=== PATIENT | female | born 1960 | race Caucasian/White ===

== ENCOUNTER → 2018-03-06 15:42 | Outpatient (CLI) | payer MEDICAID, SELFPAY ==
--- NOTE | 2018-03-06 15:44 | BI_ITS ---
MAMMOGRAPHY - BILATERAL SCREENING REASON FOR EXAM: Female, 57 years old. Routine annual screening examination. PERTINENT HISTORY: Mother with breast cancer. Grandmother with breast cancer. TECHNIQUE: Digital bilateral breast adrian (3D mammographic acquisition) in the CC and MLO projections. 2-D mediolateral oblique (MLO) and craniocaudad (CC) views of both breasts were obtained. CAD: Full Field Digital Mammography with Computer Added Detection was performed. COMPARISON: Comparison is made with prior outside examination dated June 07, 2016. FINDINGS: Breast Composition: The breasts are almost entirely fatty. There are no dominant masses or suspicious calcifications. No other significant abnormalities are identified. There has been no significant change since the prior study. BI/SCREENING MAMM (CAD), BILAT IMPRESSION: Stable bilateral screening mammogram. Yearly follow-up mammogram recommended. (A) ASSESSMENT CATEGORY: BIRADS Category 1: Negative. A letter regarding these results will be sent to the patient by the facility within 30 days. Approximately 10% of breast cancers are not detected by mammography. A normal mammogram should not delay biopsy of a clinically suspicious abnormality. [id number] Electronically Signed: Christopher Romeo MD at 15:36 EST Tel [phone], Service support ,
== END ==
DX: Z12.31 Encounter for screening mammogram for malignant neoplasm of breast (principal)
CPT/HCPCS: 77063; 77067

== ENCOUNTER → 2018-03-08 11:33 | Outpatient (CLI) | payer MEDICAID, SELFPAY ==
[2017-02-11 11:34] VITALS: BMI 43.3
--- NOTE | 2018-03-08 11:42 | RAD_ITS ---
STUDY: X-RAY - PELVIS REASON FOR EXAM: Female, 57 years old. Abnormal findings of limbs. TECHNIQUE: One view of the pelvis was obtained. COMPARISON: None. FINDINGS: There is a non-specific bowel gas pattern. There are a few small calcified phleboliths in the pelvic soft tissues. Multilevel degenerative changes are noted in the visualized lumbar spine. 1.5 cm round calcific density projecting lateral to the right ilium consistent with an injection granuloma in the buttock. Normal bilateral iliac wings, sacroiliac joints and visualized sacrum. Normal visualized bilateral superior and inferior pubic rami. There are degenerative changes of the pubic symphysis with articular narrowing and sclerosis. Normal ischial tuberosities. Normal visualized right femoral head. Normal right acetabulum. Normal right hip joint. Normal visualized left femoral head. Normal left acetabulum. Normal left hip joint. RAD/Pelvis 1 or 2 Views IMPRESSION: Degenerative changes of the lumbar spine and pubic symphysis. Electronically Signed: Kenton Biggs MD at 10:22 EST , Service support ,
--- NOTE | 2018-03-08 11:46 | RAD_ITS ---
STUDY: X-RAY - LEFT FEMUR REASON FOR STUDY: Female, 57 years old. Abnormal findings of limbs. TECHNIQUE: Frontal and lateral view(s) of the femur on 4 images. COMPARISON: None. FINDINGS: There is degenerative narrowing and particular sclerosis of the left sacroiliac joint. Left hip joint is unremarkable. Normal visualized femur. Normal visualized soft tissue structure. There is degenerative change at the left knee, with narrowing and periarticular spurring most prominent in the medial femorotibial compartment There is no demonstrated fracture or destructive process. RAD/Femur Min 2 Views IMPRESSION: No acute osseous abnormality of the left femur. There are degenerative changes at the left sacroiliac joint and left knee. Electronically Signed: Kenton Biggs MD at 14:47 EST , Service support ,
== END ==
PROVIDERS: Referring Provider Nurse Practitioner Family; Visit Provider Nurse Practitioner Family
DX: R93.6 Abnormal findings on diagnostic imaging of limbs (principal)
CPT/HCPCS: 72170; 73552

== ENCOUNTER → 2018-05-30 20:15 | Outpatient (CLI) | payer MEDICAID, SELFPAY | PROVIDERS: Referring Provider Nurse Practitioner Family | DX: G47.10 Hypersomnia, unspecified (principal) | CPT/HCPCS: 95810 ==

== ENCOUNTER → 2018-06-18 20:27 | Outpatient (CLI) | payer MEDICAID, SELFPAY | DX: G47.30 Sleep apnea, unspecified (principal) | CPT/HCPCS: 95811 ==

== ENCOUNTER → 2018-11-05 10:28 | Outpatient (CLI) | payer MEDICAID, SELFPAY ==
--- NOTE | 2018-11-05 10:34 | RAD_ITS ---
STUDY: X-RAY - RIGHT SHOULDER REASON FOR EXAM: Female, 58 years old. Pain. TECHNIQUE: 4 view(s) of the shoulder. COMPARISON: Chest, February 11, 2017. FINDINGS: Normal glenohumeral articulation. There is degenerative arthrosis of the acromioclavicular joint without inferior osseous spur formation. Normal acromion. There is no acute fracture, dislocation or destructive osseous pathology. Normal humeral head and visualized proximal humerus. The soft tissue structures are unremarkable. Normal visualized pulmonary apex. RAD/Shoulder min 2 Views IMPRESSION: Stable degenerative changes of the acromioclavicular joint. There is no acute fracture or dislocation. Electronically Signed: Gavin Bahena DO at 16:49 EDT Tel [phone], Service support ,
== END ==
PROVIDERS: Referring Provider Nurse Practitioner Family; Visit Provider Nurse Practitioner Family
DX: M25.511 Pain in right shoulder (principal)
CPT/HCPCS: 73030

== ENCOUNTER 2018-12-18 14:36 | Emergency (ER) | payer MEDICAID, SELFPAY ==
--- NOTE | 2018-12-18 14:20 | RAD_ITS ---
STUDY: X-RAY CHEST REASON FOR EXAM: Female, 58 years old. Cough and shortness of breath. TECHNIQUE: PA and lateral views of the chest. COMPARISON: Comparison is made with prior examination dated February 11, 2017. FINDINGS: The lungs are clear and expanded. There is no demonstrated pleural abnormality. Normal size heart. Normal mediastinum and karen. Normal visualized pulmonary arteries. Normal visualized aortic arch and descending thoracic aorta. There are diffuse degenerative changes of the visualized thoracic spine. There is degenerative osteoarthritis of the bilateral shoulders. There is no demonstrated abnormality of the visualized soft tissue structures of the upper abdomen. RAD/Chest PA and Lateral IMPRESSION: No acute abnormality is seen. Electronically Signed: Christopher Romeo, at 15:34 EDT , Service support ,
[2018-12-18 14:37] VITALS: BP 164/90; PULSE 89; RESP 20; TEMP 36.3; O2SAT 99; BMI 44.6
[2018-12-18 14:53] VITALS: PULSE 102; RESP 18; O2SAT 97
[2018-12-18] MEDS: Ipratropium/Albuterol Sulfate 3 ML AMPUL.NEB INHALATION (14:53)
[2018-12-18] MEDS: Albuterol 2.5 MG/3 ML VIAL.NEB. INHALATION ×3 (14:53→15:45)
--- NOTE | 2018-12-18 14:55 | ED.VIS.GEN ---
History of Present Illness Chief Complaint: Shortness of Breath Informant: Patient Onset: Yesterday Context: Gradual Onset Timing: Continuous Quality: Nasal symptoms, hoarse voice, nonproductive cough, dyspnea Location: Respiratory Current Severity: Mild Maximum Severity: Severe Worsened by: Walking Relieved by: Nothing Associated Symptoms: Respiratory Narrative: Patient is a 58-year-old woman with history of COPD and smokes approximate 1 pack/day who presents with rhinorrhea, congestion, cough, shortness of breath, wheezing and dyspnea on exertion that started 2 days ago. She denies fever, chills or night sweats. She denies ocular, visual or auditory symptoms. She denies leg pain, swelling discoloration. She has no history of PE or DVT. She has not taken any systemic steroids in the last 3 to 6 months. Prior similar symptoms: Yes Recent Illness/Hospitalization: No - Past Medical History (1) COPD exacerbation Status: Acute (2) History of hypertension Status: Chronic (3) Hyperlipidemia Status: Chronic (4) Obesity Status: Chronic Past Medical History - Allergies and Home Meds Allergies/Adverse Reactions: Allergies isoniazid Allergy (Verified 12/18/18 14:37) Other chemically induced hepatitis Primary Care Physician: [facility] Noa Whitaker [Primary Care Provider] - 3-5 Days if not improving Prior records reviewed: Yes Surgical History: cholecystectomy, hysterectomy, - - she has hhad hihtystectapoy and cholecystectomy Lives: Alone Smoking Status: Current every day smoker Alcohol: None Drugs: None - Family History Maternal Family History: Reports: Heart Disease Review of Systems General: Denies: Chills, Fever, Sweats Eyes: Denies: Visual changes - bilaterally, Blurred Vision - bilaterally, Diplopia ENT: Denies: Bilateral ear pain, Rhinorrhea, Sore throat Cardiovascular: Denies: Chest pain, Palpitations Respiratory: Reports: Dyspnea, Cough, Dyspnea on exertion. Denies: Sputum, Orthopnea, Paroxysmal nocturnal dyspnea Gastrointestinal: Denies: Abdominal pain, Nausea, Vomiting, Diarrhea, Melena, Hematochezia Genitourinary: Denies: Dysuria, Hematuria, Frequency Musculoskeletal: Denies: Myalgias, Arthralgias, Back pain, Swelling, Extremity Pain Skin: Denies: Rash, Wounds Neurological: Denies: Headache, Weakness, Numbness Hematologic: Denies: Easy bruising Allergy: Denies: Uticaria, Swelling of the mouth, Swelling of the tongue Physical Exam Vital Signs/Narrative: Vital Signs Temp Pulse Resp BP Pulse Ox 12/18/18 14:37 97.4 F L 89 20 H 164/90 H 99 Inital Vital Signs reviewed: Yes General: Well nourished, Well developed, No Acute Distress Head: Normocephalic, Atraumatic Eyes: Perrl, EOMI ENT: Moist mucous membranes, No rhinorrhea Neck: Supple, Nontender Cardiovascular: Regular rate, Regular rhythm, No murmurs Respiratory: Chest nontender, Wheezing, Diminished, Decreased Air Movement - Prolonged expiratory phase. Negative for: No distress, CTA bilaterally Abdomen: Soft, Nontender, Nondistended, Normal bowel sounds Back: Nontender, Normal Inspection Extremities: Nontender, No edema, - - There is no asymmetry, swelling, discoloration, leg vein distention, palpable cords or tenderness along the distribution of the deep venous system. Skin: Normal color, No rash, No Trauma. Negative for: Cyanosis, Diaphoresis, Jaundice Neurological: Alert, Oriented x3, Cranial nerves II-XII grossly intact, Normal Strength, Normal Sensation Psychological: Normal affect, Normal Mood Diagnostic/Tx/Re-eval Chest X-Ray - ED: 2 View, Read by ED Physician, Normal, Heart, Mediastinum, Bony Structures, No Acute Disease, Chronic Changes, - - There is no evidence of pneumothorax, effusion or infiltrate. X-ray was interpreted by me at 1530. Impressions Chest X-Ray 12/18/18 14:20 IMPRESSION: No acute abnormality is seen. Electronically Signed: Christopher Romeo, at 15:34 EDT , Service support , 12/18/18 14:20 Chest PA and Lateral [RAD] Stat Laboratory Results 12/18/18 12/18/18 15:10 15:10 WBC 8.4 RBC 4.83 Hgb 13.9 Hct 41.6 MCV 86.1 MCH 28.8 MCHC 33.4 RDW Std Deviation 44.6 H RDW Coeff of Christina 14.0 Plt Count 230 MPV 10.5 Immature Gran % (Auto) 0.200 Neut % (Auto) 52.8 Lymph % (Auto) 36.2 [place] % (Auto) 6.3 Eos % (Auto) 3.9 Baso % (Auto) 0.6 Absolute Neuts (auto) 4.4 Absolute Lymphs (auto) 3.03 Nucleated RBC % 0 Sodium 138 Potassium 3.6 Chloride 104 Carbon Dioxide 29.0 Anion Gap 5 BUN 15 Creatinine 0.86 Estim Creat Clear Calc 57.55 Est GFR (MDRD) Af Amer 86 Est GFR (MDRD) Non-Af 71 BUN/Creatinine Ratio 17.4 Glucose 118 H Calcium 9.4 CBC and basic metabolic panel are unremarkable. Chest x-ray was unremarkable. She was reexamined at 1540. She is presently wheeze free. She is no longer tachypneic. She will be discharged after her last aerosol treatment. Will discharge with prescription for prednisone and she was encouraged to discontinue smoking - Medical Decision Making She presents respiratory symptoms. Patient's history and physicals concerning for exacerbation COPD. Need to rule out bronchitis versus pneumonia. Chest x-rays obtained. Baseline blood work was ordered. She was treated with 60 mg of prednisone, DuoNeb and albuterol. Patient has no risk factors for PE or DVT and clinically there is no evidence of DVT. History is consistent with upper respiratory infection exacerbating COPD. Patient is wheeze free and does not have a productive cough antibiotic's were not ordered. Was reexamined at 1610. She is wheeze free. She is sleeping no distress. Pulse ox 93%. This is slightly lower and represents paradoxical hypoxia. She will be discharged home to follow-up with her primary care physician. ED Disposition - Plan for ED Patient: Disposition: Home or Assisted Living Diagnosis: Acute exacerbation of chronic obstructive pulmonary disease (COPD), Acute bronchospasm Instructions: Copd Flare Prescriptions: Prednisone [Deltasone] 40 mg PO DAILY #10 tab Transmission Status: Received by [id number] Referrals: [facility] Smart [Primary Care Provider] - 3-5 Days if not improving Additional Instructions: Your prescription was electronically transmitted to [facility].
[2018-12-18 15:11] VITALS: RESP 20; O2SAT 94
[2018-12-18 15:12] VITALS: BP 164/90; PULSE 102; RESP 20; TEMP 36.3; O2SAT 94
[2018-12-18] MEDS: predniSONE 20 MG Tablet 60 MG PO (15:13)
[2018-12-18 15:19] LABS: Absolute Lymphocyte Count 3.03 X10^3/uL (0.83-4.51); Absolute Neutrophil Count 4.4 X10^3/uL (2.0-7.7); Basophil# 0.05 X10^3/uL; Basophil% 0.6 % (0-1); Eosinophil# 0.33 X10^3/uL; Eosinophils% 3.9 % (0-5); Hematocrit 41.6 % (37-47); Hemoglobin 13.9 g/dL (12.0-15.0); Lymphocyte # 3.03 X10^3/ul (4.0); Lymphocyte % 36.2 % (19-41); Mean Corp Hgb Conc 33.4 g/dL (32-36); Mean Corpuscular Hgb 28.8 pg (27.0-32.0); Mean Corpuscular Volume 86.1 fL (81-99); Mean Platelet Vol. 10.5 fl (6.2-12.0); Monocyte# 0.53 X10^3/uL; Monocyte% 6.3 % (0-10); NRBC Flagged by Analyzer 0 % (0-5); Neutrophil # 4.42 X10^3/uL (2.7-7.7); Neutrophil % 52.8 % (47-70); Platelet Count 230 K/mm3 (150-450); RBC Distribution Width SD 44.6 fl (35.1-43.9); Red Blood Count 4.83 M/mm3 (4.2-5.4); White Blood Count 8.4 K/mm3 (4.4-11.0)
[2018-12-18 15:40] LABS: Anion Gap 5 (5-15); BUN 15 mg/dL (7-18); BUN/Creat Ratio 17.4 RATIO (10-20); Calcium,Total 9.4 mg/dL (8.5-10.1); Chloride 104 mmol/L (98-107); Creatinine, Serum 0.86 mg/dL (0.55-1.02); EST Glomerular Filtration Rate 71 mL/min (>60); Est Glom Filt Rate - Afr Amer 86 mL/min (>60); Estimated Creatinine Clearance 57.55 ml/min; Glucose 118 mg/dL (74-106); Potassium 3.6 mmol/L (3.5-5.1); Sodium Level 138 mmol/L (136-145)
[2018-12-18 15:45] VITALS: PULSE 107; RESP 18; O2SAT 95
[2018-12-18 16:19] VITALS: BP 134/57; PULSE 106; RESP 20; TEMP 37.2; O2SAT 94
--- NOTE | 2018-12-18 16:20 | ED.RN ---
REVIEWED D/C INSTRUCTIONS, FOLLOW UP CARE, PRESCRIPTION, AND S/S THAT WOULD WARRANT A RETURN TO THE ED WITH PT. PT VERBALIZED AN UNDERSTANDING AND DENIES FURTHER QUESTIONS FOR THIS RN. PT SKIN P/W/D, RESP EVEN AND UNLABORED, PT A&O X 3, NO DISTRESS NOTED. PT AMBULATED OUT OF ED, GAIT STEADY.
== END 2018-12-18 16:22 | disposition home or self-care (01) ==
PROVIDERS: Emergency Provider Emergency Medicine
DX: J44.1 Chronic obstructive pulmonary disease with (acute) exacerbation (principal); F17.200 Nicotine dependence, unspecified, uncomplicated; I10 Essential (primary) hypertension; E78.5 Hyperlipidemia, unspecified; E66.9 Obesity, unspecified; Z82.49 Family history of ischemic heart disease and other diseases of the circulatory system; Z90.49 Acquired absence of other specified parts of digestive tract; Z90.710 Acquired absence of both cervix and uterus
CPT/HCPCS: 71046; 80048; 85025; 94640; 94760; 99284; A4216

== ENCOUNTER → 2019-10-31 07:01 | Outpatient (CLI) | payer MEDICAID, SELFPAY ==
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
== END ==
DX: R05 Cough (principal)
CPT/HCPCS: 94060; 94726; 94729

== ENCOUNTER → 2019-12-15 07:54 | Outpatient (CLI) | payer MEDICAID, SELFPAY ==
[2019-12-15 08:47] LABS: Absolute Lymphocyte Count 2.27 X10^3/uL (0.83-4.51); Absolute Neutrophil Count 4.9 X10^3/uL (2.0-7.7); Basophil# 0.05 X10^3/uL; Basophil% 0.6 % (0-1); Eosinophil# 0.23 X10^3/uL; Eosinophils% 2.9 % (0-5); Hematocrit 41.3 % (37-47); Hemoglobin 13.4 g/dL (12.0-15.0); Lymphocyte # 2.27 X10^3/ul (4.0); Lymphocyte % 28.6 % (19-41); Mean Corp Hgb Conc 32.4 g/dL (32-36); Mean Corpuscular Hgb 27.3 pg (27.0-32.0); Mean Corpuscular Volume 84.1 fL (81-99); Mean Platelet Vol. 10.2 fl (6.2-12.0); Monocyte# 0.46 X10^3/uL; Monocyte% 5.8 % (0-10); NRBC Flagged by Analyzer 0 % (0-5); Neutrophil % 61.6 % (47-70); Platelet Count 227 K/mm3 (150-450); RBC Distribution Width CV 15.4 % (11.6-14.6); RBC Distribution Width SD 46.6 fl (35.1-43.9); Red Blood Count 4.91 M/mm3 (4.2-5.4); Vitamin D,25 Hydroxy 93.9 ng/mL
[2019-12-15 08:57] LABS: ALB/GLOB Ratio 1.2 RATIO (0.9-2.4); AST(SGOT) 14 U/L (15-37); Alanine Aminotransfer ALT/SGPT 22 U/L (13-56); Albumin, Serum 3.8 g/dL (3.2-5.0); Alkaline Phosphatase 100 U/L (45-117); Anion Gap 5 (5-15); BUN 13 mg/dL (7-18); BUN/Creat Ratio 15.3 RATIO (10-20); Calcium,Total 9.7 mg/dL (8.5-10.1); Chloride 101 mmol/L (98-107); Cholesterol 178 mg/dL (200); Creatinine, Serum 0.85 mg/dL (0.55-1.02); EST Glomerular Filtration Rate 72 mL/min (>60); Est Glom Filt Rate - Afr Amer 87 mL/min (>60); Globulin 3.3 g/dL (2.2-4.2); Glucose 147 mg/dL (74-106); High Density Lipoprotein 47 mg/dL; Potassium 3.6 mmol/L (3.5-5.1); Protein, Total 7.1 g/dL (6.4-8.2); Sodium Level 137 mmol/L (136-145); T4 Free Direct 1.22 ng/dL (0.76-1.46); Thyroid Stim Hormone (TSH) 2.31 uIU/mL (0.358-3.74); Triglycerides 127 mg/dL; Very Low Density Lipoprotein 25 mg/dL (5-40)
[2019-12-15 08:58] LABS: Hemoglobin A1c 6.7 % (3.8-5.6)
== END ==
PROVIDERS: Referring Provider Nurse Practitioner Family; Visit Provider Nurse Practitioner Family
DX: E11.9 Type 2 diabetes mellitus without complications (principal); I10 Essential (primary) hypertension; E55.9 Vitamin D deficiency, unspecified
CPT/HCPCS: 36415; 80053; 80061; 82306; 83036; 84439; 84443; 85025

== ENCOUNTER 2020-02-18 16:43 | Emergency (ER) | payer MEDICAID, SELFPAY ==
[2020-02-18 16:47] VITALS: BP 132/76; PULSE 89; RESP 20; TEMP 36.1; O2SAT 97; BMI 47.8
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
[2020-02-18] MEDS: fentaNYL 100 MCG/2 ML Ampul 50 MCG IV (16:56)
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
[2020-02-18 17:01] LABS: Absolute Lymphocyte Count 3.45 X10^3/uL (0.83-4.51); Absolute Neutrophil Count 12.1 X10^3/uL (2.0-7.7); Basophil# 0.05 X10^3/uL; Basophil% 0.3 % (0-1); Eosinophil# 0.18 X10^3/uL; Eosinophils% 1.1 % (0-5); Hematocrit 38.4 % (37-47); Hemoglobin 12.5 g/dL (12.0-15.0); Lymphocyte # 3.45 X10^3/ul (4.0); Mean Corp Hgb Conc 32.6 g/dL (32-36); Mean Corpuscular Hgb 27.5 pg (27.0-32.0); Mean Corpuscular Volume 84.4 fL (81-99); Monocyte# 0.57 X10^3/uL; Monocyte% 3.5 % (0-10); NRBC Flagged by Analyzer 0 % (0-5); Neutrophil # 12.06 X10^3/uL (2.7-7.7); Neutrophil % 73.2 % (47-70); Platelet Count 316 K/mm3 (150-450); RBC Distribution Width CV 15.8 % (11.6-14.6); RBC Distribution Width SD 47.3 fl (35.1-43.9); Red Blood Count 4.55 M/mm3 (4.2-5.4); White Blood Count 16.5 K/mm3 (4.4-11.0)
[2020-02-18 17:10] VITALS: PULSE 79; RESP 18
[2020-02-18 17:15] VITALS: BP 82/59; BP 88/61; PULSE 71; RESP 18; O2SAT 100; O2SAT 97
[2020-02-18] MEDS: Ipratropium/Albuterol Sulfate 3 ML AMPUL.NEB INHALATION (17:15)
[2020-02-18 17:19] LABS: Partial Thromboplast Time 23.5 Seconds (24.1-36.2); Prothrombin Time (Protime)PT. 12.7 SECONDS (11.7-14.9)
[2020-02-18] MEDS: 0.9% Normal Saline 1,000 ML 999 ML IV ×2 (17:19)
[2020-02-18 17:40] VITALS: BP 105/65; PULSE 74; RESP 16; TEMP 36.1; O2SAT 100
== END 2020-02-18 17:32 | disposition short-term general hospital (02) ==
PROVIDERS: Emergency Provider Emergency Medicine
DX: S20.219A Contusion of unspecified front wall of thorax, initial encounter (principal); S93.04XA Dislocation of right ankle joint, initial encounter; V49.60XA Unspecified car occupant injured in collision with unspecified motor vehicles in traffic accident, initial encounter; Y93.9 Activity, unspecified; Y92.410 Unspecified street and highway as the place of occurrence of the external cause; Y99.8 Other external cause status; Z82.49 Family history of ischemic heart disease and other diseases of the circulatory system; Z90.49 Acquired absence of other specified parts of digestive tract; Z90.710 Acquired absence of both cervix and uterus; E78.5 Hyperlipidemia, unspecified; I10 Essential (primary) hypertension; J44.9 Chronic obstructive pulmonary disease, unspecified; F17.200 Nicotine dependence, unspecified, uncomplicated
CPT/HCPCS: 71045; 72040; 72170; 73600; 85025; 85610; 85730; 93005; 94640; 99285; J7030

== ENCOUNTER 2020-03-12 21:07 | Emergency (ER) | payer MEDICAID, SELFPAY ==
[2020-03-12 21:08] VITALS: BP 149/89; PULSE 109; RESP 16; TEMP 36.4; O2SAT 96; BMI 43.9
[2020-03-12 21:20] VITALS: TEMP 36.6
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
--- NOTE | 2020-03-12 21:55 | RAD_ITS ---
History: recent Rt ankle surgery. Lateral foot pain and swelling. recent Rt ankle surgery. Lateral foot pain and swelling. COMPARISON: Prior radiographs of the right ankle in February 18, 2020 FINDINGS: # of images incl. paperwork: 3 XR Foot Min 3 Views: Right BONE AND JOINTS: Comminuted intra-articular fracture involving the proximal phalanx of the great toe. Joint space narrowing at the first metatarsophalangeal joint Osteophyte formation is seen at the first metatarsal head. There is also a healing fracture of the second metatarsal at the head neck junction with callus formation. Irregular appearance to the medial aspect of the navicular that is suspect for a subacute fracture that is best seen on the oblique view. Corticated fragment seen at the base of the cuboid however this has the appearance of a accessory ossification Small osseous fragment seen dorsal to the talus may be related to prior avulsion injury. Suspect avulsed fragment at the lateral malleolus however poorly visualized on this study Healing medial malleolar fracture also poorly visualized on this study SOFT TISSUES: Soft tissue swelling at the dorsum of the foot No radiopaque foreign body. RAD/Foot min 3 Views IMPRESSION: Comminuted intra-articular fracture proximal fourth great toe. There is also healing fracture of the second metatarsal at the head neck junction Irregular appearance to the medial aspect of the navicular suspect for subacute fracture with limited visualization on this study. Also suspect small avulsion at the lateral malleolus and healing medial malleolar fracture poorly visualized on this study at 2244 Reported and signed by: Shanna Rosas DO Electronically Signed: Shanna Rosas DO at 22:43 EST Tel , Service support ,
[2020-03-12 21:58] LABS: Absolute Lymphocyte Count 1.57 X10^3/uL (0.83-4.51); Absolute Neutrophil Count 5.8 X10^3/uL (2.0-7.7); Basophil# 0.03 X10^3/uL; Basophil% 0.4 % (0-1); Eosinophils% 3.6 % (0-5); Hematocrit 33.1 % (37-47); Hemoglobin 10.4 g/dL (12.0-15.0); Lymphocyte # 1.57 X10^3/ul (4.0); Lymphocyte % 18.8 % (19-41); Mean Corp Hgb Conc 31.4 g/dL (32-36); Mean Corpuscular Hgb 26.7 pg (27.0-32.0); Mean Corpuscular Volume 85.1 fL (81-99); Mean Platelet Vol. 9.3 fl (6.2-12.0); Monocyte# 0.67 X10^3/uL; NRBC Flagged by Analyzer 0 % (0-5); Neutrophil # 5.76 X10^3/uL (2.7-7.7); Platelet Count 429 K/mm3 (150-450); Red Blood Count 3.89 M/mm3 (4.2-5.4); White Blood Count 8.4 K/mm3 (4.4-11.0)
[2020-03-12] MEDS: 0.9% Normal Saline 1,000 ML 999 ML IV (22:02)
[2020-03-12] MEDS: Cefazolin 2 GM in 0.9% Normal Saline 100 ML IV (22:02)
[2020-03-12 22:10] VITALS: BP 152/95; PULSE 104; RESP 19; TEMP 36.6; O2SAT 98
[2020-03-12 22:18] LABS: Anion Gap 5 (5-15); BUN 16 mg/dL (7-18); BUN/Creat Ratio 22.2 RATIO (10-20); Calcium,Total 9.7 mg/dL (8.5-10.1); Chloride 100 mmol/L (98-107); Creatinine, Serum 0.72 mg/dL (0.55-1.02); EST Glomerular Filtration Rate 87 mL/min (>60); Est Glom Filt Rate - Afr Amer 105 mL/min (>60); Estimated Creatinine Clearance 67.88 ml/min; Glucose 163 mg/dL (74-106); Potassium 3.9 mmol/L (3.5-5.1); Sodium Level 137 mmol/L (136-145)
[2020-03-12 22:20] VITALS: TEMP 36.8
[2020-03-12 22:20] LABS: Lactic Acid 1.4 mmol/L (0.4-1.9)
[2020-03-12 23:47] VITALS: BP 161/76; PULSE 106; RESP 15; O2SAT 96
[2020-03-12 23:53] VITALS: BP 161/76; PULSE 105; RESP 15; O2SAT 96
== END 2020-03-12 23:54 | disposition home or self-care (01) ==
PROVIDERS: Emergency Provider Emergency Medicine
DX: L03.115 Cellulitis of right lower limb (principal); F17.200 Nicotine dependence, unspecified, uncomplicated; J44.9 Chronic obstructive pulmonary disease, unspecified; I10 Essential (primary) hypertension; E78.5 Hyperlipidemia, unspecified; E11.9 Type 2 diabetes mellitus without complications; Z82.49 Family history of ischemic heart disease and other diseases of the circulatory system; Z90.49 Acquired absence of other specified parts of digestive tract; Z90.710 Acquired absence of both cervix and uterus
CPT/HCPCS: 73630; 80048; 83605; 85025; 87040; 96360; 99284; J7030; A4216

== ENCOUNTER 2020-04-14 18:37 | Inpatient (IN) | payer MEDICAID, SELFPAY ==
[2020-04-14 18:39] VITALS: BP 151/82; PULSE 103; RESP 18; TEMP 36.2; O2SAT 97; BMI 43.0
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
--- NOTE | 2020-04-14 19:06 | US_ITS ---
STUDY: VENOUS DOPPLER ULTRASOUND - BILATERAL LOWER EXTREMITIES REASON FOR EXAM: Female, 60 years old. BILAT REDNESS PAIN SWELLING AND WARMTH TECHNIQUE: Ultrasound evaluation of the deep vein system to include cooley-scale imaging and compression was performed. Cooley-scale imaging and Doppler sonographic evaluation, including duplex spectral analysis and qualitative color flow sonography, was performed. COMPARISON: None. FINDINGS: RIGHT LEG Common Femoral Vein: Normal compression, spontaneity and augmentation. Normal color Doppler. Common Femoral Vein/Greater Saphenous Junction: Normal compression, spontaneity and augmentation. Normal color Doppler. Deep Femoral Vein: Normal compression, spontaneity and augmentation. Normal color Doppler. Femoral Proximal: Normal compression, spontaneity and augmentation. Normal color Doppler. Femoral Middle: Normal compression, spontaneity and augmentation. Normal color Doppler. Femoral Distal: Normal compression, spontaneity and augmentation. Normal color Doppler. Popliteal Vein: Normal compression, spontaneity and augmentation. Normal color Doppler. Posterior Tibial Vein: Normal compression, spontaneity and augmentation. Normal color Doppler. Peroneal Vein: Normal compression, spontaneity and augmentation. Normal color Doppler. LEFT LEG Common Femoral Vein: Normal compression, spontaneity and augmentation. Normal color Doppler. Common Femoral Vein/Greater Saphenous Junction: Normal compression, spontaneity and augmentation. Normal color Doppler. Deep Femoral Vein: Normal compression, spontaneity and augmentation. Normal color Doppler. Femoral Proximal: Normal compression, spontaneity and augmentation. Normal color Doppler. Femoral Middle: Normal compression, spontaneity and augmentation. Normal color Doppler. Femoral Distal: Normal compression, spontaneity and augmentation. Normal color Doppler. Popliteal Vein: Normal compression, spontaneity and augmentation. Normal color Doppler. Posterior Tibial Vein: Normal compression, spontaneity and augmentation. Normal color Doppler. Peroneal Vein: Normal compression, spontaneity and augmentation. Normal color Doppler. US/Venous Duplex Imag/David Extrem IMPRESSION: Normal venous Doppler ultrasound of the bilateral lower extremities. Electronically Signed: Irineo Mitchell MD at 20:28 EST , Service support ,
[2020-04-14 19:34] VITALS: BP 151/82; PULSE 103; RESP 18; TEMP 36.2; O2SAT 97
[2020-04-14 19:38] LABS: Absolute Lymphocyte Count 2.14 X10^3/uL (0.83-4.51); Basophil# 0.05 X10^3/uL; Basophil% 0.6 % (0-1); Eosinophil# 0.26 X10^3/uL; Eosinophils% 2.9 % (0-5); Hematocrit 39.1 % (37-47); Hemoglobin 12.4 g/dL (12.0-15.0); Lymphocyte # 2.14 X10^3/ul (4.0); Lymphocyte % 23.6 % (19-41); Mean Corp Hgb Conc 31.7 g/dL (32-36); Mean Corpuscular Hgb 26.2 pg (27.0-32.0); Mean Corpuscular Volume 82.7 fL (81-99); Mean Platelet Vol. 9.7 fl (6.2-12.0); Monocyte# 0.59 X10^3/uL; Monocyte% 6.5 % (0-10); NRBC Flagged by Analyzer 0 % (0-5); Neutrophil % 66.1 % (47-70); Platelet Count 352 K/mm3 (150-450); RBC Distribution Width CV 16.6 % (11.6-14.6); RBC Distribution Width SD 50.4 fl (35.1-43.9); Red Blood Count 4.73 M/mm3 (4.2-5.4); White Blood Count 9.1 K/mm3 (4.4-11.0)
[2020-04-14 20:00] LABS: Anion Gap 4 (5-15); BUN 20 mg/dL (7-18); Calcium,Total 9.5 mg/dL (8.5-10.1); Chloride 101 mmol/L (98-107); Creatinine, Serum 0.83 mg/dL (0.55-1.02); EST Glomerular Filtration Rate 74 mL/min (>60); Est Glom Filt Rate - Afr Amer 89 mL/min (>60); Estimated Creatinine Clearance 58.13 ml/min; Glucose 169 mg/dL (74-106); Potassium 3.8 mmol/L (3.5-5.1); Sodium Level 136 mmol/L (136-145)
[2020-04-14 20:19] LABS: Lactic Acid 2.2 mmol/L (0.4-1.9)
[2020-04-14 21:03] VITALS: BP 153/76; PULSE 93; RESP 18; TEMP 37.1; O2SAT 94
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
[2020-04-14 22:20] VITALS: BP 151/73; PULSE 90; RESP 18; TEMP 36.8; O2SAT 94
[2020-04-14 22:22] VITALS: BMI 41.3
--- NOTE | 2020-04-14 22:25 | PCS.PANDOC ---
PANDEMIC DOCUMENTATION INITIATED: Date: 04/14/20 Time: 4086
[2020-04-14 22:26] VITALS: BMI 41.3
[2020-04-14 22:55] LABS: Bedside Glucose 135 mg/dL (70-110)
[2020-04-14 23:33] LABS: Reflex Lactate? Y
[2020-04-15 00:25] LABS: Lactic Acid 1.1 mmol/L (0.4-1.9)
[2020-04-15 03:59] VITALS: BP 160/80; PULSE 107; RESP 18; TEMP 36.8; O2SAT 93
[2020-04-15] MEDS: Acetaminophen 325 MG Tablet 650 MG PO ×3 (04:13→16:16)
[2020-04-15] MEDS: Insulin Lispro 100 UNIT/ML INSULN.PEN SC ×4 (06:42→21:36)
[2020-04-15 06:43] LABS: Basophil# 0.05 X10^3/uL; Basophil% 0.6 % (0-1); Eosinophil# 0.28 X10^3/uL; Eosinophils% 3.6 % (0-5); Hematocrit 38.5 % (37-47); Hemoglobin 11.9 g/dL (12.0-15.0); Lymphocyte % 24.3 % (19-41); Mean Corp Hgb Conc 30.9 g/dL (32-36); Mean Corpuscular Hgb 25.4 pg (27.0-32.0); Mean Corpuscular Volume 82.1 fL (81-99); Mean Platelet Vol. 9.7 fl (6.2-12.0); Monocyte% 7.7 % (0-10); NRBC Flagged by Analyzer 0 % (0-5); Neutrophil # 4.95 X10^3/uL (2.7-7.7); Neutrophil % 63.4 % (47-70); Platelet Count 300 K/mm3 (150-450); RBC Distribution Width CV 16.6 % (11.6-14.6); RBC Distribution Width SD 50.1 fl (35.1-43.9); Red Blood Count 4.69 M/mm3 (4.2-5.4); White Blood Count 7.8 K/mm3 (4.4-11.0)
[2020-04-15 06:51] LABS: Bedside Glucose 169 mg/dL (70-110)
[2020-04-15 07:08] LABS: Anion Gap 2 (5-15); BUN 14 mg/dL (7-18); BUN/Creat Ratio 22.1 RATIO (10-20); Calcium,Total 9.5 mg/dL (8.5-10.1); Chloride 106 mmol/L (98-107); Creatinine, Serum 0.63 mg/dL (0.55-1.02); EST Glomerular Filtration Rate 101 mL/min (>60); Est Glom Filt Rate - Afr Amer 122 mL/min (>60); Estimated Creatinine Clearance 76.59 ml/min; Glucose 143 mg/dL (74-106); Potassium 3.9 mmol/L (3.5-5.1); Sodium Level 139 mmol/L (136-145)
--- NOTE | 2020-04-15 07:38 | RAD_ITS ---
STUDY: X-RAY - RIGHT FOOT CLINICAL: Cellulitis, infection/wound right foot and ankle. TECHNIQUE: 3 view(s) of the foot. COMPARISON: Radiographs 03/12/2020. FINDINGS: There is a healing nondisplaced fracture of the medial navicular. There is a small avulsion fracture at the dorsal aspect of the distal talus. Normal visualized subtalar, talonavicular, calcaneocuboid, tarsal and tarsometatarsal articulations. There is a healing nondisplaced fracture of the neck of the second metatarsal. There is mild joint space narrowing of the metatarsophalangeal joint of the great toe. Normal tibial and fibular sesamoid bones. Normal interphalangeal joint of the great toe. There is a healing nondisplaced fracture of the first proximal phalanx. Normal second through fifth metatarsophalangeal joints. Normal interphalangeal joints and phalanges of the lesser toes. There is soft tissue swelling. RAD/Foot min 3 Views IMPRESSION: Healing fractures of the first proximal phalanx, second metatarsal neck, and medial navicular. Small avulsion fracture of the distal talus. Mild arthrosis of the first metatarsophalangeal joint. Soft tissue swelling. No demonstrated active bone destruction. Electronically Signed: Celso Aleman MD at 13:13 EST Tel , Service support ,
--- NOTE | 2020-04-15 08:07 | PCM.PN.HOSP ---
Patient Problems: Active and Suspected Problems Cellulitis (Acute) Reason for Visit: Right lower extremity cellulitis Subjective: Patient is a 60-year-old female admitted with redness involving the right leg and assessment of cellulitis made admitted to regular nursing floor for further management Objective: GENERAL: cooperative HEENT: Atraumatic; EYES; Anicteric, Normal Conjunctiva NECK; supple, normal thyroid, RESPIRATORY: Diminished to auscultation CARDIOVASCULAR: Regular S1 S2, GI: soft, normoactive bowel sounds, : No Renal angle tenderness; EXTREMITIES: Area of erythema involving the distal half of the right lower extremity MUSCULOSKELETAL: no muscle waisting NEURO: Awake; no lateralizing signs. SKIN: As described above PSYCH; Flat affect Vitals/I&O's: Vital Signs Temp Pulse Resp BP Pulse Ox 98.2 F 107 H 18 160/80 H 93 04/15/20 03:59 04/15/20 03:59 04/15/20 03:59 04/15/20 03:59 04/15/20 03:59 Oxygen Delivery Method Room Air Weight: 105.7 kg Body Mass Index (BMI) 41.3 Intake and Output for Last 24 Hours 04/13/20 04/14/20 04/15/20 23:59 23:59 23:59 Intake Total 412 / 412 624 / 624 Output Total 600 / 600 Balance 412 / 412 Laboratory Results 04/14/20 19:28: WBC 9.1, RBC 4.73, Hgb 12.4, Hct 39.1, MCV 82.7, MCH 26.2 L, MCHC 31.7 L, RDW Std Deviation 50.4 H, RDW Coeff of Christina 16.6 H, Plt Count 352, MPV 9.7, Immature Gran % (Auto) 0.300, Neut % (Auto) 66.1, Lymph % (Auto) 23.6, [place] % (Auto) 6.5, Eos % (Auto) 2.9, Baso % (Auto) 0.6, Absolute Neuts (auto) 6.0, Absolute Lymphs (auto) 2.14, Nucleated RBC % 0 04/14/20 19:28: Sodium 136, Potassium 3.8, Chloride 101, Carbon Dioxide 31.0, Anion Gap 4 L, BUN 20 H, Creatinine 0.83, Estim Creat Clear Calc 58.13, Est GFR (MDRD) Af Amer 89, Est GFR (MDRD) Non-Af 74, BUN/Creatinine Ratio 24.0 H, Glucose 169 H, Calcium 9.5 04/14/20 19:28: Lactic Acid 2.2 H* 04/14/20 22:40: POC Glucose 135 H 04/14/20 23:45: Lactic Acid 1.1 04/15/20 06:16: Sodium 139, Potassium 3.9, Chloride 106, Carbon Dioxide 31.0, Anion Gap 2 L, BUN 14, Creatinine 0.63, Estim Creat Clear Calc 76.59, Est GFR (MDRD) Af Amer 122, Est GFR (MDRD) Non-Af 101, BUN/Creatinine Ratio 22.1 H, Glucose 143 H, Calcium 9.5 04/15/20 06:16: WBC 7.8, RBC 4.69, Hgb 11.9 L, Hct 38.5, MCV 82.1, MCH 25.4 L, MCHC 30.9 L, RDW Std Deviation 50.1 H, RDW Coeff of Christina 16.6 H, Plt Count 300, MPV 9.7, Immature Gran % (Auto) 0.400, Neut % (Auto) 63.4, Lymph % (Auto) 24.3, [place] % (Auto) 7.7, Eos % (Auto) 3.6, Baso % (Auto) 0.6, Absolute Neuts (auto) 5.0, Absolute Lymphs (auto) 1.90, Nucleated RBC % 0 04/15/20 06:39: POC Glucose 169 H Current Medications Acetaminophen (Acetaminophen 325 Mg Tablet) 650 mg PO Q6H PRN PRN PRN Reason: Pain Score 1-10/Temp > 100.7 F Last Admin: 04/15/20 04:13 Dose: 650 mg Documented by: Dextrose (Dextrose 50%-Water 25 Gm/50 Ml Disp.Syrin) 0 gm IV X1 PRN; Protocol PRN Reason: Hypoglycemia Glucagon (Glucagon 1 Mg/Ml Syringe) 1 mg IM .X1 PRN PRN Reason: Hypoglycemia Hydrochlorothiazide (Hydrochlorothiazide 25 Mg Tablet) 25 mg PO DAILY LAURA Ampicillin Sodium/Sulbactam (Sodium 3 gm/ Sodium Chloride) 112 mls @ 150 mls/hr IV Q6 LAUR[facility] Last Infusion: 04/15/20 07:17 Dose: Infused Documented by: Sodium Chloride () 250 mls @ 15 mls/hr IV .[id number] PRN PRN Reason: Saline Flush Sodium Chloride () 250 mls @ 15 mls/hr IV .[id number] PRN PRN Reason: Additional IVPB Infusion Insulin Human Lispro (Insulin Lispro 100 Unit/Ml Insuln.Pen) 0 unit SC ACHS LAURA; Protocol Last Admin: 04/15/20 06:42 Dose: 1 u Documented by: Losartan Potassium (Losartan Potassium 50 Mg Tablet) 50 mg PO DAILY [facility] Melatonin (Melatonin 3 Mg Tablet) 3 mg PO QHS PRN PRN PRN Reason: INSOMNIA Montelukast Sodium (Montelukast 10 Mg Tablet) 10 mg PO DAILY [facility] Ondansetron HCl (Ondansetron 4 Mg/2 Ml Vial) 4 mg IV Q8H PRN PRN PRN Reason: NAUSEA/VOMITING Senna/Docusate Sodium (Senna/Docusate Sodium 1 Tablet) 2 tablet PO BID PRN PRN PRN Reason: Constipation Sertraline HCl (Sertraline 100 Mg Tablet) 100 mg PO DAILY [facility] Sodium Chloride (0.9% Saline Lock 10 Ml Syringe) 10 - 40 ml IV UD PRN PRN Reason: SALINE FLUSH Medical Necessity - Tobacco Use Smoking Status: Current every day smoker Tobacco Use: Cigarettes Assessment/Plan All Active Problems Cellulitis (Acute) Patient is a 60-year-old female admitted with redness involving the right leg and assessment of cellulitis made admitted to regular nursing floor for further management 1. Severe sepsis secondary to cellulitis involving the right lower extremity -Admitted to regular nursing floor started on Unasyn 2. Hypertension - Blood pressure controlled, home medications continued with dose adjustment as needed 3. Diabetes mellitus type II -patient's oral hypoglycemics held. -Placed on long acting insulin, Accu-Cheks a.c. and at bedtime and covered with sliding scale insulin 4. Overlap syndrome?asthma and COPD ?Did continue patient on bronchodilator treatment from home 5. Depression with anxiety ?On SSRI did continue 6. Obesity with BMI of 43.0 ?Weight loss advised 7. Tobacco dependence - Counseled on cessation, offered nicotine patch for tobacco cravings 8. DVT prophylaxis ?Lovenox Inpatient E&M: [id number] [place] [id number]
[2020-04-15 08:37] VITALS: BP 136/62; PULSE 83; RESP 18; TEMP 36.8; O2SAT 96
--- NOTE | 2020-04-15 08:45 | NURSING ---
wound photo: right lateral foot/ankle
[2020-04-15] MEDS: Losartan Potassium 50 MG Tablet PO (08:46)
[2020-04-15] MEDS: Montelukast 10 MG Tablet PO (08:46)
[2020-04-15] MEDS: Enoxaparin 40 MG/0.4 ML Syringe SC ×2 (08:46→21:30)
[2020-04-15] MEDS: Sertraline 100 MG Tablet PO (08:46)
[2020-04-15] MEDS: 0.9% Saline Lock 10 ML Syringe IV ×4 (08:46→23:48)
[2020-04-15] MEDS: hydroCHLOROthiazide 25 MG Tablet PO (08:46)
--- NOTE | 2020-04-15 08:46 | NURSING ---
skin photo: right lower leg
[2020-04-15 08:55] VITALS: O2SAT 93
--- NOTE | 2020-04-15 10:00 | RAD_ITS ---
STUDY: X-RAY - RIGHT ANKLE REASON FOR EXAM: Cellulitis, infection/wound right foot and ankle. TECHNIQUE: 3 view(s) of the ankle. COMPARISON: Radiographs 02/18/2020. FINDINGS: There is a nondisplaced healing fracture of the medial malleolus. There is a small avulsion fracture of the lateral malleolus. Normal tibiotalar articulation and ankle mortise. There is a small avulsion fracture of the dorsal aspect of the distal talus. There is a healing nondisplaced fracture of the medial navicular, best evaluated on the foot radiographs. There is an os trigonum. The visualized subtalar, talonavicular, calcaneocuboid and tarsal articulations are normal. There is soft tissue swelling. RAD/Ankle min 3 Views IMPRESSION: Healing fracture of the medial malleolus and small avulsion fractures of the lateral malleolus and distal talus. Soft tissue swelling. No demonstrated active bone destruction. Electronically Signed: Celso Aleman MD at 13:31 EST Tel , Service support ,
[2020-04-15 11:11] LABS: Bedside Glucose 192 mg/dL (70-110)
--- NOTE | 2020-04-15 12:12 | CON.PCM_ITS ---
Problem List (1) Cellulitis of right lower extremity Status: Acute (2) Ulcer of right foot with fat layer exposed Status: Chronic (3) Claudication Status: Chronic (4) Edema, lower extremity Status: Chronic (5) Dislocation of ankle, right, open Status: Chronic Qualifiers: Encounter type: sequela Qualified Code(s): S93.04XS - Dislocation of right ankle joint, sequela; S91.001S - Unspecified open wound, right ankle, sequela Reason for Consult Date of Consultation: 04/15/20 Reason for Consultation: right foot ulcer and infection History of Present Illness: This 60-year-old female was seen bedside for right lower extremity chronic wound and infection. She had an ankle open dislocation on February 18, 2020 with additional proximal leg fracture. She had open reduction internal fixation performed at [facility] on February 19, [address] Aleman. Her open fracture wound site is on her foot and it has remained open the entire time. She has been applying Neosporin and cleaning the wound with hydrogen peroxide. She presented for worsening redness swelling and pain to her ankle and leg and has been treated with IV antibiotics for her infection status. She denies recent injury. She is ultimately able to bear partial weight and is limping. She uses an assistive device. She denies current fever, chill, nausea, vomiting, shortness of breath, chest pain. Her legs are sensitive to touch and she relates her swelling has decreased since her time of admission. She relates leg cramping to the posterior and outer aspects of her leg that is irritated with walking short distances. She smokes about a pack a day for many years. She denies prior work-up for vascular disease. Past Medical History Past Medical History (Chronic Problems): Chronic Problems COPD (chronic obstructive pulmonary disease) (Chronic) Asthma (Chronic) Ulcer of right foot with fat layer exposed (Chronic) Claudication (Chronic) Edema, lower extremity (Chronic) Dislocation of ankle, right, open (Chronic) Obesity (Chronic) Hypertension (Chronic) Hyperlipidemia (Chronic) History of hypertension (Chronic) Allergies isoniazid Allergy (Verified 04/14/20 18:40) Other chemically induced hepatitis Home Medications: Ambulatory Orders Medication Instructions Recorded Budesonide/Formoterol 160/4.5 2 puff INHALATION BID 04/14/20 [Symbicort 160/4.5 Mcg Inhaler (SP)] Ferrous Sulfate 325 mg PO DAILY 04/14/20 Folic Acid/Vit B Complex and C 0.8 mg PO DAILY 04/14/20 [Renal-Salty Tablet] Hydrochlorothiazide [Hctz] 25 mg PO DAILY 04/14/20 Lactobacillus Acidophilus 1 ea PO DAILY 04/14/20 [Probiotic] Losartan Potassium [Cozaar] 50 mg PO DAILY 04/14/20 Metformin HCl 1,000 mg PO BID 04/14/20 Montelukast [Singulair] 10 mg PO DAILY 04/14/20 Multivitamin 1 tab PO DAILY 04/14/20 Omeprazole [Prilosec] 20 mg PO DAILY 04/14/20 Sertraline HCl [Zoloft] 100 mg PO DAILY 04/14/20 Ubidecarenone/Vit E Acet [Co Q-10 1 cap PO DAILY 04/14/20 100 mg Softgel] Surgical History: cholecystectomy, hysterectomy, - - she has hhad hihtystect apoy and cholecystectomy. Open reduction internal fixation right leg fracture Psychiatric History: Anxiety PROCESS EXPERT History: No pertinent PROCESS EXPERT history Smoking Status: Current every day smoker Tobacco Use: Cigarettes - *Family History Maternal History Items: Diabetes, Dementia, Heart Disease Paternal History Items: Cancer Review of Systems Constitutional: Reports: Weakness. Denies: Chills, Fever Cardiovascular: Reports: Claudication. Denies: Chest Pain Respiratory: Denies: Cough, Pleuritic Pain Gastrointestinal: Denies: Nausea, Vomiting Skin: Reports: Skin Changes, Wounds Neurological: Reports: Incoordination. Denies: Numbness Psychiatric: Denies: Anxiety Hematologic/ Lymphatic: Denies: Easy Bruising, Easy Bleeding Patient Problems: Active and Suspected Problems Cellulitis (Acute) Cellulitis of right lower extremity (Acute) - Physical Exam Vitals/I&O's: Vital Signs Temp Pulse Resp BP Pulse Ox 98.3 F 83 18 136/62 H 96 04/15/20 08:37 04/15/20 08:37 04/15/20 08:37 04/15/20 08:37 04/15/20 08:37 Oxygen Delivery Method Room Air Weight: 105.7 kg Body Mass Index (BMI) 41.3 Intake and Output for Last 24 Hours 04/13/20 04/14/20 04/15/20 23:59 23:59 23:59 Intake Total 412 / 412 1416 / 1416 Output Total 750 / 750 Balance 412 / 412 666 / 666 General: Alert, Oriented x3, Cooperative HEENT: Atraumatic Extremities: No cyanosis, Capillary Refill Less than 3 Seconds, No Calf Tenderness - Negative distinct Lindsay sign bilateral lower extremities, Diminished Peripheral Pulses - Weak dorsalis pedis pulse bilateral. Nonpalpable PT pulse bilateral. Bilateral lower extremity edema is noted with some formation of wrinkles suggesting some reduction in swelling., Edema, Tenderness - Pain to palpate ankle syndesmosis and distal fibula and periulcer site right lower extremity. Compartments remain soft to palpate bilateral lower extremities, - - 4-5 ankle muscle strength in all directions right compared to 5 out of 5 strength left. Her ankle joint is smooth and gliding in the sagittal plane with limited range of motion noted. Skin: Ulcer/ Wound - Skin discontinuity lateral hindfoot is fibrous with a remaining nylon suture in place that was removed. Predebridement measures 0.5 x 1.7 x 0.1 cm and post debridement 0.6 x 1.8 x 0.1 cm. There is no purulence or odor on expression. There is no distinct adjacent erythema or bogginess / fluctuance, - - She does have erythema to her hindfoot that extends onto the anterior lower leg that is diffuse Musculoskeletal: Muscle Wasting Lymphatic: - - As noted Neurological: Sensory exam intact to light touch and pain Psych/Mental Status: Normal Affect, Appropriate Laboratory Results 04/14/20 19:28: WBC 9.1, RBC 4.73, Hgb 12.4, Hct 39.1, MCV 82.7, MCH 26.2 L, MCHC 31.7 L, RDW Std Deviation 50.4 H, RDW Coeff of Christina 16.6 H, Plt Count 352, MPV 9.7, Immature Gran % (Auto) 0.300, Neut % (Auto) 66.1, Lymph % (Auto) 23.6, [place] % (Auto) 6.5, Eos % (Auto) 2.9, Baso % (Auto) 0.6, Absolute Neuts (auto) 6.0, Absolute Lymphs (auto) 2.14, Nucleated RBC % 0 04/14/20 19:28: Sodium 136, Potassium 3.8, Chloride 101, Carbon Dioxide 31.0, Anion Gap 4 L, BUN 20 H, Creatinine 0.83, Estim Creat Clear Calc 58.13, Est GFR (MDRD) Af Amer 89, Est GFR (MDRD) Non-Af 74, BUN/Creatinine Ratio 24.0 H, Glucose 169 H, Calcium 9.5 04/14/20 19:28: Lactic Acid 2.2 H* 04/14/20 22:40: POC Glucose 135 H 04/14/20 23:45: Lactic Acid 1.1 04/15/20 06:16: Sodium 139, Potassium 3.9, Chloride 106, Carbon Dioxide 31.0, Anion Gap 2 L, BUN 14, Creatinine 0.63, Estim Creat Clear Calc 76.59, Est GFR (MDRD) Af Amer 122, Est GFR (MDRD) Non-Af 101, BUN/Creatinine Ratio 22.1 H, Glucose 143 H, Calcium 9.5 04/15/20 06:16: WBC 7.8, RBC 4.69, Hgb 11.9 L, Hct 38.5, MCV 82.1, MCH 25.4 L, MCHC 30.9 L, RDW Std Deviation 50.1 H, RDW Coeff of Christina 16.6 H, Plt Count 300, MPV 9.7, Immature Gran % (Auto) 0.400, Neut % (Auto) 63.4, Lymph % (Auto) 24.3, [place] % (Auto) 7.7, Eos % (Auto) 3.6, Baso % (Auto) 0.6, Absolute Neuts (auto) 5.0, Absolute Lymphs (auto) 1.90, Nucleated RBC % 0 04/15/20 06:39: POC Glucose 169 H 04/15/20 11:08: POC Glucose 192 H Current Medications Acetaminophen (Acetaminophen 325 Mg Tablet) 650 mg PO Q6H PRN PRN PRN Reason: Pain Score 1-10/Temp > 100.7 F Last Admin: 04/15/20 10:14 Dose: 650 mg Documented by: Dextrose (Dextrose 50%-Water 25 Gm/50 Ml Disp.Syrin) 0 gm IV X1 PRN; Protocol PRN Reason: Hypoglycemia Enoxaparin Sodium (Enoxaparin 40 Mg/0.4 Ml Syringe) 40 mg SC BID LAURA Last Admin: 04/15/20 08:46 Dose: 40 mg Documented by: Glucagon (Glucagon 1 Mg/Ml Syringe) 1 mg IM .X1 PRN PRN Reason: Hypoglycemia Hydrochlorothiazide (Hydrochlorothiazide 25 Mg Tablet) 25 mg PO DAILY [facility] Last Admin: 04/15/20 08:46 Dose: 25 mg Documented by: Ampicillin Sodium/Sulbactam (Sodium 3 gm/ Sodium Chloride) 112 mls @ 150 mls/hr IV Q6 [facility] Last Infusion: 04/15/20 11:56 Dose: Infused Documented by: Sodium Chloride () 250 mls @ 15 mls/hr IV .[id number] PRN PRN Reason: Saline Flush Sodium Chloride () 250 mls @ 15 mls/hr IV .[id number] PRN PRN Reason: Additional IVPB Infusion Insulin Human Lispro (Insulin Lispro 100 Unit/Ml Insuln.Pen) 0 unit SC ACHS [facility]; Protocol Last Admin: 04/15/20 11:10 Dose: 1 u Documented by: Losartan Potassium (Losartan Potassium 50 Mg Tablet) 50 mg PO DAILY [facility] Last Admin: 04/15/20 08:46 Dose: 50 mg Documented by: Melatonin (Melatonin 3 Mg Tablet) 3 mg PO QHS PRN PRN PRN Reason: INSOMNIA Montelukast Sodium (Montelukast 10 Mg Tablet) 10 mg PO DAILY [facility] Last Admin: 04/15/20 08:46 Dose: 10 mg Documented by: Ondansetron HCl (Ondansetron 4 Mg/2 Ml Vial) 4 mg IV Q8H PRN PRN PRN Reason: NAUSEA/VOMITING Senna/Docusate Sodium (Senna/Docusate Sodium 1 Tablet) 2 tablet PO BID PRN PRN PRN Reason: Constipation Sertraline HCl (Sertraline 100 Mg Tablet) 100 mg PO DAILY [facility] Last Admin: 04/15/20 08:46 Dose: 100 mg Documented by: Sodium Chloride (0.9% Saline Lock 10 Ml Syringe) 10 - 40 ml IV UD PRN PRN Reason: SALINE FLUSH Last Admin: 04/15/20 11:11 Dose: 10 ml Documented by: Assessment/Plan All Active Problems Cellulitis (Acute) Cellulitis of right lower extremity (Acute) Right foot ulcer with fat layer exposed (fibrous) Cellulitis right lower extremity Sepsis Prior history of ankle open dislocation and leg fracture (s/p ORIF Dr. Aleman 02/18/21 at [facility], right Delayed healing Lower extremity edema Claudication; work-up for peripheral vascular disease I reviewed and discussed her case. She is afebrile and her vital signs are stable. She does not have leukocytosis: White blood cell count 7.8. Is noted she had a elevated lactic acid of 2.2 on admission which has since stabilized. Bilateral duplex Dopplers were reviewed and these were negative for deep venous thrombosis. Her right ankle and foot x-rays were reviewed without acute fracture or dislocation. There is also no soft tissue emphysema or osseous destruction or irregularities adjacent to her ulcer site to the lateral hindfoot. There is no evidence of foreign body. The ankle mortise appears well aligned in a rectus position with normal overlap of the fibula and tibia. There is no medial gutter widening. There does appear to be an ossific body distal to the distal fibula which is consistent with a prior avulsion fracture or calcification. The final radiology report is also pending. She was advised to limit weightbearing activity and to only bear weight as tolerated with an assistive device in a supportive shoe. I offered her additional custom bracing in the outpatient setting. The status of her ulcer was also reviewed. I discussed the etiology of her presentation and the essential components of wound healing. I would like to keep this ulcer moist with daily collagenase dressing changes to aid in fibrous tissue reduction and promote granulation tissue formation. The ulcer was debrided in a subcutaneous excisional manner with a 15 blade scalpel after verbal consent was obtained. Very scant hematogenous drainage was noted. The debridement was used to perform fibrous tissue, devitalized subcutaneous tissue, biofilm, and slough. Pressure was applied to maintain hemostasis and she tolerated this well. A dry dressing was applied. After the debridement was performed, a post debridement wound culture was obtained and sent to microbiology for aerobic, anaerobic, and MRSA PCR. She is on Unasyn at this time and appears to be responding well. To continue. I do not recommend lower extremity surgery at this time. I am concerned of her delays in ulcer healing, smoking status, and limb pain noted with walking. I recommend a noninvasive arterial screening test and this was ordered. To gently elevate the legs hourly while awake. If tolerated is also okay if she wears Star wraps to help with edema management. Thank you for the consultation. I will continue to follow her closely while in house. Medical management DVT prophylaxis per hospitalist is noted. Please not hesitate to call if you have any questions. GOMEZ Meza, [facility] [phone]
--- NOTE | 2020-04-15 12:29 | ART_ITS ---
Reason For Study: claudication, ulcer, delayed healing Procedure A bilateral lower extremity continuous wave Doppler with analog waveform analysis,segmental pressures,and ankle brachial indexes without exercise. Left Segmental Pressures Left posterior tibial artery = 177mmHg. Left dorsalis pedis artery = 172mmHg. Left digit = 130 mmHg. The left dorsalis pedis waveforms are triphasic. The left posterior tibial artery waveforms are triphasic. Right Segmental Pressures Right brachial= 153mmHg. Right thigh = 203mmHg. Right calf = 164mmHg. Right posterior tibial artery = 144mmHg. Right dorsalis pedis artery = 147mmHg. Right digit = 119 mmHg. The right dorsalis pedis waveforms are triphasic. The right posterior tibial artery waveforms are triphasic. Indices The right ankle brachial index by the dorsalis pedis is .96. The right ankle brachial index by the posterior tibial artery is .94. The right digital-brachial index is .78. The left ankle brachial index by the posterior tibial artery is 1.16. The left ankle brachial index by the dorsalis pedis is 1.12. The left digital-brachial index is .85. Interpretation Summary Triphasic Doppler waveforms are noted at ankle level bilaterally. Pulse-volume recordings appear satisfactory at all levels bilaterally. Resting ankle-brachial indices are normal bilaterally. Digital-brachial indices are normal bilaterally. There is no evidence of significant arterial occlusive disease in the lower extremities bilaterally. Ordering Physician: Emy Perez Performed By: MARY SUTTON RVEdwar
--- NOTE | 2020-04-15 13:20 | CASEMGMT ---
Addendum entered by Amy Elizabeth 04/15/20 18:31: 1500: Spoke w/Kimber @ [facility]. She was made aware pt has been admitted to [facility]. Pt active with them w/ SN, PT/OT. Resumption order for HHC placed and H/P faxed to [facility] at this time. Original Note: RN CRISTOBAL DIRECT RESPONSE CONSULTANT CM to room to meet with patient for initial transition planning/care coordination assessment. BENNY JAIN introduced self and role at [facility]. Pt voices understanding and consents to assessment at this time. Pt resting in bed in no distress at this time. Pt is A/O at this time and answers all questions appropriately. Care providers, pharmacy, and demographics verified/updated at this time. PCP: Noa Whitaker Specialists: Dr Aleman--ortho in [facility] Pharmacy:[facility] Insurance: [employer] Prescription Benefit: Yes Living Will/HPOA: Pt does not currently have LW/HCPOA and declines info at this time. LNOK: 3 Adult children. Daughter, Lillian, listed as emergency contact Living Arrangements: Son lives w/pt in a one-story home w/basement. Ramp entrance. Son works during the day but able to assist pt when home. Other family members able to help also [facility]: [facility] or daughter/family DME: States has the following DME: shower chair, BSC, hand held shower, walker, W/C, glucometer, supportive boot. Pt states no need for further DME at this time. HHC/SNF: No hx of SNF. Active w/[facility]. Pt wishes to return home w/[facility] and states has no concerns with going home at time of discharge. Daughter, Lillian, comes daily and can help with any dressing changes. CM to follow for any further discharge planning/needs. Pt voices no further concerns/needs at this time. Advised pt to ask for CM if any further questions/concerns/needs arise. Voices understanding. PLAN: Home w/Resumption of [facility], family support, and discharge plans in place. Colby AGUIRRE RN, CM
[2020-04-15 14:25] VITALS: BP 144/71; PULSE 83; RESP 18; TEMP 36.8; O2SAT 94
[2020-04-15 15:39] LABS: M R Staph aureus DNA By PCR Negative (Negative); Probe Check PASS; Specimen Processing Control PASS; Staph aureus DNA By PCR NEGATIVE (Negative)
[2020-04-15 16:26] LABS: Bedside Glucose 186 mg/dL (70-110)
[2020-04-15] MEDS: Collagenase 30gm Tube 1 APPLIC TOPICAL (16:49)
[2020-04-15 19:52] VITALS: BP 156/76; PULSE 88; RESP 18; TEMP 36.7; O2SAT 93
[2020-04-15] MEDS: MELATONIN 3 MG TABLET PO (21:40)
[2020-04-15 21:46] LABS: Bedside Glucose 160 mg/dL (70-110)
[2020-04-16 02:10] VITALS: BP 168/80; PULSE 99; RESP 18; TEMP 36.8; O2SAT 92
[2020-04-16 05:23] VITALS: PULSE 97
[2020-04-16] MEDS: hydrALAZINE 20 MG/ML Vial 5 MG IV (05:23)
[2020-04-16] MEDS: Insulin Lispro 100 UNIT/ML INSULN.PEN SC ×3 (06:26→21:51)
[2020-04-16] MEDS: Acetaminophen 325 MG Tablet 650 MG PO ×2 (06:36→22:07)
[2020-04-16 06:40] LABS: Bedside Glucose 165 mg/dL (70-110)
--- NOTE | 2020-04-16 07:22 | PN_ITS ---
Patient Problems: Active and Suspected Problems Cellulitis (Acute) Cellulitis of right lower extremity (Acute) Subjective: This 60-year-old female was seen bedside for right lower extremity chronic wound and cellulitis. She relates decreased pain. She denies fever, chills, nausea, vomiting. - Physical Exam Vitals/I&O's: Vital Signs Temp Pulse Resp BP Pulse Ox 98.3 F 97 18 168/80 H 92 04/16/20 02:10 04/16/20 05:23 04/16/20 02:10 04/16/20 02:10 04/16/20 02:10 Oxygen Delivery Method Room Air Weight: 105.7 kg Body Mass Index (BMI) 41.3 Intake and Output for Last 24 Hours 04/14/20 04/15/20 04/16/20 23:59 23:59 23:59 Intake Total 412 / 412 2278 / 2278 224 / 224 Output Total 1550 / 1550 Balance 412 / 412 728 / 728 224 / 224 General: Alert, Oriented x3, Cooperative Extremities: No cyanosis, Capillary Refill Less than 3 Seconds, No Calf Tenderness, Diminished Peripheral Pulses, Edema - decreased Skin: Ulcer/ Wound - no purulence, no erythema adjacent to ulcer, no odor, no necrosis, no deep tissue exposure. adjacent skin is hairless and atrophic Musculoskeletal: Muscle Wasting, - - discomfort with ulcer manipulation. compartments of right lower extremity remain soft Neurological: Sensory exam intact to light touch and pain Psych/Mental Status: Normal Affect, Appropriate Microbiology Past 72 Hours 04/15/20 13:00 Wound - Right Foot Gram Stain - Final Laboratory Results 04/15/20 11:08: POC Glucose 192 H 04/15/20 13:00: S.aureus Protein A PCR NEGATIVE, MRSA (PCR) Negative 04/15/20 16:08: POC Glucose 186 H 04/15/20 21:34: POC Glucose 160 H 04/16/20 06:25: POC Glucose 165 H Current Medications Acetaminophen (Acetaminophen 325 Mg Tablet) 650 mg PO Q6H PRN PRN PRN Reason: Pain Score 1-10/Temp > 100.7 F Last Admin: 04/16/20 06:36 Dose: 650 mg Documented by: Collagenase (Collagenase 30gm Tube) 1 applic TOPICAL DAILY [facility]; Protocol Last Admin: 04/15/20 16:49 Dose: 1 applicatio Documented by: Dextrose (Dextrose 50%-Water 25 Gm/50 Ml Disp.Syrin) 0 gm IV X1 PRN; Protocol PRN Reason: Hypoglycemia Enoxaparin Sodium (Enoxaparin 40 Mg/0.4 Ml Syringe) 40 mg SC BID [facility] Last Admin: 04/15/20 21:30 Dose: 40 mg Documented by: Glucagon (Glucagon 1 Mg/Ml Syringe) 1 mg IM .X1 PRN PRN Reason: Hypoglycemia Hydralazine HCl (Hydralazine 20 Mg/Ml Vial) 5 mg IV Q4H PRN PRN PRN Reason: BLOOD PRESSURE Last Admin: 04/16/20 05:23 Dose: 5 mg Documented by: Hydrochlorothiazide (Hydrochlorothiazide 25 Mg Tablet) 25 mg PO DAILY [facility] Last Admin: 04/15/20 08:46 Dose: 25 mg Documented by: Ampicillin Sodium/Sulbactam (Sodium 3 gm/ Sodium Chloride) 112 mls @ 150 mls/hr IV Q6 [facility] Last Infusion: 04/16/20 06:03 Dose: Infused Documented by: Sodium Chloride () 250 mls @ 15 mls/hr IV .[id number] PRN PRN Reason: Saline Flush Sodium Chloride () 250 mls @ 15 mls/hr IV .[id number] PRN PRN Reason: Additional IVPB Infusion Insulin Human Lispro (Insulin Lispro 100 Unit/Ml Insuln.Pen) 0 unit SC ACHS [facility]; Protocol Last Admin: 04/16/20 06:26 Dose: 1 u Documented by: Losartan Potassium (Losartan Potassium 50 Mg Tablet) 50 mg PO DAILY [facility] Last Admin: 04/15/20 08:46 Dose: 50 mg Documented by: Melatonin (Melatonin 3 Mg Tablet) 3 mg PO QHS PRN PRN PRN Reason: INSOMNIA Last Admin: 04/15/20 21:40 Dose: 3 mg Documented by: Montelukast Sodium (Montelukast 10 Mg Tablet) 10 mg PO DAILY [facility] Last Admin: 04/15/20 08:46 Dose: 10 mg Documented by: Ondansetron HCl (Ondansetron 4 Mg/2 Ml Vial) 4 mg IV Q8H PRN PRN PRN Reason: NAUSEA/VOMITING Senna/Docusate Sodium (Senna/Docusate Sodium 1 Tablet) 2 tablet PO BID PRN PRN PRN Reason: Constipation Sertraline HCl (Sertraline 100 Mg Tablet) 100 mg PO DAILY [facility] Last Admin: 04/15/20 08:46 Dose: 100 mg Documented by: Sodium Chloride (0.9% Saline Lock 10 Ml Syringe) 10 - 40 ml IV UD PRN PRN Reason: SALINE FLUSH Last Admin: 04/15/20 23:48 Dose: 10 ml Documented by: Medical Necessity - Tobacco Use Smoking Status: Current every day smoker Tobacco Use: Cigarettes Assessment/Plan All Active Problems Cellulitis (Acute) Cellulitis of right lower extremity (Acute) Right foot ulcer with fat layer exposed (fibrous) Cellulitis right lower extremity improving Sepsis Prior history of ankle open dislocation and leg fracture (s/p ORIF Dr. Aleman 02/18/21 at [facility], right Delayed healing Lower extremity edema I reviewed and discussed her case. She is afebrile and her vital signs are stable. Ulcer looks stable today without purulence. Santyl applied; to change daily. To continue JONE wrap and elevation to help reduce edema. Cellulitis is improving. She continues on IV unasyn. Blood cultures and wound cultures are negative for growth so far and the final result is pending. MRSA PCR was negative. Noninvasive arterial screening test was reviewed with triphasic waveforms and normal segmental pressures. I do not suspect an occlusion. final report is pending. She was advised to d/c smoking. Medical management DVT prophylaxis per hospitalist is noted. After discharge, she can follow up at [facility] for her ulcer, cell ulitis check, and potential bracing consideration. She was also advised to follow up with her surgeon at [facility] for continued post operative care. Please not hesitate to call if you have any questions. Emy Perez, GOMEZ, FACFAS [facility] [phone]
[2020-04-16 08:00] VITALS: BP 142/70; PULSE 92; RESP 18; TEMP 36.6; O2SAT 93
[2020-04-16] MEDS: Enoxaparin 40 MG/0.4 ML Syringe SC ×2 (08:16→21:51)
[2020-04-16] MEDS: Montelukast 10 MG Tablet PO (08:16)
[2020-04-16] MEDS: Losartan Potassium 50 MG Tablet PO (08:16)
[2020-04-16] MEDS: hydroCHLOROthiazide 25 MG Tablet PO (08:16)
[2020-04-16] MEDS: Collagenase 30gm Tube 1 APPLIC TOPICAL (08:17)
[2020-04-16] MEDS: Sertraline 100 MG Tablet PO (08:17)
--- NOTE | 2020-04-16 08:44 | PCM.PN.HOSP ---
Patient Problems: Active and Suspected Problems Cellulitis (Acute) Cellulitis of right lower extremity (Acute) Reason for Visit: Right lower extremity cellulitis Subjective: Patient is a 60-year-old female admitted with redness involving the right leg and assessment of cellulitis made admitted to regular nursing floor for further management 04/16/2020; patient did complain of itching involving both upper and lower extremities. On Unasyn discontinued started on Rocephin. Was also seen in consultation by podiatry note and recommendations reviewed. Objective: GENERAL: cooperative HEENT: Atraumatic; EYES; Anicteric, Normal Conjunctiva NECK; supple, normal thyroid, RESPIRATORY: Diminished to auscultation CARDIOVASCULAR: Regular S1 S2, GI: soft, normoactive bowel sounds, : No Renal angle tenderness; EXTREMITIES: Area of erythema involving the distal half of the right lower extremity MUSCULOSKELETAL: no muscle waisting NEURO: Awake; no lateralizing signs. SKIN: As described above PSYCH; Flat affect Vitals/I&O's: Vital Signs Temp Pulse Resp BP Pulse Ox 98.3 F 97 18 168/80 H 92 04/16/20 02:10 04/16/20 05:23 04/16/20 02:10 04/16/20 02:10 04/16/20 02:10 Oxygen Delivery Method Room Air Weight: 105.7 kg Body Mass Index (BMI) 41.3 Intake and Output for Last 24 Hours 04/14/20 04/15/20 04/16/20 23:59 23:59 23:59 Intake Total 412 / 412 2278 / 2278 224 / 224 Output Total 1550 / 1550 Balance 412 / 412 728 / 728 224 / 224 Microbiology Past 72 Hours 04/15/20 13:00 Wound - Right Foot Gram Stain - Final Laboratory Results 04/15/20 11:08: POC Glucose 192 H 04/15/20 13:00: S.aureus Protein A PCR NEGATIVE, MRSA (PCR) Negative 04/15/20 16:08: POC Glucose 186 H 04/15/20 21:34: POC Glucose 160 H 04/16/20 06:25: POC Glucose 165 H Current Medications Acetaminophen (Acetaminophen 325 Mg Tablet) 650 mg PO Q6H PRN PRN PRN Reason: Pain Score 1-10/Temp > 100.7 F Last Admin: 04/16/20 06:36 Dose: 650 mg Documented by: Collagenase (Collagenase 30gm Tube) 1 applic TOPICAL DAILY [facility]; Protocol Last Admin: 04/16/20 08:17 Dose: 1 applicatio Documented by: Dextrose (Dextrose 50%-Water 25 Gm/50 Ml Disp.Syrin) 0 gm IV X1 PRN; Protocol PRN Reason: Hypoglycemia Enoxaparin Sodium (Enoxaparin 40 Mg/0.4 Ml Syringe) 40 mg SC BID [facility] Last Admin: 04/16/20 08:16 Dose: 40 mg Documented by: Glucagon (Glucagon 1 Mg/Ml Syringe) 1 mg IM .X1 PRN PRN Reason: Hypoglycemia Hydralazine HCl (Hydralazine 20 Mg/Ml Vial) 5 mg IV Q4H PRN PRN PRN Reason: BLOOD PRESSURE Last Admin: 04/16/20 05:23 Dose: 5 mg Documented by: Hydrochlorothiazide (Hydrochlorothiazide 25 Mg Tablet) 25 mg PO DAILY [facility] Last Admin: 04/16/20 08:16 Dose: 25 mg Documented by: Ampicillin Sodium/Sulbactam (Sodium 3 gm/ Sodium Chloride) 112 mls @ 150 mls/hr IV Q6 [facility] Last Infusion: 04/16/20 06:03 Dose: Infused Documented by: Sodium Chloride () 250 mls @ 15 mls/hr IV .[id number] PRN PRN Reason: Saline Flush Sodium Chloride () 250 mls @ 15 mls/hr IV .[id number] PRN PRN Reason: Additional IVPB Infusion Insulin Human Lispro (Insulin Lispro 100 Unit/Ml Insuln.Pen) 0 unit SC ACHS [facility]; Protocol Last Admin: 04/16/20 06:26 Dose: 1 u Documented by: Losartan Potassium (Losartan Potassium 50 Mg Tablet) 50 mg PO DAILY [facility] Last Admin: 04/16/20 08:16 Dose: 50 mg Documented by: Melatonin (Melatonin 3 Mg Tablet) 3 mg PO QHS PRN PRN PRN Reason: INSOMNIA Last Admin: 04/15/20 21:40 Dose: 3 mg Documented by: Montelukast Sodium (Montelukast 10 Mg Tablet) 10 mg PO DAILY [facility] Last Admin: 04/16/20 08:16 Dose: 10 mg Documented by: Ondansetron HCl (Ondansetron 4 Mg/2 Ml Vial) 4 mg IV Q8H PRN PRN PRN Reason: NAUSEA/VOMITING Senna/Docusate Sodium (Senna/Docusate Sodium 1 Tablet) 2 tablet PO BID PRN PRN PRN Reason: Constipation Sertraline HCl (Sertraline 100 Mg Tablet) 100 mg PO DAILY [facility] Last Admin: 04/16/20 08:17 Dose: 100 mg Documented by: Sodium Chloride (0.9% Saline Lock 10 Ml Syringe) 10 - 40 ml IV UD PRN PRN Reason: SALINE FLUSH Last Admin: 04/15/20 23:48 Dose: 10 ml Documented by: STROKE Vital Signs/Narrative: Vital Signs Pulse 04/16/20 05:23 97 Medical Necessity - Tobacco Use Smoking Status: Current every day smoker Tobacco Use: Cigarettes Assessment/Plan All Active Problems Cellulitis (Acute) Cellulitis of right lower extremity (Acute) Patient is a 60-year-old female admitted with redness involving the right leg and assessment of cellulitis made admitted to regular nursing floor for further management 1. Severe sepsis secondary to cellulitis involving the right lower extremity -Admitted to regular nursing floor started on Unasyn - 04/16/2020; patient did complain of itching involving both upper and lower extremities. On Unasyn discontinued started on Rocephin. Was also seen in consultation by podiatry note and recommendations reviewed. 2. Hypertension - Blood pressure controlled, home medications continued with dose adjustment as needed 3. Diabetes mellitus type II -patient's oral hypoglycemics held. -Placed on long acting insulin, Accu-Cheks a.c. and at bedtime and covered with sliding scale insulin 4. Overlap syndrome?asthma and COPD ?Did continue patient on bronchodilator treatment from home 5. Depression with anxiety ?On SSRI did continue 6. Obesity with BMI of 43.0 ?Weight loss advised 7. Tobacco dependence - Counseled on cessation, offered nicotine patch for tobacco cravings 8. DVT prophylaxis ?Lovenox Inpatient E&M: 58513 Subs Hosp L2
[2020-04-16] MEDS: DiphenhydrAMINE 25 MG Capsule PO ×2 (11:47→22:07)
[2020-04-16] MEDS: Ceftriaxone 1 GM/50 ML BAG IV (11:47)
[2020-04-16 12:01] LABS: Bedside Glucose 170 mg/dL (70-110)
[2020-04-16 14:13] VITALS: O2SAT 93
[2020-04-16 15:38] VITALS: BP 130/54; PULSE 88; RESP 16; TEMP 36.6; O2SAT 97
[2020-04-16 16:55] LABS: Bedside Glucose 128 mg/dL (70-110)
[2020-04-16 21:42] VITALS: BP 136/62; PULSE 85; RESP 18; TEMP 37.2; O2SAT 96
[2020-04-16 22:21] LABS: Bedside Glucose 179 mg/dL (70-110)
[2020-04-17 03:43] VITALS: BP 146/74; PULSE 99; RESP 18; TEMP 36.7; O2SAT 95
[2020-04-17] MEDS: Acetaminophen 325 MG Tablet 650 MG PO (04:12)
[2020-04-17] MEDS: Insulin Lispro 100 UNIT/ML INSULN.PEN SC ×2 (06:56→11:22)
[2020-04-17 07:04] LABS: Hematocrit 40.9 % (37-47); Hemoglobin 12.7 g/dL (12.0-15.0); Mean Corp Hgb Conc 31.1 g/dL (32-36); Mean Corpuscular Hgb 25.5 pg (27.0-32.0); Mean Platelet Vol. 9.6 fl (6.2-12.0); Platelet Count 326 K/mm3 (150-450); RBC Distribution Width CV 16.4 % (11.6-14.6); Red Blood Count 4.99 M/mm3 (4.2-5.4); White Blood Count 7.2 K/mm3 (4.4-11.0)
[2020-04-17 07:11] LABS: Bedside Glucose 160 mg/dL (70-110)
[2020-04-17 07:20] VITALS: O2SAT 93
[2020-04-17 07:33] LABS: Anion Gap 3 (5-15); BUN 15 mg/dL (7-18); Calcium,Total 9.9 mg/dL (8.5-10.1); Chloride 102 mmol/L (98-107); Creatinine, Serum 0.79 mg/dL (0.55-1.02); EST Glomerular Filtration Rate 78 mL/min (>60); Est Glom Filt Rate - Afr Amer 95 mL/min (>60); Estimated Creatinine Clearance 61.08 ml/min; Glucose 132 mg/dL (74-106); Magnesium 2.1 mg/dL (1.6-2.6); Potassium 4.3 mmol/L (3.5-5.1); Sodium Level 137 mmol/L (136-145)
--- NOTE | 2020-04-17 07:59 | DCINST_ITS ---
- Discharge Diagnoses Current Active Problems: Current Active and Chronic Problems COPD (chronic obstructive pulmonary disease) (Chronic) Asthma (Chronic) Cellulitis (Acute) Cellulitis of right lower extremity (Acute) Ulcer of right foot with fat layer exposed (Chronic) Claudication (Chronic) Edema, lower extremity (Chronic) Dislocation of ankle, right, open (Chronic) Obesity (Chronic) Hypertension (Chronic) Hyperlipidemia (Chronic) History of hypertension (Chronic) You will use the following diet at home:: No restrictions Allergies/Adverse Reactions: Allergies isoniazid Allergy (Verified 04/14/20 18:40) Other chemically induced hepatitis Medications to take at Discharge Budesonide/Formoterol 160/4.5 [Symbicort 160/4.5 Mcg Inhaler (SP)] 2 puff INHALATION BID 04/14/20 Ferrous Sulfate 325 mg PO DAILY 04/14/20 Folic Acid/Vit B Complex and C [Renal-Salty Tablet] 0.8 mg PO DAILY 04/14/20 Hydrochlorothiazide [Hctz] 25 mg PO DAILY 04/14/20 Lactobacillus Acidophilus [Probiotic] 1 ea PO DAILY 04/14/20 Losartan Potassium [Cozaar] 50 mg PO DAILY 04/14/20 Metformin HCl 1,000 mg PO BID 04/14/20 Montelukast [Singulair] 10 mg PO DAILY 04/14/20 Multivitamin 1 tab PO DAILY 04/14/20 Omeprazole [Prilosec] 20 mg PO DAILY 04/14/20 Sertraline HCl [Zoloft] 100 mg PO DAILY 04/14/20 Ubidecarenone/Vit E Acet [Co Q-10 100 mg Softgel] 1 cap PO DAILY 04/14/20 Cefdinir 300 mg PO BID #14 cap 04/17/20 The following prescriptions were given: Cefdinir 300 mg PO BID #14 cap Transmission Status: Received by [id number] - Please follow up with your Primary Care Physician in: in 1-2 weeks Test Results: Test results from this visit will be discussed in further detail at your follow- up appointment, if applicable. Please Follow Up With: Emy Perez DPM When: in 1-2 weeks Proposed Discharge Date: 04/17/20
--- NOTE | 2020-04-17 08:00 | PCM.DC.SUM ---
Discharge Date and Diagnosis - Problem List Patient Problems: Active and Suspected Problems Cellulitis (Acute) Cellulitis of right lower extremity (Acute) Date of Admission: 04/14/20 Date of Discharge: 04/17/20 - Primary Discharge Diagnosis Acute Problems: Active Problems Cellulitis (Acute) Cellulitis of right lower extremity (Acute) - Secondary Discharge Diagnosis Chronic Problems: Chronic Problems COPD (chronic obstructive pulmonary disease) (Chronic) Asthma (Chronic) Ulcer of right foot with fat layer exposed (Chronic) Claudication (Chronic) Edema, lower extremity (Chronic) Dislocation of ankle, right, open (Chronic) Obesity (Chronic) Hypertension (Chronic) Hyperlipidemia (Chronic) History of hypertension (Chronic) Hospital Course and Treatment Consultations 04/14/20 22:26 Consult: Onc/Wound/ornamental plaster sticker Routine Comment: R foot wound Operations: None Summary of Care Provided: Patient is a 60-year-old female admitted with redness involving the right leg and assessment of cellulitis made admitted to regular nursing floor for further management 1. Severe sepsis secondary to cellulitis involving the right lower extremity -Admitted to regular nursing floor started on Unasyn - 04/16/2020; patient did complain of itching involving both upper and lower extremities. On Unasyn discontinued started on Rocephin. Was also seen in consultation by podiatry note and recommendations reviewed. -04/17/2020; patient was discharged home on cefdinir for 7 more days with instructions of patient to follow-up with podiatry as outpatient 2. Hypertension - Blood pressure controlled, home medications continued with dose adjustment as needed 3. Diabetes mellitus type II -patient's oral hypoglycemics held. -Placed on long acting insulin, Accu-Cheks a.c. and at bedtime and covered with sliding scale insulin 4. Overlap syndrome?asthma and COPD ?Did continue patient on bronchodilator treatment from home 5. Depression with anxiety ?On SSRI did continue 6. Obesity with BMI of 43.0 ?Weight loss advised 7. Tobacco dependence - Counseled on cessation, offered nicotine patch for tobacco cravings 8. DVT prophylaxis ?Lovenox Patient Problems: Active and Suspected Problems Cellulitis (Acute) Cellulitis of right lower extremity (Acute) Objective: GENERAL: cooperative HEENT: Atraumatic; EYES; Anicteric, Normal Conjunctiva NECK; supple, normal thyroid, RESPIRATORY: Diminished to auscultation CARDIOVASCULAR: Regular S1 S2, GI: soft, normoactive bowel sounds, : No Renal angle tenderness; SKIN: As described above PSYCH; Flat affect - Physical Exam Vitals/I&O's: Vital Signs Temp Pulse Resp BP Pulse Ox 98.1 F 99 18 146/74 H 95 04/17/20 03:43 04/17/20 03:43 04/17/20 03:43 04/17/20 03:43 04/17/20 03:43 Oxygen Delivery Method Room Air Weight: 105.7 kg Body Mass Index (BMI) 41.3 Intake and Output for Last 24 Hours 04/15/20 04/16/20 04/17/20 23:59 23:59 23:59 Intake Total 2278 / 2278 924 / 924 Output Total 1550 / 1550 Balance 728 / 728 924 / 924 Microbiology Past 72 Hours 04/14/20 19:23 Blood Culture (Wb) - Left Hand Blood Culture - Preliminary No growth in 48 hours. 04/14/20 19:28 Blood Culture (Wb) - Anticubital Left Blood Culture - Preliminary No growth in 48 hours. 04/15/20 13:00 Wound - Right Foot Gram Stain - Final 04/15/20 13:00 Wound - Right Foot Wound Culture - Preliminary GNR Poss Pseudomonas sp 04/15/20 13:00 Wound - Right Foot Anaerobic Culture - Preliminary No growth in 48 hours. Laboratory Results 04/16/20 11:54: POC Glucose 170 H 04/16/20 16:48: POC Glucose 128 H 04/16/20 21:50: POC Glucose 179 H 04/17/20 06:47: WBC 7.2, RBC 4.99, Hgb 12.7, Hct 40.9, MCV 82.0, MCH 25.5 L, MCHC 31.1 L, RDW Std Deviation 49.0 H, RDW Coeff of Christina 16.4 H, Plt Count 326, MPV 9.6 04/17/20 06:54: Sodium 137, Potassium 4.3, Chloride 102, Carbon Dioxide 32.0, Anion Gap 3 L, BUN 15, Creatinine 0.79, Estim Creat Clear Calc 61.08, Est GFR (MDRD) Af Amer 95, Est GFR (MDRD) Non-Af 78, BUN/Creatinine Ratio 19.0, Glucose 132 H, Calcium 9.9, Magnesium 2.1 04/17/20 06:55: POC Glucose 160 H Current Medications Acetaminophen (Acetaminophen 325 Mg Tablet) 650 mg PO Q6H PRN PRN PRN Reason: Pain Score 1-10/Temp > 100.7 F Last Admin: 04/17/20 04:12 Dose: 650 mg Documented by: Collagenase (Collagenase 30gm Tube) 1 applic TOPICAL DAILY [facility]; Protocol Last Admin: 04/16/20 08:17 Dose: 1 applicatio Documented by: Dextrose (Dextrose 50%-Water 25 Gm/50 Ml Disp.Syrin) 0 gm IV X1 PRN; Protocol PRN Reason: Hypoglycemia Diphenhydramine HCl (Diphenhydramine 25 Mg Capsule) 25 mg PO TID PRN PRN PRN Reason: ITCHING Last Admin: 04/16/20 22:07 Dose: 25 mg Documented by: Enoxaparin Sodium (Enoxaparin 40 Mg/0.4 Ml Syringe) 40 mg SC BID [facility] Last Admin: 04/16/20 21:51 Dose: 40 mg Documented by: Glucagon (Glucagon 1 Mg/Ml Syringe) 1 mg IM .X1 PRN PRN Reason: Hypoglycemia Hydralazine HCl (Hydralazine 20 Mg/Ml Vial) 5 mg IV Q4H PRN PRN PRN Reason: BLOOD PRESSURE Last Admin: 04/16/20 05:23 Dose: 5 mg Documented by: Hydrochlorothiazide (Hydrochlorothiazide 25 Mg Tablet) 25 mg PO DAILY [facility] Last Admin: 04/16/20 08:16 Dose: 25 mg Documented by: Sodium Chloride () 250 mls @ 15 mls/hr IV .[id number] PRN PRN Reason: Saline Flush Sodium Chloride () 250 mls @ 15 mls/hr IV .[id number] PRN PRN Reason: Additional IVPB Infusion Ceftriaxone Sodium (Rocephin) 1 gm in 50 mls @ 100 mls/hr IV Q24 [facility] Insulin Human Lispro (Insulin Lispro 100 Unit/Ml Insuln.Pen) 0 unit SC ACHS [facility]; Protocol Last Admin: 04/17/20 06:56 Dose: 1 u Documented by: Losartan Potassium (Losartan Potassium 50 Mg Tablet) 50 mg PO DAILY [facility] Last Admin: 04/16/20 08:16 Dose: 50 mg Documented by: Melatonin (Melatonin 3 Mg Tablet) 3 mg PO QHS PRN PRN PRN Reason: INSOMNIA Last Admin: 04/15/20 21:40 Dose: 3 mg Documented by: Montelukast Sodium (Montelukast 10 Mg Tablet) 10 mg PO DAILY [facility] Last Admin: 04/16/20 08:16 Dose: 10 mg Documented by: Ondansetron HCl (Ondansetron 4 Mg/2 Ml Vial) 4 mg IV Q8H PRN PRN PRN Reason: NAUSEA/VOMITING Senna/Docusate Sodium (Senna/Docusate Sodium 1 Tablet) 2 tablet PO BID PRN PRN PRN Reason: Constipation Sertraline HCl (Sertraline 100 Mg Tablet) 100 mg PO DAILY [facility] Last Admin: 04/16/20 08:17 Dose: 100 mg Documented by: Sodium Chloride (0.9% Saline Lock 10 Ml Syringe) 10 - 40 ml IV UD PRN PRN Reason: SALINE FLUSH Last Admin: 04/15/20 23:48 Dose: 10 ml Documented by: Discharge Diet: No Restrictions Home Medications: Medications to take at Discharge Budesonide/Formoterol 160/4.5 [Symbicort 160/4.5 Mcg Inhaler (SP)] 2 puff INHALATION BID 04/14/20 Ferrous Sulfate 325 mg PO DAILY 04/14/20 Folic Acid/Vit B Complex and C [Renal-Salty Tablet] 0.8 mg PO DAILY 04/14/20 Hydrochlorothiazide [Hctz] 25 mg PO DAILY 04/14/20 Lactobacillus Acidophilus [Probiotic] 1 ea PO DAILY 04/14/20 Losartan Potassium [Cozaar] 50 mg PO DAILY 04/14/20 Metformin HCl 1,000 mg PO BID 04/14/20 Montelukast [Singulair] 10 mg PO DAILY 04/14/20 Multivitamin 1 tab PO DAILY 04/14/20 Omeprazole [Prilosec] 20 mg PO DAILY 04/14/20 Sertraline HCl [Zoloft] 100 mg PO DAILY 04/14/20 Ubidecarenone/Vit E Acet [Co Q-10 100 mg Softgel] 1 cap PO DAILY 04/14/20 Cefdinir 300 mg PO BID #14 cap 04/17/20 Following Prescriptions Were Given to Patient: Cefdinir 300 mg PO BID #14 cap Transmission Status: Received by [id number] - Please follow up with your Primary Care Physician in: in 1-2 weeks Please Follow Up With: Emy Perez DPM When: in 1-2 weeks Disposition: Home Minutes spent on discharge:: 35 Patient Condition:: Stable Medical Necessity - Tobacco Use Smoking Status: Current every day smoker Tobacco Use: Cigarettes Meaningful Use Info Meaningful Use Diagnoses (Choose all that apply): None applicable Inpatient E&M: 17129 Disch Hosp
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
--- NOTE | 2020-04-17 08:17 | DCINST_ITS ---
Discharge Activity: May Shower Weight Bearing Status: Weight bearing as tolerated Keep extremity elevated above heart level: Right Leg Call your doctor if your incision/area has: Continuous Slow Oozing, Sudden Increased Bleeding, Increased Pain/ Swelling, Increased Redness, Foul Smelling Discharge Call your doctor if you observe: Fever of 101 or Higher, Calf discomfort, Uncontrolled pain Cleanse incision/area with: Soap & Water - use antibacterial soap such as dial, - - do not soak lower extremity or wound Additional Dressing/Incision Instructions:: Change wound dressing daily with santyl applied nickel thickness to right foot wound. Cover with gauze. Wear watson wrap as tolerated. Apply lotion to lower leg and foot skin but not directly to the wound. Allergies/Adverse Reactions: Allergies isoniazid Allergy (Verified 04/14/20 18:40) Other chemically induced hepatitis Medications to take at Discharge Budesonide/Formoterol 160/4.5 [Symbicort 160/4.5 Mcg Inhaler (SP)] 2 puff INHALATION BID 04/14/20 Ferrous Sulfate 325 mg PO DAILY 04/14/20 Folic Acid/Vit B Complex and C [Renal-Salty Tablet] 0.8 mg PO DAILY 04/14/20 Hydrochlorothiazide [Hctz] 25 mg PO DAILY 04/14/20 Lactobacillus Acidophilus [Probiotic] 1 ea PO DAILY 04/14/20 Losartan Potassium [Cozaar] 50 mg PO DAILY 04/14/20 Metformin HCl 1,000 mg PO BID 04/14/20 Montelukast [Singulair] 10 mg PO DAILY 04/14/20 Multivitamin 1 tab PO DAILY 04/14/20 Omeprazole [Prilosec] 20 mg PO DAILY 04/14/20 Sertraline HCl [Zoloft] 100 mg PO DAILY 04/14/20 Ubidecarenone/Vit E Acet [Co Q-10 100 mg Softgel] 1 cap PO DAILY 04/14/20 Cefdinir 300 mg PO BID #14 cap 04/17/20 The following prescriptions were given: Cefdinir 300 mg PO BID #14 cap Transmission Status: Received by [id number] - Please follow up with your Primary Care Physician in: in 1-2 weeks Test Results: Test results from this visit will be discussed in further detail at your follow- up appointment, if applicable. Please Follow Up With: Emy Perez DPM When: in 1-2 weeks at [facility]. Call [phone] Proposed Discharge Date: 04/17/20
[2020-04-17 09:35] VITALS: BP 140/71; PULSE 91; RESP 18; TEMP 36.7; O2SAT 97
[2020-04-17] MEDS: Enoxaparin 40 MG/0.4 ML Syringe SC (09:38)
[2020-04-17] MEDS: Collagenase 30gm Tube 1 APPLIC TOPICAL (09:39)
[2020-04-17] MEDS: hydroCHLOROthiazide 25 MG Tablet PO (09:39)
[2020-04-17] MEDS: Sertraline 100 MG Tablet PO (09:39)
[2020-04-17] MEDS: Losartan Potassium 50 MG Tablet PO (09:39)
[2020-04-17] MEDS: Montelukast 10 MG Tablet PO (09:39)
[2020-04-17] MEDS: Ceftriaxone 1 GM/50 ML BAG IV (09:40)
[2020-04-17] MEDS: 0.9% Saline Lock 10 ML Syringe IV (09:40)
[2020-04-17] MEDS: DiphenhydrAMINE 25 MG Capsule PO (09:55)
[2020-04-17 11:31] LABS: Bedside Glucose 174 mg/dL (70-110)
--- NOTE | 2020-04-19 15:54 | CASEMGMT ---
BENNY JAIN Discharge Follow-up Phone Call: CHLOÉ: Richardson Strata: 3 Call Date: 04/19/20 Discharge Date: 04/17/20 Time of Call: 1555 Duration: 3 min Admitting Diagnosis: bilateral leg cellulitis BENNY JAIN completed follow-up phone call after recent hospitalization. Patient states she is doing well and had no questions or concerns regarding discharge instructions. Patient was able to fill prescriptions without any issues. Patient to call podiatry office to schedule appt. Patient had no further questions or concerns at this time.
== END 2020-04-17 12:28 | disposition home or self-care (01) | DRG 380 ==
LOC: ED 20:23 → MS3 21:17
PROVIDERS: Podiatrist; Admitting Provider Hospitalist; Emergency Provider Emergency Medicine; Visit Provider Internal Medicine
DX: E11.621 Type 2 diabetes mellitus with foot ulcer (principal); L03.116 Cellulitis of left lower limb; L03.115 Cellulitis of right lower limb; I10 Essential (primary) hypertension; E66.9 Obesity, unspecified; E78.5 Hyperlipidemia, unspecified; E11.65 Type 2 diabetes mellitus with hyperglycemia; Z68.41 Body mass index [BMI] 40.0-44.9, adult; F41.8 Other specified anxiety disorders; M35.1 Other overlap syndromes; L97.512 Non-pressure chronic ulcer of other part of right foot with fat layer exposed; F17.210 Nicotine dependence, cigarettes, uncomplicated; E11.51 Type 2 diabetes mellitus with diabetic peripheral angiopathy without gangrene; R65.20 Severe sepsis without septic shock; Z79.51 Long term (current) use of inhaled steroids; Z83.3 Family history of diabetes mellitus; Z90.710 Acquired absence of both cervix and uterus; E87.2 Acidosis; J44.9 Chronic obstructive pulmonary disease, unspecified
CPT/HCPCS: 36415; 73610; 73630; 80048; 82962; 83605; 83735; 85025; 85027; 87040; 87070; 87075; 87186; 87205; 87640; 93923; 93970; 99283; 99406; J7050; A4216; J0295

== ENCOUNTER → 2020-05-10 18:18 | Outpatient (CLI) | payer MEDICAID, SELFPAY ==
[2020-04-14 22:22] VITALS: BMI 41.3
[2020-05-10 20:00] LABS: M R Staph aureus DNA By PCR Negative (Negative); Probe Check PASS; Specimen Processing Control PASS; Staph aureus DNA By PCR NEGATIVE (Negative)
== END ==
PROVIDERS: Referring Provider Podiatrist; Visit Provider Podiatrist
DX: L97.512 Non-pressure chronic ulcer of other part of right foot with fat layer exposed (principal)
CPT/HCPCS: 87070; 87075; 87077; 87186; 87205; 87640

== ENCOUNTER 2020-06-10 14:53 | Outpatient (RCR) | payer MEDICAID, SELFPAY ==
[2020-06-10] MEDS: COVID-19 VACC, MRNA(PFIZER)/PF 30 MCG/0.3 ML SYRINGE IM (17:56)
[2020-07-01] MEDS: COVID-19 VACC, MRNA(PFIZER)/PF 30 MCG/0.3 ML SYRINGE IM (17:50)
== END 2020-09-07 23:59 ==
LOC: IMMUN 14:53
PROVIDERS: Referring Provider Family Medicine; Visit Provider Family Medicine
DX: Z23 Encounter for immunization (principal)
CPT/HCPCS: 0001A; 0002A; 91300

== ENCOUNTER 2020-07-14 15:00 | Outpatient (RCR) | payer MEDICAID, SELFPAY ==
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
== END 2020-07-14 19:00 | disposition home or self-care (01) ==
LOC: PT 15:00
DX: S82.141D Displaced bicondylar fracture of right tibia, subsequent encounter for closed fracture with routine healing (principal); S93.04XD Dislocation of right ankle joint, subsequent encounter
CPT/HCPCS: 97110; 97116; 97161; 97164; 97530

== ENCOUNTER → 2020-07-30 08:34 | Outpatient (CLI) | payer MEDICAID, SELFPAY ==
--- NOTE | 2020-07-30 08:35 | BI_ITS ---
MAMMOGRAPHY - BILATERAL SCREENING REASON FOR EXAM: Female, 60 years old. Routine annual screening examination. PERTINENT HISTORY: Grandmother with breast cancer. TECHNIQUE: Digital bilateral breast reyna (3D mammographic acquisition) in the CC and MLO projections. 2-D mediolateral oblique (MLO) and craniocaudad (CC) views of both breasts were obtained. CAD: Full Field Digital Mammography with Computer Added Detection was performed. COMPARISON: Comparison is made with prior study dated 03/06/2018. FINDINGS: Breast Composition: The breasts are almost entirely fatty. There are no dominant masses or suspicious calcifications. No other significant abnormalities are identified. There has been no significant change since the prior study. BI/SCRN MAMM (CAD)W/REYNA BILAT IMPRESSION: Stable bilateral screening mammogram. Yearly follow-up mammogram recommended. (A) ASSESSMENT CATEGORY: BIRADS Category 1: Negative. A letter regarding these results will be sent to the patient by the facility within 30 days. Approximately 10% of breast cancers are not detected by mammography. A normal mammogram should not delay biopsy of a clinically suspicious abnormality. [id number] Electronically Signed: Christopher Romeo MD at 10:04 EDT , Service support ,
== END ==
DX: Z12.31 Encounter for screening mammogram for malignant neoplasm of breast (principal)
CPT/HCPCS: 77063; 77067

== ENCOUNTER 2020-08-10 09:52 | Emergency (ER) | payer MEDICAID, SELFPAY ==
[2020-08-10 09:53] VITALS: BP 139/71; PULSE 78; RESP 18; TEMP 36.1; O2SAT 96; BMI 46.5
--- NOTE | 2020-08-10 10:08 | EDS_ITS ---
HPI History of Present Illness Chief Complaint: Dizziness Detail of Chief Complaint: Patient's description of dizziness is a spinning sensation with nausea Informant: patient Onset/Context/Timing Onset: Hours (08: 00) Context: Sudden Onset Timing: Intermittent Quality: Spinning sensation Location: Home Current Severity: Mild Maximum Severity: Severe Worsened by: Movement of head Relieved by: Remaining still and closing eyes Associated Symptoms Associated Symptoms: Nausea and fatigue Narrative Narrative: Patient is an elderly woman who presents with dizziness, which she defines as a spinning sensation with nausea. She had similar episode 10 years ago. She believes she had vertigo at that time. She states it lasted for hours. She felt fatigued at that time as well. She denies double vision or blurred vision. She denies ringing in her ears or decreased hearing. She denies headache. She denies neck pain. She denies paresthesia, anesthesia or medics. She denies cardiac or respiratory symptoms. Prior similar symptoms: Yes (10 years ago) Recent Illness/Hospitalization: No PFSH PFSH Medical History Depression Depression Diabetes Fracture, tibial plateau Hypertension MRSA (methicillin resistant staph aureus) culture positive Vertigo Home Medications B complex-vitamin C-folic acid 0.8 mg PO DAILY 04/14/20 [History Last Taken 04/14/20] Lactobacillus acidophilus 1 ea PO DAILY 04/14/20 [History Last Taken 04/14/20] budesonide-formoterol 2 puff INHALATION BID 04/14/20 [History Last Taken 04/14/20] coenzyme [id number] E 1 cap PO DAILY 04/14/20 [History Last Taken 04/14/20] ferrous sulfate 325 mg PO DAILY 04/14/20 [History Last Taken 04/14/20] hydrochlorothiazide 25 mg PO DAILY 04/14/20 [History Last Taken 04/14/20] losartan 50 mg PO DAILY 04/14/20 [History Last Taken 04/14/20] metformin 1,000 mg PO BID 04/14/20 [History Last Taken 04/14/20] montelukast 10 mg PO DAILY 04/14/20 [History Last Taken 04/14/20] multivitamin 1 tab PO DAILY 04/14/20 [History Last Taken 04/14/20] omeprazole 20 mg PO DAILY 04/14/20 [History Last Taken 04/13/20] sertraline 100 mg PO DAILY 04/14/20 [History Last Taken 04/14/20] cefdinir 300 mg PO BID #14 cap 04/17/20 [Rx Last Taken Unknown] Allergy/AdvReac Type Severity Reaction Status Date / Time isoniazid Allergy Other Verified 08/10/20 09:58 Surgical History H/O: hysterectomy Social History (Updated 08/10/20 @ 10:[address] Emory Hugo MD) household members: none current occupational exposures/hazards: No history of recent travel: No current gender identity: female Smoking Status: Current every day smoker alcohol intake: current alcohol intake frequency: holidays/special occasions only ROS ROS ED Constitutional Constitutional ED: Denies chills, fever(s), subjective or sweats Eyes Eyes: Denies blurry vision, change in vision or diplopia ENT ENT ED: Denies ear pain, rhinorrhea or sore throat Cardiovascular Cardiovascular: Denies chest pain or palpitations Respiratory/Chest Respiratory/Chest: Denies cough, dyspnea or dyspnea on exertion Gastrointestinal Gastrointestinal: Reports nausea; Denies abdominal pain, diarrhea or vomiting Musculoskeletal Musculoskeletal: Denies arthralgias, myalgias or neck pain Integumentary Denies rash Neurologic Neurologic: Denies headache(s), paresthesias or weakness Psychiatric Psychiatric: Reports depression Allergic/Immunologic Allergic/Immunologic ED: Denies urticaria EXAM Physical Exam Const Vital Signs: 08/10/20 09:53 Temperature 96.9 F L Temperature Source Temporal Pulse Rate 78 Respiratory Rate 18 Blood Pressure 139/71 H Blood Pressure Mean 93 Pulse Ox 96 Oxygen Delivery Method Room Air Positive well nourished, well developed and obese General Appearance ED: well developed and other Patient appears slightly pale. Nutritional Appearance: obese HEENT Reports moist mucous membranes Eyes PERRL and EOMs intact bilaterally Eyes Narrative: The left eye deviates outward status post surgery. General Eye ED: Negative for pale conjunctiva or scleral icterus Neck no lymphadenopathy, supple and no JVD Neck Narrative: There is no carotid bruit noted right or left. Chest Wall inspection of chest normal Resp normal respiratory effort and clear to auscultation bilaterally Cardio regular rate, regular rhythm, S1 normal heart sound, S2 normal heart sound and no murmurs Back/Spine no CVA tenderness Extremity normal to inspection Extremity Narrative: Well-healed prior surgical scars due to fractures noted. Neuro oriented x3, CN's II-XII intact bilaterally and no sensory deficits noted Neuro Narrative: No dysmetria. Motor Exam: strength 5/5 throughout Psych mental status grossly normal Psych Narrative: Affect is flat. Skin no rashes or lesions noted and no wounds MDM MDM MDM Narrative Medical decision making narrative: Since patient's symptoms are related to change in head position and occurs abruptly with head position findings are consistent with paroxysmal benign positional vertigo. The external auditory canal is normal. Heide-Hallpike maneuver was performed. Patient had significant symptoms with nystagmus noted with head was turned to the left. Josh maneuver was performed. Patient reported resolution of nausea and spinning prior to change in head position. Patient was reassessed at 1015. She states the nausea has completely resolved. She still has slight dizziness when she opens her eyes. This may represent labyrinthitis. Will treat with dose of prednisone. Treatment and Re-Evaluation Comments:: Patient was seen walking to the restroom at 1150. She is presently having no symptoms. Plan is to discharge to home with appropriate home-going instructions. Vital Sign Attestation:: Vital signs last reviewed at 1156 time of discharge Procedures Other Procedures Procedure(s): Josh maneuver. Total time for procedure 10 minutes. Discharge Plan Triage Chief Complaint: Dizziness ED Provider: Emory Hugo Dx/Rx/DC Orders Clinical Impression: Benign paroxysmal positional vertigo of left ear Instructions: ED BPV Vertigo Prescriptions: No Action losartan 50 MG tablet 50 mg PO DAILY RF: 0 sertraline 100 MG tablet 100 mg PO DAILY RF: 0 montelukast 10 MG tablet 10 mg PO DAILY RF: 0 B complex-vitamin C-folic acid 0.8 MG tablet 0.8 mg PO DAILY RF: 0 hydrochlorothiazide 25 MG tablet 25 mg PO DAILY RF: 0 multivitamin 1 EACH tablet 1 tab PO DAILY RF: 0 ferrous sulfate 325 MG tablet 325 mg PO DAILY RF: 0 metformin 1,000 MG tablet 1,000 mg PO BID RF: 0 omeprazole 20 MG capsule 20 mg PO DAILY RF: 0 coenzyme [id number] E 1 EACH capsule 1 cap PO DAILY RF: 0 budesonide-formoterol 1 INHALER inhaler 2 puff INHALATION BID RF: 0 Lactobacillus acidophilus 1 EACH capsule 1 ea PO DAILY RF: 0 cefdinir 300 MG capsule 300 mg PO BID Qty: 14 RF: 0 Primary Care Provider: [facility]errals[facility] [Primary Care Provider] - As Needed Disposition Disposition: Home, self care
[2020-08-10] MEDS: predniSONE 20 MG Tablet 60 MG PO (10:23)
[2020-08-10 12:12] VITALS: BP 132/87; PULSE 89; RESP 16; O2SAT 99
== END 2020-08-10 12:13 | disposition home or self-care (01) ==
PROVIDERS: Emergency Provider Emergency Medicine
DX: H81.12 Benign paroxysmal vertigo, left ear (principal); E66.9 Obesity, unspecified; F17.200 Nicotine dependence, unspecified, uncomplicated
CPT/HCPCS: 99284; A4216

== ENCOUNTER 2020-08-15 11:35 | Emergency (ER) | payer MEDICAID, SELFPAY ==
[2020-08-15 11:36] VITALS: BP 154/73; PULSE 73; RESP 18; TEMP 36.8; O2SAT 98; BMI 46.3
--- NOTE | 2020-08-15 11:53 | EX.ED.DYSGE1 ---
HPI History of Present Illness Chief Complaint: Dizziness Informant: patient Onset/Context/Timing Onset: Today Current Severity: Mild Maximum Severity: Mild Narrative Narrative: 60-year-old female history of diabetes, hypertension, depression and prior vertigo. Has had prior episodes most recently 1 week ago. States today she had room spinning dizziness worse with head movement. Associated nausea no vomiting. No diarrhea or fever. No head trauma or headache. She states this is very similar to her vertigo she is had in the past and is actually improving on its own. She denies any weakness or visual change or trouble moving her arms or legs. Prior similar symptoms: Yes Recent Illness/Hospitalization: No PFSH PFSH Medical History Depression Depression Diabetes Fracture, tibial plateau Hypertension MRSA (methicillin resistant staph aureus) culture positive Vertigo Home Medications B complex-vitamin C-folic acid 0.8 mg PO DAILY 04/14/20 [History Last Taken 04/14/20] Lactobacillus acidophilus 1 ea PO DAILY 04/14/20 [History Last Taken 04/14/20] budesonide-formoterol 2 puff INHALATION BID 04/14/20 [History Last Taken 04/14/20] coenzyme [id number] E 1 cap PO DAILY 04/14/20 [History Last Taken 04/14/20] ferrous sulfate 325 mg PO DAILY 04/14/20 [History Last Taken 04/14/20] hydrochlorothiazide 25 mg PO DAILY 04/14/20 [History Last Taken 04/14/20] losartan 50 mg PO DAILY 04/14/20 [History Last Taken 04/14/20] metformin 1,000 mg PO BID 04/14/20 [History Last Taken 04/14/20] montelukast 10 mg PO DAILY 04/14/20 [History Last Taken 04/14/20] multivitamin 1 tab PO DAILY 04/14/20 [History Last Taken 04/14/20] omeprazole 20 mg PO DAILY 04/14/20 [History Last Taken 04/13/20] sertraline 100 mg PO DAILY 04/14/20 [History Last Taken 04/14/20] cefdinir 300 mg PO BID #14 cap 04/17/20 [Rx Last Taken Unknown] meclizine 25 mg PO TID PRN 5 Days #14 tab 08/15/20 [Rx Last Taken Unknown] Allergy/AdvReac Type Severity Reaction Status Date / Time isoniazid Allergy Other Verified 08/10/20 09:58 Surgical History H/O: hysterectomy Social History household members: none current occupational exposures/hazards: No history of recent travel: No Smoking Status: Current every day smoker alcohol intake: current alcohol intake frequency: holidays/special occasions only ROS ROS ED ROS Narrative Older female no acute distress. Denies any recent illness. Review of Systems ROS Unobtainable: Denies due to encephalopathy Constitutional Constitutional ED: Denies fever(s) or sweats Eyes Eyes: Denies change in vision ENT ENT ED: Denies ear pain or sore throat Cardiovascular Cardiovascular: Denies chest pain Respiratory/Chest Respiratory/Chest: Denies cough or dyspnea Gastrointestinal Gastrointestinal: Reports nausea; Denies abdominal pain, constipation, diarrhea or vomiting Genitourinary Genitourinary ED: Denies dysuria or hematuria Musculoskeletal Musculoskeletal: Denies myalgias Integumentary Denies rash Neurologic Neurologic: Denies headache(s) Psychiatric Psychiatric: Denies depression Endocrine Endocrinology: Denies polyuria Allergic/Immunologic Allergic/Immunologic ED: Denies urticaria EXAM Physical Exam Narrative Exam Narrative: Well-appearing female no acute distress. Vital signs stable afebrile. HEENT exam normal. No droop. Pupils round reactive light. No nystagmus. TMs normal bilaterally. No wax. Neck nontender. Lungs clear to auscultation bilaterally. Heart regular rhythm rate about 70 no murmur. Abdomen soft nontender normal bowel sounds no peritoneal signs. Moving all 4 extremities. Neurovascular intact. Neurologically she is awake alert with no focal motor or sensory deficits. States that her symptoms are resolving on their own. Head movement does not provoke her vertigo at this time. NIH is 0. Const Vital Signs: 08/15/20 11:36 08/15/20 11:44 Temperature 98.3 F Temperature Source Oral Pulse Rate 73 Respiratory Rate 18 Respiratory Effort Normal Short of Breath Respiratory Pattern Normal Blood Pressure 154/73 H Blood Pressure Mean 100 Pulse Ox 98 Oxygen Delivery Method Room Air Positive well nourished and well developed General Appearance ED: well developed HEENT Reports moist mucous membranes Negative for trauma or tenderness Eyes PERRL and EOMs intact bilaterally Neck no lymphadenopathy, supple and no JVD General: Negative for tenderness Chest Wall inspection of chest normal Resp normal respiratory effort and clear to auscultation bilaterally GI normal to inspection, nondistended, normoactive bowel sounds, non-tender and non-distended Auscultation: normoactive bowel sounds Palpation: soft Back/Spine no CVA tenderness Extremity normal to inspection General Extremety ED: Negative for edema or tenderness General Extremity: Negative for edema Neuro oriented x3 and CN's II-XII intact bilaterally Sensorium / Orientation: alert Motor Exam: strength 5/5 throughout Psych mental status grossly normal Mood & Affect: Negative for depressed or tearful Skin no rashes or lesions noted and no wounds MDM MDM MDM Narrative Medical decision making narrative: 60-year-old female with history and exam consistent with vertigo. Symptoms are resolving. She had I discussed work-up such as CAT scan labs she deferred at this time. Says she is feeling better. She does not want a large work-up. She will be given a dose of Valium and reassess. Repeat exam at 1:05 PM patient is doing well. She feels better after dose of p.o. Valium. She is comfortable being discharged home. Her neurologic exam remains normal. Again she does not want any lab work or imaging. Discharge Plan Triage Chief Complaint: Dizziness ED Provider: Xavier Matta Dx/Rx/DC Orders Clinical Impression: Acute onset of severe vertigo Instructions: ED Vertigo, Unspecified Prescriptions: New meclizine 25 mg tablet 25 mg PO TID PRN (Reason: dizziness) 5 Days Qty: 14 RF: 0 No Action losartan 50 MG tablet 50 mg PO DAILY RF: 0 sertraline 100 MG tablet 100 mg PO DAILY RF: 0 montelukast 10 MG tablet 10 mg PO DAILY RF: 0 B complex-vitamin C-folic acid 0.8 MG tablet 0.8 mg PO DAILY RF: 0 hydrochlorothiazide 25 MG tablet 25 mg PO DAILY RF: 0 multivitamin 1 EACH tablet 1 tab PO DAILY RF: 0 ferrous sulfate 325 MG tablet 325 mg PO DAILY RF: 0 metformin 1,000 MG tablet 1,000 mg PO BID RF: 0 omeprazole 20 MG capsule 20 mg PO DAILY RF: 0 coenzyme [id number] E 1 EACH capsule 1 cap PO DAILY RF: 0 budesonide-formoterol 1 INHALER inhaler 2 puff INHALATION BID RF: 0 Lactobacillus acidophilus 1 EACH capsule 1 ea PO DAILY RF: 0 cefdinir 300 MG capsule 300 mg PO BID Qty: 14 RF: 0 Primary Care Provider: [facility] Noa Landry Referrals: [facility] Noa Landry [Primary Care Provider] - 3-5 Days if not improving Activity Restrictions/Additional Instructions: Antivert as needed for dizziness. Follow-up with your primary care provider if not improving. Or return to the emergency department if feeling worse. Disposition Disposition: Home, self care
[2020-08-15] MEDS: diazePAM 5 MG Tablet PO (12:08)
[2020-08-15 13:21] VITALS: BP 168/77; PULSE 88; RESP 20; O2SAT 96
== END 2020-08-15 13:22 | disposition home or self-care (01) ==
PROVIDERS: Emergency Provider Emergency Medicine
DX: R42 Dizziness and giddiness (principal); R11.0 Nausea; F17.200 Nicotine dependence, unspecified, uncomplicated; F32.9 Major depressive disorder, single episode, unspecified; E11.9 Type 2 diabetes mellitus without complications; I10 Essential (primary) hypertension; Z86.14 Personal history of Methicillin resistant Staphylococcus aureus infection
CPT/HCPCS: 99284; A4216

== ENCOUNTER → 2020-09-15 10:34 | Outpatient (CLI) | payer MEDICAID, SELFPAY ==
--- NOTE | 2020-09-15 10:46 | MRI_ITS ---
STUDY: MRI BRAIN WITH AND WITHOUT CONTRAST (ATTENTION INTERNAL AUDITORY CANALS - I.A.C.''s) REASON FOR EXAM: Female, 60 years old. Dizziness. ATTENTION: IACs. TECHNIQUE: Standardized multiplanar fat and water weighted pulse sequences were obtained. 23CC IV DOTAREM was administered for the contrast portion of the examination. COMPARISON: None. FINDINGS: Normal bilateral temporal bones. Normal bilateral internal auditory canals. There is no demonstrated intracanalicular or cisternal vestibular schwannoma (acoustic neuroma). There is no enhancement of the bilateral VIIth or VIIIth cranial nerves. Normal bilateral cochlea, vestibules and semicircular canals. Normal size of the ventricles and extra-axial spaces for the patient''s age. Normal white matter tracts of the supratentorial brain. Normal bilateral basal ganglia. Normal thalami. Normal flow voids within the major intracranial circulation suggesting patency by spin echo criteria. Normal venous enhancement. There is no enhancing intra-axial or extra-axial abnormality. There is no extra-axial fluid accumulation. Normal sella turcica, pituitary gland, infundibular stalk, optic chiasm and hypothalamus. Normal tectal plate and pineal gland. Normal midbrain, goyo and medulla. Normal cerebellum. Normal basal cisterns. No demonstrated orbital abnormality, within the constraints of a routine brain study. Normal visualized paranasal sinuses. Normal calvarium and skull base. Normal visualized soft tissue structures. Normal visualized upper cervical spine. MRI/Brain W/WO Contrast IMPRESSION: Normal unenhanced and enhanced MRI of the bilateral internal auditory canals (I.A.C''s). Electronically Signed: Haroon Bhandari MD at 13:41 EDT , Service support ,
[2020-09-15 11:16] LABS: CREATININE FINGERSTICK < 0.6 mg/dL (0.55-1.02); EGFR FINGERSTICK > 60.0000 mL/min (>60)
== END ==
PROVIDERS: PCP Nurse Practitioner Adult Health; Referring Provider Otolaryngology; Visit Provider Otolaryngology
DX: R42 Dizziness and giddiness (principal)
CPT/HCPCS: 70553; A9575

== ENCOUNTER → 2020-11-16 10:51 | Outpatient (CLI) | payer MEDICAID, SELFPAY ==
[2020-11-16 11:28] LABS: Absolute Lymphocyte Count 1.96 X10^3/uL (0.83-4.51); Absolute Neutrophil Count 5.8 X10^3/uL (2.0-7.7); Basophil# 0.04 X10^3/uL; Basophil% 0.5 % (0-1); Eosinophil# 0.14 X10^3/uL; Eosinophils% 1.7 % (0-5); Hemoglobin 13.6 g/dL (12.0-15.0); Lymphocyte # 1.96 X10^3/ul (0.83-4.51); Lymphocyte % 23.6 % (19-41); Mean Corp Hgb Conc 33.2 g/dL (32-36); Mean Corpuscular Volume 84.5 fL (81-99); Mean Platelet Vol. 10.5 fl (6.2-12.0); Monocyte# 0.39 X10^3/uL; Monocyte% 4.7 % (0-10); NRBC Flagged by Analyzer 0 % (0-5); Neutrophil # 5.77 X10^3/uL (2.7-7.7); Neutrophil % 69.3 % (47-70); Platelet Count 298 K/mm3 (150-450); RBC Distribution Width CV 15.5 % (11.6-14.6); RBC Distribution Width SD 47.3 fl (35.1-43.9); Red Blood Count 4.85 M/mm3 (4.2-5.4); White Blood Count 8.3 K/mm3 (4.4-11.0)
[2020-11-16 11:50] LABS: Vitamin B12 756 pg/mL (211-911)
[2020-11-16 12:59] LABS: ALB/GLOB Ratio 1.2 RATIO (0.9-2.4); AST(SGOT) 12 U/L (15-37); Alanine Aminotransfer ALT/SGPT 22 U/L (13-56); Albumin, Serum 4.2 g/dL (3.2-5.0); Alkaline Phosphatase 93 U/L (45-117); Anion Gap 2 (5-15); BUN 18 mg/dL (7-18); BUN/Creat Ratio 23.4 RATIO (10-20); Calcium,Total 9.7 mg/dL (8.5-10.1); Chloride 102 mmol/L (98-107); Creatinine, Serum 0.77 mg/dL (0.55-1.02); EST Glomerular Filtration Rate 81 mL/min (>60); Est Glom Filt Rate - Afr Amer 98 mL/min (>60); Globulin 3.5 g/dL (2.2-4.2); Glucose 202 mg/dL (74-106); Iron 83 ug/dL (50-170); Iron Binding Capacity,Total 363 ug/dL (250-450); PERCENT IRON SATURATION 22.9 % (15.0-55.0); Potassium 3.7 mmol/L (3.5-5.1); Protein, Total 7.7 g/dL (6.4-8.2); Sodium Level 137 mmol/L (136-145); T4 Free Direct 0.95 ng/dL (0.76-1.46); Thyroid Stim Hormone (TSH) 1.62 uIU/mL (0.358-3.74)
[2020-11-17 10:26] LABS: Thyroid Peroxidase AB < 8 IU/mL (0-34)
== END ==
PROVIDERS: Visit Provider Nurse Practitioner Adult Health
DX: E11.9 Type 2 diabetes mellitus without complications (principal); J44.9 Chronic obstructive pulmonary disease, unspecified; R63.4 Abnormal weight loss
CPT/HCPCS: 36415; 80053; 82607; 82652; 82746; 83540; 83550; 84439; 84443; 85025; 86376

== ENCOUNTER → 2020-11-23 07:52 | Outpatient (CLI) | payer MEDICAID, SELFPAY ==
--- NOTE | 2020-11-23 07:55 | CT_ITS ---
STUDY: LOW DOSE CT LUNG CANCER SCREENING REASON FOR EXAM: Female, 60 years old. COPD. The patient smoked 1.5 packs per day for 50 years. RADIATION DOSAGE (If Supplied By Facility): CTDIvol = ( 3.18 ) mGy, DLP = ( 94.89 ) mGycm TECHNIQUE: No contrast was administered. Low dose technique was utilized (average mAS-38 and kVp 120). 1.25 mm axial source images with a slice interval of 1.25-mm were reconstructed in lung windows. 2.5 mm axial source images with a slice interval of 2.5-mm were reconstructed in lung windows. 5.0 mm axial source images with a slice interval of 5.0-mm were reconstructed in soft tissue windows. Nodule measured using lung windows on PACS and/or independent workstation with automated measurement of minimum and maximum diameter. Nodule measurement reported as average diameter rounded to the nearest whole number. Growth is defined as an increase ins size of greater than 1.5 mm. COMPARISON: None. NODULES: There is a faint 5.7 mm nodule in the anterior aspect of the left upper lobe as seen on axial image #52 and coronal image #86. Aorta: Mild atherosclerotic plaque formation of the aortic arch. Coronary arteries: Coronary artery calcification. Heart: Small pericardial effusion. Pulmonary artery: Unremarkable Mediastinal nodes: Small benign-appearing mediastinal lymph nodes. Other chest and abdominal findings: CT/Low Dose CT Lung Screening IMPRESSION: Lung-RADS category 2 - Continue annual screening with LDCT in 12 months. IMPORTANT NOTES FOR USE: ACR Lung-RADS Version 1.1 Assessment Categories Release Date: 2018 Category: Coded 0-4 bases on nodule(s) with highest degree of suspicion. Negative screen is defined as categories 1 and 2; a positive screen is defined as categories 3 and 4. Category 3 and 4A nodules that are unchanged on interval CT should be coded as category 2, and individuals returned to screening in 12 months. Category 4X: Category 3 or 4 nodules with additional imaging findings that increase the suspicion of lung cancer, such as spiculation, GGN that doubles in size in 1 year, enlarged lymph notes, etc. Category Modifiers: S (significant finding unrelated to lung cancer) Electronically Signed: Christopher Romeo MD at 12:28 EDT , Service support ,
== END ==
DX: Z12.2 Encounter for screening for malignant neoplasm of respiratory organs (principal); J44.9 Chronic obstructive pulmonary disease, unspecified
CPT/HCPCS: 71271

== ENCOUNTER → 2020-12-07 09:45 | Outpatient (CLI) | payer MEDICAID, SELFPAY ==
--- NOTE | 2020-12-07 09:50 | BD_ITS ---
STUDY: DUAL ENERGY X-RAY ABSORPTIOMETRY / DXA REASON FOR EXAM: Female, 60 years old. M810. Patient is postmenopausal. TECHNIQUE: Bone Mineral Density (BMD) measurements of lumbar spine and bilateral hips were obtained. COMPARISON: None. FINDINGS: Lumbar Spine (L1-L4): g/cm2 (1.024) / T-score (-0.5) / Z-score (1.1) Findings are suggestive of normal bone density with a low fracture risk. Left Femur Total: g/cm2 (1.036) / T-score (0.8) / Z-score (1.9) Left Femoral Neck: g/cm2 (0.822) / T-score (-0.2) / Z-score (1.2) Right Femur Total: g/cm2 (0.965) / T-score (0.2) / Z-score (1.3) Right Femoral Neck: g/cm2 (0.857) / T-score (0.1) / Z-score (1.5) BD/Dexa Bone Density Study IMPRESSION: The patient is considered normal as outlined below according to World [place] Organization (WHO) criteria with a low fracture risk. Reference Information: The T-score is the number of standard deviations above or below the standard which is normal for young adults at their peak bone mineral density. The World Health Organization (WHO) interprets the T-scores as follows: Above -1 Normal bone density Between -1 and -2.5 Osteopenia Equal to / or below -2.5 Osteoporosis As a practical clinical guideline, osteopenia may be graded as follows: Mild -1 through -1.5 Moderate -1.6 through -2.0 Severe -2.1 through -2.4 The Z-score is the number of standard deviations above or below age-matched controls. A Z-score of less than -1.5 would be considered abnormal. References: 1. NIH Osteoporosis and Related Bone Diseases www osteo.org 2. International Society for Clinical Densitometry www iscd.org 3. National Osteoporosis Foundation www nof.org Electronically Signed: Christopher Romeo MD at 10:00 EDT , Service support ,
== END ==
PROVIDERS: Referring Provider Nurse Practitioner Adult Health; Visit Provider Nurse Practitioner Adult Health
DX: M81.0 Age-related osteoporosis without current pathological fracture (principal)
CPT/HCPCS: 77080

== ENCOUNTER → 2020-12-22 14:11 | Outpatient (CLI) | payer MEDICAID, SELFPAY ==
[2020-12-22 15:16] LABS: BNP,B-Type NATRIURETIC PEPTIDE 24.3 pg/mL (0-100)
== END ==
PROVIDERS: Visit Provider Nurse Practitioner Adult Health
DX: R07.9 Chest pain, unspecified (principal); R06.02 Shortness of breath
CPT/HCPCS: 36415; 83880

== ENCOUNTER → 2020-12-29 12:35 | Outpatient (CLI) | payer MEDICAID, SELFPAY ==
--- NOTE | 2020-12-29 12:40 | EKG12_ITS ---
Test Reason : CP Blood Pressure : / mmHG Vent. Rate : 088 BPM Atrial Rate : 088 BPM P-R Int : 166 ms QRS Dur : 082 ms QT Int : 336 ms P-R-T Axes : 053 016 041 degrees QTc Int : 406 ms Normal sinus rhythm Normal ECG Confirmed by ANDRES WIN, GREG ([id number]), editor publications TYRA CRAWFORD ([id number]) on 12/30/2020 12:37:57 PM Referred By: Genesis Koroma Confirmed By:GREG CAMPOS MD
--- NOTE | 2020-12-29 12:40 | ECHOD_ITS ---
Reason For Study: Chest Pain/possible Effusion Procedure This was a 2D Doppler, Color Flow transthoracic echocardiogram. The exam was of adequate technical quality. Exam performed in department. Left Ventricle Normal LV size. Left ventricular systolic function is normal. The estimated ejection fraction is 65 %. Diastolic function is indeterminate. No regional wall motion abnormalities noted. Right Ventricle Normal RV size. Normal systolic function. Atria The left atrium is mildly enlarged. Normal right atrium. No doppler evidence for ASD. Mitral Valve There is mild mitral annular calcification. Extension of the mitral annular calcification on the base of the posterior mitral valve leaflet. Mild focal mitral valve calcification of the anterior leaflet. Mild (1+) mitral valve insufficiency. Tricuspid Valve Normal tricuspid valve. Mild to moderate (1-2+) tricuspid valve insufficiency. Right ventricular systolic pressure estimated to be 34 mmHg. Aortic Valve Trisinus/trileaflet aortic valve. Mild focal aortic valve calcification. Pulmonic Valve The pulmonic valve is not well visualized. Great Vessels The aortic root is not well visualized. Pericardium/Pleural No pericardial effusion. MMode/2D Measurements & Calculations LVIDd: 4.1 cm IVSd: 1.5 cm LA dimension: 4.0 cm LVIDs: 3.1 cm LVPWd: 1.1 cm FS: 23.6 % LAV(MOD-bp): 54.1 ml LA A4 area: 19.2 cm2 RA A4 area: 17.5 cm2 LAV(MOD-bp) Indexed: 25.7 ml/m2 LAV(MOD-sp2): 55.3 ml LAV(MOD-sp4): 52.1 ml Time Measurements MV dec time: 0.22 sec Doppler Measurements & Calculations MV E max lisandro: 98.7 cm/sec Lat Peak E' Lisandro: 7.0 cm/sec Med Peak E' Lisandro: 4.6 cm/sec MV A max lisandro: 159.6 cm/sec E/E' lat: 14.0 E/E' med: 21.2 MV E/A: 0.62 MV V2 max: 152.5 cm/sec MV P1/2t max lisandro: 106.4 cm/sec Ao V2 max: 146.5 cm/sec MV max P.3 mmHg MV P1/2t: 98.3 msec Ao max P.6 mmHg MV V2 mean: 86.2 cm/sec MV dec slope: 317.1 cm/sec2 MV mean P.4 mmHg MVA(P1/2t): 2.2 cm2 MV V2 VTI: 39.5 cm LV V1 max: 144.9 cm/sec PA V2 max: 110.7 cm/sec TR max lisandro: 276.9 cm/sec LV V1 max P.4 mmHg TR max P.7 mmHg ECHO/Echo Complete Interpretation Summary Left ventricular systolic function is normal. The estimated ejection fraction is 65 %. The left atrium is mildly enlarged. There is mild mitral annular calcification. Extension of the mitral annular calcification on the base of the posterior mitr al valve leaflet. Mild focal mitral valve calcification of the anterior leaflet. Mild (1+) mitral valve insufficiency. Mild to moderate (1-2+) tricuspid valve insufficiency. Mild focal aortic valve calcification. Right ventricular systolic pressure estimated to be 34 mmHg. Diastolic function is indeterminate. Ordering Physician: Genesis Koroma Referring Physician: Genesis Koroma Performed By: Robbin Mcbride RCS
== END ==
PROVIDERS: Referring Provider Nurse Practitioner Adult Health; Visit Provider Nurse Practitioner Adult Health
DX: R07.9 Chest pain, unspecified (principal)
CPT/HCPCS: 93005; 93306

== ENCOUNTER 2021-04-09 13:48 | Outpatient (CLI) | payer MEDICAID, SELFPAY ==
[2021-04-09 14:04] VITALS: BP 131/76; PULSE 93; RESP 16; TEMP 36.9; O2SAT 94; BMI 42.5
[2021-04-09] MEDS: 0.9% Saline Lock 10 ML Syringe IV (14:08)
[2021-04-09 14:34] VITALS: BP 124/75; PULSE 89; RESP 16; TEMP 37; O2SAT 94
[2021-04-09 15:34] VITALS: BP 131/67; PULSE 85; RESP 16; TEMP 37.2; O2SAT 93
== END 2021-04-09 23:59 | disposition home or self-care (01) ==
LOC: MS3OUT 13:48 → MS3 13:49
PROVIDERS: Visit Provider Nurse Practitioner Adult Health
DX: U07.1 COVID-19 (principal)
CPT/HCPCS: J7050; M0243; A4216; Q0244

== ENCOUNTER 2021-04-15 14:12 | Emergency (ER) | payer MEDICAID, SELFPAY ==
[2021-04-15 14:13] VITALS: BP 180/85; PULSE 94; RESP 20; TEMP 36.2; O2SAT 96; BMI 42.6
[2021-04-15 14:51] LABS: Absolute Lymphocyte Count 1.08 X10^3/uL (0.83-4.51); Absolute Neutrophil Count 7.7 X10^3/uL (2.0-7.7); Basophil# 0.02 X10^3/uL; Basophil% 0.2 % (0-1); Eosinophil# 0.03 X10^3/uL; Eosinophils% 0.3 % (0-5); Hemoglobin 12.5 g/dL (12.0-15.0); Lymphocyte # 1.08 X10^3/ul (0.83-4.51); Lymphocyte % 11.8 % (19-41); Mean Corp Hgb Conc 34.7 g/dL (32-36); Mean Corpuscular Hgb 27.4 pg (27.0-32.0); Mean Corpuscular Volume 78.8 fL (81-99); Mean Platelet Vol. 8.9 fl (6.2-12.0); Monocyte% 2.2 % (0-10); NRBC Flagged by Analyzer 0 % (0-5); Neutrophil % 84.1 % (47-70); Platelet Count 286 K/mm3 (150-450); RBC Distribution Width CV 13.4 % (11.6-14.6); RBC Distribution Width SD 37.6 fl (35.1-43.9); Red Blood Count 4.57 M/mm3 (4.2-5.4); White Blood Count 9.2 K/mm3 (4.4-11.0)
[2021-04-15 15:01] LABS: Anion Gap 8 (5-15); BUN 18 mg/dL (7-18); Chloride 101 mmol/L (98-107); Creatinine, Serum 0.86 mg/dL (0.55-1.02); EST Glomerular Filtration Rate 71 mL/min (>60); Est Glom Filt Rate - Afr Amer 86 mL/min (>60); Estimated Creatinine Clearance 55.39 ml/min; Glucose 184 mg/dL (74-106); Potassium 3.7 mmol/L (3.5-5.1); Sodium Level 136 mmol/L (136-145)
[2021-04-15 15:33] VITALS: BP 158/80; O2SAT 95
[2021-04-15 15:34] VITALS: O2SAT 95
--- NOTE | 2021-04-15 15:45 | ED.VIS.DYS ---
HPI History of Present Illness Chief Complaint: Shortness of Breath Informant: patient Narrative Narrative: Patient is a 61-year-old female with history of COPD, HTN, HLD, vertigo and recent diagnosis of COVID-19 infection presenting with hypoxia and vital [facility] clinic. Patient started having COVID symptoms on April 02. She was diagnosed on April 04. She is continue to feel very fatigued, have cough and shortness of breath. She states her cough is intermittently productive of white/creamy sputum. She has a sore throat. She has associated headache. Denies any vision changes. Denies any recent fevers. Denies any chest pain, nausea, vomiting or diarrhea. She does have a history of COPD and quit smoking 1 month ago. She was prescribed Mucinex, prednisone and azithromycin yesterday by [facility]. She followed up today and was 88% there. She was sent to the ER to rule out pneumonia or complication from COVID. Patient [place] any other acute complaints at this time. [facility] Medical History Depression Depression Diabetes Essential hypertension Fracture, tibial plateau History of hypertension Hypertension MRSA (methicillin resistant staph aureus) culture positive Vertigo Home Medications B complex-vitamin C-folic acid 0.8 mg PO DAILY 04/14/20 [History Last Taken 04/14/20] Lactobacillus acidophilus 1 ea PO DAILY 04/14/20 [History Last Taken 04/14/20] budesonide-formoterol 2 puff INHALATION BID 04/14/20 [History Last Taken 04/14/20] coenzyme [id number] E 1 cap PO DAILY 04/14/20 [History Last Taken 04/14/20] ferrous sulfate 325 mg PO DAILY 04/14/20 [History Last Taken 04/14/20] hydrochlorothiazide 25 mg PO DAILY 04/14/20 [History Last Taken 04/14/20] losartan 50 mg PO DAILY 04/14/20 [History Last Taken 04/14/20] metformin 1,000 mg PO BID 04/14/20 [History Last Taken 04/14/20] montelukast 10 mg PO DAILY 04/14/20 [History Last Taken 04/14/20] multivitamin 1 tab PO DAILY 04/14/20 [History Last Taken 04/14/20] omeprazole 20 mg PO DAILY 04/14/20 [History Last Taken 04/13/20] sertraline 100 mg PO DAILY 04/14/20 [History Last Taken 04/14/20] cefdinir 300 mg PO BID #14 cap 04/17/20 [Rx Last Taken Unknown] meclizine 25 mg PO TID PRN 5 Days #14 tab 08/15/20 [Rx Last Taken Unknown] Allergy/AdvReac Type Severity Reaction Status Date / Time isoniazid Allergy Other Verified 04/15/21 14:15 Surgical History H/O: hysterectomy Social History household members: none current occupational exposures/hazards: No history of recent travel: No Smoking Status: Current every day smoker tobacco type: cigarettes alcohol intake: current alcohol intake frequency: holidays/special occasions only ROS ROS ED Constitutional Constitutional ED: Reports malaise; Denies chills or fever(s) Eyes Eyes: Denies blurry vision or loss of vision ENT ENT ED: Reports sore throat; Denies rhinorrhea Cardiovascular Cardiovascular: Denies chest pain or dizziness Respiratory/Chest Respiratory/Chest: Reports cough, dyspnea, dyspnea on exertion and sputum Gastrointestinal Gastrointestinal: Denies diarrhea, nausea or vomiting Genitourinary Genitourinary ED: Denies dysuria or hematuria Musculoskeletal Musculoskeletal: Denies arthralgias or myalgias Integumentary Denies rash or wounds Neurologic Neurologic: Reports headache(s); Denies focal weakness or weakness Psychiatric Psychiatric: Denies anxiety or behavioral changes EXAM Physical Exam Const Vital Signs: 04/15/21 14:13 04/15/21 15:33 04/15/21 15:34 Temperature 97.2 F L Temperature Source Temporal Pulse Rate 94 Respiratory Rate 20 H Blood Pressure 180/85 H 158/80 H Blood Pressure Mean 116 106 Pulse Ox 96 95 95 Oxygen Delivery Method Room Air Room Air Room Air 04/15/21 16:09 04/15/21 16:46 04/15/21 16:52 Temperature Temperature Source Pulse Rate 82 78 Respiratory Rate 18 18 Blood Pressure 161/81 H Blood Pressure Mean 107 Pulse Ox 97 Oxygen Delivery Method Room Air Room Air Positive well nourished and well developed General Appearance ED: well developed HEENT Reports TM's clear and moist mucous membranes HEENT Narrative: Mild erythema of the posterior oropharynx Tympanic Membrane ED: Yes TM's clear Eyes PERRL and EOMs intact bilaterally Neck no lymphadenopathy, supple, no meningeal signs and no JVD Resp normal respiratory effort Resp Narrative: Mildly diminished breath sounds. Expiratory rhonchi at the bases present. No significant wheezing or crackles appreciated. Cardio regular rate, regular rhythm and no murmurs GI non-tender and non-distended Palpation: soft Back/Spine normal to inspection Neuro oriented x3 Sensorium / Orientation: alert; Negative for confused Motor Exam: Negative for general weakness Psych mental status grossly normal Skin Lesions: no lesions Rashes: no rashes MDM MDM MDM Narrative Medical decision making narrative: Patient evaluated for shortness of breath and an episode of hypoxia at PCP office. Patient peers nontoxic no acute distress. She states she is continue to improve however it has been slower especially the history of COPD. She is given a DuoNeb in the ER. She did recently have COVID-19 infection so she is at high risk for PE. Her D-dimer is normal and I do not suspect a PE. She is not having significant electrolyte abnormalities nor leukocytosis. High sensitive troponin is normal. Chest x-rays not show any acute infiltrate. There is a small area of atelectasis. Patient is ambulated and does not have any hypoxia. She does not qualify for home oxygen. I do not think she needs to be admitted. She is agreeable to this plan of care. She was prescribed prednisone, azithromycin and Mucinex yesterday and encouraged to keep taking it. She has breathing treatments at home to use as needed. She is counseled that she probably return to work on Sunday if she does not start to feel worse. She is counseled on return precautions. She verbalizes agreement with this plan she is discharged home in stable condition. Lab Data Labs: Laboratory Results - last 24 hr 04/15/21 04/15/21 04/15/21 14:35 14:35 14:35 WBC 9.2 RBC 4.57 Hgb 12.5 Hct 36.0 L MCV 78.8 L MCH 27.4 MCHC 34.7 RDW Std Deviation 37.6 RDW Coeff of Christina 13.4 Plt Count 286 MPV 8.9 Immature Gran % (Auto) 1.400 H Neut % (Auto) 84.1 H Lymph % (Auto) 11.8 L Sunflower % (Auto) 2.2 Eos % (Auto) 0.3 Baso % (Auto) 0.2 Absolute Neuts (auto) 7.7 Absolute Lymphs (auto) 1.08 Nucleated RBC % 0 D-Dimer Quant (PE/DVT) 0.45 Sodium 136 Potassium 3.7 Chloride 101 Carbon Dioxide 27.0 Anion Gap 8 BUN 18 Creatinine 0.86 Estim Creat Clear Calc 55.39 Est GFR (MDRD) Af Amer 86 Est GFR (MDRD) Non-Af 71 BUN/Creatinine Ratio 21.0 H Glucose 184 H Calcium 10.0 Troponin I High Sens 04/15/21 14:35 WBC RBC Hgb Hct MCV MCH MCHC RDW Std Deviation RDW Coeff of Christina Plt Count MPV Immature Gran % (Auto) Neut % (Auto) Lymph % (Auto) Sunflower % (Auto) Eos % (Auto) Baso % (Auto) Absolute Neuts (auto) Absolute Lymphs (auto) Nucleated RBC % D-Dimer Quant (PE/DVT) Sodium Potassium Chloride Carbon Dioxide Anion Gap BUN Creatinine Estim Creat Clear Calc Est GFR (MDRD) Af Amer Est GFR (MDRD) Non-Af BUN/Creatinine Ratio Glucose Calcium Troponin I High Sens 8 Radiography Chest X-Ray - ED: 2 View, Read by ED Physician, Read by Radiologist and No Acute Disease Diagnostic Testing: Clinical Impression(s) from Imaging Studies Chest X-Ray 04/15/21 16:10 IMPRESSION: No acute radiographic abnormalities. Streaky linear opacities in the right lung base most likely represents atelectasis. Electronically Signed: Chris Doyle MD at 16:25 EST Tel , Service support , Discharge Plan Triage Chief Complaint: Shortness of Breath ED Provider: Hina Garcia Dx/Rx/DC Orders Clinical Impression: COPD (chronic obstructive pulmonary disease), CEBALLOS (dyspnea on exertion) Instructions: ED Dyspnea Prescriptions: No Action losartan 50 MG tablet 50 mg PO DAILY RF: 0 sertraline 100 MG tablet 100 mg PO DAILY RF: 0 montelukast 10 MG tablet 10 mg PO DAILY RF: 0 B complex-vitamin C-folic acid 0.8 MG tablet 0.8 mg PO DAILY RF: 0 hydrochlorothiazide 25 MG tablet 25 mg PO DAILY RF: 0 multivitamin 1 EACH tablet 1 tab PO DAILY RF: 0 ferrous sulfate 325 MG tablet 325 mg PO DAILY RF: 0 metformin 1,000 MG tablet 1,000 mg PO BID RF: 0 omeprazole 20 MG capsule 20 mg PO DAILY RF: 0 coenzyme [id number] E 1 EACH capsule 1 cap PO DAILY RF: 0 budesonide-formoterol 1 INHALER inhaler 2 puff INHALATION BID RF: 0 Lactobacillus acidophilus 1 EACH capsule 1 ea PO DAILY RF: 0 cefdinir 300 MG capsule 300 mg PO BID Qty: 14 RF: 0 meclizine 25 mg tablet 25 mg PO TID PRN (Reason: dizziness) 5 Days Qty: 14 RF: 0 Primary Care Provider: Noa Schrader Referrals: Noa Schrader [Primary Care Provider] - Activity Restrictions/Additional Instructions: You are not hypoxic in the ER and do not meet criteria for home oxygen or admission. If you are not feeling worse and are slowly continuing to improve, you can return to work on Sunday. Continue take the medications prescribed to you yesterday. Disposition Disposition: Home, Self Care
[2021-04-15 15:50] LABS: D-Dimer Quantitative (DVT/PE) 0.45 FEU/ug/m (0.27-0.49)
[2021-04-15 16:03] LABS: Troponin-I HS 8 pg/mL (3.0-54.0)
[2021-04-15 16:09] VITALS: PULSE 82; RESP 18
[2021-04-15] MEDS: Ipratropium/Albuterol Sulfate 3 ML AMPUL.NEB INHALATION (16:09)
--- NOTE | 2021-04-15 16:10 | RAD_ITS ---
INDICATION: SOB EXAMINATION/TECHNIQUE: X-RAY - XR Chest 2 Views COMPARISON: 02/18/2020. FINDINGS: Streaky linear opacities in the right lung base. The cardiomediastinal silhouette is unremarkable. No pleural effusion or pneumothorax. Degenerative changes of the thoracic spine. RAD/Chest PA and Lateral IMPRESSION: No acute radiographic abnormalities. Streaky linear opacities in the right lung base most likely represents atelectasis. Electronically Signed: Chris Doyle MD at 16:25 EST Tel , Service support ,
[2021-04-15 16:46] VITALS: O2SAT 93
[2021-04-15 16:52] VITALS: BP 161/81; PULSE 78; RESP 18; O2SAT 97
== END 2021-04-15 17:36 | disposition home or self-care (01) ==
PROVIDERS: Emergency Provider Emergency Medicine; Visit Provider Emergency Medicine
DX: J44.9 Chronic obstructive pulmonary disease, unspecified (principal); R06.09 Other forms of dyspnea; Z87.891 Personal history of nicotine dependence
CPT/HCPCS: 71046; 80048; 84484; 85025; 85379; 94640; 94760; 99283; A4216

== ENCOUNTER 2021-07-14 11:20 | Outpatient (CLI) | payer MEDICAID, SELFPAY ==
--- NOTE | 2021-07-14 11:29 | RAD_ITS ---
STUDY: X-RAY - RIGHT KNEE REASON FOR EXAM: Female, 61 years old. Right knee pain. TECHNIQUE: 2 view(s) of the knee. COMPARISON: None. FINDINGS: Mild osteopenia. Lateral plate and screw fixation of the proximal tibia with anatomic alignment at the lateral tibial plateau fracture site. Severe arthrosis of the medial compartment. Moderate arthrosis of the lateral compartment. Mild arthrosis of the patellofemoral compartment. Small joint effusion. RAD/Knee 1 or 2 Views IMPRESSION: Postsurgical changes of the proximal tibia with tricompartmental arthrosis, most marked in the medial femorotibial compartment, as outlined above. No acute abnormality or erosive changes. Electronically Signed: Charlie Price MD at 12:45 EDT ,
--- NOTE | 2021-07-14 11:35 | RAD_ITS ---
STUDY: X-RAY - LEFT KNEE REASON FOR EXAM: Female, 61 years old. Left knee pain. TECHNIQUE: 2 view(s) of the knee. COMPARISON: None. FINDINGS: Mild osteopenia. Superior patellar spur. Moderate to marked medial compartmental arthrosis with osteophytes. Normal lateral femorotibial compartment. Mild arthrosis of the patellofemoral compartment. The soft tissue structures are unremarkable. RAD/Knee 1 or 2 Views IMPRESSION: Osteopenia with medial and patellofemoral compartmental arthrosis as described. No acute abnormality, chondrocalcinosis, erosive changes or periostitis. Electronically Signed: Charlie Price MD at 12:46 EDT ,
== END 2021-07-14 23:59 | disposition home or self-care (01) ==
LOC: RAD.FUTURE 11:23
DX: M25.562 Pain in left knee (principal); M25.561 Pain in right knee
CPT/HCPCS: 73560

== ENCOUNTER → 2021-08-11 | Outpatient (CLI) | payer MEDICAID, SELFPAY ==
--- NOTE | 2021-08-11 12:05 | RAD_ITS ---
STUDY: X-RAY CHEST REASON FOR EXAM: Female, 61 years old. bronchitis TECHNIQUE: PA and lateral COMPARISON: None. FINDINGS: The lungs are clear and expanded. There is no demonstrated pleural abnormality. Normal size heart. Normal mediastinum and karen. Normal visualized pulmonary arteries. Normal visualized aortic arch and descending thoracic aorta. Normal visualized thoracic spine. Normal visualized ribs, clavicles, and shoulders. There is no demonstrated abnormality of the visualized soft tissue structures of the upper abdomen. RAD/Chest PA and Lateral IMPRESSION: Normal x-ray examination of the chest. Electronically Signed: Fareed Pagan MD at 0:07 EDT ,
== END | disposition home or self-care (01) ==
LOC: RAD 11:58
PROVIDERS: Referring Provider Internal Medicine Cardiovascular Disease; Visit Provider Internal Medicine Cardiovascular Disease
DX: R00.2 Palpitations (principal); I10 Essential (primary) hypertension; E78.5 Hyperlipidemia, unspecified; R07.89 Other chest pain; J40 Bronchitis, not specified as acute or chronic
CPT/HCPCS: 71046

== ENCOUNTER → 2021-09-06 | Outpatient (CLI) | payer MEDICAID, SELFPAY ==
--- NOTE | 2021-09-06 08:32 | STRESSREP_ITS ---
Stress Test Report Date: 09-06-2021 Procedure: Pharmacologic stress nuclear imaging study Indications: Chest pain; palpitations; hyperlipidemia; hypertension Consent: Per the patient Procedure: The patient underwent pharmacologic (Regadenoson 0.4mg ) evaluation with a peak heart rate of 112 beats per minute (71%predicted maximal heart rate) and a peak blood pressure of 142/82 mmHg. The baseline ECG demonstrated normal sinus rhythm. The peak pharmacologic ECG demonstrated no obvious ECG changes. There were no cardiac dysrhythmias pretest, during pharmacologic infusion, or recovery. There was no complaint of chest discomfort during pharmacologic infusion or recovery. The examination was discontinued secondary to completion of protocol. Impression: 1. Pharmacologic (Regadenoson) evaluation 2. Peak pharmacologic ECG with no obvious ECG change. 3. There were no cardiac dysrhythmias pretest, during pharmacologic infusion, or recovery. 4. Nuclear images pending Myocardial perfusion imaging study: Technique: The patient was injected with 15.0 millicuries of technetium 99m Cardiolite and subsequently rest SPECT Cardiolite nuclear imaging was obtained in the horizontal long, vertical long, and short axis views. The patient underwent pharmacologic (Regadenoson) evaluation with a peak heart rate of 112 beats per minute (71% percent predicted maximal heart rate) and a peak blood pressure of 142/82 mmHg. The patient was injected with 44.8 millicuries of technetium 99m Cardiolite and subsequently stress SPECT Cardiolite nuclear imaging was obtained in the horizontal long, vertical long, and short axis views. A gated Cardiolite study at peak stress was obtained. Interpretation: Rest and stress SPECT Cardiolite nuclear imaging status post realignment, normalization, and attenuation correction demonstrate the appearance of body motion during image acquisition, at rest the appearance of relative uniform tracer uptake and myocardial perfusion appearing within normal limits, status post stress and area of diminished myocardial perfusion/tracer uptake in the distal anterior/anteroapical segments. There is end systolic thickening and brightening. The gated Cardiolite study demonstrates myocardial thickening and inward wall motion. The reported LVEF is 73%. Impression: 1. Rest and stress SPECT Cardiolit nuclear imaging demonstrate myocardial perfusion changes appearing compatible with body motion during image acquisition as well as an area suggestive of an area of stress-induced myocardial ischemia involving portions of the distal anterior/anteroapical segments, however, an element of shifting soft tissue/attenuation artifact from body motion cannot necessarily be excluded. 2. The gated Cardiolite study reports an LVEF of 73%. This note was generated with [employer]ation software. It may contain incorrect words, spelling, and punctuation that were not noted in checking the note before signing.
== END | disposition home or self-care (01) ==
LOC: CVS 07:07
PROVIDERS: Referring Provider Internal Medicine Cardiovascular Disease; Visit Provider Internal Medicine Cardiovascular Disease
DX: R00.2 Palpitations (principal); I10 Essential (primary) hypertension; E78.5 Hyperlipidemia, unspecified; R07.89 Other chest pain; J40 Bronchitis, not specified as acute or chronic
CPT/HCPCS: 78452; 93017; A9500; A4216; J2785

== ENCOUNTER 2021-09-27 07:25 | Day surgery (SDC) | payer MEDICAID, SELFPAY ==
[2021-09-13 10:13] LABS: Hematocrit 42.3 % (37-47); Mean Corp Hgb Conc 33.1 g/dL (32-36); Mean Corpuscular Hgb 27.4 pg (27.0-32.0); Mean Corpuscular Volume 82.8 fL (81-99); Mean Platelet Vol. 10.5 fl (6.2-12.0); Platelet Count 282 K/mm3 (150-450); RBC Distribution Width CV 14.9 % (11.6-14.6); RBC Distribution Width SD 44.3 fl (35.1-43.9); Red Blood Count 5.11 M/mm3 (4.2-5.4); White Blood Count 8.9 K/mm3 (4.4-11.0)
[2021-09-13 10:22] LABS: International Normalized Ratio 0.9; Prothrombin Time (Protime)PT. 11.7 SECONDS (11.7-14.9)
[2021-09-13 10:46] LABS: Anion Gap 3 (5-15); BUN 20 mg/dL (7-18); BUN/Creat Ratio 26.2 RATIO (10-20); Calcium,Total 9.4 mg/dL (8.5-10.1); Chloride 104 mmol/L (98-107); Creatinine, Serum 0.76 mg/dL (0.55-1.02); EST Glomerular Filtration Rate 81 mL/min (>60); Est Glom Filt Rate - Afr Amer 98 mL/min (>60); Glucose 138 mg/dL (74-106); Sodium Level 139 mmol/L (136-145)
[2021-09-26 07:58] VITALS: BMI 42.8
--- NOTE | 2021-09-26 17:46 | HP.PCM_ITS ---
History and Physical Date of Admission: 09/27/21 [facility] [address] [place], [place] [address] OFFICE VISIT Date of Service:? 08/11/21 MR#: [id number] Acct: [id number] Name:DAPHNEY RAO Rep #: [id number] : 1960 Provider: Dr. Fred Vines MD Age/Sex:? 61/F [place] [facility] [place] Status: Signed HPI [facility] History of Present Illness Details: This is a 61-year-old white female who presents today for outpatient cardiovascular consultation based upon concerns of palpitations, chest discomfort, superimposed upon hyperlipidemia, hypertension, and newly diagnosed bronchitis.? She states that for years she has noted at times palpitations.? She states these are very random and do not necessarily occur every 1 to 2 days nor do they occur every week she states they do not necessarily occur every month.? She has had no near-syncope or syncope.? She states she has not been overly concerned about these events because they are so rare and they do not seem to have any adverse events. She does complain of chest discomfort.? She states sometimes it feels sharp sometimes it feels dull.? Again these events are relatively rare not frequent.? They are not necessarily associated with ongoing nausea or emesis or diaphoresis. She has chronic shortness of breath and dyspnea.? She states it is exacerbated at this time because she was diagnosed with bronchitis earlier today.? She was told by her primary care physician group that if her symptoms did not improve within 1 to 2 days she should initiate antibiotic therapy.? She has had no other studies of her lungs performed. She did have COVID-19 in the past. She has had a transthoracic echocardiogram performed in December 2020.? The results are noted below. She had a stress nuclear imaging study performed in May 2015.? The results are noted below.? She does comment that if she would require another stress test based upon her ongoing knee related issues that she would not be able to walk on a treadmill. She had an ECG in the office today.? She was noted to have sinus rhythm/sinus tachycardia with a ventricular rate at approximately 100 bpm with what appears to be left atrial enlargement and poor R wave progression. Intake Vital Signs ? 08/11/2210:03 Height 5 ft 3 in Weight: 242 lb BMI 42.8 BP 148/86 H Blood Pressure Location Lt brachial Position Sitting Respiration 18 Pulse 100 D Pulse Source Auscultation Intake Visit Reasons:?CP, HTN (VS) Mosaicist Required: No Accompanied by: Self Allergies isoniazid Allergy (Verified 08/11/21 11:07) Other Medications B complex-vitamin C-folic acid 0.8 mg PO DAILY 04/14/20 [History Confirmed 08/11/21] coenzyme [id number] E 1 cap PO DAILY 04/14/20 [History Confirmed 08/11/21] ferrous sulfate 325 mg PO DAILY 04/14/20 [History Confirmed 08/11/21] hydrochlorothiazide 25 mg PO DAILY 04/14/20 [History Confirmed 08/11/21] losartan 50 mg PO DAILY 04/14/20 [History Confirmed 08/11/21] metformin 1,000 mg PO BID 04/14/20 [History Confirmed 08/11/21] montelukast 10 mg PO DAILY 04/14/20 [History Confirmed 08/11/21] multivitamin 1 tab PO DAILY 04/14/20 [History Confirmed 08/11/21] omeprazole 20 mg PO DAILY 04/14/20 [History Confirmed 08/11/21] sertraline 100 mg PO DAILY 04/14/20 [History Confirmed 08/11/21] fluticasone propionate 50 mcg/actuation nasal spray,suspension 2 spray INTRANASAL? g 08/03/21 [History Confirmed 08/11/21] mometasone-formoterol HFA 200 mcg-5 mcg/actuation aerosol inhaler 2 inh INHAL ATION? g 08/03/21 [History Confirmed 08/11/21] Brain health 1 tablet PO DAILY 08/11/21 [History] ergocalciferol (vitamin D2) 1,250 mcg (50,000 unit) capsule 1,250 mcg PO QWEEK? cap 08/11/21 [History Confirmed 08/11/21] hydroxyzine pamoate 50 mg capsule 50 mg PO BID? cap 08/11/21 [History Confirmed 08/11/21] naproxen sodium 220 mg tablet 220 mg PO BID PRN? tab 08/11/21 [History Confirmed 08/11/21] PFSH Medical History?(Updated 08/11/21 @ 11:[address] Fred Vines MD) Bronchitis COVID-19 Depression Depression Diabetes Essential hypertension Fracture, tibial plateau History of hypertension Hypertension MRSA (methicillin resistant staph aureus) culture positive Palpitations Type 2 diabetes mellitus Vertigo Surgical History? H/O: hysterectomy Hx of right knee surgery Family History? Brother Atrial fibrillationGrandfather?? Myocardial infarctionGrandmother?? Myocardial infarction Social History? household members:? none current occupational exposures/hazards:? No history of recent travel:? No Smoking Status:? Current every day smoker tobacco type: cigarettes alcohol intake:? current alcohol intake frequency: holidays/special occasions only substance use type:? does not use caffeine:? Yes Type: coffee Number of servings: 3 ROS Const Const: Negative for fatigue, weakness, frequent falls, excessive sweating, weight gain or weight loss Eyes Eyes: Negative for transient loss of vision, blurry vision or change in vision ENT ENT: Positive for dizziness (constant good/bad days HX vertigo) and balance problems (occasional) Cardio Chest Pain: Yes Character: dull (occasional radiates to Lt UE) Onset: at rest and exercise Location: mid sternal Duration: brief Relieving: rest Palpitations: Yes (occasional) feels like its: fast and pounding Edema: None Muscle aches with walking: None Resp Respiratory: Positive for SOB with activity (increased..... DX Bronchitis..), SOB at rest (occasional), SOB orthopnea\SOB lying down (occasional), Cough (productive, light yellow) and wheezing GI GI: Negative vomiting or vomiting blood/hematemesis : Negative for hematuria Musc Musc: Positive for muscle aches/ myalgia (cramping bilat LE at night) and balance problems (occasional); Negative for muscle weakness or joint pain Skin Skin: Negative non-healing lesions or rash Neuro Neuro: Positive for dizziness (constant good/bad days HX vertigo), lightheadedness (occasional) and vertigo (HX); Negative for orthostatic symptoms, frequent falls, weakness or blurry vision Noe Hematologic/Lymphatic: Negative for easy bleeding Endo Endo: Negative for fatigue or excessive sweating Psych Psych: Negative for anxiety or depression Allergy Allergy/Immunology: Negative for hives and Negative for rash Cardiology Exam Const Appearance: cooperative, healthy appearing, comfortable, no acute distress, well developed and well groomed Nutritional Appearance: obese Orientation: alert, awake and oriented x3 Head Head: normal to inspection, normocephalic and atraumatic Ears: hearing grossly normal bilaterally Nose: external nose normal Face and Sinus: face symmetric Eyes Eyelids: eyelids normal Conjunctivae: conjunctivae normal Pupils: PERRL EOM: EOM intact bilaterally Neck Neck: normal visual inspection and full ROM Carotids: normal carotid upstroke Chest Chest inspection: normal inspection of the chest, symmetric chest movement and normal respiratory effort Auscultation: Bilateral: Expiratory Wheezes Cardio Rate: regular rate Rhythm: regular rhythm Heart sounds: S1 normal and S2 normal GI GI: normal to inspection, soft, bowel sounds present and obese Neuro General: patient alert, patient awake, patient oriented x3 and moves all extremities Skin Skin: no rashes or lesions noted Extremities Pulses: Normal: Right Radial Pulse and Left Radial Pulse Lower Extremity Edema: None: Bilateral Psych Psychological: normal affect Supplemental Info Supplemental Information Transthoracic echocardiogram: 12-29-2020 Interpretation Summary Left ventricular systolic function is normal. The estimated ejection fraction is 65 %. The left atrium is mildly enlarged. There is mild mitral annular calcification. Extension of the mitral annular calcification on the base of the posterior mitral valve leaflet. Mild focal mitral valve calcification of the anterior leaflet. Mild (1+) mitral valve insufficiency. Mild to moderate (1-2+) tricuspid valve insufficiency. Mild focal aortic valve calcification. Right ventricular systolic pressure estimated to be 34 mmHg. Diastolic function is indeterminate. Stress Test: 05/14/2015 DATE OF SERVICE: This is an exercise myocardial perfusion stress test in a 55-year-old. Resting EKG demonstrated normal sinus rhythm with a rate of 70 beats per minute.? Normal intervals are noted.? Resting blood pressure was 122/84. STRESS TEST: The patient exercised according to a regular Todd protocol for a total duration of 4 minutes completing 1 minute into stage 2 of the Todd protocol.? The maximum heart rate attained was 166 beats per minute, which was 101% of maximum predicted heart rate.? The maximum workload attained was 5.8 METS.? At rest, there were no ST or T-wave changes noted to suggest ischemia.? At peak exercise, upsloping ST changes were noted, which did not meet the criteria for ischemia.? The resting blood pressure was 122/84 with a peak blood pressure 172/70.? Rate pressure product was 25,800. MYOCARDIAL PERFUSION PROTOCOL: 14.6 mCi of sestamibi was injected at rest.? The patient exercised according to a regular Todd protocol for a total duration of 4 minutes.? The patient completed 5.8 METS.? At peak exercise, 44.7 mCi of sestamibi was injected.? Stress images were obtained.? Stress and rest images were reconstructed and compared in the short axis, vertical long and horizontal long axes.? Gated images were also obtained. PERFUSION SPECT ANALYSIS: Review of the images demonstrated normal uptake of tracer noted in all areas of the myocardium.? The resting images similarly demonstrated normal uptake of tracer noted in all areas of the myocardium.? No areas of reversibility are noted to suggest ischemia. GATED SPECT ANALYSIS: The gated ejection fraction is noted to be 72%. CONCLUSION: 1.? Normal exercise myocardial perfusion stress test. 2.? Preserved ejection fraction. Labs: ?? ? LDL Cholesterol 106 mg/dL (0-130) ?? ? HDL Cholesterol 47 mg/dL (40-) ?? ? Triglycerides 127 mg/dL (-199) ?? ? VLDL Cholesterol 25 mg/dL (5-40) Diagnostics: ?? ? Electrocardiogram ? Echocardiogram ? Stress Test NM ? Chest X-Ray ? Pulmonary: ?? ?D Pulmonary Function Test ? Assessment and Plan Assessment and Plan (1) Palpitations: ?Status:?Acute ? ? ? Orders:?Orders: ? Nuclear Stress Test - Chemical 1 Month ? ? ? Chest PA and Lateral Today ?Plan - Dr. Fred Vines MD: At the present time she does not necessarily want to pursue further evaluation of her palpitations unless they become more frequent or problematic.? She will monitor for any changes in her clinical course. (2) Atypical chest pain: ?Status:?Inactive ? ? ? Orders:?Orders: ? 12 Lead EKG performed by [facility] Today ? ? ? Nuclear Stress Test - Chemical 1 Month ? ? ? Chest PA and Lateral Today ?Plan - Dr. Fred Vines MD: She is agreeable to pursuing further evaluation of her chest discomfort with a future pharmacologic stress nuclear imaging study once she has recuperated from her ongoing bronchitis. (3) Hyperlipidemia: ?Status:?Chronic ? ? ? Orders:?Orders: ? 12 Lead EKG performed by [facility] Today ? ? ? Nuclear Stress Test - Chemical 1 Month ? ? ? Chest PA and Lateral Today ?Plan - Dr. Fred Vines MD: A copy of her most recent lipid labs from her PCP group would be appreciated for continuity of care. (4) Essential hypertension: ?Status:?Acute ? ? ? Orders:?Orders: ? 12 Lead EKG performed by [facility] Today ? ? ? Nuclear Stress Test - Chemical 1 Month ? ? ? Chest PA and Lateral Today ?Plan - Dr. Fred Vines MD: Her blood pressure is somewhat elevated today.? However it does not appear based upon previous records available for review that is chronically elevated. She will continue her current medical therapy and monitor her blood pressure for any continued elevated trends. (5) Bronchitis: ?Status:?Acute ? ? ? Orders:?Orders: ? Nuclear Stress Test - Chemical 1 Month ? ? ? Chest PA and Lateral Today ?Plan - Dr. Fred Vines MD: She is going to follow with her PCP group for concerns of her bronchitis. She will also have a chest x-ray performed today based upon her ongoing pulmonary issues. Plan Details Additional Comments: Thank you for allowing me to participate in the care of your patient.? Please don't hesitate to call if any issues arise. This note was generated using a voice recognition system and there may be incorrect words, spelling or punctuation that were not noted when reviewing the office note prior to saving. Follow Up: ? ? 6 Weeks?(PFM ) COVID (Procedure Consent) Procedure Criteria Procedure Criteria: Yes Elective?The surgeon/proceduralist and patient have discussed in detail the risk of exposure to and/or potential harm posed by the COVID-19 virus with having a surgery/procedure at this time versus the risk of? delaying the surgery/procedure. It is not possible to know either the risk of delaying the surgery or procedure or chance of getting an infection with perfect accuracy, but a joint decision was made between the patient and the surgeon/proceduralist ?to proceed at this time with the scheduled surgery/procedure as indicated on the consent form. Coding Level of Care Code Off vis,new,level 4 Diagnoses Palpitations? R00.2 Atypical chest pain? R07.89 Hyperlipidemia? E78.5 Essential hypertension? I10 Bronchitis? J40 Coding Level of Care Code Off vis,new,level 4 Diagnoses Palpitations? R00.2 Atypical chest pain? R07.89 Hyperlipidemia? E78.5 Essential hypertension? I10 Bronchitis? J40 08/11/21 1154 <Electronically signed by Fred Vines MD> Date Fred Vines MD Cosigner Signature: Date (if applicable) CC:? [facility] ~ Assessment & Plan Addt'l Comments Addendum: The patient subsequently underwent further evaluation with an exercise tolerance test/imaging study on 09-06-2021. The results are noted below. Stress Test Report Date: 09-06-2021 Procedure: Pharmacologic stress nuclear imaging study? Indications: Chest pain; palpitations; hyperlipidemia; hypertension Consent: Per the patient Procedure: The patient underwent pharmacologic (Regadenoson 0.4mg ) evaluation with a peak heart rate of 112 beats per minute (71%predicted maximal heart rate) and a peak blood pressure of 142/82 mmHg. The baseline ECG demonstrated normal sinus rhythm.? The peak pharmacologic ECG demonstrated no obvious ECG changes. There were no cardiac dysrhythmias pretest, during pharmacologic infusion, or recovery. There was no complaint of chest discomfort during pharmacologic infusion or recovery. The examination was discontinued secondary to completion of protocol. Impression: 1.? Pharmacologic (Regadenoson) evaluation 2.? Peak pharmacologic ECG with no obvious ECG change. 3.? There were no cardiac dysrhythmias pretest, during pharmacologic infusion, or recovery. 4.? Nuclear images pending Myocardial perfusion imaging study: Technique: The patient was injected with 15.0 millicuries of technetium 99m Cardiolite and subsequently rest SPECT Cardiolite nuclear imaging was obtained in the horizontal long, vertical long, and short axis views. The patient underwent pharmacologic (Regadenoson) evaluation with a peak heart rate of 112 beats per minute (71% percent predicted maximal heart rate) and a peak blood pressure of 142/82 mmHg. The patient was injected with 44.8 millicuries of technetium 99m Cardiolite and subsequently stress SPECT Cardiolite nuclear imaging was obtained in the horizontal long, vertical long, and short axis views.? A gated Cardiolite study at peak stress was obtained. Interpretation: Rest and stress SPECT Cardiolite nuclear imaging status post realignment, normalization, and attenuation correction demonstrate the appearance of body motion during image acquisition, at rest the appearance of relative uniform tracer uptake and myocardial perfusion appearing within normal limits, status post stress and area of diminished myocardial perfusion/tracer uptake in the distal anterior/anteroapical segments.? There is end systolic thickening and brightening.? The gated Cardiolite study demonstrates myocardial thickening and inward wall motion.? The reported LVEF is 73%. Impression: 1.? Rest and stress SPECT Cardiolit nuclear imaging demonstrate myocardial perfusion changes appearing compatible with body motion during image acquisition as well as an area suggestive of an area of stress-induced myocardial ischemia involving portions of the distal anterior/anteroapical segments, however, an element of shifting soft tissue/attenuation artifact from body motion cannot necessarily be excluded. 2.? The gated Cardiolite study reports an LVEF of 73%. The patient's case was discussed and reviewed. Based upon the aforementioned findings it was recommended for the patient to be considered for further evaluation of her coronary anatomy with a diagnostic cardiac catheterization. The procedure and risk were discussed with the patient. She was agreeable to this approach. I have re-examined the patient. There are no clinical changes since date of exam
--- NOTE | 2021-09-27 09:35 | CL.D_ITS ---
Patient Name: DAPHNEY MEADE Study Date: 09/27/2021 Performing: Fred Vines MD Ht: 62.99 inches 160 cm : 1960 Wt: 242.51 lbs 110 kg Age: 61 Gender: female BSA: 2.1 PROCEDURE(S) PERFORMED DC02-(19599)C/COR CLINICAL PROFILE AND INDICATIONS Indications: Suspected CAD Heart Failure: None Stress/Imaging Date: 09/06/2021tress Test with SPECT MPI: Positive Intermediate Risk Angina Classification Anginal Classification w/in 2 Weeks: CCS III CAD Presentations: Other: chest pain; shortness of breath; palpitations CONCLUSIONS Elevated Left Ventricular End Diastolic Pressure RECOMMENDATIONS Risk factor modification Medical therapy DESCRIPTION OF PROCEDURE The patient arrived to the procedure lab. The risks and benefits of the procedure as well as a full d escription of our services here and current unavailability of surgical backup were fully explained to the patient and/or their significant other prior to the catheterization. The Timeout was completed, verifying the correct patient and procedure. The patient's procedural site was prepped and draped in the usual fashion. Local anesthetic was given subcutaneously to right radial region with Lidocaine 2% . Using a modified Seldinger technique, arterial access was obtained via the right radial artery, a 6 Fr sheath was inserted. Left Coronary Artery selective angiography was performed in multiple views u sing a 5 Fr. 4.0 [place] catheter. Right Coronary Artery selective angiography was then performed in mu ltiple views using a 5 Fr. 4.0 [place] catheter. LV to AO pullback pressures were then recorded.The art erial sheath was pulled and a TR Band was applied for hemostasis w/ 10ml air CORONARY ANGIOGRAPHY DOMINANCE: Right Dominant LEFT HEART ASSESSMENT Left Ventricular Ejection Fraction: Not assessed Elevated Left Ventricular End Diastolic Pressure LVEDP: 18 mmHg LEFT MAIN: Angiographically normal LEFT ANTERIOR DESCENDING ARTERY: PROX LAD: Mild luminal irregularities CIRCUMFLEX ARTERY: Angiographically normal RIGHT CORONARY ARTERY: PROX RCA: smooth: eccentric: 25 % Stenosis COMPLICATIONS No Complications PROCEDURE MEDICATIONS Versed 1 mg IV Fentanyl 50 mcg IV Versed 1 mg IV Fentanyl 50 mcg IV Oxygen: 2 L/min via nasal cannula Heparin given IA 09/27/2021 09:09:44 Verapamil 2.5mg, Ntg 100mcgs, 3000 units of Heparin given IA 09/27/2021 09:09:44 SUMMARY OF HEMODYNAMIC DATA Time AIR REST ECG 07:45:19 AO 107/48 (68) SA 09:12:23 LV 155/-9, 23 09:18:57 LV 151/-10, 18 09:19:03 LVp 156/-8, 15 09:19:15 AOp 143/72 (100) 09:19:20 Signed By Fred Vines MD On 09/27/2021 09:35:04 Fred Vines MD
== END 2021-09-27 11:00 | disposition home or self-care (01) ==
LOC: CLSP 07:27
PROVIDERS: Referring Provider Internal Medicine Cardiovascular Disease; Visit Provider Internal Medicine Cardiovascular Disease
DX: R00.2 Palpitations (principal); I10 Essential (primary) hypertension; R06.2 Wheezing; J40 Bronchitis, not specified as acute or chronic; R07.89 Other chest pain; E78.5 Hyperlipidemia, unspecified
CPT/HCPCS: 36415; 80048; 85027; 85610; 85730; 93454; 99152; 99153; J7040; C1769; C1894; Q9967

== ENCOUNTER → 2021-09-29 | Outpatient (CLI) | payer MEDICAID, SELFPAY ==
[2021-09-29 13:23] LABS: Anion Gap 7 (5-15); BUN 20 mg/dL (7-18); BUN/Creat Ratio 24.6 RATIO (10-20); Chloride 101 mmol/L (98-107); Creatinine, Serum 0.81 mg/dL (0.55-1.02); EST Glomerular Filtration Rate 76 mL/min (>60); Est Glom Filt Rate - Afr Amer 91 mL/min (>60); Glucose 222 mg/dL (74-106); Potassium 3.9 mmol/L (3.5-5.1); Sodium Level 137 mmol/L (136-145)
== END | disposition home or self-care (01) ==
LOC: LAB 11:51
PROVIDERS: Visit Provider Internal Medicine Cardiovascular Disease
DX: I25.10 Atherosclerotic heart disease of native coronary artery without angina pectoris (principal); I10 Essential (primary) hypertension; E78.5 Hyperlipidemia, unspecified
CPT/HCPCS: 36415; 80048

== ENCOUNTER 2022-01-13 14:59 | Emergency (ER) | payer MEDICAID, SELFPAY ==
[2022-01-13 15:00] VITALS: BP 158/77; PULSE 99; RESP 18; TEMP 36.6; O2SAT 99; BMI 44.1
--- NOTE | 2022-01-13 15:33 | EDS_ITS ---
HPI History of Present Illness Chief Complaint: Lower Extremity Injury Informant: patient Onset/Context/Timing Onset: Today Context: Sudden Onset Injury: - (started upon sitting down on couch at home) Timing: Continuous Quality: Aching Location: Lumbar (left) Current Severity: Severe Maximum Severity: Severe Worsened by: improves with Movement Relieved by: Remaining Still Associated Symptoms Associated Symptoms: Negative for Numbness, Tingling, Radiation to Right Leg, Radiation to Left Leg, Abdominal Pain, Dysuria, Unable to Ambulate, Urinary Retention, Urinary Incontinence, Constipation or Fecal Incontinence Narrative Narrative: 61-year-old female states she got home from being in her car, she went into her home and sat down on the couch and suddenly had pain in her left low back without radiation. No leg discomfort. No numbness or tingling including in her saddle. No bowel or bladder dysfunction. No falls or major injuries. When she was sitting in her car she had no problems. Movement is making it worse, she is having trouble finding a comfortable addition because it is so uncomfortable. [facility] Medical History Abnormal stress test Atherosclerotic heart disease of [place] coronary artery without angina pectoris Bronchitis COVID-19 Depression Depression Diabetes Essential hypertension Fracture, tibial plateau History of hypertension History of left heart catheterization (LHC) (~09/27/21) Hypertension MRSA (methicillin resistant staph aureus) culture positive Palpitations Type 2 diabetes mellitus Vertigo Home Medications coenzyme Q16-[id number] E 100 mg-5 unit capsule 1 cap PO DAILY SUPPLEMENT 04/14/20 [History Last Taken 04/14/20] ferrous sulfate 325 mg (65 mg iron) tablet 325 mg PO DAILY SUPPLEMENT 04/14/20 [History Last Taken 04/14/20] hydrochlorothiazide 25 mg tablet 25 mg PO DAILY 04/14/20 [History Last Taken 04/14/20] losartan 50 mg tablet 50 mg PO DAILY 04/14/20 [History Last Taken 09/27/21] metformin 1,000 mg tablet 1,000 mg PO BID DM 04/14/20 [History Last Taken 04/14/20] montelukast 10 mg tablet 10 mg PO DAILY 04/14/20 [History Last Taken 04/14/20] multivitamin 1 tab PO DAILY SUPPLEMENT 04/14/20 [History Last Taken 04/14/20] omeprazole 20 mg capsule,delayed release 20 mg PO DAILY GERD 04/14/20 [History Last Taken 04/13/20] sertraline 100 mg tablet 100 mg PO DAILY 04/14/20 [History Last Taken 04/14/20] vitamin B complex-vitamin C-folic acid 0.8 mg tablet 0.8 mg PO DAILY SUPPLEMENT 04/14/20 [History Last Taken 04/14/20] fluticasone propionate 50 mcg/actuation nasal spray,suspension 2 spray intranasal PRN PRN Wheezing 08/03/21 [History Last Taken Unknown] mometasone-formoterol HFA 200 mcg-5 mcg/actuation aerosol inhaler 2 inh inhalation PRN PRN Wheezing 08/03/21 [History Last Taken Unknown] Brain health 1 tablet PO DAILY 08/11/21 [History Last Taken Unknown] ergocalciferol (vitamin D2) 1,250 mcg (50,000 unit) capsule 1,250 mcg PO QWEEK 08/11/21 [History Last Taken Unknown] hydroxyzine pamoate 50 mg capsule 50 mg PO BID 08/11/21 [History Last Taken Unknown] naproxen sodium 220 mg tablet 220 mg PO BID PRN Pain 08/11/21 [History Last Taken Unknown] aspirin 81 mg tablet,delayed release (Adult Low Dose Aspirin) 81 mg PO DAILY 09/13/21 [History Last Taken 09/27/21] atorvastatin 20 mg tablet 20 mg PO QHS #30 tabs 09/27/21 [Rx Last Taken Unknown] hydrocodone-acetaminophen 5-325mg 5mg-325mg 1 tab PO Q6H PRN PRN Pain 2 days #8 TABLETS 01/13/22 [Rx Last Taken Unknown] Allergy/AdvReac Type Severity Reaction Status Date / Time isoniazid Allergy Other Verified 01/13/22 15:00 Family History (Updated 10/19/21 @ 11:53 by Riley Ruiz NP, [employer]) Brother Atrial fibrillation Grandfather Myocardial infarction Grandmother Myocardial infarction Mother Dementia CAD (coronary artery disease) Hypertension Father COPD (chronic obstructive pulmonary disease) Hypertension Cancer Prostate, Colon, Surgical History H/O: hysterectomy Hx of right knee surgery Social History (Updated 10/19/21 @ 11:54 by Riley H Roof SK[employer]TER, [employer]) household members: none current occupational exposures/hazards: No history of recent travel: No Smoking Status: Current every day smoker tobacco type: cigarettes alcohol intake: current alcohol intake frequency: holidays/special occasions only substance use type: does not use caffeine: Yes Type: coffee Number of servings: 5 ROS ROS ED Constitutional Constitutional ED: Denies chills or fever(s) Musculoskeletal Musculoskeletal: Reports extremity pain; Denies neck pain Integumentary Denies Abrasions, rash or wounds Neurologic Neurologic: Denies paresthesias or weakness EXAM Physical Exam Const Vital Signs: 01/13/22 15:00 Temperature 97.9 F Temperature Source Temporal Pulse Rate 99 Respiratory Rate 18 Blood Pressure 158/77 H Blood Pressure Mean 104 Pulse Ox 99 Oxygen Delivery Method Room Air Positive well nourished, well developed and obese General Appearance ED: well developed and NAD Nutritional Appearance: obese Neck full ROM and supple Back/Spine normal ROM and normal to inspection Back/Spine Narrative: Tender in the left cranial aspect of the buttock, below the pelvic brim, consistent with the sacroiliac joint. No palpable nodule, step-off, no midline spinal tenderness, no rashes, exam is limited due to the patient's obesity Extremity normal to inspection and no clubbing, cyanosis or edema Neuro oriented x3, no focal motor deficits and no sensory deficits noted Sensorium / Orientation: alert Psych mental status grossly normal and thought process normal Skin no wounds Rashes: no rashes MDM MDM MDM Narrative Medical decision making narrative: Given the possibility of a minor mechanism of injury, sitting down suddenly starting the pain, I obtained an x-ray of her pelvis since she is tender in the SI joint, has no tenderness in the midline, and no symptoms or signs of a radiculopathy, 1 view on my interpretation is negative/normal. Patient was given a [place] which did help some. I do suspect this is the sacroiliac joint, we discussed things she can try at home, in addition to chiropractor and/or physical therapy consultations if the pain does not resolve over the next couple days, will prescribe a short course of pain medication to use, and she is comfortable this plan going home at this time. Radiography Diagnostic Testing: Clinical Impression(s) from Imaging Studies Pelvis X-Ray 01/13/22 15:48 IMPRESSION: Degenerative changes of the lumbar spine sacroiliac joints and hips, unchanged from the study of 2 years earlier. Electronically Signed: Gavin Bahena DO at 16:07 EDT Reading Location ID and State: [facility] / [place] Tel [phone], Service support , Discharge Plan Triage Chief Complaint: Lower Extremity Injury ED Provider: Tucker Garcia Dx/Rx/DC Orders Clinical Impression: Sacroiliac joint dysfunction of left side Instructions: Understanding Sacroiliac Strain, ED Sacroiliitis Prescriptions: New hydrocodone-acetaminophen [hydrocodone-acetaminophen] 5-325 mg tablet 1 tab PO Q6H PRN PRN (Reason: Pain) 2 Days Qty: 8 0RF No Action Dulera 200-5 mcg/actuation HFA aerosol inhaler 2 inh inhalation PRN PRN (Reason: Wheezing) Label Comments: INHALE 2 PUFFS BY MOUTH TWICE DAILY fluticasone propionate 50 mcg/actuation spray,suspension 2 spray intranasal PRN PRN (Reason: Wheezing) naproxen sodium 220 mg tablet 220 mg PO BID PRN (Reason: Pain) hydroxyzine pamoate 50 mg capsule 50 mg PO BID Brain health 1 tablet PO DAILY ergocalciferol (vitamin D2) 1,250 mcg (50,000 unit) capsule 1,250 mcg PO QWEEK Label Comments: TAKE 1 CAPSULE BY MOUTH ONCE A WEEK aspirin [Adult Low Dose Aspirin] 81 mg tablet,delayed release (DR/EC) 81 mg PO DAILY losartan 50 MG tablet 50 mg PO DAILY sertraline 100 MG tablet 100 mg PO DAILY montelukast 10 MG tablet 10 mg PO DAILY B complex-vitamin C-folic acid 0.8 MG tablet 0.8 mg PO DAILY hydrochlorothiazide 25 MG tablet 25 mg PO DAILY multivitamin 1 EACH tablet 1 tab PO DAILY ferrous sulfate 325 MG tablet 325 mg PO DAILY metformin 1,000 MG tablet 1,000 mg PO BID omeprazole 20 MG capsule 20 mg PO DAILY coenzyme [id number] E 1 EACH capsule 1 cap PO DAILY atorvastatin 20 mg tablet 20 mg PO QHS Qty: 30 12RF Primary Care Provider: Noa Schrader Referrals: [facility] Noa Landry [Primary Care Provider] - 3-5 Days if not improving (and/or chiropractor or physical therapist (may need referral from your PCP for the latter)) Disposition Disposition: Home, Self Care
[2022-01-13] MEDS: HYDROcodone Bitartrate/Apap 5/325 Tablet PO (15:40)
[2022-01-13] MEDS: Orphenadrine 60 MG/2 ML Ampul IM (15:41)
--- NOTE | 2022-01-13 15:48 | RAD_ITS ---
STUDY: X-RAY - PELVIS REASON FOR EXAM: Female, 61 years old. Pain in the left SI joint. TECHNIQUE: One view of the pelvis was obtained. COMPARISON: 02/18/2020. FINDINGS: There is a non-specific bowel gas pattern. Normal visualized soft tissue structures. Degenerative changes of the lower lumbar spine. There is narrowing with cortical sclerosis and osteophyte formation of the sacroiliac joint consistent with degenerative osteoarthritic changes. Normal iliac wings and visualized sacrum. Normal visualized bilateral superior and inferior pubic rami. There are degenerative changes of the pubic symphysis with articular narrowing and sclerosis. Normal ischial tuberosities. Normal visualized right femoral head. Normal right acetabulum. There is mild articular joint space narrowing of the right hip. Normal visualized left femoral head. Normal left acetabulum. There is mild articular joint space narrowing of the left hip. RAD/Pelvis 1 or 2 Views IMPRESSION: Degenerative changes of the lumbar spine sacroiliac joints and hips, unchanged from the study of 2 years earlier. Electronically Signed: Gavin Bahena DO at 16:07 EDT ,
== END 2022-01-13 16:27 | disposition home or self-care (01) ==
PROVIDERS: Emergency Provider Emergency Medicine; Visit Provider Emergency Medicine
DX: M53.3 Sacrococcygeal disorders, not elsewhere classified (principal); E11.9 Type 2 diabetes mellitus without complications; I25.10 Atherosclerotic heart disease of native coronary artery without angina pectoris; Z82.5 Family history of asthma and other chronic lower respiratory diseases; I10 Essential (primary) hypertension; F17.210 Nicotine dependence, cigarettes, uncomplicated
CPT/HCPCS: 72170; 96372; 99283

== ENCOUNTER → 2022-05-19 | Outpatient (CLI) | payer MEDICAID, SELFPAY ==
--- NOTE | 2022-05-19 11:50 | RAD_ITS ---
STUDY: X-RAY - CERVICAL SPINE REASON FOR EXAM: Female, 62 years old. Neck pain. TECHNIQUE: 5 view(s) of the cervical spine were obtained on 7 images. COMPARISON: February 18, 2020. FINDINGS: Osteopenia. Normal anterior atlantoaxial articulation. Normal odontoid process. Normal cervical lordosis. Diffuse uncovertebral and facet sclerosis. Moderate to marked intervertebral disc space narrowing with osteophyte formation at C4-5, C5-6 and C6-7. Anterior bony neural foraminal encroachment at C4-5, C5-6 and C6-7. Normal soft tissues. RAD/Cerv Spine 4 or 5 Views IMPRESSION: Osteopenia with moderate to marked lower cervical spondylosis as described. Electronically Signed: Charlie Price, at 9:47 EST ,
[2022-05-19 12:42] LABS: Hematocrit 39.3 % (37-47); Hemoglobin 12.9 g/dL (12.0-15.0); Mean Corp Hgb Conc 32.8 g/dL (32-36); Mean Corpuscular Hgb 27.2 pg (27.0-32.0); Mean Corpuscular Volume 82.9 fL (81-99); Mean Platelet Vol. 9.6 fl (6.2-12.0); Platelet Count 261 K/mm3 (150-450); RBC Distribution Width CV 15.1 % (11.6-14.6); RBC Distribution Width SD 44.8 fl (35.1-43.9); Red Blood Count 4.74 M/mm3 (4.2-5.4); White Blood Count 9.3 K/mm3 (4.4-11.0)
[2022-05-19 13:15] LABS: ALB/GLOB Ratio 1.2 RATIO (0.9-2.4); AST(SGOT) 13 U/L (15-37); Alanine Aminotransfer ALT/SGPT 22 U/L (13-56); Albumin, Serum 3.8 g/dL (3.2-5.0); Alkaline Phosphatase 118 U/L (45-117); Anion Gap 8 (5-15); BUN 26 mg/dL (7-18); BUN/Creat Ratio 31.1 RATIO (10-20); Calcium,Total 9.5 mg/dL (8.5-10.1); Chloride 102 mmol/L (98-107); Cholesterol 122 mg/dL (200); Creatinine, Serum 0.84 mg/dL (0.55-1.02); EST Glomerular Filtration Rate 73 mL/min (>60); Est Glom Filt Rate - Afr Amer 88 mL/min (>60); Globulin 3.1 g/dL (2.2-4.2); Glucose 119 mg/dL (74-106); High Density Lipoprotein 53 mg/dL; Potassium 3.9 mmol/L (3.5-5.1); Protein, Total 6.9 g/dL (6.4-8.2); Sodium Level 138 mmol/L (136-145); Thyroid Stim Hormone (TSH) 2.38 uIU/mL (0.358-3.74); Triglycerides 133 mg/dL; Very Low Density Lipoprotein 27 mg/dL (5-40)
[2022-05-19 13:34] LABS: Microalbumin,Random Urine 13.6 mg/L (NO RANGE EST.)
== END | disposition home or self-care (01) ==
PROVIDERS: Visit Provider Nurse Practitioner Family
DX: I10 Essential (primary) hypertension (principal); M54.2 Cervicalgia
CPT/HCPCS: 36415; 72050; 80053; 80061; 82043; 84443; 85027

== ENCOUNTER 2022-06-19 13:07 | Outpatient (RCR) | payer MEDICAID, SELFPAY | END 2022-06-30 23:59 | LOC: NS 13:07 | PROVIDERS: Visit Provider Orthopaedic Surgery | DX: Z71.3 Dietary counseling and surveillance (principal); E66.9 Obesity, unspecified; Z68.42 Body mass index [BMI] 45.0-49.9, adult | CPT/HCPCS: 97802 ==

== ENCOUNTER → 2022-07-12 | Outpatient (CLI) | payer MEDICAID, SELFPAY ==
[2022-07-12 09:36] LABS: Hemoglobin 13.4 g/dL (12.0-15.0); Mean Corp Hgb Conc 32.7 g/dL (32-36); Mean Corpuscular Hgb 27.3 pg (27.0-32.0); Mean Corpuscular Volume 83.7 fL (81-99); Mean Platelet Vol. 9.9 fl (6.2-12.0); Platelet Count 301 K/mm3 (150-450); RBC Distribution Width CV 14.3 % (11.6-14.6); RBC Distribution Width SD 43.6 fl (35.1-43.9); White Blood Count 9.2 K/mm3 (4.4-11.0)
[2022-07-12 10:20] LABS: AST(SGOT) 12 U/L (15-37); Alanine Aminotransfer ALT/SGPT 28 U/L (13-56); Albumin, Serum 3.5 g/dL (3.2-5.0); Alkaline Phosphatase 99 U/L (45-117); Anion Gap 6 (5-15); BUN 14 mg/dL (7-18); BUN/Creat Ratio 19.8 RATIO (10-20); Calcium,Total 9.8 mg/dL (8.5-10.1); Chloride 100 mmol/L (98-107); Cholesterol 135 mg/dL (200); Creatinine, Serum 0.71 mg/dL (0.55-1.02); EST Glomerular Filtration Rate 88 mL/min (>60); Est Glom Filt Rate - Afr Amer 107 mL/min (>60); Globulin 3.5 g/dL (2.2-4.2); Glucose 144 mg/dL (74-106); High Density Lipoprotein 67 mg/dL; Potassium 3.9 mmol/L (3.5-5.1); Sodium Level 136 mmol/L (136-145); Thyroid Stim Hormone (TSH) 1.22 uIU/mL (0.358-3.74); Triglycerides 76 mg/dL; Very Low Density Lipoprotein 15 mg/dL (5-40)
== END | disposition home or self-care (01) ==
DX: I10 Essential (primary) hypertension (principal)
CPT/HCPCS: 36415; 80053; 80061; 82043; 84443; 85027

== ENCOUNTER 2022-07-17 09:30 | Outpatient (RCR) | payer MEDICAID, SELFPAY | END 2022-07-30 23:59 | LOC: NS 09:30 | PROVIDERS: Visit Provider Orthopaedic Surgery | DX: Z71.3 Dietary counseling and surveillance (principal); E66.9 Obesity, unspecified; Z68.42 Body mass index [BMI] 45.0-49.9, adult | CPT/HCPCS: 97803 ==

== ENCOUNTER 2022-08-22 09:22 | Outpatient (RCR) | payer MEDICAID, SELFPAY | END 2022-08-30 23:59 | LOC: NS 09:22 | PROVIDERS: Referring Provider Orthopaedic Surgery; Visit Provider Orthopaedic Surgery | DX: Z71.3 Dietary counseling and surveillance (principal); E66.9 Obesity, unspecified; Z68.42 Body mass index [BMI] 45.0-49.9, adult | CPT/HCPCS: 97803 ==

== ENCOUNTER 2022-08-23 12:30 | Outpatient (RCR) | payer MEDICAID, SELFPAY ==
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
--- NOTE | 2022-08-23 15:03 | HP.PTREVAL ---
Dr. Silverio Street MD, It has been my pleasure to treat DAPHNEY MEADE over the last 9 visits for Left Shoulder OA. Please see the progress note below for an update on the physical therapy plan of care! Subjective: Pt. reports having about a 4/10 pain pre treatment today. Pt. had an MRI which she reports having a tear. She reports no much improvement with PT thus far. Pt. reports continued pain with lifting her arm and with upper body dressing. Objective/Function: AROM: L shoulder: flexion 90deg increase NW, abd 90deg increase NW, functional ER C1 aberrant motion, functional IR L5 aberrant motion. PROM: L shoulder: flexion 140deg. abd 110deg, ER at 45deg of abd 60deg, IR at 45deg of abd 30deg. Pt. has increased pain with all active and passive motion limiting further mobility. Pt. had empty end feel with all ROM testing. MMT: L UE: elbow ext 5/5 throughout, flexion 5/5; shoulder: flexion 4-/5 increase NW, abd 4-/5 increase nW, ER 4-/5 increase NW, IR 4+/5 NE, ext 5/5 NE. Plan Plan: Pt. wants to do her exercises on her own at this point in time. I gave her phase III strengthening to complete with orange and yellow bands. Pt. to call in if having issues. Pt. to check back in, in two weeks or earlier if needed. Balance/Gait/Functional tests - Balance/Special Test Scores Quick DASH Score: 47.7250 Goals Goal 1:: Patient will be I with HEP and progression Goal Time Frame: 4-6 Weeks Goal Progress: Progressing Goal 2:: Patient will demo full AROM without pain Goal Time Frame: 4-6 Weeks Goal Progress: Not Progressing Goal 3:: Patient will maintain proper posture t/o to demo increased scap s/s Goal Time Frame: 4-6 Weeks Goal Progress: Progressing Goal 4:: Patient will report 80% improvement Goal Time Frame: 4-6 Weeks Goal Progress: Progressing Anticipated Interventions Patient/Client Instruction: Educate patient on: Benefits of Fitness Program Therapeutic Exercise to Include: Strength training, Endurance training, Coordination, Agility training, Body mechanics, Postural training, Flexibilty training, Gait and locomotor training, Neuromotor development, Passive ROM, Active ROM, Dynamic Lumbar Stabilization, Scapular Strength/Stabilization For the Purpose of:: To improve muscle performance and motor function TENS: Yes Cryotherapy (ice pack, ice massage): Yes Thermo therapy (hot pack): Yes Ultrasound (thermal/non thermal): Yes Please do not hesitate to contact me at [phone] by phone or if you have questions or concerns regarding this new plan of care! Sincerely, STEVE NaylorT
--- NOTE | 2022-10-12 17:09 | HP.PT.NRP ---
Patient Information Patient Information: DAPHNEY MEADE was seen in my office for initial evaluation on 07/18/22. The following Plan of Care was established for this patient: POC Established Initial Frequency: 2x /Week Initial Duration: 4 Weeks Anticipated Interventions Patient/Client Instruction: Educate patient on: Benefits of Fitness Program Therapeutic Exercise to Include: Strength training, Endurance training, Coordination, Agility training, Body mechanics, Postural training, Flexibilty training, Gait and locomotor training, Neuromotor development, Passive ROM, Active ROM, Dynamic Lumbar Stabilization and Scapular Strength/Stabilization For the Purpose of:: To improve muscle performance and motor function TENS: Yes Cryotherapy (ice pack, ice massage): Yes Thermo therapy (hot pack): Yes Ultrasound (thermal/non thermal): Yes Last Seen Last Seen: This patient was last seen in our office . Pertinent comments regarding their Physical therapy will appear below: Pt appropriate to be d/c- had surgery At this point I will be discontinuing this patient from physical therapy. I would be happy to see this patient again in the future if found appropriate by the physician. Thank you! Suzette Salinas DPT Balance/Gait/Functional tests Balance/Special Test Scores Quick DASH Score: [phone]
== END 2022-08-23 19:00 | disposition home or self-care (01) ==
LOC: PT 12:30
PROVIDERS: Referring Provider Orthopaedic Surgery Sports Medicine; Visit Provider Orthopaedic Surgery Sports Medicine
DX: M75.42 Impingement syndrome of left shoulder (principal); M19.012 Primary osteoarthritis, left shoulder
CPT/HCPCS: 97110; 97162; 97164; J2405

== ENCOUNTER 2022-08-28 10:59 | Emergency (ER) | payer MEDICAID, SELFPAY ==
[2022-08-28 11:00] VITALS: BP 127/79; PULSE 95; RESP 18; TEMP 36.3; O2SAT 94; BMI 47.9
--- NOTE | 2022-08-28 11:07 | EDS_ITS ---
HPI History of Present Illness Chief Complaint: Cellulitis [facility] Medical History (Updated 08/28/22 @ 12:[address] Moncho Gutierrez, DO) Abnormal stress test Atherosclerotic heart disease of [place] coronary artery without angina pectoris Bronchitis COVID-19 Depression Depression Diabetes Essential hypertension Fracture, tibial plateau History of hypertension History of left heart catheterization (LHC) (~09/27/21) Hypertension Internal impingement of left shoulder Left rotator cuff tear Left shoulder pain MRSA (methicillin resistant staph aureus) culture positive Palpitations Primary osteoarthritis, left shoulder Type 2 diabetes mellitus Vertigo Home Medications coenzyme [id number] 100 mg-5 unit capsule 1 cap PO DAILY SUPPLEMENT 04/14/20 [History Last Taken 04/14/20] ferrous sulfate 325 mg (65 mg iron) tablet 325 mg PO DAILY SUPPLEMENT 04/14/20 [History Last Taken 04/14/20] hydrochlorothiazide 25 mg tablet 25 mg PO DAILY 04/14/20 [History Last Taken 04/14/20] losartan 50 mg tablet 50 mg PO DAILY 04/14/20 [History Last Taken 09/27/21] metformin 1,000 mg tablet 1,000 mg PO BID DM 04/14/20 [History Last Taken 04/14/20] montelukast 10 mg tablet 10 mg PO DAILY 04/14/20 [History Last Taken 04/14/20] multivitamin 1 tab PO DAILY SUPPLEMENT 04/14/20 [History Last Taken 04/14/20] omeprazole 20 mg capsule,delayed release 20 mg PO DAILY GERD 04/14/20 [History Last Taken 04/13/20] sertraline 100 mg tablet 100 mg PO DAILY 04/14/20 [History Last Taken 04/14/20] vitamin B complex-vitamin C-folic acid 0.8 mg tablet 0.8 mg PO DAILY SUPPLEMENT 04/14/20 [History Last Taken 04/14/20] fluticasone propionate 50 mcg/actuation nasal spray,suspension 2 spray intranasal PRN PRN Wheezing 08/03/21 [History Last Taken Unknown] mometasone-formoterol HFA 200 mcg-5 mcg/actuation aerosol inhaler 2 inh inhalation PRN PRN Wheezing 08/03/21 [History Last Taken Unknown] Brain health 1 tablet PO DAILY 08/11/21 [History Last Taken Unknown] ergocalciferol (vitamin D2) 1,250 mcg (50,000 unit) capsule 1,250 mcg PO QWEEK 08/11/21 [History Last Taken Unknown] hydroxyzine pamoate 50 mg capsule 50 mg PO BID 08/11/21 [History Last Taken Unknown] naproxen sodium 220 mg tablet 220 mg PO BID PRN Pain 08/11/21 [History Last Taken Unknown] aspirin 81 mg tablet,delayed release (Adult Low Dose Aspirin) 81 mg PO DAILY 09/13/21 [History Last Taken 09/27/21] atorvastatin 20 mg tablet 20 mg PO QHS #30 tabs 09/27/21 [Rx Last Taken Unknown] hydrocodone-acetaminophen 5-325mg 5mg-325mg 1 tab PO Q6H PRN PRN Pain 2 days #8 TABLETS 01/13/22 [Rx Last Taken Unknown] mirabegron 25 mg tablet,extended release 24 hr (Myrbetriq) 25 mg PO DAILY 02/10/22 [History Last Taken Unknown] glimepiride 2 mg tablet ea PO 05/24/22 [History Last Taken Unknown] lorazepam 1 mg tablet 1 mg PO DAILY PRN pre MRI #1 TAB 08/11/22 [Rx Last Taken Unknown] benzonatate 100 mg capsule ea PO 08/18/22 [History Last Taken Unknown] prednisone 20 mg tablet ea PO 08/18/22 [History Last Taken Unknown] cephalexin 500 mg capsule 500 mg PO TID #21 caps 08/28/22 [Rx Last Taken Unkn own] sulfamethoxazole 800 mg-trimethoprim 160 mg tablet (Bactrim DS) 1 tab PO BID 7 days #14 tabs 08/28/22 [Rx Last Taken Unknown] Allergy/AdvReac Type Severity Reaction Status Date / Time isoniazid Allergy Other Verified 08/28/22 11:00 Family History Brother Atrial fibrillation Grandfather Myocardial infarction Grandmother Myocardial infarction Mother Dementia CAD (coronary artery disease) Hypertension Father COPD (chronic obstructive pulmonary disease) Hypertension Cancer Prostate, Colon, Surgical History H/O: hysterectomy Hx of right knee surgery Social History household members: none current occupational exposures/hazards: No history of recent travel: No Smoking Status: Current every day smoker tobacco type: cigarettes alcohol intake: current alcohol intake frequency: holidays/special occasions only substance use type: does not use caffeine: Yes Type: coffee Number of servings: 5 EXAM Physical Exam Const Vital Signs: 08/28/22 11:00 08/28/22 11:36 Temperature 97.4 F L Temperature Source Temporal Pulse Rate 95 Respiratory Rate 18 Respiratory Effort Normal Respiratory Pattern Normal Blood Pressure 127/79 H Blood Pressure Mean 95 Pulse Ox 94 Oxygen Delivery Method Room Air [facility] Narrative Medical decision making narrative: HISTORY OF PRESENT ILLNESS: 62-year-old female here with bilateral skin redness. She is concerned she has another episode of cellulitis. States her blood sugars been running in the low 100s. Denies any fever, vomiting, fatigue. REVIEW OF SYSTEMS: Pertinent positives: Skin redness Pertinent negatives: Syncope, fatigue, fever, vomiting PHYSICAL EXAM: Nursing triage notes reviewed, Vital signs reviewed Constitutional: please see mdm Extremities: No edema, compartments are soft Neuro: Intact sensation L1-S1 dermatomal distributions. Intact 5/5 strength in hip flexion (T12-L3). Knee extension (L2-L4). Ankle dorsiflexion (L4-L5). Ankle plantar flexion (S1). Great toe extension (L5). 2+ patellar and Achilles DTRs. Skin: Confluent erythema noted to the left anterior tibia going midway up the tibia, there is about confluent erythema noted in the right medial tibia, no crepitus or bullae fluctuance or induration noted. MEDICAL DECISION MAKING: Chief Complaint: External records reviewed: Seen on 08/11/2022 for left leg cellulitis. Prescribed Keflex for 10 days Factors affecting care: History of type 2 diabetes, obesity Social determinants of health: Never smoker History obtained from others: None Consults: ALL IMAGES HAVE BEEN PERSONALLY REVIEWED AND INTERPRETED BY MYSELF. [facility] Narrative: The patient was hemodynamically stable, afebrile, nontoxic-appearing. Exam consistent with bilateral lower extremity cellulitis. I obtained labs to ascertain that the patient had systemic inflammation. I gave 1 dose of IV vancomycin for MRSA coverage and gram-positive coverage. Labs without evidence of significant systemic inflammation, no evidence of significant anion gap to suggest endorgan hypoperfusion, noted hyperglycemia likely exacerbated by ongoing infection. Patient remained hemodynamically stable. She was offered hospitalization given her age, history of diabetes, relative immunocompromise state and for IV antibiotics. Patient was alert and orient x3 and had capacity to make all medical decisions and chose to be discharged home with oral antibiotics. She was prescribed Keflex and Bactrim for strep and MRSA coverage. The patient was appropriate for discharge home. There is no evidence of necrotizing fasciitis on my exam. Total critical care time today provided was at least 0 minutes. This excludes separately billable procedures. There was a high probability of clinically significant/life threatening deterioration in the patient's condition which required my urgent intervention. Shared decision making: I will have a discussion with the patient and or visitors regarding risk/benefits of further testing or admission. They will be made aware of of the risk/benefits inherent in this decision they will be given the opportunity to voice understanding. Lab Data Attestation: I reviewed the patient's lab results. Lab results narrative: CBC without leukocytosis, severe anemia, no thrombocytopenia. BMP without evidence of significant electrolyte abnormalities, no anion gap, no acute kidney injury. Labs: Laboratory Results - last 24 hr 08/28/22 08/28/22 11:50 11:50 WBC 8.6 RBC 4.66 Hgb 12.7 Hct 38.3 MCV 82.2 MCH 27.3 MCHC 33.2 RDW Std Deviation 42.6 RDW Coeff of Christina 14.5 Plt Count 274 MPV 9.7 Immature Gran % (Auto) 0.800 Neut % (Auto) 71.9 H Lymph % (Auto) 18.9 L [place] % (Auto) 4.9 Eos % (Auto) 2.8 Baso % (Auto) 0.7 Absolute Neuts (auto) 6.2 Absolute Lymphs (auto) 1.62 Nucleated RBC % 0 Sodium 136 Potassium 3.8 Chloride 99 Carbon Dioxide 28.0 Anion Gap 9 BUN 14 Creatinine 0.81 Estim Creat Clear Calc 55.49 Est GFR (MDRD) Af Amer 92 Est GFR (MDRD) Non-Af 76 BUN/Creatinine Ratio 17.3 Glucose 242 H Calcium 9.2 Discharge Plan Triage Chief Complaint: Cellulitis ED Provider: Moncho Gutierrez Dx/Rx/DC Orders Clinical Impression: Cellulitis Instructions: Cellulitis Dc Prescriptions: New cephalexin 500 mg capsule 500 mg PO TID Qty: 21 0RF sulfamethoxazole-trimethoprim [Bactrim DS] 800-160 mg tablet 1 tab PO BID 7 Days Qty: 14 0RF No Action Dulera 200-5 mcg/actuation HFA aerosol inhaler 2 inh inhalation PRN PRN (Reason: Wheezing) Label Comments: INHALE 2 PUFFS BY MOUTH TWICE DAILY fluticasone propionate 50 mcg/actuation spray,suspension 2 spray intranasal PRN PRN (Reason: Wheezing) naproxen sodium 220 mg tablet 220 mg PO BID PRN (Reason: Pain) hydroxyzine pamoate 50 mg capsule 50 mg PO BID Brain health 1 tablet PO DAILY ergocalciferol (vitamin D2) 1,250 mcg (50,000 unit) capsule 1,250 mcg PO QWEEK Label Comments: TAKE 1 CAPSULE BY MOUTH ONCE A WEEK aspirin [Adult Low Dose Aspirin] 81 mg tablet,delayed release (DR/EC) 81 mg PO DAILY Myrbetriq 25 mg tablet extended release 24 hr 25 mg PO DAILY glimepiride 2 mg tablet PO Label Comments: TAKE 1 TABLET BY MOUTH ONCE DAILY IN THE MORNING prednisone 20 mg tablet PO Label Comments: TAKE 2 TABLETS BY MOUTH ONCE DAILY FOR 5 DAYS benzonatate 100 mg capsule PO Label Comments: TAKE 1 CAPSULE BY MOUTH TWICE DAILY NEEDED FOR COUGH losartan 50 MG tablet 50 mg PO DAILY sertraline 100 MG tablet 100 mg PO DAILY montelukast 10 MG tablet 10 mg PO DAILY B complex-vitamin C-folic acid 0.8 MG tablet 0.8 mg PO DAILY hydrochlorothiazide 25 MG tablet 25 mg PO DAILY multivitamin 1 EACH tablet 1 tab PO DAILY ferrous sulfate 325 MG tablet 325 mg PO DAILY metformin 1,000 MG tablet 1,000 mg PO BID omeprazole 20 MG capsule 20 mg PO DAILY coenzyme [id number] 1 EACH capsule 1 cap PO DAILY hydrocodone-acetaminophen [hydrocodone-acetaminophen] 5-325 mg tablet 1 tab PO Q6H PRN PRN (Reason: Pain) 2 Days Qty: 8 0RF atorvastatin 20 mg tablet 20 mg PO QHS Qty: 30 12RF lorazepam 1 mg tablet 1 mg PO DAILY MDD 1 PRN (Reason: pre MRI) Qty: 1 0RF Primary Care Provider: Noa Schrader Referrals: Noa Scharder [Primary Care Provider] - Activity Restrictions/Additional Instructions: Thank you for trusting us with your care today! Please take Tylenol (2 pills, 650 mg), ibuprofen (2 pills, 400 mg) every 6 hours as needed for pain and fever control. Please take antibiotics as prescribed. Please return to the emergency department if your symptoms change or worsen. Specifically if you develop blisters, pain that is worse and not improved after antibiotics. If you cannot tolerate antibiotics by mouth. Please follow with your primary care physician for further outpatient evaluation and management. Disposition Disposition: Home, Self Care
[2022-08-28 12:00] LABS: Absolute Lymphocyte Count 1.62 X10^3/uL (0.83-4.51); Absolute Neutrophil Count 6.2 X10^3/uL (2.0-7.7); Basophil# 0.06 X10^3/uL; Basophil% 0.7 % (0-1); Eosinophil# 0.24 X10^3/uL; Eosinophils% 2.8 % (0-5); Hematocrit 38.3 % (37-47); Hemoglobin 12.7 g/dL (12.0-15.0); Lymphocyte # 1.62 X10^3/ul (0.83-4.51); Lymphocyte % 18.9 % (19-41); Mean Corp Hgb Conc 33.2 g/dL (32-36); Mean Corpuscular Hgb 27.3 pg (27.0-32.0); Mean Corpuscular Volume 82.2 fL (81-99); Mean Platelet Vol. 9.7 fl (6.2-12.0); Monocyte# 0.42 X10^3/uL; Monocyte% 4.9 % (0-10); NRBC Flagged by Analyzer 0 % (0-5); Neutrophil # 6.16 X10^3/uL (2.7-7.7); Neutrophil % 71.9 % (47-70); Platelet Count 274 K/mm3 (150-450); RBC Distribution Width CV 14.5 % (11.6-14.6); RBC Distribution Width SD 42.6 fl (35.1-43.9); Red Blood Count 4.66 M/mm3 (4.2-5.4); White Blood Count 8.6 K/mm3 (4.4-11.0)
[2022-08-28 12:08] LABS: Anion Gap 9 (5-15); BUN 14 mg/dL (7-18); BUN/Creat Ratio 17.3 RATIO (10-20); Calcium,Total 9.2 mg/dL (8.5-10.1); Chloride 99 mmol/L (98-107); Creatinine, Serum 0.81 mg/dL (0.55-1.02); EST Glomerular Filtration Rate 76 mL/min (>60); Est Glom Filt Rate - Afr Amer 92 mL/min (>60); Estimated Creatinine Clearance 55.49 ml/min; Glucose 242 mg/dL (74-106); Potassium 3.8 mmol/L (3.5-5.1); Sodium Level 136 mmol/L (136-145)
[2022-08-28 12:59] VITALS: RESP 16
[2022-08-28 14:00] VITALS: BP 134/85; PULSE 72; RESP 16; TEMP 36.6; O2SAT 97
== END 2022-08-28 14:35 | disposition home or self-care (01) ==
PROVIDERS: Emergency Provider Emergency Medicine; Visit Provider Emergency Medicine
DX: L03.90 Cellulitis, unspecified (principal); E11.9 Type 2 diabetes mellitus without complications; I10 Essential (primary) hypertension; I25.10 Atherosclerotic heart disease of native coronary artery without angina pectoris; F17.210 Nicotine dependence, cigarettes, uncomplicated; Z79.899 Other long term (current) drug therapy; Z79.84 Long term (current) use of oral hypoglycemic drugs; F32.A Depression, unspecified; Z79.82 Long term (current) use of aspirin
CPT/HCPCS: 80048; 85025; 99282; J7040; A4216

== ENCOUNTER 2022-09-01 12:51 | Emergency (ER) | payer MEDICAID, SELFPAY ==
[2022-09-01 12:52] VITALS: BP 174/72; PULSE 103; RESP 18; TEMP 36.9; O2SAT 99; BMI 46.5
--- NOTE | 2022-09-01 13:14 | EX.ED.DYSGE1 ---
HPI <ISAI Mejia - Last Filed: 09/01/22 15:38> History of Present Illness Chief Complaint: Cellulitis Narrative Narrative: Patient presenting today with concerns that she could have a DVT in her lower extremities bilaterally. She reports that she was here on 08/28/2022 due to bilateral swelling and erythema in her legs that she has had now for 3 weeks. She does have a history of cellulitis in her left leg but has never had it bilaterally. She was diagnosed with cellulitis at that time and was in a dose of vancomycin in the emergency department and sent home on Bactrim and Keflex. She reports that her condition has not improved but has gotten slightly worse. She denies a history of edema in her lower extremities or history of heart failure. She went to an urgent care this morning who encouraged her to come to the ED to rule out DVT bilaterally. She denies any prior history of blood clots, she is not on any blood thinners, denies any recent surgery/procedures, but does state that she has been more immobile recently due to knee pain. She denies any fever, chills, chest pain, shortness of breath. PFS <ISAI Mejia - Last Filed: 09/01/22 15:38> [facility] Medical History Abnormal stress test Atherosclerotic heart disease of [place] coronary artery without angina pectoris Bronchitis COVID-19 Depression Depression Diabetes Essential hypertension Fracture, tibial plateau History of hypertension History of left heart catheterization (LHC) (~09/27/21) Hypertension Internal impingement of left shoulder Left rotator cuff tear Left shoulder pain MRSA (methicillin resistant staph aureus) culture positive Palpitations Primary osteoarthritis, left shoulder Type 2 diabetes mellitus Vertigo Home Medications coenzyme [id number] 100 mg-5 unit capsule 1 cap PO DAILY SUPPLEMENT 04/14/20 [History Last Taken 04/14/20] ferrous sulfate 325 mg (65 mg iron) tablet 325 mg PO DAILY SUPPLEMENT 04/14/20 [History Last Taken 04/14/20] hydrochlorothiazide 25 mg tablet 25 mg PO DAILY 04/14/20 [History Last Taken 04/14/20] losartan 50 mg tablet 50 mg PO DAILY 04/14/20 [History Last Taken 09/27/21] metformin 1,000 mg tablet 1,000 mg PO BID DM 04/14/20 [History Last Taken 04/14/20] montelukast 10 mg tablet 10 mg PO DAILY 04/14/20 [History Last Taken 04/14/20] multivitamin 1 tab PO DAILY SUPPLEMENT 04/14/20 [History Last Taken 04/14/20] omeprazole 20 mg capsule,delayed release 20 mg PO DAILY GERD 04/14/20 [History Last Taken 04/13/20] sertraline 100 mg tablet 100 mg PO DAILY 04/14/20 [History Last Taken 04/14/20] vitamin B complex-vitamin C-folic acid 0.8 mg tablet 0.8 mg PO DAILY SUPPLEMENT 04/14/20 [History Last Taken 04/14/20] fluticasone propionate 50 mcg/actuation nasal spray,suspension 2 spray intranasal PRN PRN Wheezing 08/03/21 [History Last Taken Unknown] mometasone-formoterol HFA 200 mcg-5 mcg/actuation aerosol inhaler 2 inh inhalation PRN PRN Wheezing 08/03/21 [History Last Taken Unknown] Brain health 1 tablet PO DAILY 08/11/21 [History Last Taken Unknown] ergocalciferol (vitamin D2) 1,250 mcg (50,000 unit) capsule 1,250 mcg PO QWEEK 08/11/21 [History Last Taken Unknown] hydroxyzine pamoate 50 mg capsule 50 mg PO BID 08/11/21 [History Last Taken Unknown] naproxen sodium 220 mg tablet 220 mg PO BID PRN Pain 08/11/21 [History Last Taken Unknown] aspirin 81 mg tablet,delayed release (Adult Low Dose Aspirin) 81 mg PO DAILY 09/13/21 [History Last Taken 09/27/21] atorvastatin 20 mg tablet 20 mg PO QHS #30 tabs 09/27/21 [Rx Last Taken Unknown] hydrocodone-acetaminophen 5-325mg 5mg-325mg 1 tab PO Q6H PRN PRN Pain 2 days #8 TABLETS 01/13/22 [Rx Last Taken Unknown] mirabegron 25 mg tablet,extended release 24 hr (Myrbetriq) 25 mg PO DAILY 02/10/22 [History Last Taken Unknown] glimepiride 2 mg tablet ea PO 05/24/22 [History Last Taken Unknown] lorazepam 1 mg tablet 1 mg PO DAILY PRN pre MRI #1 TAB 08/11/22 [Rx Last Taken Unknown] benzonatate 100 mg capsule ea PO 08/18/22 [History Last Taken Unknown] prednisone 20 mg tablet ea PO 08/18/22 [History Last Taken Unknown] cephalexin 500 mg capsule 500 mg PO TID #21 caps 08/28/22 [Rx Last Taken Unknown] sulfamethoxazole 800 mg-trimethoprim 160 mg tablet (Bactrim DS) 1 tab PO BID 7 days #14 tabs 08/28/22 [Rx Last Taken Unknown] compress.stocking,knee,reg,lrg (Relief Knee Close Toe Stocking) #2 ea 09/01/22 [Rx Last Taken Unknown] compression socks, large #2 ea 09/01/22 [Rx Last Taken Unknown] Allergy/AdvReac Type Severity Reaction Status Date / Time isoniazid Allergy Other Verified 09/01/22 12:54 Family History Brother Atrial fibrillation Grandfather Myocardial infarction Grandmother Myocardial infarction Mother Dementia CAD (coronary artery disease) Hypertension Father COPD (chronic obstructive pulmonary disease) Hypertension Cancer Prostate, Colon, Surgical History H/O: hysterectomy Hx of right knee surgery Social History household members: none current occupational exposures/hazards: No history of recent travel: No Smoking Status: Current every day smoker tobacco type: cigarettes alcohol intake: current alcohol intake frequency: holidays/special occasions only substance use type: does not use caffeine: Yes Type: coffee Number of servings: 5 ROS <ISAI Mejia - Last Filed: 09/01/22 15:38> ROS ED Constitutional Constitutional ED: Denies chills, fever(s) or sweats Cardiovascular Cardiovascular: Denies chest pain or orthopnea Respiratory/Chest Respiratory/Chest: Denies cough, dyspnea or orthopnea Gastrointestinal Gastrointestinal: Denies abdominal pain, nausea or vomiting Musculoskeletal Musculoskeletal: Reports arthralgias; Denies myalgias Integumentary Denies abscess, Abrasions or rash Neurologic Neurologic: Denies paresthesias or weakness EXAM <ISAI Mejia - Last Filed: 09/01/22 15:38> Physical Exam Const Vital Signs: 09/01/22 12:52 09/01/22 13:05 Temperature 98.5 F Temperature Source Temporal Pulse Rate 103 H Respiratory Rate 18 Respiratory Effort Normal Non-Labored Respiratory Pattern Normal Blood Pressure 174/72 H Blood Pressure Mean 106 Pulse Ox 99 Oxygen Delivery Method Room Air Positive well nourished, well developed and no apparent distress General Appearance ED: well developed HEENT Reports normocephalic and head/scalp atraumatic Mouth ED: Yes moist mucous membranes normal Eyes PERRL and EOMs intact bilaterally Neck full ROM and supple Chest Wall inspection of chest normal Resp normal respiratory effort and clear to auscultation bilaterally Cardio regular rate and regular rhythm GI soft to palpation, non-tender, non-distended and no masses Back/Spine normal ROM and normal to inspection Extremity normal to inspection and full ROM Extremity Narrative: Lower extremity edema below the knees bilaterally that is worse on the left side. Erythema below the knee bilaterally that is worse along the ventral aspect of the lower legs. DP pulses 2+ and equal bilaterally, good capillary refill, sensation intact. Patient does have pain to light touch along the ventral aspect of the lower legs and dorsal aspect of the feet bilaterally. Neuro oriented x3, CN's II-XII intact bilaterally, moves all extremities, no focal motor deficits and no sensory deficits noted Sensorium / Orientation: awake and alert Psych mental status grossly normal and thought process normal Skin no rashes or lesions noted and no wounds <Dr. Emory Hugo MD - Last Filed: 09/02/22 08:08> Physical Exam Const Vital Signs: 09/01/22 12:52 09/01/22 13:05 Temperature 98.5 F Temperature Source Temporal Pulse Rate 103 H Respiratory Rate 18 Respiratory Effort Normal Non-Labored Respiratory Pattern Normal Blood Pressure 174/72 H Blood Pressure Mean 106 Pulse Ox 99 Oxygen Delivery Method Room Air MDM <ISAI Mejia - Last Filed: 09/01/22 15:38> [facility] Narrative Medical decision making narrative: Patient presenting today due to lower extremity edema and erythema that she has had below the knees down bilaterally for the past 3 weeks. She was seen on 08/28 and diagnosed with cellulitis and started on Bactrim and Keflex, she has had no relief of her symptoms and feels like they are slightly worsening. She has had no fevers or chills. She reports a history of diabetes and her blood sugars range from 160s to the 180s. No history of CHF or lower extremity edema. She has been more sedentary recently due to pain in her knees but no history of blood clots. Bilateral lower extremity duplex ultrasounds will be obtained to rule out DVT and are negative. CBC obtained to rule out leukocytosis and is unremarkable. Patient's symptoms are consistent with venous stasis dermatitis, I encouraged her to walk around more, elevate her legs while sitting/lying down, discontinue her antibiotics, and begin using compression socks. I have ordered a prescription for compression stockings. She will be discharged home in stable condition and is comfortable with plan. She does have a follow-up with her PCP on Sunday. I have personally performed a face to face assessment of the patient and have reviewed the MYRIAM Note. I performed a substantive portion of the visit including all aspects of the following. My prasad findings include: History is remarkable for redness of her legs which has not improved in spite of antibiotics. [facility] out. There is no prior history of DVT. Patient does have history of lymphedema. Her swelling is worse at night. She denies fever, chills night sweats. She complains of pain. She denies history of neuropathy. She does have type 2 diabetes, however. She denies fever or chills. She denies night sweats. She denies symptoms of claudication. She denies chest pain. She denies dyspnea or dyspnea on exertion. Exam is the left leg is larger than the right. There is erythematous changes suggestive of cysts venous stasis dermatitis. There is no induration, warmth, lymphangitis or popliteal/inguinal lymphadenopathy. DP pulses palpable and symmetric. There is no tenderness along the distribution of the deep venous system. There is no leg vein distention. Heart is regular without murmur, gallop or rub. Lungs are clear to auscultation. Medical Decision Making since there is asymmetry of the legs we will obtain venous duplex study to rule out DVT. CBC was obtained to assess white count. Suspect her erythema is due to worsening dependent edema. Patient does admit to sitting and standing more and being less active. She does endorse the fact that her swelling is less in the morning which is consistent with lymphedema. Other additions or changes: [None] Lab Data Attestation: I reviewed the patient's lab results. Labs: Laboratory Results - last 24 hr 09/01/22 09/01/22 14:15 15:05 WBC Cancelled 7.7 Corrected WBC Cancelled RBC Cancelled 4.37 Hgb Cancelled 12.2 Hct Cancelled 35.9 L MCV Cancelled 82.2 MCH Cancelled 27.9 MCHC Cancelled 34.0 RDW Std Deviation Cancelled 44.1 H RDW Coeff of Christina Cancelled 14.8 H Plt Count Cancelled 257 MPV Cancelled 9.3 Immature Gran % (Auto) Cancelled 0.300 Neut % (Auto) Cancelled 73.1 H Lymph % (Auto) Cancelled 18.5 L [place] % (Auto) Cancelled 4.7 Eos % (Auto) Cancelled 3.0 Baso % (Auto) Cancelled 0.4 Absolute Neuts (auto) Cancelled 5.6 Absolute Lymphs (auto) Cancelled 1.42 Total Counted Cancelled Neutrophils % (Manual) Cancelled Band Neutrophils % Cancelled Lymphocytes % (Manual) Cancelled Monocytes % (Manual) Cancelled Eosinophils % (Manual) Cancelled Basophils % (Manual) Cancelled Metamyelocytes % Cancelled Myelocytes % Cancelled Promyelocytes % Cancelled Blast Cells % Cancelled Plasma Cell % (Manual) Cancelled Other Cells % Cancelled Nucleated RBC % Cancelled 0 Nucleated RBCs/100 WBC Cancelled Differential Comment Cancelled Diff Path Review Cancelled Hypersegmented Neuts Cancelled Atypical Lymphocytes Cancelled Reactive Lymphocytes Cancelled Smudge Cells Cancelled Toxic Granulation Cancelled Toxic Vacuolation Cancelled Dohle Bodies Cancelled Annabelle Rods Cancelled Platelet Estimate Cancelled Plt Morphology Comment Cancelled RBC Morphology Cancelled Polychromasia Cancelled Hypochromasia Cancelled Poikilocytosis Cancelled Basophilic Stippling Cancelled Anisocytosis Cancelled Microcytosis Cancelled Macrocytosis Cancelled Spherocytes Cancelled Sickle Cells Cancelled Target Cells Cancelled Tear Drop Cells Cancelled Ovalocytes Cancelled Stomatocytes Cancelled Lanza-Chittenden Bodies Cancelled Harvey Cells Cancelled Bite Cells Cancelled Crenated Cell Cancelled Acanthocytes (Spur) Cancelled Rouleaux Cancelled Schistocytes Cancelled Radiography Diagnostic Testing: Clinical Impression(s) from Imaging Studies Venous Doppler Study 09/01/22 13:16 Interpretation Summary No evidence for acute deep venous thrombosis bilateral lower extremities with patent and compressible bilateral great saphenous veins. This examination was noted to be technically difficult secondary to lower extremity swelling bilaterally. Ordering Physician: Mable Trejo Performed By: Talon Duenas RVEdwar <Dr. Emory Hugo MD - Last Filed: 09/02/22 08:08> MDM MDM Narrative Medical decision making narrative: Patient presenting today due to lower extremity edema and erythema that she has had below the knees down bilaterally for the past 3 weeks. She was seen on 08/28 and diagnosed with cellulitis and started on Bactrim and Keflex, she has had no relief of her symptoms and feels like they are slightly worsening. She has had no fevers or chills. She reports a history of diabetes and her blood sugars range from 160s to the 180s. No history of CHF or lower extremity edema. She has been more sedentary recently due to pain in her knees but no history of blood clots. Bilateral lower extremity duplex ultrasounds will be obtained to rule out DVT. I have personally performed a face to face assessment of the patient and have reviewed the MYRIAM Note. I performed a substantive portion of the visit including all aspects of the following. My prasad findings include: History is remarkable for redness of her legs which has not improved in spite of antibiotics. [facility] out. There is no prior history of DVT. Patient does have history of lymphedema. Her swelling is worse at night. She denies fever, chills night sweats. She complains of pain. She denies history of neuropathy. She does have type 2 diabetes, however. She denies fever or chills. She denies night sweats. She denies symptoms of claudication. She denies chest pain. She denies dyspnea or dyspnea on exertion. Exam is the left leg is larger than the right. There is erythematous changes suggestive of cysts venous stasis dermatitis. There is no induration, warmth, lymphangitis or popliteal/inguinal lymphadenopathy. DP pulses palpable and symmetric. There is no tenderness along the distribution of the deep venous system. There is no leg vein distention. Heart is regular without murmur, gallop or rub. Lungs are clear to auscultation. Medical Decision Making since there is asymmetry of the legs we will obtain venous duplex study to rule out DVT. CBC was obtained to assess white count. Suspect her erythema is due to worsening dependent edema. Patient does admit to sitting and standing more and being less active. She does endorse the fact that her swelling is less in the morning which is consistent with lymphedema. Other additions or changes: [None] Lab Data Labs: Laboratory Results - last 24 hr 09/01/22 09/01/22 14:15 15:05 WBC Cancelled 7.7 Corrected WBC Cancelled RBC Cancelled 4.37 Hgb Cancelled 12.2 Hct Cancelled 35.9 L MCV Cancelled 82.2 MCH Cancelled 27.9 MCHC Cancelled 34.0 RDW Std Deviation Cancelled 44.1 H RDW Coeff of Christina Cancelled 14.8 H Plt Count Cancelled 257 MPV Cancelled 9.3 Immature Gran % (Auto) Cancelled 0.300 Neut % (Auto) Cancelled 73.1 H Lymph % (Auto) Cancelled 18.5 L [place] % (Auto) Cancelled 4.7 Eos % (Auto) Cancelled 3.0 Baso % (Auto) Cancelled 0.4 Absolute Neuts (auto) Cancelled 5.6 Absolute Lymphs (auto) Cancelled 1.42 Total Counted Cancelled Neutrophils % (Manual) Cancelled Band Neutrophils % Cancelled Lymphocytes % (Manual) Cancelled Monocytes % (Manual) Cancelled Eosinophils % (Manual) Cancelled Basophils % (Manual) Cancelled Metamyelocytes % Cancelled Myelocytes % Cancelled Promyelocytes % Cancelled Blast Cells % Cancelled Plasma Cell % (Manual) Cancelled Other Cells % Cancelled Nucleated RBC % Cancelled 0 Nucleated RBCs/100 WBC Cancelled Differential Comment Cancelled Diff Path Review Cancelled Hypersegmented Neuts Cancelled Atypical Lymphocytes Cancelled Reactive Lymphocytes Cancelled Smudge Cells Cancelled Toxic Granulation Cancelled Toxic Vacuolation Cancelled Dohle Bodies Cancelled Annabelle Rods Cancelled Platelet Estimate Cancelled Plt Morphology Comment Cancelled RBC Morphology Cancelled Polychromasia Cancelled Hypochromasia Cancelled Poikilocytosis Cancelled Basophilic Stippling Cancelled Anisocytosis Cancelled Microcytosis Cancelled Macrocytosis Cancelled Spherocytes Cancelled Sickle Cells Cancelled Target Cells Cancelled Tear Drop Cells Cancelled Ovalocytes Cancelled Stomatocytes Cancelled Lanza-[place] Bodies Cancelled Kareem Cells Cancelled Bite Cells Cancelled Crenated Cell Cancelled Acanthocytes (Spur) Cancelled Rouleaux Cancelled Schistocytes Cancelled Radiography Diagnostic Testing: Clinical Impression(s) from Imaging Studies Venous Doppler Study 09/01/22 13:16 Interpretation Summary No evidence for acute deep venous thrombosis bilateral lower extremities with patent and compressible bilateral great saphenous veins. This examination was noted to be technically difficult secondary to lower extremity swelling bilaterally. Ordering Physician: Mable Trejo Performed By: Talon Duenas RVEdwar Discharge Plan Triage Chief Complaint: Cellulitis ED Midlevel Provider: Mable Trejo ED Provider: Emory Hugo Dx/Rx/DC Orders Clinical Impression: Venous stasis dermatitis, Dependent edema Instructions: ED Peripheral Edema, Bilateral Prescriptions: New (DME) compression socks, large Misc See Rx Instructions .ROUTE Qty: 2 0RF Rx Instructions: As directed (DME) Relief Knee Close Toe Stocking Misc See Rx Instructions .ROUTE .COMPLEX Qty: 2 0RF Rx Instructions: Keep on during day, remove at night No Action Dulera 200-5 mcg/actuation HFA aerosol inhaler 2 inh inhalation PRN PRN (Reason: Wheezing) Label Comments: INHALE 2 PUFFS BY MOUTH TWICE DAILY fluticasone propionate 50 mcg/actuation spray,suspension 2 spray intranasal PRN PRN (Reason: Wheezing) naproxen sodium 220 mg tablet 220 mg PO BID PRN (Reason: Pain) hydroxyzine pamoate 50 mg capsule 50 mg PO BID [facility] 1 tablet PO DAILY ergocalciferol (vitamin D2) 1,250 mcg (50,000 unit) capsule 1,250 mcg PO QWEEK Label Comments: TAKE 1 CAPSULE BY MOUTH ONCE A WEEK aspirin [Adult Low Dose Aspirin] 81 mg tablet,delayed release (DR/EC) 81 mg PO DAILY Myrbetriq 25 mg tablet extended release 24 hr 25 mg PO DAILY glimepiride 2 mg tablet PO Label Comments: TAKE 1 TABLET BY MOUTH ONCE DAILY IN THE MORNING prednisone 20 mg tablet PO Label Comments: TAKE 2 TABLETS BY MOUTH ONCE DAILY FOR 5 DAYS benzonatate 100 mg capsule PO Label Comments: TAKE 1 CAPSULE BY MOUTH TWICE DAILY NEEDED FOR COUGH losartan 50 MG tablet 50 mg PO DAILY sertraline 100 MG tablet 100 mg PO DAILY montelukast 10 MG tablet 10 mg PO DAILY B complex-vitamin C-folic acid 0.8 MG tablet 0.8 mg PO DAILY hydrochlorothiazide 25 MG tablet 25 mg PO DAILY multivitamin 1 EACH tablet 1 tab PO DAILY ferrous sulfate 325 MG tablet 325 mg PO DAILY metformin 1,000 MG tablet 1,000 mg PO BID omeprazole 20 MG capsule 20 mg PO DAILY coenzyme [id number] E 1 EACH capsule 1 cap PO DAILY hydrocodone-acetaminophen [hydrocodone-acetaminophen] 5-325 mg tablet 1 tab PO Q6H PRN PRN (Reason: Pain) 2 Days Qty: 8 0RF cephalexin 500 mg capsule 500 mg PO TID Qty: 21 0RF sulfamethoxazole-trimethoprim [Bactrim DS] 800-160 mg tablet 1 tab PO BID 7 Days Qty: 14 0RF atorvastatin 20 mg tablet 20 mg PO QHS Qty: 30 12RF lorazepam 1 mg tablet 1 mg PO DAILY MDD 1 PRN (Reason: pre MRI) Qty: 1 0RF Primary Care Provider: [facility] - [facility]-5 Days Activity Restrictions/Additional Instructions: Wear compression socks during the day, remove at night, keep your feet elevated when you are sitting/down. Try to walk around more throughout the day. Disposition Disposition: Home, Self Care Discharge Date/Time: 09/01/22 15:41
--- NOTE | 2022-09-01 13:16 | VDLE_ITS ---
Reason For Study: Bilateral leg swelling RIGHT LEFT GSV is normal. GSV is normal. CFV is compressible, spontaneous, phasic, CFV is compressible, spontaneous, phasic, competent and demonstrates normal competent, and demonstrates normal augmentation. augmentation. FV is compressible, spontaneous, phasic, FV is compressible, spontaneous, phasic, competent and demonstrates normal competent and demonstrates normal augmentation. augmentation. POP V is compressible, spontaneous, phasic, POP V is compressible, spontaneous, phasic, competent and demonstrates normal competent and demonstrates normal augmentation. augmentation. T/P Trunk is compressible. T/P Trunk is compressible. PTV is compressible. PTV is compressible. RT PerV is compressible. LT PerV is compressible. Procedure This is a venous duplex using B-mode, color flow and spectral Doppler. Exam performed in department. The exam was diagnostic. The study was technically difficult due to swelling and edema. A preliminary report was called and/or faxed to Dr. Hugo. VL/Venous Duplex US - David Extrem Interpretation Summary No evidence for acute deep venous thrombosis bilateral lower extremities with p atent and compressible bilateral great saphenous veins. This examination was noted to be technically difficult secondary to lower extremity swelling bilaterally. Ordering Physician: Mable Trejo Performed By: Talon Duenas RVT
--- NOTE | 2022-09-01 14:46 | NURSING ---
PURPLE TOP NEEDS REDRAWN. LAB TO DO IT
[2022-09-01 15:18] LABS: Absolute Lymphocyte Count 1.42 X10^3/uL (0.83-4.51); Absolute Neutrophil Count 5.6 X10^3/uL (2.0-7.7); Basophil# 0.03 X10^3/uL; Basophil% 0.4 % (0-1); Eosinophil# 0.23 X10^3/uL; Hematocrit 35.9 % (37-47); Hemoglobin 12.2 g/dL (12.0-15.0); Lymphocyte # 1.42 X10^3/ul (0.83-4.51); Lymphocyte % 18.5 % (19-41); Mean Corpuscular Hgb 27.9 pg (27.0-32.0); Mean Corpuscular Volume 82.2 fL (81-99); Mean Platelet Vol. 9.3 fl (6.2-12.0); Monocyte# 0.36 X10^3/uL; Monocyte% 4.7 % (0-10); NRBC Flagged by Analyzer 0 % (0-5); Neutrophil # 5.63 X10^3/uL (2.7-7.7); Neutrophil % 73.1 % (47-70); Platelet Count 257 K/mm3 (150-450); RBC Distribution Width CV 14.8 % (11.6-14.6); RBC Distribution Width SD 44.1 fl (35.1-43.9); Red Blood Count 4.37 M/mm3 (4.2-5.4); White Blood Count 7.7 K/mm3 (4.4-11.0)
== END 2022-09-01 15:41 | disposition home or self-care (01) ==
PROVIDERS: Emergency Provider Emergency Medicine; Visit Provider Emergency Medicine
DX: I87.2 Venous insufficiency (chronic) (peripheral) (principal); E11.59 Type 2 diabetes mellitus with other circulatory complications; F17.210 Nicotine dependence, cigarettes, uncomplicated; I25.10 Atherosclerotic heart disease of native coronary artery without angina pectoris; I10 Essential (primary) hypertension; R60.9 Edema, unspecified; Z79.84 Long term (current) use of oral hypoglycemic drugs; Z79.899 Other long term (current) drug therapy; F32.A Depression, unspecified; Z79.51 Long term (current) use of inhaled steroids; Z79.82 Long term (current) use of aspirin; Z90.710 Acquired absence of both cervix and uterus
CPT/HCPCS: 85025; 93970; 99282; A4216

== ENCOUNTER → 2022-09-13 | Outpatient (CLI) | payer MEDICAID, SELFPAY ==
--- NOTE | 2022-09-13 10:45 | RAD_ITS ---
EXAM: XR CHEST, 2 VIEWS CLINICAL INDICATION: PRE PROCEDURE TECHNIQUE: Frontal and lateral views of the chest. COMPARISON: Previous chest radiographs of 08/11/2021 and 02/18/2020. Left shoulder radiograph report of 05/25/2022. FINDINGS: LUNGS AND PLEURAL SPACES: Unremarkable. No consolidation or edema. No pneumothorax. No effusion. HEART: Upper normal heart size with normal pulmonary vasculature. MEDIASTINUM: Minimal elongation of the thoracic aorta. Trachea is midline. No mediastinal widening. BONES/JOINTS: Rounded area of lucency within the medial aspect of both humeral heads, felt be projectional artifact. Mid to lower thoracic degenerative disc space narrowing with large osteophytes and endplate sclerosis. Minimal calcific tendinitis/bursitis of the right shoulder. SOFT TISSUES: Right upper quadrant surgical clips. RAD/Chest PA and Lateral IMPRESSION: No significant interval change. No radiographic evidence of acute cardiopulmonary disease. Electronically Signed: Enrique Ferreira MD at 4:50 EDT ,
[2022-09-13 11:19] LABS: Erythrocyte Sedimentation Rate 10 mm/hr (0-30)
[2022-09-13 11:20] LABS: Hemoglobin 12.6 g/dL (12.0-15.0); Mean Corp Hgb Conc 32.3 g/dL (32-36); Mean Corpuscular Hgb 27.3 pg (27.0-32.0); Mean Corpuscular Volume 84.4 fL (81-99); Mean Platelet Vol. 10.2 fl (6.2-12.0); Platelet Count 303 K/mm3 (150-450); RBC Distribution Width CV 14.8 % (11.6-14.6); RBC Distribution Width SD 45.1 fl (35.1-43.9); Red Blood Count 4.62 M/mm3 (4.2-5.4); White Blood Count 8.6 K/mm3 (4.4-11.0)
[2022-09-13 11:39] LABS: Hemoglobin A1c 6.9 % (3.8-5.6)
[2022-09-13 11:48] LABS: BNP,B-Type NATRIURETIC PEPTIDE 32.2 pg/mL (0-100)
[2022-09-13 11:49] LABS: Microalbumin,Random Urine 15.1 mg/L (NO RANGE EST.)
[2022-09-13 11:58] LABS: ALB/GLOB Ratio 1.1 RATIO (0.9-2.4); AST(SGOT) 15 U/L (15-37); Alanine Aminotransfer ALT/SGPT 23 U/L (13-56); Albumin, Serum 3.7 g/dL (3.2-5.0); Alkaline Phosphatase 101 U/L (45-117); Anion Gap 7 (5-15); BUN 19 mg/dL (7-18); Calcium,Total 9.9 mg/dL (8.5-10.1); Chloride 98 mmol/L (98-107); EST Glomerular Filtration Rate 59 mL/min (>60); Est Glom Filt Rate - Afr Amer 72 mL/min (>60); Globulin 3.5 g/dL (2.2-4.2); Glucose 220 mg/dL (74-106); Potassium 3.2 mmol/L (3.5-5.1); Protein, Total 7.2 g/dL (6.4-8.2); Sodium Level 138 mmol/L (136-145)
== END | disposition home or self-care (01) ==
LOC: LAB 10:24
DX: R60.9 Edema, unspecified (principal); E11.9 Type 2 diabetes mellitus without complications; I10 Essential (primary) hypertension; Z01.818 Encounter for other preprocedural examination
CPT/HCPCS: 36415; 71046; 80053; 82043; 83036; 83880; 85027; 85652; 86140

== ENCOUNTER → 2022-09-18 | Outpatient (CLI) | payer MEDICAID, SELFPAY ==
--- NOTE | 2022-09-18 07:51 | VDLE_ITS ---
Reason For Study: swelling RIGHT LEFT CFV is compressible, spontaneous, phasic, CFV is compressible, spontaneous, phasic, competent and demonstrates normal competent, and demonstrates normal augmentation. augmentation. FV is compressible, spontaneous, phasic, FV is compressible, spontaneous, phasic, competent and demonstrates normal competent and demonstrates normal augmentation. augmentation. POP V is compressible, spontaneous, phasic, POP V is compressible, spontaneous, phasic, competent and demonstrates normal competent and demonstrates normal augmentation. augmentation. T/P Trunk is compressible. T/P Trunk is compressible. PTV is compressible. PTV is compressible. RT PerV is compressible. LT PerV is compressible. SFJ is competent and measures .77 cm. SFJ is competent and measures .68 cm. GSV proximal thigh measures .22 X .25 cm. GSV proximal thigh measures .23 X .26 cm. GSV at knee measures .34 X .34 cm. GSV at knee measures .3 X .32 cm. GSV INCOMPETENT throughout for greater than GSV above knee is competent. 0.5 seconds. GSV below knee is INCOMPETENT for greater SSV proximal calf is competent and than 0.5 seconds. measures .29 X .29 cm. SSV proximal calf is competent and Procedure measures .22 X .22 cm. This is a venous duplex using B-mode, color flow and spectral Doppler. Exam performed in department. The exam was diagnostic. VL/Venous Duplex US - David Extrem Interpretation Summary Deep veins of the bilateral lower extremities are patent and compressible segme ntally. There is no evidence of bilateral lower extremity deep vein thrombosis. The bilateral great saphenous veins appear patent and compressible segmentally. Ordering Physician: Bridgette Ferrer Performed By: Nic Du RVT
--- NOTE | 2022-09-18 07:52 | ECHOD_ITS ---
Reason For Study: EDEMA Procedure This was a 2D Doppler, Color Flow transthoracic echocardiogram. Exam performed in department. Left Ventricle Normal LV size. Mild concentric left ventricular hypertrophy. The left ventricular ejection fraction is 70 %. Stage 2 diastolic dysfunction. Right Ventricle Normal right ventricle. Atria The left atrium is moderately enlarged. The right atrium is mildly enlarged. Mitral Valve Mild mitral annular calcification. Trivial mitral valve insufficiency. Tricuspid Valve Mild tricuspid valve insufficiency. Right ventricular systolic pressure estimated to be 36 mmHg. Aortic Valve Normal aortic valve. Pulmonic Valve The pulmonic valve is not well visualized. Great Vessels Normal sized aortic root. Pericardium/Pleural Trivial pericardial effusion. MMode/2D Measurements & Calculations LVIDd: 5.6 cm IVSd: 1.2 cm Ao root diam: 3.4 cm LVIDs: 4.2 cm LVPWd: 1.1 cm RVDd: 3.1 cm FS: 24.7 % LAV(MOD-bp): 58.7 ml LVAd ap4: 27.3 cm2 SV(MOD-sp4): 53.5 ml LAV(MOD-bp) Indexed: 28.4 ml/m2 LVLd ap4: 7.9 cm LAV(MOD-sp2): 60.0 ml EDV(MOD-sp4): 79.2 ml LAV(MOD-sp4): 56.0 ml EDV(sp4-el): 80.0 ml LVAs ap4: 12.6 cm2 LVLs ap4: 5.7 cm ESV(MOD-sp4): 25.7 ml ESV(sp4-el): 23.7 ml EF(MOD-sp4): 67.5 % EF(sp4-el): 70.4 % SV(sp4-el): 56.4 ml LA A4 area: 20.0 cm2 LA dimension(2D): 4.5 cm RA A4 area: 18.2 cm2 Time Measurements MV dec time: 0.22 sec Doppler Measurements & Calculations MV E max lisandro: 87.8 cm/sec Lat Peak E' Lisandro: 5.0 cm/sec Med Peak E' Lisandro: 4.7 cm/sec MV A max lisandro: 133.5 cm/sec E/E' lat: 17.7 E/E' med: 18.9 MV E/A: 0.66 MV V2 max: 128.0 cm/sec Ao V2 max: 198.0 cm/sec MV max P.6 mmHg MV dec slope: 406.0 cm/sec2 Ao max P.7 mmHg MV V2 mean: 82.7 cm/sec Ao V2 mean: 129.0 cm/sec MV mean P.0 mmHg Ao mean P.8 mmHg MV V2 VTI: 35.9 cm Ao V2 VTI: 38.5 cm AV (velocity ratio): 0.73 LV V1 max: 134.8 cm/sec PA V2 max: 146.5 cm/sec TR max lisandro: 280.4 cm/sec LV V1 max P.3 mmHg PA V2 mean: 85.7 cm/sec TR max P.4 mmHg LV V1 mean P.6 mmHg LV V1 mean: 101.8 cm/sec LV V1 VTI: 28.2 cm ECHO/Echo Complete Interpretation Summary Normal LV size. The left ventricular ejection fraction is 70 %. Stage 2 diastolic dysfunction. The left atrium is moderately enlarged. The right atrium is mildly enlarged. Mild mitral annular calcification. Trivial pericardial effusion. Ordering Physician: Yvrose Tejeda Referring Physician: Bridgette Ferrer Performed By: Lou Patel RCS
== END | disposition home or self-care (01) ==
LOC: CVS 07:49
PROVIDERS: Referring Provider Physician Assistant; Visit Provider Physician Assistant
DX: R60.0 Localized edema (principal)
CPT/HCPCS: 93306; 93970

== ENCOUNTER 2022-09-19 09:12 | Outpatient (RCR) | payer MEDICAID, SELFPAY | END 2022-09-29 23:59 | LOC: NS 09:12 | PROVIDERS: Referring Provider Orthopaedic Surgery; Visit Provider Orthopaedic Surgery | DX: Z71.3 Dietary counseling and surveillance (principal); E66.9 Obesity, unspecified; Z68.42 Body mass index [BMI] 45.0-49.9, adult | CPT/HCPCS: 97803 ==

== ENCOUNTER 2022-09-27 05:31 | Day surgery (SDC) | payer MEDICAID, SELFPAY ==
[2022-09-20 18:11] LABS: Anion Gap 9 (5-15); BUN 17 mg/dL (7-18); BUN/Creat Ratio 19.8 RATIO (10-20); Calcium,Total 10.7 mg/dL (8.5-10.1); Chloride 100 mmol/L (98-107); Creatinine, Serum 0.86 mg/dL (0.55-1.02); EST Glomerular Filtration Rate 71 mL/min (>60); Est Glom Filt Rate - Afr Amer 85 mL/min (>60); Glucose 59 mg/dL (74-106); Sodium Level 138 mmol/L (136-145)
[2022-09-27] VITALS (8 sets, daily range): BP systolic 136–154; BP diastolic 64–89; PULSE 82–95; RESP 10–16; TEMP 36.1–36.2; O2SAT 92–920
[2022-09-27] MEDS: Cefazolin 2 GM in 0.9% Normal Saline 100 ML IV (07:38)
[2022-09-27 07:48] LABS: Bedside Glucose 141 mg/dL (74-106)
[2022-09-27] MEDS: Epinephrine (1 mg/ml) 1 MG/ML VIAL (08:14)
--- NOTE | 2022-09-27 08:57 | PCM.OPRPT ---
Problems Associated Problem List Diagnoses (1) Internal impingement of left shoulder: Report of Operation Date of Procedure: 09/27/22 Pre-Operative Diagnosis: Left shoulder impingement syndrome rotator cuff tear Post-Operative Diagnosis: Same Surgery/Procedure Performed:: Left shoulder arthroscopy subacromial decompression biceps tenotomy debridement rotator cuff tendon Surgeon: Silverio Street Type of Anesthesia: Block,Regional and General Anesthesiologist: Angel Cabrera Estimated Blood Loss (mL): 50 Description of Procedure: Patient brought to the operating room theater. Administered a general anesthetic. 2 g IV Ancef given prior to the start of the procedure. All bony prominences padded. Axillary roll used. Patient transferred to the left side up lateral decubitus beanbag positioner. SCDs on the legs. Arm in 10 pounds of traction with 35 degrees of abduction. Upper extremity prepped and draped in the usual sterile fashion with chlorhexidine-based prep solution allowing over 3 minutes drying time prior to draping. Preoperative timeout performed to confirm the site the patient and the surgery. Began by inserting the arthroscope into the intra-articular portion of the shoulder through a standard posterior portal. There was grade 3-4 changes on the humeral head as well as the glenoid. There is advanced fraying of the labrum circumferentially as well as detachment of the superior aspect of the labrum at the biceps tendon insertion. Inside-out spinal needle localized anterior portal through the rotator interval created. Performed a biceps tenotomy and used shaving instrument to gently debride the remaining stump and labrum to clean that up. There is some small amounts of cartilage and other very small loose bodies that I debrided and cleaned up inside the shoulder as well. Rotator interval was debrided. Subscapularis upper border appeared normal. Undersurface the rotator cuff tendon had some mild synovitis and fraying that I gently debrided but no obvious over 50% thickness tears. I then inserted the arthroscope into the subacromial space. There is quite a bit of adhesive and inflammatory bursitis that I debrided and removed. I performed a subacromial decompression using the sam instrument for about 4 mm thickness at the anterior lateral margin. I probed the full extent of the rotator cuff tendons there is no obvious over 50% thickness tearing again there is some minor fraying gently debrided this but no repair was needed. Pictures were taken and saved onto the system throughout the case. Case terminated arthroscope withdrawn. Wounds thoroughly cleaned wet and dry dressing followed by closure of the portals with 3-0 Monocryl sutures. Skin cleaned with wet and dry dressing followed application of Steri-Strips Adaptic gauze ABD dressings cloth tape and a sling for the upper extremity. Patient woken up from the general anesthetic transferred off the operating room table and taken to postanesthetic care unit in stable condition. All sponge needle instrument counts were correct no complications. Narcotic counseling had been done prior to surgery. Complications none Admit VTE Documentation VTE Present on Admission: No VTE Mechan Device Prophylaxis: SCD's VTE Pharm Prophylaxis ordered?: No Reason prophylaxis not ordered:: Treatment Not Indicated Procedures Musculoskeletal [id number]: Other Procedure See Report
--- NOTE | 2022-09-27 09:03 | EX.PCM.DISCH ---
Discharge Instructions Diet Discharge Diet: No restrictions Activity Keep extremity elevated above heart level: Operative Extremity Additional Activity Instructions:: pendulums 4x/day shoulder Dressing / Incision Call your doctor if your incision/area has: Continuous Slow Oozing, Sudden Increased Bleeding, Increased Pain/ Swelling, Increased Redness, Foul Smelling Discharge and Swelling at the incision site Remove Dressing in: leave in place till F/U Follow Up Care Please Follow Up With: Silverio Street MD When: 2 days Test Results: Test results from this visit will be discussed in further detail at your follow-up appointment, if applicable. Discharge Plan Admission Attending Provider: Silverio Street [facility] Providers: Yvrose Tejeda NP Discharge Orders/Prescriptions Prescriptions: New oxycodone-acetaminophen [Percocet] 5-325 mg tablet 1 tab PO Q6H MDD 6 PRN (Reason: pain) 5 Days Qty: 30 0RF No Action Dulera 200-5 mcg/actuation HFA aerosol inhaler 2 inh inhalation PRN PRN (Reason: Wheezing) Patient Comments: INHALE 2 PUFFS BY MOUTH TWICE DAILY fluticasone propionate 50 mcg/actuation spray,suspension 2 spray intranasal PRN PRN (Reason: Wheezing) naproxen sodium 220 mg tablet 220 mg PO BID PRN (Reason: Pain) hydroxyzine pamoate 50 mg capsule 50 mg PO BID Brain health 1 tablet PO DAILY ergocalciferol (vitamin D2) 1,250 mcg (50,000 unit) capsule 1,250 mcg PO QWEEK Patient Comments: TAKE 1 CAPSULE BY MOUTH ONCE A WEEK aspirin [Adult Low Dose Aspirin] 81 mg tablet,delayed release (DR/EC) 81 mg PO DAILY Myrbetriq 25 mg tablet extended release 24 hr 100 mg PO DAILY glimepiride 2 mg tablet 2 mg PO DAILY Patient Comments: TAKE 1 TABLET BY MOUTH ONCE DAILY IN THE MORNING furosemide 20 mg tablet 20 mg PO DAILY losartan 50 MG tablet 50 mg PO DAILY sertraline 100 MG tablet 150 mg PO DAILY montelukast 10 MG tablet 10 mg PO DAILY multivitamin 1 EACH tablet 1 tab PO DAILY ferrous sulfate 325 MG tablet 325 mg PO DAILY metformin 1,000 MG tablet 1,000 mg PO BID omeprazole 20 MG capsule 20 mg PO DAILY coenzyme Q13-[id number] E 1 EACH capsule 1 cap PO DAILY hydrocodone-acetaminophen [hydrocodone-acetaminophen] 5-325 mg tablet 1 tab PO Q6H PRN PRN (Reason: Pain) 2 Days Qty: 8 0RF (DME) compression socks, large Misc See Rx Instructions .Route Qty: 2 0RF Rx Instructions: As directed (DME) Relief Knee Close Toe Stocking Misc See Rx Instructions .ROUTE .COMPLEX Qty: 2 0RF Rx Instructions: Keep on during day, remove at night trazodone 50 mg tablet 50 mg PO QHS polyethylene glycol 3350 [Miralax] 17 gram Powder In Packet 17 g PO DAILY sennosides-docusate sodium [Senna Laxative-Stool Softener] 8.6-50 mg Tablet 1 tab-cap PO QHS vitamin B complex Tablet 1 tab PO DAILY bupropion HCl 150 mg tablet extended release 24 hr 150 mg PO DAILY Patient Comments: TAKE 1 TABLET BY MOUTH ONCE DAILY IN THE MORNING loratadine 10 mg Capsule 10 mg PO DAILY turmeric 400 mg Capsule 400 mg PO DAILY atorvastatin 20 mg tablet 20 mg PO QHS Qty: 30 12RF Referrals / Follow Up: Silverio Street MD [Med Staff - Active Staff] - [facility] [Primary Care Provider] - Disposition Disposition (needs filled in before D/C Order can be placed): Home, Self Care
[2022-09-27] MEDS: Lactated Ringers 1,000 ML 15 ML IV (09:10)
[2022-09-27] MEDS: HYDROcodone Bitartrate/Apap 5/325 Tablet PO (11:24)
== END 2022-09-27 11:53 | disposition home or self-care (01) ==
LOC: SDC 08:09 → AC 08:10
PROVIDERS: Nurse Practitioner Family; Referring Provider Orthopaedic Surgery Sports Medicine; Visit Provider Orthopaedic Surgery Sports Medicine
PROC: (CPT 29805; principal; 2022-09-27 07:10)
DX: M75.102 Unspecified rotator cuff tear or rupture of left shoulder, not specified as traumatic (principal); J44.9 Chronic obstructive pulmonary disease, unspecified; E11.9 Type 2 diabetes mellitus without complications; I25.10 Atherosclerotic heart disease of native coronary artery without angina pectoris; I10 Essential (primary) hypertension; R05.3 Chronic cough
CPT/HCPCS: 29822; 29826; 01630; 36415; 80048; 82962; 94640; J7120

== ENCOUNTER → 2022-10-10 | Outpatient (CLI) | payer MEDICAID, SELFPAY ==
--- NOTE | 2022-10-10 12:42 | ART_ITS ---
Reason For Study: Aterial Insufficiency Procedure A bilateral lower extremity continuous wave Doppler with analog waveform analysis and ankle brachial indexes. Left Segmental Pressures Left posterior tibial artery = 149mmHg. Left dorsalis pedis artery = 141mmHg. Left digit = 108 mmHg. The left posterior tibial artery waveforms are triphasic. The left dorsalis pedis waveforms are triphasic. Right Segmental Pressures Right brachial= 131mmHg. Right posterior tibial artery = 142mmHg. Right dorsalis pedis artery = 146mmHg. Right digit = 116 mmHg. The right posterior tibial artery waveforms are triphasic. The right dorsalis pedis waveforms are triphasic. Indices The right ankle brachial index by the posterior tibial artery is 1.08. The right ankle brachial index by the dorsalis pedis is 1.11. The right digital-brachial index is 0.89. The left ankle brachial index by the posterior tibial artery is 1.14. The left ankle brachial index by the dorsalis pedis is 1.08. The left digital-brachial index is 0.82. VL/Ankle Brachial Index Interpretation Summary Triphasic Doppler waveforms are noted at ankle level bilaterally. Pulse-volume recordings appear satisfactory at ankle and digital levels bilaterally. Resting ankle-brachial in dices are normal bilaterally. Digital-brachial indices are normal bilaterally. There is no evidence of significant arterial occlusive disease in the lower ext remities bilaterally. Ordering Physician: Yvrose Tejeda Referring Physician: [facility] Performed By: Talon Duenas RVT
== END | disposition home or self-care (01) ==
LOC: CVS 12:42
PROVIDERS: Referring Provider Nurse Practitioner Family; Visit Provider Nurse Practitioner Family
DX: I87.2 Venous insufficiency (chronic) (peripheral) (principal); I77.1 Stricture of artery
CPT/HCPCS: 93922

== ENCOUNTER 2022-10-18 09:31 | Outpatient (RCR) | payer MEDICAID, SELFPAY | END 2022-10-30 23:59 | LOC: NS 09:31 | PROVIDERS: Referring Provider Orthopaedic Surgery; Visit Provider Orthopaedic Surgery | DX: Z71.3 Dietary counseling and surveillance (principal); E66.9 Obesity, unspecified; Z68.42 Body mass index [BMI] 45.0-49.9, adult | CPT/HCPCS: 97803 ==

== ENCOUNTER 2022-11-02 15:24 | Emergency (ER) | payer MEDICAID, SELFPAY ==
[2022-11-02 15:25] VITALS: BP 182/78; PULSE 99; RESP 20; TEMP 36.2; O2SAT 99; BMI 46.3
--- NOTE | 2022-11-02 15:52 | VDLE_ITS ---
Reason For Study: Elevated D-dimer Procedure LEFT This is a venous duplex using B-mode, color GSV is normal. flow and spectral Doppler. CFV is compressible, spontaneous, phasic, Exam performed portable in ED. competent, and demonstrates normal A preliminary report was called and/or faxed augmentation. to Dr. Rivera. FV is compressible, spontaneous, phasic, competent and demonstrates normal augmentation. POP V is compressible, spontaneous, phasic, competent and demonstrates normal augmentation. T/P Trunk is compressible. PTV is compressible. LT PerV is compressible. VL/Venous Duplex US, Unilateral Interpretation Summary Deep veins of the left lower extremity are patent and compressible segmentally. There is no evidence of left lower extremity deep vein thrombosis. The left great saphenous vein alejandra ears patent and compressible segmentally. Ordering Physician: Yamilet Rivera Referring Physician: Yvrose Tejeda Performed By: Rosa Marina RVT
--- NOTE | 2022-11-02 15:52 | CT_ITS ---
STUDY: CTA Chest WO/W Contrast Injection 11/02/2022 5:49 PM REASON FOR EXAM: Female, 62 years old. pain, elevated d-dimer TECHNIQUE: The examination was performed with the intravenous administration of IV 100mL Isovue-370 contrast material. Post-processing of the angiographic images was performed, with axial imaging and 3D reconstruction. MIPS images were obtained. Individualized dose optimization techniques were used for this CT. COMPARISON: 11.23.20. FINDINGS: There are degenerative changes of the shoulders. There is no pneumothorax. There is no demonstrated pleural abnormality. Normal heart and pericardium with no evidence for calcifications of the coronary arteries. Normal mediastinum. Normal hilar regions. Normal pulmonary arteries. There is atherosclerotic calcification of the aortic arch with tortuosity and elongation of the aortic arch and descending thoracic aorta. There are multi-level degenerative changes of the thoracic spine. There are no acute findings of the upper abdomen. CT/CTA Chest W/WO Contrast IMPRESSION: No demonstrated pulmonary embolism or arterial dissection. There are no acute findings. Electronically Signed: Bebeto Nair MD at 17:51 EDT ,
--- NOTE | 2022-11-02 15:53 | EDS_ITS ---
HPI History of Present Illness Chief Complaint: Abn Labs Detail of Chief Complaint: Elevated D-dimer Informant: patient Narrative Narrative: Patient present secondary to elevated D-dimer. She has had left calf pain for at least 2 months. She states she has been seen before for recent venous ultrasound that was negative. She was seen by her PCP again today and they discussed gout and other etiologies for her pain. She was asked to come get blood work and her D-dimer was again noted to be elevated. Patient's uric acid was normal. Her white count is normal. Patient does report pain in the left upper chest, but does report she had left shoulder surgery a month ago. She reports chronic shortness of breath that is actually improving after she quit smoking a month ago. [facility] Medical History (Updated 11/02/22 @ 17:[address] Yamilet Rivera MD) Abnormal stress test Anxiety Arthritis Asthma Atherosclerotic heart disease of [place] coronary artery without angina pectoris Back pain Bronchitis Cardiology follow-up encounter Chronic cough COPD (chronic obstructive pulmonary disease) COVID-19 Depression Diabetes Excessive bleeding Fracture, tibial plateau Gastric reflux History of echocardiogram History of edema History of left heart catheterization (LHC) (~09/27/21) History of stress test Hypertension Internal impingement of left shoulder Left rotator cuff tear Left shoulder pain Leg cramps MRSA (methicillin resistant staph aureus) culture positive Palpitations Post-menopausal Primary osteoarthritis, left shoulder Right hip pain Shortness of breath on exertion Sleep apnea Smoker Syncope Type 2 diabetes mellitus Vertigo Wears dentures Wears glasses Home Medications coenzyme [id number] E 100 mg-5 unit capsule 1 cap PO DAILY SUPPLEMENT 04/14/20 [History Last Taken 04/14/20] ferrous sulfate 325 mg (65 mg iron) tablet 325 mg PO DAILY SUPPLEMENT 04/14/20 [History Last Taken 04/14/20] losartan 50 mg tablet 50 mg PO DAILY 04/14/20 [History Last Taken 09/27/21] metformin 1,000 mg tablet 1,000 mg PO BID DM 04/14/20 [History Last Taken 04/14/20] montelukast 10 mg tablet 10 mg PO DAILY 04/14/20 [History Last Taken 04/14/20] multivitamin 1 tab PO DAILY SUPPLEMENT 04/14/20 [History Last Taken 04/14/20] omeprazole 20 mg capsule,delayed release 20 mg PO DAILY GERD 04/14/20 [History Last Taken 04/13/20] sertraline 100 mg tablet 150 mg PO DAILY 04/14/20 [History Last Taken 04/14/20] fluticasone propionate 50 mcg/actuation nasal spray,suspension 2 spray intranasal PRN PRN Wheezing 08/03/21 [History Last Taken Unknown] mometasone-formoterol HFA 200 mcg-5 mcg/actuation aerosol inhaler 2 inh inhalation PRN PRN Wheezing 08/03/21 [History Last Taken Unknown] Brain health 1 tablet PO DAILY 08/11/21 [History Last Taken Unknown] ergocalciferol (vitamin D2) 1,250 mcg (50,000 unit) capsule 1,250 mcg PO QWEEK 08/11/21 [History Last Taken Unknown] hydroxyzine pamoate 50 mg capsule 50 mg PO BID 08/11/21 [History Last Taken Unknown] naproxen sodium 220 mg tablet 220 mg PO BID PRN Pain 08/11/21 [History Last Taken Unknown] aspirin 81 mg tablet,delayed release (Adult Low Dose Aspirin) 81 mg PO DAILY 09/13/21 [History Last Taken 09/27/21] hydrocodone-acetaminophen 5-325mg 5mg-325mg 1 tab PO Q6H PRN PRN Pain 2 days #8 TABLETS 01/13/22 [Rx Last Taken Unknown] mirabegron 25 mg tablet,extended release 24 hr (Myrbetriq) 100 mg PO DAILY 02/10/22 [History Last Taken Unknown] glimepiride 2 mg tablet 2 mg PO DAILY 05/24/22 [History Last Taken Unknown] compress.stocking,knee,reg,lrg (Relief Knee Close Toe Stocking) #2 ea 09/01/22 [Rx Last Taken Unknown] compression socks, large #2 ea 09/01/22 [Rx Last Taken Unknown] furosemide 20 mg tablet 20 mg PO DAILY 09/08/22 [History Last Taken Unknown] bupropion HCl 150 mg 24 hr tablet, extended release 150 mg PO DAILY 09/20/22 [History Last Taken Unknown] loratadine 10 mg capsule 10 mg PO DAILY 09/20/22 [History Last Taken Unknown] polyethylene glycol 3350 17 gram oral powder packet (Miralax) 17 g PO DAILY 09/20/22 [History Last Taken Unknown] sennosides 8.6 mg-docusate sodium 50 mg tablet 1 tab-cap PO QHS 09/20/22 [History Last Taken Unknown] trazodone 50 mg tablet 50 mg PO QHS 09/20/22 [History Last Taken Unknown] turmeric 400 mg capsule 400 mg PO DAILY 09/20/22 [History Last Taken Unknown] vitamin B complex 1 tab PO DAILY 09/20/22 [History Last Taken Unknown] atorvastatin 20 mg tablet 20 mg PO QHS #90 tabs 10/30/22 [Rx Last Taken Unknown] Allergy/AdvReac Type Severity Reaction Status Date / Time isoniazid Allergy Other Verified 11/02/22 15:25 Family History Brother Atrial fibrillation Grandfather Myocardial infarction Grandmother Myocardial infarction Mother Dementia CAD (coronary artery disease) Hypertension Father COPD (chronic obstructive pulmonary disease) Hypertension Cancer Prostate, Colon, Surgical History H/O: hysterectomy History of cardiac catheterization Hx laparoscopic cholecystectomy Hx of section Hx of eye surgery Hx of right knee surgery Social History (Updated 11/02/22 @ 15:[address] Yamilet Rivera MD) household members: none current occupational exposures/hazards: No history of recent travel: No Smoking Status: Former smoker alcohol intake: current alcohol intake frequency: holidays/special occasions only substance use type: does not use caffeine: Yes Type: coffee Number of servings: 5 ROS ROS ED Constitutional Constitutional ED: Denies chills or fever(s) Eyes Eyes: Denies change in vision or discharge from eye(s) ENT ENT ED: Denies discharge from eye(s), rhinorrhea or sore throat Cardiovascular Cardiovascular: Denies chest pain or palpitations Respiratory/Chest Respiratory/Chest: Denies cough or dyspnea Gastrointestinal Gastrointestinal: Denies abdominal pain, diarrhea, nausea or vomiting Genitourinary Genitourinary ED: Denies difficulty urinating or dysuria Musculoskeletal Musculoskeletal: Reports extremity pain; Denies back pain Integumentary Denies Abrasions or rash Neurologic Neurologic: Denies headache(s) or weakness Psychiatric Psychiatric: Denies anxiety or depression Allergic/Immunologic Allergic/Immunologic ED: Denies lip swelling or urticaria EXAM Physical Exam Const Vital Signs: 11/02/22 15:25 11/02/22 16:25 11/02/22 16:53 Temperature 97.1 F L Temperature Source Temporal Pulse Rate 99 Respiratory Rate 20 H Respiratory Effort Short of Breath Respiratory Pattern Tachypnea Blood Pressure 182/78 H Blood Pressure Mean 112 Pulse Ox 99 96 Oxygen Delivery Method Room Air Room Air Positive well nourished and well developed General Appearance ED: well developed HEENT Reports normocephalic and head/scalp atraumatic Eyes PERRL and EOMs intact bilaterally Neck supple Chest Wall inspection of chest normal Chest Narrative: Mild tenderness to the left upper chest wall near the shoulder. No overlying skin change. No crepitus. Resp normal respiratory effort and clear to auscultation bilaterally Cardio regular rate and regular rhythm GI normal to inspection, nondistended, normoactive bowel sounds Palpation: soft Back/Spine no CVA tenderness Extremity Extremity Narrative: Mild erythema noted to the bilateral lower extremities. No excessive warmth or sign of infection. Skin is sensitive to touch over the lateral left lower leg. No open wounds appreciated. Neuro oriented x3 and no sensory deficits noted Sensorium / Orientation: alert Motor Exam: strength 5/5 throughout Psych mental status grossly normal Skin no wounds MDM MDM MDM Narrative Medical decision making narrative: Labs from earlier today reviewed. D-dimer was elevated at 0.66. BMP was not obtained so that would be obtained at this time to evaluate renal function for CTA. CT of the chest will be obtained to evaluate for PE. Venous ultrasound of the leg will be obtained to evaluate for DVT Lab Data Labs: Laboratory Results - last 24 hr 11/02/22 16:30 Sodium 139 Potassium 3.6 Chloride 101 Carbon Dioxide 32.0 Anion Gap 6 BUN 17 Creatinine 0.81 Estim Creat Clear Calc 58.04 Est GFR (MDRD) Af Amer 91 Est GFR (MDRD) Non-Af 76 BUN/Creatinine Ratio 21.0 H Glucose 198 H Calcium 9.3 Radiography Diagnostic Testing: Clinical Impression(s) from Imaging Studies Chest CTA 11/02/22 15:52 IMPRESSION: No demonstrated pulmonary embolism or arterial dissection. There are no acute findings. Electronically Signed: Bebeto Nair MD at 17:51 EDT , Treatment and Re-Evaluation :: BMP is unremarkable with normal renal function. Glucose is 198. Venous ultrasound of the left lower extremity reveals no evidence of DVT. CTA of the chest reveals no evidence of PE. Test results discussed with the patient. She is reassured with this. She and her primary care physician or I talked about other potential etiologies of her leg pain. She will follow-up as scheduled. Discharge Plan Triage Chief Complaint: Abn Labs ED Provider: Yamilet Rivera Dx/Rx/DC Orders Clinical Impression: Leg pain Instructions: ED Arthralgia Prescriptions: No Action Dulera 200-5 mcg/actuation HFA aerosol inhaler 2 inh inhalation PRN PRN (Reason: Wheezing) Patient Comments: INHALE 2 PUFFS BY MOUTH TWICE DAILY fluticasone propionate 50 mcg/actuation spray,suspension 2 spray intranasal PRN PRN (Reason: Wheezing) naproxen sodium 220 mg tablet 220 mg PO BID PRN (Reason: Pain) hydroxyzine pamoate 50 mg capsule 50 mg PO BID [employer] 1 tablet PO DAILY ergocalciferol (vitamin D2) 1,250 mcg (50,000 unit) capsule 1,250 mcg PO QWEEK Patient Comments: TAKE 1 CAPSULE BY MOUTH ONCE A WEEK aspirin [Adult Low Dose Aspirin] 81 mg tablet,delayed release (DR/EC) 81 mg PO DAILY Myrbetriq 25 mg tablet extended release 24 hr 100 mg PO DAILY glimepiride 2 mg tablet 2 mg PO DAILY Patient Comments: TAKE 1 TABLET BY MOUTH ONCE DAILY IN THE MORNING furosemide 20 mg tablet 20 mg PO DAILY losartan 50 MG tablet 50 mg PO DAILY sertraline 100 MG tablet 150 mg PO DAILY montelukast 10 MG tablet 10 mg PO DAILY multivitamin 1 EACH tablet 1 tab PO DAILY ferrous sulfate 325 MG tablet 325 mg PO DAILY metformin 1,000 MG tablet 1,000 mg PO BID omeprazole 20 MG capsule 20 mg PO DAILY coenzyme [id number] E 1 EACH capsule 1 cap PO DAILY hydrocodone-acetaminophen [hydrocodone-acetaminophen] 5-325 mg tablet 1 tab PO Q6H PRN PRN (Reason: Pain) 2 Days Qty: 8 0RF (DME) compression socks, large Misc See Rx Instructions .Route Qty: 2 0RF Rx Instructions: As directed (DME) Relief Knee Close Toe Stocking Misc See Rx Instructions .ROUTE .COMPLEX Qty: 2 0RF Rx Instructions: Keep on during day, remove at night trazodone 50 mg tablet 50 mg PO QHS polyethylene glycol 3350 [Miralax] 17 gram Powder In Packet 17 g PO DAILY sennosides-docusate sodium [Senna Laxative-Stool Softener] 8.6-50 mg Tablet 1 tab-cap PO QHS vitamin B complex Tablet 1 tab PO DAILY bupropion HCl 150 mg tablet extended release 24 hr 150 mg PO DAILY Patient Comments: TAKE 1 TABLET BY MOUTH ONCE DAILY IN THE MORNING loratadine 10 mg Capsule 10 mg PO DAILY turmeric 400 mg Capsule 400 mg PO DAILY atorvastatin 20 mg tablet 20 mg PO QHS Qty: 90 3RF Primary Care Provider: Yvrose Tejeda NP Referrals: Yvrose Tejeda NP, [facility] [Primary Care Provider] - 1 Week Disposition Disposition: Home, Self Care
[2022-11-02 16:25] VITALS: O2SAT 96
[2022-11-02 16:59] LABS: Anion Gap 6 (5-15); BUN 17 mg/dL (7-18); Calcium,Total 9.3 mg/dL (8.5-10.1); Chloride 101 mmol/L (98-107); Creatinine, Serum 0.81 mg/dL (0.55-1.02); EST Glomerular Filtration Rate 76 mL/min (>60); Est Glom Filt Rate - Afr Amer 91 mL/min (>60); Estimated Creatinine Clearance 58.04 ml/min; Glucose 198 mg/dL (74-106); Potassium 3.6 mmol/L (3.5-5.1); Sodium Level 139 mmol/L (136-145)
[2022-11-02 17:57] VITALS: BP 134/86; PULSE 88; RESP 16; O2SAT 97
[2022-11-02 18:05] VITALS: BP 134/86; PULSE 88; RESP 16; O2SAT 97
== END 2022-11-02 18:24 | disposition home or self-care (01) ==
PROVIDERS: Emergency Provider Emergency Medicine; PCP Nurse Practitioner Family; Visit Provider Emergency Medicine
DX: M79.662 Pain in left lower leg (principal); J44.9 Chronic obstructive pulmonary disease, unspecified; E11.9 Type 2 diabetes mellitus without complications; I10 Essential (primary) hypertension; I25.10 Atherosclerotic heart disease of native coronary artery without angina pectoris; Z87.891 Personal history of nicotine dependence; Z79.899 Other long term (current) drug therapy; Z79.84 Long term (current) use of oral hypoglycemic drugs; K21.9 Gastro-esophageal reflux disease without esophagitis; F32.A Depression, unspecified; Z79.51 Long term (current) use of inhaled steroids; Z79.82 Long term (current) use of aspirin; F41.9 Anxiety disorder, unspecified; Z90.710 Acquired absence of both cervix and uterus; Z90.49 Acquired absence of other specified parts of digestive tract
CPT/HCPCS: 36415; 71275; 80048; 84550; 85025; 85379; 93971; 99283; Q9967; A4216

== ENCOUNTER → 2022-11-02 | Outpatient (CLI) | payer MEDICAID, SELFPAY ==
[2022-11-02 12:30] LABS: Absolute Lymphocyte Count 1.66 X10^3/uL (0.83-4.51); Absolute Neutrophil Count 5.4 X10^3/uL (2.0-7.7); Basophil# 0.05 X10^3/uL; Basophil% 0.6 % (0-1); Eosinophil# 0.35 X10^3/uL; Eosinophils% 4.4 % (0-5); Hematocrit 35.1 % (37-47); Hemoglobin 11.5 g/dL (12.0-15.0); Lymphocyte # 1.66 X10^3/ul (0.83-4.51); Mean Corp Hgb Conc 32.8 g/dL (32-36); Mean Corpuscular Hgb 27.4 pg (27.0-32.0); Mean Corpuscular Volume 83.8 fL (81-99); Mean Platelet Vol. 9.6 fl (6.2-12.0); Monocyte% 5.1 % (0-10); NRBC Flagged by Analyzer 0 % (0-5); Neutrophil # 5.41 X10^3/uL (2.7-7.7); Neutrophil % 68.6 % (47-70); Platelet Count 220 K/mm3 (150-450); RBC Distribution Width CV 14.3 % (11.6-14.6); RBC Distribution Width SD 43.4 fl (35.1-43.9); Red Blood Count 4.19 M/mm3 (4.2-5.4); White Blood Count 7.9 K/mm3 (4.4-11.0)
[2022-11-02 12:50] LABS: D-Dimer Quantitative (DVT/PE) 0.66 FEU/ug/m (0.27-0.49)
[2022-11-02 12:56] LABS: Uric Acid 5.7 mg/dL (2.6-6.0)
== END | disposition home or self-care (01) ==
LOC: LAB 12:03
PROVIDERS: PCP Nurse Practitioner Family; Referring Provider Nurse Practitioner Family; Visit Provider Nurse Practitioner Family
DX: M79.662 Pain in left lower leg (principal)
CPT/HCPCS: 36415; 84550; 85025; 85379

== ENCOUNTER 2022-11-29 09:30 | Outpatient (RCR) | payer MEDICAID, SELFPAY | END 2022-11-30 23:59 | LOC: NS 09:30 | PROVIDERS: PCP Nurse Practitioner Family; Referring Provider Orthopaedic Surgery; Visit Provider Orthopaedic Surgery | DX: Z71.3 Dietary counseling and surveillance (principal); E66.9 Obesity, unspecified; Z68.42 Body mass index [BMI] 45.0-49.9, adult | CPT/HCPCS: 97803 ==

== ENCOUNTER → 2022-12-12 | Outpatient (CLI) | payer MEDICAID, SELFPAY ==
--- NOTE | 2022-12-12 14:03 | BD_ITS ---
STUDY: DUAL ENERGY X-RAY ABSORPTIOMETRY / DXA REASON FOR EXAM: Female, 62 years old. 627.8Menopausal postmenopausal BONE DENSITY REASON FOR EXAM TECHNIQUE: Bone Mineral Density (BMD) measurements of lumbar spine and bilateral hips were obtained. COMPARISON: Comparison is made with prior study dated December 07, 2020. FINDINGS: Lumbar Spine (L1-L4): g/cm2 (1.033) / T-score (-0.4) / Z-score (1.4) Findings are suggestive of normal bone density with a low fracture risk. Left Femur Total: g/cm2 (0.998) / T-score (0.5) / Z-score (1.7) Left Femoral Neck: g/cm2 (0.752) / T-score (-0.9) / Z-score (0.6) Right Femur Total: g/cm2 (0.922) / T-score (-0.2) / Z-score (1.0) Right Femoral Neck: g/cm2 (0.777) / T-score (-0.7) / Z-score (0.8) The T-Scores on the most recent prior examination were: Lumbar Spine (L1-L4): There has been improvement of bone density since the previous examination. Left Femur Total: which represents a worsening of 3.7%. Right Femur Total: which represents a worsening of 4.4%. BD/Dexa Bone Density Study IMPRESSION: The patient is considered normal as outlined below according to World [place] Organization (WHO) criteria with a low fracture risk. There has been worsening of bone density since the previous examination. Reference Information: The T-score is the number of standard deviations above or below the standard which is normal for young adults at their peak bone mineral density. The World Health Organization (WHO) interprets the T-scores as follows: Above -1 Normal bone density Between -1 and -2.5 Osteopenia Equal to / or below -2.5 Osteoporosis As a practical clinical guideline, osteopenia may be graded as follows: Mild -1 through -1.5 Moderate -1.6 through -2.0 Severe -2.1 through -2.4 The Z-score is the number of standard deviations above or below age-matched controls. A Z-score of less than -1.5 would be considered abnormal. References: 1. NIH Osteoporosis and Related Bone Diseases www osteo.org 2. International Society for Clinical Densitometry www iscd.org 3. National Osteoporosis Foundation www nof.org Electronically Signed: Christopher Romeo MD at 13:06 EDT ,
== END | disposition home or self-care (01) ==
LOC: OPBD 13:56
PROVIDERS: PCP Nurse Practitioner Family; Referring Provider Nurse Practitioner Women's Health; Visit Provider Nurse Practitioner Women's Health
DX: Z78.0 Asymptomatic menopausal state (principal)
CPT/HCPCS: 77080

== ENCOUNTER 2022-12-13 10:24 | Outpatient (RCR) | payer MEDICAID, SELFPAY | END 2022-12-30 23:59 | LOC: NS 10:24 | PROVIDERS: PCP Nurse Practitioner Family; Referring Provider Orthopaedic Surgery; Visit Provider Orthopaedic Surgery | DX: Z71.3 Dietary counseling and surveillance (principal); E66.9 Obesity, unspecified; Z68.42 Body mass index [BMI] 45.0-49.9, adult | CPT/HCPCS: 97803 ==

== ENCOUNTER → 2022-12-22 | Outpatient (CLI) | payer MEDICAID, SELFPAY ==
[2022-12-22 09:38] LABS: Hematocrit 36.3 % (37-47); Hemoglobin 11.9 g/dL (12.0-15.0); Mean Corp Hgb Conc 32.8 g/dL (32-36); Mean Corpuscular Hgb 27.2 pg (27.0-32.0); Mean Corpuscular Volume 82.9 fL (81-99); Mean Platelet Vol. 10.1 fl (6.2-12.0); Platelet Count 258 K/mm3 (150-450); RBC Distribution Width CV 14.3 % (11.6-14.6); RBC Distribution Width SD 42.9 fl (35.1-43.9); Red Blood Count 4.38 M/mm3 (4.2-5.4); White Blood Count 8.7 K/mm3 (4.4-11.0)
[2022-12-22 09:58] LABS: Microalbumin,Random Urine < 5.0 mg/L (NO RANGE EST.)
[2022-12-22 10:11] LABS: Hemoglobin A1c 6.9 % (3.8-5.6)
[2022-12-22 10:19] LABS: ALB/GLOB Ratio 1.2 RATIO (0.9-2.4); AST(SGOT) 8 U/L (15-37); Alanine Aminotransfer ALT/SGPT 26 U/L (13-56); Albumin, Serum 3.9 g/dL (3.2-5.0); Alkaline Phosphatase 121 U/L (45-117); Anion Gap 4 (5-15); BUN 16 mg/dL (7-18); BUN/Creat Ratio 19.2 RATIO (10-20); Calcium,Total 9.9 mg/dL (8.5-10.1); Chloride 100 mmol/L (98-107); Cholesterol 134 mg/dL (200); Creatinine, Serum 0.83 mg/dL (0.55-1.02); EST Glomerular Filtration Rate 73 mL/min (>60); Est Glom Filt Rate - Afr Amer 88 mL/min (>60); Globulin 3.3 g/dL (2.2-4.2); Glucose 154 mg/dL (74-106); High Density Lipoprotein 64 mg/dL; Potassium 4.2 mmol/L (3.5-5.1); Protein, Total 7.2 g/dL (6.4-8.2); Sodium Level 136 mmol/L (136-145); Triglycerides 108 mg/dL; Very Low Density Lipoprotein 22 mg/dL (5-40)
== END | disposition home or self-care (01) ==
LOC: LAB 08:18
PROVIDERS: Nurse Practitioner Family
DX: E11.9 Type 2 diabetes mellitus without complications (principal); E78.5 Hyperlipidemia, unspecified
CPT/HCPCS: 36415; 80053; 80061; 82043; 83036; 85027

== ENCOUNTER 2023-01-15 10:30 | Outpatient (RCR) | payer MEDICAID, SELFPAY ==
--- NOTE | 2022-10-12 11:59 | HP.PTEVAL ---
Patient's Visit Information Visit Information Visit Information: DAPHNEY MEADE is a 62 year old F referred to Physical Therapy by Dr. Silverio Street MD with a diagnosis of 09/27- L should arthroscopy subacromial decom biceps tenotomy debride of RTC. Date of Evaluation: 10/12/22 Physical Therapist: Suzette Salinas DPT Visit Plan Frequency: 2-3x /Week Duration: 4 Weeks Plan: Per MD: ROM as Tolerated HEP Given IE: scapular retractions, wall wash flexion, counter walk away flexion Subjective Subjective: Patient reports left shoulder surgery by Dr. Street 09/27/2022- Left shoulder arthroscopy subacromial decompression biceps tenotomy debridement rotator cuff tendon. She wore the sling for 2 days then she got rid of it- stopped taking pain medication a few days ago. Worst in last 48 hours: 6/10 Agg: moving it. Best in last 48 hours: 0/10 Eases: stop doing whatever she is doing- set it down and let it rest. She is not using heat or ice. Pain is located in the anterior shoulder and radiates to the biceps. If she presses on the anterior shoulder it gives her a sharp pain. She is no longer having neck pain and she has full range of motion. Describes the pain in the shoulder and dull and achy- then when she uses it too much it gets more stabbing. Does have some tingling in her hand which is new- it comes and goes- when she uses it too much. She tries to use her hand. Right hand dominate. She is more sedentary- she does not work. She does all of her own cooking and cleaning. She feels that she is 50% back to normal activities- some days she just can't do a lot with it. Sleep: not disturbed- she is just getting back into the bed- but thinks she may go back to the chair due to swelling in her feet. Goals: get back to doing all of her normal ADLs. PMHx/Meds: no change since ortho visit 09/29/22. Objective Objective: Posture: FH, RS- can correct but does not maintain- does guard her left shoulder Gait: decreased arm swing and trunk rotation Sensation: WNL to gross touch Palpation: tender along upper trap, anterior shoulder, bicipital groove and down the biceps. Observation: still has bandage- reports no s/s of infection- does see MD tomorrow for follow up ROM: Cervical: WFL- reports discomfort in the left upper trap- Finger Dexterity: normal, Elbow: Supination: WFL but does report awkward all other motions WFL, Shoulder: AROM: Flexion: 80 Abd: 70 ER: 30 degrees IR: belt line above pocket PROM: Guarded- no change- will take more measurements as pt relaxes and pain lessens AAROM: Flexion: 110 Strength: Scap: fair, Shoulder: 2+/5, Elbow: 3+/5, Membership Sales Manager:Left: 40 Right: 60 Balance/Special Test Scores Quick DASH Score: [phone] Goals Goal 1:: Patient will be I with HEP and progression Goal Time Frame: 4-6 Weeks Goal 2:: Patient will demo full AROM of the left shoulder. Goal Time Frame: 4-6 Weeks Goal 3:: Patient will maintain proper posture t/o tx to demo increased scap s/s Goal Time Frame: 4-6 Weeks Goal 4:: Patient will report 80% improvement Goal Time Frame: 4-6 Weeks Rehabilitation Potential Physical Therapy Diagnosis: Patient presents with hypomobility s/p L should arthroscopy subacromial decom biceps tenotomy debride of RTC. She has decreased ROM, scapular and UE strength/stabilization and muscular endurance leading to poor posture and decreased ability to perform ADL's. Rehabilitation Potential: Good Anticipated Interventions Patient/Client Instruction: Educate patient on: Benefits of Fitness Program Therapeutic Exercise to Include: Strength training, Endurance training, Body mechanics, Postural training, Flexibilty training, Gait and locomotor training, Neuromotor development, Passive ROM, Active ROM, Dynamic Lumbar Stabilization and Scapular Strength/Stabilization For the Purpose of:: To improve muscle performance and motor function Cryotherapy (ice pack, ice massage): Yes Thermo therapy (hot pack): Yes Text: Thank you for the opportunity to evaluate your patient. For Medicare and Medicare HMO plans, please review the plan of care and approve it. It will need to be FAXED BACK to us at [phone] for Medicare purposes. For Medicare only, by signing this I certify the plan of care. Please let me know if there are questions or concerns regarding this plan of care. Physician Signature: Date:
--- NOTE | 2022-11-16 10:47 | HP.PTREVAL ---
Re-Evaluation Intro: Dr. Silverio Street MD, It has been my pleasure to treat DAPHNEY MEADE over the last 9 visits for 09/27- L should arthroscopy subacromial decom biceps tenotomy debride of RTC. Please see the progress note below for an update on the physical therapy plan of care! Subjective Subjective: Motion still rough but improving. No pain at rest. Lifting L UE hurts 8/10 transiently. Lifting against gravity is worse. Objective Objective/Function: 90 active flexion and abduction limited by pain, er 50 and IR to PSIS PROM 135 flexiona dn abduction and 60 er strenfgth is weak in elevation and painful, er 3+ and slight pain, IR 4 and no pain. Improving, pain holding back , appropriate to cotninue Plan Plan Plan: 2x/week for 4-6 week for strengthening progression, take care with biceps, Pt doing phase 3 shoulder via HEP ...work toward I program at [employer] fitness to tolerance. Continue PROM , end range stretches each session. Balance/Gait/Functional tests Balance/Special Test Scores Quick DASH Score: 31.8175 Goals Goals Goal 1:: Patient will be I with HEP and progression Goal Time Frame: 4-6 Weeks Goal Progress: Progressing Goal 2:: Patient will demo full AROM of the left shoulder. Goal Time Frame: 4-6 Weeks Goal 3:: Patient will maintain proper posture t/o tx to demo increased scap s/s Goal Time Frame: 4-6 Weeks Goal Progress: Goal Met Goal 4:: Patient will report 80% improvement Goal Time Frame: 4-6 Weeks Goal Progress: 50% Goal 5:: 130 aROM elevation to help with ADLs Goal Time Frame: 4-6 Weeks Goal Progress: NEW GOAL Anticipated Interventions Anticipated Interventions Patient/Client Instruction: Educate patient on: Benefits of Fitness Program Therapeutic Exercise to Include: Strength training, Endurance training, Body mechanics, Postural training, Flexibilty training, Gait and locomotor training, Neuromotor development, Passive ROM, Active ROM, Dynamic Lumbar Stabilization and Scapular Strength/Stabilization For the Purpose of:: To improve muscle performance and motor function Cryotherapy (ice pack, ice massage): Yes Thermo therapy (hot pack): Yes Re-Evaluation Ending Re-evaluation ending: Please do not hesitate to contact me at [phone] by phone or if you have questions or concerns regarding this new plan of care! Sincerely, Jerry Napoles, DPT, OCS, CSCS
--- NOTE | 2022-12-18 11:55 | HP.PTREVAL_ITS ---
Re-Evaluation Intro: Dr. Silverio Street MD, It has been my pleasure to treat DAPHNEY MEADE over the last 15 visits for 09/27- L should arthroscopy subacromial decom biceps tenotomy debride of RTC. Please see the progress note below for an update on the physical therapy plan of care! Subjective Subjective: Patient reports that its getting a little better but she is a wimp when it comes to pain. Pain at its worst was in therapy with wall washes and had a zinger- but the pain subsided. Sleep is so/so. She normally sleeps on her right side but its uncomfortable and aches- so she is trying to sleep on her back. Patient feels that she would like to continue PT if we feel that it is necessary. She goes back to see the MD in the next few weeks. Objective Objective/Function: Posture: FH, RS- mild guarding of the left UE Gait: good arm swing and trunk rotation Palpation: mild tender along bicipital groove Left Shoulder AROM: Flexion: 110 degrees Abd: 100 degrees IR: belt line, ER: 90 degrees Strength: 4/5 isometric- mild soreness with all motions- elbow: 4+/5 PROM 135 flexiona dn abduction and 60 er Improving, pain holding back , appropriate to continue Plan Plan Plan: 2x/week for 4-6 week for strengthening progression, take care with biceps, Pt doing phase 3 shoulder via HEP ...work toward I program at [employer] fitness to tolerance. Continue PROM , end range stretches each session. Balance/Gait/Functional tests Balance/Special Test Scores Quick DASH Score: 34.0900 Goals Goals Goal 1:: Patient will be I with HEP and progression Goal Time Frame: 4-6 Weeks Goal Progress: Progressing Goal 2:: Patient will demo full AROM of the left shoulder. Goal Time Frame: 4-6 Weeks Goal 3:: Patient will maintain proper posture t/o tx to demo increased scap s/s Goal Time Frame: 4-6 Weeks Goal Progress: Goal Met Goal 4:: Patient will report 80% improvement Goal Time Frame: 4-6 Weeks Goal Progress: 50% Goal 5:: 130 aROM elevation to help with ADLs Goal Time Frame: 4-6 Weeks Goal Progress: NEW GOAL Anticipated Interventions Anticipated Interventions Patient/Client Instruction: Educate patient on: Benefits of Fitness Program Therapeutic Exercise to Include: Strength training, Endurance training, Body mechanics, Postural training, Flexibilty training, Gait and locomotor training, Neuromotor development, Passive ROM, Active ROM, Dynamic Lumbar Stabilization and Scapular Strength/Stabilization For the Purpose of:: To improve muscle performance and motor function Cryotherapy (ice pack, ice massage): Yes Thermo therapy (hot pack): Yes Re-Evaluation Ending Re-evaluation ending: Please do not hesitate to contact me at [phone] by phone or if you have questions or concerns regarding this new plan of care! Sincerely, STEVE OsmanT
--- NOTE | 2023-01-15 10:47 | HP.PTDCSUM ---
Discharge Summary D/C summary: It has been my pleasure to treat DAPHNEY MEADE referred by Dr. Silverio Street MD, with the diagnosis of 09/27- L should arthroscopy subacromial decom biceps tenotomy debride of RTC for a total of 20 visit(s). Discharge Date: Please see the following information for a summary of their discharge status. Subjective Subjective: Patient reports that she has a lot of pain in the anterior shoulder currently a 1/10 but when she moves it its a 7/10. She does not have an apt to go back to the MD for awhile. She feels that its really stiff in the AM when she gets up in the AM- she is really frustrated with the shoulder. She feels like the shoulder may have been better prior to surgery- it might have been painful but she felt like she had better mobility. Once she gets to sleep- [place] she is normally able to stay asleep. Pain Left Shoulder: Pain Intensity (Out of 10): 1 Overall Improvement % Improvement: 0 Objective Objective/Function: Posture: forward head, rounded shoulders- mild guarding of the left UE Gait: good arm swing and trunk rotation Palpation: severe tender along bicipital groove Left Shoulder AROM: Flexion: 130 degrees with severe pain at end range and slow movements Abd: 50 degrees IR: belt line, ER:50 degrees Strength: 4/5 isometric- mild soreness with all motions- elbow: 4+/5 Goals Goal 1:: Patient will be I with HEP and progression Goal Progress: Progressing Goal 2:: Patient will demo full AROM of the left shoulder. Goal Progress: Progressing Goal 3:: Patient will maintain proper posture t/o tx to demo increased scap s/s Goal Progress: Goal Met Goal 4:: Patient will report 80% improvement Goal Progress: 50% Goal 5:: 130 aROM elevation to help with ADLs Goal Progress: NEW GOAL Plan Plan: 01/15/23: Return to MD for further evaluation- severe pain with all mobility- limiting progression 2x/week for 4-6 week for strengthening progression, take care with biceps, Pt doing phase 3 shoulder via HEP ...work toward I program at [employer] to tolerance. Continue PROM , end range stretches each session. D/C Information d/c sentence: If there are questions or concerns regarding this patient's physical therapy, please feel free to call me at [phone]. Thank you for the referral of this patient. Sincerely, Suzette Salinas, DPT Balance/Gait/Functional tests Balance/Special Test Scores Quick DASH Score: 36.3625 Improvement % Improvement: 0
== END 2023-01-15 13:55 | disposition home or self-care (01) ==
LOC: PT 10:30
PROVIDERS: Referring Provider Orthopaedic Surgery Sports Medicine; Visit Provider Orthopaedic Surgery Sports Medicine
DX: M25.512 Pain in left shoulder (principal)
CPT/HCPCS: 97110; 97140; 97162; 97164

== ENCOUNTER → 2023-02-28 | Outpatient (CLI) | payer MEDICAID, SELFPAY ==
--- NOTE | 2023-02-28 07:23 | MRI_ITS ---
STUDY: MRI LEFT SHOULDER REASON FOR EXAM: Female, 62 years old. Assess for new rotator cuff tear or other post surgical issues. TECHNIQUE: Standardized fat and water weighted pulse sequences were obtained in all 3 orthogonal planes. COMPARISON: Left shoulder radiographs dated 02/08/2023. FINDINGS: There is supraspinatus, infraspinatus, and subscapularis tendinosis without a full-thickness tear. Normal teres minor tendon. Normal supraspinatus muscle. Normal infraspinatus muscle. Normal subscapularis muscle. Normal teres minor muscle. There is glenohumeral arthrosis with joint space narrowing, marginal osteophyte formation, and moderate to high-grade chondromalacia. There is overall degeneration of the glenoid labrum. There is a small glenohumeral joint effusion with mild synovitis. Intact humeral head and visualized proximal humerus. There is a suspected tear of the intracapsular long biceps tendon. There is hypertrophic acromioclavicular arthrosis, with inferior osteophyte formation, with mild effacement of the supraspinatus myotendinous junction (coronal PD series 4 images 11-12). There is a Type II morphology (curved), with a neutral orientation. There is no significant subacromial-subdeltoid bursal fluid. Normal visualized coracohumeral and coracoacromial ligaments. Normal quadrilateral space. Normal axillary space. Normal deltoid muscle. Normal trapezius muscle. MRI/Upper Ext Joint Only(Routine) IMPRESSION: Supraspinatus, infraspinatus, and subscapularis tendinosis without a full-thickness rotator cuff tear. Hypertrophic acromioclavicular arthrosis, with inferior osteophyte formation, with mild effacement of the supraspinatus myotendinous junction. Glenohumeral arthrosis with overall degeneration of the glenoid labrum. Small glenohumeral joint effusion with mild synovitis. Electronically Signed: Dilan Sam MD at 12:39 EST ,
== END | disposition home or self-care (01) ==
LOC: MRI 07:16
PROVIDERS: Referring Provider Orthopaedic Surgery Sports Medicine; Visit Provider Orthopaedic Surgery Sports Medicine
DX: M75.42 Impingement syndrome of left shoulder (principal); M19.012 Primary osteoarthritis, left shoulder
CPT/HCPCS: 73221

== ENCOUNTER → 2023-03-17 | Outpatient (CLI) | payer MEDICARE, SELFPAY ==
--- NOTE | 2023-03-17 08:48 | CT_ITS ---
EXAM: CT LEFT UPPER EXTREMITY WITHOUT INTRAVENOUS CONTRAST CLINICAL INDICATION: for surgical planning reverse shoulder replacement TECHNIQUE: Helically acquired images were obtained of the left upper extremity without intravenous contrast. 2-D reformats were performed by the technologist. This CT exam was performed using one or more of the following dose reduction techniques: automated exposure control, adjustment of the mA and/or kV according to patient size, and/or use of iterative reconstruction technique. RADIATION DOSE: CTDIvol = 51.34 mGy, DLP = 1212.20 mGy-cm COMPARISON: No relevant prior studies available. FINDINGS: BONES/JOINTS: Degenerative changes in the left shoulder. No acute fracture. No subluxation. Normal alignment. SOFT TISSUES: Unremarkable. No soft tissue swelling or gas. No radiopaque foreign body. CT/Extremity Upper without Contra IMPRESSION: Degenerative changes left shoulder. Electronically Signed: Lucas Toro MD at 6:29 EST ,
== END | disposition home or self-care (01) ==
PROVIDERS: Referring Provider Orthopaedic Surgery Sports Medicine; Visit Provider Orthopaedic Surgery Sports Medicine
DX: M19.012 Primary osteoarthritis, left shoulder (principal)
CPT/HCPCS: 73200

== ENCOUNTER → 2023-06-28 | Outpatient (CLI) | payer MEDICARE, SELFPAY ==
[2023-06-28 13:35] LABS: Hematocrit 31.7 % (37-47); Hemoglobin 9.4 g/dL (12.0-15.0); Mean Corp Hgb Conc 29.7 g/dL (32-36); Mean Corpuscular Hgb 21.9 pg (27.0-32.0); Mean Corpuscular Volume 73.9 fL (81-99); Mean Platelet Vol. 9.5 fl (6.2-12.0); Platelet Count 375 K/mm3 (150-450); RBC Distribution Width CV 17.2 % (11.6-14.6); RBC Distribution Width SD 45.8 fl (35.1-43.9); Red Blood Count 4.29 M/mm3 (4.2-5.4); White Blood Count 8.4 K/mm3 (4.4-11.0)
[2023-06-28 13:50] LABS: ALB/GLOB Ratio 1.1 RATIO (0.9-2.4); AST(SGOT) 13 U/L (15-37); Alanine Aminotransfer ALT/SGPT 21 U/L (13-56); Albumin, Serum 3.8 g/dL (3.2-5.0); Alkaline Phosphatase 107 U/L (45-117); Anion Gap 4 (5-15); BUN 16 mg/dL (7-18); Calcium,Total 9.4 mg/dL (8.5-10.1); Chloride 102 mmol/L (98-107); Cholesterol 127 mg/dL (200); Creatinine, Serum 0.84 mg/dL (0.55-1.02); EST Glomerular Filtration Rate 72 mL/min (>60); Est Glom Filt Rate - Afr Amer 87 mL/min (>60); Globulin 3.4 g/dL (2.2-4.2); Glucose 148 mg/dL (74-106); High Density Lipoprotein 62 mg/dL; Potassium 3.7 mmol/L (3.5-5.1); Protein, Total 7.2 g/dL (6.4-8.2); Sodium Level 137 mmol/L (136-145); Triglycerides 65 mg/dL; Very Low Density Lipoprotein 13 mg/dL (5-40)
[2023-06-28 16:31] LABS: Microalbumin,Random Urine < 5.0 mg/L (NO RANGE EST.)
[2023-07-02 11:23] LABS: Iron 20 ug/dL (50-170); Iron Binding Capacity,Total 440 ug/dL (250-450); PERCENT IRON SATURATION 4.5 % (15.0-55.0)
== END | disposition home or self-care (01) ==
LOC: LAB 13:01
PROVIDERS: Referring Provider Nurse Practitioner Family; Visit Provider Nurse Practitioner Family
DX: E11.9 Type 2 diabetes mellitus without complications (principal); E78.5 Hyperlipidemia, unspecified; D64.9 Anemia, unspecified
CPT/HCPCS: 36415; 80053; 80061; 82043; 83540; 83550; 85027

== ENCOUNTER → 2023-07-05 | Outpatient (CLI) | payer MEDICARE, SELFPAY | END | disposition home or self-care (01) | LOC: LABSPEC 12:54 | PROVIDERS: PCP Nurse Practitioner Family; Referring Provider Nurse Practitioner Family; Visit Provider Nurse Practitioner Family | DX: D64.9 Anemia, unspecified (principal) | CPT/HCPCS: 82274 ==

== ENCOUNTER 2023-07-25 14:49 | Observation (INO) | payer MEDICARE, SELFPAY ==
--- NOTE | 2023-07-05 10:35 | EKG12_ITS ---
Test Reason : PRE-OP Blood Pressure : / mmHG Vent. Rate : 088 BPM Atrial Rate : 088 BPM P-R Int : 174 ms QRS Dur : 086 ms QT Int : 360 ms P-R-T Axes : 055 006 060 degrees QTc Int : 435 ms Normal sinus rhythm Normal ECG Confirmed by ANDRES WIN, GREG ([id number]), movie editor TYRA CRAWFORD ([id number]) on 07/06/2023 9:15:36 AM Referred By: Silverio Street Confirmed By:GREG CAMPOS MD
[2023-07-05 11:41] LABS: Absolute Lymphocyte Count 1.56 X10^3/uL (0.83-4.51); Absolute Neutrophil Count 4.8 X10^3/uL (2.0-7.7); Basophil# 0.05 X10^3/uL; Basophil% 0.7 % (0-1); Eosinophil# 0.26 X10^3/uL; Eosinophils% 3.7 % (0-5); Hematocrit 33.3 % (37-47); Hemoglobin 9.8 g/dL (12.0-15.0); Lymphocyte # 1.56 X10^3/ul (0.83-4.51); Lymphocyte % 22.3 % (19-41); Mean Corp Hgb Conc 29.4 g/dL (32-36); Mean Corpuscular Hgb 21.6 pg (27.0-32.0); Mean Corpuscular Volume 73.5 fL (81-99); Mean Platelet Vol. 9.5 fl (6.2-12.0); Monocyte# 0.37 X10^3/uL; Monocyte% 5.3 % (0-10); NRBC Flagged by Analyzer 0 % (0-5); Neutrophil # 4.76 X10^3/uL (2.7-7.7); Neutrophil % 67.9 % (47-70); Platelet Count 353 K/mm3 (150-450); RBC Distribution Width CV 17.2 % (11.6-14.6); RBC Distribution Width SD 45.8 fl (35.1-43.9); Red Blood Count 4.53 M/mm3 (4.2-5.4)
[2023-07-05 11:48] LABS: Prothrombin Time (Protime)PT. 12.9 SECONDS (11.7-14.9)
[2023-07-05 11:50] LABS: Partial Thromboplast Time 27.3 Seconds (24.1-36.2)
[2023-07-05 12:15] LABS: Magnesium 1.7 mg/dL (1.6-2.6)
[2023-07-05 12:29] LABS: Hemoglobin A1c 6.5 % (3.8-5.6)
[2023-07-06 05:07] LABS: Fructosamine 285 umol/L (0-285)
[2023-07-25] VITALS (25 sets, daily range): BP systolic 123–167; BP diastolic 59–84; PULSE 83–102; RESP 12–20; TEMP 36.1–37.4; O2SAT 90–97; BMI 42.0
[2023-07-25] MEDS: Ipratropium/Albuterol Sulfate 3 ML AMPUL.NEB INHALATION ×3 (07:02→23:37)
[2023-07-25] MEDS: Insulin Lispro 100 UNIT/ML INSULN.PEN SC ×3 (07:14→22:15)
--- NOTE | 2023-07-25 07:17 | PCM.HP.STD ---
HPI - General HPI Narrative DAPHNEY MEADE, is a 63 F who presents for left RTSA. no changes to h and p. cannot have block due to some cough today chronic. rab, instructions and narcotic counselling. ok to proceed. consent UTD, and left shoulder marked. MR#: [id number] Acct: [id number] Name: DAPHNEY MEADE Rep #: [id number] : 1960 Provider: Dr. Silverio Street MD Age/Sex: 63/F Location: [facility] [place] Status: Signed Intake Vital Signs 01/04/2315:05 07/02/2408:22 Height 5 ft 3 in 5 ft 3 in Weight: 239 lb 4 oz BMI 42.3 Intake Visit Reasons: left shoulder Accompanied by: Self Is patient in pain?: Yes Allergies isoniazid Allergy (Verified 07/03/23 09:23) Other Medications coenzyme [id number] E 100 mg-5 unit capsule 1 cap PO DAILY SUPPLEMENT 04/14/20 [History Confirmed 07/03/23] ferrous sulfate 325 mg (65 mg iron) tablet 325 mg PO DAILY SUPPLEMENT 04/14/20 [History Confirmed 07/03/23] losartan 50 mg tablet 50 mg PO DAILY 04/14/20 [History Confirmed 07/03/23] metformin 1,000 mg tablet 1,000 mg PO BID DM 04/14/20 [History Confirmed 07/03/23] montelukast 10 mg tablet 10 mg PO DAILY 04/14/20 [History Confirmed 07/03/23] multivitamin 1 tab PO DAILY SUPPLEMENT 04/14/20 [History Confirmed 07/03/23] omeprazole 20 mg capsule,delayed release 20 mg PO DAILY GERD 04/14/20 [History Confirmed 07/03/23] sertraline 100 mg tablet 150 mg PO DAILY 04/14/20 [History Confirmed 07/03/23] fluticasone propionate 50 mcg/actuation nasal spray,suspension 2 spray intranasal PRN PRN Wheezing 08/03/21 [History Confirmed 07/03/23] mometasone-formoterol HFA 200 mcg-5 mcg/actuation aerosol inhaler 2 inh inhalation PRN PRN Wheezing 08/03/21 [History Confirmed 07/03/23] Brain health 1 tablet PO DAILY 08/11/21 [History Confirmed 07/03/23] ergocalciferol (vitamin D2) 1,250 mcg (50,000 unit) capsule 1,250 mcg PO QWEEK 08/11/21 [History Confirmed 07/03/23] hydroxyzine pamoate 50 mg capsule 50 mg PO BID 08/11/21 [History Confirmed 07/03/23] naproxen sodium 220 mg tablet 220 mg PO BID PRN Pain 08/11/21 [History Confirmed 07/03/23] aspirin 81 mg tablet,delayed release (Adult Low Dose Aspirin) 81 mg PO DAILY 09/13/21 [History Confirmed 07/03/23] mirabegron 25 mg tablet,extended release 24 hr (Myrbetriq) 100 mg PO DAILY 02/10/22 [History Confirmed 07/03/23] glimepiride 2 mg tablet 2 mg PO DAILY 05/24/22 [History Confirmed 07/03/23] compress.stocking,knee,reg,lrg (Relief Knee Close Toe Stocking) #2 ea 09/01/22 [Rx Confirmed 07/03/23] compression socks, large #2 ea 09/01/22 [Rx Confirmed 07/03/23] furosemide 20 mg tablet 20 mg PO DAILY 09/08/22 [History Confirmed 07/03/23] bupropion HCl 150 mg 24 hr tablet, extended release 150 mg PO DAILY 09/20/22 [History Confirmed 07/03/23] loratadine 10 mg capsule 10 mg PO DAILY 09/20/22 [History Confirmed 07/03/23] polyethylene glycol 3350 17 gram oral powder packet (Miralax) 17 g PO DAILY 09/20/22 [History Confirmed 07/03/23] sennosides 8.6 mg-docusate sodium 50 mg tablet 1 tab-cap PO QHS 09/20/22 [History Confirmed 07/03/23] trazodone 50 mg tablet 50 mg PO QHS 09/20/22 [History Confirmed 07/03/23] turmeric 400 mg capsule 400 mg PO DAILY 09/20/22 [History Confirmed 07/03/23] vitamin B complex 1 tab PO DAILY 09/20/22 [History Confirmed 07/03/23] atorvastatin 20 mg tablet 20 mg PO QHS #90 tabs 10/30/22 [Rx Confirmed 07/03/23] hydrochlorothiazide 25 mg tablet 25 mg PO DAILY 01/04/23 [History Confirmed 07/03/23] lorazepam 1 mg tablet (Ativan) 1 mg PO DAILY PRN for MRI #2 tabs 03/09/23 [Rx Confirmed 07/03/23] dulaglutide 0.75 mg/0.5 mL subcutaneous pen injector (Trulicity) 0.75 mg subcut QWEEK 03/23/23 [History Confirmed 07/03/23] PFSH Medical History Abnormal stress test Anxiety Arthritis Asthma Atherosclerotic heart disease of [place] coronary artery without angina pectoris Back pain Bronchitis Cardiology follow-up encounter Chronic cough COPD (chronic obstructive pulmonary disease) COVID-19 Depression Diabetes Excessive bleeding Fracture, tibial plateau Gastric reflux History of echocardiogram History of edema History of left heart catheterization (LHC) (~09/27/21) History of stress test Hypertension Internal impingement of left shoulder Left rotator cuff tear Left shoulder pain Leg cramps MRSA (methicillin resistant staph aureus) culture positive Palpitations Post-menopausal Primary osteoarthritis, left shoulder Right hip pain Shortness of breath on exertion Sleep apnea Smoker Syncope Type 2 diabetes mellitus Vertigo Wears dentures Wears glasses Surgical History H/O: hysterectomy History of cardiac catheterization History of shoulder surgery Hx laparoscopic cholecystectomy Hx of section Hx of eye surgery Hx of right knee surgery Family History Brother Atrial fibrillationGrandfather Myocardial infarctionGrandmother Myocardial infarctionMother Dementia CAD (coronary artery disease) HypertensionFather COPD (chronic obstructive pulmonary disease) Hypertension Cancer Prostate, Colon, Social History household members: none current occupational exposures/hazards: No history of recent travel: No Smoking Status: Former smoker alcohol intake: current alcohol intake frequency: holidays/special occasions only substance use type: does not use caffeine: Yes Type: coffee Number of servings: 5 HPI left shoulder Details: This documentation accurately reflects the service provided and the decisions made by me, Dr. Silverio Street MD 07/03/23 0918. Part of today?s visit was documented by [ ], acting as scribe. DAPHNEY MEADE is a 63 year old F here today for FU L shoulder pain, pending going ahead with left RTSA, Ortho Exam General General: Yes no acute distress Neurologic: Yes alert and Yes oriented x3 Psychologic: Yes reasonable and appropriate Left Shoulder Skin/Wound: Yes CDI SHOULDER: active FE 30 and quite painful today Coding Level of Care Code Off vis,est,level 4 Diagnoses Left rotator cuff tear M75.102 Primary osteoarthritis, left shoulder M19.012 Left shoulder pain M25.512 Assessment and Plan Assessment and Plan (1) Left rotator cuff tear: Status: Acute Plan: 63-year-old female with left shoulder pain weakness and osteoarthritis for open surgery left reverse total shoulder arthroplasty. The patient be at increased risk due to the diabetes to get hemoglobin A1c prior to proceeding and make sure that is under 7, as well as other risks for infection and other problems like obesity and cellulitis in legs recently treated. Patient understands explained the pros cons risk and benefits of surgery to the patient they wish to go ahead and sign a consent for left reverse total shoulder arthroplasty. Pros and cons risks and benefits were discussed with the patient including but not limited to infection, pain, stiffness, bleeding, damage to surrounding structures, neurovascular injury, recurrence or retear, failure or wear of hardware or fixation, instability, fracture, deep vein thrombosis and pulmonary embolism, anesthetic risks, , patient dissatisfaction, need for further surgery and other risks. Patient understood and wished to proceed with surgery, and signed the informed consent documentation. (2) Primary osteoarthritis, left shoulder: Status: Acute (3) Left shoulder pain: Status: Acute [facility] Medical History (Updated 07/04/23 @ 09:06 by Celina Gaffney) Abnormal stress test Alcohol use Ambulates with cane Anemia Anxiety Arthritis Asthma Atherosclerotic heart disease of [place] coronary artery without angina pectoris Back pain Bronchitis Cardiology follow-up encounter Chronic cough COPD (chronic obstructive pulmonary disease) COVID-19 CPAP (continuous positive airway pressure) dependence Depression Diabetes Diabetes Dietary restriction Excessive bleeding Fracture, tibial plateau Gastric reflux GERD (gastroesophageal reflux disease) High cholesterol History of echocardiogram History of edema History of left heart catheterization (LHC) (~09/27/21) History of stress test History of ulceration Hypertension Internal impingement of left shoulder Left rotator cuff tear Left shoulder pain Leg cramps Loss of hearing Low iron MRSA (methicillin resistant staph aureus) culture positive MRSA infection Palpitations Post-menopausal Primary osteoarthritis, left shoulder Right hip pain Shortness of breath on exertion Sleep apnea Smoker Syncope Tinnitus Type 2 diabetes mellitus Vertigo Wears dentures Wears glasses Home Medications coenzyme [id number] E 100 mg-5 unit capsule 1 cap PO DAILY SUPPLEMENT 04/14/20 [History Last Taken 07/24/23] ferrous sulfate 325 mg (65 mg iron) tablet 325 mg PO TID SUPPLEMENT 04/14/20 [History Last Taken 07/24/23] losartan 50 mg tablet 50 mg PO DAILY 04/14/20 [History Last Taken 07/24/23] metformin 1,000 mg tablet 1,000 mg PO BID DM 04/14/20 [History Last Taken 07/24/23] montelukast 10 mg tablet 10 mg PO DAILY 04/14/20 [History Last Taken 04/14/20] omeprazole 20 mg capsule,delayed release 20 mg PO QHS GERD 04/14/20 [History Last Taken 07/25/23] sertraline 100 mg tablet 150 mg PO DAILY 04/14/20 [History Last Taken 07/24/23] fluticasone propionate 50 mcg/actuation nasal spray,suspension 2 spray intranasal DAILY Wheezing 08/03/21 [History Last Taken 07/24/23] mometasone-formoterol HFA 200 mcg-5 mcg/actuation aerosol inhaler 2 inh inhalation PRN PRN Wheezing 08/03/21 [History Last Taken Unknown] Brain health 1 tablet PO DAILY 08/11/21 [History Last Taken 07/24/23] hydroxyzine pamoate 50 mg capsule 50 mg PO BID 08/11/21 [History Last Taken Unknown] naproxen sodium 220 mg tablet 220 mg PO BID PRN Pain 08/11/21 [History Last Taken 07/24/23] aspirin 81 mg tablet,delayed release (Adult Low Dose Aspirin) 81 mg PO DAILY 09/13/21 [History Last Taken 07/19/23] mirabegron 25 mg tablet,extended release 24 hr (Myrbetriq) 50 mg PO DAILY 02/10/22 [History Last Taken 07/24/23] compress.stocking,knee,reg,lrg (Relief Knee Close Toe Stocking) #2 ea 09/01/22 [Rx Last Taken Unknown] compression socks, large #2 ea 09/01/22 [Rx Last Taken Unknown] bupropion HCl 150 mg 24 hr tablet, extended release 150 mg PO DAILY 09/20/22 [History Last Taken 07/25/23] loratadine 10 mg capsule 10 mg PO DAILY 09/20/22 [History Last Taken Unknown] polyethylene glycol 3350 17 gram oral powder packet (Miralax) 17 g PO DAILY 09/20/22 [History Last Taken 07/24/23] sennosides 8.6 mg-docusate sodium 50 mg tablet 1 tab-cap PO QHS 09/20/22 [History Last Taken Unknown] trazodone 50 mg tablet 50 mg PO QHS 09/20/22 [History Last Taken 07/24/23] atorvastatin 20 mg tablet 20 mg PO QHS #90 tabs 10/30/22 [Rx Last Taken 07/24/23] hydrochlorothiazide 25 mg tablet 25 mg PO DAILY 01/04/23 [History Last Taken 07/24/23] dulaglutide 0.75 mg/0.5 mL subcutaneous pen injector (Trulicity) 3 mg subcut QWEEK 03/23/23 [History Last Taken 07/18/23] Lactobacillus acidophilus 10 billion cell capsule (Probiotic) 100 mmu cells PO DAILY 07/04/23 [History Last Taken 07/24/23] budesonide 160 mcg-glycopyr 9 mcg-formot 4.8 mcg/actuation HFA inhaler (Breztri Aerosphere) 2 inh inhalation BID 07/04/23 [History Last Taken 07/24/23] cartilage 40 mg-collagen II-boron 5 mg-hyaluronate sod 3.3 mg tablet (Move Free Ultra Triple Action (boron)) 1 tab PO QHS 07/04/23 [History Last Taken 07/24/23] cholecalciferol (vitamin D3) 1,250 mcg (50,000 unit) capsule 1,250 mcg PO FR 07/04/23 [History Last Taken 07/20/23] mecobalamin (vitamin B12) 5,000 mcg chewable tablet 5,000 mcg PO QHS 07/04/23 [History Last Taken 07/24/23] kswdscfg-gean-ocwz 8 mg-folic 400 mcg-K 50 mcg-lutein 300 mcg tablet (Centrum Silver Women) 1 tab PO DAILY 07/04/23 [History Last Taken 07/24/23] Allergy/AdvReac Type Severity Reaction Status Date / Time isoniazid Allergy Other Verified 07/25/23 06:56 Family History Brother Atrial fibrillation Grandfather Myocardial infarction Grandmother Myocardial infarction Mother Dementia CAD (coronary artery disease) Hypertension Father COPD (chronic obstructive pulmonary disease) Hypertension Cancer Prostate, Colon, Surgical History (Updated 07/04/23 @ 09:06 by Celina Gaffney) H/O: hysterectomy History of cardiac catheterization History of colonoscopy History of esophagogastroduodenoscopy (EGD) History of shoulder surgery Hx laparoscopic cholecystectomy Hx of section Hx of eye surgery Hx of right knee surgery Social History household members: none current occupational exposures/hazards: No history of recent travel: No Smoking Status: Current every day smoker tobacco type: cigarettes alcohol intake: current alcohol intake frequency: holidays/special occasions only substance use type: does not use caffeine: Yes Type: coffee Number of servings: 5 Vital Signs Vital Signs Vital Signs: 07/25/23 07:03 Temperature 98.9 F Temperature Source Temporal Pulse Rate 83 Respiratory Rate 12 Blood Pressure 135/70 H Blood Pressure Mean 91 Blood Pressure Source Monitor Blood Pressure Position Semi-Fowlers Blood Pressure Location Right Arm Pulse Ox 95 Oxygen Delivery Method Room Air Weight Weight: 237 lb 10.533 oz Body Mass Index (BMI) 42.0 Results Lab / Micro Data 07/05/23 10:50
[2023-07-25] MEDS: Scopolamine 1mg/72hr Patch 1 PATCH TD (07:26)
[2023-07-25] MEDS: Acetaminophen 500 MG Tablet 1000 MG PO (07:26)
[2023-07-25] MEDS: Gabapentin 600 MG Tablet PO (07:26)
[2023-07-25] MEDS: Lactated Ringers 1,000 ML 15 ML IV (07:27)
[2023-07-25] MEDS: Magnesium 2 GM for ERAS IV (07:38)
[2023-07-25] MEDS: Cefazolin 2 GM in 0.9% Normal Saline (100mL Bag) 100 ML IV (08:34)
--- NOTE | 2023-07-25 08:45 | SHO_PTH ---
PATIENT: DAPHNEY MEADE LOC: [facility] U#:[id number] AGE/SX: 63/F ROOM: PR322 RE07/25/[address]: Dr. Silverio Street MD : 1960 BED: 1 DIS: 07/26/2023 SPEC #: [id number] RECD: 07/25/23 13:46 STATUS: ROBERT RECynthia #: [id number] BRANDON: 07/25/23 08:[address]: Silverio Street DEPT: SURGICAL PATHOLOGY RECD BY: Maddi Pierson ENTERED: 07/25/23 14:02 SP TYPE: HUMERUS OTHR DR: Noa [facility] Tissues: Humerus, NOS Procedures: Decalcification bone/plaque Surgery Specimen Level IV HEADER OPERATION: ERAS, reverse total shoulder replacement PRE-OP DIAGNOSIS: Left rotator cuff tear, osteoarthritis, left shoulder pain TISSUE SUBMITTED: Left shoulder bone and tissue MICROSCOPIC DIAGNOSIS Bone and tissue of left shoulder, total shoulder resection: Degenerative joint disease. AM: 07/31/23 MICROSCOPIC DESCRIPTION Slides are reviewed. GROSS DESCRIPTION Received is one container labeled with the patient's name and designated left shoulder bone and soft tissue. The specimen consists of a humeral head measuring 4.0 x 4.5 x 2.0 cm. The articular surface shows areas of erosion, eburnation and osteophyte formation. No soft tissue is identified. Category Manager sections are submitted in one cassette as follows: 1 - humeral head after decalcification. DELON/ 07/25/23 TC:5 CPT: 50857, 50908
[2023-07-25] MEDS: dexAMETHasone 10 MG/ML Vial IV (08:48)
[2023-07-25] MEDS: TXA 1000mg in NS100 100ml (IVPB at Incision) 660 MG IV (08:55)
[2023-07-25 09:47] LABS: Bedside Glucose 182 mg/dL (74-106)
--- NOTE | 2023-07-25 10:36 | RAD_ITS ---
EXAM: XR LEFT SHOULDER COMPLETE, 2 OR MORE VIEWS CLINICAL INDICATION: REVERSE LT SHOULDER REPLACEMENT TECHNIQUE: Two or more views of the left shoulder. COMPARISON: February 08, 2023 FINDINGS: Single frontal view intraoperative image submitted. Reversal shoulder arthroplasty demonstrated. Alignment appears satisfactory. No gross hardware complications. RAD/Shoulder min 2 Views IMPRESSION: Satisfactory alignment with no gross complications Electronically Signed: Zoltan Rascon MD at 18:05 EDT ,
[2023-07-25] MEDS: TXA 1000mg in NS100 100ml (IVPB at Closure) 660 MG IV (11:19)
[2023-07-25] MEDS: Bupivacaine 0.25% 30 ML Vial (11:22)
--- NOTE | 2023-07-25 11:32 | PCM.OPRPT ---
Problems Associated Problem List Diagnoses (1) Primary osteoarthritis, left shoulder: Report of Operation Date of Procedure: 07/25/23 Pre-Operative Diagnosis: L shoulder OA Post-Operative Diagnosis: same Surgery/Procedure Performed:: Left shoulder reverse total shoulder arthroplasty, biceps tenodesis Surgeon: Silverio Street Type of Anesthesia: General and Local Anesthesiologist: Angel Cabrera Estimated Blood Loss (mL): 100 Description of Procedure: Patient brought to the operating room theater. Placed supine on the beachchair. General anesthesia induced. 2 g IV Ancef administered. 1 g IV tranexamic acid given to the patient for the case as well. All bony prominences padded. SCDs on the leg. Arm richey used to the patient's left side. Patient sat up at 45 degree angle. Upper extremity prepped and draped using chlorhexidine-based prep solution allowing over 3 minutes drying time prior to draping. Preoperative timeout performed to confirm the site the patient and the surgery. Began by making a standard deltopectoral incision just lateral to the coracoid process. Carried the dissection down through skin and subcutaneous tissue achieved meticulous hemostasis. Cephalic vein and the deltoid was retracted laterally and the pectoralis major muscle retracted medially. I used a King shoulder retractor. I incised on the lateral aspect of the conjoined tendon retracted this medially. Identified the biceps. I followed the biceps through the rotator interval. I slightly released the upper border the pectoralis major tendon. I did a biceps tenodesis using #2 FiberWire to the upper border pectoralis major tendon. I then did a lesser tuberosity osteotomy, small flake of bone. I protected the axillary nerve with direct palpation. I freed up any adhesions between the subscapularis and the capsule. I placed #2 FiberWire stay sutures in the Ssc. I then made my neck cut using the extramedullary guide, 30 degrees retro. Compacted the bone gently with my finger, and identified the canal with the sounding device. I placed the trial humeral stem, size 2 to protect the metaphysis. Good press fit. I then remove the rest of the long head of the biceps as well as the labrum and release a small amount of tissue at the inferior aspect of the glenoid slightly released the triceps tendon. I dissected all around and released sharply using the Bishop and electrocautery around the metaphysis of the humerus the capsule. I then visualized the glenoid. I used my templating that I did preoperatively using CT planning and the 3d printed guide, to place the guidepin using the guide, intra op measurements using the 3d planning software. Small amount reaming anteriorly, and small amount reaming 35 degrees posteriorly for B2 glenoid. I then used the center drill bit followed by the small drill in the center of this to size a 36mm central screw. The 25mm baseplate and central screw, with 35 degree posterior wedge was assembled on the back table and then screwed into place with the augment posteriorly near 9 oclock position per templating. The central screw was achieving poor purchase, so switched the central screw for the larger diameter, size 9.5mm and 36mm length. I drilled and placed the superior and inferior locking screws, and posterior non locking compression screw. These achieved very good purchase and fixation then placed anterior screw. All good purchase and over 90% back side seating of baseplate. Baseplate was cleaned with pulse lavage followed by impacting the 36 mm glenosphere. Next I turned attention the humeral side. I broached up to a size 2 trial with +0mm size poly. The reduction was good stable slight impingement in full FE, otherwise no impingement with full range of motion therefore I selected those as the final component. I did take intraoperative radiographs to confirm good placement and size selection. I selected was finally a Tornier perform humeral stem size 2 with +0 mm polyethylene impacted into place. I also put small drill holes just medial and lateral to the Ssc osteotomy, and passed the sutures for the subscapularis lesser tuberosity osteotomy through this and secured this into place in slight internal rotation, with sutures around backside of implant. Final checks were done with full range of motion no impingement no instability normal shuck test and good tension at the conjoined tendon. Wound thoroughly irrigated followed by closure and subcutaneous tissue with 2-0 Vicryl and skin with 3-0 Monocryl. 20cc 0.25% bupivicaine. Skin cleaned with wet dry dressing followed application of Steri-Strips and silver Mepilex dressing with an abduction pillow sling for the upper extremity. Patient woken up from a general anesthetic transferred off the operating table taken postanesthetic care unit in stable condition. All sponge needle instrument counts were correct and complications. Plan for the patient is to be discharged home today hopefully as long as they are comfortable. cpt 91115, 53011? Complications none Admit VTE Documentation VTE Present on Admission: No VTE Mechan Device Prophylaxis: SCD's VTE Pharm Prophylaxis ordered?: No Reason prophylaxis not ordered:: Treatment Not Indicated Procedures Musculoskeletal 20xxx-29xxx: Other Procedure See Report
--- NOTE | 2023-07-25 11:41 | EX.PCM.DISCH ---
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 Discharge Plan Admission Attending Provider: Silverio Street [facility] Instructions Patient Instructions: Reverse Total Shoulder Replace Discharge Orders/Prescriptions Prescriptions: New oxycodone-acetaminophen [Endocet] 5-325 mg tablet 1 tab PO Q4H MDD 6 PRN (Reason: pain) 5 Days Qty: 30 0RF No Action Dulera 200-5 mcg/actuation HFA aerosol inhaler 2 inh inhalation PRN PRN (Reason: Wheezing) Patient Comments: INHALE 2 PUFFS BY MOUTH TWICE DAILY fluticasone propionate 50 mcg/actuation spray,suspension 2 spray intranasal DAILY naproxen sodium 220 mg tablet 220 mg PO BID PRN (Reason: Pain) hydroxyzine pamoate 50 mg capsule 50 mg PO BID Brain health 1 tablet PO DAILY aspirin [Adult Low Dose Aspirin] 81 mg tablet,delayed release (DR/EC) 81 mg PO DAILY Myrbetriq 25 mg tablet extended release 24 hr 50 mg PO DAILY hydrochlorothiazide 25 mg tablet 25 mg PO DAILY Trulicity 0.75 mg/0.5 mL pen injector 3 mg subcut QWEEK losartan 50 MG tablet 50 mg PO DAILY sertraline 100 MG tablet 150 mg PO DAILY montelukast 10 MG tablet 10 mg PO DAILY ferrous sulfate 325 MG tablet 325 mg PO TID metformin 1,000 MG tablet 1,000 mg PO BID omeprazole 20 MG capsule 20 mg PO QHS coenzyme [id number] E 1 EACH capsule 1 cap PO DAILY (DME) compression socks, large Misc See Rx Instructions .Route Qty: 2 0RF Rx Instructions: As directed (DME) Relief Knee Close Toe Stocking Misc See Rx Instructions .ROUTE .COMPLEX Qty: 2 0RF Rx Instructions: Keep on during day, remove at night trazodone 50 mg tablet 50 mg PO QHS polyethylene glycol 3350 [Miralax] 17 gram Powder In Packet 17 g PO DAILY sennosides-docusate sodium [Senna Laxative-Stool Softener] 8.6-50 mg Tablet 1 tab-cap PO QHS bupropion HCl 150 mg tablet extended release 24 hr 150 mg PO DAILY Patient Comments: TAKE 1 TABLET BY MOUTH ONCE DAILY IN THE MORNING loratadine 10 mg Capsule 10 mg PO DAILY Breztri Aerosphere 160-9-4.8 mcg/actuation HFA aerosol inhaler 2 inh inhalation BID Probiotic 10 billion cell capsule 100 mmu cells PO DAILY mecobalamin (vitamin B12) 5,000 mcg tablet,chewable 5,000 mcg PO QHS Centrum Silver Women 8 mg iron-400 mcg-50 mcg tablet 1 tab PO DAILY zfwycupuf-rkrhgwyt-ugj-hyalur [Move Free Ultra Triple Action] 40-5-3.3 mg tablet 1 tab PO QHS cholecalciferol (vitamin D3) 1,250 mcg (50,000 unit) capsule 1,250 mcg PO FR atorvastatin 20 mg tablet 20 mg PO QHS Qty: 90 3RF Other Ambulatory Orders: 12 Lead EKG (Routine) Timeframe: [id number] Location: None Selected Ordered By: Silverio Street [facility] - Disposition Disposition (needs filled in before D/C Order can be placed): Home, Self Care
[2023-07-25] MEDS: Lactated Ringers 1,000 ML 125 ML IV ×2 (12:15→14:37)
[2023-07-25 12:30] LABS: Bedside Glucose 207 mg/dL (74-106)
--- NOTE | 2023-07-25 16:04 | SUR.PHASEII ---
Shahbaz (son) called in and wanted information. He said that he lives with the patient. I went back and verified this information with Radha that in fact Shahbaz does live with her and that it is ok to give him information. She verbalized yes that information can be given to him.
[2023-07-25] MEDS: Oxycodone/Apap 5/325 Tablet PO (18:58)
[2023-07-25 20:43] LABS: Bedside Glucose 269 mg/dL (74-106)
--- NOTE | 2023-07-25 21:31 | CON.PCM.HO_ITS ---
Assessment & Plan Assessment/Plan (1) Arthritis of left shoulder region: (2) Hypoxia: PLAN: Plan Patient is a 63-year-old female who presented to [facility] on 07/25/2023 for a planned orthopedic procedure. Medicine consulted postoperatively for medical management. 1. Left shoulder osteoarthritis ? Orthopedics primary. S/p left shoulder reverse total shoulder arthroplasty with Dr. Street on 07/24. No intraoperative complications noted. PT/OT/case management following. Pain control per orthopedics. 2. Mild postoperative hypoxia ? Breathing comfortably on 2 L of cannula at rest with good saturations on evening of operation. Not on home oxygen. Suspect mild hypoxia is secondary to anesthesia and will resolve by tomorrow. Okay for nasal cannula as needed overnight given history of sleep apnea as noted below. Continue home inhalers as noted below. 3. Anemia ? Baseline hemoglobin appears to be around 9-10 since May 2022. Follow-up a.m. CBC. Home regimen is apparently ferrous sulfate 325 mg 3 times daily, will decrease to daily as there is no benefit to twice daily or 3 times daily dosing per the literature. 4. Type 2 diabetes mellitus ? Home regimen of metformin 1000 mg twice daily, Trulicity 3 mg weekly. Okay for Humalog sliding scale insulin with meals while inpatient, can plan to resume home regimen on discharge. Chronic medical conditions: ? Morbid obesity: BMI 42 on admit. Complicated hospital course, care and prognosis. ? History of nonobstructive CAD/hypertension/hyperlipidemia: Follows with [facility]. Continue home aspirin, statin, hydrochlorothiazide, losartan. ? Mood disorder/insomnia: Stable. Continue home bupropion, sertraline, trazodone at night. ? NADEEM: Nonadherent to home CPAP. Continue nasal cannula at night as needed while inpatient. ? COPD/asthma/seasonal allergies: Stable. Continue home inhalers, montelukast, loratadine. ? Overactive bladder: Continue home mirabegron. ? GERD: Continue home PPI. DVT prophylaxis: Lovenox Total clinical time spent by myself addressing the patient's medical issues, reviewing all the data, and collaborating with patient's care team: 35 minutes. HPI Consult Data Date of Consult: 07/26/23 HPI Narrative Reason for Consultation: Medical management HPI Narrative: DAPHNEY MEADE, is a 63 F who presented to [facility] on 07/25/2023 for a planned orthopedic procedure. Medicine consulted pos toperatively for medical management. Patient has history of left shoulder OA and had left shoulder reverse total shoulder arthroplasty done with Dr. Street earlier today. I saw the patient at the bedside this evening around 22:00. Patient was sitting up comfortably in bed, in no acute distress. She did appear somewhat fatigued but was conversing normally and answering all questions appropriately for me. She was breathing very comfortably on 2 L nasal cannula with good oxygen saturations at that time. Her left arm was stable in a sling. Patient did report mild to moderate left shoulder pain at this time. Stated the pain medication should be given earlier was somewhat helpful. She had not been out of bed yet since coming back up to the floor from the OR. She denies any fevers or chills. Denies any other pain or discomfort. No other acute concerns. [facility] Medical History (Updated 07/26/23 @ 01:[address] Zaheer Pemberton, DO) Abnormal stress test Alcohol use Ambulates with cane Anemia Anxiety Arthritis Asthma Atherosclerotic heart disease of [place] coronary artery without angina pectoris Back pain Bronchitis Cardiology follow-up encounter Chronic cough COPD (chronic obstructive pulmonary disease) COVID-19 CPAP (continuous positive airway pressure) dependence Depression Diabetes Diabetes Dietary restriction Excessive bleeding Fracture, tibial plateau Gastric reflux GERD (gastroesophageal reflux disease) High cholesterol History of echocardiogram History of edema History of left heart catheterization (LHC) (~09/27/21) History of stress test History of ulceration Hypertension Internal impingement of left shoulder Left rotator cuff tear Left shoulder pain Leg cramps Loss of hearing Low iron MRSA (methicillin resistant staph aureus) culture positive MRSA infection Palpitations Post-menopausal Primary osteoarthritis, left shoulder Right hip pain Shortness of breath on exertion Sleep apnea Smoker Syncope Tinnitus Type 2 diabetes mellitus Vertigo Wears dentures Wears glasses Home Medications coenzyme [id number] E 100 mg-5 unit capsule 1 cap PO DAILY SUPPLEMENT 04/14/20 [History Last Taken 07/24/23] ferrous sulfate 325 mg (65 mg iron) tablet 325 mg PO TID SUPPLEMENT 04/14/20 [History Last Taken 07/24/23] losartan 50 mg tablet 50 mg PO DAILY 04/14/20 [History Last Taken 07/24/23] metformin 1,000 mg tablet 1,000 mg PO BID DM 04/14/20 [History Last Taken 07/24/23] montelukast 10 mg tablet 10 mg PO DAILY 04/14/20 [History Last Taken 04/14/20] omeprazole 20 mg capsule,delayed release 20 mg PO QHS GERD 04/14/20 [History Last Taken 07/25/23] sertraline 100 mg tablet 150 mg PO DAILY 04/14/20 [History Last Taken 07/24/23] fluticasone propionate 50 mcg/actuation nasal spray,suspension 2 spray intranasal DAILY Wheezing 08/03/21 [History Last Taken 07/24/23] mometasone-formoterol HFA 200 mcg-5 mcg/actuation aerosol inhaler 2 inh inhalation PRN PRN Wheezing 08/03/21 [History Last Taken Unknown] Brain health 1 tablet PO DAILY 08/11/21 [History Last Taken 07/24/23] hydroxyzine pamoate 50 mg capsule 50 mg PO BID 08/11/21 [History Last Taken Unknown] naproxen sodium 220 mg tablet 220 mg PO BID PRN Pain 08/11/21 [History Last Taken 07/24/23] aspirin 81 mg tablet,delayed release (Adult Low Dose Aspirin) 81 mg PO DAILY 09/13/21 [History Last Taken 07/19/23] mirabegron 25 mg tablet,extended release 24 hr (Myrbetriq) 50 mg PO DAILY 02/10/22 [History Last Taken 07/24/23] compress.stocking,knee,reg,lrg (Relief Knee Close Toe Stocking) #2 ea 09/01/22 [ Rx Last Taken Unknown] compression socks, large #2 ea 09/01/22 [Rx Last Taken Unknown] bupropion HCl 150 mg 24 hr tablet, extended release 150 mg PO DAILY 09/20/22 [History Last Taken 07/25/23] loratadine 10 mg capsule 10 mg PO DAILY 09/20/22 [History Last Taken Unknown] polyethylene glycol 3350 17 gram oral powder packet (Miralax) 17 g PO DAILY 09/20/22 [History Last Taken 07/24/23] sennosides 8.6 mg-docusate sodium 50 mg tablet 1 tab-cap PO QHS 09/20/22 [History Last Taken Unknown] trazodone 50 mg tablet 50 mg PO QHS 09/20/22 [History Last Taken 07/24/23] atorvastatin 20 mg tablet 20 mg PO QHS #90 tabs 10/30/22 [Rx Last Taken 07/24/23] hydrochlorothiazide 25 mg tablet 25 mg PO DAILY 01/04/23 [History Last Taken 07/24/23] dulaglutide 0.75 mg/0.5 mL subcutaneous pen injector (Trulicity) 3 mg subcut QWEEK 03/23/23 [History Last Taken 07/18/23] Lactobacillus acidophilus 10 billion cell capsule (Probiotic) 100 mmu cells PO DAILY 07/04/23 [History Last Taken 07/24/23] budesonide 160 mcg-glycopyr 9 mcg-formot 4.8 mcg/actuation HFA inhaler (Breztri Aerosphere) 2 inh inhalation BID 07/04/23 [History Last Taken 07/24/23] cartilage 40 mg-collagen II-boron 5 mg-hyaluronate sod 3.3 mg tablet (Move Free Ultra Triple Action (boron)) 1 tab PO QHS 07/04/23 [History Last Taken 07/24/23] cholecalciferol (vitamin D3) 1,250 mcg (50,000 unit) capsule 1,250 mcg PO FR 07/04/23 [History Last Taken 07/20/23] mecobalamin (vitamin B12) 5,000 mcg chewable tablet 5,000 mcg PO QHS 07/04/23 [History Last Taken 07/24/23] qallwgah-zdae-rbpq 8 mg-folic 400 mcg-K 50 mcg-lutein 300 mcg tablet (Centrum Silver Women) 1 tab PO DAILY 07/04/23 [History Last Taken 07/24/23] oxycodone-acetaminophen 5 mg-325 mg tablet (Endocet) 1 tab PO Q4H PRN pain 5 days #30 tabs 07/25/23 [Rx Last Taken Unknown] Allergy/AdvReac Type Severity Reaction Status Date / Time isoniazid Allergy Other Verified 07/25/23 06:56 Family History Brother Atrial fibrillation Grandfather Myocardial infarction Grandmother Myocardial infarction Mother Dementia CAD (coronary artery disease) Hypertension Father COPD (chronic obstructive pulmonary disease) Hypertension Cancer Prostate, Colon, Surgical History (Updated 07/04/23 @ 09:06 by Celina Gaffney) H/O: hysterectomy History of cardiac catheterization History of colonoscopy History of esophagogastroduodenoscopy (EGD) History of shoulder surgery Hx laparoscopic cholecystectomy Hx of section Hx of eye surgery Hx of right knee surgery Social History household members: none current occupational exposures/hazards: No history of recent travel: No Smoking Status: Current every day smoker tobacco type: cigarettes alcohol intake: current alcohol intake frequency: holidays/special occasions only substance use type: does not use caffeine: Yes Type: coffee Number of servings: 5 ROS Constitutional Constitutional: Reports fatigue; Denies chills, fever(s) or weakness Eyes Eyes: Denies change in vision Cardiovascular Cardiovascular: Denies chest pain Respiratory/Chest Respiratory/Chest: Denies cough, shortness of breath at rest or wheezing Gastrointestinal Gastrointestinal: Denies abdominal pain Neurologic Neurologic: Denies dizziness, focal weakness or headache(s) Physical Exam Const alert, oriented x3 and no apparent distress Constitutional Narrative: Pleasant elderly female, morbidly obese, mildly fatigued appearing but otherwise sitting up comfortably bed, conversing normally, in no acute distress. General Appearance: cooperative and comfortable HEENT normocephalic, head/scalp atraumatic, hearing grossly normal bilaterally, nasal mucous membranes and turbinates normal and moist oral mucous membranes Eyes PERRL, EOMs intact bilaterally and conjunctivae normal Eyes Narrative: Lazy eye noted. Neck full ROM Chest inspection of chest normal Resp normal respiratory effort, normal air movement, no use of accessory muscles and clear to auscultation bilaterally Resp Narrative: Breathing comfortably on 2 L nasal cannula. Good air movement bilaterally, no wheezing or crackles noted. Cardio regular rate, regular rhythm, no murmurs and peripheral pulses 2+ throughout GI normal to inspection, nondistended, normoactive bowel sounds, soft to palpation, non-tender and non-distended Back/Spine normal ROM Extremity Extremity Narrative: Left arm stable in sling. Skin no rashes or lesions noted Neuro no focal motor deficits Speech: speech normal Psych mental status grossly normal Lab / Micro Data 07/05/23 10:50 Labs: Laboratory Results - last 24 hr 07/25/23 06:52: POC Glucose 182 H 07/25/23 12:04: POC Glucose 207 H 07/25/23 20:21: POC Glucose 269 H Imaging Radiology Impression Shoulder X-Ray 07/25/23 10:36 IMPRESSION: Satisfactory alignment with no gross complications Electronically Signed: Zoltan Rascon MD at 18:05 EDT , Charges/Coding Visit Charges Inpatient E&M: 00507 Subs Hosp L2
[2023-07-25] MEDS: Atorvastatin Calcium 20 MG Tablet PO (22:13)
[2023-07-25] MEDS: Sertraline 100 MG Tablet 150 MG PO (22:13)
[2023-07-25] MEDS: Pantoprazole Sodium 20 MG Tablet PO (22:13)
[2023-07-25] MEDS: Montelukast 10 MG Tablet PO (22:13)
[2023-07-25] MEDS: hydrOXYzine PAM 25 MG Capsule 50 MG PO (22:13)
[2023-07-25] MEDS: traZODone 50 MG Tablet PO (22:13)
[2023-07-25] MEDS: Senna/Docusate Sodium 1 Tablet PO (22:14)
[2023-07-25] MEDS: Naproxen 250 MG Tablet PO (22:18)
[2023-07-26] VITALS (7 sets, daily range): BP systolic 129–156; BP diastolic 61–84; PULSE 87–98; RESP 17–18; TEMP 36.6–37.1; O2SAT 84–100
[2023-07-26] MEDS: Oxycodone/Apap 5/325 Tablet PO ×2 (02:18→09:55)
[2023-07-26] MEDS: Insulin Lispro 100 UNIT/ML INSULN.PEN SC ×2 (04:47→12:35)
[2023-07-26 05:07] LABS: Bedside Glucose 189 mg/dL (74-106)
[2023-07-26 07:24] LABS: Hemoglobin 9.1 g/dL (12.0-15.0); Mean Corp Hgb Conc 30.3 g/dL (32-36); Mean Corpuscular Volume 72.5 fL (81-99); Mean Platelet Vol. 9.6 fl (6.2-12.0); Platelet Count 303 K/mm3 (150-450); RBC Distribution Width CV 18.9 % (11.6-14.6); RBC Distribution Width SD 48.8 fl (35.1-43.9); Red Blood Count 4.14 M/mm3 (4.2-5.4); White Blood Count 9.6 K/mm3 (4.4-11.0)
[2023-07-26 07:31] LABS: Anion Gap 4 (5-15); BUN 9 mg/dL (7-18); BUN/Creat Ratio 11.7 RATIO (10-20); Calcium,Total 8.8 mg/dL (8.5-10.1); Chloride 96 mmol/L (98-107); Creatinine, Serum 0.77 mg/dL (0.55-1.02); EST Glomerular Filtration Rate 80 mL/min (>60); Est Glom Filt Rate - Afr Amer 97 mL/min (>60); Estimated Creatinine Clearance 82.52 ml/min; Glucose 172 mg/dL (74-106); Potassium 3.7 mmol/L (3.5-5.1); Sodium Level 134 mmol/L (136-145)
[2023-07-26] MEDS: Budesonide Respules 0.5 MG/2 ML AMPUL.NEB. INHALATION (07:34)
[2023-07-26] MEDS: Ipratropium/Albuterol Sulfate 3 ML AMPUL.NEB INHALATION ×2 (07:35→13:35)
[2023-07-26] MEDS: 0.9% Saline Lock 10 ML Syringe IV (08:29)
[2023-07-26] MEDS: Furosemide 20 MG/2 ML VIAL IV (08:29)
[2023-07-26] MEDS: Polyethylene Glycol 3350 17 GM PACKET PO (08:30)
[2023-07-26] MEDS: Ferrous Sulfate 325 MG Tablet PO (08:30)
[2023-07-26] MEDS: Multivitamins,Ther W-Minerals Tablet 1 TABLET PO (08:30)
[2023-07-26] MEDS: Aspirin E.C. 81 MG Tablet PO (08:30)
[2023-07-26] MEDS: Fluticasone 0.05% 1 SPRAY NASAL.SRY 2 SPRAY NASAL (08:31)
[2023-07-26] MEDS: Loratadine 10 MG Tablet PO (08:31)
[2023-07-26] MEDS: Losartan Potassium 50 MG Tablet PO (08:31)
[2023-07-26] MEDS: hydroCHLOROthiazide 25 MG Tablet PO (08:31)
[2023-07-26] MEDS: Vibegron 75 MG TABLET PO (08:32)
[2023-07-26] MEDS: Sertraline 100 MG Tablet 150 MG PO (08:32)
[2023-07-26] MEDS: hydrOXYzine PAM 25 MG Capsule 50 MG PO (08:33)
[2023-07-26] MEDS: buPROPion (XL) 150 MG TABLET.XL PO (08:33)
--- NOTE | 2023-07-26 08:57 | PCM.PN.ORT ---
Subjective Subjective POD 1 L RTSA. doing well. doing an 'off oxygen' test to monitor sats and ability to dc home. some pain to shoulder. in the sling. no active SOB at the moment, eating well. Objective Data Objective Data Vital Signs: Vital Signs Temp Pulse Resp BP Pulse Ox O2 Del Method O2 Flow Rate 98.8 F 96 18 143/70 H 91 Room Air 3 07/26/23 08:45 07/26/23 08:45 07/26/23 08:45 07/26/23 08:45 07/26/23 08:45 07/26/23 08:45 07/26/23 07:35 Oxygen Flow Rate (L/min) 3 Oxygen Delivery Method Room Air Weight: 237 lb 10.533 oz Body Mass Index (BMI) 42.0 Intake & Output: Intake and Output for Last 24 Hours 07/24/23 07/25/23 07/26/23 23:59 23:59 23:59 Intake Total 3434 / 3434 Balance 3434 / 3434 Lab / Micro Data 07/26/23 06:20 07/26/23 06:20 Labs: Laboratory Results - last 24 hr 07/25/23 06:52: POC Glucose 182 H 07/25/23 12:04: POC Glucose 207 H 07/25/23 20:21: POC Glucose 269 H 07/26/23 04:45: POC Glucose 189 H 07/26/23 06:20: WBC 9.6, RBC 4.14 L, Hgb 9.1 L, Hct 30.0 L, MCV 72.5 L, MCH 22.0 L, MCHC 30.3 L, RDW Std Deviation 48.8 H, RDW Coeff of Christina 18.9 H, Plt Count 303, MPV 9.6, Sodium 134 L, Potassium 3.7, Chloride 96 L, Carbon Dioxide 34.0 H, Anion Gap 4 L, BUN 9, Creatinine 0.77, Estim Creat Clear Calc 82.52, Est GFR (MDRD) Af Amer 97, Est GFR (MDRD) Non-Af 80, BUN/Creatinine Ratio 11.7, Glucose 172 H, Calcium 8.8 Micro: Microbiology 07/05/23 10:50 Swab (Method) Nasal Screen MRSA/MSSA - Final Radiography Diagnostic Testing: Radiology Impression Shoulder X-Ray 07/25/23 10:36 IMPRESSION: Satisfactory alignment with no gross complications Electronically Signed: Zoltan Rascon MD at 18:05 EDT , Physical Exam Narrative drsg dry, nvi to ax, mru and ain/pin nerves. strong radial pulse. Const alert General Appearance: cooperative Assessment & Plan Assessment/Plan (1) Arthritis of left shoulder region: PLAN: POD 1 . If stable off O2 and hospitalist agrees, can dc patient and FU as outpatient early next week or in 2 weeks. Ok to remove sling for hand wrist elbow ROM gently, no lifting over 1-2 pounds.
--- NOTE | 2023-07-26 10:42 | PCM.HOSP.N ---
Hospitalist Note Patient is clinically stable. Ambulatory pulse ox was done and she required no oxygen today. I do highly suspect her oxygen requirement last evening was related to obstructive sleep apnea and postoperative sedation/pain medication. Her labs appear to be stable and from my standpoint she is safe for discharge home.
[2023-07-26 12:14] LABS: Bedside Glucose 213 mg/dL (74-106)
--- NOTE | 2023-07-26 14:40 | CASEMGMT ---
BENNY JAIN NATIONAL RECRUITER CM to room to meet with patient for initial transition planning/care coordination assessment. BENNY JAIN introduced self and role at [facility]. Pt voices understanding and consents to assessment at this time. Pt sitting up in chair in room in no distress at this time. Dtr and son @ bedside and pt agreeable to them being present during assessment. Pt is A/O at this time and answers all questions appropriately. Care providers, pharmacy, and demographics verified/updated at this time. PCP: [facility] Specialists: Dr Street-ortho Preferred Pharmacy:[facility]. [facility] retail @ discharge. Insurance: [employer] [facility] Prescription Benefit: Yes LNOK: 3 Adult children. 2 dtrs: Lillian and Alona. son: Shahbaz Living Arrangements: Son lives w/pt in a mobile home w/4-5 steps to enter. Pt does okay w/the stairs, she just takes her time on them. Family able to assist pt w/steps as needed. Son works during the day but able to assist pt when home. Other family members able to help also. Transportation: Pt/daughter/family DME: Has a functioning glucometer w/supplies and machine greaser. Pt states she is supposed to wear a PAP, but does not wear it. Pt states no need for further DME at this time. HHC/SNF: No hx of SNF. Hx of [facility] therapy. Pt wishes to return home and states has no concerns with going home. She plans to call to schedule a f/u appt w/Dr Street and states was informed he would talk w/her about therapy at that appt. PLAN: Home w/family support and discharge plans in place. Colby AGUIRRE RN, CM
== END 2023-07-26 15:15 | disposition home or self-care (01) ==
LOC: SDC 17:17 → MS3 17:17
PROVIDERS: Anesthesiology; Hospitalist; Admitting Provider Orthopaedic Surgery Sports Medicine; Referring Provider Orthopaedic Surgery Sports Medicine; Visit Provider Orthopaedic Surgery Sports Medicine
PROC: (CPT 23472; principal; 2023-07-25 08:15)
DX: M19.012 Primary osteoarthritis, left shoulder (principal); J44.9 Chronic obstructive pulmonary disease, unspecified; E11.9 Type 2 diabetes mellitus without complications; I10 Essential (primary) hypertension; F17.210 Nicotine dependence, cigarettes, uncomplicated; G47.33 Obstructive sleep apnea (adult) (pediatric); M75.102 Unspecified rotator cuff tear or rupture of left shoulder, not specified as traumatic; I25.10 Atherosclerotic heart disease of native coronary artery without angina pectoris; D64.9 Anemia, unspecified; Z79.84 Long term (current) use of oral hypoglycemic drugs; R09.02 Hypoxemia; E78.00 Pure hypercholesterolemia, unspecified; Z79.899 Other long term (current) drug therapy; Z79.82 Long term (current) use of aspirin; Z79.51 Long term (current) use of inhaled steroids; F32.A Depression, unspecified; F41.9 Anxiety disorder, unspecified; K21.9 Gastro-esophageal reflux disease without esophagitis; Z86.2 Personal history of diseases of the blood and blood-forming organs and certain disorders involving the immune mechanism
CPT/HCPCS: 23472; 23430; 36415; 73030; 76000; 80048; 82962; 82985; 83036; 83735; 85025; 85027; 85610; 85730; 86850; 86870; 86900; 86901; 87081; 88305; 88311; 93005; 94640; 94668; 94762; 96374; 97162; 97166; 99221; C1776; J7040; J7120; A4216; G0378; J1940; J2405

== ENCOUNTER → 2023-09-13 | Outpatient (CLI) | payer MEDICARE, SELFPAY ==
[2023-09-13 12:27] LABS: Absolute Lymphocyte Count 2.04 X10^3/uL (0.83-4.51); Absolute Neutrophil Count 4.5 X10^3/uL (2.0-7.7); Basophil# 0.05 X10^3/uL; Basophil% 0.7 % (0-1); Eosinophil# 0.14 X10^3/uL; Eosinophils% 1.9 % (0-5); Hematocrit 33.4 % (37-47); Hemoglobin 9.8 g/dL (12.0-15.0); Lymphocyte # 2.04 X10^3/ul (0.83-4.51); Lymphocyte % 27.9 % (19-41); Mean Corp Hgb Conc 29.3 g/dL (32-36); Mean Corpuscular Hgb 21.6 pg (27.0-32.0); Mean Corpuscular Volume 73.6 fL (81-99); Mean Platelet Vol. 9.3 fl (6.2-12.0); Monocyte# 0.51 X10^3/uL; NRBC Flagged by Analyzer 0 % (0-5); Neutrophil # 4.52 X10^3/uL (2.7-7.7); Platelet Count 406 K/mm3 (150-450); RBC Distribution Width CV 18.6 % (11.6-14.6); RBC Distribution Width SD 48.9 fl (35.1-43.9); Red Blood Count 4.54 M/mm3 (4.2-5.4); White Blood Count 7.3 K/mm3 (4.4-11.0)
[2023-09-13 13:04] LABS: Microalbumin,Random Urine 19.3 mg/L (NO RANGE EST.)
[2023-09-13 15:10] LABS: ALB/GLOB Ratio 0.8 RATIO (0.9-2.4); AST(SGOT) 8 U/L (15-37); Alanine Aminotransfer ALT/SGPT 20 U/L (13-56); Albumin, Serum 3.1 g/dL (3.2-5.0); Alkaline Phosphatase 102 U/L (45-117); Anion Gap 6 (5-15); BUN 14 mg/dL (7-18); BUN/Creat Ratio 20.1 RATIO (10-20); Calcium,Total 9.6 mg/dL (8.5-10.1); Chloride 99 mmol/L (98-107); Cholesterol 121 mg/dL (200); EST Glomerular Filtration Rate 89 mL/min (>60); Est Glom Filt Rate - Afr Amer 108 mL/min (>60); Globulin 3.7 g/dL (2.2-4.2); Glucose 125 mg/dL (74-106); High Density Lipoprotein 48 mg/dL; Potassium 3.8 mmol/L (3.5-5.1); Protein, Total 6.8 g/dL (6.4-8.2); Sodium Level 133 mmol/L (136-145); Triglycerides 112 mg/dL; Very Low Density Lipoprotein 22 mg/dL (5-40)
[2023-09-13 15:24] LABS: Hemoglobin A1c 6.2 % (3.8-5.6)
== END | disposition home or self-care (01) ==
LOC: LAB.FUTURE 11:34
PROVIDERS: Visit Provider Nurse Practitioner Family
DX: E11.9 Type 2 diabetes mellitus without complications (principal); E78.5 Hyperlipidemia, unspecified
CPT/HCPCS: 36415; 80053; 80061; 82043; 83036; 85025

== ENCOUNTER 2023-09-27 09:00 | Outpatient (RCR) | payer MEDICARE, SELFPAY ==
--- NOTE | 2023-08-07 12:32 | HP.PTEVAL_ITS ---
Patient's Visit Information Visit Information Visit Information: DAPHNEY MEADE is a 63 year old F referred to Physical Therapy by Dr. Silverio Street MD with a diagnosis of L reverse total shoulder arthroplasty, DOS 07.25.23. Date of Evaluation: 08/07/23 Physical Therapist: Howard Mendoza DPT Visit Plan Frequency: 3x /Week Duration: 6 Weeks Plan: 1) MHP/Ice as need 2) PROM and AAROM progress as tolerated. Progressing as tolerated, care with ER for 3 weeks just to 30deg, progress further as able. 3) shoulder isometrics progressing to concentric strengthening as tolerated. Subjective Subjective: Pt. is here today for her initial evaluation with diagnosis of L reverse total shoulder replacement. DOS: 07/25/23. Pt. arrives in sling. She repo rts overall doing okay. She is having some trouble sleeping. She is sleeping in chair with sling on. She did report that she had fallen twice, but physician is aware. Pt. denies N/T. She has been doing her pendulums at home and doing active elbow flexion. Pt. reports pain at 5/10 this date. She is not driving. She is hopeful to reduce symptoms, increase her function in order to get back to all household activities without pain. Pain L shoulder: Pain Intensity (Out of 10): 5 Pain Intensity Range: 2 and 8 Objective Objective: POSTURE: Pt. has general flexed posture, L shoulder in guarded posture at side. PALPATION: Pt. has well healing incision. She does have some anterior swelling, but expected. Slight distal swelling in her forearm, but most likely from lack of movement. NEURO: normal sensation throughout B UEs. ROM: PROM: L shoulder: flexion 90deg, scaption 75deg abd 80deg, ER at side 10deg. IT not tested. MMT: RUE: 5/5 throughout. LUE: Pt. is able to do shoulder shrug and active elbow flexion and extension. No other LUE MMT completed. Balance/Special Test Scores Quick DASH Score: 81.8175 Goals Goal 1:: LTG: Pt. to be I with HEP for L shoulder ROM and strengthening. Goal Time Frame: 6-8 Weeks Goal 2:: STG: Pt to have increased PROM of L shoulder to 110deg of flexion, 3 0deg of ER at side. Goal Time Frame: 4-6 Weeks Goal 3:: LTG: pt. to have increased L shoulder AROM allowing her to complete all ADLs and functional mobility. Goal Time Frame: 6-8 Weeks Goal 4:: LTG: Pt. to have increased strength symmetrical to R shoulder. Goal Time Frame: 6-8 Weeks Goal 5:: STG: Pt. to sleep throughout the night without increase in L shoulder pain. Goal Time Frame: 2-4 Weeks Rehabilitation Potential Physical Therapy Diagnosis: Pt. has signs and symptoms Rehabilitation Potential: Excellent Anticipated Interventions Patient/Client Instruction: Educate patient on: Condition, Plan of Care, Risk Factors and Benefits of Fitness Program For the Purpose of:: To facilitate caregiver knowledge, To improve self management, To prevent re-injury, To improve ability to perform tasks related to life management and To improve tolerance to ADL's Therapeutic Exercise to Include: Strength training, Power training, Endurance training, Postural training, Flexibilty training, Passive ROM, Active ROM and Scapular Strength/Stabilization For the Purpose of:: To decrease pain, To increase ROM, To improve nutrient delivery to tissue, To increase oxygenation perfusion, To improve muscle performance and motor function, To improve ability to perform ADL's, To increase tolerance to activity/condition/position, To improve health of tissue, To decrease soft tissue restriction and To increase flexibility/ROM Manual Therapy Techniques to Include: Mobilization, Passive ROM and Soft tissue mobilization For the Purpose of:: To decrease pain, To decrease swelling/inflammation, To inc rease ROM, To improve nutrient delivery to tissue, To increase oxygenation perfusion and To improve muscle performance and motor function Cryotherapy (ice pack, ice massage): Yes Thermo therapy (hot pack): Yes For the Purpose of:: To decrease pain, To decrease swelling/inflammation and To increase ROM Text: Thank you for the opportunity to evaluate your patient. For Medicare and Medicare HMO plans, please review the plan of care and approve it. It will need to be FAXED BACK to us at [phone] for Medicare purposes. For Medicare only, by signing this I certify the plan of care. Please let me know if there are questions or concerns regarding this plan of care. Physician Signature: Date:
--- NOTE | 2023-09-27 09:20 | HP.PTDCSUM ---
Discharge Summary D/C summary: It has been my pleasure to treat DAPHNEY MEADE referred by Dr. Silverio Street MD, with the diagnosis of L reverse total shoulder arthroplasty, DOS 4.24.24 for a total of 18 visit(s). Discharge Date: 09/27/23 Please see the following information for a summary of their discharge status. Subjective Subjective: Pt. reports being 75% better overall. Pt. reports no pain currently. I only have some soreness with movement, but nothing when I don't. Pain L shoulder: Pain Intensity (Out of 10): 2 Overall Improvement % Improvement: 75 Objective Objective/Function: ROM: L shoulder: AROM: flexion 110deg, abd 105deg, functional ER C3 aberrant motion, functional IR L SI region. PROM: flexion 135deg, abd 130deg, ER at 90deg of abd 75deg, IR at 90deg of abd 30deg. MMT: RUE, Er 17.1#, IR 18.1#, flexion 14.9#, abd 16.0 LUE: ER 7.1#, IR 12.5#, flexion 5.9#, abd 6.9# Overall she is doing well. Still a little weak, but okay to work on this on her own at this point in time. Goals Goal 1:: LTG: Pt. to be I with HEP for L shoulder ROM and strengthening. Goal Progress: Goal Met Goal 2:: STG: Pt to have increased PROM of L shoulder to 110deg of flexion, 30deg of ER at side. Goal Progress: Goal Met Goal 3:: LTG: pt. to have increased L shoulder AROM allowing her to complete all ADLs and functional mobility. Goal Progress: Progressing Goal 4:: LTG: Pt. to have increased strength symmetrical to R shoulder. Goal Progress: Progressing Goal 5:: STG: Pt. to sleep throughout the night without increase in L shoulder pain. Goal Progress: Goal Met Plan Plan: Pt. desires to be done with PT at this point in time. I am okay with this as long as she continues to work on her ROm and strengthening. She has HEp for both. Pt. consents. D/C Information Discharge Comments: Pt. will be DC from PT at this point in time, but instructed to continue with her HEP for strengthening and ROM of her L shoulder. Pt. consents. d/c sentence: If there are questions or concerns regarding this patient's physical therapy, please feel free to call me at [phone]. Thank you for the referral of this patient. Sincerely, Howard Mendoza, DPT Balance/Gait/Functional tests Balance/Special Test Scores Quick DASH Score: 18.1800 Improvement % Improvement: 75
== END 2023-09-27 09:59 | disposition home or self-care (01) ==
LOC: PT 09:00
PROVIDERS: Referring Provider Orthopaedic Surgery Sports Medicine; Visit Provider Orthopaedic Surgery Sports Medicine
DX: M19.012 Primary osteoarthritis, left shoulder (principal)
CPT/HCPCS: 97110; 97140; 97161; 97530

== ENCOUNTER 2024-01-13 13:34 | Observation (INO) | payer MEDICARE, SELFPAY ==
[2024-01-13] VITALS (9 sets, daily range): BP systolic 91–155; BP diastolic 45–78; PULSE 74–87; RESP 16–19; TEMP 36.4–37.1; O2SAT 94–100; BMI 40.2; BMI 42.0
[2024-01-13 13:58] LABS: Bedside Glucose 171 mg/dL (74-106)
--- NOTE | 2024-01-13 14:10 | RAD_ITS ---
STUDY: XR Chest 1 View 01/13/2024 3:05 PM REASON FOR EXAM: Female, 63 years old. chest pain COMPARISON: 6.14.23 TECHNIQUE: XR Chest 1 View FINDINGS: There is no demonstrated pleural abnormality. Total left shoulder arthroplasty. Normal heart size. Normal mediastinum. Normal karen. Prominent appearing increased interstitial lung markings. Normal visualized pulmonary arteries. There is atherosclerotic calcification of the aortic arch with tortuosity. There are diffuse degenerative changes of the visualized thoracic spine. There is degenerative osteoarthritis of the bilateral shoulders. There are no acute findings of the upper abdomen. RAD/Chest 1 View (Portable) IMPRESSION: There are no acute findings. Electronically Signed: Bebeto Nair MD at 15:33 EDT ,
--- NOTE | 2024-01-13 14:10 | EKG12_ITS ---
Test Reason : DIZZINESS Blood Pressure : / mmHG Vent. Rate : 083 BPM Atrial Rate : 083 BPM P-R Int : 180 ms QRS Dur : 082 ms QT Int : 366 ms P-R-T Axes : 053 017 056 degrees QTc Int : 430 ms Normal sinus rhythm Possible Left atrial enlargement Borderline ECG Confirmed by Lucas Kimbrough ([id number]), editor publications PATSY KEENE ([id number]) on 01/15/2024 7:51:46 AM Referred By: Confirmed By:Lucas Kimbrough
--- NOTE | 2024-01-13 14:20 | CT_ITS ---
EXAM: CT ANGIOGRAPHY HEAD AND NECK WITH INTRAVENOUS CONTRAST CLINICAL INDICATION: Dizziness TECHNIQUE: [place]/head and neck CT angiography protocol performed with intravenous contrast. This CT exam was performed using one or more of the following dose reduction techniques: automated exposure control, adjustment of the mA and/or kV according to patient size, and/or use of iterative reconstruction technique. MIP reconstructed images were created and reviewed. CONTRAST: IV 100mL Isovue-370 RADIATION DOSE: CTDIvol = 28.80 mGy, DLP = 1595.21 mGy-cm COMPARISON: No relevant prior studies available. FINDINGS: HEAD: RIGHT ANTERIOR CEREBRAL ARTERY: Unremarkable. No occlusion or significant stenosis. Anterior communicating artery is present. No aneurysm. RIGHT MIDDLE CEREBRAL ARTERY: Unremarkable. No occlusion or significant stenosis. No aneurysm. RIGHT POSTERIOR CEREBRAL ARTERY: Unremarkable. No occlusion or significant stenosis. No aneurysm. RIGHT INTRACRANIAL INTERNAL CAROTID ARTERY: Unremarkable. No significant stenosis. No dissection or occlusion. RIGHT INTRACRANIAL VERTEBRAL ARTERY: Unremarkable. No significant stenosis. No dissection or occlusion. LEFT ANTERIOR CEREBRAL ARTERY: Unremarkable. No occlusion or significant stenosis. No aneurysm. LEFT MIDDLE CEREBRAL ARTERY: Unremarkable. No occlusion or significant stenosis. No aneurysm. LEFT POSTERIOR CEREBRAL ARTERY: Unremarkable. No occlusion or significant stenosis. No aneurysm. LEFT INTRACRANIAL INTERNAL CAROTID ARTERY: Unremarkable. No significant stenosis. No dissection or occlusion. LEFT INTRACRANIAL VERTEBRAL ARTERY: Unremarkable. No significant stenosis. No dissection or occlusion. BASILAR ARTERY: Unremarkable. No occlusion or significant stenosis. No aneurysm. OTHER VASCULATURE: There is calcified plaque formation of the right cavernous carotid artery, with a mild stenosis (less than 50%). ALL ABOVE CRITERIA BY NASCET. There is calcified plaque formation of the left cavernous carotid artery, with a mild stenosis (less than 50%). ALL ABOVE CRITERIA BY NASCET. No vascular malformation. BRAIN AND EXTRA-AXIAL SPACES: There is no intracranial hemorrhage. There are no findings of an acute ischemic infarction. Normal size ventricles and extra-axial spaces for the patient''s age. Normal white matter tracts of the cerebral hemispheres. Normal basal ganglia and thalami. Normal brainstem. Normal cerebellum. SINUSES: Unremarkable as visualized. Normal visualized paranasal sinuses. NECK: RIGHT COMMON CAROTID ARTERY: Unremarkable. No significant stenosis. No dissection or occlusion. RIGHT EXTRACRANIAL INTERNAL CAROTID ARTERY: There is mild atherosclerotic plaque formation of the origin of the right internal carotid artery with less than 50% cross sectional diameter stenosis. ALL ABOVE CRITERIA BY NASCET. No dissection or occlusion. RIGHT EXTERNAL CAROTID ARTERY: Unremarkable. No occlusion. RIGHT EXTRACRANIAL VERTEBRAL ARTERY: Unremarkable. No significant stenosis. No dissection or occlusion. LEFT COMMON CAROTID ARTERY: Unremarkable. No significant stenosis. No dissection or occlusion. LEFT EXTRACRANIAL INTERNAL CAROTID ARTERY: There is mild atherosclerotic plaque formation of the origin of the left internal carotid artery with less than 50% cross sectional diameter stenosis. ALL ABOVE CRITERIA BY NASCET. No dissection or occlusion. LEFT EXTERNAL CAROTID ARTERY: Unremarkable. No occlusion. LEFT EXTRACRANIAL VERTEBRAL ARTERY: Unremarkable. No significant stenosis. No dissection or occlusion. BRACHIOCEPHALIC AND SUBCLAVIAN ARTERIES: Unremarkable as visualized. No occlusion or significant stenosis. LUNG APICES: Unremarkable as visualized. HEAD and NECK: BONES/JOINTS: There are degenerative findings of the cervical spine. No discrete lytic or blastic abnormalities. SOFT TISSUES: Unremarkable. OTHER FINDINGS: Post-processing of the images was performed, with axial imaging and 3D reconstruction. MIPS images were obtained. CAROTID STENOSIS REFERENCE USING NASCET CRITERIA: % ICA stenosis = (1 - narrowest ICA diameter/diameter of distal cervical ICA) x 100. Mild - <50% stenosis. Moderate - 50-69% stenosis. Severe - 70-94% stenosis. Near occlusion - 95-99% stenosis. Occluded - 100% stenosis. CT/CTA Head AND Neck W/ Contrast IMPRESSION: 1. There is mild atherosclerotic plaque formation of the origin of the right internal carotid artery with less than 50% cross sectional diameter stenosis. ALL ABOVE CRITERIA BY NASCET. 2. There is mild atherosclerotic plaque formation of the origin of the left internal carotid artery with less than 50% cross sectional diameter stenosis. ALL ABOVE CRITERIA BY NASCET. 3. There is calcified plaque formation of the right cavernous carotid artery, with a mild stenosis (less than 50%). ALL ABOVE CRITERIA BY NASCET. 4. There is calcified plaque formation of the left cavernous carotid artery, with a mild stenosis (less than 50%). ALL ABOVE CRITERIA BY NASCET. Electronically Signed: Bebeto Nair MD at 15:46 EDT ,
--- NOTE | 2024-01-13 14:21 | EX.ED.DYSGE1 ---
HPI History of Present Illness Chief Complaint: Dizziness Narrative Narrative: Chief complaint and HPI: Dizziness. 63-year-old female with history of COPD, HLD, HTN, DM2 presents for evaluation of dizziness. Onset of symptoms was this morning. Patient states she woke up with dizziness. She describes it as being unsteady on her feet. She denies any room spinning. Patient states she has history of vertigo 20 years ago and that this is significantly different. Her last known normal was yesterday evening. Patient states she has difficulty ambulating around the house and frequently feels like she is going to fall. She has baseline tinnitus. No history of M?ni?re's disease. Denies any fever, chills, shortness of breath, chest pain abdominal pain, nausea, vomiting, dysuria, neurological deficit, weakness, numbness/tingling, difficulty speaking, vision changes, headache, URI symptoms. Review of systems: See HPI Medications: As listed on the chart Allergies: As listed on the chart PFSH: Per chart Vital signs: As listed on the chart. Reviewed. Physical exam: Gen: A&O x3, NAD Head: Normocephalic, atraumatic Eyes: No sclera icterus, conjunctiva clear, PERRL, EOMI ENT: Moist mucous membranes, No facial asymmetry, tympanic membranes clear bilaterally Neck: Trachea midline, No JVD CV: RRR, no murmurs, no peripheral edema Resp: Lungs CTA BL, no w/r/c GI: Abd soft, non-distended, non-tender, no r/r/g Musc: Full ROM, no deformity, strength +5/5 in all extremities, no pronator drift, no ataxia with utubzp-bq-oiva or vbro-vn-erwm testing however has ataxic gait with wide-based stance-very unsteady on her feet Skin: Warm, dry, intact Neuro: Alert, oriented, grossly intact, sensation intact Psych: Cooperative, appropriate mood and affect [facility] Medical History Tinnitus Loss of hearing MRSA infection Alcohol use Diabetes Ambulates with cane Low iron Anemia High cholesterol Dietary restriction History of ulceration GERD (gastroesophageal reflux disease) CPAP (continuous positive airway pressure) dependence Right hip pain Wears dentures Wears glasses Post-menopausal Anxiety Arthritis Excessive bleeding Back pain Syncope Gastric reflux Sleep apnea Smoker Asthma COPD (chronic obstructive pulmonary disease) Shortness of breath on exertion Chronic cough Leg cramps History of edema History of echocardiogram History of stress test Cardiology follow-up encounter Left rotator cuff tear Primary osteoarthritis, left shoulder Internal impingement of left shoulder Left shoulder pain Atherosclerotic heart disease of [place] coronary artery without angina pectoris History of left heart catheterization (LHC) (~09/27/21) Abnormal stress test Bronchitis Palpitations Type 2 diabetes mellitus Diabetes COVID-19 MRSA (methicillin resistant staph aureus) culture positive Hypertension Vertigo Fracture, tibial plateau Depression Home Medications ?Medication ?Instructions ?Recorded ?Last Taken ?Type metformin 1,000 mg tablet 1,000 mg PO BID DM 04/14/20 01/12/24 History montelukast 10 mg tablet 10 mg PO DAILY 04/14/20 01/12/24 History omeprazole 20 mg capsule,delayed 20 mg PO QHS GERD 04/14/20 01/12/24 History release sertraline 100 mg tablet 150 mg PO DAILY 04/14/20 01/12/24 History fluticasone propionate 50 2 spray intranasal DAILY Wheezing 08/03/21 01/12/24 History mcg/actuation nasal spray,suspension mometasone-formoterol HFA 200 2 inh inhalation PRN Wheezing 08/03/21 01/02/24 History mcg-5 mcg/actuation aerosol inhaler LightSpeed Retail 1 tablet PO DAILY 08/11/21 01/12/24 History naproxen sodium 220 mg tablet 220 mg PO BID PRN Pain 08/11/21 07/24/23 History aspirin 81 mg tablet,delayed 81 mg PO DAILY 09/13/21 01/12/24 History release (Adult Low Dose Aspirin) compress.stocking,knee,reg,lrg #2 ea 09/01/22 Unknown Rx (Relief Knee Close Toe Stocking) compression socks, large #2 ea 09/01/22 Unknown Rx bupropion HCl 150 mg 24 hr tablet, 150 mg PO DAILY 09/20/22 01/12/24 History extended release polyethylene glycol 3350 17 gram 17 g PO DAILY 09/20/22 01/13/24 History oral powder packet (Miralax) trazodone 50 mg tablet 50 mg PO QHS 09/20/22 01/12/24 History hydrochlorothiazide 25 mg tablet 25 mg PO DAILY 01/04/23 01/12/24 History budesonide 160 mcg-glycopyr 9 2 inh inhalation BID 07/04/23 01/12/24 History mcg-formot 4.8 mcg/actuation HFA inhaler (Breztri Aerosphere) cartilage 40 mg-collagen II-boron 1 tab PO QHS 07/04/23 01/12/24 History 5 mg-hyaluronate sod 3.3 mg tablet (Move Free Ultra Triple Action (boron)) cholecalciferol (vitamin D3) 1,250 1,250 mcg PO FR 07/04/23 01/11/24 History mcg (50,000 unit) capsule mecobalamin (vitamin B12) 5,000 5,000 mcg PO QHS 07/04/23 01/12/24 History mcg chewable tablet draeneju-qcec-ectf 8 mg-folic 400 1 tab PO DAILY 07/04/23 01/12/24 History mcg-K 50 mcg-lutein 300 mcg tablet (Centrum Silver Women) atorvastatin 20 mg tablet 20 mg PO QHS #90 tabs 10/31/23 01/12/24 Rx ferrous sulfate 325 mg (65 mg 325 mg PO ONCE SUPPLEMENT 01/08/24 01/12/24 History iron) tablet dulaglutide 3 mg/0.5 mL 3 mg subcut QWEEK 01/13/24 01/09/24 History subcutaneous pen injector (Trulicity) loratadine 10 mg tablet 10 mg PO DAILY 01/13/24 01/12/24 History losartan 100 mg tablet 100 mg PO DAILY 01/13/24 01/12/24 History mirabegron 50 mg tablet,extended 50 mg PO DAILY 01/13/24 01/12/24 History release 24 hr (Myrbetriq) Allergy/AdvReac Type Severity Reaction Status Date / Time isoniazid Allergy Other Verified 01/08/24 13:18 Family History Brother Atrial fibrillation Grandfather Myocardial infarction Grandmother Myocardial infarction Mother Dementia CAD (coronary artery disease) Hypertension Father COPD (chronic obstructive pulmonary disease) Hypertension Cancer Prostate, Colon, Surgical History History of esophagogastroduodenoscopy (EGD) History of colonoscopy History of shoulder surgery History of cardiac catheterization Hx of eye surgery Hx laparoscopic cholecystectomy Hx of section Hx of right knee surgery H/O: hysterectomy Social History household members: none current occupational exposures/hazards: No history of recent travel: No Smoking Status: Current every day smoker tobacco type: cigarettes alcohol intake: current alcohol intake frequency: holidays/special occasions only substance use type: does not use caffeine: Yes Type: coffee Number of servings: 5 EXAM Physical Exam Const Vital Signs: 01/13/24 13:38 01/13/24 14:10 01/13/24 14:34 Temperature 98.8 F Temperature Source Oral Pulse Rate 87 79 Respiratory Rate 18 16 Blood Pressure 155/70 H 125/60 H Blood Pressure Mean 98 81 Pulse Ox 97 100 Oxygen Delivery Method Room Air Room Air Room Air 01/13/24 15:00 01/13/24 16:00 Temperature Temperature Source Pulse Rate 77 78 Respiratory Rate 16 16 Blood Pressure 138/61 H 143/45 H Blood Pressure Mean 86 77 Pulse Ox 100 100 Oxygen Delivery Method Room Air Room Air MDM MDM MDM Narrative Medical decision making narrative: 63-year-old female presents for evaluation of dizziness. Onset was when she woke up. Last known normal was yesterday evening. See physical exam findings. Differential diagnosis includes but is not limited to CVA, UTI, electrolyte abnormality, ACS, anemia, KENDY. Patient is outside the stroke window given her last known normal was yesterday evening. Dizziness workup ordered. Vitals are stable other than mild hypertension. CBC without leukocytosis or anemia. BMP relatively unremarkable. No KENDY. Magnesium unremarkable. Troponin unremarkable x 2. UA positive for UTI. Culture sent. Rocephin ordered. CT head without any acute intracranial abnormality. No significant stenosis on CTA neck and head. On reexamination, patient is still endorsing dizziness. She is still unable to ambulate. Patient was educated that her dizziness may be secondary to her UTI however cannot rule out a posterior stroke without MRI brain. Patient was updated on all her results and recommendation for admission. Patient originally declined admission and states that she wants to discharge home. I did explain to her that this is unsafe given that she can barely ambulate and increases the chances of falls. She still states she wants to discharge home. After an extensive discussion about risks and benefits of staying versus discharging home as well as her concerns about admission patient is agreeable to admission. Dr. Mitchell was consulted for admission and patient was discussed. She accepted admission. EKG: Interpreted by me/EM physician: EKG shows normal sinus rhythm with a heart rate of 83. No acute ischemic changes. Diagnostic: Interpreted by me/EM physician: Chest x-ray without pneumonia, effusion, pneumothorax, cardiomegaly Impression: 1. Dizziness 2. UTI 3. Concern for possible posterior CVA 4. Hyperglycemia with known diabetes Lab Data Labs: Laboratory Results - last 24 hr 01/13/24 01/13/24 01/13/24 13:40 13:45 14:57 WBC 7.4 RBC 4.73 Hgb 12.0 Hct 38.3 MCV 81.0 MCH 25.4 L MCHC 31.3 L RDW Std Deviation 48.4 H RDW Coeff of Christina 16.5 H Plt Count 279 MPV 10.4 Immature Gran % (Auto) 0.100 Neut % (Auto) 74.3 H Lymph % (Auto) 18.4 L [place] % (Auto) 4.5 Eos % (Auto) 2.3 Baso % (Auto) 0.4 Absolute Neuts (auto) 5.5 Absolute Lymphs (auto) 1.35 Nucleated RBC % 0 Sodium 134 L Potassium 3.6 Chloride 101 Carbon Dioxide 27.0 Anion Gap 6 BUN 16 Creatinine 0.74 Estim Creat Clear Calc 80.40 Est GFR (MDRD) Af Amer 102 Est GFR (MDRD) Non-Af 84 BUN/Creatinine Ratio 21.7 H Glucose 165 H Calcium 10.0 Magnesium 1.9 Troponin I High Sens 9 Urine Color Yellow Urine Clarity Sl. Cloudy Urine pH 6.5 Ur Specific [place] 1.010 Urine Protein 15 H Urine Glucose (UA) Normal Urine Ketones Negative Urine Occult Blood 10 H Urine Nitrite Positive H Urine Bilirubin Negative Urine Urobilinogen Normal Ur Leukocyte Esterase 500 H Urine RBC 0 SEEN Urine WBC 5-10 SEEN Ur Squamous Epith Cells 0-5 SEEN Ur Transition Epith Cell 0-5 SEEN Urine Bacteria 2+ Urine Mucus 0 SEEN POC Glucose 171 H 01/13/24 16:40 WBC RBC Hgb Hct MCV MCH MCHC RDW Std Deviation RDW Coeff of [place] Plt Count MPV Immature Gran % (Auto) Neut % (Auto) Lymph % (Auto) [place] % (Auto) Eos % (Auto) Baso % (Auto) Absolute Neuts (auto) Absolute Lymphs (auto) Nucleated RBC % Sodium Potassium Chloride Carbon Dioxide Anion Gap BUN Creatinine Estim Creat Clear Calc Est GFR (MDRD) Af Amer Est GFR (MDRD) Non-Af BUN/Creatinine Ratio Glucose Calcium Magnesium Troponin I High Sens 8 Urine Color Urine Clarity Urine pH Ur Specific [place] Urine Protein Urine Glucose (UA) Urine Ketones Urine Occult Blood Urine Nitrite Urine Bilirubin Urine Urobilinogen Ur Leukocyte Esterase Urine RBC Urine WBC Ur Squamous Epith Cells Ur Transition Epith Cell Urine Bacteria Urine Mucus POC Glucose Radiography Diagnostic Testing: Clinical Impression(s) from Imaging Studies Chest X-Ray 01/13/24 14:10 IMPRESSION: There are no acute findings. Electronically Signed: Bebeto Nari MD at 15:33 EDT , Head/Neck CTA 01/13/24 14:20 IMPRESSION: 1. There is mild atherosclerotic plaque formation of the origin of the right internal carotid artery with less than 50% cross sectional diameter stenosis. ALL ABOVE CRITERIA BY NASCET. 2. There is mild atherosclerotic plaque formation of the origin of the left internal carotid artery with less than 50% cross sectional diameter stenosis. ALL ABOVE CRITERIA BY NASCET. 3. There is calcified plaque formation of the right cavernous carotid artery, with a mild stenosis (less than 50%). ALL ABOVE CRITERIA BY NASCET. 4. There is calcified plaque formation of the left cavernous carotid artery, with a mild stenosis (less than 50%). ALL ABOVE CRITERIA BY NASCET. Electronically Signed: Bebeto Nair MD at 15:46 EDT , Discharge Plan Disposition Disposition: Acute Care Hospital [facility] Discharge Date/Time: 01/13/24 17:16
[2024-01-13 14:37] LABS: Absolute Lymphocyte Count 1.35 X10^3/uL (0.83-4.51); Absolute Neutrophil Count 5.5 X10^3/uL (2.0-7.7); Basophil# 0.03 X10^3/uL; Basophil% 0.4 % (0-1); Eosinophil# 0.17 X10^3/uL; Eosinophils% 2.3 % (0-5); Hematocrit 38.3 % (37-47); Lymphocyte # 1.35 X10^3/ul (0.83-4.51); Lymphocyte % 18.4 % (19-41); Mean Corp Hgb Conc 31.3 g/dL (32-36); Mean Corpuscular Hgb 25.4 pg (27.0-32.0); Mean Platelet Vol. 10.4 fl (6.2-12.0); Monocyte# 0.33 X10^3/uL; Monocyte% 4.5 % (0-10); NRBC Flagged by Analyzer 0 % (0-5); Neutrophil # 5.46 X10^3/uL (2.7-7.7); Neutrophil % 74.3 % (47-70); Platelet Count 279 K/mm3 (150-450); RBC Distribution Width CV 16.5 % (11.6-14.6); RBC Distribution Width SD 48.4 fl (35.1-43.9); Red Blood Count 4.73 M/mm3 (4.2-5.4); White Blood Count 7.4 K/mm3 (4.4-11.0)
[2024-01-13 14:53] LABS: Anion Gap 6 (5-15); BUN 16 mg/dL (7-18); BUN/Creat Ratio 21.7 RATIO (10-20); Chloride 101 mmol/L (98-107); Creatinine, Serum 0.74 mg/dL (0.55-1.02); EST Glomerular Filtration Rate 84 mL/min (>60); Est Glom Filt Rate - Afr Amer 102 mL/min (>60); Glucose 165 mg/dL (74-106); Magnesium 1.9 mg/dL (1.6-2.6); Potassium 3.6 mmol/L (3.5-5.1); Sodium Level 134 mmol/L (136-145); Troponin-I HS (w/2H Reflex) 9 pg/mL (3.0-54.0)
[2024-01-13 15:03] LABS: Mucous, Urine 0 SEEN /hpf (<or=2+); Red Blood Cells-Urine 0 SEEN /hpf (0-5)
[2024-01-13 15:09] LABS: Color, Urine Yellow (Yellow); Glucose, Dipstick Normal (Normal); Ketone-Dipstick Negative (Negative); Leukocyte Esterase-Dipstick 500 /ul (Negative); Nitrite-Dipstick Positive (Negative); Occult Blood-Urine 10 /ul (Negative); Protein-Dipstick 15 mg/dl (Negative); Urine Bilirubin Dipstick Negative (Negative); Urine Clarity Sl. Cloudy (Clear); Urine Urobilinogen Normal (Normal); Urine pH 6.5 (5.0 - 8.0)
[2024-01-13 15:17] LABS: Squamous Epithelial Cells - UA 0-5 SEEN /hpf (5-10); Transitional Epithelial - Ur 0-5 SEEN /hpf (0-5); White Blood Cells 5-10 SEEN /hpf (0-5)
[2024-01-13 15:18] LABS: Bacteria 2+ /hpf (None Seen)
[2024-01-13] MEDS: Ceftriaxone 1 GM/50 ML BAG IV (16:19)
[2024-01-13 16:28] LABS: Reflex Troponin-HS? (from REC) Y
--- NOTE | 2024-01-13 16:53 | PCM.HP.STD ---
HPI - General General Date of Admission: 01/13/24 Date of Service: 01/13/24 Chief Complaint: Off balance HPI Narrative DAPHNEY MEADE, is a 63 F with history of diabetes, GERD, obesity, hypertension, COPD who presented [facility] ED 01/13/2024 with dizziness and abnormal gait. In the ED she had stroke rule out due to concern for posterior stroke but CTA unremarkable. Patient was noted to have a UA concerning for UTI and given Rocephin hospitalist contacted for admission for CVA rule out. Patient evaluated bedside she reports she woke up this a.m. and and felt very unsteady on her feet and off balance, does not feel the room is spinning. Has had vertigo before and feels this is very different. She has no other focal complaints, no chest pain, shortness of breath, cough, changes in vision. Does not necessarily feel any burning on urination, reports she did have some brief left-sided flank pain that has resolved, felt a little nauseous earlier as well but this is also resolved. Feels unsteady feeling even sitting down, sometimes will feel lightheaded but reports that that is not the predominant feeling. No headache, no abdominal pain. [facility] Medical History Tinnitus Loss of hearing MRSA infection Alcohol use Diabetes Ambulates with cane Low iron Anemia High cholesterol Dietary restriction History of ulceration GERD (gastroesophageal reflux disease) CPAP (continuous positive airway pressure) dependence Right hip pain Wears dentures Wears glasses Post-menopausal Anxiety Arthritis Excessive bleeding Back pain Syncope Gastric reflux Sleep apnea Smoker Asthma COPD (chronic obstructive pulmonary disease) Shortness of breath on exertion Chronic cough Leg cramps History of edema History of echocardiogram History of stress test Cardiology follow-up encounter Left rotator cuff tear Primary osteoarthritis, left shoulder Internal impingement of left shoulder Left shoulder pain Atherosclerotic heart disease of [place] coronary artery without angina pectoris History of left heart catheterization (LHC) (~09/27/21) Abnormal stress test Bronchitis Palpitations Type 2 diabetes mellitus Diabetes COVID-19 MRSA (methicillin resistant staph aureus) culture positive Hypertension Vertigo Fracture, tibial plateau Depression Home Medications ?Medication ?Instructions ?Recorded ?Last Taken ?Type metformin 1,000 mg tablet 1,000 mg PO BID DM 04/14/20 01/12/24 History montelukast 10 mg tablet 10 mg PO DAILY 04/14/20 01/12/24 History omeprazole 20 mg capsule,delayed 20 mg PO QHS GERD 04/14/20 01/12/24 History release sertraline 100 mg tablet 150 mg PO DAILY 04/14/20 01/12/24 History fluticasone propionate 50 2 spray intranasal DAILY Wheezing 08/03/21 01/12/24 History mcg/actuation nasal spray,suspension mometasone-formoterol HFA 200 2 inh inhalation PRN Wheezing 08/03/21 01/02/24 History mcg-5 mcg/actuation aerosol inhaler Brain health 1 tablet PO DAILY 08/11/21 01/12/24 History naproxen sodium 220 mg tablet 220 mg PO BID PRN Pain 08/11/21 07/24/23 History aspirin 81 mg tablet,delayed 81 mg PO DAILY 09/13/21 01/12/24 History release (Adult Low Dose Aspirin) compress.stocking,knee,reg,lrg #2 ea 09/01/22 Unknown Rx (Relief Knee Close Toe Stocking) compression socks, large #2 ea 09/01/22 Unknown Rx bupropion HCl 150 mg 24 hr tablet, 150 mg PO DAILY 09/20/22 01/12/24 History extended release polyethylene glycol 3350 17 gram 17 g PO DAILY 09/20/22 01/13/24 History oral powder packet (Miralax) trazodone 50 mg tablet 50 mg PO QHS 09/20/22 01/12/24 History hydrochlorothiazide 25 mg tablet 25 mg PO DAILY 01/04/23 01/12/24 History budesonide 160 mcg-glycopyr 9 2 inh inhalation BID 07/04/23 01/12/24 History mcg-formot 4.8 mcg/actuation HFA inhaler (Breztri Aerosphere) cartilage 40 mg-collagen II-boron 1 tab PO QHS 07/04/23 01/12/24 History 5 mg-hyaluronate sod 3.3 mg tablet (Move Free Ultra Triple Action (boron)) cholecalciferol (vitamin D3) 1,250 1,250 mcg PO FR 07/04/23 01/11/24 History mcg (50,000 unit) capsule mecobalamin (vitamin B12) 5,000 5,000 mcg PO QHS 07/04/23 01/12/24 History mcg chewable tablet [id number] 8 mg-folic 400 1 tab PO DAILY 07/04/23 01/12/24 History mcg-K 50 mcg-lutein 300 mcg tablet (Centrum Silver Women) atorvastatin 20 mg tablet 20 mg PO QHS #90 tabs 10/31/23 01/12/24 Rx ferrous sulfate 325 mg (65 mg 325 mg PO ONCE SUPPLEMENT 01/08/24 01/12/24 History iron) tablet dulaglutide 3 mg/0.5 mL 3 mg subcut QWEEK 01/13/24 01/09/24 History subcutaneous pen injector (Trulicity) loratadine 10 mg tablet 10 mg PO DAILY 01/13/24 01/12/24 History losartan 100 mg tablet 100 mg PO DAILY 01/13/24 01/12/24 History mirabegron 50 mg tablet,extended 50 mg PO DAILY 01/13/24 01/12/24 History release 24 hr (Myrbetriq) Allergy/AdvReac Type Severity Reaction Status Date / Time isoniazid Allergy Other Verified 01/08/24 13:18 Family History Brother Atrial fibrillation Grandfather Myocardial infarction Grandmother Myocardial infarction Mother Dementia CAD (coronary artery disease) Hypertension Father COPD (chronic obstructive pulmonary disease) Hypertension Cancer Prostate, Colon, Surgical History History of esophagogastroduodenoscopy (EGD) History of colonoscopy History of shoulder surgery History of cardiac catheterization Hx of eye surgery Hx laparoscopic cholecystectomy Hx of section Hx of right knee surgery H/O: hysterectomy Social History household members: none current occupational exposures/hazards: No history of recent travel: No Smoking Status: Current every day smoker tobacco type: cigarettes alcohol intake: current alcohol intake frequency: holidays/special occasions only substance use type: does not use caffeine: Yes Type: coffee Number of servings: 5 ROS ROS Narrative General: Denies fever/chills HENT: Denies headache, denies stuffy nose, denies sore throat EYES: Denies changes in vision Resp: Denies cough, denies shortness of breath Cardiac: Denies chest pain GI: Denies abdominal pain, denies changes in bowel, did have a little bit of nausea earlier : Denies changes in urination, did feel she had some left-sided flank pain earlier that resolved Extremity: Denies swelling MSK: Denies weakness Neuro: Denies any numbness/tingling, feels just generally unsteady and off-balance Heme: Denies any bleeding or bruising Skin: Denies rashes Psychiatric: No complaints voiced Vital Signs Vital Signs Vital Signs: 01/13/24 13:38 01/13/24 14:10 01/13/24 14:34 Temperature 98.8 F Temperature Source Oral Pulse Rate 87 79 Respiratory Rate 18 16 Blood Pressure 155/70 H 125/60 H Blood Pressure Mean 98 81 Pulse Ox 97 100 Oxygen Delivery Method Room Air Room Air Room Air 01/13/24 15:00 01/13/24 16:00 Temperature Temperature Source Pulse Rate 77 78 Respiratory Rate 16 16 Blood Pressure 138/61 H 143/45 H Blood Pressure Mean 86 77 Pulse Ox 100 100 Oxygen Delivery Method Room Air Room Air Weight Weight: 103 kg Body Mass Index (BMI) 40.2 Physical Exam Narrative General: Alert, oriented, no apparent distress HEENT: Atraumatic, normocephalic Eyes: Anicteric, normal conjunctiva, patient has exotropia at baseline is a difficult to fully assess her extraocular movements, no sustained nystagmus appreciated Neck: Supple Respiratory: Clear to auscultation bilaterally, normal respiratory effort Cardiovascular: Regular rate and rhythm GI: Soft, nontender, nondistended Extremities: No edema Musculoskeletal: Strength 5 out of 5 in right upper extremity, 5 - out of 5 left upper extremity which is chronic after her shoulder surgery, 5 out of 5 right lower extremity, 5 out of 5 left lower extremity Neuro: No overt focal neurological deficits aside from known exotropia, cranial nerves II through XII intact, [id number] without significant difficulty bilaterally Skin: No rashes appreciated Psych: Cooperative Results Lab / Micro Data 01/13/24 13:45 01/13/24 13:45 Labs: Laboratory Results - last 24 hr 01/13/24 13:40: POC Glucose 171 H 01/13/24 13:45: WBC 7.4, RBC 4.73, Hgb 12.0, Hct 38.3, MCV 81.0, MCH 25.4 L, MCHC 31.3 L, RDW Std Deviation 48.4 H, RDW Coeff of Christina 16.5 H, Plt Count 279, MPV 10.4, Immature Gran % (Auto) 0.100, Neut % (Auto) 74.3 H, Lymph % (Auto) 18.4 L, [place] % (Auto) 4.5, Eos % (Auto) 2.3, Baso % (Auto) 0.4, Absolute Neuts (auto) 5.5, Absolute Lymphs (auto) 1.35, Nucleated RBC % 0, Sodium 134 L, Potassium 3.6, Chloride 101, Carbon Dioxide 27.0, Anion Gap 6, BUN 16, Creatinine 0.74, Estim Creat Clear Calc 80.40, Est GFR (MDRD) Af Amer 102, Est GFR (MDRD) Non-Af 84, BUN/Creatinine Ratio 21.7 H, Glucose 165 H, Calcium 10.0, Magnesium 1.9, Troponin I High Sens 9 01/13/24 14:57: Urine Color Yellow, Urine Clarity Sl. Cloudy, Urine pH 6.5, Ur Specific [place] 1.010, Urine Protein 15 H, Urine Glucose (UA) Normal, Urine Ketones Negative, Urine Occult Blood 10 H, Urine Nitrite Positive H, Urine Bilirubin Negative, Urine Urobilinogen Normal, Ur Leukocyte Esterase 500 H, Urine RBC 0 SEEN, Urine WBC 5-10 SEEN, Ur Squamous Epith Cells 0-5 SEEN, Ur Transition Epith Cell 0-5 SEEN, Urine Bacteria 2+, Urine Mucus 0 SEEN Imaging Radiology Impression Chest X-Ray 01/13/24 14:10 IMPRESSION: There are no acute findings. Electronically Signed: Bebeto Nair MD at 15:33 EDT Reading Location ID and State: [id number] / [place] , Service support , Head/Neck CTA 01/13/24 14:20 IMPRESSION: 1. There is mild atherosclerotic plaque formation of the origin of the right internal carotid artery with less than 50% cross sectional diameter stenosis. ALL ABOVE CRITERIA BY NASCET. 2. There is mild atherosclerotic plaque formation of the origin of the left internal carotid artery with less than 50% cross sectional diameter stenosis. ALL ABOVE CRITERIA BY NASCET. 3. There is calcified plaque formation of the right cavernous carotid artery, with a mild stenosis (less than 50%). ALL ABOVE CRITERIA BY NASCET. 4. There is calcified plaque formation of the left cavernous carotid artery, with a mild stenosis (less than 50%). ALL ABOVE CRITERIA BY NASCET. Electronically Signed: Bebeto Nair MD at 15:46 EDT , Assessment & Plan Assessment/Plan (1) Dizziness: PLAN: Plan # Persistent feeling of unsteadiness/dizziness/off-balance -Admit to tele -CTA head and neck no acute process -MRI ordered -[facility] q4hr -asa, statin -Echo w/ bubble study -PT/OT/Speech eval -Teleneuro consult for the AM -Hold BP medications to allow for permissive hypertension for 24 hours unless SBP greater than 220 or DBP greater than 120 or until stroke is ruled out # Suspect UTI -UA concerning for UTI -Continue Rocephin -Await urine culture # History of COPD -Not presently in exacerbation -Continue inhalers # Hypertension -Hold to allow for permissive hypertension at this time #Morbid obesity -BMI documented as 40.2 kg/m? at time of admission -Complicates treatment, prognosis, outcomes -Recommend weight loss and lifestyle changes #GERD -Continue PPI #Type 2 diabetes mellitus -Glucose checks and sliding scale insulin #Tobacco use -Advise cessation -Nicotine replacement available if desired #Depression -Continue home medication #DVT ppx: Lovenox subcu Renu Mitchell MD Charges/Coding Visit Charges Inpatient E&M: 82904 Init Hosp L2
[2024-01-13 17:06] LABS: Troponin-I HS 8 pg/mL (3.0-54.0)
--- NOTE | 2024-01-13 17:10 | ECHOD_ITS ---
Reason For Study: TIA/STROKE Procedure This was a 2D Doppler, Color Flow transthoracic echocardiogram. Exam performed portable in patient room. Left Ventricle Normal LV size. The estimated ejection fraction is 65 %. Unable to assess diastolic dysfunction. No regional wall motion abnormalities noted. Right Ventricle Normal RV size. Normal systolic function. Atria The left and right atria are normal. No doppler evidence for ASD. Bubble contrast study negative for right to left interatrial shunt. Mitral Valve There is moderate mitral annular calcification. There is no mitral valve stenosis. Trivial mitral valve insufficiency. Tricuspid Valve There is no tricuspid stenosis. Trivial tricuspid valve insufficiency. Unable to estimate RV systolic pressure due to insufficient tricuspid regurgitant envelope. Aortic Valve There is no aortic stenosis. No aortic valve insufficiency. Pulmonic Valve There is no pulmonic valvular stenosis. No pulmonic valve insufficiency. Great Vessels Normal aortic root. Pericardium/Pleural Small pericardial effusion. Medication Performed a rapid injection of agitated mix of 9 cc saline and 1cc air to assess for atrial septal defect. MMode/2D Measurements & Calculations LVIDd: 4.5 cm IVSd: 1.0 cm Ao root diam: 3.2 cm LVIDs: 3.3 cm LVPWd: 1.3 cm RVDd: 3.6 cm FS: 27.2 % LAV(MOD-bp): 60.7 ml LVAd ap4: 27.0 cm2 SV(MOD-sp4): 55.6 ml LAV(MOD-bp) Indexed: 30.0 ml/m2 LVLd ap4: 7.7 cm LAV(MOD-sp2): 62.4 ml EDV(MOD-sp4): 78.8 ml LAV(MOD-sp4): 60.4 ml EDV(sp4-el): 80.1 ml LVAs ap4: 13.0 cm2 LVLs ap4: 6.3 cm ESV(MOD-sp4): 23.2 ml ESV(sp4-el): 22.7 ml EF(MOD-sp4): 70.6 % EF(sp4-el): 71.7 % SV(sp4-el): 57.4 ml LA A4 area: 21.3 cm2 LA dimension(2D): 4.2 cm RA A4 area: 18.3 cm2 TAPSE: 2.3 cm Doppler Measurements & Calculations MV E max lisandro: 111.6 cm/sec Lat Peak E' Lisandro: 7.2 cm/sec Med Peak E' Lisandro: 5.0 cm/sec MV A max lisandro: 136.3 cm/sec E/E' lat: 15.6 E/E' med: 22.2 MV E/A: 0.82 MV P1/2t max lisandro: 112.2 cm/sec Ao V2 max: 189.8 cm/sec LV V1 max: 150.2 cm/sec MV P1/2t: 21.0 msec Ao max P.4 mmHg LV V1 max P.0 mmHg Ao V2 mean: 125.1 cm/sec LV V1 mean P.6 mmHg MV dec slope: 1565 cm/sec2 Ao mean P.1 mmHg LV V1 mean: 101.3 cm/sec MVA(P1/2t): 10.5 cm2 Ao V2 VTI: 40.5 cm LV V1 VTI: 31.9 cm AV (velocity ratio): 0.79 PA V2 max: 113.1 cm/sec PA V2 mean: 70.2 cm/sec ECHO/Echo Complete Interpretation Summary The estimated ejection fraction is 65 %. Unable to assess diastolic dysfunction. Trivial mitral valve insufficiency. Small pericardial effusion. Ordering Physician: Renu Mitchell Referring Physician: ALAYNA GOMES Performed By: Lou Venegas and Student
[2024-01-13] MEDS: Acetaminophen 325 MG Tablet 650 MG PO (19:27)
[2024-01-13] MEDS: Ipratropium/Albuterol Sulfate 3 ML AMPUL.NEB INHALATION (19:42)
[2024-01-13] MEDS: Budesonide Respules 0.5 MG/2 ML AMPUL.NEB. INHALATION (19:42)
[2024-01-13] MEDS: Atorvastatin Calcium 80 MG Tablet PO (21:55)
[2024-01-13] MEDS: 0.9% Saline Lock 10 ML Syringe IV (21:55)
[2024-01-13] MEDS: traZODone 50 MG Tablet PO (21:55)
[2024-01-13] MEDS: Enoxaparin 40 MG/0.4 ML Syringe SC (21:55)
[2024-01-13] MEDS: Insulin Lispro 100 UNIT/ML INSULN.PEN SC (21:55)
[2024-01-13 22:17] LABS: Bedside Glucose 155 mg/dL (74-106)
[2024-01-14] VITALS (8 sets, daily range): BP systolic 122–150; BP diastolic 65–84; PULSE 75–90; RESP 16–20; TEMP 35.9–36.9; O2SAT 95–99; BMI 42.0
[2024-01-14 06:12] LABS: Absolute Neutrophil Count 3.5 X10^3/uL (2.0-7.7); Basophil# 0.04 X10^3/uL; Basophil% 0.7 % (0-1); Eosinophil# 0.21 X10^3/uL; Eosinophils% 3.5 % (0-5); Hematocrit 38.1 % (37-47); Hemoglobin 11.9 g/dL (12.0-15.0); Lymphocyte % 30.1 % (19-41); Mean Corp Hgb Conc 31.2 g/dL (32-36); Mean Corpuscular Hgb 25.2 pg (27.0-32.0); Mean Corpuscular Volume 80.7 fL (81-99); Mean Platelet Vol. 9.9 fl (6.2-12.0); Monocyte# 0.44 X10^3/uL; Monocyte% 7.4 % (0-10); NRBC Flagged by Analyzer 0 % (0-5); Neutrophil # 3.47 X10^3/uL (2.7-7.7); Platelet Count 258 K/mm3 (150-450); RBC Distribution Width CV 16.4 % (11.6-14.6); Red Blood Count 4.72 M/mm3 (4.2-5.4)
[2024-01-14 06:44] LABS: ALB/GLOB Ratio 1.1 RATIO (0.9-2.4); AST(SGOT) 10 U/L (15-37); Alanine Aminotransfer ALT/SGPT 16 U/L (13-56); Albumin, Serum 3.4 g/dL (3.2-5.0); Alkaline Phosphatase 98 U/L (45-117); Anion Gap 4 (5-15); BUN 15 mg/dL (7-18); Calcium,Total 9.9 mg/dL (8.5-10.1); Chloride 104 mmol/L (98-107); Cholesterol 125 mg/dL (200); Creatinine, Serum 0.71 mg/dL (0.55-1.02); EST Glomerular Filtration Rate 87 mL/min (>60); Est Glom Filt Rate - Afr Amer 105 mL/min (>60); Globulin 3.2 g/dL (2.2-4.2); Glucose 135 mg/dL (74-106); High Density Lipoprotein 61 mg/dL; Magnesium 2.1 mg/dL (1.6-2.6); Potassium 3.8 mmol/L (3.5-5.1); Protein, Total 6.6 g/dL (6.4-8.2); Sodium Level 138 mmol/L (136-145); Triglycerides 94 mg/dL; Very Low Density Lipoprotein 19 mg/dL (5-40)
[2024-01-14 07:03] LABS: Bedside Glucose 142 mg/dL (74-106)
[2024-01-14] MEDS: Budesonide Respules 0.5 MG/2 ML AMPUL.NEB. INHALATION ×2 (07:13→20:34)
[2024-01-14] MEDS: Ipratropium/Albuterol Sulfate 3 ML AMPUL.NEB INHALATION ×2 (07:13→20:34)
[2024-01-14] MEDS: Loratadine 10 MG Tablet PO (07:46)
[2024-01-14] MEDS: Aspirin 81 MG TAB.CHEW PO (07:46)
[2024-01-14] MEDS: Montelukast 10 MG Tablet PO (07:46)
[2024-01-14] MEDS: Vibegron 75 MG TABLET PO (07:46)
[2024-01-14] MEDS: Polyethylene Glycol 3350 17 GM PACKET PO (07:47)
[2024-01-14] MEDS: Pantoprazole Sodium 40 MG Tablet PO (07:47)
[2024-01-14] MEDS: buPROPion (XL) 150 MG TABLET.XL PO (07:47)
[2024-01-14] MEDS: FLU VACCINE **HIGH DOSE** TV 24-25 180 MCG/0.5 ML SYRINGE IM (07:47)
[2024-01-14] MEDS: Sertraline 100 MG Tablet 150 MG PO (07:47)
[2024-01-14] MEDS: Enoxaparin 40 MG/0.4 ML Syringe SC ×2 (07:50→20:36)
[2024-01-14] MEDS: 0.9% Saline Lock 10 ML Syringe IV (09:39)
[2024-01-14] MEDS: Ceftriaxone 1 GM/50 ML BAG IV (09:39)
[2024-01-14] MEDS: LORazepam 1 MG Tablet PO (11:02)
[2024-01-14 11:22] LABS: Bedside Glucose 147 mg/dL (74-106)
--- NOTE | 2024-01-14 11:24 | CASEMGMT ---
SW completed a PHQ 9 with patient as she may have had a Stroke. Patient scored a 2 which indicates minimal depression. Patient denied any need for counseling resources. Heidi MARQUEZ
--- NOTE | 2024-01-14 11:30 | MRI_ITS ---
EXAM: MR HEAD WITHOUT INTRAVENOUS CONTRAST CLINICAL INDICATION: Dizziness, weakness and abnormal gait. Rule out CVA. TECHNIQUE: Multiplanar and multisequence MR images of the brain were obtained without intravenous contrast. COMPARISON: MRI brain with and without contrast 09/15/2020. FINDINGS: BRAIN AND EXTRA-AXIAL SPACES: No diffusion restriction to suspect acute or subacute ischemic infarct. T2 FLAIR hyperintensity foci in the posterior periventricular white matter and subcortical white matter of the cerebral hemispheres are chronic white matter ischemic changes. No mass effects and no midline shift. Normal ventricles and cisterns. No communicating or noncommunicating hydrocephalus. No intra- or extra-axial hemorrhage. Posterior fossa structures are unremarkable. SELLA: Unremarkable. Normal sella turcica, pituitary gland, infundibular stalk, optic chiasm and hypothalamus. AUDITORY SYSTEM: Unremarkable. The internal auditory canals are patent. BONES/JOINTS: Unremarkable. No discrete lytic or blastic abnormalities. SINUSES: Unremarkable as visualized. Clear. MASTOID AIR CELLS: Unremarkable as visualized. Clear. ORBITS: Unremarkable as visualized. Both globes, extraocular muscles, optic nerves and retrobulbar fat appear unremarkable. VASCULATURE: Unremarkable as visualized. Normal flow voids in the major intracranial circulation. MRI/Brain without Contrast IMPRESSION: 1. No MRI evidence of acute or subacute ischemic infarct or acute intracranial abnormality. 2. Chronic white matter ischemic changes in both cerebral hemispheres. 3. No significant interval change when compared to 09/15/2020. Electronically Signed: Haroon Bhandari MD at 13:51 EDT ,
--- NOTE | 2024-01-14 14:31 | PN_ITS ---
Subjective Subjective Patient seen and examined. She had no active complaints and felt well. Dizziness has not recurred. Review of systems is otherwise negative. She has remained hemodynamically stable. She is for MRI of the brain today. Objective Data Objective Data Vital Signs: Vital Signs Temp Pulse Resp BP Pulse Ox O2 Del Method 96.6 F L 90 18 141/75 H 97 Room Air 01/14/24 12:55 01/14/24 12:55 01/14/24 12:55 01/14/24 12:55 01/14/24 12:55 01/14/24 12:55 Oxygen Delivery Method Room Air Weight: 222 lb 14.197 oz Body Mass Index (BMI) 42.0 Intake & Output: Intake and Output for Last 24 Hours 01/12/24 01/13/24 01/14/24 23:59 23:59 23:59 Intake Total 50 / 50 400 / 400 Balance 50 / 50 400 / 400 Lab / Micro Data 01/14/24 05:48 01/14/24 05:48 Labs: Laboratory Results - last 24 hr 01/13/24 13:45: WBC 7.4, RBC 4.73, Hgb 12.0, Hct 38.3, MCV 81.0, MCH 25.4 L, M CHC 31.3 L, RDW Std Deviation 48.4 H, RDW Coeff of [place] 16.5 H, Plt Count 279, MPV 10.4, Immature Gran % (Auto) 0.100, Neut % (Auto) 74.3 H, Lymph % (Auto) 18.4 L, [place] % (Auto) 4.5, Eos % (Auto) 2.3, Baso % (Auto) 0.4, Absolute Neuts (auto) 5.5, Absolute Lymphs (auto) 1.35, Nucleated RBC % 0, Sodium 134 L, Potassium 3.6, Chloride 101, Carbon Dioxide 27.0, Anion Gap 6, BUN 16, Creatinine 0.74, Estim Creat Clear Calc 80.40, Est GFR (MDRD) Af Amer 102, Est GFR (MDRD) Non-Af 84, BUN/Creatinine Ratio 21.7 H, Glucose 165 H, Calcium 10.0, Magnesium 1.9, Troponin I High Sens 9 01/13/24 14:57: Urine Color Yellow, Urine Clarity Sl. Cloudy, Urine pH 6.5, Ur Specific [place] 1.010, Urine Protein 15 H, Urine Glucose (UA) Normal, Urine Ketones Negative, Urine Occult Blood 10 H, Urine Nitrite Positive H, Urine Bilirubin Negative, Urine Urobilinogen Normal, Ur Leukocyte Esterase 500 H, Urine RBC 0 SEEN, Urine WBC 5-10 SEEN, Ur Squamous Epith Cells 0-5 SEEN, Ur Transition Epith Cell 0-5 SEEN, Urine Bacteria 2+, Urine Mucus 0 SEEN 01/13/24 16:40: Troponin I High Sens 8 01/13/24 21:47: POC Glucose 155 H 01/14/24 05:48: WBC 6.0, RBC 4.72, Hgb 11.9 L, Hct 38.1, MCV 80.7 L, MCH 25.2 L, MCHC 31.2 L, RDW Std Deviation 48.0 H, RDW Coeff of [place] 16.4 H, Plt Count 258, MPV 9.9, Immature Gran % (Auto) 0.300, Neut % (Auto) 58.0, Lymph % (Auto) 30.1, [place] % (Auto) 7.4, Eos % (Auto) 3.5, Baso % (Auto) 0.7, Absolute Neuts (auto) 3.5, Absolute Lymphs (auto) 1.80, Nucleated RBC % 0, Sodium 138, Potassium 3.8, Chloride 104, Carbon Dioxide 30.0, Anion Gap 4 L, BUN 15, Creatinine 0.71, Estim Creat Clear Calc 76.50, Est GFR (MDRD) Af Amer 105, Est GFR (MDRD) Non-Af 87, B UN/Creatinine Ratio 21.0 H, Glucose 135 H, Calcium 9.9, Magnesium 2.1, Total Bilirubin 0.30, AST 10 L, ALT 16, Alkaline Phosphatase 98, Total Protein 6.6, Albumin 3.4, Globulin 3.2, Albumin/Globulin Ratio 1.1, Triglycerides 94, Cholesterol 125, LDL Cholesterol 45, VLDL Cholesterol 19, HDL Cholesterol 61 01/14/24 06:30: POC Glucose 142 H 01/14/24 11:03: POC Glucose 147 H Radiography Diagnostic Testing: Radiology Impression Chest X-Ray 01/13/24 14:10 IMPRESSION: There are no acute findings. Electronically Signed: Bebeto Nair MD at 15:33 EDT , Head/Neck CTA 01/13/24 14:20 IMPRESSION: 1. There is mild atherosclerotic plaque formation of the origin of the right internal carotid artery with less than 50% cross sectional diameter stenosis. ALL ABOVE CRITERIA BY NASCET. 2. There is mild atherosclerotic plaque formation of the origin of the left internal carotid artery with less than 50% cross sectional diameter stenosis. ALL ABOVE CRITERIA BY NASCET. 3. There is calcified plaque formation of the right cavernous carotid artery, with a mild stenosis (less than 50%). ALL ABOVE CRITERIA BY NASCET. 4. There is calcified plaque formation of the left cavernous carotid artery, with a mild stenosis (less than 50%). ALL ABOVE CRITERIA BY NASCET. Electronically Signed: Bebeto Nair MD at 15:46 EDT , Echocardiogram 01/13/24 17:10 Interpretation Summary The estimated ejection fraction is 65 %. Unable to assess diastolic dysfunction. Trivial mitral valve insufficiency. Small pericardial effusion. Ordering Physician: Renu Mitchell Referring Physician: ALAYNA GOMES Performed By: Lou Venegas and Student Physical Exam Const alert, oriented x3, no apparent distress and well nourished General Appearance: cooperative and well developed HEENT normocephalic, head/scalp atraumatic and moist oral mucous membranes Neck no lymphadenopathy, supple and no JVD Lymph Lymphatic: no lymphadenopathy noted Resp normal respiratory effort, normal air movement and clear to auscultation bilaterally Cardio regular rate, regular rhythm, S1 normal heart sound, S2 normal heart sound and no murmurs GI normal to inspection, nondistended, normoactive bowel sounds, soft to palpation, non-tender and non-distended Extremity normal capillary refill, no clubbing, cyanosis or edema and no calf tenderness General Extremity: no tenderness to palpation of joints or extremities Skin General Skin Exam: no breakdown Neuro CN's II-XII intact bilaterally, no focal motor deficits, no sensory deficits noted and deep tendon reflexes 2+ bilaterally Motor Exam: strength 5/5 throughout and general weakness Psych thought process normal, cooperative and affect normal Appearance: appropriate Assessment & Plan Assessment/Plan (1) Hypoxia: (2) Dizziness: PLAN: Plan #Dizziness * feels much better today. Dizziness has improved. * CT brain showed no acute intracranial pathology. * MRI of hte brain pending. CTA head and neck showed no hemodynamically significant stenosis * PT.OT on board. Fall precautions. * #UTI: on IV rocephin. Urine cultures pending. #History of COPD: not in exacerbation. Breathing treatment with bronchodilators. #Hypertension: BP meds on hold to allow for permissive hypertension in the event of a stroke. Resume BP meds #GERD: on PPI #TYpe 2 diabetes mellitus: on ISS> Accuchecks ACHS #Nicotine dependence: counseled to quit. Nicotine patch 21mg daily #Depression: on sertraline #Morbid obesity: BMI is 42. Complicates acute care, expected recovery and prognosis DT prophylaxis: lovenox Charges/Coding Visit Charges Inpatient E&M: 86732 Subs Hosp L2
--- NOTE | 2024-01-14 15:14 | NEURO.CONS ---
Assessment and Plan: Neuro Assessment/Plan 63 y/o woman with h/o DM, GERD, obesity, hypertension, COPD p/w dizziness (lightheadedness) and abnormal gait/trouble with balance. Patient was noted to have a UA concerning for UTI and given Rocephin hospitalist contacted for admission for CVA rule out. Denies chest pain, shortness of breath, cough, changes in vision. She did have some brief left-sided flank pain that has resolved, felt a little nauseous earlier as well but this is also resolved. Feels unsteady feeling even sitting down, sometimes will feel lightheaded but reports that that is not the predominant feeling. No headache, no abdominal pain. CTA- b/l ICA mild stenosis with no LVO. LDL-45. Diagnosis: Suspect Small cerebellar stroke Plan: Increase ASA to 325mg. Continue statin. Follow up MRI brain and TTE. 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 DVT prophylaxis. I personally attended this patient and spent a total time of 80 minutes evaluating this patient including clinical assessment, review of chart, medical history imaging, and determining appropriate treatment and workup. HPI Consult Data Date of Consult: 01/14/24 HPI Narrative HPI Narrative: 63 y/o woman with h/o DM, GERD, obesity, hypertension, COPD p/w dizziness (lightheadedness) and abnormal gait/trouble with balance. Patient was noted to have a UA concerning for UTI and given Rocephin hospitalist contacted for admission for CVA rule out. Denies chest pain, shortness of breath, cough, changes in vision. She did have some brief left-sided flank pain that has resolved, felt a little nauseous earlier as well but this is also resolved. Feels unsteady feeling even sitting down, sometimes will feel lightheaded but reports that that is not the predominant feeling. No headache, no abdominal pain. CTA- b/l ICA mild stenosis with no LVO. LDL-45 Today, she reports feeling better with NIHSS-0 but she does reports of trouble with walking. [facility] Medical History (Reviewed 01/08/24 @ 13:19 by Juju Monroe AGRICULTURAL SCIENCES PROFESSOR, AGRICULTURAL SCIENCES PROFESSOR-C) Tinnitus Loss of hearing MRSA infection Alcohol use Diabetes Ambulates with cane Low iron Anemia High cholesterol Dietary restriction History of ulceration GERD (gastroesophageal reflux disease) CPAP (continuous positive airway pressure) dependence Right hip pain Wears dentures Wears glasses Post-menopausal Anxiety Arthritis Excessive bleeding Back pain Syncope Gastric reflux Sleep apnea Smoker Asthma COPD (chronic obstructive pulmonary disease) Shortness of breath on exertion Chronic cough Leg cramps History of edema History of echocardiogram History of stress test Cardiology follow-up encounter Left rotator cuff tear Primary osteoarthritis, left shoulder Internal impingement of left shoulder Left shoulder pain Atherosclerotic heart disease of crow coronary artery without angina pectoris History of left heart catheterization (LHC) (~09/27/21) Abnormal stress test Bronchitis Palpitations Type 2 diabetes mellitus Diabetes COVID-19 MRSA (methicillin resistant staph aureus) culture positive Hypertension Vertigo Fracture, tibial plateau Depression Home Medications ?Medication ?Instructions ?Recorded ?Last Taken ?Type metformin 1,000 mg tablet 1,000 mg PO BID DM 04/14/20 01/12/24 History montelukast 10 mg tablet 10 mg PO DAILY 04/14/20 01/12/24 History omeprazole 20 mg capsule,delayed 20 mg PO QHS GERD 04/14/20 01/12/24 History release sertraline 100 mg tablet 150 mg PO DAILY 04/14/20 01/12/24 History fluticasone propionate 50 2 spray intranasal DAILY Wheezing 08/03/21 01/12/24 History mcg/actuation nasal spray,suspension mometasone-formoterol HFA 200 2 inh inhalation PRN Wheezing 08/03/21 01/02/24 History mcg-5 mcg/actuation aerosol inhaler [employer]Gov 1 tablet PO DAILY 08/11/21 01/12/24 History naproxen sodium 220 mg tablet 220 mg PO BID PRN Pain 08/11/21 07/24/23 History aspirin 81 mg tablet,delayed 81 mg PO DAILY 09/13/21 01/12/24 History release (Adult Low Dose Aspirin) compress.stocking,knee,reg,lrg #2 ea 09/01/22 Unknown Rx (Relief Knee Close Toe Stocking) compression socks, large #2 ea 09/01/22 Unknown Rx bupropion HCl 150 mg 24 hr tablet, 150 mg PO DAILY 09/20/22 01/12/24 History extended release polyethylene glycol 3350 17 gram 17 g PO DAILY 09/20/22 01/13/24 History oral powder packet (Miralax) trazodone 50 mg tablet 50 mg PO QHS 09/20/22 01/12/24 History hydrochlorothiazide 25 mg tablet 25 mg PO DAILY 01/04/23 01/12/24 History budesonide 160 mcg-glycopyr 9 2 inh inhalation BID 07/04/23 01/12/24 History mcg-formot 4.8 mcg/actuation HFA inhaler (Breztri Aerosphere) cartilage 40 mg-collagen II-boron 1 tab PO QHS 07/04/23 01/12/24 History 5 mg-hyaluronate sod 3.3 mg tablet (Move Free Ultra Triple Action (boron)) cholecalciferol (vitamin D3) 1,250 1,250 mcg PO FR 07/04/23 01/11/24 History mcg (50,000 unit) capsule mecobalamin (vitamin B12) 5,000 5,000 mcg PO QHS 07/04/23 01/12/24 History mcg chewable tablet [id number] 8 mg-folic 400 1 tab PO DAILY 07/04/23 01/12/24 History mcg-K 50 mcg-lutein 300 mcg tablet (Centrum Silver Women) atorvastatin 20 mg tablet 20 mg PO QHS #90 tabs 10/31/23 01/12/24 Rx ferrous sulfate 325 mg (65 mg 325 mg PO ONCE SUPPLEMENT 01/08/24 01/12/24 History iron) tablet dulaglutide 3 mg/0.5 mL 3 mg subcut QWEEK 01/13/24 01/09/24 History subcutaneous pen injector (Trulicity) loratadine 10 mg tablet 10 mg PO DAILY 01/13/24 01/12/24 History losartan 100 mg tablet 100 mg PO DAILY 01/13/24 01/12/24 History mirabegron 50 mg tablet,extended 50 mg PO DAILY 01/13/24 01/12/24 History release 24 hr (Myrbetriq) Allergy/AdvReac Type Severity Reaction Status Date / Time isoniazid Allergy Other Verified 01/08/24 13:18 Family History Brother Atrial fibrillation Grandfather Myocardial infarction Grandmother Myocardial infarction Mother Dementia CAD (coronary artery disease) Hypertension Father COPD (chronic obstructive pulmonary disease) Hypertension Cancer Prostate, Colon, Surgical History History of esophagogastroduodenoscopy (EGD) History of colonoscopy History of shoulder surgery History of cardiac catheterization Hx of eye surgery Hx laparoscopic cholecystectomy Hx of section Hx of right knee surgery H/O: hysterectomy Social History household members: none current occupational exposures/hazards: No history of recent travel: No Smoking Status: Current every day smoker tobacco type: cigarettes alcohol intake: current alcohol intake frequency: holidays/special occasions only substance use type: does not use caffeine: Yes Type: coffee Number of servings: 5 Vital Signs Vital Signs Vital Signs: 01/13/24 16:00 01/13/24 17:15 01/13/24 17:30 Temperature 98.1 F 97.6 F L Temperature Source Temporal Pulse Rate 78 82 81 Pulse Strength Respiratory Rate 16 19 H 16 Respiratory Effort Respiratory Depth Respiratory Pattern Blood Pressure 143/45 H 91/77 134/78 H Blood Pressure Mean 77 81 96 Blood Pressure Source Monitor Blood Pressure Position Sitting Blood Pressure Location Left Arm Pulse Ox 100 100 94 Oxygen Delivery Method Room Air Room Air 01/13/24 17:50 01/13/24 18:00 01/13/24 19:47 Temperature Temperature Source Pulse Rate 84 Pulse Strength Respiratory Rate 18 Respiratory Effort Normal Non-Labored Respiratory Depth Normal Respiratory Pattern Normal Normal Blood Pressure Blood Pressure Mean Blood Pressure Source Blood Pressure Position Blood Pressure Location Pulse Ox 96 Oxygen Delivery Method Room Air Room Air 01/13/24 21:30 01/13/24 21:30 01/13/24 21:30 Temperature 97.5 F L 97.5 F L Temperature Source Temporal Oral Pulse Rate 74 74 Pulse Strength Respiratory Rate 18 18 Respiratory Effort Normal Non-Labored Respiratory Depth Normal Respiratory Pattern Normal Blood Pressure 128/67 H 128/67 H Blood Pressure Mean 87 87 Blood Pressure Source Monitor Monitor Blood Pressure Position Sitting Semi-Fowlers Blood Pressure Location Left Arm Left Arm Pulse Ox 98 98 Oxygen Delivery Method Room Air Room Air Room Air 01/13/24 21:30 01/14/24 01:30 01/14/24 01:30 Temperature 97.5 F L 97.8 F 97.8 F Temperature Source Oral Oral Oral Pulse Rate 74 89 89 Pulse Strength Respiratory Rate 18 18 18 Respiratory Effort Respiratory Depth Respiratory Pattern Blood Pressure 128/67 H 150/72 H 150/72 H Blood Pressure Mean 87 98 98 Blood Pressure Source Monitor Monitor Blood Pressure Position Semi-Fowlers Semi-Fowlers Blood Pressure Location Left Arm Left Arm Pulse Ox 98 95 95 Oxygen Delivery Method Room Air Room Air Room Air 01/14/24 05:30 01/14/24 05:30 01/14/24 05:30 Temperature 97.6 F L 97.6 F L 97.6 F L Temperature Source Temporal Oral Oral Pulse Rate 85 85 85 Pulse Strength Respiratory Rate 16 16 16 Respiratory Effort Respiratory Depth Respiratory Pattern Blood Pressure 125/65 H 125/65 H 125/65 H Blood Pressure Mean 85 85 85 Blood Pressure Source Monitor Monitor Blood Pressure Position Semi-Fowlers Semi-Fowlers Blood Pressure Location Left Arm Left Arm Pulse Ox 96 96 96 Oxygen Delivery Method Room Air Room Air Room Air 01/14/24 05:30 01/14/24 07:13 01/14/24 07:13 Temperature Temperature Source Pulse Rate 88 Pulse Strength Respiratory Rate 20 H Respiratory Effort Normal Non-Labored Respiratory Depth Normal Respiratory Pattern Normal Normal Blood Pressure Blood Pressure Mean Blood Pressure Source Blood Pressure Position Blood Pressure Location Pulse Ox 96 Oxygen Delivery Method Room Air Room Air 01/14/24 07:59 01/14/24 08:00 01/14/24 09:30 Temperature 98.5 F Temperature Source Oral Pulse Rate 85 Pulse Strength Normal (2+) Respiratory Rate 16 Respiratory Effort Normal Non-Labored Respiratory Depth Normal Respiratory Pattern Normal Blood Pressure 122/84 H Blood Pressure Mean 96 Blood Pressure Source Monitor Blood Pressure Position Sitting Blood Pressure Location Left Arm Pulse Ox 98 Oxygen Delivery Method Room Air Room Air 01/14/24 12:55 Temperature 96.6 F L Temperature Source Temporal Pulse Rate 90 Pulse Strength Respiratory Rate 18 Respiratory Effort Respiratory Depth Respiratory Pattern Blood Pressure 141/75 H Blood Pressure Mean 97 Blood Pressure Source Monitor Blood Pressure Position Sitting Blood Pressure Location Left Arm Pulse Ox 97 Oxygen Delivery Method Room Air Weight Weight: 101.1 kg Body Mass Index (BMI) 42.0 EEG Results Procedure Details EEG Procedure Details: DAPHNEY MEADE is a 63 year old F with a past medical history of , who presents for evaluation of Electroencephalogram on DATE at TIME NIHSS NIHSS Nursing Documentation NIHSS Nursing Documentation: NIHSS: Ischemic Stroke/TIA Start: 01/13/24 17:26 Text: For PCU Patients: NIH and Neuro Check every 4 Status: Active hours, PRN and with change in RN caregiver. Freq: [id number] Protocol: Activity Type Activity Date Activity User E-sign Co-sign Detail Recorded Client Recorded Date Recorded By Document 01/14/24 12:56 [id number] 01/14/24 12:56 01/14/24 12:56 NIH Stroke Scale [NIHSS] A score of 0 is normal or asymptomatic . Total possible score is 42. Inpatient: RN or Physician to activate a stroke alert for onset of new stroke symptoms or with NIHSS increase >/= 3 points. Following change in neurological status, NIHSS will be performed per physician order or more frequently PRN. -1a. Level of Consciousness Alert; keenly responsive -1b. LOC Questions Answers BOTH questions correctly. -1c. LOC Commands Performs both tasks correctly . -2. Best Gaze Normal -3. Visual No visual loss -4. Facial Palsy Normal symmetrical movements -5a. Left Arm No drift; arm holds 90 (or 45 ) degrees for full 10 seconds -5b. Right Arm No drift; arm holds 90 (or 45 ) degrees for full 10 seconds -6a. Left Leg No drift; leg holds 30-degree position for full 5 seconds -6b. Right Leg No drift; leg holds 30-degree position for full 5 seconds -7. Limb Ataxia Absent -8. Sensory Normal; no sensory loss -9. Best Language No aphasia; normal -10. Dysarthria Normal -11. Extinction and Inattention No abnormality -Total 0 Query Text:A score of 0 is normal or asymptomatic. Total possible score is 42 . ED: Notify Physician for NIHSS increase by > / = 3 points. Inpatient: RN or Physician to activate a stroke alert for NIHSS increase of > / = 3 points. Coma Scale [Assess] -Eye Opening Spontaneous -Motor Obeys Commands -Verbal Oriented [Total] -Coma Scale Total 15 NIHSS 1a. Level of Consciousness: Alert; keenly responsive 1b. LOC Questions: Answers BOTH questions correctly. 1c. LOC Commands: Performs both tasks correctly. 2. Best Gaze: Normal 3. Visual: No visual loss 4. Facial Palsy: Normal symmetrical movements 5a. Left Arm: No drift; arm holds 90 (or 45) degrees for full 10 seconds 5b. Right Arm: No drift; arm holds 90 (or 45) degrees for full 10 seconds 6a. Left Leg: No drift; leg holds 30-degree position for full 5 seconds 6b. Right Leg: No drift; leg holds 30-degree position for full 5 seconds 7. Limb Ataxia: Absent 8. Sensory: Normal; no sensory loss 9. Best Language: No aphasia; normal 10. Dysarthria: Normal 11. Extinction and Inattention: No abnormality Total: 0 Physical Exam Narrative General: The patient appears nutritionally appropriate, well-groomed, and appears comfortable in no acute distress. Mental Status:? The patient?s mental status was normal including orientation.? Language was intact.? Cranial nerves:? Visual jose full, and extra-ocular motion was intact. Symmetrical face. Motor: Normal strength in all extremities Sensation: Normal in all extremities.? Coordination:? Bilateral finger to nose was normal.? There was no dysmetria. Gait:? deferred Lab / Micro Data 01/14/24 05:48 01/14/24 05:48 Labs: Laboratory Results - last 24 hr 01/13/24 14:57: Urine Color Yellow, Urine Clarity Sl. Cloudy, Urine pH 6.5, Ur Specific [place] 1.010, Urine Protein 15 H, Urine Glucose (UA) Normal, Urine Ketones Negative, Urine Occult Blood 10 H, Urine Nitrite Positive H, Urine Bilirubin Negative, Urine Urobilinogen Normal, Ur Leukocyte Esterase 500 H, Urine RBC 0 SEEN, Urine WBC 5-10 SEEN, Ur Squamous Epith Cells 0-5 SEEN, Ur Transition Epith Cell 0-5 SEEN, Urine Bacteria 2+, Urine Mucus 0 SEEN 01/13/24 16:40: Troponin I High Sens 8 01/13/24 21:47: POC Glucose 155 H 01/14/24 05:48: WBC 6.0, RBC 4.72, Hgb 11.9 L, Hct 38.1, MCV 80.7 L, MCH 25.2 L, MCHC 31.2 L, RDW Std Deviation 48.0 H, RDW Coeff of Christina 16.4 H, Plt Count 258, MPV 9.9, Immature Gran % (Auto) 0.300, Neut % (Auto) 58.0, Lymph % (Auto) 30.1, [place] % (Auto) 7.4, Eos % (Auto) 3.5, Baso % (Auto) 0.7, Absolute Neuts (auto) 3.5, Absolute Lymphs (auto) 1.80, Nucleated RBC % 0, Sodium 138, Potassium 3.8, Chloride 104, Carbon Dioxide 30.0, Anion Gap 4 L, BUN 15, Creatinine 0.71, Estim Creat Clear Calc 76.50, Est GFR (MDRD) Af Amer 105, Est GFR (MDRD) Non-Af 87, BUN/Creatinine Ratio 21.0 H, Glucose 135 H, Calcium 9.9, Magnesium 2.1, Total Bilirubin 0.30, AST 10 L, ALT 16, Alkaline Phosphatase 98, Total Protein 6.6, Albumin 3.4, Globulin 3.2, Albumin/Globulin Ratio 1.1, Triglycerides 94, Cholesterol 125, LDL Cholesterol 45, VLDL Cholesterol 19, HDL Cholesterol 61 01/14/24 06:30: POC Glucose 142 H 01/14/24 11:03: POC Glucose 147 H Imaging Radiology Impression Chest X-Ray 01/13/24 14:10 IMPRESSION: There are no acute findings. Electronically Signed: Bebeto Nair MD at 15:33 EDT , Head/Neck CTA 01/13/24 14:20 IMPRESSION: 1. There is mild atherosclerotic plaque formation of the origin of the right internal carotid artery with less than 50% cross sectional diameter stenosis. ALL ABOVE CRITERIA BY NASCET. 2. There is mild atherosclerotic plaque formation of the origin of the left internal carotid artery with less than 50% cross sectional diameter stenosis. ALL ABOVE CRITERIA BY NASCET. 3. There is calcified plaque formation of the right cavernous carotid artery, with a mild stenosis (less than 50%). ALL ABOVE CRITERIA BY NASCET. 4. There is calcified plaque formation of the left cavernous carotid artery, with a mild stenosis (less than 50%). ALL ABOVE CRITERIA BY NASCET. Electronically Signed: Bebeto Nair MD at 15:46 EDT , Echocardiogram 01/13/24 17:10 Interpretation Summary The estimated ejection fraction is 65 %. Unable to assess diastolic dysfunction. Trivial mitral valve insufficiency. Small pericardial effusion. Ordering Physician: Renu Mitchell Referring Physician: ALAYNA GOMES Performed By: Desiree Venegash and Student Active Medications Active Medications Active Medications: Current Medications Generic Name Dose Route Start Last Admin Trade Name Freq PRN Reason Stop Dose Admin Acetaminophen 650 mg 01/13/24 17:26 01/13/24 19:27 Acetaminophen 325 Mg Tablet PO 650 mg Q6H PRN PRN Administration Pain 1-10 Or Fever >100.7 Albuterol/Ipratropium 3 ml 01/13/24 17:45 01/14/24 07:13 Ipratropium/Albuterol Sulfate 3 Ml Ampul.Neb INHALATION 3 ml Q6HWA.RT LAURA Administration Aspirin 81 mg 01/14/24 08:00 01/14/24 07:46 Aspirin 81 Mg Tab.Chew PO 81 mg BREAKFAST LAURA Administration Atorvastatin Calcium 80 mg 01/13/24 22:00 01/13/24 21:55 Atorvastatin Calcium 80 Mg Tablet PO 80 mg QHS LAURA Administration Budesonide 0.5 mg 01/13/24 17:45 01/14/24 07:13 Budesonide Respules 0.5 Mg/2 Ml Ampul.Neb. INHALATION 0.5 mg Q12H.RT LAURA Administration Bupropion HCl 150 mg 01/14/24 10:00 01/14/24 07:47 Bupropion (Xl) 150 Mg Tablet.Xl PO 150 mg DAILY LAURA Administration Enoxaparin Sodium 40 mg 01/13/24 22:00 01/14/24 07:50 Enoxaparin 40 Mg/0.4 Ml Syringe SC 40 mg BID LAURA Administration Glucagon 1 mg 01/13/24 17:26 Glucagon 1 Mg/Ml Syringe IM X1 PRN HYPOGLYCEMIA Protocol Hydralazine HCl 5 mg 01/13/24 17:26 Hydralazine 20 Mg/Ml Vial IV 01/14/24 17:26 Q30M PRN maintain BP parameters with HR <60 Dextrose 250 mls @ 0 mls/hr 01/13/24 17:26 Dextrose 10%-Water IV .Q0M PRN HYPOGLYCEMIA Protocol As Directed Ceftriaxone Sodium 1 gm in 50 mls @ 100 mls/hr 01/14/24 10:00 01/14/24 10:09 Rocephin IV Infused Q24 LAURA Infusion Sodium Chloride 100 mls @ 15 mls/hr 01/13/24 17:48 IV .Q6H40M PRN Saline Flush Sodium Chloride 100 mls @ 15 mls/hr 01/13/24 17:48 IV .Q6H40M PRN Additional IVPB Infusion Insulin Human Lispro 0 unit 01/13/24 22:00 01/14/24 11:04 Insulin Lispro 100 Unit/Ml Insuln.Pen SC Not Given ACHS LAURA Protocol Labetalol HCl 10 - 20 mg 01/13/24 17:26 Labetalol (Prefilled) 20 Mg/4 Ml Vial IV 01/14/24 17:26 Q10M PRN PRN maintain BP parameters with HR >/=60 Loratadine 10 mg 01/14/24 10:00 01/14/24 07:46 Loratadine 10 Mg Tablet PO 10 mg DAILY LAURA Administration Lorazepam 1 mg 01/13/24 17:26 01/14/24 11:02 Lorazepam 1 Mg Tablet PO 1 mg X1 PRN Administration Anxiety with MRI Melatonin 3 mg 01/13/24 17:26 Melatonin 3 Mg Tablet PO QHS PRN PRN INSOMNIA Montelukast Sodium 10 mg 01/14/24 10:00 01/14/24 07:46 Montelukast 10 Mg Tablet PO 10 mg DAILY LAURA Administration Ondansetron HCl 4 mg 01/13/24 17:26 Ondansetron 4 Mg/2 Ml Vial IV Q8H PRN PRN NAUSEA/VOMITING Pantoprazole Sodium 40 mg 01/14/24 10:00 01/14/24 07:47 Pantoprazole Sodium 40 Mg Tablet PO 40 mg DAILY LAURA Administration Polyethylene Glycol 17 gm 01/14/24 10:00 01/14/24 07:47 Polyethylene Glycol 3350 17 Gm Packet PO 17 gm DAILY LAURA Administration Senna/Docusate Sodium 2 tablet 01/13/24 17:26 Senna/Docusate Sodium 1 Tablet PO BID PRN PRN Constipation Sertraline HCl 150 mg 01/14/24 10:00 01/14/24 07:47 Sertraline 100 Mg Tablet PO 150 mg DAILY LAURA Administration Sodium Chloride 10 - 40 ml 01/13/24 17:48 01/14/24 09:39 0.9% Saline Lock 10 Ml Syringe IV 10 ml UD PRN Administration SALINE FLUSH Trazodone HCl 50 mg 01/13/24 22:00 01/13/24 21:55 Trazodone 50 Mg Tablet PO 50 mg QHS LAURA Administration
--- NOTE | 2024-01-14 15:45 | CHAPLAIN ---
Type of Pastoral Visit _x__ Initial Visit ___ Follow-up Visit ___ On-call Visit ___ General Patient Visit ___ Spiritual Assessment ___ Family Conference ___ Bereavement ___ Rapid Response ___ Code Blue ___ Other (describe below) Pastoral Care Referral From _x__ Patient ___ Family ___ Nurse ___ Physician ___ Rock Singer ___ Interactive Project Manager ___ Other (describe below) Sacrament/Intervention _x__ Active listening ___ Anointing ___ Islam ___ Bereavement ___ Communion ___ [place] exploration ___ _x__ Life review _x__ Prayer ___ Reconciliation ___ Sacrament of Sick _x__ Supportive presence ___ Wedding ___ Other (describe below) Pastoral Comments patient speaks of her health and not wanting to be in the hospital; 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
--- NOTE | 2024-01-14 16:19 | CASEMGMT ---
Met with patient to complete FIGUEROA form. FIGUEROA form explained to patient who voiced understanding and signed form. Original form placed in pt?s chart and copy provided to patient. Genesis Morales, Discharge Planning Asst
[2024-01-14 16:32] LABS: Bedside Glucose 140 mg/dL (74-106)
[2024-01-14] MEDS: Insulin Lispro 100 UNIT/ML INSULN.PEN SC (20:36)
[2024-01-14] MEDS: traZODone 50 MG Tablet PO (20:36)
[2024-01-14] MEDS: Atorvastatin Calcium 80 MG Tablet PO (20:36)
[2024-01-14 21:10] LABS: Bedside Glucose 159 mg/dL (74-106)
[2024-01-15 02:45] VITALS: BP 147/77; PULSE 82; RESP 16; TEMP 36; O2SAT 95
[2024-01-15 06:29] LABS: Absolute Lymphocyte Count 1.47 X10^3/uL (0.83-4.51); Absolute Neutrophil Count 4.8 X10^3/uL (2.0-7.7); Basophil# 0.02 X10^3/uL; Basophil% 0.3 % (0-1); Eosinophil# 0.17 X10^3/uL; Eosinophils% 2.4 % (0-5); Hematocrit 35.1 % (37-47); Hemoglobin 11.1 g/dL (12.0-15.0); Lymphocyte # 1.47 X10^3/ul (0.83-4.51); Lymphocyte % 21.1 % (19-41); Mean Corp Hgb Conc 31.6 g/dL (32-36); Mean Corpuscular Hgb 25.2 pg (27.0-32.0); Mean Corpuscular Volume 79.6 fL (81-99); Mean Platelet Vol. 10.2 fl (6.2-12.0); Monocyte# 0.52 X10^3/uL; Monocyte% 7.4 % (0-10); NRBC Flagged by Analyzer 0 % (0-5); Neutrophil # 4.79 X10^3/uL (2.7-7.7); Neutrophil % 68.7 % (47-70); Platelet Count 225 K/mm3 (150-450); RBC Distribution Width CV 16.3 % (11.6-14.6); RBC Distribution Width SD 47.6 fl (35.1-43.9); Red Blood Count 4.41 M/mm3 (4.2-5.4)
[2024-01-15 06:37] LABS: Anion Gap 6 (5-15); BUN 12 mg/dL (7-18); BUN/Creat Ratio 17.9 RATIO (10-20); Calcium,Total 9.7 mg/dL (8.5-10.1); Chloride 104 mmol/L (98-107); Creatinine, Serum 0.67 mg/dL (0.55-1.02); EST Glomerular Filtration Rate 94 mL/min (>60); Est Glom Filt Rate - Afr Amer 113 mL/min (>60); Glucose 127 mg/dL (74-106); Potassium 3.7 mmol/L (3.5-5.1); Sodium Level 137 mmol/L (136-145)
[2024-01-15 06:56] LABS: Bedside Glucose 121 mg/dL (74-106)
[2024-01-15 07:35] VITALS: PULSE 72; RESP 18; O2SAT 97
[2024-01-15] MEDS: Ipratropium/Albuterol Sulfate 3 ML AMPUL.NEB INHALATION ×2 (07:36→13:01)
[2024-01-15] MEDS: Budesonide Respules 0.5 MG/2 ML AMPUL.NEB. INHALATION (07:36)
[2024-01-15] MEDS: Polyethylene Glycol 3350 17 GM PACKET PO (08:32)
[2024-01-15] MEDS: Aspirin 325 MG Tablet PO (08:37)
[2024-01-15] MEDS: Vibegron 75 MG TABLET PO (08:39)
[2024-01-15] MEDS: Loratadine 10 MG Tablet PO (08:39)
[2024-01-15] MEDS: Pantoprazole Sodium 40 MG Tablet PO (08:39)
[2024-01-15] MEDS: Sertraline 100 MG Tablet 150 MG PO (08:39)
[2024-01-15] MEDS: Montelukast 10 MG Tablet PO (08:39)
[2024-01-15] MEDS: Enoxaparin 40 MG/0.4 ML Syringe SC (08:39)
[2024-01-15] MEDS: buPROPion (XL) 150 MG TABLET.XL PO (08:39)
[2024-01-15] MEDS: 0.9% Saline Lock 10 ML Syringe IV (08:44)
[2024-01-15 08:45] VITALS: BP 129/67; PULSE 79; RESP 16; TEMP 36.7; O2SAT 94
[2024-01-15] MEDS: Ceftriaxone 1 GM/50 ML BAG IV (09:19)
[2024-01-15 11:51] LABS: Bedside Glucose 171 mg/dL (74-106)
--- NOTE | 2024-01-15 12:47 | DS.PCM_ITS ---
Providers Date of Admission: 01/13/24 Date of Discharge: 01/15/24 Primary Care Physician: Alayna [facility] Consultations 01/13/24 17:26 Consult: Tele-Neurology Routine Consulting Provider: [facility] Reason for Consult: Acute Ischemic Stroke/TIA EMERGENT Consult: No MD Notified: Yes Date Notified: 01/13/24 Time Notified: 18:38 Method of Notification: Answering Service Nursing Unit Staff Notify [facility] of Tele-Neurology Consult: Yes Reason For Visit: UTI, CVA RULE OUT Diagnosis Discharge Diagnosis (1) Hypoxia: Status: Acute Code(s): R09.02 - Hypoxemia (2) Dizziness: Status: Acute Code(s): R42 - Dizziness and giddiness Plan #Dizziness * feels much better today. Dizziness has improved. * CT brain showed no acute intracranial pathology. * MRI of hte brain pending. CTA head and neck showed no hemodynamically significant stenosis * PT.OT on board. Fall precautions. * #UTI: on IV rocephin. Urine cultures pending. #History of COPD: not in exacerbation. Breathing treatment with bronchodilators. #Hypertension: BP meds on hold to allow for permissive hypertension in the event of a stroke. Resume BP meds #GERD: on PPI #TYpe 2 diabetes mellitus: on ISS> Accuchecks ACHS #Nicotine dependence: counseled to quit. Nicotine patch 21mg daily #Depression: on sertraline #Morbid obesity: BMI is 42. Complicates acute care, expected recovery and prognosis DT prophylaxis: lovenox Medications at Discharge Home Medications metformin 1,000 mg tablet 1,000 mg PO BID DM 04/14/20 montelukast 10 mg tablet 10 mg PO DAILY 04/14/20 omeprazole 20 mg capsule,delayed release 20 mg PO QHS GERD 04/14/20 sertraline 100 mg tablet 150 mg PO DAILY 04/14/20 fluticasone propionate 50 mcg/actuation nasal spray,suspension 2 spray intranasal DAILY Wheezing 08/03/21 mometasone-formoterol HFA 200 mcg-5 mcg/actuation aerosol inhaler 2 inh inhalation PRN Wheezing 08/03/21 Brain health 1 tablet PO DAILY 08/11/21 compress.stocking,knee,reg,lrg (Relief Knee Close Toe Stocking) #2 ea 06/02/23 compression socks, large #2 ea 09/01/22 bupropion HCl 150 mg 24 hr tablet, extended release 150 mg PO DAILY 09/20/22 polyethylene glycol 3350 17 gram oral powder packet (Miralax) 17 g PO DAILY 09/20/22 trazodone 50 mg tablet 50 mg PO QHS 09/20/22 hydrochlorothiazide 25 mg tablet 25 mg PO DAILY 01/04/23 budesonide 160 mcg-glycopyr 9 mcg-formot 4.8 mcg/actuation HFA inhaler (Breztri Aerosphere) 2 inh inhalation BID 07/04/23 cartilage 40 mg-collagen II-boron 5 mg-hyaluronate sod 3.3 mg tablet (Move Free Ultra Triple Action (boron)) 1 tab PO QHS 07/04/23 cholecalciferol (vitamin D3) 1,250 mcg (50,000 unit) capsule 1,250 mcg PO FR 07/04/23 mecobalamin (vitamin B12) 5,000 mcg chewable tablet 5,000 mcg PO QHS 07/04/23 fuqzrtqz-fnnv-annn 8 mg-folic 400 mcg-K 50 mcg-lutein 300 mcg tablet (Centrum Silver Women) 1 tab PO DAILY 07/04/23 atorvastatin 20 mg tablet 20 mg PO QHS #90 tabs 10/31/23 ferrous sulfate 325 mg (65 mg iron) tablet 325 mg PO ONCE SUPPLEMENT 01/08/24 dulaglutide 3 mg/0.5 mL subcutaneous pen injector (Trulicity) 3 mg subcut QWEEK 01/13/24 loratadine 10 mg tablet 10 mg PO DAILY 01/13/24 losartan 100 mg tablet 100 mg PO DAILY 01/13/24 mirabegron 50 mg tablet,extended release 24 hr (Myrbetriq) 50 mg PO DAILY 01/13/24 aspirin 325 mg tablet 325 mg PO BREAKFAST #30 tabs 01/15/24 cefdinir 300 mg capsule 300 mg PO BID #10 caps 01/15/24 Hospital Course Operations None Procedures None Summary of Care Provided Minutes Spent on Discharge: 45 Hospital Course: Patient is a 63-year-old female with past medical history as outlined was admitted through the ED on 01/13/2024 with a complaint of dizziness and abnormal gait. There was concern for posterior stroke. CT of the brain showed no evidence of stroke and CT of the head and neck showed no hemodynamically significant stenosis. Urinalysis showed evidence of UTI so she was started on IV ceftriaxone and was admitted and managed for debility due to dizziness and vertigo as well as UTI. Her symptoms resolved and she felt much better. MRI of the brain ruled out a stroke as well. Urine cultures grew gram-negative rods. Speciation was pending. She remained stable and was discharged home on 01/15/2024. She is follow-up with her primary care doctor within 1 to 2 weeks. Of note she had 2D echo which showed EF of 65% with no regional wall motion abnormalities noted and bubble contrast study negative for jkhoo-np-khyc interatrial shunt. Neurology was consulted and did not think that his symptoms were due to a stroke. Neurology recommended increasing her aspirin to 325 mg daily and continue her statin. Patient seen and examined prior to discharge. She had no complaints and had an uneventful night. Review of systems otherwise negative. Labs and vitals reviewed. Home medication reviewed and reconciled. Physical Exam Const alert, oriented x3, no apparent distress and well nourished General Appearance: cooperative, comfortable, well kempt and well developed Orientation / Consciousness: awake Exam Limitations: no limitations HEENT normocephalic, head/scalp atraumatic, hearing grossly normal bilaterally and moist oral mucous membranes Mouth: oral and palatal mucosa normal Eyes PERRL, EOMs intact bilaterally and conjunctivae normal Neck no lymphadenopathy, supple and no JVD Lymph Lymphatic: no lymphadenopathy noted Resp normal respiratory effort, normal air movement and clear to auscultation bilaterally Cardio regular rate, regular rhythm, S1 normal heart sound, S2 normal heart sound and no murmurs GI normal to inspection, nondistended, normoactive bowel sounds, soft to palpation, non-tender and non-distended Extremity normal capillary refill, no clubbing, cyanosis or edema and no calf tenderness General Extremity: no tenderness to palpation of joints or extremities Skin no rashes or lesions noted General Skin Exam: no breakdown Neuro oriented x3, CN's II-XII intact bilaterally, moves all extremities, no focal motor deficits, no sensory deficits noted and deep tendon reflexes 2+ bilaterally Sensorium / Orientation: awake Motor Exam: strength 5/5 throughout and general weakness Psych thought process normal, cooperative and affect normal Appearance: appropriate Weight / BMI Weight Weight: 222 lb 14.197 oz Body Mass Index (BMI) 42.0 ABG / Lab / Microbiology Data 01/15/24 05:30 01/15/24 05:30 Laboratory: Laboratory Results - last 24 hr 01/14/24 16:14: POC Glucose 140 H 01/14/24 20:33: POC Glucose 159 H 01/15/24 05:30: WBC 7.0, RBC 4.41, Hgb 11.1 L, Hct 35.1 L, MCV 79.6 L, MCH 25.2 L, MCHC 31.6 L, RDW Std Deviation 47.6 H, RDW Coeff of Christina 16.3 H, Plt Count 225, MPV 10.2, Immature Gran % (Auto) 0.100, Neut % (Auto) 68.7, Lymph % (Auto) 21.1, [place] % (Auto) 7.4, Eos % (Auto) 2.4, Baso % (Auto) 0.3, Absolute Neuts (auto) 4.8, Absolute Lymphs (auto) 1.47, Nucleated RBC % 0, Sodium 137, Potassium 3.7, Chloride 104, Carbon Dioxide 27.0, Anion Gap 6, BUN 12, Creatinine 0.67, Estim Creat Clear Calc 76.50, Est GFR (MDRD) Af Amer 113, Est GFR (MDRD) Non-Af 94, BUN/Creatinine Ratio 17.9, Glucose 127 H, Calcium 9.7 01/15/24 06:13: POC Glucose 121 H 01/15/24 11:32: POC Glucose 171 H Microbiology: Microbiology 01/13/24 14:57 Urine, Clean Catch Urine Culture - Preliminary GNR 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 Unable to assess diastolic dysfunction. Trivial mitral valve insufficiency. Small pericardial effusion. Ordering Physician: Renu Mitchell Referring Physician: ALAYNA GOMES Performed By: Lou Venegas and Student Brain MRI 01/14/24 11:30 IMPRESSION: 1. No MRI evidence of acute or subacute ischemic infarct or acute intracranial abnormality. 2. Chronic white matter ischemic changes in both cerebral hemispheres. 3. No significant interval change when compared to 09/15/2020. Electronically Signed: Haroon Bhandari MD at 13:51 EDT Reading Location ID and State: [facility] / [place] , Service support , D/C Instructions Discharge Diet: Low fat / Low cholesterol Discharge Activity: Return to Normal Activity Call your doctor if you observe: Fever of 101 or Higher, Shortness of breath, Dizziness, Fainting spells, Swelling in the ankles and Chest pain Meaningful Use Info Meaningful Use Meaningful Use Diagnoses (Choose all that apply): None applicable Ischemic Stroke Statin Dosing Therapy Reference: STATIN DOSE THERAPY REFERENCE: * Patients > 75 years receive moderate or high dose statin therapy. * Patients 75 years or YOUNGER should receive HIGH intensity statin dose unless contraindicated. You will be required to document reason for non-treatment if statin daily dose does not meet guidelines. HIGH DOSE STATIN THERAPY DAILY Atorvastatin > than or = to 40 mg Rosuvastatin > than or = to 20 mg Amlodipine + Atorvastatin > than or = to 2.5/40 mg Ezetimibe + Simvastatin 10/80 mg Simvastatin 80mg Discharge Plan Admission Admit Date/Time: 01/13/24 16:55 Primary Reason for Your Visit: UTI, dizziness. Attending Provider: Khalida Jimenez [facility] Consulting Providers: Nahid Woods; Wojciech Mendez; Estela Mauro; Bridgette Forde; Charlee Adames; Eric Zuniga; Nuris Jones; Cristian Whaley; Wan Pierce; Clemente Bell; Sharon Feldman; Jeffrey Lujan; Stefany Lacy; Wilver Owusu; Enrico Evans; Raghu Meneses; Charlie Bang; Gabriel Paul; Christina Sam; Cedric Martínez; Renu Mitchell; Khalida Jimenez; Madi Diop Instructions Patient Instructions: ED Dizziness, Uncertain Cause, ED Cystitis Female Adult Discharge Orders/Prescriptions Prescriptions: New cefdinir 300 mg capsule 300 mg PO BID Qty: 10 0RF aspirin 325 mg Tablet 325 mg PO BREAKFAST Qty: 30 2RF Continued mometasone-formoterol 200-5 mcg/actuation HFA aerosol inhaler 2 inh inhalation PRN Patient Comments: no longer taking per pt 01/13/2024 fluticasone propionate 50 mcg/actuation spray,suspension 2 spray intranasal DAILY Brain health 1 tablet PO DAILY hydrochlorothiazide 25 mg tablet 25 mg PO DAILY sertraline 100 MG tablet 150 mg PO DAILY montelukast 10 MG tablet 10 mg PO DAILY metformin 1,000 MG tablet 1,000 mg PO BID omeprazole 20 MG capsule 20 mg PO QHS ferrous sulfate 325 mg (65 mg iron) tablet 325 mg PO ONCE (DME) compression socks, large Misc See Rx Instructions .Route Qty: 2 0RF Rx Instructions: As directed (DME) Relief Knee Close Toe Stocking Misc See Rx Instructions .ROUTE .COMPLEX Qty: 2 0RF Rx Instructions: Keep on during day, remove at night trazodone 50 mg tablet 50 mg PO QHS polyethylene glycol 3350 [Miralax] 17 gram Powder In Packet 17 g PO DAILY bupropion HCl 150 mg tablet extended release 24 hr 150 mg PO DAILY Patient Comments: TAKE 1 TABLET BY MOUTH ONCE DAILY IN THE MORNING Breztri Aerosphere 160-9-4.8 mcg/actuation HFA aerosol inhaler 2 inh inhalation BID mecobalamin (vitamin B12) 5,000 mcg tablet,chewable 5,000 mcg PO QHS Centrum Silver Women 8 mg iron-400 mcg-50 mcg tablet 1 tab PO DAILY [id number]-hyalur [Move Free Ultra Triple Action] 40-5-3.3 mg tablet 1 tab PO QHS cholecalciferol (vitamin D3) 1,250 mcg (50,000 unit) capsule 1,250 mcg PO FR losartan 100 mg tablet 100 mg PO DAILY loratadine 10 mg tablet 10 mg PO DAILY mirabegron [Myrbetriq] 50 mg tablet extended release 24 hr 50 mg PO DAILY Trulicity 3 mg/0.5 mL pen injector 3 mg subcut QWEEK atorvastatin 20 mg tablet 20 mg PO QHS Qty: 90 3RF Discontinued naproxen sodium 220 mg tablet 220 mg PO BID PRN (Reason: Pain) aspirin [Adult Low Dose Aspirin] 81 mg tablet,delayed release (DR/EC) 81 mg PO DAILY Referrals / Follow Up: [facility],Alayna Gomes [Primary Care Provider] - Within 1 Week Disposition Disposition (needs filled in before D/C Order can be placed): Home, Self Care Charges/Coding Visit Charges Inpatient E&M: 00079 Disch Hosp >30min
--- NOTE | 2024-01-15 12:56 | PCM.DC ---
Discharge Instructions Diet Discharge Diet: Low fat / Low cholesterol Activity Discharge Activity: Return to Normal Activity Weight Bearing Status: Weight bearing as tolerated Dressing / Incision Call your doctor if you observe: Fever of 101 or Higher, Shortness of breath, Dizziness, Fainting spells, Swelling in the ankles and Chest pain Follow Up Care Test Results: Test results from this visit will be discussed in further detail at your follow-up appointment, if applicable. Discharge Plan Admission Admit Date/Time: 01/13/24 16:55 Primary Reason for Your Visit: UTI, dizziness. Attending Provider: Khalida Jimenez [facility] Providers: Nahid Woods; Wojciech Mendez; Estela Mauro; Bridgette Forde; Charlee Adames; Eric Zuniga; Nuris Jones; Cristian Whaley; Wan Pierce; Clemente Bell; Sharon Feldman; Jeffrey Lujan; Stefany Lacy; Wilver Owusu; Enrico Evans; Raghu Meneses; Charlie Bang; Gabriel Paul; Christina Sam; Cedric Martínez; Renu Mitchell; Khalida Jimenez; Madi Diop Instructions Patient Instructions: ED Dizziness, Uncertain Cause, ED Cystitis Female Adult Discharge Orders/Prescriptions Prescriptions: New cefdinir 300 mg capsule 300 mg PO BID Qty: 10 0RF aspirin 325 mg Tablet 325 mg PO BREAKFAST Qty: 30 2RF Continued mometasone-formoterol 200-5 mcg/actuation HFA aerosol inhaler 2 inh inhalation PRN Patient Comments: no longer taking per pt 01/13/2024 fluticasone propionate 50 mcg/actuation spray,suspension 2 spray intranasal DAILY Brain health 1 tablet PO DAILY hydrochlorothiazide 25 mg tablet 25 mg PO DAILY sertraline 100 MG tablet 150 mg PO DAILY montelukast 10 MG tablet 10 mg PO DAILY metformin 1,000 MG tablet 1,000 mg PO BID omeprazole 20 MG capsule 20 mg PO QHS ferrous sulfate 325 mg (65 mg iron) tablet 325 mg PO ONCE (DME) compression socks, large Misc See Rx Instructions .Route Qty: 2 0RF Rx Instructions: As directed (DME) Relief Knee Close Toe Stocking Misc See Rx Instructions .ROUTE .COMPLEX Qty: 2 0RF Rx Instructions: Keep on during day, remove at night trazodone 50 mg tablet 50 mg PO QHS polyethylene glycol 3350 [Miralax] 17 gram Powder In Packet 17 g PO DAILY bupropion HCl 150 mg tablet extended release 24 hr 150 mg PO DAILY Patient Comments: TAKE 1 TABLET BY MOUTH ONCE DAILY IN THE MORNING Breztri Aerosphere 160-9-4.8 mcg/actuation HFA aerosol inhaler 2 inh inhalation BID mecobalamin (vitamin B12) 5,000 mcg tablet,chewable 5,000 mcg PO QHS Centrum Silver Women 8 mg iron-400 mcg-50 mcg tablet 1 tab PO DAILY rnlugggbq-mhukrywy-fsz-hyalur [Move Free Ultra Triple Action] 40-5-3.3 mg tablet 1 tab PO QHS cholecalciferol (vitamin D3) 1,250 mcg (50,000 unit) capsule 1,250 mcg PO FR losartan 100 mg tablet 100 mg PO DAILY loratadine 10 mg tablet 10 mg PO DAILY mirabegron [Myrbetriq] 50 mg tablet extended release 24 hr 50 mg PO DAILY Trulicity 3 mg/0.5 mL pen injector 3 mg subcut QWEEK atorvastatin 20 mg tablet 20 mg PO QHS Qty: 90 3RF Discontinued naproxen sodium 220 mg tablet 220 mg PO BID PRN (Reason: Pain) aspirin [Adult Low Dose Aspirin] 81 mg tablet,delayed release (DR/EC) 81 mg PO DAILY [facility] - Within 1 Week Disposition Disposition (needs filled in before D/C Order can be placed): Home, Self Care
[2024-01-15 13:00] VITALS: BP 130/66; PULSE 81; RESP 16; TEMP 36.6; O2SAT 95
[2024-01-15 13:03] VITALS: PULSE 75; RESP 18
--- NOTE | 2024-01-15 13:28 | CASEMGMT ---
Patient has order for discharge. RN CM in to discuss needs at discharge. Patient independent in halls, no therapy recommended at discharge. Patient denies needs or help at discharge. Patient had no further questions or concerns.
[2024-01-15] MEDS: Insulin Lispro 100 UNIT/ML INSULN.PEN SC (13:44)
--- NOTE | 2024-01-15 14:55 | PHA.DC_ITS ---
Pharmacy [place] Med Reconciliation Pharmacy Service has performed discharge medication reconciliation for this patient. Attempted to supervisor counseling and guidance, patient was already discharged. Medications reviewed. The patient's discharge medication list was reviewed for discrepancies and discrepancies were resolved. Medications at Discharge Home Medications metformin 1,000 mg tablet 1,000 mg PO BID DM 04/14/20 montelukast 10 mg tablet 10 mg PO DAILY 04/14/20 omeprazole 20 mg capsule,delayed release 20 mg PO QHS GERD 04/14/20 sertraline 100 mg tablet 150 mg PO DAILY 04/14/20 fluticasone propionate 50 mcg/actuation nasal spray,suspension 2 spray intranasal DAILY Wheezing 08/03/21 mometasone-formoterol HFA 200 mcg-5 mcg/actuation aerosol inhaler 2 inh inhalation PRN Wheezing 08/03/21 Brain health 1 tablet PO DAILY 08/11/21 compress.stocking,knee,reg,lrg (Relief Knee Close Toe Stocking) #2 ea 09/01/22 compression socks, large #2 ea 09/01/22 bupropion HCl 150 mg 24 hr tablet, extended release 150 mg PO DAILY 09/20/22 polyethylene glycol 3350 17 gram oral powder packet (Miralax) 17 g PO DAILY 09/01 04/24 trazodone 50 mg tablet 50 mg PO QHS 09/20/22 hydrochlorothiazide 25 mg tablet 25 mg PO DAILY 01/04/23 budesonide 160 mcg-glycopyr 9 mcg-formot 4.8 mcg/actuation HFA inhaler (Breztri Aerosphere) 2 inh inhalation BID 07/04/23 cartilage 40 mg-collagen II-boron 5 mg-hyaluronate sod 3.3 mg tablet (Move Free Ultra Triple Action (boron)) 1 tab PO QHS 07/04/23 cholecalciferol (vitamin D3) 1,250 mcg (50,000 unit) capsule 1,250 mcg PO FR 07/04/23 mecobalamin (vitamin B12) 5,000 mcg chewable tablet 5,000 mcg PO QHS 07/04/23 zcohswbg-rwql-dvoi 8 mg-folic 400 mcg-K 50 mcg-lutein 300 mcg tablet (Centrum Silver Women) 1 tab PO DAILY 07/04/23 atorvastatin 20 mg tablet 20 mg PO QHS #90 tabs 10/31/23 ferrous sulfate 325 mg (65 mg iron) tablet 325 mg PO ONCE SUPPLEMENT 01/08/24 dulaglutide 3 mg/0.5 mL subcutaneous pen injector (Trulicity) 3 mg subcut QWEEK 01/13/24 loratadine 10 mg tablet 10 mg PO DAILY 01/13/24 losartan 100 mg tablet 100 mg PO DAILY 01/13/24 mirabegron 50 mg tablet,extended release 24 hr (Myrbetriq) 50 mg PO DAILY 01/13/24 aspirin 325 mg tablet 325 mg PO BREAKFAST #30 tabs 01/15/24 cefdinir 300 mg capsule 300 mg PO BID #10 caps 01/15/24
== END 2024-01-15 12:47 | disposition home or self-care (01) ==
LOC: ED 14:11 → PCU 16:54
PROVIDERS: Admitting Provider Internal Medicine; Emergency Provider Surgery; Visit Provider Student in an Organized Health Care Education/Training Program
DX: N39.0 Urinary tract infection, site not specified (principal); J44.89 Other specified chronic obstructive pulmonary disease; Z68.41 Body mass index [BMI] 40.0-44.9, adult; E66.01 Morbid (severe) obesity due to excess calories; E11.65 Type 2 diabetes mellitus with hyperglycemia; I25.10 Atherosclerotic heart disease of native coronary artery without angina pectoris; I10 Essential (primary) hypertension; F17.210 Nicotine dependence, cigarettes, uncomplicated; Z79.85 Long-term (current) use of injectable non-insulin antidiabetic drugs; Z86.16 Personal history of COVID-19; K21.9 Gastro-esophageal reflux disease without esophagitis; E78.00 Pure hypercholesterolemia, unspecified; Z23 Encounter for immunization; R42 Dizziness and giddiness; F32.A Depression, unspecified; Z79.899 Other long term (current) drug therapy; Z79.82 Long term (current) use of aspirin; Z79.51 Long term (current) use of inhaled steroids
CPT/HCPCS: 36415; 70496; 70498; 70551; 71045; 80048; 80053; 80061; 81001; 82962; 83735; 84484; 85025; 87077; 87086; 87088; 87186; 90662; 93005; 93306; 94640; 94668; 94762; 96365; 96366; 96372; 97161; 97166; 97802; 99221; 99284; G0008; Q9967; A4216; G0378

== ENCOUNTER → 2024-03-25 | Outpatient (CLI) | payer MEDICARE, SELFPAY ==
--- NOTE | 2024-03-25 13:21 | RAD_ITS ---
EXAM: XR CHEST, 2 VIEWS CLINICAL INDICATION: ongoing cough TECHNIQUE: Frontal and lateral views of the chest. COMPARISON: 01/13/2024. FINDINGS: LUNGS AND PLEURAL SPACES: Unremarkable. No consolidation or edema. No pneumothorax. No effusion. HEART: Mild cardiomegaly. MEDIASTINUM: Central airways and mediastinal contour are unremarkable. BONES/JOINTS: Left metallic shoulder arthroplasty is intact. No acute fracture. SOFT TISSUES: Unremarkable. RAD/Chest PA and Lateral IMPRESSION: 1. No acute findings in the chest. 2. No significant interval change. Electronically Signed: Haroon Bhandari MD at 14:19 EST ,
== END | disposition home or self-care (01) ==
LOC: MTRAD 13:21
PROVIDERS: Referring Provider Physician Assistant Surgical; Visit Provider Physician Assistant Surgical
DX: J06.9 Acute upper respiratory infection, unspecified (principal)
CPT/HCPCS: 71046

== ENCOUNTER → 2024-04-08 | Outpatient (CLI) | payer MEDICARE, SELFPAY ==
[2024-04-08 12:40] LABS: Absolute Neutrophil Count 6.1 X10^3/uL (2.0-7.7); Basophil# 0.03 X10^3/uL; Basophil% 0.4 % (0-1); Eosinophil# 0.14 X10^3/uL; Eosinophils% 1.7 % (0-5); Hemoglobin 11.5 g/dL (12.0-15.0); Lymphocyte % 20.2 % (19-41); Mean Corp Hgb Conc 31.1 g/dL (32-36); Mean Corpuscular Hgb 25.7 pg (27.0-32.0); Mean Corpuscular Volume 82.6 fL (81-99); Mean Platelet Vol. 9.3 fl (6.2-12.0); Monocyte# 0.43 X10^3/uL; Monocyte% 5.1 % (0-10); NRBC Flagged by Analyzer 0 % (0-5); Neutrophil % 72.4 % (47-70); Platelet Count 401 K/mm3 (150-450); RBC Distribution Width SD 49.8 fl (35.1-43.9); Red Blood Count 4.48 M/mm3 (4.2-5.4); White Blood Count 8.4 K/mm3 (4.4-11.0)
[2024-04-08 13:20] LABS: AST(SGOT) 11 U/L (15-37); Alanine Aminotransfer ALT/SGPT 23 U/L (13-56); Albumin, Serum 3.6 g/dL (3.2-5.0); Alkaline Phosphatase 100 U/L (45-117); Anion Gap 5 (5-15); BUN 11 mg/dL (7-18); BUN/Creat Ratio 15.4 RATIO (10-20); Calcium,Total 9.7 mg/dL (8.5-10.1); Chloride 101 mmol/L (98-107); Cholesterol 124 mg/dL (200); Creatinine, Serum 0.71 mg/dL (0.55-1.02); EST Glomerular Filtration Rate 87 mL/min (>60); Est Glom Filt Rate - Afr Amer 105 mL/min (>60); Globulin 3.5 g/dL (2.2-4.2); Glucose 121 mg/dL (74-106); High Density Lipoprotein 66 mg/dL; Potassium 3.8 mmol/L (3.5-5.1); Protein, Total 7.1 g/dL (6.4-8.2); Sodium Level 134 mmol/L (136-145); Triglycerides 82 mg/dL; Very Low Density Lipoprotein 16 mg/dL (5-40)
[2024-04-08 13:22] LABS: Microalbumin,Random Urine 12.7 mg/L (NO RANGE EST.)
== END | disposition home or self-care (01) ==
PROVIDERS: PCP Nurse Practitioner Family
DX: E11.9 Type 2 diabetes mellitus without complications (principal); E78.5 Hyperlipidemia, unspecified
CPT/HCPCS: 36415; 80053; 80061; 82043; 84443; 85025

== ENCOUNTER → 2024-04-25 | Outpatient (CLI) | payer MEDICARE, SELFPAY ==
--- NOTE | 2024-04-25 11:46 | RAD_ITS ---
STUDY: X-RAY - LEFT KNEE REASON FOR EXAM: Female, 64 years old. Knee pain. TECHNIQUE: 4 view(s) of the knee. COMPARISON: None. FINDINGS: Degenerative spurs are seen along the medial femoral condyle and medial tibial plateau. Normal visualized proximal tibia and fibula. Normal proximal tibiofibular articulation. There is severe degenerative arthrosis of the medial femorotibial compartment with severe joint space narrowing. Normal lateral femorotibial compartment. There is moderate degenerative arthrosis of the patellofemoral articulation. The soft tissue structures are unremarkable. RAD/Knee 3 Views IMPRESSION: Degenerative arthrosis. Electronically Signed: Christopher Romeo MD at 11:57 EST ,
== END | disposition home or self-care (01) ==
LOC: MTRAD 11:30
PROVIDERS: PCP Nurse Practitioner Family; Referring Provider Physician Assistant Surgical; Visit Provider Physician Assistant Surgical
DX: M25.561 Pain in right knee (principal)
CPT/HCPCS: 73562

== ENCOUNTER → 2024-09-09 | Outpatient (CLI) | payer MEDICARE, SELFPAY ==
--- NOTE | 2024-09-09 10:06 | MRI_ITS ---
PROCEDURE: SPINE LUMBAR (ROUTINE) 09/09/2024 REASON FOR EXAM: RADICULOPATHY TECHNIQUE: Multiplanar and multisequence images were obtained without IV contrast administration. COMPARISON: Radiographs on 08/14/2024. FINDINGS: Moderate diffuse spondylosis. Moderate multilevel degenerative disc disease. There is normal signal intensity from the visualized bone marrow without evidence of replacement or acute fracture. The conus is unremarkable. Mildly exaggerated lumbar lordosis. The vertebral alignment is within normal limits. Evaluation of the individual levels revealed the following: L5-S1: There is mild diffuse disc bulge. Bilateral facet joint arthropathy. The spinal canal is not narrowed. There is no evidence of neural foramina narrowing. L4-5: There is grade 1 anterolisthesis measuring 3.7 mm. Mild diffuse disc bulge. Bilateral facet joint arthropathy and ligamentum flavum hypertrophy. The spinal canal is not narrowed. There is no evidence of neural foramina narrowing. L3-4: There is mild diffuse disc bulge. The spinal canal is not narrowed. There is mild bilateral neural foramina narrowing. L2-3: There is mild diffuse disc bulge. The spinal canal is not narrowed. There is mild bilateral neural foramina narrowing. L1-2: There is grade 1 anterolisthesis measuring 2.7 mm with mild diffuse disc bulge. The spinal canal is not narrowed. There is mild bilateral neural foramina narrowing. T12-L1: There is moderate diffuse disc bulge. The spinal canal is not narrowed. There is mild bilateral neural foramina narrowing. T11-T12: There is moderate diffuse disc bulge. The spinal canal is not narrowed. There is mild bilateral neural foramina narrowing. Normal visualized paraspinous soft tissue structures. Well-defined 1.2 cm Tarlov sacral nerve root cyst at S2 level. MRI/Spine Lumbar (Routine) IMPRESSION: Spondylosis. Degenerative disc disease. Reading [facility]
== END | disposition home or self-care (01) ==
PROVIDERS: PCP Nurse Practitioner Family; Referring Provider Anesthesiology Pain Medicine; Visit Provider Anesthesiology Pain Medicine
DX: M54.16 Radiculopathy, lumbar region (principal)
CPT/HCPCS: 72148

== ENCOUNTER 2024-09-19 10:00 | Outpatient (RCR) | payer MEDICARE, SELFPAY ==
--- NOTE | 2024-08-26 10:55 | HP.PTEVAL_ITS ---
Patient's Visit Information Visit Information Visit Information: DAPHNEY MEADE is a 64 year old F referred to Physical Therapy by SENTHIL Suazo with a diagnosis of LBP, L hip pain, L knee DDD. 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 Pt had L knee pain and she went to orthopedic and they did cortisone shot and now she is walking better. Last week she feels like her hip is not attached. Her upper parts of her legs are weak and tire. She just wants to be able to do what she needs to do. She is not having any back pain but if she were to walk a little she would probably feel it. Right now she has hip and knee pain. Her thighs is what bothers her muscle adams. Pain L hip pain: Pain Intensity (Out of 10): 4 R hip pain: Pain Intensity (Out of 10): 0 L knee pain: Pain Intensity (Out of 10): 5 R knee pain: Pain Intensity (Out of 10): 4 Objective Objective: Gait: Walks with short stride, straight legs, no heel to toe gait pattern, no trunk rotation or arm swing. LE MMT: R hip flex 10.7 and L 9 R knee ext 18.8 and L 18.6 R knee flex 9.6 and L 9.8 R hip and 18 and L 13.6 Bridges: able to get up 3/4 normal ROM with some increase pain Heel and toe raises: able to raise heels and toes using a hand rail with some increase pain up the back of her leg Trunk AROM: flexion 75%, Ext 50%, SB B 75%, Rot B 25% R knee AROM -8 to 115 L knee AROM -10 to 105 PROM R hip: approx to 110 degrees flexion with minimal hip IR with increase pain. No pain with ER PROM L hip: aprrox 120 degrees flexion with minimal hip IR with increase pain. Slight pain with ER Balance/Special Test Scores Oswestry Low Back Score: 23 Goals Goal 1:: I HEP Goal Time Frame: 6-8 Weeks Goal 2:: Be able to walk back to the treatment area with increased stride length and more heel to toe gait pattern Goal Time Frame: 6-8 Weeks Goal 3:: Decrease B hip and knee pain by 50% with gait Goal Time Frame: 6-8 Weeks Goal 4:: Increase LE strength (at the time of the eval: LE MMT: R hip flex 10.7 and L 9 R knee ext 18.8 and L 18.6 R knee flex 9.6 and L 9.8 R hip and 18 and L 13.6) Goal Time Frame: 6-8 Weeks Rehabilitation Potential Rehabilitation Potential: Good Anticipated Interventions Patient/Client Instruction: Educate patient on: Condition and Plan of Care For the Purpose of:: To decrease pain, To increase ROM, To improve nutrient delivery to tissue, To improve muscle performance and motor function, To improve ability to perform ADL's, To increase tolerance to activity/condition/position, To improve performance and independence with ADL's, To decrease level of supervision to perform tasks, To improve ability of physical actions for home/community/work/leisure, To improve gait and locomotor functions, To improve health of tissue, To decrease soft tissue restriction, To increase flexibility/ROM and To improve endurance Therapeutic Exercise to Include: Strength training, Postural training, Flexibilty training, Gait and locomotor training, Active ROM and Dynamic Lumbar Stabilization For the Purpose of:: To decrease pain, To decrease swelling/inflammation, To increase ROM, To improve nutrient delivery to tissue, To improve muscle performance and motor function, To improve ability to perform ADL's, To increase tolerance to activity/condition/position, To improve ability of physical actions for home/community/work/leisure, To improve gait and locomotor functions, To improve health of tissue, To decrease soft tissue restriction and To increase flexibility/ROM Functional Training to Include: Gait training For the Purpose of:: To improve gait and locomotor functions Manual Therapy Techniques to Include: Passive ROM For the Purpose of:: To increase ROM and To improve muscle performance and motor function Text: Thank you for the opportunity to evaluate your patient. For Medicare and Medicare HMO plans, please review the plan of care and approve it. It will need to be FAXED BACK to us at [phone] for Medicare purposes. For Medicare only, by signing this I certify the plan of care. Please let me know if there are questions or concerns regarding this plan of care. Physician Signature: Date:
--- NOTE | 2024-09-19 10:57 | HP.PTREVAL ---
Re-Evaluation Intro: Christiana Amaral, YASMANI-C, It has been my pleasure to treat DAPHNEY MEADE over the last 9 visits for LBP, L hip pain, L knee DDD. Please see the progress note below for an update on the physical therapy plan of care! Subjective Subjective: Saw the Dr yesterday. per pt, slight bulging disc, degeneration in spine. per pt, Dr thinks she has a tight ligament in her hip. pt feels PT is helping. Pain management injections soon. Pt has more pain in her L hip and down the side of her R leg. Today is the first day she has felt less pain to actually do something Objective Objective/Function: LE MMT: R hip flex 10.7 and L 9 R knee ext 18.8 and L 18.6 R knee flex 9.6 and L 10.3 R hip abd 18 and L 13.6 Piriformis Tight on the L and painful Palpation: tender along the L greater trochanter, IT band and piriformis Gait: hard to advance L LE with gait and does not take as long of a stride as the R. Decreased stance time on the L LE but walking more upright and less flat footed Plan Plan Plan: Ask for additional 4 weeks as pt is improving in function with less pain 2X/ week for 8 weeks for hip and knee ROM, strengthening, core stability with HEP Balance/Gait/Functional tests Balance/Special Test Scores Oswestry Low Back Score: 17 Goals Goals Goal 1:: I HEP Goal Time Frame: 6-8 Weeks Goal Progress: Goal Met Goal 2:: Be able to walk back to the treatment area with increased stride length and more heel to toe gait pattern Goal Time Frame: 6-8 Weeks Goal Progress: Progressing Goal 3:: Decrease B hip and knee pain by 50% with gait Goal Time Frame: 6-8 Weeks Goal Progress: Progressing Goal 4:: Increase LE strength (at the time of the eval: LE MMT: R hip flex 10.7 and L 9 R knee ext 18.8 and L 18.6 R knee flex 9.6 and L 9.8 R hip and 18 and L 13.6) Goal Time Frame: 6-8 Weeks Goal Progress: Progressing Anticipated Interventions Anticipated Interventions Patient/Client Instruction: Educate patient on: Condition and Plan of Care For the Purpose of:: To decrease pain, To increase ROM, To improve nutrient delivery to tissue, To improve muscle performance and motor function, To improve ability to perform ADL's, To increase tolerance to activity/condition/position, To improve performance and independence with ADL's, To decrease level of supervision to perform tasks, To improve ability of physical actions for home/community/work/leisure, To improve gait and locomotor functions, To improve health of tissue, To decrease soft tissue restriction, To increase flexibility/ROM and To improve endurance Therapeutic Exercise to Include: Strength training, Postural training, Flexibilty training, Gait and locomotor training, Active ROM and Dynamic Lumbar Stabilization For the Purpose of:: To decrease pain, To decrease swelling/inflammation, To increase ROM, To improve nutrient delivery to tissue, To improve muscle performance and motor function, To improve ability to perform ADL's, To increase tolerance to activity/condition/position, To improve ability of physical actions for home/community/work/leisure, To improve gait and locomotor functions, To improve health of tissue, To decrease soft tissue restriction and To increase flexibility/ROM Functional Training to Include: Gait training For the Purpose of:: To improve gait and locomotor functions Manual Therapy Techniques to Include: Passive ROM For the Purpose of:: To increase ROM and To improve muscle performance and motor function Re-Evaluation Ending Re-evaluation ending: Please do not hesitate to contact me at [phone] by phone or if you have questions or concerns regarding this new plan of care! Sincerely, DENISE Childers
--- NOTE | 2024-12-08 14:08 | HP.PT.NRP ---
Patient Information Patient Information: DAPHNEY MEADE was seen in my office for initial evaluation on 08/26/24. The following Plan of Care was established for this patient: POC Established Initial Frequency: 2x /Week Initial Duration: 2 Months Anticipated Interventions Patient/Client Instruction: Educate patient on: Condition and Plan of Care For the Purpose of:: To decrease pain, To increase ROM, To improve nutrient delivery to tissue, To improve muscle performance and motor function, To improve ability to perform ADL's, To increase tolerance to activity/condition/position, To improve performance and independence with ADL's, To decrease level of supervision to perform tasks, To improve ability of physical actions for home/community/work/leisure, To improve gait and locomotor functions, To improve health of tissue, To decrease soft tissue restriction, To increase flexibility/ROM and To improve endurance Therapeutic Exercise to Include: Strength training, Postural training, Flexibilty training, Gait and locomotor training, Active ROM and Dynamic Lumbar Stabilization For the Purpose of:: To decrease pain, To decrease swelling/inflammation, To increase ROM, To improve nutrient delivery to tissue, To improve muscle performance and motor function, To improve ability to perform ADL's, To increase tolerance to activity/condition/position, To improve ability of physical actions for home/community/work/leisure, To improve gait and locomotor functions, To improve health of tissue, To decrease soft tissue restriction and To increase flexibility/ROM Functional Training to Include: Gait training For the Purpose of:: To improve gait and locomotor functions Manual Therapy Techniques to Include: Passive ROM For the Purpose of:: To increase ROM and To improve muscle performance and motor function Last Seen Last Seen: This patient was last seen in our office 09/19/24. Pertinent comments regarding their Physical therapy will appear below: SHIRA PT At this point I will be discontinuing this patient from physical therapy. I would be happy to see this patient again in the future if found appropriate by the physician. Thank you! Fabienne Brambila, DENISE Balance/Gait/Functional tests Balance/Special Test Scores Oswestry Low Back Score: 17
== END 2024-09-19 19:00 | disposition home or self-care (01) ==
LOC: PT 10:00
PROVIDERS: PCP Nurse Practitioner Family; Referring Provider Nurse Practitioner Family; Visit Provider Nurse Practitioner Family
DX: M17.12 Unilateral primary osteoarthritis, left knee (principal); M54.10 Radiculopathy, site unspecified; M25.552 Pain in left hip
CPT/HCPCS: 97110; 97162; 97530

== ENCOUNTER → 2024-10-07 | Outpatient (CLI) | payer MEDICARE, SELFPAY ==
[2024-10-07 11:13] LABS: Hematocrit 37.0 % (37-47); Hemoglobin 12.6 g/dL (12.0-15.0); Immature Granulocytes Count 0.050 X10^3/uL (0.0-0.0); Mean Corp Hgb Conc 34.1 g/dL (32-36); Mean Corpuscular Volume 82.4 fL (81-99); Mean Platelet Vol. 10.1 fl (6.2-12.0); NRBC Flagged by Analyzer 0 % (0-5); Platelet Count 356 K/mm3 (150-450); RBC Distribution Width CV 14.3 % (11.6-14.6); RBC Distribution Width SD 42.5 fl (35.1-43.9); Red Blood Count 4.49 M/mm3 (4.2-5.4); White Blood Count 12.1 K/mm3 (4.4-11.0)
[2024-10-07 12:57] LABS: AST(SGOT) 18 U/L (<=31); Alanine Aminotransfer ALT/SGPT 19 U/L (<=34); Albumin, Serum 4.3 g/dL (3.4-4.8); Alkaline Phosphatase 115 U/L (35-104); Anion Gap 15 (5-15); BUN 18 mg/dL (4-19); BUN/Creat Ratio 22.1 RATIO (10-20); Calcium,Total 10.1 mg/dL (7.6-11.0); Carbon Dioxide 24.8 mmol/L (21.0-32.0); Chloride 94 mmol/L (98-108); Cholesterol 135 mg/dL (<=200); Globulin 2.8 g/dL (2.2-4.2); Glucose 152 mg/dL (70-99); Low Density Lipoprotein Calc. 51 mg/dL; Magnesium 1.9 mg/dL (1.5-2.2); Potassium 4.5 mmol/L (3.3-5.1); Triglycerides 69 mg/dL; Very Low Density Lipoprotein 14 mg/dL (5-40); Vitamin D,25 Hydroxy 64.6 ng/mL (30-100); cholesterol:hdl ratio screen 1.91
== END | disposition home or self-care (01) ==
LOC: LAB 09:26
PROVIDERS: PCP Nurse Practitioner Family; Referring Provider Nurse Practitioner Family; Visit Provider Nurse Practitioner Family
DX: I10 Essential (primary) hypertension (principal); E78.5 Hyperlipidemia, unspecified; E55.9 Vitamin D deficiency, unspecified; G62.9 Polyneuropathy, unspecified
CPT/HCPCS: 36415; 80053; 80061; 82306; 83735; 84443; 85025

== ENCOUNTER 2024-10-29 13:45 | Outpatient (RCR) | payer MEDICARE, SELFPAY | END 2024-10-30 23:59 | LOC: NS 13:45 | PROVIDERS: PCP Nurse Practitioner Family; Referring Provider Nurse Practitioner Family; Visit Provider Nurse Practitioner Family | DX: Z71.3 Dietary counseling and surveillance (principal); E11.9 Type 2 diabetes mellitus without complications; E66.813 Obesity, class 3; Z68.41 Body mass index [BMI] 40.0-44.9, adult | CPT/HCPCS: 97802 ==

== ENCOUNTER 2024-12-02 09:31 | Outpatient (RCR) | payer MEDICARE, SELFPAY | END 2024-12-30 23:59 | LOC: NS 09:31 | PROVIDERS: PCP Nurse Practitioner Family; Referring Provider Nurse Practitioner Family; Visit Provider Nurse Practitioner Family | DX: Z71.3 Dietary counseling and surveillance (principal); E11.9 Type 2 diabetes mellitus without complications; E66.813 Obesity, class 3; Z68.41 Body mass index [BMI] 40.0-44.9, adult | CPT/HCPCS: 97803 ==

== ENCOUNTER → 2024-12-15 | Outpatient (CLI) | payer MEDICARE, SELFPAY ==
--- NOTE | 2024-12-15 15:18 | BI_ITS ---
EXAM: SCRN MAMM (CAD)W/REYNA BILAT DATE: 12/15/2024 CLINICAL HISTORY: F, Age 64 y/o , SCREENING History of grandmother with breast cancer. TECHNIQUE: Procedure Code: [id number] Modality: MG Procedure: SCRN MAMM (CAD)W/REYNA BILAT COMPARISON: Prior exam(s) dated July 30, 2020.. FINDINGS: TISSUE DENSITY: The breasts are almost entirely fatty. Bilateral Breast Mammographic Findings: No significant masses, calcifications or other abnormalities are identified. No suspicious masses, areas of developing architectural distortion, or suspicious calcifications. There has been no significant interval change. BI/SCRN MAMM (CAD)W/REYNA BILAT IMPRESSION: Stable bilateral screening mammogram. OVERALL FINAL ASSESSMENT BI-RADS 2: BENIGN RECOMMENDATION: Routine annual follow-up in 1 Year A letter with findings and recommendations will be mailed to the patient. Reading Location: [place] [id number]
== END | disposition home or self-care (01) ==
LOC: OPBI 15:17
PROVIDERS: PCP Nurse Practitioner Family
DX: Z12.31 Encounter for screening mammogram for malignant neoplasm of breast (principal)
CPT/HCPCS: 77063; 77067

== ENCOUNTER → 2025-01-05 | Outpatient (CLI) | payer MEDICARE, SELFPAY ==
[2025-01-05 16:55] LABS: Hematocrit 33.9 % (37-47); Hemoglobin 10.6 g/dL (12.0-15.0); Immature Granulocytes Count 0.030 X10^3/uL (0.0-0.0); Mean Corp Hgb Conc 31.3 g/dL (32-36); Mean Corpuscular Volume 77.2 fL (81-99); Mean Platelet Vol. 9.6 fl (6.2-12.0); NRBC Flagged by Analyzer 0 % (0-5); Platelet Count 440 K/mm3 (150-450); RBC Distribution Width CV 15.3 % (11.6-14.6); RBC Distribution Width SD 42.7 fl (35.1-43.9); Red Blood Count 4.39 M/mm3 (4.2-5.4); White Blood Count 10.5 K/mm3 (4.4-11.0)
[2025-01-05 17:19] LABS: AST(SGOT) 15 U/L (<=31); Alanine Aminotransfer ALT/SGPT 17 U/L (<=34); Albumin, Serum 4.1 g/dL (3.4-4.8); Alkaline Phosphatase 96 U/L (35-104); Amylase 53 U/L (28-100); Anion Gap 15 (5-15); BUN 19 mg/dL (4-19); BUN/Creat Ratio 22.8 RATIO (10-20); Calcium,Total 9.4 mg/dL (7.6-11.0); Carbon Dioxide 22.3 mmol/L (21.0-32.0); Chloride 97 mmol/L (98-108); Globulin 2.3 g/dL (2.2-4.2); Glucose 209 mg/dL (70-99); Lipase 48 U/L (13-75); Potassium 4.1 mmol/L (3.3-5.1)
[2025-01-07 12:10] LABS: Ferritin 11 ng/mL (22-378); Iron 28 ug/dL (50-170); Iron Binding Capacity,Total 366 ug/dL (250-450); Iron Binding Capacity,Unsat 338 ug/dL (228-428)
== END | disposition home or self-care (01) ==
LOC: VSLAB 14:29
PROVIDERS: PCP Nurse Practitioner Family
DX: R10.11 Right upper quadrant pain (principal); D64.9 Anemia, unspecified
CPT/HCPCS: 36415; 80053; 82150; 82728; 83540; 83550; 83690; 85025

== ENCOUNTER 2025-01-12 13:26 | Outpatient (RCR) | payer MEDICARE, SELFPAY | END 2025-01-30 23:59 | LOC: NS 13:26 | PROVIDERS: PCP Nurse Practitioner Family; Referring Provider Nurse Practitioner Family; Visit Provider Nurse Practitioner Family | DX: Z71.3 Dietary counseling and surveillance (principal); E11.9 Type 2 diabetes mellitus without complications; E66.813 Obesity, class 3; Z68.41 Body mass index [BMI] 40.0-44.9, adult | CPT/HCPCS: 97803 ==

== ENCOUNTER → 2025-01-14 | Outpatient (CLI) | payer MEDICARE, SELFPAY ==
--- NOTE | 2025-01-14 14:10 | NEURO_ITS ---
NCS and/or EMG Patient Report Ordering Doctor: Yvrose Tejeda [facility] DATE OF SERVICE: 01/14/25 Radha presents with complaints of a, burning in nature on the outer side of the left leg. Electrodiagnostic findings: Peroneal motor nerve demonstrates normal distal latency, amplitude and conduction velocity bilaterally. Normal tibial motor response bilaterally. Normal tibial and peroneal F?waves. Normal H?reflex bilaterally. Prolonged sural latency is noted bilaterally. Normal superficial peroneal response bilaterally. Needle EMG testing was performed the lower limbs. All muscles tested showed no evidence of denervation with normal motor unit action potentials. Electrodiagnostic impression: This is an abnormal study. 1. 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 2. There is no electrodiagnostic evidence for peripheral polyneuropathy. Multi Select Codes Neurology Neurology Interp Codes: 20078-36 Musc test done w/n test comp (interp) (2) and 33021-35 Nrv cndj test 9-10 studies (interp)
--- NOTE | 2025-01-14 14:10 | NEURO_ITS ---
NCS and/or EMG Patient Report Ordering Doctor: Yvrose Tejeda [facility] DATE OF SERVICE: 01/14/25 Radha presents with complaints of a, burning in nature on the outer side of the left leg. Electrodiagnostic findings: Peroneal motor nerve demonstrates normal distal latency, amplitude and conduction velocity bilaterally. Normal tibial motor response bilaterally. Normal tibial and peroneal F?waves. Normal H?reflex bilaterally. Prolonged sural latency is noted bilaterally. Normal superficial peroneal response bilaterally. Needle EMG testing was performed the lower limbs. All muscles tested showed no evidence of denervation with normal motor unit action potentials. Electrodiagnostic impression: This is an abnormal study. 1. 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 2. There is no electrodiagnostic evidence for peripheral polyneuropathy. Multi Select Codes Neurology Neurology Interp Codes: 69285-74 Musc test done w/n test comp (interp) (2) and 84441-19 Nrv cndj test 9-10 studies (interp)
== END | disposition home or self-care (01) ==
LOC: PSN 12:03
PROVIDERS: PCP Nurse Practitioner Family; Referring Provider Nurse Practitioner Family; Visit Provider Nurse Practitioner Family
DX: G62.9 Polyneuropathy, unspecified (principal); M79.604 Pain in right leg; M79.605 Pain in left leg
CPT/HCPCS: 95886; 95911

== ENCOUNTER → 2025-01-26 | Outpatient (CLI) | payer MEDICARE, SELFPAY ==
--- NOTE | 2025-01-26 08:39 | US_ITS ---
PROCEDURE: ABD LIMITED W/ ELASTOGRAPHY REASON FOR EXAM: RUQ PAIN COMPARISON: None. TECHNIQUE: Procedure Code: [id number] Modality: US Procedure: ABD LIMITED W/ ELASTOGRAPHY Right upper quadrant abdominal ultrasound. [employer] ElastQ Imaging shear wave elastography for non-invasive assessment of liver tissue stiffness. Eric EPIQ Elite. FINDINGS: LIVER: Size: Enlarged (hepatomegaly) Length: 20 cm Echotexture: Diffusely echogenic suggesting fatty infiltration Contour: Normal Lesions: 1.4 cm 1.3 cm x 1.1 cm right hepatic cyst. Elastography: EQI Med: 5.7 kPa EQI Med Lisandro: 1.3 cm m/s IQR/Med: 7.9 %* GALLBLADDER: Surgically absent. COMMON BILE DUCT: Dilated measuring up to 7.1 mm . PANCREAS: Normal Visualized portions of the right kidney are unremarkable. No right upper quadrant ascites. US/ABD Limited w/ Elastography IMPRESSION: NO TO MILD HEPATIC FIBROSIS Hepatomegaly. Fatty infiltration of the liver. Status post cholecystectomy. Reference Values: SRU <1.37 m/s (5.7kPa): No to mild fibrosis 1.37 m/s - 2.2 m/s: Moderate to severe fibrosis >2.2 m/s (15kPa): Significant fibrosis / cirrhosis METAVIR Score F2 or higher: 1.34 m/s (5.7kPa) F3 or higher: 1.55 m/s (7.3kPa) F4: 1.80 m/s (10kPa) * If the IQR/Med is >30%, the variance in the measurements is a large and the a ccuracy of the measurement may be in question. Reading Location: [id number]
== END | disposition home or self-care (01) ==
PROVIDERS: PCP Nurse Practitioner Family
DX: R10.11 Right upper quadrant pain (principal)
CPT/HCPCS: 76705; 76981

== ENCOUNTER → 2025-02-12 | Outpatient (CLI) | payer MEDICARE, SELFPAY ==
[2025-02-12 16:52] LABS: Hematocrit 32.0 % (37-47); Hemoglobin 9.8 g/dL (12.0-15.0); Immature Granulocytes Count 0.010 X10^3/uL (0.0-0.0); Mean Corp Hgb Conc 30.6 g/dL (32-36); Mean Corpuscular Volume 76.7 fL (81-99); Mean Platelet Vol. 10.0 fl (6.2-12.0); NRBC Flagged by Analyzer 0 % (0-5); Platelet Count 328 K/mm3 (150-450); RBC Distribution Width CV 16.8 % (11.6-14.6); RBC Distribution Width SD 46.5 fl (35.1-43.9); Red Blood Count 4.17 M/mm3 (4.2-5.4); White Blood Count 7.3 K/mm3 (4.4-11.0)
[2025-02-12 17:36] LABS: Ferritin 11 ng/mL (22-378); Iron 20 ug/dL (50-170); Iron Binding Capacity,Total 373 ug/dL (250-450); Iron Binding Capacity,Unsat 353 ug/dL (228-428)
== END | disposition home or self-care (01) ==
LOC: LAB.FUTURE 13:33 → VSLAB 13:34
PROVIDERS: PCP Nurse Practitioner Family
DX: D50.9 Iron deficiency anemia, unspecified (principal)
CPT/HCPCS: 36415; 82728; 83540; 83550; 85025

== ENCOUNTER → 2025-02-17 | Outpatient (CLI) | payer MEDICARE, SELFPAY ==
[2025-02-17 14:37] LABS: Mucous, Urine 0 SEEN /hpf (<or=2+); Red Blood Cells-Urine 0 SEEN /hpf (0-5)
[2025-02-17 18:08] LABS: Color, Urine Yellow (Yellow); Glucose, Dipstick Normal (Normal); Ketone-Dipstick Negative (Negative); Leukocyte Esterase-Dipstick 25 /ul (Negative); Nitrite-Dipstick Negative (Negative); Occult Blood-Urine Negative /ul (Negative); Protein-Dipstick Negative (Negative); Specific Gravity, Urine 1.010 (1.002-1.030); Urine Bilirubin Dipstick Negative (Negative)
[2025-02-17 18:43] LABS: Squamous Epithelial Cells - UA 10-25 SEEN /hpf (5-10)
--- OUTSIDE RECORDS SUMMARY | 2025-02-17 18:54 | XMS RPT_ITS | CCD ---
Author Organization [facility]ini[facility] Care Team Providers Care Mother Superior Name Role Phone EDMUNDO WALL Admitting Unavailable EDMUNDO WALL Attending Unavailable EDMUNDO WALL Primary Care Unavailable ALANIS WHITFIELD Referring Unavailable NO, DOCTOR ON Consulting Unavailable ANA LOGAN MD Admitting Unavailable ANA LOGAN MD Attending Unavailable ANA LOGAN MD Primary Care Unavailable NO, DOCTOR ON Consulting Unavailable NO, DOCTOR ON Referring Unavailable PROVIDER, UNKNOWN Attending Unavailable PROVIDER, UNKNOWN Admitting Unavailable [facility] Primary Care Pro vider [facility] Referring Provid er Dr. Maykel Mckinley Attending Provider [phone] Dr. Guanakito Siu Attending Provider [phone] Dr. Fred Vines Attending Provider [phone] Dr. Fred Vines Referring Provider [phone] Dr. Fred Vines Other Provider [phone] [facility] Primary Care Pro vider Dr. Fred Vines Attending Provider [phone] Dr. Fred Vines Referring Provider [phone] Dr. Fred Vines Other Provider [phone] [facility] Referring Provid er Joseph PROCTOLOGIST, YASMANI-Shannan Rodriguez Attending Provider [phone] [facility] Primary Care Pro vider [facility] [place] Referring Provid er Dr. Maykel Mckinley Attending Provider [phone] MD [address] Attending Provider [phone] Dr. Guanakito Siu Attending Provider [phone] [facility] [place] Primary Care Pro vider [facility] [place] Referring Provid er Dr. Maykel Mckinley Attending Provider [phone] Attending Provider [phone] Dr. Guanakito Siu Attending Provider [phone] ISAI Ferro Attending Provider Dr. Antonio Donahue Attending Provider Dr. Emory Hugo Referring Provider Dr. Jerry Boggs Attending Provider [phone] Declan Méndez Attending Provider [phone] [facility] [place] Primary Care Pro vider [facility] [place] Referring Provid er Dr. Maykel Mckinley Attending Provider [phone] Attending Provider [phone] Referring Provider [phone] Other Provider [phone] Nikhil PROCTOLOGIST, PROCTOLOGIST-C Yvrose Other Provider [facility] [place] Primary Care Pro vider [facility] [place] Referring Provid er Dr. Declan Méndez Referring Provider [phone] ISAI Ferrer Referring Provider Dr. Guanakito Siu Attending Provider [phone] ISAI Ferrer Attending Provider Dr. Jerry Boggs Attending Provider [phone] [facility] [place] Primary Care Pro vider [facility] [place] Referring Provid er MD [address]io [address] Attending Provider [phone] Nikhil PROCTOLOGIST, PROCTOLOGIST-C Yv[place] Primary Care Provider Franci CATTLE RANCHER, Genesis K Unavailable Nikhil PROCTOLOGIST, Yvrose Unavailable Dr. Yamilet Rivera Referring Provider [facility] Primary Care Pro vider [facility] Referring Provid er ISAI Ferro Attending Provider [phone] Attending Provider [phone] ISAI Ricci Attending Provider [phone] ISAI Ricci Referring Provider [phone] [facility] Primary Care Pro vider MD [address] Attending Provider [phone] [facility] Referring Provid er Nikhil PROCTOLOGIST, YASMANI-C Yvrose Referring Provider Fer PROCTOLOGIST, PROCTOLOGIST-C Juju Attending Provider CAROLIN DUMONT Attending Unavailable NUVIA RODRIGUEZ, CAROLIN Referring Unavailable OTILIA DISLA Attending Unavailable OTILIA DISLA Attending Unavailable YVROSE CARREON Referring Unavailable CAROLIN DUMONT Attending Unavailable OTILIA DISLA Referring Unavailable NUVIA RODRIGUEZ, CAROLIN Attending Unavailable NUVIA RODRIGUEZ, CAROLIN Referring Unavailable NUVIA RODRIGUEZ, CAROLIN Attending Unavailable NUVIA RODRIGUEZ CAROLIN Referring Unavailable Nikhil GRUBER, YASMANI-C Yvrose Primary Care Provider Dr. Jerry Boggs Attending Provider [phone] Yamilet Rivera Referring Provider [facility] Referring Provid er MD [address] Attending Provider Nikhil GRUBER NP-Shannan Frances Referring Provider [facility] Primary Care Pro vider GAMALIEL Monroe NPC Juju Attending Provider Dr. Guanakito Siu Attending Provider [phone] Attending Provider [facility] [place] Referring Provid er [facility] [place] Primary Care Pro vider [facility] [place] Referring Provid er MD [address] Attending Provider ISAI Du Attending Provider [facility] Primary Care Pro vider [facility] Referring Provid er MD [address] Attending Provider [facility] [place] Primary Care Pro vider [facility] [place] Referring Provid er MD [address] Attending Provider Dr. Guanakito Siu Attending Provider MD [address] Referring Provider MD [address] Other Provider MD [address] Admit Provider Dr. Zaheer Pemberton Attending Provider Dr. Ingris Sam Other Provider Dr. Ingris Sam Attending Provider Nikhil PROCTOLOGIST, Yvrose Unavailable Nikhil PROCTOLOGIST-C, Yvrose Primary Care Provider Nikhil PROCTOLOGIST-C, Yvrose Referring Provider Nicolas Ferro Attending Provider Nicolas Ferro Referring Provider [address] MD Attending Provider Dr. Guanakito Siu MD Attending Provider Munir PROCTOLOGIST-CChristiana Attending Provider Nikhil PROCTOLOGIST-C, [place] Primary Care Provider Nikhil PROCTOLOGIST-C, Yvrose Referring Provider Juan Diego WIN, Dr. Sandhu Attending Provider Juan Diego WIN, Dr. Sandhu Referring Provider Amaral PROCTOLOGIST-C, Christiana Referring Provider Amaral PROCTOLOGIST-C, Christiana Referring Provider Amaral PROCTOLOGIST-C, Christiana Referring Provider Nikhil PROCTOLOGIST-C, Yvrose Attending Provider Jose Elias WIN, Dr. Agosto Attending Provider Nikhil PROCTOLOGIST-C, Yv[place] Primary Care Provider Nikhil PROCTOLOGIST-C, Yvrose Referring Provider Sherron WIN, Dr. Calabrese Attending Provider Jose Elias WIN, Dr. Agosto Attending Provider Nikhil PROCTOLOGIST-C, [place] Primary Care Physician Juan Diego WIN, Dr. Sandhu Attending Physician Nikhil PROCTOLOGIST-C, Yvrose Referring Provider Munir PROCTOLOGIST-C, Christiana Attending Physician Sherron WIN, Dr. Calabrese Attending Physician Jose Elias WIN, Dr. Agosto Attending Physician Nikhil PROCTOLOGIST-C, Yvrose Attending Physician Beam PROCTOLOGIST-C, Zebulun Attending Physician Beam PROCTOLOGIST-C, Zeyan Referring Provider Miryam Bautista Attending Physician [facility], Alayna Smart Referring Provid er Roof PROCTOLOGIST-C, Riley Rodriguez Attending Physician Nikhil PROCTOLOGIST-C, Yv[place] Primary Care Physician Nikhil PROCTOLOGIST-C, Yvrose Referring Provider Amaral PROCTOLOGIST-C, Christiana Attending Physician Amaral PROCTOLOGIST-C, Christiana Referring Provider Kajal Nunez LPN Attending Physician Unava ilable Nikhil PROCTOLOGIST-C, [facility] Nurse Practitioner Lita WIN, Dr. Ray Attending Physician Nikhil PROCTOLOGIST-C, [facility] Primary Care Physician [phone] Jose Elias WIN, Dr. Agosto Attending Physician [facility], [facility] Primary Care Unavailabl e Kajal Nunez Attending Unavailable [facility], [facility] Primary Care Unavailabl e Nicolas Ferro Attending Unavailable Nicolas Ferro Referring Unavailable [facility], [facility] Referring Unavailabl e Nikhil VS, [facility] Primary Care Unavailabl e Christiana Amaral Attending Unavailable [facility], [facility] Referring Unavailabl e Nikhil [facility], [facility] Primary Care Unavailabl e Christiana Amaral Attending Unavailable [facility], [facility] Primary Care Unavailabl e Beam VSC, Zebulun Attending Unavailable Beam VSC, Zebulun Referring Unavailable [facility], [facility] Primary Care Unavailabl e Christiana Amaral Referring Unavailable Christiana Amaral Attending Unavailable [facility], [facility] Primary Care Unavailabl e Beam VSC, Zebulun Referring Unavailable Beam VSC, Zeyan Attending Unavailable [facility], [facility] Primary Care Unavailabl e Christiana Amaral Referring Unavailable Christiana Amaral Attending Unavailable [facility], [facility] Primary Care Unavailabl e S[address] Street Attending Unavailable [facility] Referring Unavailable [facility], [facility] Unavailabl e Guanakito Siu Attending [facility] Care Unavailable [facility] Referring Unavailable Joseph GRUBER, Riley Rodriguez Attending Unavailable Nicolas Ferro Attending Unavailable [facility], [facility] Care Unavailable Nicolas Ferro Referring Unavailable [facility], [facility] Unavailabl e Beam VSC, Zebulun Referring Unavailable Beam VSC, Zebubrettn Attending Unavailable [facility], [facility] Primary Care Unavailabl e Christiana Amaral Attending Unavailable Christiana Amaral Referring Unavailable Nikhil VS, [facility] Primary Care Unavailabl e Christiana Amaral Referring Unavailable Christiana Amaral Attending Unavailable [facility], [facility] Primary Care Unavailabl e Christiana Amaral Referring Unavailable Christiana Amaral Attending Unavailable Nikhil VSC, [facility] Primary Care Unavailabl e Beam VSC, Tacho Referring Unavailable Beam VSC, Tacho Attending Unavailable Nikhil VSC, [facility] Primary Care Unavailabl e Nikhil VSC, [facility] Referring Unavailabl e Christiana Amaral Attending Unavailable Nikhil VSC, [facility] Primary Care Unavailabl e Guanakito Siu Attending Unavailable Nikhil VSC, Yvrose Referring Unavailabl e Nikhil VSC, [facility] Primary Care Unavailabl e Christiana Amaral Attending Unavailable Nikhil VSC, Yvrose Referring Unavailabl e Nikhil VSC, [facility] Primary Care Unavailabl e Christiana Amaral Attending Unavailable Nikhil VSC, [facility] Referring Unavailabl e Nikhil VSC, [facility] Primary Care Unavailabl e Nikhil VSC, Yvrose Attending Unavailabl e Nikhil VSC, [facility] Primary Care Unavailabl e Edson Adamson Attending Unavailable Edson Adamson Referring Unavailable Nikhil VSC, [facility] Referring Unavailabl e Nikhil VSC, [facility] Primary Care Unavailabl Silverio Olivares Attending Unavailable Nikhil VSC, [facility] Primary Care Unavailabl e Beam VSC, Tacho Attending Unavailable Nicolas Ferro Attending Unavailable [facility] Referring Unavailable [facility] Primary Care Unavailable [facility], [facility] Referring Unavailabl e Nikhil VSC, [facility] Primary Care Unavailabl Triny Fields Attending Unavailable [facility], [facility] Referring Unavailable Roof PROCTOLOGIST, Riley Rodriguez Attending Unavailable Nikhil [facility], [facility] Referring Unavailabl e Nikhil VSC, [facility] Primary Care Unavailabl e Christiana Amaral Attending Unavailable Nikhil VSC, [facility] Primary Care Unavailabl Nicolas Johnson Attending Unavailable Nikhil VS, Yvrose Referring Unavailabl e Nikhil VSC, [facility] Primary Care Unavailabl e Nikhil VSC, [facility] Referring Unavailabl e Christiana Amaral Attending Unavailable Nikhil VSC, Yvrose Referring Unavailabl e Nikhil VSC, [facility] Consulting Unavailabl e Nikhil VSC, [facility] Primary Care Unavailabl e Flor London Attending Unavailable Nikhil VSC, [facility] Primary Care UnavailMiryam Do Attending Unavailable [facility], [facility] Primary Care UnavailGuanakito Macias Attending Unavailable [facility], Yvrose Referring Count includes the [facility], Yvrose Attending Count includes the [facility], Y[facility] Primary Care [facility] e [facility], Y[facility] Primary Care [facility] arnaldo [facility], Tacho Attending Unavailable Allergies Allergy Classification Reported Allergen(s) Allergy Type Date of Onset Reaction(s) Facility (20 sources) isoniazid; Translations: [ISONIAZID] Drug Allergy 4 Other: See Comments [facility] Comment on above: chemically induced h epatitis (1 source) isoniazid Drug Allergy 5 [facility] Repository Medications Current Medications Medication Drug Class(es) Dates Sig (Normalized) Sig (Original) 8 hr acetaminophen 650 mg extended release oral tablet (5 sources) Start: 12-29-2024 take 1 tablet by mouth every twelve hours Start: 12-29-2024 take 1 tablet by mouth every t welve hours [id number] 200 actuat albuterol 0.09 mg/actuat metered dose inhaler (8 sources) beta2-Adrenergic Agonist Start: 04-18-2016 take 2 puff(s) by inhalation every four hours as needed for cough albuterol HFA (VENTOLIN HFA) 90 mcg/actuation inhaler Inhale 2 Puffs as instructed every 4 hours as needed (FOR COUGH OR WHEEZE). 3 Inhaler 1 04/18/2016 Active Comment on above: Inhale 2 Puffs as in structed every 4 hours as needed (FOR COUGH OR WHEEZE). atorvastatin 10 mg oral tablet (20 sources) HMG-CoA Reductase Inhibitor Start: 01-08-2025 take 1 tablet by mouth once daily in the evening Start: 09-27-2021 End: 01-08-2025 take 1 tablet by mouth at bedtime Atorvastatin 20 mg tablet Discontinued 20 mg PO AT BEDTIME 90 3 October 31, 2023 2:19pm January 08, 2025 9:55am B Complex-Vitamin C-Folic Acid (12 sources) Start: 04-14-2020 take 0.8 mg by mouth once daily B Complex-Vitamin C-Folic Acid Active 0.8 MG PO DAILY April 14, 2020 8:37pm Start: 04-14-2020 take 0.8 mg by mouth once daily B Complex-Vitamin C-Folic Acid Active 0.8 MG PO DAILY April 14, 2020 12:00am Start: 04-14-2020 take 0.8 mg by mouth once daily B Complex-Vitamin C-Folic Acid Active 0.8 MG PO DAILY April 14, 2020 1:00am Bacillus Coagulans (Probioti c (B. Coagulans)) 10 billion cell capsule,delayed release(DR/EC) (14 sources) Start: 09-18-2024 Bacillus Coagu lans (Probiotic (B. Coagulans)) 10 billion cell capsule,delayed release(DR/EC) Active NMA PO September 18, 2024 12:00am Complies with drug therapy Start: 09-18-2024 Start: 09-18-2024 Bacillus Coagu lans (Probiotic (B. Coagulans)) 10 billion cell capsule,delayed release(DR/EC) Active NMA PO September 18, 2024 12:00am Lunzvujosy-Staatuxe-Ewzgzxda ol (20 sources) Corticosteroid, beta2-Adrenergic Agonist Start: 07-04-2023 Uviguxirpk-Nlcppjyq-Bevrkkzv ol (Breztri Aerosphere) 160-9-4.8 mcg/actuation HFA aerosol inhaler Active 2 NMA INHALATION TWICE A DAY July 04, 2023 12:00am Complies with drug therapy Start: 07-04-2023 Start: 07-04-2023 Budesonide-Gly copyr-Formoterol (Breztri Aerosphere) 160-9-4.8 mcg/actuation HFA aerosol inhaler Active 2 NMA INHALATION TWICE A DAY July 04, 2023 12:00am Start: 07-04-2023 Budesonide-Gly copyr-Formoterol [Budesonide 160 Mcg-Glycopyr 9 Mcg-Formot 4.8 Mcg/Actuation Hfa Inhaler] (Budesonide 160 Mcg-Glycopyr 9 Mcg-Formot 4.8 ) 160-9-4.8 mcg/actuation HFA aerosol inhaler Active 2 INH INHALATION TWICE A DAY July 04, 2023 12:00am 24 hr buPROPion hydrochloride 150 mg extended release oral tablet (20 sources) Aminoketone Start: 10-01-2022 buPROPion XL ( WELLBUTRIN XL) 150 mg 24 hr tablet 10/01/2022 Active Start: 09-20-2022 take 1 tablet by mouth once da tricia Nrvpdwwqu-Rqjbuwfs-Fgv-Hyalu r (Move Free Ultra Triple Action) 40-5-3.3 mg tablet (20 sources) Start: 07-04-2023 Argiqkvjl-Npbakmer-Lrr-Hyalu r (Move Free Ultra Triple Action) 40-5-3.3 mg tablet Active 1 {tbl} PO AT BEDTIME July 04, 2023 12:00am Complies with drug therapy Start: 07-04-2023 Start: 07-04-2023 Cartilage-Cookie bnig-Bej-Qorhro (Move Free Ultra Triple Action) 40-5-3.3 mg tablet Active 1 {tbl} PO AT BEDTIME July 04, 2023 12:00am Start: 07-04-2023 take 1 tablet by mouth at bedt dona Bqrrkhqsk-Ugvnrblj-Lax-Hyalur (Move Free Ultra Triple Action) 40-5-3.3 mg tablet Active 1 TABLET PO AT BEDTIME July 04, 2023 12:00am Compression Socks, Large (15 sources) Start: 09-01-2022 Compression So cks, Large Active 0 .Route 2 August 31, 2022 11:00pm As directed Start: 09-01-2022 Compression So cks, Large Active 0 .Route 2 September 01, 2022 12:00am As directed Start: 09-01-2022 Compression So cks, Large Active 0 .ROUTE 2 September 01, 2022 12:00am As directed diclofenac sodium 0.01 mg/mg topical gel (2 sources) Nonsteroidal Anti-inflammatory Drug Start: 01-08-2025 apply 2 g topically once Dulaglutide (20 sources) GLP-1 Receptor Agonist Start: 01-13-2024 Dulaglutide (Trulicity) 3 mg/0.5 mL pen injector Active 3 mg SC EVERY WEEK January 13, 2024 12:00am Complies with drug therapy Start: 01-13-2024 Start: 01-13-2024 Dulaglutide (T rulicity) 3 mg/0.5 mL pen injector Active 3 mg SC EVERY WEEK January 13, 2024 12:00am Start: 2023 End: 01-13-2024 Dulaglutide (Trulicity) 0.75 mg/0.5 mL pen injector Discontinued 3 mg SC EVERY WEEK 2023 1:00am January 13, 2024 4:41pm fluticasone propionate 0.05 mg/actuat metered dose nasal spray (20 sources) Corticosteroid Start: 12-29-2024 take 50 ug nasal rou te once daily Start: 12-29-2024 take 50 ug nasal rou te once daily Start: 08-03-2021 End: 09-18-2024 Fluticasone Propionate 50 mcg/actuation spray,suspension Discontinued 2 NMA INTRANASAL DAILY August 03, 2021 12:00am September 18, 2024 9:50am Wheezing Start: 08-03-2021 Fluticasone Pr opionate Active 2 SPRAY INTRANASAL DAILY August 03, 2021 12:00am Start: 08-03-2021 Fluticasone Pr opionate Active 2 SPRAY INTRANASAL NEEDED August 02, 2021 11:00pm take 1 spray(s) nasa l route once daily fluticasone (FLONASE) 50 mcg/actuation nasal spray Use 1 [facility] in each nostril once daily. Active Comment on above: Use 1 [facility] in each nostril once daily. 60 actuat formoterol fumarate 0.005 mg/actuat / mometasone furoate 0.2 mg/actuat metered dose inhaler (20 sources) Corticosteroid, beta2-Adrenergic Agonist Start: 11-06-2022 DULERA 200-5 mcg/actuation inhaler 11/06/2022 Active Start: 08-03-2021 Start: 08-03-2021 Mometasone-For moterol (Dulera) 200-5 mcg/actuation HFA aerosol inhaler Active 2 INH INHALATION NEEDED August 03, 2021 12:00am gabapentin 300 mg oral capsule (13 sources) Anti-epileptic Agent Start: 10-09-2024 End: 01-07-2025 take 1 capsule by mouth twice daily glimepiride 2 mg oral tablet (20 sources) Sulfonylurea Start: 05-24-2022 glimepiride (AMARYL) 2 mg tablet 11/06/2022 Active hydroCHLOROthiazide 25 mg oral tablet (20 sources) Thiazide Diuretic Start: 01-04-2023 take 1 tablet by mouth once daily Start: 04-14-2020 take 25 mg by mouth once daily Hydrochlorothiazide Active 25 MG PO DAILY April 14, 2020 1:00am Start: 10-19-2016 take 1 capsule by mo [facility] once daily Hydrochlorothiazide 12.5 mg capsule Take 1 capsule by mouth once daily. 90 capsule 1 10/19/2016 Active Comment on above: Take 1 capsule by mo [facility] once daily. ketoconazole 20 mg/ml topical cream (8 sources) Azole Antifungal Start: 6 ketoconazole (NIZORAL) 2 % cream Indications: Tinea cruris Apply 1 application to affected area twice daily. 60 g 1 11/24/2015 Active Comment on above: Apply 1 application to affected area twice daily. loratadine 10 mg oral tablet (20 sources) Start: take 1 tablet by mouth once daily Start: 09-20-2022 End: 01-13-2024 take 1 capsule by mouth once daily Loratadine 10 mg Capsule Discontinued 10 mg PO DAILY September 20, 2022 12:00am January 13, 2024 4:36pm losartan potassium 100 mg oral tablet (20 sources) Angiotensin 2 Receptor Chris Start: 01-13-2024 take 1 tablet by mouth once daily Start: 04-14-2020 End: 01-13-2024 take 1 tablet by mouth once daily Losartan 50 MG tablet Discontinued 50 mg PO DAILY April 14, 2020 1:00am January 13, 2024 4:36pm take 1 tablet by livier once daily losartan (COZAAR) 25 mg tablet Take 25 mg by mouth once daily. Active Comment on above: Take 25 mg by mouth once daily. metFORMIN hydrochloride 1000 mg oral tablet (20 sources) Biguanide Start: 04-14-2020 take 1 tablet by mouth twice daily Start: 08-03-2018 take 1 tablet by livier th once daily in the evening metFORMIN (GLUCOPHAGE) 500 mg tablet Take 1 tablet by mouth once daily. In addition to 250mg in the evening 2 08/03/2018 Active take 1 tablet by livier th once daily at breakfast metFORMIN (GLUCOPHAGE) 1,000 mg tablet Take 1,000 mg by mouth daily with breakfast. Active metFORMIN (GLUCO PHAGE) 500 mg tablet Take 250 mg by mouth daily with dinner. In addition to 500mg in the morning Active Comment on above: Take 1 tablet by livier th once daily. In addition to 250mg in the evening Take 250 mg by mouth daily with dinner. In addition to 500mg in the morning Take 1,000 mg by livier th daily with breakfast. Mometasone-Formoterol 200-5 mcg/actuation HFA aerosol inhaler (12 sources) Start: 08-03-2021 Mometasone-Formoterol 200-5 mcg/actuation HFA aerosol inhaler Active 2 NMA INHALATION NEEDED August 03, 2021 12:00am Wheezing Start: 08-03-2021 Mometasone-For moterol 200-5 mcg/actuation HFA aerosol inhaler Active 2 NMA INHALATION NEEDED August 03, 2021 12:00am montelukast 10 mg oral tablet (20 sources) Leukotriene Receptor Antagonist Start: 07-31-2018 take 1 tablet by mouth once daily Comment on above: Take 1 tablet by livier th once daily. Multivitamin preparation (20 sources) Start: 04-14-2020 take 1 tablet by mouth once daily Multivitamin Active 1 TABLET PO DAILY April 14, 2020 10:02pm Start: 04-14-2020 End: 07-04-2023 take 1 tablet by mouth once daily Multivitamin Discontinued 1 TABLET PO DAILY April 14, 2020 1:00am July 04, 2023 8:45am Start: 04-14-2020 take 1 tablet by livier th once daily Multivitamin Active 1 TABLET PO DAILY April 14, 2020 12:00am Start: 04-14-2020 take 1 tablet by livier th once daily Multivitamin Active 1 TABLET PO DAILY April 14, 2020 1:00am multivitamin tablet (8 sources) take 1 tablet by livier th once daily multivitamin tablet Take 1 tablet by mouth once daily. Active take 1 tablet by mouth once aditi y multivitamin tablet Take 1 tablet by mouth once daily. 0 Active Comment on above: Take 1 tablet by livier th once daily. Multivitamin tablet (5 sources) Start: 12-29-2024 Multivitamin tablet Active 1 {tbl} PO EVERY MORNING December 29, 2024 12:00am Complies with drug therapy Start: 12-29-2024 omeprazole 20 mg delayed release oral capsule (20 sources) Proton Pump Inhibitor Start: 12-29-2024 take 1 capsule by mouth once daily Start: 12-29-2024 take 1 capsule by mo uth once daily Start: 07-31-2018 End: 10-16-2024 take 1 capsule by mouth at bedtime Omeprazole 20 MG capsule Discontinued 20 mg PO AT BEDTIME April 14, 2020 1:00am October 16, 2024 9:15am GERD Comment on above: Take 1 capsule by mo [facility] once daily. predniSONE 10 mg oral tablet (20 sources) Start: 01-08-2025 Start: 2024 End: 03-28-2024 take 2 tablets by mouth once daily Prednisone 20 mg tablet Discontinued 40 mg PO daily 10 5 0 2024 1:00am March 27, 2024 1:00am March 28, 2024 1:13am Start: 08-18-2022 End: 09-14-2022 Prednisone 20 mg tablet Disc ontinued NMA PO August 18, 2022 12:00am September 14, 2022 3:11pm Start: 08-18-2022 End: 09-14-2022 Prednisone Discontinued EACH PO August 18, 2022 12:00am September 14, 2022 3:11pm sertraline 100 mg oral tablet (20 sources) Serotonin Reuptake Inhibitor Start: 10-04-2022 sertraline (ZOLOFT) 100 mg tablet 10/04/2022 Active Start: 04-14-2020 End: 08-22-2024 Sertraline 100 MG tablet Discontinued 150 mg PO DAILY April 14, 2020 1:00am August 22, 2024 10:24am Start: 04-14-2020 take 150 mg by mouth once aditi y Sertraline Active 150 MG PO DAILY April 14, 2020 1:00am Start: 04-14-2020 take 100 mg by mouth once aditi y Sertraline Active 100 MG PO DAILY April 14, 2020 1:00am Start: 07-31-2018 take 1 tablet by livier once daily sertraline (ZOLOFT) 50 mg tablet Take 1 tablet by mouth once daily. 2 07/31/2018 Active Comment on above: Take 1 tablet by livier once daily. sulfamethoxazole 800 mg / trimethoprim 160 mg oral tablet (20 sources) Dihydrofolate Reductase Inhibitor Antibacterial, Sulfonamide Antimicrobial Start: take 1 tablet by mouth twice daily Sulfamethoxazo le-Trimethopri m (Bactrim Ds) 800-160 mg tablet Active 1 TABLET PO TWICE A DAY 14 7 August 28, 2022 12:00am Start: 03-12-2020 End: 03-19-2020 Sulfamethoxazole-Trimethopri m 1 TABLET tablet Discontinued 2 {tbl} PO TWICE A DAY 28 7 0 March 12, 2020 1:00am March 18, 2020 1:00am March 19, 2020 1:03am Start: 03-12-2020 End: 03-19-2020 take 2 tablets by mouth twice daily Sulfamethoxazole-Trimethoprim Discontinu ed 2 TABLET PO TWICE A DAY 28 7 March 12, 2020 1:00am March 19, 2020 1:03am traZODone hydrochloride 50 mg oral tablet (20 sources) Serotonin Reuptake Inhibitor Start: 09-20-2022 take 1 tablet by mouth at bedtime ubidecarenone 10 mg oral capsule (8 sources) take 1 capsule by mouth once daily ubidecarenone Q-10 (COENZYME Q-10) 10 mg cap Take 10 mg by mouth once daily. Active Comment on above: Take 10 mg by mouth once daily. valACYclovir 500 mg oral tablet (2 sources) Herpesvirus Nucleoside Analog DNA Polymerase Inhibitor, Herpes Simplex Virus Nucleoside Analog DNA Polymerase Inhibitor, Herpes Zoster Virus Nucleoside Analog DNA Polymerase Inhibitor Start: 01-08-2025 take 1 tablet by mouth once daily Vibegron (14 sources) Start: 09-18-2024 take 1 tablet by mouth once daily Vibegron (Gemtesa) 75 mg tablet Active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 Absolute lymphocyte countOrd ered By: Tacho Lai on 01-05-2025 Lymphocytes Auto (Unsp spec) [#/Vol] 1.79 10*3/uL 0.83-4.51 [facility] Absolute neutrophil countOrd ered By: Tacho Lai on 01-05-2025 Neutrophils (Bld) [#/Vol] 8.0 10*3/uL High 2.0-7.7 [facility] Amylaseon 01-05-2025 LEE ANN 53 U/L Normal 28-100 [facility] Comment on above: Performed By: #### L 100.0100, L503.6550, L501.2450, L503.6030, L500.4050, L501.2400 ####[facility] [address] [place], [address] Anion gap in Serum or Plasma Ordered By: Zebulun Beam on 01-05-2025 Anion gap [Moles/Vol] 15 mmol/L 5-15 [facility] Automated lymphocyte count a s percentage of total leukocytesOrdered By: Zebulun Beam on 01-05-2025 Lymphocytes/100 WBC Auto (Unsp spec) 17.1 % Low 19-41 [facility] BUN/creatinine ratioOrdered By: Zebulun Beam on 01-05-2025 Urea nitrogen/Creatinine [Mass ratio] 22.8 mg/mg High 10-20 [facility] Basophil percentageOrdered B y: Zebulun Beam on 01-05-2025 Basophils/100 WBC (Bld) 0.4 % 0-1 [facility] Bilirubin, totalOrdered By: Zebulun Beam on 01-05-2025 Bilirubin [Mass/Vol] 0.20 mg/dL 0.00-1.30 [facility] CBC W/Diff, Automatedon 0 Absolute Lymph 1.79 X10 3/uL Normal 0.83-4.51 [facility] Comment on above: Performed By: #### L 100.0100, L503.6550, L501.2450, L503.6030, L500.4050, L501.2400 #### [facility] [address] [place], [address] Absolute Neut 8.0 X10 3/uL High 2.0-7.7 [facility] Comment on above: Performed By: #### L 100.0100, L503.6550, L501.2450, L503.6030, L500.4050, L501.2400 #### [facility] [address] [place], [address] Basophils/100 WBC (Bld) 0.4 % Normal 0-1 [facility] Comment on above: Performed By: #### L 100.0100, L503.6550, L501.2450, L503.6030, L500.4050, L501.2400 #### [facility] [address] [place], [address] Eosinophils/100 WBC (Bld) 0.8 % Normal 0-5 [facility] Comment on above: Performed By: #### L 100.0100, L503.6550, L501.2450, L503.6030, L500.4050, L501.2400 #### [facility] [address] [place], [address] Erythrocyte distribution width (RBC) [Ratio] 15.3 % High 11.6-14.6 [facility] Comment on above: Performed By: #### L 100.0100, L503.6550, L501.2450, L503.6030, L500.4050, L501.2400 #### [facility] [address] [place], [address] Hematocrit (Bld) [Volume fraction] 33.9 % Low 37-47 [facility] Comment on above: Performed By: #### L 100.0100, L503.6550, L501.2450, L503.6030, L500.4050, L501.2400 #### [facility] [address] [place], [address] Hemoglobin (Bld) [Mass/Vol] 10.6 g/dL Low 12.0-15.0 [facility] Comment on above: Performed By: #### L 100.0100, L503.6550, L501.2450, L503.6030, L500.4050, L501.2400 #### [facility] [address] [place], [address] IG% 0.300 Normal 0.0-0.9 [facility] Comment on above: Result Comment: IG% - Immature Granulocytes (promyelocytes, myelocytes and metamyelocytes) > 1% indicates that a LEFT SHIFT is Present. Performed By: #### L 100.0100, L503.6550, L501.2450, L503.6030, L500.4050, L501.2400 #### [facility] [address] [place], [address] Lymphocytes/100 WBC (Bld) 17.1 % Low 19-41 [facility] Comment on above: Performed By: #### L 100.0100, L503.6550, L501.2450, L503.6030, L500.4050, L501.2400 #### [facility] [address] [place], [address] MCH (RBC) [Entitic mass] 24.1 pg Low 27.0-32.0 [facility] Comment on above: Performed By: #### L 100.0100, L503.6550, L501.2450, L503.6030, L500.4050, L501.2400 #### [facility] [address] [place], [address] MCHC (RBC) [Mass/Vol] 31.3 g/dL Low 32-36 [facility] Comment on above: Performed By: #### L 100.0100, L503.6550, L501.2450, L503.6030, L500.4050, L501.2400 #### [facility] [address] [place], [address] MCV (RBC) [Entitic vol] 77.2 fL Low 81-99 [facility] Comment on above: Performed By: #### L 100.0100, L503.6550, L501.2450, L503.6030, L500.4050, L501.2400 #### [facility] [address] [place], [address] Monocytes/100 WBC (Bld) 5.3 % Normal 0-10 [facility] Comment on above: Performed By: #### L 100.0100, L503.6550, L501.2450, L503.6030, L500.4050, L501.2400 #### [facility] [address] [place], [address] Neutrophils/100 WBC (Bld) 76.1 % High 47-70 [facility] Comment on above: Performed By: #### L 100.0100, L503.6550, L501.2450, L503.6030, L500.4050, L501.2400 #### [facility] [address] [place], [address] Nucleated RBC (Bld) [#/Vol] 0 10*3/uL Normal 0-5 [facility] Comment on above: Performed By: #### L 100.0100, L503.6550, L501.2450, L503.6030, L500.4050, L501.2400 #### [facility] [address] [place], [address] Platelet mean volume (Bld) [Entitic vol] 9.6 fL Normal 6.2-12.0 [facility] Comment on above: Performed By: #### L 100.0100, L503.6550, L501.2450, L503.6030, L500.4050, L501.2400 #### [facility] [address] [place], [address] Platelets (Bld) [#/Vol] 440 10*3/uL Normal 150-450 [facility] Comment on above: Performed By: #### L 100.0100, L503.6550, L501.2450, L503.6030, L500.4050, L501.2400 #### [facility] [address] [place], [address] RBC (Bld) [#/Vol] 4.39 10*6/uL Normal 4.2-5.4 [facility] Comment on above: Performed By: #### L 100.0100, L503.6550, L501.2450, L503.6030, L500.4050, L501.2400 #### [facility] [address] [place], [address] RDW SD 42.7 fl Normal 35.1-43.9 [facility] Comment on above: Performed By: #### L 100.0100, L503.6550, L501.2450, L503.6030, L500.4050, L501.2400 #### [facility] [address] [place], [place], [phone] (639) WBC (Bld) [#/Vol] 10.5 10*3/uL Normal 4.4-11.0 [facility] Comment on above: Performed By: #### L 100.0100, L503.6550, L501.2450, L503.6030, L500.4050, L501.2400 #### [facility] [address] [place], [place], [phone] (860) Carbon dioxide, total [Moles /volume] in Central venous bloodOrdered By: Tacho Lai on 01-05-2025 CO2 [Moles/Vol] 22.3 mmol/L 21.0-32.0 [facility] Chloride assayOrdered By: Sebastien Lai on 01-05-2025 Chloride [Moles/Vol] 97 mmol/L Low 98-108 [facility] Comprehensive Metabolic Prof ilon 01-05-2025 Albumin [Mass/Vol] 4.1 g/dL Normal 3.4-4.8 [facility] Comment on above: Performed By: #### L 100.0100, L503.6550, L501.2450, L503.6030, L500.4050, L501.2400 ####[facility] [address] [place], [address] Albumin/Globulin [Mass ratio] 1.8 {ratio} Normal 0.9-2.4 [facility] Comment on above: Performed By: #### L 100.0100, L503.6550, L501.2450, L503.6030, L500.4050, L501.2400 ####[facility] [address] [place], [address] ALK PHOS 96 U/L Normal 35-104 [facility] Comment on above: Performed By: #### L 100.0100, L503.6550, L501.2450, L503.6030, L500.4050, L501.2400 ####[facility] [address] [place], [address] ALT [Catalytic activity/Vol] 17 U/L Normal <=34 [facility] Comment on above: Performed By: #### L 100.0100, L503.6550, L501.2450, L503.6030, L500.4050, L501.2400 ####[facility] [address] [place], [address] AST [Catalytic activity/Vol] 15 U/L Normal <=31 [facility] Comment on above: Performed By: #### L 100.0100, L503.6550, L501.2450, L503.6030, L500.4050, L501.2400 ####[facility] [address] [place], [address] Bilirubin [Mass/Vol] 0.20 mg/dL Normal 0.00-1.30 [facility] Comment on above: Performed By: #### L 100.0100, L503.6550, L501.2450, L503.6030, L500.4050, L501.2400 ####[facility] [address] [place], [address] BUN/CRE 22.8 RATIO High 10-20 [facility] Comment on above: Performed By: #### L 100.0100, L503.6550, L501.2450, L503.6030, L500.4050, L501.2400 ####[facility] [address] [place], [address] Calcium [Mass/Vol] 9.4 mg/dL Normal 7.6-11.0 [facility] Comment on above: Performed By: #### L 100.0100, L503.6550, L501.2450, L503.6030, L500.4050, L501.2400 ####[facility] [address] [place], [address] Chloride [Moles/Vol] 97 mmol/L Low 98-108 [facility] Comment on above: Performed By: #### L 100.0100, L503.6550, L501.2450, L503.6030, L500.4050, L501.2400 ####[facility] [address] [place], [address] CO2 [Moles/Vol] 22.3 mmol/L Normal 21.0-32.0 [facility] Comment on above: Performed By: #### L 100.0100, L503.6550, L501.2450, L503.6030, L500.4050, L501.2400 ####[facility] [address] [place], [address] Creatinine [Mass/Vol] 0.81 mg/dL Normal 0.70-1.20 [facility] Comment on above: Performed By: #### L 100.0100, L503.6550, L501.2450, L503.6030, L500.4050, L501.2400 ####[facility] [address] [place], [address] GAP 15 Normal 5-15 [facility] Comment on above: Performed By: #### L 100.0100, L503.6550, L501.2450, L503.6030, L500.4050, L501.2400 ####[facility] [address] [place], [address] GFR/1.73 sq M.predicted among non-blacks MDRD (S/P/Bld) [Vol rate/Area] 80 mL/min/{1.73_m2} Normal >60 [facility] Comment on above: Result Comment: mL/m in/1.73m2 CKD-EPI Creatinine Equation (2020) Performed By: #### L 100.0100, L503.6550, L501.2450, L503.6030, L500.4050, L501.2400 ####[facility] [address] [place], [address] Globulin (S) [Mass/Vol] 2.3 g/dL Normal 2.2-4.2 [facility] Comment on above: Performed By: #### L 100.0100, L503.6550, L501.2450, L503.6030, L500.4050, L501.2400 ####[facility] [address] [place], [address] Glucose [Mass/Vol] 209 mg/dL High 70-99 [facility] Comment on above: Performed By: #### L 100.0100, L503.6550, L501.2450, L503.6030, L500.4050, L501.2400 ####[facility] [address] [place], [address] Potassium [Moles/Vol] 4.1 mmol/L Normal 3.3-5.1 [facility] Comment on above: Performed By: #### L 100.0100, L503.6550, L501.2450, L503.6030, L500.4050, L501.2400 ####[facility] [address] [place], [address] Sodium [Moles/Vol] 135 mmol/L Normal 133-145 [facility] Comment on above: Performed By: #### L 100.0100, L503.6550, L501.2450, L503.6030, L500.4050, L501.2400 ####[facility] [address] [place], [address] T PROT 6.3 g/dL Normal 5.9-8.4 [facility] Comment on above: Performed By: #### L 100.0100, L503.6550, L501.2450, L503.6030, L500.4050, L501.2400 ####[facility] [address] [place], [address] Urea nitrogen [Mass/Vol] 19 mg/dL Normal 4-19 [facility] Comment on above: Performed By: #### L 100.0100, L503.6550, L501.2450, L503.6030, L500.4050, L501.2400 ####[facility] [address] [place], [address] Eosinophil percentageOrdered By: Jose Martinn Beam on 01-05-2025 Eosinophils/100 WBC (Bld) 0.8 % 0-5 [facility] Erythrocyte distribution wid th ratioOrdered By: Zeyolandan Beam on 01-05-2025 Erythrocyte distribution width (RBC) [Ratio] 15.3 % High 11.6-14.6 [facility] Erythrocyte distribution wid th standard deviationOrdered By: yolandan Beam on 01-05-2025 Erythrocyte distribution width (RBC) [Ratio] 42.7 fl 35.1-43.9 [facility] Glomerular filtration rate ( GFR) estimation/1.73 sq m using serum, plasma, or whole bOrdered By: Tacho Lai on 01-05-2025 GFR/1.73 sq M.predicted among non-blacks MDRD (S/P/Bld) [Vol rate/Area] 80 mL/min/{1.73_m2} >60 [facility] Comment on above: mL/min/1.73m2 CKD-EP I Creatinine Equation (2020) Hematocrit Auto (Bld) [Volum e fraction]Ordered By: Tacho Lai on 01-05-2025 Hematocrit (Bld) [Volume fraction] 33.9 % Low 37-47 [facility] Hemoglobin measurementOrdere d By: Jose Martinn Joelle on 01-05-2025 Hemoglobin (Bld) [Mass/Vol] 10.6 g/dL Low 12.0-15.0 [facility] Immature granulocytes/100 WB C Auto (Bld)Ordered By: yan Lai on 01-05-2025 Immature granulocytes/100 WBC (Bld) 0.300 % 0.0-0.9 [facility] Comment on above: IG% - Immature Granu locytes (promyelocytes, myelocytes and metamyelocytes) > 1% indicates that a LEFT SHIFT is Present. Iron measurement (mass/mass) Ordered By: yan Lai on 01-05-2025 Iron (Unsp spec) [Mass/Mass] 28 ug/dL Low 50-170 [facility] Laboratory - Chemistry and C hemistry - challengeOrdered By: Tacho Lai on 01-05-2025 AST [Catalytic activity/Vol] 15 U/L <32 [facility] Lipaseon 01-05-2025 Lipase [Catalytic activity/Vol] 48 U/L Normal 13-75 [facility] Comment on above: Result Comment: Aparna dougherty note: LIPASE revised reference range effective 22. New Lipase methodology. Expected to produce lower values than the previous assay method. NEW Reference Range: 13 - 75 U/L Performed By: #### L 100.0100, L503.6550, L501.2450, L503.6030, L500.4050, L501.2400 ####[facility] [address] [place], [address] Lipase measurementOrdered By : yan Lai on 01-05-2025 Lipase [Catalytic activity/Vol] 48 U/L 13-75 [facility] Comment on above: Please note:LIPASE r evised reference range effective 22. New Lipase methodology. Expected to produce lower values than the previous assay method. NEW Reference Range: 13 - 75 U/L MCV (mean corpuscular volume ) determinationOrdered By: Naheedlun Beam on 01-05-2025 MCV (RBC) [Entitic vol] 77.2 fL Low 81-99 [facility] Mean corpuscular hemoglobin (MCH) determinationOrdered By: Zebulun Beam on 01-05-2025 MCH (RBC) [Entitic mass] 24.1 pg Low 27.0-32.0 [facility] Mean corpuscular hemoglobin concentration (MCHC) determinationOrdered By: Naheedlun Beam on 01-05-2025 MCHC (RBC) [Mass/Vol] 31.3 g/dL Low 32-36 [facility] Mean platelet volume determi nationOrdered By: Tacho Beam on 01-05-2025 Platelet mean volume (Bld) [Entitic vol] 9.6 fL 6.2-12.0 [facility] Monocyte percentageOrdered B y: Tacho Lai on 01-05-2025 Monocytes/100 WBC (Bld) 5.3 % 0-10 [facility] Neutrophil percentageOrdered By: yan Beam on 01-05-2025 Neutrophils/100 WBC (Bld) 76.1 % High 47-70 [facility] No Panel InformationOrdered By: Tacho Lai on 01-05-2025 Unsaturated Iron Binding Capacity 338 ug/dL 228-428 [facility] Nucleated red blood cell per centageOrdered By: Tacho Lai on 01-05-2025 Nucleated RBC/100 WBC (Bld) [Ratio] 0 % 0-5 [facility] Platelet countOrdered By: Sebastien Lai on 01-05-2025 Platelets (Bld) [#/Vol] 440 10*3/uL 150-450 [facility] Potassium measurement (mass/ volume)Ordered By: Tacho Lai on 01-05-2025 Potassium (Unsp spec) [Mass/Vol] 4.1 mmol/L 3.3-5.1 [facility] RBC Auto (Bld) [#/Vol]Ordere d By: Jose Martinn Beam on 01-05-2025 RBC (Bld) [#/Vol] 4.39 10*6/uL 4.2-5.4 [facility] Serum creatinine measurement (mass/volume)Ordered By: Tacho Lai on 01-05-2025 Creatinine [Mass/Vol] 0.81 mg/dL 0.70-1.20 [facility] Serum globulin measurementOr dered By: Tacho Lai on 01-05-2025 Globulin (S) [Mass/Vol] 2.3 g/dL 2.2-4.2 [facility] Serum glucose measurement (m ass/volume)Ordered By: Tacho Lai on 01-05-2025 Glucose [Mass/Vol] 209 mg/dL High 70-99 [facility] Serum or plasma alanine zhou otransferase (ALT) measurementOrdered By: Tacho Lai on 01-05-2025 ALT [Catalytic activity/Vol] 17 U/L <35 [facility] Serum or plasma albumin tracey urement (mass/volume)Ordered By: Tacho Beam on 01-05-2025 Albumin [Mass/Vol] 4.1 g/dL 3.4-4.8 [facility] Serum or plasma albumin/glob ulin mass ratioOrdered By: Tacho Beam on 01-05-2025 Albumin/Globulin [Mass ratio] 1.8 {ratio} 0.9-2.4 [facility] Serum or plasma alkaline herlinda sphatase measurementOrdered By: Jose Martinn Joelle on 01-05-2025 ALP [Catalytic activity/Vol] 96 U/L 35-104 [facility] Serum or plasma amylase tracey urement (enzymatic activity/volume)Ordered By: Jose Martinn Beam on 01-05-2025 Amylase [Catalytic activity/Vol] 53 U/L 28-100 [facility] Serum or plasma calcium tracey urement (mass/volume)Ordered By: Naheedlun Beam on 01-05-2025 Calcium [Mass/Vol] 9.4 mg/dL 7.6-11.0 [facility] Serum or plasma ferritin farhan surement (mass/volume)Ordered By: Tacho Lai on 01-05-2025 Ferritin [Mass/Vol] 11 ng/mL Low 22-378 [facility] Serum or plasma iron saturat ion measurement (mass fraction)Ordered By: Tacho Lai on 01-05-2025 Iron saturation [Mass fraction] 7.7 % Low 13-59 [facility] Serum or plasma urea nitroge n measurement (mass/volume)Ordered By: Tacho Lai on 01-05-2025 Urea nitrogen [Mass/Vol] 19 mg/dL 4-19 [facility] Sodium levelOrdered By: Naheed Lai on 01-05-2025 Sodium [Moles/Vol] 135 mmol/L 133-145 [facility] Total proteinOrdered By: Hay Lai on 01-05-2025 Protein [Mass/Vol] 6.3 g/dL 5.9-8.4 [facility] White blood cell (WBC) count Ordered By: Tacho Lai on 01-05-2025 WBC (Bld) [#/Vol] 10.5 10*3/uL 4.4-11.0 [facility] Breast imaging reportOrdered By: Christopher Romeo on 12-16-2024 Study report [facility] Imaging Services [address] [place], [place] [id number] SCRN MAMM (CAD)W/REYNA BILAT MR#: [id number] Acct: [id number] Name: DAPHNEY BENSON Rep #: [id number] : 1960 F 64 From: Bruce Romeo MD PCP: Yvrose Carreon [facility], PROCTOLOGIST-C Status: REG CLI Study:SCRN MAMM (CAD)W/REYNA BILAT Date of Exa m: 12/15/24 Exam# [id number] Ordering Dr: Hay Lai [facility] PROCTOLOGIST-C EXAM: SCRN MAMM (CAD)W/REYNA BILAT DATE: 12/15/2024 CLINICAL HISTORY: F, Age 64 y/o , SCREENING History of grandmother with breast cancer. TECHNIQUE: Procedure Code: BISMWCADBTOM Modality: MG Procedure: SCRN MAMM (CAD)W/REYNA BILAT COMPARISON: Prior exam(s) dated July 30, 2020.. FINDINGS: TISSUE DENSITY: The breasts are almost entirely fatty. Bilateral Breast Mammographic Findings: No significant masses, calcifications or other abnormalities are identified. No suspicious masses, areas of developing architectural distortion, or suspicious calcifications. There has been no significant interval change. BI/SCRN MAMM (CAD)W/REYNA BILAT IMPRESSION: Stable bilateral screening mammogram. OVERALL FINAL ASSESSMENT BI-RADS 2: BENIGN RECOMMENDATION: Routine annual follow-up in 1 Year A letter with findings and recommendations will be mailed to the patient. Reading Location: [place] [address] CC: [facility] PROCTOLOGIST-C Yvrose Carreon; Naheedbryanna [facility] PROCTOLOGIST-C Joelle ~ Motorcycle Assembler: Signed [facility] SCRN MAMM (CAD)W/REYNA BILATo n 12-15-2024 SCRN MAMM (CAD)W/REYNA BILAT [facility] Imaging Services [address] [place] [id number] SCRN MAMM (CAD)W/REYNA BILAT MR#: [id number] Acct: [id number] Name: DAPHNEY BENSON Rep #: [id number] : 1960 F 64 From: Christopher nance MD PCP: Yvrose Carreon Shannan, PROCTOLOGIST-C Status: [facility] CL Study: SCRN MAMM (CAD)W/REYNA BILAT Date of Exam: 12/01 08/24 Exam# [id number] Ordering Dr: Tacho Lai [facility] PROCTOLOGIST- C EXAM: SCRN MAMM (CAD)W/REYNA BILAT DATE: 12/15/2024 CLINICAL HISTORY: F, Age 64 y/o , SCREENING History of grandmother with breast cancer. TECHNIQUE: Procedure Code: BISMWCADBTOM Modality: MG Procedure: SCRN MAMM (CAD)W/REYNA BILAT COMPARISON: Prior exam(s) dated July 30, 2020.. FINDINGS: TISSUE DENSITY: The breasts are almost entirely fatty. Bilateral Breast Mammographic Findings: No significant masses, calcifications or other abnormalities are identified. No suspicious masses, areas of developing architectural distortion, or suspicious calcifications. There has been no significant interval change. BI/SCRN MAMM (CAD)W/REYNA BILAT IMPRESSION: Stable bilateral screening mammogram. OVERALL FINAL ASSESSMENT BI-RADS 2: BENIGN RECOMMENDATION: Routine annual follow-up in 1 Year A letter with findings and recommendations will be mailed to the patient. Reading Location: [facility] CC: [facility] PROCTOLOGIST-C Yvrose Carreon; Tacho [facility] PROCTOLOGIST-C Joelle Motorcycle Assembler: Signed Normal [facility] Laboratory - Chemistry and C hemistry - challengeOrdered By: Triny Moctezuma on 11-03-2024 Bilirubin Ql (U) Negative [facility] Glucose Ql (U) Negative [facility] Ketones Ql (U) Negative [facility] pH (U) 6 [pH] [facility] Specific gravity (U) [Rel density] 1.010 [facility] Laboratory - Hematology and Cell countsOrdered By: Triny Moctezuma on 11-03-2024 Hemoglobin Ql (U) Negative [facility] - UrinalysisOrder ed By: Triny Moctezuma on 11-03-2024 Nitrite Ql (U) Positive [facility] Protein Ql (U) Negative [facility] MR/Nicolas 11-03-2024 /[facility] [address], [address] [place] [address] OFFICE VISIT Date of Service: 11/03/24 MR#: [id number] Acct: [id number] Name: DAPHNEY BENSON Rep #: [id number] : 1960 Provider: Dr. 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: No Accompanied by: Self Is patient in pain?: No Allergies isoniazid Allergy (Verified 11/03/24 10:08) Other Medications ???Medication ???Instructions ???Recorded ???Confirmed ???Type metformin 1,000 mg tablet 1,000 mg PO BID DM 04/14/20 History montelukast 10 mg tablet 10 mg PO DAILY 04/14/20 11/03/24 H istory mometasone-formoterol HFA 200 2 inh inhalation PRN Wheezing 07/2211/03/24 History mcg-5 mcg/actuation aerosol inhaler [employer] 1 tablet PO DAILY 08/11/21 5 History bupropion HCl 150 mg 24 hr tablet, 150 mg PO DAILY 09/20/22 5 History extended release polyethylene glycol 3350 17 gram 17 g PO DAILY 09/20/22 11/03/24 Hi story oral powder packet (Miralax) trazodone 50 mg tablet 50 mg PO QHS 09/20/22 11/03/24 His tory hydrochlorothiazide 25 mg tablet 25 mg PO DAILY 01/04/23 11/03/24 H istory budesonide 160 mcg-glycopyr 9 2 inh inhalation BID 07/04/2307/25 History mcg-formot 4.8 mcg/actuation HFA inhaler (Breztri Aerosphere) cartilage 40 mg-collagen II-boron 1 tab PO QHS 07/04/23 11/03/24 Hi story 5 mg-hyaluronate sod 3.3 mg tablet (Move Free Ultra Triple Action (boron)) mecobalamin (vitamin B12) 5,000 5,000 mcg PO QHS 07/04/23 11/03/24 History mcg chewable tablet atorvastatin 20 mg tablet 20 mg PO QHS #90 tabs 10/31/2307/25 Rx dulaglutide 3 mg/0.5 mL 3 mg subcut QWEEK 01/13/24 5 History subcutaneous pen injector (Trulicity) loratadine 10 mg tablet 10 mg PO DAILY 01/13/24 11/03/24 H istory losartan 100 mg tablet 100 mg PO DAILY 01/13/24 11/03/24 History Bacillus coagulans 10 billion cell cell PO 09/18/24 11/03/24 Histor y capsule,delayed release (Probiotic (B. coagulans)) magnesium 200 mg tablet 400 mg PO QDAY 09/18/24 11/03/24 H istory vibegron 75 mg tablet (Gemtesa) 75 mg PO QDAY 09/18/24 11/03/24 Hi story gabapentin 300 mg capsule 300 mg PO 10/09/24 11/03/24 Histor y berberine chloride 500 mg capsule mg PO 11/03/24 11/03/24 History estradiol 0.01% (0.1 mg/gram) 1 g vaginal 3XW 3 months #42.5 09/24 Rx vaginal cream grams Post menopausal: Yes Patient : No Have you fallen in the past year?: No PFSH Medical History Tinnitus Loss of hearing MRSA infection Alcohol use Diabetes Ambulates with cane Low iron Anemia High cholesterol Dietary restriction History of ulceration GERD (gastroesophageal reflux disease) CPAP (continuous positive airway pressure) dependence Right hip pain Wears dentures Wears glasses Post-menopausal Anxiety Arthritis Excessive bleeding Back pain Syncope Gastric reflux Sleep apnea Smoker Asthma COPD (chronic obstructive pulmonary disease) Shortness of breath on exertion Chronic cough Leg cramps History of edema History of echocardiogram History of stress test Cardiology follow-up encounter Left rotator cuff tear Primary osteoarthritis, left shoulder Internal impingement of left shoulder Left shoulder pain Atherosclerotic heart disease of [place] coronary artery without angina pectoris History of left heart catheterization (LHC) ( 09/27/21) Abnormal stress test Bronchitis Palpitations Type 2 diabetes mellitus Diabetes COVID-19 MRSA (methicillin resistant staph aureus) culture positive Hypertension Vertigo Fracture, tibial plateau Depression Surgical History History of surgery on lower extremity H/O cataract removal with insertion of prosthetic lens History of esophagogastroduodenoscopy (EGD) History of colonoscopy History of shoulder surgery History of cardiac catheterization Hx of eye surgery Hx laparoscopic cholecystectomy Hx of section Hx of right knee surgery H/O: hysterectomy Family History Brother Atrial fibrillation Grandfather Myocardial infarction Grandmother Myocardial infarction Mother Dementia CAD (coronary artery disease) Hypertension Father COPD (chronic obstructive pulmonary disease) Hyp (more content not included)... Normal [facility] No Panel InformationOrdered By: Triny Moctezuma on 11-03-2024 Urine Leukocytes Positive [facility] Urine Non-Hemolyzed Blood Negative [facility] Orthopedic Visit Reporton Orthopedic Visit Report [facility] [address] [place] [address] [address] [place] [address] OFFICE VISIT Date of Service: 10/16/24 MR#: [id number] Acct: [id number] Name: DAPHNEY BENSON Rep #: [id number] : 1960 Provider: SENTHIL jerome Age/Sex: 64/F Location: [facility] Status: Signed Intake Vital Signs 09/18/24 10:29 10/16/24 09:06 Height 5 ft 1 in 5 ft 1 in Weight: 215 lb BMI 40.6 Intake Visit Reasons: BILATERAL KNEES Chief Complaint: 3 rdbilateral knee Euflexxa injection Accompanied by: Self Is patient in pain?: Yes Pain scale (1-10): 4 Allergies isoniazid Allergy (Verified 10/16/24 09:13) Other Medications ???Medication ???Instructions ???Recorded ???Confirmed ???Type metformin 1,000 mg tablet 1,000 mg PO BID DM 04/14/20 History montelukast 10 mg tablet 10 mg PO DAILY 04/14/20 10/16/24 H istory mometasone-formoterol HFA 200 2 inh inhalation PRN Wheezing 05/07/2210/16/24 History mcg-5 mcg/actuation aerosol inhaler [employer] 1 tablet PO DAILY 08/11/21 5 History bupropion HCl 150 mg 24 hr tablet, 150 mg PO DAILY 09/20/22 5 History extended release polyethylene glycol 3350 17 gram 17 g PO DAILY 09/20/22 10/16/24 Hi story oral powder packet (Miralax) trazodone 50 mg tablet 50 mg PO QHS 09/20/22 10/16/24 His tory hydrochlorothiazide 25 mg tablet 25 mg PO DAILY 01/04/23 10/16/24 H istory budesonide 160 mcg-glycopyr 9 2 inh inhalation BID 07/04/2309/30 History mcg-formot 4.8 mcg/actuation HFA inhaler (Breztri Aerosphere) cartilage 40 mg-collagen II-boron 1 tab PO QHS 07/04/23 10/16/24 Hi story 5 mg-hyaluronate sod 3.3 mg tablet (Move Free Ultra Triple Action (boron)) mecobalamin (vitamin B12) 5,000 5,000 mcg PO QHS 07/04/23 10/16/24 History mcg chewable tablet atorvastatin 20 mg tablet 20 mg PO QHS #90 tabs 10/31/23 Rx dulaglutide 3 mg/0.5 mL 3 mg subcut QWEEK 01/13/24 5 History subcutaneous pen injector (Trulicity) loratadine 10 mg tablet 10 mg PO DAILY 01/13/24 10/16/24 H istory losartan 100 mg tablet 100 mg PO DAILY 01/13/24 10/16/24 History Bacillus coagulans 10 billion cell cell PO 09/18/24 10/16/24 Histor y capsule,delayed release (Probiotic (B. coagulans)) magnesium 200 mg tablet 400 mg PO QDAY 09/18/24 10/16/24 H istory vibegron 75 mg tablet (Gemtesa) 75 mg PO QDAY 09/18/24 10/16/24 Hi story gabapentin 300 mg capsule 300 mg PO 10/09/24 10/16/24 Histor y Have you fallen in the past year?: No PFSH Medical History Tinnitus Loss of hearing MRSA infection Alcohol use Diabetes Ambulates with cane Low iron Anemia High cholesterol Dietary restriction History of ulceration GERD (gastroesophageal reflux disease) CPAP (continuous positive airway pressure) dependence Right hip pain Wears dentures Wears glasses Post-menopausal Anxiety Arthritis Excessive bleeding Back pain Syncope Gastric reflux Sleep apnea Smoker Asthma COPD (chronic obstructive pulmonary disease) Shortness of breath on exertion Chronic cough Leg cramps History of edema History of echocardiogram History of stress test Cardiology follow-up encounter Left rotator cuff tear Primary osteoarthritis, left shoulder Internal impingement of left shoulder Left shoulder pain Atherosclerotic heart disease of [place] coronary artery without angina pectoris History of left heart catheterization (LHC) ( 09/27/21) Abnormal stress test Bronchitis Palpitations Type 2 diabetes mellitus Diabetes COVID-19 MRSA (methicillin resistant staph aureus) culture positive Hypertension Vertigo Fracture, tibial plateau Depression Surgical History History of esophagogastroduodenoscopy (EGD) History of colonoscopy History of shoulder surgery History of cardiac catheterization Hx of eye surgery Hx laparoscopic cholecystectomy Hx of section Hx of right knee surgery H/O: hysterectomy Family History Brother Atrial fibrillation Grandfather Myocardial infarction Grandmother Myocardial infarction Mother Dementia CAD (coronary artery disease) Hypertension Father COPD (chronic obstructive pulmonary disease) Hypertension Cancer Prostate, Colon, Social History household members: none current occupational exposures/hazards: No history of recent travel: No Smoking Status: Former smoker quit date: 09/11/24 alcohol intake: current alcohol intake frequency: holidays/special occasions (more content not included)... Normal [facility] Orthopedic Visit Reporton Orthopedic Visit Report [facility] [address] [place] [address] OFFICE VISIT Date of Service: 10/09/24 MR#: [id number] Acct: [id number] Name: MARCELINODAPHNEY E Rep #: [id number] : 1960 Provider: SENTHIL jerome Age/Sex: 64/F Location: [facility] [place] Status: Signed Intake Vital Signs 09/18/24 10:29 Height 5 ft 1 in Intake Visit Reasons: BILATERAL KNEES Chief Complaint: 2nd bilateral knee Euflexxa injection Accompanied by: Self Is patient in pain?: Yes Allergies isoniazid Allergy (Verified 10/09/24 10:02) Other Medications ???Medication ???Instructions ???Recorded ???Confirmed ???Type metformin 1,000 mg tablet 1,000 mg PO BID DM 04/14/20 History montelukast 10 mg tablet 10 mg PO DAILY 04/14/20 10/09/24 H istory omeprazole 20 mg capsule,delayed 20 mg PO QHS GERD 04/14/20 5 History release mometasone-formoterol HFA 200 2 inh inhalation PRN Wheezing 05/07/2210/09/24 History mcg-5 mcg/actuation aerosol inhaler [employer] 1 tablet PO DAILY 08/11/21 5 History compress.stocking,knee,reg,l rg #2 ea 09/01/22 10/09/24 Rx (Relief Knee Close Toe Stocking) compression socks, large #2 ea 09/01/22 10/09/24 Rx bupropion HCl 150 mg 24 hr tablet, 150 mg PO DAILY 09/20/22 5 History extended release polyethylene glycol 3350 17 gram 17 g PO DAILY 09/20/22 10/09/24 Hi story oral powder packet (Miralax) trazodone 50 mg tablet 50 mg PO QHS 09/20/22 10/09/24 His tory hydrochlorothiazide 25 mg tablet 25 mg PO DAILY 01/04/23 10/09/24 H istory budesonide 160 mcg-glycopyr 9 2 inh inhalation BID 07/04/2309/30 History mcg-formot 4.8 mcg/actuation HFA inhaler (Breztri Aerosphere) cartilage 40 mg-collagen II-boron 1 tab PO QHS 07/04/23 10/09/24 Hi story 5 mg-hyaluronate sod 3.3 mg tablet (Move Free Ultra Triple Action (boron)) mecobalamin (vitamin B12) 5,000 5,000 mcg PO QHS 07/04/23 10/09/24 History mcg chewable tablet rxkdhbfp-nyga-mdkz 8 mg-folic 400 1 tab PO DAILY 07/04/23 10/09/24 History mcg-K 50 mcg-lutein 300 mcg tablet (Centrum Silver Women) atorvastatin 20 mg tablet 20 mg PO QHS #90 tabs 10/31/2301/24 Rx ferrous sulfate 325 mg (65 mg 325 mg PO ONCE SUPPLEMENT 01/08/24 10/09/24 History iron) tablet dulaglutide 3 mg/0.5 mL 3 mg subcut QWEEK 01/13/24 5 History subcutaneous pen injector (Trulicity) loratadine 10 mg tablet 10 mg PO DAILY 01/13/24 10/09/24 H istory losartan 100 mg tablet 100 mg PO DAILY 01/13/24 10/09/24 History Bacillus coagulans 10 billion cell cell PO 09/18/24 10/09/24 Histor y capsule,delayed release (Probiotic (B. coagulans)) magnesium 200 mg tablet 400 mg PO QDAY 09/18/24 10/09/24 H istory vibegron 75 mg tablet (Gemtesa) 75 mg PO QDAY 09/18/24 10/09/24 Hi story gabapentin 300 mg capsule 300 mg PO 10/09/24 10/09/24 Histor y Have you fallen in the past year?: Yes PFSH Medical History Tinnitus Loss of hearing MRSA infection Alcohol use Diabetes Ambulates with cane Low iron Anemia High cholesterol Dietary restriction History of ulceration GERD (gastroesophageal reflux disease) CPAP (continuous positive airway pressure) dependence Right hip pain Wears dentures Wears glasses Post-menopausal Anxiety Arthritis Excessive bleeding Back pain Syncope Gastric reflux Sleep apnea Smoker Asthma COPD (chronic obstructive pulmonary disease) Shortness of breath on exertion Chronic cough Leg cramps History of edema History of echocardiogram History of stress test Cardiology follow-up encounter Left rotator cuff tear Primary osteoarthritis, left shoulder Internal impingement of left shoulder Left shoulder pain Atherosclerotic heart disease of [place] coronary artery without angina pectoris History of left heart catheterization (LHC) ( 09/27/21) Abnormal stress test Bronchitis Palpitations Type 2 diabetes mellitus Diabetes COVID-19 MRSA (methicillin resistant staph aureus) culture positive Hypertension Vertigo Fracture, tibial plateau Depression Surgical History History of esophagogastroduodenoscopy (EGD) History of colonoscopy History of shoulder surgery History of cardiac catheterization Hx of eye surgery Hx laparoscopic cholecystectomy Hx of section Hx of right knee surgery H/O: hysterectomy Family History Brother Atrial fibrillation Grandfather Myocardial infarction Grandmother Myocardial infarction Mother Dementia CAD (coronary artery disease) Hypertension Father COPD (chronic o (more content not included)... Normal [facility] Absolute lymphocyte countOrd ered By: [facility] Yvrose Carreon on 10-07-2024 Lymphocytes Auto (Unsp spec) [#/Vol] 1.57 10*3/uL 0.83-4.51 [facility] Absolute neutrophil countOrd ered By: [facility] Car[facility] on 10-07-2024 Neutrophils (Bld) [#/Vol] 9.7 10*3/uL High 2.0-7.7 [facility] Anion gap in Serum or Plasma Ordered By: [facility] Yvrose Carreon on 10-07-2024 Anion gap [Moles/Vol] 15 mmol/L 5-15 [facility] Automated lymphocyte count a s percentage of total leukocytesOrdered By: [facility] Carreon on 10-07-2024 Lymphocytes/100 WBC Auto (Unsp spec) 13.0 % Low 19-41 [facility] BUN/creatinine ratioOrdered By: [facility] Carreon on 10-07-2024 Urea nitrogen/Creatinine [Mass ratio] 22.1 mg/mg High 10-20 [facility] Basophil percentageOrdered B y: [facility] Center[facility]vro[facility]andy Carreon on 10-07-2024 Basophils/100 WBC (Bld) 0.2 % 0-1 [facility] Bilirubin, totalOrdered By: [facility] Center[facility]vro[facility]andy Carreon on 10-07-2024 Bilirubin [Mass/Vol] 0.26 mg/dL 0.00-1.30 [facility] CBC W/Diff, Automatedon Absolute Lymph 1.57 X10 3/uL Normal 0.83-4.51 [facility] Comment on above: Performed By: #### L 501.9520, L500.4100, L500.4050, L501.5200, L100.0100, L506.1001 ####[facility] [address] [place], [address] Absolute Neut 9.7 X10 3/uL High 2.0-7.7 [facility] Comment on above: Performed By: #### L 501.9520, L500.4100, L500.4050, L501.5200, L100.0100, L506.1001 ####[facility] [address] [place], [address] Basophils/100 WBC (Bld) 0.2 % Normal 0-1 [facility] Comment on above: Performed By: #### L 501.9520, L500.4100, L500.4050, L501.5200, L100.0100, L506.1001 ####[facility] [address] [place], [address] Eosinophils/100 WBC (Bld) 1.1 % Normal 0-5 [facility] Comment on above: Performed By: #### L 501.9520, L500.4100, L500.4050, L501.5200, L100.0100, L506.1001 ####[facility] [address] [place], [address] Erythrocyte distribution width (RBC) [Ratio] 14.3 % Normal 11.6-14.6 [facility] Comment on above: Performed By: #### L 501.9520, L500.4100, L500.4050, L501.5200, L100.0100, L506.1001 ####[facility] [address] [place], [address] Hematocrit (Bld) [Volume fraction] 37.0 % Normal 37-47 [facility] Comment on above: Performed By: #### L 501.9520, L500.4100, L500.4050, L501.5200, L100.0100, L506.1001 ####[facility] [address] [place], [address] Hemoglobin (Bld) [Mass/Vol] 12.6 g/dL Normal 12.0-15.0 [facility] Comment on above: Performed By: #### L 501.9520, L500.4100, L500.4050, L501.5200, L100.0100, L506.1001 ####[facility] [address] [place], [address] IG% 0.400 Normal 0.0-0.9 [facility] Comment on above: Result Comment: IG% - Immature Granulocytes (promyelocytes, myelocytes and metamyelocytes) > 1% indicates that a LEFT SHIFT is Present. Performed By: #### L 501.9520, L500.4100, L500.4050, L501.5200, L100.0100, L506.1001 ####[facility] [address] [place], [address] Lymphocytes/100 WBC (Bld) 13.0 % Low 19-41 [facility] Comment on above: Performed By: #### L 501.9520, L500.4100, L500.4050, L501.5200, L100.0100, L506.1001 ####[facility] [address] [place], [address] MCH (RBC) [Entitic mass] 28.1 pg Normal 27.0-32.0 [facility] Comment on above: Performed By: #### L 501.9520, L500.4100, L500.4050, L501.5200, L100.0100, L506.1001 ####[facility] [address] [place], [address] MCHC (RBC) [Mass/Vol] 34.1 g/dL Normal 32-36 [facility] Comment on above: Performed By: #### L 501.9520, L500.4100, L500.4050, L501.5200, L100.0100, L506.1001 ####[facility] [address] [place], [address] MCV (RBC) [Entitic vol] 82.4 fL Normal 81-99 [facility] Comment on above: Performed By: #### L 501.9520, L500.4100, L500.4050, L501.5200, L100.0100, L506.1001 ####[facility] [address] [place], [address] Monocytes/100 WBC (Bld) 4.6 % Normal 0-10 [facility] Comment on above: Performed By: #### L 501.9520, L500.4100, L500.4050, L501.5200, L100.0100, L506.1001 ####[facility] [address] [place], [address] Neutrophils/100 WBC (Bld) 80.7 % High 47-70 [facility] Comment on above: Performed By: #### L 501.9520, L500.4100, L500.4050, L501.5200, L100.0100, L506.1001 ####[facility] [address] [place], [address] Nucleated RBC (Bld) [#/Vol] 0 10*3/uL Normal 0-5 [facility] Comment on above: Performed By: #### L 501.9520, L500.4100, L500.4050, L501.5200, L100.0100, L506.1001 ####[facility] [address] [place], [address] Platelet mean volume (Bld) [Entitic vol] 10.1 fL Normal 6.2-12.0 [facility] Comment on above: Performed By: #### L 501.9520, L500.4100, L500.4050, L501.5200, L100.0100, L506.1001 ####[facility] [address] [place], [address] Platelets (Bld) [#/Vol] 356 10*3/uL Normal 150-450 [facility] Comment on above: Performed By: #### L 501.9520, L500.4100, L500.4050, L501.5200, L100.0100, L506.1001 ####[facility] [address] [place], [address] RBC (Bld) [#/Vol] 4.49 10*6/uL Normal 4.2-5.4 [facility] Comment on above: Performed By: #### L 501.9520, L500.4100, L500.4050, L501.5200, L100.0100, L506.1001 ####[facility] [address] [place], [address] RDW SD 42.5 fl Normal 35.1-43.9 [facility] Comment on above: Performed By: #### L 501.9520, L500.4100, L500.4050, L501.5200, L100.0100, L506.1001 ####[facility] [address] [place], [address] WBC (Bld) [#/Vol] 12.1 10*3/uL High 4.4-11.0 [facility] Comment on above: Performed By: #### L 501.9520, L500.4100, L500.4050, L501.5200, L100.0100, L506.1001 ####[facility] [address] [place], [address] Calculated very low density lipoprotein (VLDL) cholesterol measurementOrdered By: [facility] Yvrose Carreon on 10-07-2024 Calculated very low density lipoprotein (VLDL) cholesterol measurement 14 mg/dL 5-40 [facility] Carbon dioxide, total [Moles /volume] in Central venous bloodOrdered By: [facility] Yvrose Carreon on 10-07-2024 CO2 [Moles/Vol] 24.8 mmol/L 21.0-32.0 [facility] Chloride assayOrdered By: [facility] Yvrose Carreon on 10-07-2024 Chloride [Moles/Vol] 94 mmol/L Low 98-108 [facility] Comprehensive Metabolic Prof ilon 10-07-2024 Albumin [Mass/Vol] 4.3 g/dL Normal 3.4-4.8 [facility] Comment on above: Performed By: #### L 501.9520, L500.4100, L500.4050, L501.5200, L100.0100, L506.1001 ####[facility] [address] [place], [address] Albumin/Globulin [Mass ratio] 1.6 {ratio} Normal 0.9-2.4 [facility] Comment on above: Performed By: #### L 501.9520, L500.4100, L500.4050, L501.5200, L100.0100, L506.1001 ####[facility] [address] [place], [address] ALK PHOS 115 U/L High 35-104 [facility] Comment on above: Performed By: #### L 501.9520, L500.4100, L500.4050, L501.5200, L100.0100, L506.1001 ####[facility] [address] [place], [address] ALT [Catalytic activity/Vol] 19 U/L Normal <=34 [facility] Comment on above: Performed By: #### L 501.9520, L500.4100, L500.4050, L501.5200, L100.0100, L506.1001 ####[facility] [address] [place], [address] AST [Catalytic activity/Vol] 18 U/L Normal <=31 [facility] Comment on above: Performed By: #### L 501.9520, L500.4100, L500.4050, L501.5200, L100.0100, L506.1001 ####[facility] [address] [place], [address] Bilirubin [Mass/Vol] 0.26 mg/dL Normal 0.00-1.30 [facility] Comment on above: Performed By: #### L 501.9520, L500.4100, L500.4050, L501.5200, L100.0100, L506.1001 ####[facility] [address] [place], [address] BUN/CRE 22.1 RATIO High 10-20 [facility] Comment on above: Performed By: #### L 501.9520, L500.4100, L500.4050, L501.5200, L100.0100, L506.1001 ####[facility] [address] [place], [address] Calcium [Mass/Vol] 10.1 mg/dL Normal 7.6-11.0 [facility] Comment on above: Performed By: #### L 501.9520, L500.4100, L500.4050, L501.5200, L100.0100, L506.1001 ####[facility] [address] [place], [address] Chloride [Moles/Vol] 94 mmol/L Low 98-108 [facility] Comment on above: Performed By: #### L 501.9520, L500.4100, L500.4050, L501.5200, L100.0100, L506.1001 ####[facility] [address] [place], [address] CO2 [Moles/Vol] 24.8 mmol/L Normal 21.0-32.0 [facility] Comment on above: Performed By: #### L 501.9520, L500.4100, L500.4050, L501.5200, L100.0100, L506.1001 ####[facility] [address] [place], [address] Creatinine [Mass/Vol] 0.80 mg/dL Normal 0.70-1.20 [facility] Comment on above: Performed By: #### L 501.9520, L500.4100, L500.4050, L501.5200, L100.0100, L506.1001 ####[facility] [address] [place], [place], [phone]) GAP 15 Normal 5-15 [facility] Comment on above: Performed By: #### L 501.9520, L500.4100, L500.4050, L501.5200, L100.0100, L506.1001 ####[facility] [address] [place], [address](249) GFR/1.73 sq M.predicted among non-blacks MDRD (S/P/Bld) [Vol rate/Area] 81 mL/min/{1.73_m2} Normal >60 [facility] Comment on above: Result Comment: mL/m in/1.73m2 CKD-EPI Creatinine Equation (2020) Performed By: #### L 501.9520, L500.4100, L500.4050, L501.5200, L100.0100, L506.1001 ####[facility] [address] [place], [place], [phone] Globulin (S) [Mass/Vol] 2.8 g/dL Normal 2.2-4.2 [facility] Comment on above: Performed By: #### L 501.9520, L500.4100, L500.4050, L501.5200, L100.0100, L506.1001 ####[facility] [address] [place], [place], [phone] Glucose [Mass/Vol] 152 mg/dL High 70-99 [facility] Comment on above: Performed By: #### L 501.9520, L500.4100, L500.4050, L501.5200, L100.0100, L506.1001 ####[facility] [address] [place], [address] Potassium [Moles/Vol] 4.5 mmol/L Normal 3.3-5.1 [facility] Comment on above: Performed By: #### L 501.9520, L500.4100, L500.4050, L501.5200, L100.0100, L506.1001 ####[facility] [address] [place], [address] Sodium [Moles/Vol] 134 mmol/L Normal 133-145 [facility] Comment on above: Performed By: #### L 501.9520, L500.4100, L500.4050, L501.5200, L100.0100, L506.1001 ####[facility] [address] [place], [address] T PROT 7.1 g/dL Normal 5.9-8.4 [facility] Comment on above: Performed By: #### L 501.9520, L500.4100, L500.4050, L501.5200, L100.0100, L506.1001 ####[facility] [address] [place], [address] Urea nitrogen [Mass/Vol] 18 mg/dL Normal 4-19 [facility] Comment on above: Performed By: #### L 501.9520, L500.4100, L500.4050, L501.5200, L100.0100, L506.1001 ####[facility] [address] [place], [address] Eosinophil percentageOrdered By: [facility] Yvrose Carreon on 10-07-2024 Eosinophils/100 WBC (Bld) 1.1 % 0-5 [facility] Erythrocyte distribution wid th ratioOrdered By: [facility] Yvrose Carreon on 10-07-2024 Erythrocyte distribution width (RBC) [Ratio] 14.3 % 11.6-14.6 [facility] Erythrocyte distribution wid th standard deviationOrdered By: [facility] Yvrose Carreon on 10-07-2024 Erythrocyte distribution width (RBC) [Ratio] 42.5 fl 35.1-43.9 [facility] Glomerular filtration rate ( GFR) estimation/1.73 sq m using serum, plasma, or whole bOrdered By: [facility] Yvrose Carreon on 10-07-2024 GFR/1.73 sq M.predicted among non-blacks MDRD (S/P/Bld) [Vol rate/Area] 81 mL/min/{1.73_m2} >60 [facility] Comment on above: mL/min/1.73m2 CKD-EP I Creatinine Equation (2020) Hematocrit Auto (Bld) [Volum e fraction]Ordered By: [facility] Yvrose Carreon on 10-07-2024 Hematocrit (Bld) [Volume fraction] 37.0 % 37-47 [facility] Hemoglobin measurementOrdere d By: [facility] Yvrose Carreon on 10-07-2024 Hemoglobin (Bld) [Mass/Vol] 12.6 g/dL 12.0-15.0 [facility] Immature granulocytes/100 WB C Auto (Bld)Ordered By: [facility] Yvrose Carreon on 10-07-2024 Immature granulocytes/100 WBC (Bld) 0.400 % 0.0-0.9 [facility] Comment on above: IG% - Immature Granu locytes (promyelocytes, myelocytes and metamyelocytes) > 1% indicates that a LEFT SHIFT is Present. LDL calc ser/plasOrdered By: [facility] Yvrose Carreon on 10-07-2024 Cholesterol in LDL [Mass/Vol] 51 mg/dL [facility] Comment on above: Uvxveqfzko=081-480 m g/dL & Higher Yfxj=841 mg/dL or greater Laboratory - Chemistry and C hemistry - challengeOrdered By: [facility] Yvrose Carreon on 10-07-2024 AST [Catalytic activity/Vol] 18 U/L <32 [facility] Lipid Profileon 10-07-2024 CHOL:HDL 1.91 Normal [facility] Comment on above: Performed By: #### L 501.5988, L500.4100, L500.4050, L501.5200, L100.0100, L506.1001 ####[facility] [address] [place], [address] Cholesterol [Mass/Vol] 135 mg/dL Normal <=200 [facility] Comment on above: Result Comment: Chol esterol level, Desirable <200 mg/dL Borderline high cholesterol 200-239 mg/dL High cholesterol >=240 mg/dL Recommendations of the NCEP Adult Treatment Panel for the following risk-cutoff thresholds for the [place] population. Performed By: #### L 501.9520, L500.4100, L500.4050, L501.5200, L100.0100, L506.1001 ####[facility] [address] [place], [address] Cholesterol in HDL [Mass/Vol] 71 mg/dL Normal [facility] Comment on above: Result Comment: Sarah onal Cholesterol Education Program (NCEP) guidelines: <40 mg/dL: Low HDL-cholesterol (major risk factor for CHD) >= 60 mg/dL: High HDL-cholesterol (negative risk factor for CHD) HDL-cholesterol is affected by a number of factors, e.g. smoking, exercise, hormones, sex and age. Performed By: #### L 501.9520, L500.4100, L500.4050, L501.5200, L100.0100, L506.1001 ####[facility] [address] [place], [address] Cholesterol in LDL [Mass/Vol] 51 mg/dL Normal [facility] Comment on above: Result Comment: Bord iyozfa=915-639 mg/dL Higher Fwxr=054 mg/dL or greater Performed By: #### L 501.9520, L500.4100, L500.4050, L501.5200, L100.0100, L506.1001 ####[facility] [address] [place], [address] Cholesterol in VLDL [Mass/Vol] 14 mg/dL Normal 5-40 [facility] Comment on above: Performed By: #### L 501.9520, L500.4100, L500.4050, L501.5200, L100.0100, L506.1001 ####[facility] [address] [place], [address] Triglyceride [Mass/Vol] 69 mg/dL Normal [facility] Comment on above: Result Comment: The drugs N-Acetylcysteine and Metamizole may falsely depress this assay. Normal range: <150 mg/dL Borderline High: 150-199 mg/dL High: 200-499 mg/dL Very High: >500 mg/dL Performed By: #### L 501.9520, L500.4100, L500.4050, L501.5200, L100.0100, L506.1001 ####[facility] [address] [place], [address] MCV (mean corpuscular volume ) determinationOrdered By: [facility] Yvrose Carreon on 10-07-2024 MCV (RBC) [Entitic vol] 82.4 fL 81-99 [facility] Magnesiumon 10-07-2024 Magnesium [Mass/Vol] 1.9 mg/dL Normal 1.5-2.2 [facility] Comment on above: Performed By: #### L 501.9520, L500.4100, L500.4050, L501.5200, L100.0100, L506.1001 ####[facility] [address] [place], [place], [id number] Magnesium measurement (mass/ volume)Ordered By: [facility] Yvrose Carreon on 10-07-2024 Magnesium (Unsp spec) [Mass/Vol] 1.9 mg/dL 1.5-2.2 [facility] Mean corpuscular hemoglobin (MCH) determinationOrdered By: [facility] Yvrose Carreon on 10-07-2024 MCH (RBC) [Entitic mass] 28.1 pg 27.0-32.0 [facility] Mean corpuscular hemoglobin concentration (MCHC) determinationOrdered By: [facility] Yvrose Carreon on 10-07-2024 MCHC (RBC) [Mass/Vol] 34.1 g/dL 32-36 [facility] Mean platelet volume determi nationOrdered By: [facility] Yvrose Carreon on 10-07-2024 Platelet mean volume (Bld) [Entitic vol] 10.1 fL 6.2-12.0 [facility] Monocyte percentageOrdered B y: [facility] Yvrose Carreon on 10-07-2024 Monocytes/100 WBC (Bld) 4.6 % 0-10 [facility] Neutrophil percentageOrdered By: [facility] Yvrose Carreon on 10-07-2024 Neutrophils/100 WBC (Bld) 80.7 % High 47-70 [facility] Nucleated red blood cell per centageOrdered By: [facility] Yvrose Carreon on 10-07-2024 Nucleated RBC/100 WBC (Bld) [Ratio] 0 % 0-5 [facility] Platelet countOrdered By: [facility] Yvrose Carreon on 10-07-2024 Platelets (Bld) [#/Vol] 356 10*3/uL 150-450 [facility] Potassium measurement (mass/ volume)Ordered By: [facility] Yvrose Carreon on 10-07-2024 Potassium (Unsp spec) [Mass/Vol] 4.5 mmol/L 3.3-5.1 [facility] RBC Auto (Bld) [#/Vol]Ordere d By: [facility] Yvrose Carreon on 10-07-2024 RBC (Bld) [#/Vol] 4.49 10*6/uL 4.2-5.4 [facility] Screening total cholesterol/ high density lipoprotein (HDL) cholesterol ratioOrdered By: [facility] Yvrose Carreon on 10-07-2024 Cholesterol.total/Chol esterol in HDL [Mass ratio] 1.91 {ratio} [facility] Serum creatinine measurement (mass/volume)Ordered By: [facility] Yvrose Carreon on 10-07-2024 Creatinine [Mass/Vol] 0.80 mg/dL 0.70-1.20 [facility] Serum globulin measurementOr dered By: [facility] Yvrose Carreon on 10-07-2024 Globulin (S) [Mass/Vol] 2.8 g/dL 2.2-4.2 [facility] Serum glucose measurement (m ass/volume)Ordered By: [facility] Yvrose Nikhil on 10-07-2024 Glucose [Mass/Vol] 152 mg/dL High 70-99 [facility] Serum or plasma alanine zhou otransferase (ALT) measurementOrdered By: [facility] Yvrose Nikhil on 10-07-2024 ALT [Catalytic activity/Vol] 19 U/L <35 [facility] Serum or plasma albumin tracey urement (mass/volume)Ordered By: [facility] Yvrose Nikhil on 10-07-2024 Albumin [Mass/Vol] 4.3 g/dL 3.4-4.8 [facility] Serum or plasma albumin/glob ulin mass ratioOrdered By: [facility] Nikhil on 10-07-2024 Albumin/Globulin [Mass ratio] 1.6 {ratio} 0.9-2.4 [facility] Serum or plasma alkaline herlinda sphatase measurementOrdered By: [facility] Yvrose Nikhil on 10-07-2024 ALP [Catalytic activity/Vol] 115 U/L High 35-104 [facility] Serum or plasma calcium tracey urement (mass/volume)Ordered By: [facility] Yvrose Nikhil on 10-07-2024 Calcium [Mass/Vol] 10.1 mg/dL 7.6-11.0 [facility] Serum or plasma cholesterol in HDL measurement (mass/volume)Ordered By: [facility] Yvrose Nikhil on 10-07-2024 Cholesterol in HDL [Mass/Vol] 71 mg/dL >40 [facility] Comment on above: National Cholesterol Education Program (NCEP) guidelines:<40 mg/dL: Low HDL-cholesterol (major risk factor for CHD)>= 60 mg/dL: High HDL-cholesterol (negative risk factor for CHD)HDL-cholesterol is affected by a number of factors, e.g. smoking, exercise, hormones, sex and age. Serum or plasma cholesterol measurement (mass/volume)Ordered By: [facility] Yvroseapolinar Carreon on 10-07-2024 Cholesterol [Mass/Vol] 135 mg/dL <201 [facility] Comment on above: Cholesterol level, D esirable <200 mg/dLBorderline high cholesterol 200-239 mg/dLHigh cholesterol >=240 mg/dLRecommendations of the NCEP Adult Treatment Panel for the following risk-cutoff thresholds for the [place] population. Serum or plasma urea nitroge n measurement (mass/volume)Ordered By: [facility] Yvrose Carreon on 10-07-2024 Urea nitrogen [Mass/Vol] 18 mg/dL 4-19 [facility] Sodium levelOrdered By: [facility] on 10-07-2024 Sodium [Moles/Vol] 134 mmol/L 133-145 [facility] TSH DL <= 0.005 mIU/L QnOrde red By: [facility] on 10-07-2024 TSH Qn 1.280 uIU/mL 0.300-4.20 0 [facility] Thyroid Stim Hormone (TSH)on 10-07-2024 TSH 1.280 uIU/mL Normal 0.300-4.20 0 [facility] Comment on above: Performed By: #### L 501.9520, L500.4100, L500.4050, L501.5200, L100.0100, L506.1001 ####[facility] [address] [place], [address] Total proteinOrdered By: [facility] Yvrose Carreon on 10-07-2024 Protein [Mass/Vol] 7.1 g/dL 5.9-8.4 [facility] Triglycerides measurementOrd ered By: [facility] Carreon on 10-07-2024 Triglyceride [Mass/Vol] 69 mg/dL <199 [facility] Comment on above: The drugs N-Acetylcy steine and Metamizole may falsely depress this assay. Normal range: <150 mg/dLBorderline High: 150-199 mg/dLHigh: 200-499 mg/dLVery High: >500 mg/dL Vitamin D,25 Hydroxyon 10-07 Vitamin D 25-OH 64.6 ng/mL Normal 30-100 [facility] Comment on above: Result Comment: Kacie min D Status Deficiency: <20 ng/mL (50nmol/L) Insufficiency: 20-30 ng/mL (50-75 nmol/L) Sufficiency: 30-100 ng/mL (75-250 nmol/L) Toxicity: >100 ng/mL (>250 nmol/L) Performed By: #### L 501.9520, L500.4100, L500.4050, L501.5200, L100.0100, L506.1001 ####[facility] [address] [place], [address] White blood cell (WBC) count Ordered By: [facility] Yvrose Carreon on 10-07-2024 WBC (Bld) [#/Vol] 12.1 10*3/uL High 4.4-11.0 [facility] Orthopedic Visit Reporton Orthopedic Visit Report [facility] [address] [place] [address] [address] [place] [address] OFFICE VISIT Date of Service: 10/02/24 MR#: [id number] Acct: [id number] Name: DAPHNEY BENSON Rep #: [id number] : 1960 Provider: SENTHIL jerome Age/Sex: 64/F Location: [facility] [place] Status: Signed Intake Vital Signs 09/18/24 10:29 Height 5 ft 1 in Intake Visit Reasons: left knee Chief Complaint: 1st bilateral knee Euflexxa injection Accompanied by: Self Allergies isoniazid Allergy (Verified 10/02/24 10:02) Other Medications ???Medication ???Instructions ???Recorded ???Confirmed ???Type metformin 1,000 mg tablet 1,000 mg PO BID DM 04/14/20 History montelukast 10 mg tablet 10 mg PO DAILY 04/14/20 10/02/24 H istory omeprazole 20 mg capsule,delayed 20 mg PO QHS GERD 04/14/20 5 History release mometasone-formoterol HFA 200 2 inh inhalation PRN Wheezing 05/07/2210/02/24 History mcg-5 mcg/actuation aerosol inhaler [employer] 1 tablet PO DAILY 08/11/21 5 History compress.stocking,knee,reg,l rg #2 ea 09/01/22 10/02/24 Rx (Relief Knee Close Toe Stocking) compression socks, large #2 ea 09/01/22 10/02/24 Rx bupropion HCl 150 mg 24 hr tablet, 150 mg PO DAILY 09/20/22 5 History extended release polyethylene glycol 3350 17 gram 17 g PO DAILY 09/20/22 10/02/24 Hi story oral powder packet (Miralax) trazodone 50 mg tablet 50 mg PO QHS 09/20/22 10/02/24 His tory hydrochlorothiazide 25 mg tablet 25 mg PO DAILY 01/04/23 10/02/24 H istory budesonide 160 mcg-glycopyr 9 2 inh inhalation BID 07/04/2306/24 History mcg-formot 4.8 mcg/actuation HFA inhaler (Breztri Aerosphere) cartilage 40 mg-collagen II-boron 1 tab PO QHS 07/04/23 10/02/24 Hi story 5 mg-hyaluronate sod 3.3 mg tablet (Move Free Ultra Triple Action (boron)) cholecalciferol (vitamin D3) 1,250 1,250 mcg PO FR 07/04/23 5 History mcg (50,000 unit) capsule mecobalamin (vitamin B12) 5,000 5,000 mcg PO QHS 07/04/23 10/02/24 History mcg chewable tablet khcuzful-coas-gydb 8 mg-folic 400 1 tab PO DAILY 07/04/23 10/02/24 History mcg-K 50 mcg-lutein 300 mcg tablet (Centrum Silver Women) atorvastatin 20 mg tablet 20 mg PO QHS #90 tabs 10/31/2306/24 Rx ferrous sulfate 325 mg (65 mg 325 mg PO ONCE SUPPLEMENT 01/08/24 10/02/24 History iron) tablet dulaglutide 3 mg/0.5 mL 3 mg subcut QWEEK 01/13/24 5 History subcutaneous pen injector (Trulicity) loratadine 10 mg tablet 10 mg PO DAILY 01/13/24 10/02/24 H istory losartan 100 mg tablet 100 mg PO DAILY 01/13/24 10/02/24 History Bacillus coagulans 10 billion cell cell PO 09/18/24 10/02/24 Histor y capsule,delayed release (Probiotic (B. coagulans)) magnesium 200 mg tablet 400 mg PO QDAY 09/18/24 10/02/24 H istory vibegron 75 mg tablet (Gemtesa) 75 mg PO QDAY 09/18/24 10/02/24 Hi story Have you fallen in the past year?: Yes PFSH Medical History Tinnitus Loss of hearing MRSA infection Alcohol use Diabetes Ambulates with cane Low iron Anemia High cholesterol Dietary restriction History of ulceration GERD (gastroesophageal reflux disease) CPAP (continuous positive airway pressure) dependence Right hip pain Wears dentures Wears glasses Post-menopausal Anxiety Arthritis Excessive bleeding Back pain Syncope Gastric reflux Sleep apnea Smoker Asthma COPD (chronic obstructive pulmonary disease) Shortness of breath on exertion Chronic cough Leg cramps History of edema History of echocardiogram History of stress test Cardiology follow-up encounter Left rotator cuff tear Primary osteoarthritis, left shoulder Internal impingement of left shoulder Left shoulder pain Atherosclerotic heart disease of [place] coronary artery without angina pectoris History of left heart catheterization (LHC) ( 09/27/21) Abnormal stress test Bronchitis Palpitations Type 2 diabetes mellitus Diabetes COVID-19 MRSA (methicillin resistant staph aureus) culture positive Hypertension Vertigo Fracture, tibial plateau Depression Surgical History History of esophagogastroduodenoscopy (EGD) History of colonoscopy History of shoulder surgery History of cardiac catheterization Hx of eye surgery Hx laparoscopic cholecystectomy Hx of section Hx of right knee surgery H/O: hysterectomy Family History Brother Atrial fibrillation Grandfather Myocardial infarction Grandmother Myocardial infarction Mother Dementia CAD (coronary artery disease) Hypertension Father COPD ( (more content not included)... Normal [facility] Re-Evaluation - PT (1)on Re-Evaluation - PT (1) [facility] Physical Therapy [facility] [address] [place] [address]. [address] [place] [address] / REEVALUATION / MEDICARE RECERTIFICATION PHYSICAL THERAPY MR#: [id number] Acct: [id number] Name: DAPHNEY BENSON Rep #: [id number] : 1960 64 From: Fabienne Brambila MPT Referring Dr.: SENTHIL Amaral Status:REG RCR Insurance: [employer] INSURANCE Re-Evaluation Intro: Christiana Amaral, SENTHIL, It has been my pleasure to treat DAPHNEY BENSON over the last 9 visits for LBP, L hip pain, L knee DDD. Please see the progress note below for an update on the physical therapy plan of care! Subjective Subjective: Saw the Dr yesterday. per pt, slight bulging disc, degeneration in spine. per pt, Dr thinks she has a tight ligament in her hip. pt feels PT is helping. Pain management injections soon. Pt has more pain in her L hip and down the side of her R leg. Today is the first day she has felt less pain to actually do something Objective Objective/Function: LE MMT: R hip flex 10.7 and L 9 R knee ext 18.8 and L 18.6 R knee flex 9.6 and L 10.3 R hip abd 18 and L 13.6 Piriformis Tight on the L and painful Palpation: tender along the L greater trochanter, IT band and piriformis Gait: hard to advance L LE with gait and does not take as long of a stride as the R. Decreased stance time on the L LE but walking more upright and less flat footed Plan Plan Plan: Ask for additional 4 weeks as pt is improving in function with less pain 2X/ week for 8 weeks for hip and knee ROM, strengthening, core stability with HEP Balance/Gait/Functional tests Balance/Special Test Scores Oswestry Low Back Score: 17 Goals Goals Goal 1:: I HEP Goal Time Frame: 6-8 Weeks Goal Progress: Goal Met Goal 2:: Be able to walk back to the treatment area with increased stride length and more heel to toe gait pattern Goal Time Frame: 6-8 Weeks Goal Progress: Progressing Goal 3:: Decrease B hip and knee pain by 50% with gait Goal Time Frame: 6-8 Weeks Goal Progress: Progressing Goal 4:: Increase LE strength (at the time of the eval: LE MMT: R hip flex 10.7 and L 9 R knee ext 18.8 and L 18.6 R knee flex 9.6 and L 9.8 R hip and 18 and L 13.6) Goal Time Frame: 6-8 Weeks Goal Progress: Progressing Anticipated Interventions Anticipated Interventions Patient/Client Instruction: Educate patient on: Condition and Plan of Care For the Purpose of:: To decrease pain, To increase ROM, To improve nutrient delivery to tissue, To improve muscle performance and motor function, To improve ability to perform ADL's, To increase tolerance to activity/condition/position, To improve performance and independence with ADL's, To decrease level of supervision to perform tasks, To improve ability of physical actions for home/community/work/leisure, To improve gait and locomotor functions, To improve health of tissue, To decrease soft tissue restriction, To increase flexibility/ROM and To improve endurance Therapeutic Exercise to Include: Strength training, Postural training, Flexibilty training, Gait and locomotor training, Active ROM and Dynamic Lumbar Stabilization For the Purpose of:: To decrease pain, To decrease swelling/inflammation, To increase ROM, To improve nutrient delivery to tissue, To improve muscle performance and motor function, To improve ability to perform ADL's, To increase tolerance to activity/condition/position, To improve ability of physical actions for home/community/work/leisure, To improve gait and locomotor functions, To improve health of tissue, To decrease soft tissue restriction and To increase flexibility/ROM Functional Training to Include: Gait training For the Purpose of:: To improve gait and locomotor functions Manual Therapy Techniques to Include: Passive ROM For the Purpose of:: To increase ROM and To improve muscle performance and motor function Re-Evaluation Ending Re-evaluation ending: Please do not hesitate to contact me at [phone] by phone or if you have questions or concerns regarding this new plan of care! Sincerely, DENISE Childers 09/19/24 1057 CC: SENTHIL Amaral; [facility] SENTHIL Carreon Signed For Medicare only, by signing this I certify the plan of care. Physicians Signature Date Normal [facility] Knee 4 or More Viewson 09-18 Knee 4 or More Views [facility] [facility] [address] [place] [address] Knee 4 or More Views MR#: [id number] Acct: [id number] Name: DAPHNEY BENSON Rep #: [id number] : 1960 F 64 From: Azra gould MD PCP: ELENA Zhao, SENTHIL Status: DEP AMB Study: Knee 4 or More Views Date of Exam: 09/18/24 Exam# [id number] Ordering Dr: Christiana Amaral PROCEDURE: KNEE 4 OR MORE VIEWS 09/18/2024 REASON FOR EXAM: INCREASING KNEE PAIN, HX ORIF TIBIA TECHNIQUE: KNEE 4 OR MORE VIEWS COMPARISON: None. FINDINGS: Chronic deformity of the lateral tibial plateau. Unremarkable proximal tibial metallic hardware. Enthesophyte formation at the lower pole of the patella. Mild suprapatellar knee joint effusion. Mild osteopenia of the visualized bones. Degenerative joint disease. No fracture or dislocation is seen. No lytic or blastic bone lesion is noted. RAD/Knee 4 or More Views IMPRESSION: Mild suprapatellar knee joint effusion. No radiographic evidence of an acute bone abnormality. Reading Location: [place] [address] CC: SENTHIL Amaral; [facility] SENTHIL Carreon Motorcycle Assembler: Signed Normal [facility] Orthopedic Visit Reporton Orthopedic Visit Report [facility] [address] [place] [address] [place] [address] OFFICE VISIT Date of Service: 09/18/24 MR#: [id number] Acct: [id number] Name: DAPHNEY BENSON Rep #: [id number] : 1960 Provider: SENTHIL jerome Age/Sex: 64/F Location: [facility] [place] Status: Signed with Addenda ADDENDUM by Christy Martines on 09/19/24 at 1312 Assessment and Plan Assessment and Plan (1) Localized osteoarthritis of left knee: Status: Acute (2) Right knee DJD: Status: Acute Qualifiers: Osteoarthritis type: unspecified Qualified Code(s): M17.11 - Unilateral primary osteoarthritis, right knee (3) SI (sacroiliac) joint dysfunction: Status: Acute (4) Obesity, class 3: Status: Acute (5) Body mass index [BMI] 40.0-44.9, adult: Status: Acute Orders: Orders Knee 4 or More Views 09/18/24 M17.11 - Unilateral primary osteoarthritis, right knee Comments Comments: Patient stopped smoking on 09/11/2024 09/19/24 1602 Date Christiana Amaral cc: * Signed Intake Vital Signs 08/13/24 11:11 08/22/24 10:48 09/18/24 09:43 Height 5 ft 1 in 5 ft 1 in 5 ft 1 in Weight: 217 lb BMI 41.0 Intake Visit Reasons: LEFT HIP Chief Complaint: Left knee/hip follow-up Accompanied by: Self Is patient in pain?: Yes (Hip - 4 Knee - 3) Pain scale (1-10): 4 Allergies isoniazid Allergy (Verified 09/18/24 09:45) Other Medications ???Medication ???Instructions ???Recorded ???Confirmed ???Type metformin 1,000 mg tablet 1,000 mg PO BID DM 04/14/20 History montelukast 10 mg tablet 10 mg PO DAILY 04/14/20 09/18/24 H istory omeprazole 20 mg capsule,delayed 20 mg PO QHS GERD 04/14/20 5 History release mometasone-formoterol HFA 200 2 inh inhalation PRN Wheezing 05/07/2209/18/24 History mcg-5 mcg/actuation aerosol inhaler [employer] 1 tablet PO DAILY 08/11/21 5 History compress.stocking,knee,reg,l rg #2 ea 09/01/22 08/22/24 Rx (Relief Knee Close Toe Stocking) compression socks, large #2 ea 09/01/22 08/22/24 Rx bupropion HCl 150 mg 24 hr tablet, 150 mg PO DAILY 06/21/23 06/19/2 5 History extended release polyethylene glycol 3350 17 gram 17 g PO DAILY 09/20/22 09/18/24 Hi story oral powder packet (Miralax) trazodone 50 mg tablet 50 mg PO QHS 09/20/22 09/18/24 His tory hydrochlorothiazide 25 mg tablet 25 mg PO DAILY 01/04/23 09/18/24 H istory budesonide 160 mcg-glycopyr 9 2 inh inhalation BID 07/04/2308/31 History mcg-formot 4.8 mcg/actuation HFA inhaler (Breztri Aerosphere) cartilage 40 mg-collagen II-boron 1 tab PO QHS 07/04/23 09/18/24 Hi story 5 mg-hyaluronate sod 3.3 mg tablet (Move Free Ultra Triple Action (boron)) cholecalciferol (vitamin D3) 1,250 1,250 mcg PO FR 07/04/23 5 History mcg (50,000 unit) capsule mecobalamin (vitamin B12) 5,000 5,000 mcg PO QHS 07/04/23 09/18/24 History mcg chewable tablet yfavybsr-pcjz-tosu 8 mg-folic 400 1 tab PO DAILY 07/04/23 09/18/24 History mcg-K 50 mcg-lutein 300 mcg tablet (Centrum Silver Women) atorvastatin 20 mg tablet 20 mg PO QHS #90 tabs 10/31/23 Rx ferrous sulfate 325 mg (65 mg 325 mg PO ONCE SUPPLEMENT 01/08/24 09/18/24 History iron) tablet dulaglutide 3 mg/0.5 mL 3 mg subcut QWEEK 01/13/24 5 History subcutaneous pen injector (Trulicity) loratadine 10 mg tablet 10 mg PO DAILY 01/13/24 09/18/24 H istory losartan 100 mg tablet 100 mg PO DAILY 01/13/24 09/18/24 History Bacillus coagulans 10 billion cell cell PO 09/18/24 09/18/24 Histor y capsule,delayed release (Probiotic (B. coagulans)) magnesium 200 mg tablet 400 mg PO QDAY 09/18/24 09/18/24 H istory vibegron 75 mg tablet (Gemtesa) 75 mg PO QDAY 09/18/24 09/18/24 Hi story Have you fallen in the past year?: Yes (August 2024 ) [facility] Medical History Tinnitus Loss of hearing MRSA infection Alcohol use Diabetes Ambulates with cane Low iron Anemia High cholesterol Dietary restriction History of ulceration GERD (gastroesophageal reflux disease) CPAP (continuous positive airway pressure) dependence Right hip pain Wears dentures Wears glasses Post-menopausal Anxiety Arthritis Excessive bleeding Back pain Syncope Gastric reflux Sleep apnea Smoker Asthma COPD (chronic obstructive pulmonary disease) Shortness of breath on exertion Chronic cough Leg cramps History of edema History of echocardiogram History of stress test Cardiology follow-up encounter Left rotator cuff tear Primary osteoarthritis, left shoulder Internal impingement of left shoulder Left shoulder pain Atherosclerotic h (more content not included)... Normal [facility] Magnetic resonance imaging r eportOrdered By: Azra Garcia on 09-10-2024 Study report [facility] Imaging Services [address] [place], [place] [address] Spine Lumbar (Routine) MR#: [id number] Acct: [id number] Name: DAPHNEY BENSON Rep #: [id number] : 1960 F 64 From: Rich Garcia MD PCP: ELENA Zhao, PROCTOLOGIST-C Status: REG CLI Study:Spine Lumbar (Routine) Date of Exam: 09/09/24 Exam# [id number] Ordering Dr: Bakari Adamson MD PROCEDURE: SPINE LUMBAR (ROUTINE) 09/09/2024 REASON FOR EXAM: RADICULOPATHY TECHNIQUE: Multiplanar and multisequence images were obtained without IV contrast administration. COMPARISON: Radiographs on 08/14/2024. FINDINGS: Moderate diffuse spondylosis. Moderate multilevel degenerative disc disease. There is normal signal intensity from the visualized bone marrow without evidence of replacement or acute fracture. The conus is unremarkable. Mildly exaggerated lumbar lordosis. The vertebral alignment is within normal limits. Evaluation of the individual levels revealed the following: L5-S1: There is mild diffuse disc bulge. Bilateral facet joint arthropathy. The spinal canal is not narrowed. There is no evidence of neural foramina narrowing. L4-5: There is grade 1 anterolisthesis measuring 3.7 mm. Mild diffuse disc bulge. Bilateral facet joint arthropathy and ligamentum flavum hypertrophy. The spinal canal is not narrowed. There is no evidence of neural foramina narrowing. L3-4: There is mild diffuse disc bulge. The spinal canal is not narrowed. There is mild bilateral neural foramina narrowing. L2-3: There is mild diffuse disc bulge. The spinal canal is not narrowed. There is mild bilateral neural foramina narrowing. L1-2: There is grade 1 anterolisthesis measuring 2.7 mm with mild diffuse disc bulge. The spinal canal is not narrowed. There is mild bilateral neural foramina narrowing. T12-L1: There is moderate diffuse disc bulge. The spinal canal is not narrowed. There is mild bilateral neural foramina narrowing. T11-T12: There is moderate diffuse disc bulge. The spinal canal is not narrowed.There is mild bilateral neural foramina narrowing. Normal visualized paraspinous soft tissue structures. Well-defined 1.2 cm Tarlov sacral nerve root cyst at S2 level. MRI/Spine Lumbar (Routine) IMPRESSION: Spondylosis. Degenerative disc disease. [facility] CC: [facility] PROCTOLOGIST-C Yvrose Carreon; Dr. Edson Adamson MD ~ Motorcycle Assembler: Signed [facility] Spine Lumbar (Routine)on Spine Lumbar (Routine) [facility] Imaging Services [address] [place], [place] [id number] Spine Lumbar (Routine) MR#: [id number] Acct: [id number] Name: DAPHNEY BENSON Rep #: [id number] : 1960 F 64 From: Azra oguld MD PCP: ELENA Zhao, PROCTOLOGIST-C Status: REG CLI Study: Spine Lumbar (Routine) Date of Exam: 09/09/24 Exam# [id number] Ordering Dr: Edson Adamson MD PROCEDURE: SPINE LUMBAR (ROUTINE) 09/09/2024 REASON FOR EXAM: RADICULOPATHY TECHNIQUE: Multiplanar and multisequence images were obtained without IV contrast administration. COMPARISON: Radiographs on 08/14/2024. FINDINGS: Moderate diffuse spondylosis. Moderate multilevel degenerative disc disease. There is normal signal intensity from the visualized bone marrow without evidence of replacement or acute fracture. The conus is unremarkable. Mildly exaggerated lumbar lordosis. The vertebral alignment is within normal limits. Evaluation of the individual levels revealed the following: L5-S1: There is mild diffuse disc bulge. Bilateral facet joint arthropathy. The spinal canal is not narrowed. There is no evidence of neural foramina narrowing. L4-5: There is grade 1 anterolisthesis measuring 3.7 mm. Mild diffuse disc bulge. Bilateral facet joint arthropathy and ligamentum flavum hypertrophy. The spinal canal is not narrowed. There is no evidence of neural foramina narrowing. L3-4: There is mild diffuse disc bulge. The spinal canal is not narrowed. There is mild bilateral neural foramina narrowing. L2-3: There is mild diffuse disc bulge. The spinal canal is not narrowed. There is mild bilateral neural foramina narrowing. L1-2: There is grade 1 anterolisthesis measuring 2.7 mm with mild diffuse disc bulge. The spinal canal is not narrowed. There is mild bilateral neural foramina narrowing. T12-L1: There is moderate diffuse disc bulge. The spinal canal is not narrowed. There is mild bilateral neural foramina narrowing. T11-T12: There is moderate diffuse disc bulge. The spinal canal is not narrowed. There is mild bilateral neural foramina narrowing. Normal visualized paraspinous soft tissue structures. Well-defined 1.2 cm Tarlov sacral nerve root cyst at S2 level. MRI/Spine Lumbar (Routine) IMPRESSION: Spondylosis. Degenerative disc disease. Reading Location[facility] CC: [facility] PROCTOLOGIST-Shannan Carreon; Dr. Edson Adamson MD Motorcycle Assembler: Signed Normal [facility] Inital Evaluation (1) - PTon 08-26-2024 Inital Evaluation (1) - PT [facility] Physical Therapy [facility] [address] [place] [address] [address] [place] [address] / REHABILITATION SERVICES INITIAL EVALUATION MR#: [id number] Acct: [id number] Name: DAPHNEY BENSON Rep #: [id number] : 1960 64 From: Fabienne WALKER Referring Dr.: SENTHIL Suazo Status: REG RCR Insurance: [employer] INSURANCE Patient's Visit Information Visit Information Visit Information: DAPHNEY BENSON is a 64 year old F referred to Physical Therapy by SENTHIL Suazo with a diagnosis of LBP, L hip pain, L knee DDD. 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 Pt had L knee pain and she went to orthopedic and they did cortisone shot and now she is walking better. Last week she feels like her hip is not attached. Her upper parts of her legs are weak and tire. She just wants to be able to do what she needs to do. She is not having any back pain but if she were to walk a little she would probably feel it. Right now she has hip and knee pain. Her thighs is what bothers her muscle adams. Pain L hip pain: Pain Intensity (Out of 10): 4 R hip pain: Pain Intensity (Out of 10): 0 L knee pain: Pain Intensity (Out of 10): 5 R knee pain: Pain Intensity (Out of 10): 4 Objective Objective: Gait: Walks with short stride, straight legs, no heel to toe gait pattern, no trunk rotation or arm swing. LE MMT: R hip flex 10.7 and L 9 R knee ext 18.8 and L 18.6 R knee flex 9.6 and L 9.8 R hip and 18 and L 13.6 Bridges: able to get up 3/4 normal ROM with some increase pain Heel and toe raises: able to raise heels and toes using a hand rail with some increase pain up the back of her leg Trunk AROM: flexion 75%, Ext 50%, SB B 75%, Rot B 25% R knee AROM -8 to 115 L knee AROM -10 to 105 PROM R hip: approx to 110 degrees flexion with minimal hip IR with increase pain. No pain with ER PROM L hip: aprrox 120 degrees flexion with minimal hip IR with increase pain. Slight pain with ER Balance/Special Test Scores Oswestry Low Back Score: 23 Goals Goal 1:: I HEP Goal Time Frame: 6-8 Weeks Goal 2:: Be able to walk back to the treatment area with increased stride length and more heel to toe gait pattern Goal Time Frame: 6-8 Weeks Goal 3:: Decrease B hip and knee pain by 50% with gait Goal Time Frame: 6-8 Weeks Goal 4:: Increase LE strength (at the time of the eval: LE MMT: R hip flex 10.7 and L 9 R knee ext 18.8 and L 18.6 R knee flex 9.6 and L 9.8 R hip and 18 and L 13.6) Goal Time Frame: 6-8 Weeks Rehabilitation Potential Rehabilitation Potential: Good Anticipated Interventions Patient/Client Instruction: Educate patient on: Condition and Plan of Care For the Purpose of:: To decrease pain, To increase ROM, To improve nutrient delivery to tissue, To improve muscle performance and motor function, To improve ability to perform ADL's, To increase tolerance to activity/condition/position, To improve performance and independence with ADL's, To decrease level of supervision to perform tasks, To improve ability of physical actions for home/community/work/leisure, To improve gait and locomotor functions, To improve health of tissue, To decrease soft tissue restriction, To increase flexibility/ROM and To improve endurance Therapeutic Exercise to Include: Strength training, Postural training, Flexibilty training, Gait and locomotor training, Active ROM and Dynamic Lumbar Stabilization For the Purpose of:: To decrease pain, To decrease swelling/inflammation, To increase ROM, To improve nutrient delivery to tissue, To improve muscle performance and motor function, To improve ability to perform ADL's, To increase tolerance to activity/condition/position, To improve ability of physical actions for home/community/work/leisure, To improve gait and locomotor functions, To improve health of tissue, To decrease soft tissue restriction and To increase flexibility/ROM Functional Training to Include: Gait training For the Purpose of:: To improve gait and locomotor functions Manual Therapy Techniques to Include: Passive ROM For the Purpose of:: To increase ROM and To improve muscle performance and motor function Text: Thank you for the opportunity to evaluate your patient. For Medicare and Medicare HMO plans, please review the plan of care and approve it. It will need to be FAXED BACK to us at [phone] for Medicare purposes. For Medicare only, by signing this I certify the plan of care. Please let me know if there are questions or concerns regarding this plan of (more content not included)... Normal [facility] Orthopedic Visit Reporton Orthopedic Visit Report [facility] [address] [place] [address] OFFICE VISIT Date of Service: 08/22/24 MR#: [id number] Acct: [id number] Name: DAPHNEY BENSON Rep #: [id number] : 1960 Provider: SENTHIL jerome Age/Sex: 64/F Location: [facility] [place] Status: Signed with Addenda ADDENDUM by SENTHIL Amaral on 08/22/24 at 1127 Assessment and Plan Assessment and Plan (1) Localized osteoarthritis of left knee: Status: Acute (2) Left knee DJD: Status: Acute Qualifiers: Osteoarthritis type: primary Qualified Code(s): M17.12 - Unilateral primary osteoarthritis, left knee Orders: Orders Ortho Injections Today M17.12 - Unilateral primary osteoarthritis, left knee Medications: New Kenalog (triamcinolone acetonide) 40 mg intra-articular ONCE 1 mL 0RF NS M17.12 - Unilateral primary osteoarthritis, left knee Comments Comments: We discussed potential adverse effects from cortisone injection with elevating blood sugars. We discussed at least once daily blood sugar checks over the next 10 to 14 days, increase clear liquid intake, avoid added sugars and sweeteners, limit carbohydrate servings. If sugars read over 200, contact your PCP. Reviewed hemoglobin A1c's trends over time between 6.2 and 6.9 between 2019 and 2023. Patient states last reading was less than 7. Kidney function from 04/08/2024 within normal limits. 08/22/24 1127 Date Amaral,Christiana PROCTOLOGIST-C cc: * Signed Intake Vital Signs 08/13/24 11:11 08/22/24 10:48 Height 5 ft 1 in 5 ft 1 in Weight: 215 lb BMI 40.6 Intake Visit Reasons: LEFT KNEE Chief Complaint: left knee Is patient in pain?: Yes (left knee) Pain scale (1-10): 7 Allergies isoniazid Allergy (Verified 08/22/24 10:23) Other Medications ???Medication ???Instructions ???Recorded ???Confirmed ???Type metformin 1,000 mg tablet 1,000 mg PO BID DM 04/14/20 History montelukast 10 mg tablet 10 mg PO DAILY 04/14/20 08/22/24 H istory omeprazole 20 mg capsule,delayed 20 mg PO QHS GERD 04/14/20 5 History release fluticasone propionate 50 2 spray intranasal DAILY Wheezing 08/03/21 08/22/24 History mcg/actuation nasal spray,suspension mometasone-formoterol HFA 200 2 inh inhalation PRN Wheezing 07/2208/22/24 History mcg-5 mcg/actuation aerosol inhaler [employer] 1 tablet PO DAILY 08/11/21 5 History compress.stocking,knee,reg,l rg #2 ea 09/01/22 08/22/24 Rx (Relief Knee Close Toe Stocking) compression socks, large #2 ea 09/01/22 08/22/24 Rx bupropion HCl 150 mg 24 hr tablet, 150 mg PO DAILY 09/20/22 5 History extended release polyethylene glycol 3350 17 gram 17 g PO DAILY 09/20/22 08/22/24 Hi story oral powder packet (Miralax) trazodone 50 mg tablet 50 mg PO QHS 09/20/22 08/22/24 His tory hydrochlorothiazide 25 mg tablet 25 mg PO DAILY 01/04/23 08/22/24 H istory budesonide 160 mcg-glycopyr 9 2 inh inhalation BID 07/04/2308/01 History mcg-formot 4.8 mcg/actuation HFA inhaler (Breztri Aerosphere) cartilage 40 mg-collagen II-boron 1 tab PO QHS 04/03/24 05/23/25 Hi story 5 mg-hyaluronate sod 3.3 mg tablet (Move Free Ultra Triple Action (boron)) cholecalciferol (vitamin D3) 1,250 1,250 mcg PO FR 07/04/23 5 History mcg (50,000 unit) capsule mecobalamin (vitamin B12) 5,000 5,000 mcg PO QHS 07/04/23 08/22/24 History mcg chewable tablet iwktletp-vlus-qeib 8 mg-folic 400 1 tab PO DAILY 07/04/23 08/22/24 History mcg-K 50 mcg-lutein 300 mcg tablet (Centrum Silver Women) atorvastatin 20 mg tablet 20 mg PO QHS #90 tabs 10/31/23 Rx ferrous sulfate 325 mg (65 mg 325 mg PO ONCE SUPPLEMENT 01/08/24 08/22/24 History iron) tablet dulaglutide 3 mg/0.5 mL 3 mg subcut QWEEK 01/13/24 5 History subcutaneous pen injector (Trulicity) loratadine 10 mg tablet 10 mg PO DAILY 01/13/24 08/22/24 H istory losartan 100 mg tablet 100 mg PO DAILY 01/13/24 08/22/24 History mirabegron 50 mg tablet,extended 50 mg PO DAILY 01/13/24 08/22/24 H istory release 24 hr (Myrbetriq) Have you fallen in the past year?: No [facility] Medical History Tinnitus Loss of hearing MRSA infection Alcohol use Diabetes Ambulates with cane Low iron Anemia High cholesterol Dietary restriction History of ulceration GERD (gastroesophageal reflux disease) CPAP (continuous positive airway pressure) dependence Right hip pain Wears dentures Wears glasses Post-menopausal Anxiety Arthritis Excessive bleeding Back pain Syncope Gastric reflux Sleep apnea Smoker Asthma COPD (chronic obstructive pulm (more content not included)... Normal [facility] HIP, UNI W/ Pelvis 2-3 Views on 08-14-2024 HIP, UNI W/ Pelvis 2-3 Views [facility] Imaging Services [address] [place] [address] HIP, UNI W/ Pelvis 2-3 Views MR#: [id number] Acct: [id number] Name: DAPHNEY BENSON Rep #: [id number] : 1960 F 64 From: Antonio Felix MD PCP: ELENA Zhao, PROCTOLOGISTIsacC Status: DEP AMB Study: HIP, UNI W/ Pelvis 2-3 Views Date of Exam: Exam# [id number] Ordering Dr: Christiana Amaral PROCEDURE: HIP, UNI W/ PELVIS 2-3 VIEWS 08/14/2024 REASON FOR EXAM: PAIN X 3 MONTHS, NKI TECHNIQUE: AP pelvis and two-view left hip, 3 total images COMPARISON: 10/16/2022 FINDINGS: No fracture or dislocation. The hip joints appear within limits. Lower lumbar degenerative changes. Bilateral symmetric appearing SI joint degenerative changes again suggested, unchanged. Pubic symphysis appears within limits. RAD/HIP, UNI W/ Pelvis 2-3 Views IMPRESSION: There are degenerative changes of the lumbosacral spine as above. Reading Location: [id number] CC: PROCTOLOGIST-C Christiana Amaral; [facility] PROCTOLOGIST-Shannan Carreon Motorcycle Assembler: Signed Normal [facility] L/S Spine Min 4 Views07-31 L/S Spine Min 4 Views [facility] Imaging Services [address] [place] [id number] L/S Spine Min 4 Views MR#: [id number] Acct: [id number] Name: DAPHNEY BENSON Rep #: [id number] : 1960 F 64 From: Antonio Felix MD PCP: ELENA Zhao, PROCTOLOGIST-C Status: DEP AMB Study: L/S Spine Min 4 Views Date of Exam: 08/14/24 Exam# [id number] Ordering Dr: Christiana Amaral PROCEDURE: L/S SPINE MIN 4 VIEWS 08/14/2024 REASON FOR EXAM: LOW BACK/POSTERIOR HIP AND BUTTOCK PAIN TECHNIQUE: Four views, AP, lateral and flexion-extension COMPARISON: None available FINDINGS: 5 gow-isy-goawmai lumbar vertebral body types identified. No fracture. Very mild anterolisthesis L4 on L5. No evidence of instability. T12-L1 severe appearing disc space narrowing and degenerative endplate changes L1-2 gulh-ml-ezajqjlu disc space narrowing and degenerative endplate changes L2-3 mild disc space narrowing Multilevel lower lumbar facet degenerative changes Status post cholecystectomy RAD/L/S Spine Min 4 Views IMPRESSION: Spondylosis/discogenic change and spondylolisthesis as above. Reading Location: [id number] CC: SENTHIL Amaral; [facility] SENTHIL Carreon Motorcycle Assembler: Signed Normal [facility] Orthopedic Visit Reporton Orthopedic Visit Report [facility] [address] [place] [address] [address] [place] [address] OFFICE VISIT Date of Service: 08/14/24 MR#: [id number] Acct: [id number] Name: DAPHNEY BENSON Rep #: [id number] : 1960 Provider: SENTHIL jerome Age/Sex: 64/F Location: [facility] Status: Signed Intake Vital Signs 07/15/24 10:44 08/13/24 11:11 Height 5 ft 1 in 5 ft 1 in Intake Visit Reasons: LEFT HIP Allergies isoniazid Allergy (Verified 08/14/24 09:37) Other Medications ???Medication ???Instructions ???Recorded ???Confirmed ???Type metformin 1,000 mg tablet 1,000 mg PO BID DM 04/14/20 History montelukast 10 mg tablet 10 mg PO DAILY 04/14/20 08/14/24 H istory omeprazole 20 mg capsule,delayed 20 mg PO QHS GERD 04/14/20 5 History release sertraline 100 mg tablet 150 mg PO DAILY 04/14/20 08/14/24 History fluticasone propionate 50 2 spray intranasal DAILY Wheezing 08/03/21 08/14/24 History mcg/actuation nasal spray,suspension mometasone-formoterol HFA 200 2 inh inhalation PRN Wheezing 05/0 07/2208/14/24 History mcg-5 mcg/actuation aerosol inhaler [employer] 1 tablet PO DAILY 08/11/21 5 History compress.stocking,knee,reg,l rg #2 ea 09/01/22 08/14/24 Rx (Relief Knee Close Toe Stocking) compression socks, large #2 ea 09/01/22 08/14/24 Rx bupropion HCl 150 mg 24 hr tablet, 150 mg PO DAILY 09/20/22 5 History extended release polyethylene glycol 3350 17 gram 17 g PO DAILY 09/20/22 08/14/24 Hi story oral powder packet (Miralax) trazodone 50 mg tablet 50 mg PO QHS 09/20/22 08/14/24 His tory hydrochlorothiazide 25 mg tablet 25 mg PO DAILY 01/04/23 08/14/24 H istory budesonide 160 mcg-glycopyr 9 2 inh inhalation BID 07/04/2307/31 History mcg-formot 4.8 mcg/actuation HFA inhaler (Breztri Aerosphere) cartilage 40 mg-collagen II-boron 1 tab PO QHS 07/04/23 08/14/24 Hi story 5 mg-hyaluronate sod 3.3 mg tablet (Move Free Ultra Triple Action (boron)) cholecalciferol (vitamin D3) 1,250 1,250 mcg PO FR 07/04/23 5 History mcg (50,000 unit) capsule mecobalamin (vitamin B12) 5,000 5,000 mcg PO QHS 07/04/23 08/14/24 History mcg chewable tablet lublpjsl-nifb-dqwn 8 mg-folic 400 1 tab PO DAILY 07/04/23 08/14/24 History mcg-K 50 mcg-lutein 300 mcg tablet (Centrum Silver Women) atorvastatin 20 mg tablet 20 mg PO QHS #90 tabs 10/31/23 Rx ferrous sulfate 325 mg (65 mg 325 mg PO ONCE SUPPLEMENT 01/08/24 08/14/24 History iron) tablet dulaglutide 3 mg/0.5 mL 3 mg subcut QWEEK 01/13/24 5 History subcutaneous pen injector (Trulicity) loratadine 10 mg tablet 10 mg PO DAILY 01/13/24 08/14/24 H istory losartan 100 mg tablet 100 mg PO DAILY 10/13/24 05/15/25 History mirabegron 50 mg tablet,extended 50 mg PO DAILY 01/13/24 08/14/24 H istory release 24 hr (Myrbetriq) aspirin 325 mg tablet 325 mg PO BREAKFAST #30 tabs 01/1408/14/24 Rx cefdinir 300 mg capsule 300 mg PO BID #10 caps 01/15/24 Rx azithromycin 250 mg tablet See Rx Instructions PO .COMPLEX #6 03/25/24 08/14/24 Rx tabs Have you fallen in the past year?: No PFSH Medical History Tinnitus Loss of hearing MRSA infection Alcohol use Diabetes Ambulates with cane Low iron Anemia High cholesterol Dietary restriction History of ulceration GERD (gastroesophageal reflux disease) CPAP (continuous positive airway pressure) dependence Right hip pain Wears dentures Wears glasses Post-menopausal Anxiety Arthritis Excessive bleeding Back pain Syncope Gastric reflux Sleep apnea Smoker Asthma COPD (chronic obstructive pulmonary disease) Shortness of breath on exertion Chronic cough Leg cramps History of edema History of echocardiogram History of stress test Cardiology follow-up encounter Left rotator cuff tear Primary osteoarthritis, left shoulder Internal impingement of left shoulder Left shoulder pain Atherosclerotic heart disease of [place] coronary artery without angina pectoris History of left heart catheterization (LHC) ( 09/27/21) Abnormal stress test Bronchitis Palpitations Type 2 diabetes mellitus Diabetes COVID-19 MRSA (methicillin resistant staph aureus) culture positive Hypertension Vertigo Fracture, tibial plateau Depression Surgical History History of esophagogastroduodenoscopy (EGD) History of colonoscopy History of shoulder surgery History of cardiac catheterization Hx of eye surgery Hx laparoscopic cholecystectomy Hx of section Hx of right knee surgery H/O: hysterectomy Family History (Reviewed (more content not included)... Normal [facility] Orthopedic Visit Reporton Orthopedic Visit Report [facility] [address] [place] [address] OFFICE VISIT Date of Service: 07/15/24 MR#: [id number] Acct: [id number] Name: DAPHNEY BENSON Rep #: [id number] : 1960 Provider: Dr. Silverio dunne MD Age/Sex: 64/F Location: [facility] [place] Status: Signed Intake Vital Signs 04/25/24 11:58 07/15/24 10:44 Height 5 ft 1 in 5 ft 1 in Weight: 224 lb 220 lb BMI 42.3 41.5 BP 124/78 H Position Sitting Pulse 76 Temp 98.6 F Temp Source Oral Pulse Oximetry (%) 98 Oxygen Delivery Method room air Intake Visit Reasons: LEFT SHOULDER Chief Complaint: 1 year post op Accompanied by: Self Is patient in pain?: No Allergies isoniazid Allergy (Verified 07/15/24 10:45) Other Medications ???Medication ???Instructions ???Recorded ???Confirmed ???Type metformin 1,000 mg tablet 1,000 mg PO BID DM 04/14/20 History montelukast 10 mg tablet 10 mg PO DAILY 04/14/20 07/15/24 H istory omeprazole 20 mg capsule,delayed 20 mg PO QHS GERD 04/14/20 5 History release sertraline 100 mg tablet 150 mg PO DAILY 04/14/20 07/15/24 History fluticasone propionate 50 2 spray intranasal DAILY Wheezing 08/03/21 07/15/24 History mcg/actuation nasal spray,suspension mometasone-formoterol HFA 200 2 inh inhalation PRN Wheezing 05/0 07/2207/15/24 History mcg-5 mcg/actuation aerosol inhaler DietBetter health 1 tablet PO DAILY 08/11/21 5 History compress.stocking,knee,reg,l rg #2 ea 09/01/22 07/15/24 Rx (Relief Knee Close Toe Stocking) compression socks, large #2 ea 09/01/22 07/15/24 Rx bupropion HCl 150 mg 24 hr tablet, 150 mg PO DAILY 09/20/22 5 History extended release polyethylene glycol 3350 17 gram 17 g PO DAILY 09/20/22 07/15/24 Hi story oral powder packet (Miralax) trazodone 50 mg tablet 50 mg PO QHS 09/20/22 07/15/24 His tory hydrochlorothiazide 25 mg tablet 25 mg PO DAILY 01/04/23 07/15/24 H istory budesonide 160 mcg-glycopyr 9 2 inh inhalation BID 07/04/2307/01 History mcg-formot 4.8 mcg/actuation HFA inhaler (Breztri Aerosphere) cartilage 40 mg-collagen II-boron 1 tab PO QHS 07/04/23 07/15/24 Hi story 5 mg-hyaluronate sod 3.3 mg tablet (Move Free Ultra Triple Action (boron)) cholecalciferol (vitamin D3) 1,250 1,250 mcg PO FR 07/04/23 5 History mcg (50,000 unit) capsule mecobalamin (vitamin B12) 5,000 5,000 mcg PO QHS 07/04/23 07/15/24 History mcg chewable tablet ubqmvyam-ciqc-vbrx 8 mg-folic 400 1 tab PO DAILY 07/04/23 07/15/24 History mcg-K 50 mcg-lutein 300 mcg tablet (Centrum Silver Women) atorvastatin 20 mg tablet 20 mg PO QHS #90 tabs 10/31/23 Rx ferrous sulfate 325 mg (65 mg 325 mg PO ONCE SUPPLEMENT 01/08/24 07/15/24 History iron) tablet dulaglutide 3 mg/0.5 mL 3 mg subcut QWEEK 01/13/24 5 History subcutaneous pen injector (Trulicity) loratadine 10 mg tablet 10 mg PO DAILY 01/13/24 07/15/24 H istory losartan 100 mg tablet 100 mg PO DAILY 01/13/24 07/15/24 History mirabegron 50 mg tablet,extended 50 mg PO DAILY 01/13/24 07/15/24 H istory release 24 hr (Myrbetriq) aspirin 325 mg tablet 325 mg PO BREAKFAST #30 tabs 01/1407/15/24 Rx cefdinir 300 mg capsule 300 mg PO BID #10 caps 01/15/24 Rx azithromycin 250 mg tablet See Rx Instructions PO .COMPLEX #6 03/25/24 07/15/24 Rx tabs Have you fallen in the past year?: No [facility] Medical History Tinnitus Loss of hearing MRSA infection Alcohol use Diabetes Ambulates with cane Low iron Anemia High cholesterol Dietary restriction History of ulceration GERD (gastroesophageal reflux disease) CPAP (continuous positive airway pressure) dependence Right hip pain Wears dentures Wears glasses Post-menopausal Anxiety Arthritis Excessive bleeding Back pain Syncope Gastric reflux Sleep apnea Smoker Asthma COPD (chronic obstructive pulmonary disease) Shortness of breath on exertion Chronic cough Leg cramps History of edema History of echocardiogram History of stress test Cardiology follow-up encounter Left rotator cuff tear Primary osteoarthritis, left shoulder Internal impingement of left shoulder Left shoulder pain Atherosclerotic heart disease of [place] coronary artery without angina pectoris History of left heart catheterization (LHC) ( 09/27/21) Abnormal stress test Bronchitis Palpitations Type 2 diabetes mellitus Diabetes COVID-19 MRSA (methicillin resistant staph aureus) culture positive Hypertension Vertigo Fracture, tibial plateau Depression Surgical History ... Normal [facility] Shoulder min 2 Viewson 07-15 Shoulder min 2 Views [facility] [address] [place], [place] [address] Shoulder min 2 Views MR#: [id number] Acct: [id number] Name: DAPHNEY BENSON Rep #: [id number] : 1960 F 64 From: Azra gould MD PCP: ELENA Zhao, PROCTOLOGIST-C Status: DEP AMB Study: Shoulder min 2 Views Date of Exam: 07/15/24 Exam# [id number] Ordering Dr: Silverio Street MD PROCEDURE: SHOULDER MIN 2 VIEWS 07/15/2024 REASON FOR EXAM: 1 YEAR FOLLOW UP TECHNIQUE: THREE VIEWS OF THE LEFT SHOULDER. COMPARISON: None. FINDINGS: Mild osteopenia. Left shoulder reverse arthroplasty with unremarkable metallic prosthesis. Moderate degenerative joint disease of the acromioclavicular joint. No fracture or dislocation is seen. No lytic or blastic bone lesion is identified. RAD/Shoulder min 2 Views IMPRESSION: No radiographic evidence of an acute bone abnormality. Reading Location: [place] [address] CC: [facility] PROCTOLOGIST-C Yvrose Carreon; Dr. Silverio Street MD Motorcycle Assembler: Signed Normal [facility] Knee 3 Viewson 04-25-2024 Knee 3 Views [facility] Imaging Services [address] [place], [place] [address] Knee 3 Views MR#: [id number] Acct: [id number] Name: DAPHNEY BENSON Rep #: [id number] : 1960 F 64 From: Christopher nance MD PCP: ELENA Zhao, PROCTOLOGIST-C Status: REG CLI Study: Knee 3 Views Date of Exam: 04/25/24 Exam# [id number] Ordering Dr: Nicolas Wen PA :[id number] STUDY: X-RAY - LEFT KNEE REASON FOR EXAM: Female, 64 years old. Knee pain. TECHNIQUE: 4 view(s) of the knee. COMPARISON: None. FINDINGS: Degenerative spurs are seen along the medial femoral condyle and medial tibial plateau. Normal visualized proximal tibia and fibula. Normal proximal tibiofibular articulation. There is severe degenerative arthrosis of the medial femorotibial compartment with severe joint space narrowing. Normal lateral femorotibial compartment. There is moderate degenerative arthrosis of the patellofemoral articulation. The soft tissue structures are unremarkable. RAD/Knee 3 Views IMPRESSION: Degenerative arthrosis. Electronically Signed: Christopher Romeo MD at 11:57 EST , CC: [facility] PROCTOLOGIST-C Yvrose Carreon; ISAI Gaitan Motorcycle Assembler: Signed Normal [facility] Urgent Care Visit Reporton 0 04-25-2024 Urgent Care Visit Report [facility] [address] [place] [address] OFFICE VISIT Date of Service: 04/25/24 MR#: [id number] Acct: [id number] Name: DAPHNEY BENSON Rep #: [id number] : 1960 Provider: ISAI Gaitan Age/Sex: 64/F Location: [facility] [place] Status: Signed Intake Vital Signs 03/25/24 13:13 04/25/24 11:58 Height 5 ft 1 in 5 ft 1 in Weight: 224 lb 2 oz 224 lb BMI 42.3 42.3 BP 120/80 124/78 H Position Sitting Sitting Pulse 111 H 76 Temp 98.5 F 98.6 F Temp Source Oral Oral Pulse Oximetry (%) 91 98 Oxygen Delivery Method room air room air Intake Visit Reasons: L KNEE PAIN Chief Complaint: Left knee pain Is patient in pain?: Yes (when standing ) Pain scale (1-10): 7 Allergies isoniazid Allergy (Verified 03/25/24 13:28) Other Medications ???Medication ???Instructions ???Recorded ???Confirmed ???Type metformin 1,000 mg tablet 1,000 mg PO BID DM 04/14/20 04/25/24 History montelukast 10 mg tablet 10 mg PO DAILY 04/14/20 04/25/24 History omeprazole 20 mg capsule,delayed 20 mg PO QHS GERD 04/14/20 04/25/24 History release sertraline 100 mg tablet 150 mg PO DAILY 04/14/20 04/25/24 History fluticasone propionate 50 2 spray intranasal DAILY Wheezing 08/03/21 04/25/24 History mcg/actuation nasal spray,suspension mometasone-formoterol HFA 200 2 inh inhalation PRN Wheezing 08/03/21 04/25/24 History mcg-5 mcg/actuation aerosol inhaler Brain health 1 tablet PO DAILY 08/11/21 04/25/24 History compress.stocking,knee,reg,l rg #2 ea 09/01/22 04/25/24 Rx (Relief Knee Close Toe Stocking) compression socks, large #2 ea 09/01/22 04/25/24 Rx bupropion HCl 150 mg 24 hr tablet, 150 mg PO DAILY 09/20/22 04/25/24 History extended release polyethylene glycol 3350 17 gram 17 g PO DAILY 09/20/22 04/25/24 History oral powder packet (Miralax) trazodone 50 mg tablet 50 mg PO QHS 09/20/22 04/25/24 History hydrochlorothiazide 25 mg tablet 25 mg PO DAILY 01/04/23 04/25/24 History budesonide 160 mcg-glycopyr 9 2 inh inhalation BID 07/04/23 04/25/24 History mcg-formot 4.8 mcg/actuation HFA inhaler (Breztri Aerosphere) cartilage 40 mg-collagen II-boron 1 tab PO QHS 07/04/23 04/25/24 History 5 mg-hyaluronate sod 3.3 mg tablet (Move Free Ultra Triple Action (boron)) cholecalciferol (vitamin D3) 1,250 1,250 mcg PO FR 07/04/23 04/25/24 History mcg (50,000 unit) capsule mecobalamin (vitamin B12) 5,000 5,000 mcg PO QHS 07/04/23 04/25/24 History mcg chewable tablet zkeiwmlo-nfen-jume 8 mg-folic 400 1 tab PO DAILY 07/04/23 04/25/24 History mcg-K 50 mcg-lutein 300 mcg tablet (Centrum Silver Women) atorvastatin 20 mg tablet 20 mg PO QHS #90 tabs 10/31/23 04/25/24 Rx ferrous sulfate 325 mg (65 mg 325 mg PO ONCE SUPPLEMENT 01/08/24 04/25/24 History iron) tablet dulaglutide 3 mg/0.5 mL 3 mg subcut QWEEK 01/13/24 04/25/24 History subcutaneous pen injector (Trulicity) loratadine 10 mg tablet 10 mg PO DAILY 01/13/24 04/25/24 History losartan 100 mg tablet 100 mg PO DAILY 01/13/24 04/25/24 History mirabegron 50 mg tablet,extended 50 mg PO DAILY 01/13/24 04/25/24 History release 24 hr (Myrbetriq) aspirin 325 mg tablet 325 mg PO BREAKFAST #30 tabs 01/15/24 04/25/24 Rx cefdinir 300 mg capsule 300 mg PO BID #10 caps 01/15/24 04/25/24 Rx azithromycin 250 mg tablet See Rx Instructions PO .COMPLEX #6 03/25/24 04/25/24 Rx tabs methylprednisolone 4 mg tablets in 4 mg PO PER PKG DIR 6 days #21 tabs 01/24/25 01/24/25 Rx a dose pack (Medrol (Chin)) Have you fallen in the past year?: Yes Nurse's Note: Patient here for Left knee pain. Patient states this has been going on since yesterday. Patient missed a step and her feet hit her butt. Patient states she only has pain with it when she standing on it. Patient hasn't tried heat or ice. [facility] Medical History Tinnitus Loss of hearing MRSA infection Alcohol use Diabetes Ambulates with cane Low iron Anemia High cholesterol Dietary restriction History of ulceration GERD (gastroesophageal reflux disease) CPAP (continuous positive airway pressure) dependence Right hip pain Wears dentures Wears glasses Post-menopausal Anxiety Arthritis Excessive bleeding Back pain Syncope Gastric reflux Sleep apnea Smoker Asthma COPD (chronic obstructive pulmonary disease) Shortness of breath on exertion Chronic cough Leg cramps History of edema History of echocardiogram History of stress test Cardiology follow-up encounter Left rotator cuff tear Primary osteoarthritis, left shoulder Internal impingement of left shoulder Left shoulder pain Atherosclerotic heart disease of [place] coronary artery without angina pectoris History of (more content not included)... Normal [facility] CBC W/Diff, Automatedon 01-0 Absolute Lymph 1.70 X10 3/uL Normal 0.83-4.51 [facility] Comment on above: Performed By: #### L 500.4050, L501.9520, L502.0500, L100.0100, L500.4100 ####[facility] [address] [place], [place], [phone] Absolute Neut 6.1 X10 3/uL Normal 2.0-7.7 [facility] Comment on above: Performed By: #### L 500.4050, L501.9520, L502.0500, L100.0100, L500.4100 ####[facility] [address] [place], [address] Basophils/100 WBC (Bld) 0.4 % Normal 0-1 [facility] Comment on above: Performed By: #### L 500.4050, L501.9520, L502.0500, L100.0100, L500.4100 ####[facility] [address] [place], [address] Eosinophils/100 WBC (Bld) 1.7 % Normal 0-5 [facility] Comment on above: Performed By: #### L 500.4050, L501.9520, L502.0500, L100.0100, L500.4100 ####[facility] [address] [place], [address] Erythrocyte distribution width (RBC) [Ratio] 17.0 % High 11.6-14.6 [facility] Comment on above: Performed By: #### L 500.4050, L501.9520, L502.0500, L100.0100, L500.4100 ####[facility] [address] [place], [address] Hematocrit (Bld) [Volume fraction] 37.0 % Normal 37-47 [facility] Comment on above: Performed By: #### L 500.4050, L501.9520, L502.0500, L100.0100, L500.4100 ####[facility] [address] [place], [address] Hemoglobin (Bld) [Mass/Vol] 11.5 g/dL Low 12.0-15.0 [facility] Comment on above: Performed By: #### L 500.4050, L501.9520, L502.0500, L100.0100, L500.4100 ####[facility] [address] [place], [address] IG% 0.200 Normal 0.0-0.9 [facility] Comment on above: Result Comment: IG% - Immature Granulocytes (promyelocytes, myelocytes and metamyelocytes) > 1% indicates that a LEFT SHIFT is Present. Performed By: #### L 500.4050, L501.9520, L502.0500, L100.0100, L500.4100 ####[facility] [address] [place], [address] Lymphocytes/100 WBC (Bld) 20.2 % Normal 19-41 [facility] Comment on above: Performed By: #### L 500.4050, L501.9520, L502.0500, L100.0100, L500.4100 ####[facility] [address] [place], [address] MCH (RBC) [Entitic mass] 25.7 pg Low 27.0-32.0 [facility] Comment on above: Performed By: #### L 500.4050, L501.9520, L502.0500, L100.0100, L500.4100 ####[facility] [address] [place], [address] MCHC (RBC) [Mass/Vol] 31.1 g/dL Low 32-36 [facility] Comment on above: Performed By: #### L 500.4050, L501.9520, L502.0500, L100.0100, L500.4100 ####[facility] [address] [place], [address] MCV (RBC) [Entitic vol] 82.6 fL Normal 81-99 [facility] Comment on above: Performed By: #### L 500.4050, L501.9520, L502.0500, L100.0100, L500.4100 ####[facility] [address] [place], [address] Monocytes/100 WBC (Bld) 5.1 % Normal 0-10 [facility] Comment on above: Performed By: #### L 500.4050, L501.9520, L502.0500, L100.0100, L500.4100 ####[facility] [address] [place], [address] Neutrophils/100 WBC (Bld) 72.4 % High 47-70 [facility] Comment on above: Performed By: #### L 500.4050, L501.9520, L502.0500, L100.0100, L500.4100 ####[facility] [address] [place], [address] Nucleated RBC (Bld) [#/Vol] 0 10*3/uL Normal 0-5 [facility] Comment on above: Performed By: #### L 500.4050, L501.9520, L502.0500, L100.0100, L500.4100 ####[facility] [address] [place], [address] Platelet mean volume (Bld) [Entitic vol] 9.3 fL Normal 6.2-12.0 [facility] Comment on above: Performed By: #### L 500.4050, L501.9520, L502.0500, L100.0100, L500.4100 ####[facility] [address] [place], [address] Platelets (Bld) [#/Vol] 401 10*3/uL Normal 150-450 [facility] Comment on above: Performed By: #### L 500.4050, L501.9520, L502.0500, L100.0100, L500.4100 ####[facility] [address] [place], [address] RBC (Bld) [#/Vol] 4.48 10*6/uL Normal 4.2-5.4 [facility] Comment on above: Performed By: #### L 500.4050, L501.9520, L502.0500, L100.0100, L500.4100 ####[facility] [address] [place], [address] RDW SD 49.8 fl High 35.1-43.9 [facility] Comment on above: Performed By: #### L 500.4050, L501.9520, L502.0500, L100.0100, L500.4100 ####[facility] [address] [place], [address] WBC (Bld) [#/Vol] 8.4 10*3/uL Normal 4.4-11.0 [facility] Comment on above: Performed By: #### L 500.4050, L501.9520, L502.0500, L100.0100, L500.4100 ####[facility] [address] [place], [address] Comprehensive Metabolic Prof ilon 04-08-2024 Albumin [Mass/Vol] 3.6 g/dL Normal 3.2-5.0 [facility] Comment on above: Performed By: #### L 500.4050, L501.9520, L502.0500, L100.0100, L500.4100 ####[facility] [address] [place], [address] Albumin/Globulin [Mass ratio] 1.0 {ratio} Normal 0.9-2.4 [facility] Comment on above: Performed By: #### L 500.4050, L501.9520, L502.0500, L100.0100, L500.4100 ####[facility] [address] [place], [address] ALK P 100 U/L Normal 45-117 [facility] Comment on above: Performed By: #### L 500.4050, L501.9520, L502.0500, L100.0100, L500.4100 ####[facility] [address] [place], [address] ALT [Catalytic activity/Vol] 23 U/L Normal 13-56 [facility] Comment on above: Performed By: #### L 500.4050, L501.9520, L502.0500, L100.0100, L500.4100 ####[facility] [address] [place], [address] AST [Catalytic activity/Vol] 11 U/L Low 15-37 [facility] Comment on above: Performed By: #### L 500.4050, L501.9520, L502.0500, L100.0100, L500.4100 ####[facility] [address] [place], [address] Bilirubin [Mass/Vol] 0.40 mg/dL Normal 0.20-1.00 [facility] Comment on above: Result Comment: For patients on eltrombopag therapy, use of Dimension [place] TBIL is not recommended. Performed By: #### L 500.4050, L501.9520, L502.0500, L100.0100, L500.4100 ####[facility] [address] [place], [address] BUN/CRE 15.4 RATIO Normal 10-20 [facility] Comment on above: Performed By: #### L 500.4050, L501.9520, L502.0500, L100.0100, L500.4100 ####[facility] [address] [place], [address] CA,Total 9.7 mg/dL Normal 8.5-10.1 [facility] Comment on above: Performed By: #### L 500.4050, L501.9520, L502.0500, L100.0100, L500.4100 ####[facility] [address] [place], [address] Chloride [Moles/Vol] 101 mmol/L Normal 98-107 [facility] Comment on above: Performed By: #### L 500.4050, L501.9520, L502.0500, L100.0100, L500.4100 ####[facility] [address] [place], [address] CO2 [Moles/Vol] 28.0 mmol/L Normal 21.0-32.0 [facility] Comment on above: Performed By: #### L 500.4050, L501.9520, L502.0500, L100.0100, L500.4100 ####[facility] [address] [place], [address] Creatinine [Mass/Vol] 0.71 mg/dL Normal 0.55-1.02 [facility] Comment on above: Result Comment: The validity of the calculated GFR GFRAA in patients over 70 years has not been determined. Clinical correlation is essential. Performed By: #### L 500.4050, L501.9520, L502.0500, L100.0100, L500.4100 ####[facility] [address] [place], [address] EST GFR - AA 105 mL/min Normal >60 [facility] Comment on above: Result Comment: Afri can Cuban GFR Calc Performed By: #### L 500.4050, L501.9520, L502.0500, L100.0100, L500.4100 ####[facility] [address] [place], [address] GAP 5 Normal 5-15 [facility] Comment on above: Performed By: #### L 500.4050, L501.9520, L502.0500, L100.0100, L500.4100 ####[facility] [address] [place], [address] GFR/1.73 sq M.predicted among non-blacks MDRD (S/P/Bld) [Vol rate/Area] 87 mL/min/{1.73_m2} Normal >60 [facility] Comment on above: Result Comment: Non- GFR Calc Performed By: #### L 500.4050, L501.9520, L502.0500, L100.0100, L500.4100 ####[facility] [address] [place], [address] Globulin (S) [Mass/Vol] 3.5 g/dL Normal 2.2-4.2 [facility] Comment on above: Performed By: #### L 500.4050, L501.9520, L502.0500, L100.0100, L500.4100 ####[facility] [address] [place], [address] Glucose [Mass/Vol] 121 mg/dL High 74-106 [facility] Comment on above: Result Comment: Fast ing Glucose result from 100 to 125 mg/dL suggests IMPAIRED HOMEOSTASIS per A.D.A. criteria. Performed By: #### L 500.4050, L501.9520, L502.0500, L100.0100, L500.4100 ####[facility] [address] [place], [address] Potassium [Moles/Vol] 3.8 mmol/L Normal 3.5-5.1 [facility] Comment on above: Performed By: #### L 500.4050, L501.9520, L502.0500, L100.0100, L500.4100 ####[facility] [address] [place], [address] Sodium [Moles/Vol] 134 mmol/L Low 136-145 [facility] Comment on above: Performed By: #### L 500.4050, L501.9520, L502.0500, L100.0100, L500.4100 ####[facility] [address] [place], [address] T PROT 7.1 g/dL Normal 6.4-8.2 [facility] Comment on above: Performed By: #### L 500.4050, L501.9520, L502.0500, L100.0100, L500.4100 ####[facility] [address] [place], [address] Urea nitrogen [Mass/Vol] 11 mg/dL Normal 7-18 [facility] Comment on above: Performed By: #### L 500.4050, L501.9520, L502.0500, L100.0100, L500.4100 ####[facility] [address] [place], [address] Lipid Profileon 04-08-2024 Cholesterol [Mass/Vol] 124 mg/dL Normal 200 [facility] Comment on above: Result Comment: <200 mg/dL Desirable 200-240 mg/dL Borderline >240 mg/dL High Risk Performed By: #### L 500.4050, L501.9520, L502.0500, L100.0100, L500.4100 ####[facility] [address] [place], [address] Cholesterol in HDL [Mass/Vol] 66 mg/dL Normal [facility] Comment on above: Result Comment: The drugs N-Acetylcysteine and Metamizole may falsely depress this assay. Reference Range HDL <40 mg/dL Low HDL Cholesterol HDL >or= 60 mg/dL High HDL Cholesterol Performed By: #### L 500.4050, L501.9520, L502.0500, L100.0100, L500.4100 ####[facility] [address] [place], [address] Cholesterol in LDL [Mass/Vol] 42 mg/dL Normal 0-130 [facility] Comment on above: Performed By: #### L 500.4050, L501.9520, L502.0500, L100.0100, L500.4100 ####[facility] [address] [place], [address] Cholesterol in VLDL [Mass/Vol] 16 mg/dL Normal 5-40 [facility] Comment on above: Performed By: #### L 500.4050, L501.9520, L502.0500, L100.0100, L500.4100 ####[facility] [address] [place], [address] Triglyceride [Mass/Vol] 82 mg/dL Normal [facility] Comment on above: Result Comment: The drugs N-Acetylcysteine and Metamizole may falsely depress this assay. Serum Triglycerides Reference Interval Normal <150 mg/dL Borderline high 150 - 199 mg/dL High 200 - 499 mg/dL Very High > or = 500 mg/dL Performed By: #### L 500.4050, L501.9520, L502.0500, L100.0100, L500.4100 ####[facility] [address] [place], [address] Microalbumin,Random Urineon 04-08-2024 MICROALBUMIN,UR 12.7 mg/L Normal NO RANGE EST. [facility] Comment on above: Performed By: #### L 500.4050, L501.9520, L502.0500, L100.0100, L500.4100 ####[facility] [address] [place], [address] Thyroid Stim Hormone (TSH)on 04-08-2024 TSH 1.600 uIU/mL Normal 0.358-3.74 0 [facility] Comment on above: Performed By: #### L 500.4050, L501.9520, L502.0500, L100.0100, L500.4100 ####[facility] [address] [place], [address] Chest PA and Lateralon 03-25 Chest PA and Lateral [facility] [address] [place] [address] Chest PA and Lateral MR#: [id number] Acct: [id number] Name: DAPHNEY BENSON Arnaldo Rep #: [id number] : 1960 F 64 From: Haroon Bhandari MD PCP: [facility] Status: REG CLI Study: Chest PA and Lateral Date of Exam: 03/25/24 Exam# [id number] Ordering Dr: Nicolas Wen :[id number] EXAM: XR CHEST, 2 VIEWS CLINICAL INDICATION: ongoing cough TECHNIQUE: Frontal and lateral views of the chest. COMPARISON: 01/13/2024. FINDINGS: LUNGS AND PLEURAL SPACES: Unremarkable. No consolidation or edema. No pneumothorax. No effusion. HEART: Mild cardiomegaly. MEDIASTINUM: Central airways and mediastinal contour are unremarkable. BONES/JOINTS: Left metallic shoulder arthroplasty is intact. No acute fracture. SOFT TISSUES: Unremarkable. RAD/Chest PA and Lateral IMPRESSION: 1. No acute findings in the chest. 2. No significant interval change. 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 Normal [facility] Urgent Care Visit Reporton 1 05-26-2023 Urgent Care Visit Report [facility] [address], [address] [place] [address] OFFICE VISIT Date of Service: 03/25/24 MR#: [id number] Acct: [id number] Name: DAPHNEY EBNSON Rep #: [id number] : 1960 Provider: ISAI Gaitan Age/Sex: 64/F Location: [facility] [place] [facility] Status: Signed Intake Vital Signs 03/23/24 10:25 03/25/24 13:13 Height 5 ft 1 in 5 ft 1 in Weight: 224 lb 2 oz BMI 42.3 BP 120/80 Position Sitting Pulse 111 H Temp 98.5 F Temp Source Oral Pulse Oximetry (%) 91 Oxygen Delivery Method room air Intake Visit Reasons: DO/DIZZINESS/SOB/NAUSEA/2ND VISIT Chief Complaint: cough, sinus, body aches, headache, sob Accompanied by: Self Allergies isoniazid Allergy (Verified 03/25/24 13:28) Other Medications ???Medication ???Instructions ???Recorded ???Confirmed ???Type metformin 1,000 mg tablet 1,000 mg PO BID DM 04/14/20 03/25/24 History montelukast 10 mg tablet 10 mg PO DAILY 04/14/20 03/25/24 History omeprazole 20 mg capsule,delayed 20 mg PO QHS GERD 04/14/20 03/25/24 History release sertraline 100 mg tablet 150 mg PO DAILY 04/14/20 03/25/24 History fluticasone propionate 50 2 spray intranasal DAILY Wheezing 08/03/21 03/25/24 History mcg/actuation nasal spray,suspension mometasone-formoterol HFA 200 2 inh inhalation PRN Wheezing 08/03/21 03/25/24 History mcg-5 mcg/actuation aerosol inhaler Brain health 1 tablet PO DAILY 08/11/21 03/25/24 History compress.stocking,knee,reg,l rg #2 ea 09/01/22 03/25/24 Rx (Relief Knee Close Toe Stocking) compression socks, large #2 ea 09/01/22 03/25/24 Rx bupropion HCl 150 mg 24 hr tablet, 150 mg PO DAILY 09/20/22 03/25/24 History extended release polyethylene glycol 3350 17 gram 17 g PO DAILY 09/20/22 03/25/24 History oral powder packet (Miralax) trazodone 50 mg tablet 50 mg PO QHS 09/20/22 03/25/24 History hydrochlorothiazide 25 mg tablet 25 mg PO DAILY 01/04/23 03/25/24 History budesonide 160 mcg-glycopyr 9 2 inh inhalation BID 07/04/23 03/25/24 History mcg-formot 4.8 mcg/actuation HFA inhaler (Breztri Aerosphere) cartilage 40 mg-collagen II-boron 1 tab PO QHS 07/04/23 03/25/24 History 5 mg-hyaluronate sod 3.3 mg tablet (Move Free Ultra Triple Action (boron)) cholecalciferol (vitamin D3) 1,250 1,250 mcg PO FR 07/04/23 03/25/24 History mcg (50,000 unit) capsule mecobalamin (vitamin B12) 5,000 5,000 mcg PO QHS 07/04/23 03/25/24 History mcg chewable tablet dpnhhuhi-jsic-hwda 8 mg-folic 400 1 tab PO DAILY 07/04/23 03/25/24 History mcg-K 50 mcg-lutein 300 mcg tablet (Centrum Silver Women) atorvastatin 20 mg tablet 20 mg PO QHS #90 tabs 10/31/23 03/25/24 Rx ferrous sulfate 325 mg (65 mg 325 mg PO ONCE SUPPLEMENT 01/08/24 03/25/24 History iron) tablet dulaglutide 3 mg/0.5 mL 3 mg subcut QWEEK 01/13/24 03/25/24 History subcutaneous pen injector (Trulicity) loratadine 10 mg tablet 10 mg PO DAILY 01/13/24 03/25/24 History losartan 100 mg tablet 100 mg PO DAILY 01/13/24 03/25/24 History mirabegron 50 mg tablet,extended 50 mg PO DAILY 01/13/24 03/25/24 History release 24 hr (Myrbetriq) aspirin 325 mg tablet 325 mg PO BREAKFAST #30 tabs 01/15/24 03/25/24 Rx cefdinir 300 mg capsule 300 mg PO BID #10 caps 01/15/24 03/25/24 Rx doxycycline hyclate 100 mg capsule 100 mg PO BID 7 days #14 caps 03/23/24 03/25/24 Rx prednisone 20 mg tablet 40 mg (2 x 20 mg) PO QDAY 5 days 03/23/24 03/25/24 Rx #10 tabs azithromycin 250 mg tablet See Rx Instructions PO .COMPLEX #6 03/25/24 03/25/24 Rx tabs ipratropium 0.5 mg-albuterol 3 mg 3 ml inhalation Q6H 5 days #90 mL 03/25/24 03/25/24 Rx (2.5 mg base)/3 mL nebulization soln Have you fallen in the past year?: No Nurse's Note: Patient here for cough, sinus congestion, headache, body ache, wheezing x4 days, states has SOB as well because of wheezing. Patient was seen here on Sunday PFSH Medical History Tinnitus Loss of hearing MRSA infection Alcohol use Diabetes Ambulates with cane Low iron Anemia High cholesterol Dietary restriction History of ulceration GERD (gastroesophageal reflux disease) CPAP (continuous positive airway pressure) dependence Right hip pain Wears dentures Wears glasses Post-menopausal Anxiety Arthritis Excessive bleeding Back pain Syncope Gastric reflux Sleep apnea Smoker Asthma COPD (chronic obstructive pulmonary disease) Shortness of breath on exertion Chronic cough Leg cramps History of edema History of echocardiogram History of stress test Cardiology follow-up encounter Left rotator cuff tear Primary osteoarthritis, left shoulder Internal impingement of left shoulder Left shoulder pain Atherosclerotic heart disease (more content not included)... Normal [facility] Urgent Care Visit Reporton 1 05-24-2023 Urgent Care Visit Report [facility] [address] , [address] [place] [id number] OFFICE VISIT Date of Service: 03/23/24 MR#: [id number] Acct: [id number] Name: DAPHNEY BENSON Rep #: [id number] : 1960 Provider: SENTHIL gordillo Age/Sex: 64/F Location: [facility] [place] Status: Signed Intake Vital Signs 01/14/24 11:35 03/23/24 11:03 Height 5 ft 1 in BP 118/70 Blood Pressure Location Lt brachial Position Sitting Respiration 12 Pulse 106 H Pulse Source NIBP Temp 99.7 F H Temp Source Oral Pulse Oximetry (%) 98 Oxygen Delivery Method room air Intake Visit Reasons: COUGH/SINUS/HEADACHE Chief Complaint: cough, sinus, body aches, headache, 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 Is patient in pain?: No Allergies isoniazid Allergy (Verified 03/23/24 11:04) Other Medications ???Medication ???Instructions ???Recorded ???Confirmed ???Type metformin 1,000 mg tablet 1,000 mg PO BID DM 04/14/20 03/23/24 History montelukast 10 mg tablet 10 mg PO DAILY 04/14/20 03/23/24 History omeprazole 20 mg capsule,delayed 20 mg PO QHS GERD 04/14/20 03/23/24 History release sertraline 100 mg tablet 150 mg PO DAILY 04/14/20 03/23/24 History fluticasone propionate 50 2 spray intranasal DAILY Wheezing 08/03/21 03/23/24 History mcg/actuation nasal spray,suspension mometasone-formoterol HFA 200 2 inh inhalation PRN Wheezing 08/03/21 03/23/24 History mcg-5 mcg/actuation aerosol inhaler Brain health 1 tablet PO DAILY 08/11/21 03/23/24 History compress.stocking,knee,reg,l rg #2 ea 09/01/22 03/23/24 Rx (Relief Knee Close Toe Stocking) compression socks, large #2 ea 09/01/22 03/23/24 Rx bupropion HCl 150 mg 24 hr tablet, 150 mg PO DAILY 09/20/22 03/23/24 History extended release polyethylene glycol 3350 17 gram 17 g PO DAILY 09/20/22 03/23/24 History oral powder packet (Miralax) trazodone 50 mg tablet 50 mg PO QHS 09/20/22 03/23/24 History hydrochlorothiazide 25 mg tablet 25 mg PO DAILY 01/04/23 03/23/24 History budesonide 160 mcg-glycopyr 9 2 inh inhalation BID 07/04/23 03/23/24 History mcg-formot 4.8 mcg/actuation HFA inhaler (Breztri Aerosphere) cartilage 40 mg-collagen II-boron 1 tab PO QHS 07/04/23 03/23/24 History 5 mg-hyaluronate sod 3.3 mg tablet (Move Free Ultra Triple Action (boron)) cholecalciferol (vitamin D3) 1,250 1,250 mcg PO FR 07/04/23 03/23/24 History mcg (50,000 unit) capsule mecobalamin (vitamin B12) 5,000 5,000 mcg PO QHS 07/04/23 03/23/24 History mcg chewable tablet qjatjjaz-alho-qaru 8 mg-folic 400 1 tab PO DAILY 07/04/23 03/23/24 History mcg-K 50 mcg-lutein 300 mcg tablet (Centrum Silver Women) atorvastatin 20 mg tablet 20 mg PO QHS #90 tabs 10/31/23 03/23/24 Rx ferrous sulfate 325 mg (65 mg 325 mg PO ONCE SUPPLEMENT 01/08/24 03/23/24 History iron) tablet dulaglutide 3 mg/0.5 mL 3 mg subcut QWEEK 01/13/24 03/23/24 History subcutaneous pen injector (Trulicity) loratadine 10 mg tablet 10 mg PO DAILY 01/13/24 03/23/24 History losartan 100 mg tablet 100 mg PO DAILY 01/13/24 03/23/24 History mirabegron 50 mg tablet,extended 50 mg PO DAILY 01/13/24 03/23/24 History release 24 hr (Myrbetriq) aspirin 325 mg tablet 325 mg PO BREAKFAST #30 tabs 01/15/24 03/23/24 Rx cefdinir 300 mg capsule 300 mg PO BID #10 caps 01/15/24 03/23/24 Rx doxycycline hyclate 100 mg capsule 100 mg PO BID 7 days #14 caps 03/23/24 03/23/24 Rx prednisone 20 mg tablet 40 mg (2 x 20 mg) PO QDAY 5 days 03/23/24 03/23/24 Rx #10 tabs Is last menstrual period known: No Post menopausal: Yes Patient : No Have you fallen in the past year?: No PFSH Medical History Tinnitus Loss of hearing MRSA infection Alcohol use Diabetes Ambulates with cane Low iron Anemia High cholesterol Dietary restriction History of ulceration GERD (gastroesophageal reflux disease) CPAP (continuous positive airway pressure) dependence Right hip pain Wears dentures Wears glasses Post-menopausal Anxiety Arthritis Excessive bleeding Back pain Syncope Gastric reflux Sleep apnea Smoker Asthma COPD (chronic obstructive pulmonary disease) Shortness of breath on exertion Chronic cough Leg cramps History of edema History of echocardiogram History of stress test Cardiology follow-up encounter Left rotator cuff tear Primary osteoarthritis, left shoulder Internal impingement of left shoulder Left shoulder pain Atherosclerotic heart disease of [place] coronary artery without angina pectoris History of left heart catheterization (LHC) ( 09/27/21) Abnormal stress test Bronchitis Palpitations Type 2 diabetes mellitus Diabetes COVID-19 MRSA (methicillin resistant staph aureus) culture positive Hy (more content not included)... Normal [facility] Basophil percentageOrdered B y: Zaheer Nilay on 07-26-2023 Chloride [Moles/Vol] 96 mmol/L 98-107 [facility] Glucose [Mass/Vol] 172 mg/dL 74-106 [facility] Comment on above: Fasting Glucose resu lt greater than or equal to 126 mg/dL suggests DIABETES MELLITUS per A.D.A. criteria. Hemoglobin (Bld) [Mass/Vol] 9.1 g/dL 12.0-15.0 [facility] Potassium [Moles/Vol] 3.7 mmol/L 3.5-5.1 [facility] Sodium [Moles/Vol] 134 mmol/L 136-145 [facility] WBC (Bld) [#/Vol] 9.6 10*3/uL 4.4-11.0 [facility] Determination of erythrocyte mean corpuscular volume (MCV)Ordered By: Zaheer Pemberton on 07-26-2023 MCV (RBC) [Entitic vol] 72.5 fL 81-99 [facility] Erythrocyte distribution wid th ratioOrdered By: Zaheer Pemberton on 07-26-2023 Erythrocyte distribution width (RBC) [Ratio] 18.9 % 11.6-14.6 [facility] Erythrocyte distribution wid th standard deviationOrdered By: Zaheer Pemberton on 07-26-2023 Erythrocyte distribution width (RBC) [Entitic vol] 48.8 fL 35.1-43.9 [facility] Hematocrit Auto (Bld) [Volum e fraction]Ordered By: Zaheer Pemberton on 07-26-2023 Hematocrit (Bld) [Volume fraction] 30.0 % 37-47 [facility] Laboratory - Chemistry and C hemistry - challengeOrdered By: Zaheer Pemberton on 07-26-2023 CO2 [Moles/Vol] 34.0 mmol/L 21.0-32.0 [facility] Urea nitrogen/Creatinine [Mass ratio] 11.7 mg/mg 10-20 [facility] Laboratory - Hematology and Cell countsOrdered By: Zaheer Pemberton on 07-26-2023 MCH (RBC) [Entitic mass] 22.0 pg 27.0-32.0 [facility] MCHC (RBC) [Mass/Vol] 30.3 g/dL 32-36 [facility] Platelet mean volume (Bld) [Entitic vol] 9.6 fL 6.2-12.0 [facility] Platelets (Bld) [#/Vol] 303 10*3/uL 150-450 [facility] No Panel InformationOrdered By: Zaheer Pemberton on 07-26-2023 Estimated Creatinine Clearance Calc 82.52 ml/min [facility] Estimated GFR (MDRD) Amer 97 mL/min >60 [facility] Comment on above: GFR Calc Estimated GFR (MDRD) Non-Af Amer 80 mL/min >60 [facility] Comment on above: Non- GFR Calc RBC Auto (Bld) [#/Vol]Ordere d By: Zaheer Pemberton on 07-26-2023 RBC (Bld) [#/Vol] 4.14 10*6/uL 4.2-5.4 [facility] Serum or plasma calcium tracey urement (mass/volume)Ordered By: Zaheer Pemberton on 07-26-2023 Calcium [Mass/Vol] 8.8 mg/dL 8.5-10.1 [facility] Serum or plasma creatinine m easurement (mass/volume)Ordered By: Zaheer Pemberton on 07-26-2023 Creatinine [Mass/Vol] 0.77 mg/dL 0.55-1.02 [facility] Comment on above: The validity of the calculated GFR & GFRAA in patients over 70 years has not been determined. Clinical correlation is essential. Serum or plasma urea nitroge n measurement (mass/volume)Ordered By: Zaheer Pemberton on 07-26-2023 Urea nitrogen [Mass/Vol] 9 mg/dL 7-18 [facility] Thin prep Papanicolaou smear with manual screeningOrdered By: Silverio Street on 07-26-2023 Thin prep Papanicolaou smear with manual screening 213 mg/dL 74-106 [facility] Comment on above: MANAGEMENT OF PATIEN T CARE PER NURSING PROTOCOL Thin prep Papanicolaou smear with manual screeningOrdered By: Zaheer Pemberton on 07-26-2023 Thin prep Papanicolaou smear with manual screening 4 5-15 [facility] Absolute lymphocyte countOrd ered By: Silverio Street on 07-05-2023 Lymphocytes Auto (Unsp spec) [#/Vol] 1.56 10*3/uL 0.83-4.51 [facility] Activated partial thrombopla stin time (aPTT) in platelet poor plasma by coagulation aOrdered By: Silverio Street on 07-05-2023 aPTT Coag (PPP) [Time] 27.3 s 24.1-36.2 [facility] Automated lymphocyte count a s percentage of total leukocytesOrdered By: Silverio Street on 07-05-2023 Lymphocytes/100 WBC Auto (Unsp spec) 22.3 % 19-41 [facility] Basophil percentageOrdered B y: Silverio Street on 07-05-2023 Basophils/100 WBC (Bld) 0.7 % 0-1 [facility] Eosinophils/100 WBC (Bld) 3.7 % 0-5 [facility] Monocytes/100 WBC (Bld) 5.3 % 0-10 [facility] Neutrophils (Bld) [#/Vol] 4.8 10*3/uL 2.0-7.7 [facility] Neutrophils/100 WBC (Bld) 67.9 % 47-70 [facility] Immature granulocytes/100 WB C Auto (Bld)Ordered By: Silverio Street on 07-05-2023 Immature granulocytes/100 WBC (Bld) 0.100 % 0.0-0.9 [facility] Comment on above: IG% - Immature Granu locytes (promyelocytes, myelocytes and metamyelocytes) > 1% indicates that a LEFT SHIFT is Present. Laboratory - Chemistry and C hemistry - challengeOrdered By: Honorio Cárdenas on 07-05-2023 Magnesium [Mass/Vol] 1.7 mg/dL 1.6-2.6 [facility] Laboratory - CoagulationOrde red By: Silverio Street on 07-05-2023 INR Coag (Bld) [Relative time] 1.0 {INR} [facility] PT Coag (PPP) [Time] 12.9 s 11.7-14.9 [facility] Laboratory - Hematology and Cell countsOrdered By: Silverio Street on 07-05-2023 Nucleated RBC/100 WBC (Bld) [Ratio] 0 % 0-5 [facility] No Panel InformationOrdered By: Silverio Street on 07-05-2023 Fructosamine 285 umol/L 0-285 [facility] Comment on above: Published reference interval for apparently healthysubjects between age 20 and 60 is 205 - 285 umol/L and in apoorly controlled diabetic population is 228 - 563 umol/Lwith a mean of 396 umol/L.Performed at: [address] [id number] Director: Craig Santos PhD, Phone: [phone] Nasal Screen MRSA/MSSA [facility] Stool gastrointestinal hemog lobin detection by immunologic methodOrdered By: [facility] Yvrose Carreon on 07-05-2023 Lower GI hemoglobin IA Ql (Stl) [facility] Whole blood hemoglobin A1c/t otal hemoglobin ratio (mass fraction)Ordered By: Silverio Street on 07-05-2023 HbA1c (Bld) [Mass fraction] 6.5 % 3.8-5.6 [facility] Comment on above: Normal < 5.7 % Predi abetic 5.7 - 6.4 % Diabetic >or= 6.5 % Please note range changes. Basophil percentageOrdered B y: [facility] Yvrose Carreon on 06-28-2023 Bilirubin [Mass/Vol] 0.30 mg/dL 0.20-1.00 [facility] Comment on above: For patients on eltr ombopag therapy, use of Dimension [place] TBIL is not recommended. Chloride [Moles/Vol] 102 mmol/L 98-107 [facility] Cholesterol [Mass/Vol] 127 mg/dL <200 [facility] Comment on above: <200 mg/dL Desirable 200-240 mg/dL Borderline >240 mg/dL High Risk Glucose [Mass/Vol] 148 mg/dL 74-106 [facility] Comment on above: Fasting Glucose resu lt greater than or equal to 126 mg/dL suggests DIABETES MELLITUS per A.D.A. criteria. Hemoglobin (Bld) [Mass/Vol] 9.4 g/dL 12.0-15.0 [facility] Potassium [Moles/Vol] 3.7 mmol/L 3.5-5.1 [facility] Protein [Mass/Vol] 7.2 g/dL 6.4-8.2 [facility] Sodium [Moles/Vol] 137 mmol/L 136-145 [facility] Triglyceride [Mass/Vol] 65 mg/dL <199 [facility] Comment on above: The drugs N-Acetylcy steine and Metamizole may falsely depress this assay.Serum Triglycerides Reference Interval Normal <150 mg/dL Borderline high 150 - 199 mg/dL High 200 - 499 mg/dL Very High > or = 500 mg/dL WBC (Bld) [#/Vol] 8.4 10*3/uL 4.4-11.0 [facility] Determination of erythrocyte mean corpuscular volume (MCV)Ordered By: [facility] Yvrose Carreon on 06-28-2023 MCV (RBC) [Entitic vol] 73.9 fL 81-99 [facility] Erythrocyte distribution wid th ratioOrdered By: [facility] Yvroseapolinar Carreon on 06-28-2023 Erythrocyte distribution width (RBC) [Ratio] 17.2 % 11.6-14.6 [facility] Erythrocyte distribution wid th standard deviationOrdered By: [facility] Yvrose Nikhil on 06-28-2023 Erythrocyte distribution width (RBC) [Entitic vol] 45.8 fL 35.1-43.9 [facility] Hematocrit Auto (Bld) [Volum e fraction]Ordered By: [facility] on 06-28-2023 Hematocrit (Bld) [Volume fraction] 31.7 % 37-47 [facility] Iron measurement (mass/mass) Ordered By: [facility] Yvroseapolinar Carreon on 06-28-2023 Iron (Unsp spec) [Mass/Mass] 20 ug/dL 50-170 [facility] Laboratory - Chemistry and C hemistry - challengeOrdered By: [facility] Yvrose Carreon on 06-28-2023 Albumin/Globulin [Mass ratio] 1.1 {ratio} 0.9-2.4 [facility] ALP [Catalytic activity/Vol] 107 U/L 45-117 [facility] ALT [Catalytic activity/Vol] 21 U/L 13-56 [facility] Cholesterol in HDL [Mass/Vol] 62 mg/dL >40 [facility] Comment on above: The drugs N-Acetylcy steine and Metamizole may falsely depress this assay. Reference Range HDL <40 mg/dL Low HDL Cholesterol HDL >or= 60 mg/dL High HDL Cholesterol Cholesterol in LDL [Mass/Vol] 52 mg/dL 0-130 [facility] CO2 [Moles/Vol] 31.0 mmol/L 21.0-32.0 [facility] Globulin (S) [Mass/Vol] 3.4 g/dL 2.2-4.2 [facility] Urea nitrogen/Creatinine [Mass ratio] 19.0 mg/mg 10-20 [facility] Laboratory - Hematology and Cell countsOrdered By: [facility] Yvrose Carreon on 06-28-2023 MCH (RBC) [Entitic mass] 21.9 pg 27.0-32.0 [facility] MCHC (RBC) [Mass/Vol] 29.7 g/dL 32-36 [facility] Platelet mean volume (Bld) [Entitic vol] 9.5 fL 6.2-12.0 [facility] Platelets (Bld) [#/Vol] 375 10*3/uL 150-450 [facility] No Panel InformationOrdered By: [facility] Yvrose Carreon on 06-28-2023 Estimated GFR (MDRD) Amer 87 mL/min >60 [facility] [facility] Comment on above: GFR Calc Estimated GFR (MDRD) Non-Af Amer 72 mL/min >60 [facility] Comment on above: Non- GFR Calc Total Iron Binding Capacity 440 ug/dL 250-450 [facility] VLDL Cholesterol 13 mg/dL 5-40 [facility] RBC Auto (Bld) [#/Vol]Ordere d By: [facility] Yvrose Carreon on 06-28-2023 RBC (Bld) [#/Vol] 4.29 10*6/uL 4.2-5.4 [facility] Serum or plasma calcium tracey urement (mass/volume)Ordered By: [facility] Yvrose Carreon on 06-28-2023 Calcium [Mass/Vol] 9.4 mg/dL 8.5-10.1 [facility] Serum or plasma creatinine m easurement (mass/volume)Ordered By: [facility] Yvrose Carreon on 06-28-2023 Creatinine [Mass/Vol] 0.84 mg/dL 0.55-1.02 [facility] Comment on above: The validity of the calculated GFR & GFRAA in patients over 70 years has not been determined. Clinical correlation is essential. Serum or plasma iron saturat ion measurement (mass fraction)Ordered By: [facility] Yvrose Carreon on 06-28-2023 Iron saturation [Mass fraction] 4.5 % 15.0-55.0 [facility] Serum or plasma urea nitroge n measurement (mass/volume)Ordered By: [facility] Yvrose Carreon on 06-28-2023 Urea nitrogen [Mass/Vol] 16 mg/dL 7-18 [facility] Thin prep Papanicolaou smear with manual screeningOrdered By: [facility] Yvrose Carreon on 06-28-2023 Thin prep Papanicolaou smear with manual screening < 5.0 mg/L NO RANGE EST. [facility] Thin prep Papanicolaou smear with manual screening 3.8 g/dL 3.2-5.0 [facility] Thin prep Papanicolaou smear with manual screening 13 U/L 15-37 [facility] Thin prep Papanicolaou smear with manual screening 4 5-15 [facility] CNOVon 02-09-2023 CNOV Office Visit (UROLMD ) DAPHNEY BENSON ([id number]) 1960 F Date Time Provider Department 02/09/23 11:40 AM OTILIA DISLA UROLMD During your visit today, we recorded the following information about you: Weight Height 114.3 kg 1.549 m Otilia Disla, AERONAUTICAL ENGINEERING TECHNOLOGIST.CATTLE RANCHER 02/09/2023 2:41 PM Signed Daphney Mcintosh Marcelino is a 62 year old female who presents today for evaluation of No chief complaint on file. CHIEF COMPLAINT AND HISTORY OF PRESENT ILLNESS CC: follow up 62 year old female with a history of asthma, HTN, DM, JUSTYN, recurrent uti presents for follow up, she is currently taking mirabegron 50 mg she continues to have urinary frequency, urgency and incontinence. PVR 11 cc, reports of intermittent left flank discomfort since her last visit, no past history of renal calculi, outside urine culture positive for proteus Completed 4 sessions of PFPT and now completes on her own She is asking for further treatment options, third line therapy was discussed DTF hourly, NTF 1-2 Denies straining to void Denies gross hematuria Using vaginal estrace 2 evenings per week one set of twins second was a miscarriage Denies vaginal bulge Pelvic 3 months ago, declined Fluid intake 3-4 cups coffee per day water Past Urological History: Stones:no Surgery:no Tumors:no Infections:yes: currently VITALS: There were no vitals taken for this visit. ALLERGIES: Isoniazid MEDICATIONS: Current Outpatient Medications Medication Sig Dispense Refill buPROPion XL (WELLBUTRIN XL) 150 mg 24 hr tablet cefdinir (OMNICEF) 300 mg capsule furosemide (LASIX) 20 mg tablet glimepiride (AMARYL) 2 mg tablet MYRBETRIQ 50 mg Tb24 DULERA 200-5 mcg/actuation inhaler loratadine (CLARITIN) 10 mg tablet hydrOXYzine pamoate (VISTARIL) 50 mg capsule atorvastatin (LIPITOR) 20 mg tablet traZODone (DESYREL) 50 mg tablet sertraline (ZOLOFT) 100 mg tablet metFORMIN (GLUCOPHAGE) 1,000 mg tablet Take 1,000 mg by mouth daily with breakfast. estradiol (ESTRACE) 0.01 % (0.1 mg/gram) vaginal cream apply one gram over the vagina opening every night for 2 weeks then 2 evenings per week 42.5 g 2 polyethylene glycol 3350 (MIRALAX) 17 gram/dose powder Take 17 g by mouth once daily. metFORMIN (GLUCOPHAGE) 500 mg tablet Take 250 mg by mouth daily with dinner. In addition to 500mg in the morning fluticasone (FLONASE) 50 mcg/actuation nasal spray Use 1 [place] in each nostril once daily. losartan (COZAAR) 25 mg tablet Take 25 mg by mouth once daily. ubidecarenone Q-10 (COENZYME Q-10) 10 mg cap Take 10 mg by mouth once daily. (Patient not taking: Reported on 11/08/2022) sertraline (ZOLOFT) 50 mg tablet Take 1 tablet by mouth once daily. 2 cholecalciferol, Vitamin D3, (VITAMIN D3) 1,250 mcg (50,000 unit) cap capsule Take 50,000 Units by mouth every Sunday. 2 omeprazole (PRILOSEC) 20 mg capsule Take 1 capsule by mouth once daily. 0 metFORMIN (GLUCOPHAGE) 500 mg tablet Take 1 tablet by mouth once daily. In addition to 250mg in the evening 2 montelukast (SINGULAIR) 10 mg tablet Take 1 tablet by mouth once daily. 2 Hydrochlorothiazide 12.5 mg capsule Take 1 capsule by mouth once daily. 90 capsule 1 budesonide-formoterol (SYMBICORT) 160-4.5 mcg/actuation inhaler Inhale 2 Puffs as instructed twice daily. (Patient not taking: Reported on 11/08/2022) 6 Inhaler 1 albuterol HFA (VENTOLIN HFA) 90 mcg/actuation inhaler Inhale 2 Puffs as instructed every 4 hours as needed (FOR COUGH OR WHEEZE). (Patient not taking: Reported on 11/08/2022) 3 Inhaler 1 naproxen (NAPROSYN) 500 mg tablet Take 1 tablet by mouth twice daily as needed (pain/inflammation, take with food.). 180 tablet 3 ketoconazole (NIZORAL) 2 % cream Apply 1 application to affected area twice daily. (Patient not taking: Reported on 11/08/2022) 60 g 1 VITAMIN B COMPLEX (B COMPLEX 1 ORAL) Take 1 tablet by mouth once daily. multivitamin tablet Take 1 tablet by mouth once daily. No current facility-administered medications for this visit. 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 Normal [facility] CNTHERAPYon 12-26-2022 CNTHERAPY OT/PT/Speech Visit ( PTWS) DAPHNEY BENSON ([id number]) 1960 F Date Time Provider Department 12/26/22 2:15 PM CAROLIN DUMONT Date Time Provider Department [place] 12/26/2022 2:15 PM [id number] DUMONT [facility] Reason for Visit: PT Discharge [752] Primary Visit Diagnosis:Urgency of urination [R39.15] Other Visit Diagnosis:HOOD (stress urinary incontinence, female) [N39.3] Allergies As of Date: 12/26/2022 Noted Allergy Reaction ISONIAZID 07/11/2013 14 - Other: See Comments Comments: Chemically induced hepatitis. Patient was hospitalized. Date Reviewed: 11/08/2022 Reviewed by: Otilia Disla APRN.CATTLE RANCHER - Fully Assessed Prescriptions as of 12/26/2022 - buPROPion XL (WELLBUTRIN XL) 150 mg 24 hr tablet - cefdinir (OMNICEF) 300 mg capsule - furosemide (LASIX) 20 mg tablet - glimepiride (AMARYL) 2 mg tablet - MYRBETRIQ 50 mg Tb24 - DULERA 200-5 mcg/actuation inhaler - loratadine (CLARITIN) 10 mg tablet - hydrOXYzine pamoate (VISTARIL) 50 mg capsule - atorvastatin (LIPITOR) 20 mg tablet - traZODone (DESYREL) 50 mg tablet - sertraline (ZOLOFT) 100 mg tablet - metFORMIN (GLUCOPHAGE) 1,000 mg tablet Take 1,000 mg by mouth daily with breakfast. - estradiol (ESTRACE) 0.01 % (0.1 mg/gram) vaginal cream apply one gram over the vagina opening every night for 2 weeks then 2 evenings per week - polyethylene glycol 3350 (MIRALAX) 17 gram/dose powder Take 17 g by mouth once daily. - metFORMIN (GLUCOPHAGE) 500 mg tablet Take 250 mg by mouth daily with dinner. In addition to 500mg in the morning - fluticasone (FLONASE) 50 mcg/actuation nasal spray Use 1 [place] in each nostril once daily. - losartan (COZAAR) 25 mg tablet Take 25 mg by mouth once daily. - ubidecarenone Q-10 (COENZYME Q-10) 10 mg cap Take 10 mg by mouth once daily. - sertraline (ZOLOFT) 50 mg tablet Take 1 tablet by mouth once daily. - cholecalciferol, Vitamin D3, (VITAMIN D3) 1,250 mcg (50,000 unit) cap capsule Take 50,000 Units by mouth every Sunday. - omeprazole (PRILOSEC) 20 mg capsule Take 1 capsule by mouth once daily. - metFORMIN (GLUCOPHAGE) 500 mg tablet Take 1 tablet by mouth once daily. In addition to 250mg in the evening - montelukast (SINGULAIR) 10 mg tablet Take 1 tablet by mouth once daily. - Hydrochlorothiazide 12.5 mg capsule Take 1 capsule by mouth once daily. - budesonide-formoterol (SYMBICORT) 160-4.5 mcg/actuation inhaler Inhale 2 Puffs as instructed twice daily. - albuterol HFA (VENTOLIN HFA) 90 mcg/actuation inhaler Inhale 2 Puffs as instructed every 4 hours as needed (FOR COUGH OR WHEEZE). - naproxen (NAPROSYN) 500 mg tablet Take 1 tablet by mouth twice daily as needed (pain/inflammation, take with food.). - ketoconazole (NIZORAL) 2 % cream Apply 1 application to affected area twice daily. - VITAMIN B COMPLEX (B COMPLEX 1 ORAL) Take 1 tablet by mouth once daily. - multivitamin tablet Take 1 tablet by mouth once daily. Normal [facility] Basophil percentageOrdered B y: Yvrose Carreon on 12-22-2022 Bilirubin [Mass/Vol] 0.40 mg/dL 0.20-1.00 [facility] Comment on above: For patients on eltr ombopag therapy, use of Dimension [place] TBIL is not recommended. Chloride [Moles/Vol] 100 mmol/L 98-[address] [facility] Cholesterol [Mass/Vol] 134 mg/dL <200 [facility] Comment on above: <200 mg/dL Desirable 200-240 mg/dL Borderline >240 mg/dL High Risk Glucose [Mass/Vol] 154 mg/dL 74-106 [facility] Comment on above: Fasting Glucose resu lt greater than or equal to 126 mg/dL suggests DIABETES MELLITUS per A.D.A. criteria. Potassium [Moles/Vol] 4.2 mmol/L 3.5-5.1 [facility] Protein [Mass/Vol] 7.2 g/dL 6.4-8.2 [facility] Sodium [Moles/Vol] 136 mmol/L 136-145 [facility] Triglyceride [Mass/Vol] 108 mg/dL <199 [facility] Comment on above: The drugs N-Acetylcy steine and Metamizole may falsely depress this assay.Serum Triglycerides Reference Interval Normal <150 mg/dL Borderline high 150 - 199 mg/dL High 200 - 499 mg/dL Very High > or = 500 mg/dL WBC (Bld) [#/Vol] 8.7 10*3/uL 4.4-11.0 [facility] Blood erythrocytes count (nu mber/volume)Ordered By: Yvrose Carreon on 12-22-2022 RBC (Bld) [#/Vol] 4.38 10*6/uL 4.2-5.4 [facility] Blood hemoglobin measurement (mass/volume)Ordered By: Yvrose Carreon on 12-22-2022 Hemoglobin (Bld) [Mass/Vol] 11.9 g/dL 12.0-15.0 [facility] Blood platelet mean volumeOr dered By: Yvrose Carreon on 12-22-2022 Platelet mean volume (Bld) [Entitic vol] 10.1 fL 6.2-12.0 [facility] Determination of erythrocyte mean corpuscular volume (MCV)Ordered By: Yvrose Carreon on 12-22-2022 MCV (RBC) [Entitic vol] 82.9 fL 81-99 [facility] Hematocrit Auto (Bld) [Volum e fraction]Ordered By: Yvrose Carreon on 12-22-2022 Hematocrit (Bld) [Volume fraction] 36.3 % 37-47 [facility] Laboratory - Chemistry and C hemistry - challengeOrdered By: Yvrose Carreon on 12-22-2022 ALP [Catalytic activity/Vol] 121 U/L 45-117 [facility] ALT [Catalytic activity/Vol] 26 U/L 13-56 [facility] CO2 [Moles/Vol] 32.0 mmol/L 21.0-32.0 [facility] Globulin (S) [Mass/Vol] 3.3 g/dL 2.2-4.2 [facility] Urea nitrogen/Creatinine [Mass ratio] 19.2 mg/mg 10-20 [facility] Laboratory - Hematology and Cell countsOrdered By: Yvrose Carreon on 12-22-2022 Erythrocyte distribution width (RBC) [Entitic vol] 42.9 fL 35.1-43.9 [facility] Erythrocyte distribution width (RBC) [Ratio] 14.3 % 11.6-14.6 [facility] MCH (RBC) [Entitic mass] 27.2 pg 27.0-32.0 [facility] MCHC Auto (RBC) [Mass/Vol]Or dered By: Yvrose Carreon on 12-22-2022 MCHC (RBC) [Mass/Vol] 32.8 g/dL 32-36 [facility] No Panel InformationOrdered By: Yvrose Carreon on 12-22-2022 Estimated GFR (MDRD) Amer 88 mL/min >60 [facility] Comment on above: GFR Calc Estimated GFR (MDRD) Non-Af Amer 73 mL/min >60 [facility] Comment on above: Non- GFR Calc Platelets bldOrdered By: Varsha Carreon on 12-22-2022 Platelets (Bld) [#/Vol] 258 10*3/uL 150-450 [facility] Serum or plasma albumin tracey urement (mass/volume)Ordered By: Yvrose Carreon on 12-22-2022 Albumin [Mass/Vol] 3.9 g/dL 3.2-5.0 [facility] Serum or plasma albumin/glob ulin mass ratioOrdered By: Yvrose Carreon on 12-22-2022 Albumin/Globulin [Mass ratio] 1.2 {ratio} 0.9-2.4 [facility] Serum or plasma calcium tracey urement (mass/volume)Ordered By: Yvrose Carreon on 12-22-2022 Calcium [Mass/Vol] 9.9 mg/dL 8.5-10.1 [facility] Serum or plasma cholesterol in HDL measurement (mass/volume)Ordered By: Yvrose Carreon on 12-22-2022 Cholesterol in HDL [Mass/Vol] 64 mg/dL >40 [facility] Comment on above: The drugs N-Acetylcy steine and Metamizole may falsely depress this assay. Reference Range HDL <40 mg/dL Low HDL Cholesterol HDL >or= 60 mg/dL High HDL Cholesterol Serum or plasma cholesterol in VLDL measurement (mass/volume)Ordered By: Yvrose Carreon on 12-22-2022 Cholesterol in VLDL [Mass/Vol] 22 mg/dL 5-40 [facility] Serum or plasma creatinine m easurement (mass/volume)Ordered By: Yvrose Carreon on 12-22-2022 Creatinine [Mass/Vol] 0.83 mg/dL 0.55-1.02 [facility] Comment on above: The validity of the calculated GFR & GFRAA in patients over 70 years has not been determined. Clinical correlation is essential. Serum or plasma low density lipoprotein (LDL) cholesterol measurement (mass/volume)Ordered By: Yvrose Carreon on 12-22-2022 Cholesterol in LDL [Mass/Vol] 48 mg/dL 0-130 [facility] Serum or plasma urea nitroge n measurement (mass/volume)Ordered By: Yvrose Carreon on 12-22-2022 Urea nitrogen [Mass/Vol] 16 mg/dL 7-18 [facility] Thin prep Papanicolaou smear with manual screeningOrdered By: Yvrose Carreon on 12-22-2022 Thin prep Papanicolaou smear with manual screening 8 U/L 15-37 [facility] Thin prep Papanicolaou smear with manual screening 4 5-15 [facility] Thin prep Papanicolaou smear with manual screening < 5.0 mg/L NO RANGE EST. [facility] Whole blood hemoglobin A1c/t otal hemoglobin ratio (mass fraction)Ordered By: Yvrose Carreon on 12-22-2022 HbA1c (Bld) [Mass fraction] 6.9 % 3.8-5.6 [facility] Comment on above: Normal < 5.7 % Predi abetic 5.7 - 6.4 % Diabetic >or= 6.5 % Please note range changes. CNTHERAPYon 12-01-2022 CNTHERAPY OT/PT/Speech Visit ( PTWS) DAPHNEY BENSON ([id number]) 1960 F Date Time Provider Department 12/01/22 9:15 AM CAROLIN DUMONT PTWS During your visit today, we recorded the following information about you: Carolin Dumont, PT 12/01/2022 9:59 AM Signed Episode Visit Count: 3 Therapist That Will Accept/Oversee The Plan Of Care: Carolin Rodriguez Start of Care Date: 11/14/22 Onset Date: 11/14/02 Plan of Care Certification Date: 11/14/22 Next Certification Due Date: 01/13/23 Patient Identified by Name and Date of : Yes REHABILITATION AND SPORTS THERAPY PHYSICAL THERAPY TREATMENT NOTE ASSESSMENT: Daphney Benson tolerated the session with no issues. She demonstrated improvements in nocturia, frequency of urinary urgency and urge incontinence episodes. Upon pelvic floor muscle assessment, patient demonstrated good pelvic floor muscle strength and coordination. The patient will continue to benefit from ongoing skilled physical therapy to progress toward set goals. PLAN FOR NEXT VISIT: progress standing exercises as tolerated SUBJECTIVE: Pt reports feeling great, has gone a few days without any UI. Pt reports being able to sleep through the night without urinating. Pt reports being more aware of bladder, is able to listen to signal without it being urgent all the time. Pt reports good compliance with HEP. Pain: Pain Pain Level: 0 Post Treatment Pain Post Treatment Pain Level: 0 OBJECTIVE MEASURES WITH LEVEL OF FUNCTION: Pelvic Floor Urgency: Yes Frequency of Urgency Episodes: a couple times a day Frequency of Leaks Secondary to Urge: not every day Nocturia (times per night): 0 Pelvic Floor Muscle Assessment Consent for pelvic assessment/testing and treatment: Patient was educated regarding pelvic floor physical therapy assessment/treatment which may include pelvic floor and girdle muscle assessment externally or internally (vaginal or rectal approach)., Patient verbalized consent for the above treatment approaches today. Patient understands they have control of the treatment and an opportunity to stop treatment at any time. Pelvic Floor Muscle Assessment: PERFECT, Muscle Dynamics Power: 3 Endurance: 7 Fast Reps: 10 Contracton Pressure: Moderate squeeze, felt all the way around finger surface Duration of Contraction: >3 seconds Recruitment of pelvic floor muscles: Coordinated Range of Motion: Normal Ability to Lengthen pelvic floor: Yes TREATMENT: Therapeutic Exercise: 1: PF mm assessment 2: standing quick kegals, 1x10 3: *standing hip abduction with PF bracing, 2x10 each 4: *standing hip extension with PF bracing, 2x10 each 5: seated TA bracing, 1x10 6: seated TA bracing with alternating marches, 1x10 Skilled Intervention: Patient was educated in proper exercise technique and purpose for exercises. Reviewed and educated patient on additions/changes for home exercise program as above (*). Skilled judgment was provided in selection of appropriate interventions. Provided written instruction for home exercise program to facilitate proper performance and compliance. Billing Therapeutic Exercise Treatment Minutes: 38 Total Session Time (minutes): 38 Session Start Time : 919 Session Stop Time : 957 Carolin Rodriguez, PT Referring Provider: OTILIA DISLA [[id number]] Allergies As of Date: 12/01/2022 Noted Allergy Reaction ISONIAZID 07/11/2013 14 - Other: See Comments Comments: Chemically induced hepatitis. Patient was hospitalized. Date Reviewed: 11/08/2022 Reviewed by: Otilia Disla, AERONAUTICAL ENGINEERING TECHNOLOGIST.CATTLE RANCHER - Fully Assessed Reason for Visit: Physical Therapy [503] Primary Visit Diagnosis:Urgency of urination [R39.15] Other Visit Diagnosis:HOOD (stress urinary incontinence, female) [N39.3] Prescriptions as of 12/01/2022 - buPROPion XL (WELLBUTRIN XL) 150 mg 24 hr tablet - cefdinir (OMNICEF) 300 mg capsule - furosemide (LASIX) 20 mg tablet - glimepiride (AMARYL) 2 mg tablet - MYRBETRIQ 50 mg Tb24 - DULERA 200-5 mcg/actuation inhaler - loratadine (CLARITIN) 10 mg tablet - hydrOXYzine pamoate (VISTARIL) 50 mg capsule - atorvastatin (LIPITOR) 20 mg tablet - traZODone (DESYREL) 50 mg tablet - sertraline (ZOLOFT) 100 mg tablet - metFORMIN (GLUCOPHAGE) 1,000 mg tablet Take 1,000 mg by mouth daily with breakfast. - estradiol (ESTRACE) 0.01 % (0.1 mg/gram) vaginal cream apply one gram over the vagina opening every night for 2 weeks then 2 evenings per week - polyethylene glycol 3350 (MIRALAX) 17 gram/dose powder Take 17 g by mouth once daily. - metFORMIN (GLUCOPHAGE) 500 mg tablet Take 250 mg by mouth daily with dinner. In addition to 500mg in the morning - fluticasone (FLONASE) 50 mcg/actuation nasal spray Use 1 [place] in each nostril once daily. - losartan (COZAAR) 25 mg tablet Take 25 mg by mouth once daily. - ubidecarenone Q-10 (more content not included)... Normal [facility] 11-24-2022 [place]ON[place] Telephone (UROSHARLA) DAPHNEY BENSON ([id number]) 1960 F Date Time Provider Department 11/24/22 OTILIA DISLA During your visit today, we recorded the following information about you: Melita Beach RN 11/24/2022 3:09 PM Signed Type of letter/form/fax request - Old Records Form received from [facility] on 6th floor and placed on MD mailbox for completion. Sent to scanning and given to Otilia Del Cid, [facility] 12/05/2022 11:00 AM Signed Reviewed and sent to scanning Urine culture on 11/03/2022 Proteus mirabilis Allergies As of Date: 11/24/2022 Noted Allergy Reaction ISONIAZID 07/11/2013 14 - Other: See Comments Comments: Chemically induced hepatitis. Patient was hospitalized. Date Reviewed: 11/08/2022 Reviewed by: Otilia Disla APRN.CATTLE RANCHER - Fully Assessed Reason for Visit: Urology Outside records [Other] Prescriptions as of 12/05/2022 - buPROPion XL (WELLBUTRIN XL) 150 mg 24 hr tablet - cefdinir (OMNICEF) 300 mg capsule - furosemide (LASIX) 20 mg tablet - glimepiride (AMARYL) 2 mg tablet - MYRBETRIQ 50 mg Tb24 - DULERA 200-5 mcg/actuation inhaler - loratadine (CLARITIN) 10 mg tablet - hydrOXYzine pamoate (VISTARIL) 50 mg capsule - atorvastatin (LIPITOR) 20 mg tablet - traZODone (DESYREL) 50 mg tablet - sertraline (ZOLOFT) 100 mg tablet - metFORMIN (GLUCOPHAGE) 1,000 mg tablet Take 1,000 mg by mouth daily with breakfast. - estradiol (ESTRACE) 0.01 % (0.1 mg/gram) vaginal cream apply one gram over the vagina opening every night for 2 weeks then 2 evenings per week - polyethylene glycol 3350 (MIRALAX) 17 gram/dose powder Take 17 g by mouth once daily. - metFORMIN (GLUCOPHAGE) 500 mg tablet Take 250 mg by mouth daily with dinner. In addition to 500mg in the morning - fluticasone (FLONASE) 50 mcg/actuation nasal spray Use 1 [place] in each nostril once daily. - losartan (COZAAR) 25 mg tablet Take 25 mg by mouth once daily. - ubidecarenone Q-10 (COENZYME Q-10) 10 mg cap Take 10 mg by mouth once daily. - sertraline (ZOLOFT) 50 mg tablet Take 1 tablet by mouth once daily. - cholecalciferol, Vitamin D3, (VITAMIN D3) 1,250 mcg (50,000 unit) cap capsule Take 50,000 Units by mouth every Sunday. - omeprazole (PRILOSEC) 20 mg capsule Take 1 capsule by mouth once daily. - metFORMIN (GLUCOPHAGE) 500 mg tablet Take 1 tablet by mouth once daily. In addition to 250mg in the evening - montelukast (SINGULAIR) 10 mg tablet Take 1 tablet by mouth once daily. - Hydrochlorothiazide 12.5 mg capsule Take 1 capsule by mouth once daily. - budesonide-formoterol (SYMBICORT) 160-4.5 mcg/actuation inhaler Inhale 2 Puffs as instructed twice daily. - albuterol HFA (VENTOLIN HFA) 90 mcg/actuation inhaler Inhale 2 Puffs as instructed every 4 hours as needed (FOR COUGH OR WHEEZE). - naproxen (NAPROSYN) 500 mg tablet Take 1 tablet by mouth twice daily as needed (pain/inflammation, take with food.). - ketoconazole (NIZORAL) 2 % cream Apply 1 application to affected area twice daily. - VITAMIN B COMPLEX (B COMPLEX 1 ORAL) Take 1 tablet by mouth once daily. - multivitamin tablet Take 1 tablet by mouth once daily. Problem List As Of Date 11/24/2022 Noted Resolved Positive PPD [R76.11] 07/31/2013 Urge incontinence [N39.41] 07/31/2013 HTN (hypertension) [I10] 07/31/2013 Asthma [J45.909] 07/31/2013 Backache, unspecified [M54.9] 01/02/2014 Other chronic pain [G89.29] 01/02/2014 Morbid obesity due to excess calories (HCC) [E6*03/31/2015 GERD (gastroesophageal reflux disease) [K21.9] 03/31/2015 OAB (overactive bladder) [N32.81] 03/31/2015 Primary osteoarthritis of right knee [M17.11] 11/30/2015 Chronic pain of right knee [M25.561, G89.29] 11/30/2015 Colonic polyp [K63.5] 05/26/2016 Open right ankle fracture [S82.891B] 02/18/2020 02/24/2020 Elevated LFTs [R79.89] 02/19/2020 02/24/2020 Liver laceration, grade I [S36.114A] 02/19/2020 Closed fracture of multiple ribs of left side [*02/19/2020 Closed fracture of body of sternum [S22.22XA] 02/19/2020 Closed fracture of right tibial plateau [S82.14*02/19/2020 02/24/2020 Elevated lipase [R74.8] 02/19/2020 02/24/2020 Effusion of right knee [M25.461] 02/19/2020 Obesity, Class III, BMI >= 40 [E66.01] 02/20/2020 Hypokalemia [E87.6] 02/20/2020 02/24/2020 Acute urinary retention [R33.8] 02/20/2020 02/24/2020 Nicotine use disorder, F17.2 [F17.200] 02/21/2020 Urgency of urination [R39.15] 11/14/2022 HOOD (stress urinary incontinence, female) [N39.*11/14/2022 Encounter Status:Closed by OTILIA DISLA on 12/05/22 [facility] CNTHERAPYon 11-24-2022 CNTHERAPY OT/PT/Speech Visit ( PTWS) DAPHNEY BENSON ([id number]) 1960 F Date Time Provider Department 11/24/22 3:00 PM CAROLIN DUMONT Date Time Provider Department [place] 11/24/2022 3:00 PM [id number] DUMONT Reason for Visit: Physical Therapy [503] Primary Visit Diagnosis:Urgency of urination [R39.15] Other Visit Diagnosis:HOOD (stress urinary incontinence, female) [N39.3] Allergies As of Date: 11/24/2022 Noted Allergy Reaction ISONIAZID 07/11/2013 14 - Other: See Comments Comments: Chemically induced hepatitis. Patient was hospitalized. Date Reviewed: 11/08/2022 Reviewed by: Otilia Disla, AERONAUTICAL ENGINEERING TECHNOLOGIST.CATTLE RANCHER - Fully Assessed Prescriptions as of 11/24/2022 - buPROPion XL (WELLBUTRIN XL) 150 mg 24 hr tablet - cefdinir (OMNICEF) 300 mg capsule - furosemide (LASIX) 20 mg tablet - glimepiride (AMARYL) 2 mg tablet - MYRBETRIQ 50 mg Tb24 - DULERA 200-5 mcg/actuation inhaler - loratadine (CLARITIN) 10 mg tablet - hydrOXYzine pamoate (VISTARIL) 50 mg capsule - atorvastatin (LIPITOR) 20 mg tablet - traZODone (DESYREL) 50 mg tablet - sertraline (ZOLOFT) 100 mg tablet - metFORMIN (GLUCOPHAGE) 1,000 mg tablet Take 1,000 mg by mouth daily with breakfast. - estradiol (ESTRACE) 0.01 % (0.1 mg/gram) vaginal cream apply one gram over the vagina opening every night for 2 weeks then 2 evenings per week - polyethylene glycol 3350 (MIRALAX) 17 gram/dose powder Take 17 g by mouth once daily. - metFORMIN (GLUCOPHAGE) 500 mg tablet Take 250 mg by mouth daily with dinner. In addition to 500mg in the morning - fluticasone (FLONASE) 50 mcg/actuation nasal spray Use 1 [place] in each nostril once daily. - losartan (COZAAR) 25 mg tablet Take 25 mg by mouth once daily. - ubidecarenone Q-10 (COENZYME Q-10) 10 mg cap Take 10 mg by mouth once daily. - sertraline (ZOLOFT) 50 mg tablet Take 1 tablet by mouth once daily. - cholecalciferol, Vitamin D3, (VITAMIN D3) 1,250 mcg (50,000 unit) cap capsule Take 50,000 Units by mouth every Sunday. - omeprazole (PRILOSEC) 20 mg capsule Take 1 capsule by mouth once daily. - metFORMIN (GLUCOPHAGE) 500 mg tablet Take 1 tablet by mouth once daily. In addition to 250mg in the evening - montelukast (SINGULAIR) 10 mg tablet Take 1 tablet by mouth once daily. - Hydrochlorothiazide 12.5 mg capsule Take 1 capsule by mouth once daily. - budesonide-formoterol (SYMBICORT) 160-4.5 mcg/actuation inhaler Inhale 2 Puffs as instructed twice daily. - albuterol HFA (VENTOLIN HFA) 90 mcg/actuation inhaler Inhale 2 Puffs as instructed every 4 hours as needed (FOR COUGH OR WHEEZE). - naproxen (NAPROSYN) 500 mg tablet Take 1 tablet by mouth twice daily as needed (pain/inflammation, take with food.). - ketoconazole (NIZORAL) 2 % cream Apply 1 application to affected area twice daily. - VITAMIN B COMPLEX (B COMPLEX 1 ORAL) Take 1 tablet by mouth once daily. - multivitamin tablet Take 1 tablet by mouth once daily. Normal [facility] CNTHERAPYon 11-14-2022 CNTHERAPY OT/PT/Speech Visit ( PTWS) DAPHNEY BENSON ([id number]) 1960 F Date Time Provider Department 11/14/22 7:45 AM CAROLIN DUMONT Date Time Provider Department [place] 11/14/2022 7:45 AM [id number] DUMONT Reason for Visit: PT Eval [747] Primary Visit Diagnosis:Urgency of urination [R39.15] Other Visit Diagnosis:HOOD (stress urinary incontinence, female) [N39.3] Allergies As of Date: 11/14/2022 Noted Allergy Reaction ISONIAZID 07/11/2013 14 - Other: See Comments Comments: Chemically induced hepatitis. Patient was hospitalized. Date Reviewed: 11/08/2022 Reviewed by: Otilia Disla, RUBENS.CATTLE RANCHER - Fully Assessed Prescriptions as of 11/14/2022 - buPROPion XL (WELLBUTRIN XL) 150 mg 24 hr tablet - cefdinir (OMNICEF) 300 mg capsule - furosemide (LASIX) 20 mg tablet - glimepiride (AMARYL) 2 mg tablet - MYRBETRIQ 50 mg Tb24 - DULERA 200-5 mcg/actuation inhaler - loratadine (CLARITIN) 10 mg tablet - hydrOXYzine pamoate (VISTARIL) 50 mg capsule - atorvastatin (LIPITOR) 20 mg tablet - traZODone (DESYREL) 50 mg tablet - sertraline (ZOLOFT) 100 mg tablet - metFORMIN (GLUCOPHAGE) 1,000 mg tablet Take 1,000 mg by mouth daily with breakfast. - estradiol (ESTRACE) 0.01 % (0.1 mg/gram) vaginal cream apply one gram over the vagina opening every night for 2 weeks then 2 evenings per week - polyethylene glycol 3350 (MIRALAX) 17 gram/dose powder Take 17 g by mouth once daily. - metFORMIN (GLUCOPHAGE) 500 mg tablet Take 250 mg by mouth daily with dinner. In addition to 500mg in the morning - fluticasone (FLONASE) 50 mcg/actuation nasal spray Use 1 [place] in each nostril once daily. - losartan (COZAAR) 25 mg tablet Take 25 mg by mouth once daily. - ubidecarenone Q-10 (COENZYME Q-10) 10 mg cap Take 10 mg by mouth once daily. - sertraline (ZOLOFT) 50 mg tablet Take 1 tablet by mouth once daily. - cholecalciferol, Vitamin D3, (VITAMIN D3) 1,250 mcg (50,000 unit) cap capsule Take 50,000 Units by mouth every Sunday. - omeprazole (PRILOSEC) 20 mg capsule Take 1 capsule by mouth once daily. - metFORMIN (GLUCOPHAGE) 500 mg tablet Take 1 tablet by mouth once daily. In addition to 250mg in the evening - montelukast (SINGULAIR) 10 mg tablet Take 1 tablet by mouth once daily. - Hydrochlorothiazide 12.5 mg capsule Take 1 capsule by mouth once daily. - budesonide-formoterol (SYMBICORT) 160-4.5 mcg/actuation inhaler Inhale 2 Puffs as instructed twice daily. - albuterol HFA (VENTOLIN HFA) 90 mcg/actuation inhaler Inhale 2 Puffs as instructed every 4 hours as needed (FOR COUGH OR WHEEZE). - naproxen (NAPROSYN) 500 mg tablet Take 1 tablet by mouth twice daily as needed (pain/inflammation, take with food.). - ketoconazole (NIZORAL) 2 % cream Apply 1 application to affected area twice daily. - VITAMIN B COMPLEX (B COMPLEX 1 ORAL) Take 1 tablet by mouth once daily. - multivitamin tablet Take 1 tablet by mouth once daily. Normal [facility] CNOVon 11-08-2022 CNOV Office Visit (UROLMD ) DAPHNEY BENSON ([id number]) 1960 F Date Time Provider Department 11/08/22 3:00 PM OTILIA DISLA UROLMD During your visit today, we recorded the following information about you: Weight Height 117.4 kg 1.6 m Beth Costa MA 11/08/2022 3:08 PM Signed Patient had bladderscan in office and had a PVR of 0ml. Otilia Disla, AERONAUTICAL ENGINEERING TECHNOLOGIST.CATTLE RANCHER 12/05/2022 11:02 AM Addendum Daphney Mcintosh Marcelino is a 62 year old female who presents today for evaluation of Patient presents with: Consult Urinary Incontinence CHIEF COMPLAINT AND HISTORY OF PRESENT ILLNESS CC: leakage 62 year old female with a history of ashtma, HTN, DM presents today for inability to hold urine and she is not able to feel half of her bladder, 3-4 uti's over the last few months. +leakage with coughing laughing. She is currently taking cefdinir 300 mg and has 2 doses Typical symptoms of uti are frequency, leakage. DTF hourly, NTF 1-2 Denies straining to void Denies gross hematuria Not taking anything for UTI prevention Currently taking mirabegron 50 mg for the past 4 months one set of twins second was a miscarriage Denies vaginal bulge Pelvic 3 months ago Fluid intake 3-4 cups coffee per day water Past Urological History: Stones:no Surgery:no Tumors:no Infections:yes: currently VITALS: Height 160 cm (5' 3), weight 117.4 kg (258 lb 14.4 oz). ALLERGIES: Isoniazid MEDICATIONS: Current Outpatient Medications Medication Sig Dispense Refill buPROPion XL (WELLBUTRIN XL) 150 mg 24 hr tablet cefdinir (OMNICEF) 300 mg capsule furosemide (LASIX) 20 mg tablet glimepiride (AMARYL) 2 mg tablet MYRBETRIQ 50 mg Tb24 DULERA 200-5 mcg/actuation inhaler loratadine (CLARITIN) 10 mg tablet hydrOXYzine pamoate (VISTARIL) 50 mg capsule traZODone (DESYREL) 50 mg tablet sertraline (ZOLOFT) 100 mg tablet metFORMIN (GLUCOPHAGE) 1,000 mg tablet Take 1,000 mg by mouth daily with breakfast. polyethylene glycol 3350 (MIRALAX) 17 gram/dose powder Take 17 g by mouth once daily. fluticasone (FLONASE) 50 mcg/actuation nasal spray Use 1 [place] in each nostril once daily. losartan (COZAAR) 25 mg tablet Take 25 mg by mouth once daily. cholecalciferol, Vitamin D3, (VITAMIN D3) 1,250 mcg (50,000 unit) cap capsule Take 50,000 Units by mouth every Sunday. 2 omeprazole (PRILOSEC) 20 mg capsule Take 1 capsule by mouth once daily. 0 montelukast (SINGULAIR) 10 mg tablet Take 1 tablet by mouth once daily. 2 Hydrochlorothiazide 12.5 mg capsule Take 1 capsule by mouth once daily. 90 capsule 1 naproxen (NAPROSYN) 500 mg tablet Take 1 tablet by mouth twice daily as needed (pain/inflammation, take with food.). 180 tablet 3 VITAMIN B COMPLEX (B COMPLEX 1 ORAL) Take 1 tablet by mouth once daily. multivitamin tablet Take 1 tablet by mouth once daily. atorvastatin (LIPITOR) 20 mg tablet metFORMIN (GLUCOPHAGE) 500 mg tablet Take 250 mg by mouth daily with dinner. In addition to 500mg in the morning ubidecarenone Q-10 (COENZYME Q-10) 10 mg cap Take 10 mg by mouth once daily. (Patient not taking: Reported on 11/08/2022) sertraline (ZOLOFT) 50 mg tablet Take 1 tablet by mouth once daily. 2 metFORMIN (GLUCOPHAGE) 500 mg tablet Take 1 tablet by mouth once daily. In addition to 250mg in the evening 2 budesonide-formoterol (SYMBICORT) 160-4.5 mcg/actuation inhaler Inhale 2 Puffs as instructed twice daily. (Patient not taking: Reported on 11/08/2022) 6 Inhaler 1 albuterol HFA (VENTOLIN HFA) 90 mcg/actuation inhaler Inhale 2 Puffs as instructed every 4 hours as needed (FOR COUGH OR WHEEZE). (Patient not taking: Reported on 11/08/2022) 3 Inhaler 1 ketoconazole (NIZORAL) 2 % cream Apply 1 application to affected area twice daily. (Patient not taking: Reported on 11/08/2022) 60 g 1 No current facility-administered medications for this visit. 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 MRSA. hospitalized for abdominal abscesses PAS (more content not included)... Normal [facility] UA DIP, URINE (POC)on 2022 BILIRUBIN UA (POCT) Negative Negative [facility] CLARITY UA (POCT) Clear [facility] COLOR UA (POCT) [facility] GLUCOSE UA (POCT) Negative Negative mg/dL [facility] HEMOGLOBIN/BLOOD UA (POCT) Negative Negative [facility] KETONE UA (POCT) Trace Negative mg/dL [facility] LEUKOCYTES UA (POCT) Trace [facility]normal [facility]) [facility] PH UA (POCT) 6.5 4.5 - 8.0 [facility] Protein Ql (U) Negative Negative mg/dL [facility] SPECIFIC GRAVITY UA (POCT) 1.020 1.005 - 1.030 [facility] UROBILINOGEN UA (POCT) 1.0 E.U./dL [place] E.U./dL [facility] Absolute lymphocyte countOrd ered By: Yvrose Carreon on 11-02-2022 Lymphocytes Auto (Unsp spec) [#/Vol] 1.66 10*3/uL 0.83-4.51 [facility] Basophil percentageOrdered B y: Yamilet Rivera on 11-02-2022 Chloride [Moles/Vol] 101 mmol/L 98-107 [facility] Glucose [Mass/Vol] 198 mg/dL 74-106 [facility] Comment on above: Fasting Glucose resu lt greater than or equal to 126 mg/dL suggests DIABETES MELLITUS per A.D.A. criteria. Potassium [Moles/Vol] 3.6 mmol/L 3.5-5.1 [facility] Sodium [Moles/Vol] 139 mmol/L 136-145 [facility] Basophil percentageOrdered B y: Yvrose Carreon on 11-02-2022 Basophils/100 WBC (Bld) 0.6 % 0-1 [facility] Eosinophils/100 WBC (Bld) 4.4 % 0-5 [facility] Neutrophils (Bld) [#/Vol] 5.4 10*3/uL 2.0-7.7 [facility] Neutrophils/100 WBC (Bld) 68.6 % 47-70 [facility] WBC (Bld) [#/Vol] 7.9 10*3/uL 4.4-11.0 [facility] Blood erythrocytes count (nu mber/volume)Ordered By: Yvrose Carreon on 11-02-2022 RBC (Bld) [#/Vol] 4.19 10*6/uL 4.2-5.4 [facility] Blood hemoglobin measurement (mass/volume)Ordered By: Yvrose Carreon on 11-02-2022 Hemoglobin (Bld) [Mass/Vol] 11.5 g/dL 12.0-15.0 [facility] Blood lymphocytes/100 leukoc ytesOrdered By: Yvrose Carreon on 11-02-2022 Lymphocytes/100 WBC (Bld) 21.0 % 19-41 [facility] Blood monocytes/100 leukocyt esOrdered By: Yvrose Carreon on 11-02-2022 Monocytes/100 WBC (Bld) 5.1 % 0-10 [facility] Blood platelet mean volumeOr dered By: Yvrose Carreon on 11-02-2022 Platelet mean volume (Bld) [Entitic vol] 9.6 fL 6.2-12.0 [facility] Determination of erythrocyte mean corpuscular volume (MCV)Ordered By: Yvrose Carreon on 11-02-2022 MCV (RBC) [Entitic vol] 83.8 fL 81-99 [facility] Hematocrit Auto (Bld) [Volum e fraction]Ordered By: Yvrose Carreon on 11-02-2022 Hematocrit (Bld) [Volume fraction] 35.1 % 37-47 [facility] Laboratory - Chemistry and C hemistry - challengeOrdered By: Yamilet Rivera on 11-02-2022 CO2 [Moles/Vol] 32.0 mmol/L 21.0-32.0 [facility] Urea nitrogen/Creatinine [Mass ratio] 21.0 mg/mg 10-20 [facility] Laboratory - Hematology and Cell countsOrdered By: Yvrose Carreon on 11-02-2022 Erythrocyte distribution width (RBC) [Entitic vol] 43.4 fL 35.1-43.9 [facility] Erythrocyte distribution width (RBC) [Ratio] 14.3 % 11.6-14.6 [facility] Immature granulocytes/100 WBC (Bld) 0.300 % 0.0-0.9 [facility] Comment on above: IG% - Immature Granu locytes (promyelocytes, myelocytes and metamyelocytes) > 1% indicates that a LEFT SHIFT is Present. MCH (RBC) [Entitic mass] 27.4 pg 27.0-32.0 [facility] Nucleated RBC/100 WBC (Bld) [Ratio] 0 % 0-5 [facility] [Mass/Vol]Or dered By: Yvrose Carreon on 11-02-2022 MCHC (RBC) [Mass/Vol] 32.8 g/dL 32-36 [facility] No Panel InformationOrdered By: Yamilet Rivera on 11-02-2022 Estimated Creatinine Clearance Calc 58.04 ml/min [facility] Estimated GFR (MDRD) Amer 91 mL/min >60 [facility] Comment on above: GFR Calc Estimated GFR (MDRD) Non-Af Amer 76 mL/min >60 [facility] Comment on above: Non- GFR Calc No Panel InformationOrdered By: Yvrose Carreon on 11-02-2022 D-Dimer Quantitative (PE/DVT) 0.66 FEU/ug/m 0.27-0.49 [facility] Comment on above: D-Dimer ELEVATED (>0 .49): Additional studies and clinicalassessments are indicated to conclude diagnosis of:Deep Vein Thrombosis (DVT) or Pulmonary Embolism (PE) Platelets bldOrdered By: Varsha Carreon on 11-02-2022 Platelets (Bld) [#/Vol] 220 10*3/uL 150-450 [facility] Serum or plasma calcium tracey urement (mass/volume)Ordered By: Yamilet Rivera on 11-02-2022 Calcium [Mass/Vol] 9.3 mg/dL 8.5-10.1 [facility] Serum or plasma creatinine m easurement (mass/volume)Ordered By: Yamilet Rivera on 11-02-2022 Creatinine [Mass/Vol] 0.81 mg/dL 0.55-1.02 [facility] Comment on above: The validity of the calculated GFR & GFRAA in patients over 70 years has not been determined. Clinical correlation is essential. Serum or plasma urea nitroge n measurement (mass/volume)Ordered By: Yamilet Rivera on 11-02-2022 Urea nitrogen [Mass/Vol] 17 mg/dL 7-18 [facility] Serum or plasma uric acid me asurement (mass/volume)Ordered By: Yvrose Carreon on 11-02-2022 Urate [Mass/Vol] 5.7 mg/dL 2.6-6.0 [facility] Comment on above: The drugs N-Acetylcy steine and Metamizole may falsely depress this assay. Thin prep Papanicolaou smear with manual screeningOrdered By: Yamilet Rivera on 11-02-2022 Thin prep Papanicolaou smear with manual screening 6 5-15 [facility] Glucose Glucometer (BldC) [M ass/Vol]Ordered By: Silverio Street on 09-27-2022 Glucose [Mass/Vol] 141 mg/dL 74-106 [facility] Comment on above: MANAGEMENT OF PATIEN T CARE PER NURSING PROTOCOL Basophil percentageOrdered B y: Silverio Street on 09-20-2022 Chloride [Moles/Vol] 100 mmol/L 98-107 [facility] Glucose [Mass/Vol] 59 mg/dL 74-106 [facility] Potassium [Moles/Vol] 4.0 mmol/L 3.5-5.1 [facility] Sodium [Moles/Vol] 138 mmol/L 136-145 [facility] Laboratory - Chemistry and C hemistry - challengeOrdered By: Silverio Street on 09-20-2022 CO2 [Moles/Vol] 29.0 mmol/L 21.0-32.0 [facility] Urea nitrogen/Creatinine [Mass ratio] 19.8 mg/mg 10-20 [facility] No Panel InformationOrdered By: Silverio Street on 09-20-2022 Estimated GFR (MDRD) Amer 85 mL/min >60 [facility] Comment on above: GFR Calc Estimated GFR (MDRD) Non-Af Amer 71 mL/min >60 [facility] Comment on above: Non- GFR Calc Serum or plasma calcium tracey urement (mass/volume)Ordered By: Silverio Street on 09-20-2022 Calcium [Mass/Vol] 10.7 mg/dL 8.5-10.1 [facility] Serum or plasma creatinine m easurement (mass/volume)Ordered By: Silverio Street on 09-20-2022 Creatinine [Mass/Vol] 0.86 mg/dL 0.55-1.02 [facility] Comment on above: The validity of the calculated GFR & GFRAA in patients over 70 years has not been determined. Clinical correlation is essential. Serum or plasma urea nitroge n measurement (mass/volume)Ordered By: Silverio Street on 09-20-2022 Urea nitrogen [Mass/Vol] 17 mg/dL 7-18 [facility] Thin prep Papanicolaou smear with manual screeningOrdered By: Silverio Street on 09-20-2022 Thin prep Papanicolaou smear with manual screening 9 5-15 [facility] Basophil percentageOrdered B y: ALAYNA BENAVIDES on 09-13-2022 Bilirubin [Mass/Vol] 0.40 mg/dL 0.20-1.00 [facility] Comment on above: For patients on eltr ombopag therapy, use of Dimension [place] TBIL is not recommended. Chloride [Moles/Vol] 98 mmol/L 98-107 [facility] Glucose [Mass/Vol] 220 mg/dL 74-106 [facility] Comment on above: Glucose result great er than or equal to 200 mg/dLsuggests DIABETES MELLITUS per A.D.A. criteria. Potassium [Moles/Vol] 3.2 mmol/L 3.5-5.1 [facility] Protein [Mass/Vol] 7.2 g/dL 6.4-8.2 [facility] Sodium [Moles/Vol] 138 mmol/L 136-145 [facility] WBC (Bld) [#/Vol] 8.6 10*3/uL 4.4-11.0 [facility] Blood erythrocytes count (nu mber/volume)Ordered By: [facility] on 09-13-2022 RBC (Bld) [#/Vol] 4.62 10*6/uL 4.2-5.4 [facility] Blood hemoglobin measurement (mass/volume)Ordered By: [facility] on 09-13-2022 Hemoglobin (Bld) [Mass/Vol] 12.6 g/dL 12.0-15.0 [facility] Blood platelet mean volumeOr dered By: [facility] on 09-13-2022 Platelet mean volume (Bld) [Entitic vol] 10.2 fL 6.2-12.0 [facility] Determination of erythrocyte mean corpuscular volume (MCV)Ordered By: ALAYNA BENAVIDES on 09-13-2022 MCV (RBC) [Entitic vol] 84.4 fL 81-99 [facility] Erythrocyte sedimentation ra teOrdered By: [facility] on 09-13-2022 ESR (Bld) [Velocity] 10 mm/h 0-30 [facility] Hematocrit Auto (Bld) [Volum e fraction]Ordered By: [facility] on 09-13-2022 Hematocrit (Bld) [Volume fraction] 39.0 % 37-47 [facility] Laboratory - Chemistry and C hemistry - challengeOrdered By: [facility] on 09-13-2022 ALP [Catalytic activity/Vol] 101 U/L 45-117 [facility] ALT [Catalytic activity/Vol] 23 U/L 13-56 [facility] CO2 [Moles/Vol] 33.0 mmol/L 21.0-32.0 [facility] Globulin (S) [Mass/Vol] 3.5 g/dL 2.2-4.2 [facility] Natriuretic peptide B (Bld) [Mass/Vol] 32.2 pg/mL 0-100 [facility] Urea nitrogen/Creatinine [Mass ratio] 19.0 mg/mg 10-20 [facility] Laboratory - Hematology and Cell countsOrdered By: [facility] on 09-13-2022 Erythrocyte distribution width (RBC) [Entitic vol] 45.1 fL 35.1-43.9 [facility] Erythrocyte distribution width (RBC) [Ratio] 14.8 % 11.6-14.6 [facility] MCH (RBC) [Entitic mass] 27.3 pg 27.0-32.0 [facility] MCHC Auto (RBC) [Mass/Vol]Or dered By: [facility] on 09-13-2022 MCHC (RBC) [Mass/Vol] 32.3 g/dL 32-36 [facility] No Panel InformationOrdered By: [facility] on 09-13-2022 Estimated GFR (MDRD) Amer 72 mL/min >60 [facility] Comment on above: GFR Calc Estimated GFR (MDRD) Non-Af Amer 59 mL/min >60 [facility] Comment on above: Non- GFR Calc Platelets bldOrdered By: GUERRERO DSOUZA on 09-13-2022 Platelets (Bld) [#/Vol] 303 10*3/uL 150-450 [facility] Serum or plasma C reactive p rotein measurement (mass/volume)Ordered By: [facility] on 09-13-2022 CRP [Mass/Vol] 10.30 mg/L 0.0-3.0 [facility] Comment on above: C-Reactive Protein ( CRP) provides useful information for thediagnosis, therapy and monitoring of inflammatory processesand associated diseases. For the evaluation of Relative Riskfor Cardiovascular Disease, a High Sensitivity CRP (HSCRP)should be ordered. Serum or plasma albumin tracey urement (mass/volume)Ordered By: [facility] on 09-13-2022 Albumin [Mass/Vol] 3.7 g/dL 3.2-5.0 [facility] Serum or plasma albumin/glob ulin mass ratioOrdered By: [facility] on 09-13-2022 Albumin/Globulin [Mass ratio] 1.1 {ratio} 0.9-2.4 [facility] Serum or plasma calcium tracey urement (mass/volume)Ordered By: [facility] on 09-13-2022 Calcium [Mass/Vol] 9.9 mg/dL 8.5-10.1 [facility] Serum or plasma creatinine m easurement (mass/volume)Ordered By: [facility] on 09-13-2022 Creatinine [Mass/Vol] 1.00 mg/dL 0.55-1.02 [facility] Comment on above: The validity of the calculated GFR & GFRAA in patients over 70 years has not been determined. Clinical correlation is essential. Serum or plasma urea nitroge n measurement (mass/volume)Ordered By: [facility] on 09-13-2022 Urea nitrogen [Mass/Vol] 19 mg/dL 7-18 [facility] Thin prep Papanicolaou smear with manual screeningOrdered By: [facility] on 09-13-2022 Thin prep Papanicolaou smear with manual screening 15 U/L 15-37 [facility] Thin prep Papanicolaou smear with manual screening 7 5-15 [facility] Thin prep Papanicolaou smear with manual screening 15.1 mg/L NO RANGE EST. [facility] Whole blood hemoglobin A1c/t otal hemoglobin ratio (mass fraction)Ordered By: [facility] on 09-13-2022 HbA1c (Bld) [Mass fraction] 6.9 % 3.8-5.6 [facility] Comment on above: Normal < 5.7 % Predi abetic 5.7 - 6.4 % Diabetic >or= 6.5 % Please note range changes. Absolute lymphocyte countOrd ered By: Dr. Hugo on 09-01-2022 Lymphocytes Auto (Unsp spec) [#/Vol] 1.42 10*3/uL 0.83-4.51 [facility] Basophil percentageOrdered B y: Dr. Hugo on 09-01-2022 Basophils/100 WBC (Bld) 0.4 % 0-1 [facility] Eosinophils/100 WBC (Bld) 3.0 % 0-5 [facility] Neutrophils (Bld) [#/Vol] 5.6 10*3/uL 2.0-7.7 [facility] Neutrophils/100 WBC (Bld) 73.1 % 47-70 [facility] WBC (Bld) [#/Vol] 7.7 10*3/uL 4.4-11.0 [facility] Blood erythrocytes count (nu mber/volume)Ordered By: Dr. Hugo on 09-01-2022 RBC (Bld) [#/Vol] 4.37 10*6/uL 4.2-5.4 [facility] Blood hemoglobin measurement (mass/volume)Ordered By: Dr. Hugo on 09-01-2022 Hemoglobin (Bld) [Mass/Vol] 12.2 g/dL 12.0-15.0 [facility] Blood lymphocytes/100 leukoc ytesOrdered By: Dr. Hugo on 09-01-2022 Lymphocytes/100 WBC (Bld) 18.5 % 19-41 [facility] Blood monocytes/100 leukocyt esOrdered By: Dr. Hugo on 09-01-2022 Monocytes/100 WBC (Bld) 4.7 % 0-10 [facility] Blood platelet mean volumeOr dered By: Dr. Hugo on 09-01-2022 Platelet mean volume (Bld) [Entitic vol] 9.3 fL 6.2-12.0 [facility] Determination of erythrocyte mean corpuscular volume (MCV)Ordered By: Dr. Hugo on 09-01-2022 MCV (RBC) [Entitic vol] 82.2 fL 81-99 [facility] Hematocrit Auto (Bld) [Volum e fraction]Ordered By: Dr. Hugo on 09-01-2022 Hematocrit (Bld) [Volume fraction] 35.9 % 37-47 [facility] Laboratory - Hematology and Cell countsOrdered By: Dr. Hugo on 09-01-2022 Erythrocyte distribution width (RBC) [Entitic vol] 44.1 fL 35.1-43.9 [facility] Erythrocyte distribution width (RBC) [Ratio] 14.8 % 11.6-14.6 [facility] Immature granulocytes/100 WBC (Bld) 0.300 % 0.0-0.9 [facility] Comment on above: IG% - Immature Granu locytes (promyelocytes, myelocytes and metamyelocytes) > 1% indicates that a LEFT SHIFT is Present. MCH (RBC) [Entitic mass] 27.9 pg 27.0-32.0 [facility] Nucleated RBC/100 WBC (Bld) [Ratio] 0 % 0-5 [facility] MCHC Auto (RBC) [Mass/Vol]Or dered By: Dr. Hugo on 09-01-2022 MCHC (RBC) [Mass/Vol] 34.0 g/dL 32-36 [facility] Platelets bldOrdered By: Dr. Hugo on 09-01-2022 Platelets (Bld) [#/Vol] 257 10*3/uL 150-450 [facility] Absolute lymphocyte countOrd ered By: Dr. Gutierrez on 08-28-2022 Lymphocytes Auto (Unsp spec) [#/Vol] 1.62 10*3/uL 0.83-4.51 [facility] Basophil percentageOrdered B y: Dr. Gutierrez on 08-28-2022 Basophils/100 WBC (Bld) 0.7 % 0-1 [facility] Chloride [Moles/Vol] 99 mmol/L 98-107 [facility] Eosinophils/100 WBC (Bld) 2.8 % 0-5 [facility] Glucose [Mass/Vol] 242 mg/dL 74-106 [facility] Comment on above: Glucose result great er than or equal to 200 mg/dLsuggests DIABETES MELLITUS per A.D.A. criteria. Neutrophils (Bld) [#/Vol] 6.2 10*3/uL 2.0-7.7 [facility] Neutrophils/100 WBC (Bld) 71.9 % 47-70 [facility] Potassium [Moles/Vol] 3.8 mmol/L 3.5-5.1 [facility] Sodium [Moles/Vol] 136 mmol/L 136-145 [facility] WBC (Bld) [#/Vol] 8.6 10*3/uL 4.4-11.0 [facility] Blood erythrocytes count (nu mber/volume)Ordered By: Dr. Gutierrez on 08-28-2022 RBC (Bld) [#/Vol] 4.66 10*6/uL 4.2-5.4 [facility] Blood hemoglobin measurement (mass/volume)Ordered By: Dr. Gutierrez on 08-28-2022 Hemoglobin (Bld) [Mass/Vol] 12.7 g/dL 12.0-15.0 [facility] Blood lymphocytes/100 leukoc ytesOrdered By: Dr. Gutierrez on 08-28-2022 Lymphocytes/100 WBC (Bld) 18.9 % 19-41 [facility] Blood monocytes/100 leukocyt esOrdered By: Dr. Gutierrez on 08-28-2022 Monocytes/100 WBC (Bld) 4.9 % 0-10 [facility] Blood platelet mean volumeOr dered By: Dr. Gutierrez on 08-28-2022 Platelet mean volume (Bld) [Entitic vol] 9.7 fL 6.2-12.0 [facility] Determination of erythrocyte mean corpuscular volume (MCV)Ordered By: Dr. Gutierrez on 08-28-2022 MCV (RBC) [Entitic vol] 82.2 fL 81-99 [facility] Hematocrit Auto (Bld) [Volum e fraction]Ordered By: Dr. Gutierrez on 08-28-2022 Hematocrit (Bld) [Volume fraction] 38.3 % 37-47 [facility] Laboratory - Chemistry and C hemistry - challengeOrdered By: Dr. Gutierrez on 08-28-2022 CO2 [Moles/Vol] 28.0 mmol/L 21.0-32.0 [facility] Urea nitrogen/Creatinine [Mass ratio] 17.3 mg/mg 10-20 [facility] Laboratory - Hematology and Cell countsOrdered By: Dr. Gutierrez on 08-28-2022 Erythrocyte distribution width (RBC) [Entitic vol] 42.6 fL 35.1-43.9 [facility] Erythrocyte distribution width (RBC) [Ratio] 14.5 % 11.6-14.6 [facility] Immature granulocytes/100 WBC (Bld) 0.800 % 0.0-0.9 [facility] Comment on above: IG% - Immature Granu locytes (promyelocytes, myelocytes and metamyelocytes) > 1% indicates that a LEFT SHIFT is Present. MCH (RBC) [Entitic mass] 27.3 pg 27.0-32.0 [facility] Nucleated RBC/100 WBC (Bld) [Ratio] 0 % 0-5 [facility] MCHC Auto (RBC) [Mass/Vol]Or dered By: Dr. Gutierrez on 08-28-2022 MCHC (RBC) [Mass/Vol] 33.2 g/dL 32-36 [facility] No Panel InformationOrdered By: Dr. Gutierrez on 08-28-2022 Estimated Creatinine Clearance Calc 55.49 ml/min [facility] Estimated GFR (MDRD) Amer 92 mL/min >60 [facility] Comment on above: GFR Calc Estimated GFR (MDRD) Non-Af Amer 76 mL/min >60 [facility] Comment on above: Non- GFR Calc Platelets bldOrdered By: Dr. Gutierrez on 08-28-2022 Platelets (Bld) [#/Vol] 274 10*3/uL 150-450 [facility] Serum or plasma calcium tracey urement (mass/volume)Ordered By: Dr. Gutierrez on 08-28-2022 Calcium [Mass/Vol] 9.2 mg/dL 8.5-10.1 [facility] Serum or plasma creatinine m easurement (mass/volume)Ordered By: Dr. Gutierrez on 08-28-2022 Creatinine [Mass/Vol] 0.81 mg/dL 0.55-1.02 [facility] Comment on above: The validity of the calculated GFR & GFRAA in patients over 70 years has not been determined. Clinical correlation is essential. Serum or plasma urea nitroge n measurement (mass/volume)Ordered By: Dr. Gutierrez on 08-28-2022 Urea nitrogen [Mass/Vol] 14 mg/dL 7-18 [facility] Thin prep Papanicolaou smear with manual screeningOrdered By: Dr. Gutierrez on 08-28-2022 Thin prep Papanicolaou smear with manual screening 9 5-15 [facility] Basophil percentageOrdered B y: ALAYNA BENAVIDES on 07-12-2022 Bilirubin [Mass/Vol] 0.30 mg/dL 0.20-1.00 [facility] Comment on above: For patients on eltr ombopag therapy, use of Dimension [place] TBIL is not recommended. Chloride [Moles/Vol] 100 mmol/L 98-107 [facility] Cholesterol [Mass/Vol] 135 mg/dL <200 [facility] Comment on above: <200 mg/dL Desirable 200-240 mg/dL Borderline >240 mg/dL High Risk Glucose [Mass/Vol] 144 mg/dL 74-106 [facility] Comment on above: Fasting Glucose resu lt greater than or equal to 126 mg/dL suggests DIABETES MELLITUS per A.D.A. criteria. Potassium [Moles/Vol] 3.9 mmol/L 3.5-5.1 [facility] Protein [Mass/Vol] 7.0 g/dL 6.4-8.2 [facility] Sodium [Moles/Vol] 136 mmol/L 136-145 [facility] Triglyceride [Mass/Vol] 76 mg/dL <199 [facility] Comment on above: The drugs N-Acetylcy steine and Metamizole may falsely depress this assay.Serum Triglycerides Reference Interval Normal <150 mg/dL Borderline high 150 - 199 mg/dL High 200 - 499 mg/dL Very High > or = 500 mg/dL WBC (Bld) [#/Vol] 9.2 10*3/uL 4.4-11.0 [facility] Blood erythrocytes count (nu mber/volume)Ordered By: ALAYNA BENAVIDES on 07-12-2022 RBC (Bld) [#/Vol] 4.90 10*6/uL 4.2-5.4 [facility] Blood hemoglobin measurement (mass/volume)Ordered By: [facility] on 07-12-2022 Hemoglobin (Bld) [Mass/Vol] 13.4 g/dL 12.0-15.0 [facility] Blood platelet mean volumeOr dered By: [facility] on 07-12-2022 Platelet mean volume (Bld) [Entitic vol] 9.9 fL 6.2-12.0 [facility] Determination of erythrocyte mean corpuscular volume (MCV)Ordered By: [facility] on 07-12-2022 MCV (RBC) [Entitic vol] 83.7 fL 81-99 [facility] Hematocrit Auto (Bld) [Volum e fraction]Ordered By: [facility] on 07-12-2022 Hematocrit (Bld) [Volume fraction] 41.0 % 37-47 [facility] Laboratory - Chemistry and C hemistry - challengeOrdered By: [facility] on 07-12-2022 ALP [Catalytic activity/Vol] 99 U/L 45-117 [facility] ALT [Catalytic activity/Vol] 28 U/L 13-56 [facility] CO2 [Moles/Vol] 30.0 mmol/L 21.0-32.0 [facility] Globulin (S) [Mass/Vol] 3.5 g/dL 2.2-4.2 [facility] Urea nitrogen/Creatinine [Mass ratio] 19.8 mg/mg 10-20 [facility] Laboratory - Hematology and Cell countsOrdered By: [facility] on 07-12-2022 Erythrocyte distribution width (RBC) [Entitic vol] 43.6 fL 35.1-43.9 [facility] Erythrocyte distribution width (RBC) [Ratio] 14.3 % 11.6-14.6 [facility] MCH (RBC) [Entitic mass] 27.3 pg 27.0-32.0 [facility] MCHC Auto (RBC) [Mass/Vol]Or dered By: [facility] on 07-12-2022 MCHC (RBC) [Mass/Vol] 32.7 g/dL 32-36 [facility] No Panel InformationOrdered By: [facility] on 07-12-2022 Estimated GFR (MDRD) Amer 107 mL/min >60 [facility] Comment on above: GFR Calc Estimated GFR (MDRD) Non-Af Amer 88 mL/min >60 [facility] Comment on above: Non- GFR Calc Thyroid Stimulating Hormone (TSH) 1.22 uIU/mL 0.358-3.74 [facility] Platelets bldOrdered By: GUERRERO ZHANG HAMILTON on 07-12-2022 Platelets (Bld) [#/Vol] 301 10*3/uL 150-450 [facility] Serum or plasma albumin tracey urement (mass/volume)Ordered By: [facility] on 07-12-2022 Albumin [Mass/Vol] 3.5 g/dL 3.2-5.0 [facility] Serum or plasma albumin/glob ulin mass ratioOrdered By: [facility] on 07-12-2022 Albumin/Globulin [Mass ratio] 1.0 {ratio} 0.9-2.4 [facility] Serum or plasma calcium tracey urement (mass/volume)Ordered By: [facility] on 07-12-2022 Calcium [Mass/Vol] 9.8 mg/dL 8.5-10.1 [facility] Serum or plasma cholesterol in HDL measurement (mass/volume)Ordered By: [facility] on 07-12-2022 Cholesterol in HDL [Mass/Vol] 67 mg/dL >40 [facility] Comment on above: The drugs N-Acetylcy steine and Metamizole may falsely depress this assay. Reference Range HDL <40 mg/dL Low HDL Cholesterol HDL >or= 60 mg/dL High HDL Cholesterol Serum or plasma cholesterol in VLDL measurement (mass/volume)Ordered By: [facility] on 07-12-2022 Cholesterol in VLDL [Mass/Vol] 15 mg/dL 5-40 [facility] Serum or plasma creatinine m easurement (mass/volume)Ordered By: [facility] on 07-12-2022 Creatinine [Mass/Vol] 0.71 mg/dL 0.55-1.02 [facility] Comment on above: The validity of the calculated GFR & GFRAA in patients over 70 years has not been determined. Clinical correlation is essential. Serum or plasma low density lipoprotein (LDL) cholesterol measurement (mass/volume)Ordered By: [facility] on 07-12-2022 Cholesterol in LDL [Mass/Vol] 53 mg/dL 0-130 [facility] Serum or plasma urea nitroge n measurement (mass/volume)Ordered By: [facility] on 07-12-2022 Urea nitrogen [Mass/Vol] 14 mg/dL 7-18 [facility] Thin prep Papanicolaou smear with manual screeningOrdered By: [facility] on 07-12-2022 Thin prep Papanicolaou smear with manual screening 12 U/L 15-37 [facility] Thin prep Papanicolaou smear with manual screening 6 5-15 [facility] Thin prep Papanicolaou smear with manual screening 117.0 mg/L NO RANGE EST. [facility] HPV W/GENOTYPE THIN PREPon 0 07-04-2022 HPV 16 Ag Ql (Unsp spec) Negative Normal Negative for HPV DNA high risk type 16 by PCR [facility] Comment on above: Order Comment: Speci men Type: FLUID SPECIMENOrdering Facility: [facility] Address: [address] [place] [address] Performed By: #### L [id number], HPVHRT ####[facility] [id number] [place] [address] [place] HPV 18 Ag Ql (Unsp spec) Negative Normal Negative for HPV DNA high risk type 18 by PCR [facility] Comment on above: Order Comment: Speci men Type: FLUID SPECIMENOrdering Facility: [facility] Address: [address] [place] [address] Performed By: #### L [id number], HPVHRT ####[facility] [id number] [place] [address] [place] HPV 31+33+35+39+45+51+52+5 6+58+59+66+68 DNA NANI+probe Ql (Cvx) Negative for HPV DNA high risk types: 31,33,35,39,45,51,52,56,58,5 9,66,68 by PCR. Normal Negative for HPV DNA high risk types: 31,33,35,3 9,45,51,52 ,56,58,59, 66,68 by PCR. [facility] Comment on above: Order Comment: Speci men Type: FLUID SPECIMENOrdering Facility: [facility] Address: [address] [place] [address], [place] [address] Performed By: #### L [id number], HPVHRT ####[facility] [id number] [place] [address] [place] PAP TESTon 07-04-2022 ADDENDUM 1: Normal [facility] Comment on above: Order Comment: Speci men Type: FLUID SPECIMENOrdering Facility: [facility] Address: [address] [place] [address], [place] [address] Result Comment: All additional studies are complete and a comprehensive report has been generated. Addendum electronically signed by Inez John MD on 07/09/2022 at 8:16 PM Performed By: #### L [id number], HPVHRT ####[facility] [id number] [place] [address] [place] CASE REPORT Normal [facility] Comment on above: Order Comment: Speci men Type: FLUID SPECIMENOrdering Facility: [facility] Address: [address] [place] [address] Result Comment: Gyne cologic Cytology Report Case: [id number] Authorizing Provider: Kajal Blanton CNP Collected: 07/04/2022 10:15 AM Ordering Location: [facility] Received: 07/05/2022 03:53 PM First Screen: Anna Rivas, CT, ASCP Rescreen: ELKE Ward, ASCP Specimen: Pap Test, ThinPrep, Vaginal Performed By: #### L [id number], HPVHRT ####[facility] [id number] [place] [address] [place] CLINICAL HISTORY, CYTOLOGY, PHOTO FINISHER Routine Exam Normal [facility] Comment on above: Order Comment: Speci men Type: FLUID SPECIMENOrdering Facility: [facility] Address: [address] [place] [address], [place] [address] Result Comment: Hyst erectomy, Total Performed By: #### L [id number], HPVHRT ####[facility] [id number] [place] [address] [place] CYTOLOGY INTERPRETATION PAP Normal [facility] Comment on above: Order Comment: Speci men Type: FLUID SPECIMENOrdering Facility: [facility] Address: [address] [place] [address] Result Comment: Nega tive for Intraepithelial lesion or malignancy. Performed By: #### L [id number], HPVHRT ####[facility] [id number] [address] [place] FINAL DIAGNOSIS A - Vaginal Normal [facility] Comment on above: Order Comment: Speci men Type: FLUID SPECIMENOrdering Facility: [facility] Address: [address] [place] [address] Result Comment: Sati sfactory for interpretation, Limited cellularity Negative for Intraepithelial lesion or malignancy. Performed By: #### L [id number], HPVHRT ####[facility] [id number] [address] [place] FINAL PERFORMING LAB Normal [facility] Comment on above: Order Comment: Speci men Type: FLUID SPECIMENOrdering Facility: [facility] Address: [address] [place] [address] Result Comment: Tech nical component, hotel administrative assistant screening performed at [facility], [address] [facility] [address] CLIA# [id number] Diagnostic interpretation performed at [facility], [address] [facility] [address] CLIA# [id number] Supervisor [place]: Wang Philip M.D. Performed By: #### L [id number], HPVHRT ####[facility] [id number] [place] [address] [place] HPV REFLEX Auto HPV Normal [facility] Comment on above: Order Comment: Speci men Type: FLUID SPECIMENOrdering Facility: [facility] Address: [address] [place] [address], [place] [address] Performed By: #### L [id number], HPVHRT ####[facility] [id number] [place] [address] [place] LMP 04/02/2013 Normal [facility] Comment on above: Order Comment: Speci men Type: FLUID SPECIMENOrdering Facility: [facility] Address: [address] [place] [address] Performed By: #### L [id number], HPVHRT ####[facility] [id number] [place] [address] [place] PAP DISCLAIMER COMMENT The Pap Smear is a screening test for cervical cancer. False negative results occur with all screening tests, emphasizing the need for rescreening at recommended intervals, and clinical correlation. Normal [facility] Comment on above: Order Comment: Speci men Type: FLUID SPECIMENOrdering Facility: [facility] Address: [address] [place] [address] Performed By: #### L [id number], HPVHRT ####[facility] [id number] [place] [address] [place] Basophil percentageOrdered B y: Yvrose Carreon on 05-19-2022 Bilirubin [Mass/Vol] 0.30 mg/dL 0.20-1.00 [facility] Comment on above: For patients on eltr ombopag therapy, use of Dimension [place] TBIL is not recommended. Chloride [Moles/Vol] 102 mmol/L 98-107 [facility] Cholesterol [Mass/Vol] 122 mg/dL <200 [facility] Comment on above: <200 mg/dL Desirable 200-240 mg/dL Borderline >240 mg/dL High Risk Glucose [Mass/Vol] 119 mg/dL 74-106 [facility] Comment on above: Fasting Glucose resu lt from 100 to 125 mg/dL suggests IMPAIRED HOMEOSTASIS per A.D.A. criteria. Potassium [Moles/Vol] 3.9 mmol/L 3.5-5.1 [facility] Protein [Mass/Vol] 6.9 g/dL 6.4-8.2 [facility] Sodium [Moles/Vol] 138 mmol/L 136-145 [facility] Triglyceride [Mass/Vol] 133 mg/dL <199 [facility] Comment on above: The drugs N-Acetylcy steine and Metamizole may falsely depress this assay.Serum Triglycerides Reference Interval Normal <150 mg/dL Borderline high 150 - 199 mg/dL High 200 - 499 mg/dL Very High > or = 500 mg/dL WBC (Bld) [#/Vol] 9.3 10*3/uL 4.4-11.0 [facility] Blood erythrocytes count (nu mber/volume)Ordered By: Yvrose Carreon on 05-19-2022 RBC (Bld) [#/Vol] 4.74 10*6/uL 4.2-5.4 [facility] Blood hemoglobin measurement (mass/volume)Ordered By: Yvroes Carreon on 05-19-2022 Hemoglobin (Bld) [Mass/Vol] 12.9 g/dL 12.0-15.0 [facility] Blood platelet mean volumeOr dered By: Yvrose Carreon on 05-19-2022 Platelet mean volume (Bld) [Entitic vol] 9.6 fL 6.2-12.0 [facility] Determination of erythrocyte mean corpuscular volume (MCV)Ordered By: Yvrose Carreon on 05-19-2022 MCV (RBC) [Entitic vol] 82.9 fL 81-99 [facility] Hematocrit Auto (Bld) [Volum e fraction]Ordered By: Yvrose Carreon on 05-19-2022 Hematocrit (Bld) [Volume fraction] 39.3 % 37-47 [facility] Laboratory - Chemistry and C hemistry - challengeOrdered By: Yvrose Carreon on 05-19-2022 ALP [Catalytic activity/Vol] 118 U/L 45-117 [facility] ALT [Catalytic activity/Vol] 22 U/L 13-56 [facility] CO2 [Moles/Vol] 28.0 mmol/L 21.0-32.0 [facility] Globulin (S) [Mass/Vol] 3.1 g/dL 2.2-4.2 [facility] Urea nitrogen/Creatinine [Mass ratio] 31.1 mg/mg 10-20 [facility] Laboratory - Hematology and Cell countsOrdered By: Yvrose Carreon on 05-19-2022 Erythrocyte distribution width (RBC) [Entitic vol] 44.8 fL 35.1-43.9 [facility] Erythrocyte distribution width (RBC) [Ratio] 15.1 % 11.6-14.6 [facility] MCH (RBC) [Entitic mass] 27.2 pg 27.0-32.0 [facility] MCHC Auto (RBC) [Mass/Vol]Or dered By: Yvrose Carreon on 05-19-2022 MCHC (RBC) [Mass/Vol] 32.8 g/dL 32-36 [facility] No Panel InformationOrdered By: Yvrose Carreon on 05-19-2022 Estimated GFR (MDRD) Amer 88 mL/min >60 [facility] Comment on above: GFR Calc Estimated GFR (MDRD) Non-Af Amer 73 mL/min >60 [facility] Comment on above: Non- GFR Calc Thyroid Stimulating Hormone (TSH) 2.38 uIU/mL 0.358-3.74 [facility] Platelets bldOrdered By: Varsha Carreon on 05-19-2022 Platelets (Bld) [#/Vol] 261 10*3/uL 150-450 [facility] Serum or plasma albumin tracey urement (mass/volume)Ordered By: Yvrose Carreon on 05-19-2022 Albumin [Mass/Vol] 3.8 g/dL 3.2-5.0 [facility] Serum or plasma albumin/glob ulin mass ratioOrdered By: Yvrose Carreon on 05-19-2022 Albumin/Globulin [Mass ratio] 1.2 {ratio} 0.9-2.4 [facility] Serum or plasma calcium tracey urement (mass/volume)Ordered By: Yvrose Carreon on 05-19-2022 Calcium [Mass/Vol] 9.5 mg/dL 8.5-10.1 [facility] Serum or plasma cholesterol in HDL measurement (mass/volume)Ordered By: Yvrose Carreon on 05-19-2022 Cholesterol in HDL [Mass/Vol] 53 mg/dL >40 [facility] Comment on above: The drugs N-Acetylcy steine and Metamizole may falsely depress this assay. Reference Range HDL <40 mg/dL Low HDL Cholesterol HDL >or= 60 mg/dL High HDL Cholesterol Serum or plasma cholesterol in VLDL measurement (mass/volume)Ordered By: Yvrose Carreon on 05-19-2022 Cholesterol in VLDL [Mass/Vol] 27 mg/dL 5-40 [facility] Serum or plasma creatinine m easurement (mass/volume)Ordered By: Yvrose Carreon on 05-19-2022 Creatinine [Mass/Vol] 0.84 mg/dL 0.55-1.02 [facility] Comment on above: The validity of the calculated GFR & GFRAA in patients over 70 years has not been determined. Clinical correlation is essential. Serum or plasma low density lipoprotein (LDL) cholesterol measurement (mass/volume)Ordered By: Yvrose Carreon on 05-19-2022 Cholesterol in LDL [Mass/Vol] 42 mg/dL 0-130 [facility] Serum or plasma urea nitroge n measurement (mass/volume)Ordered By: Yvrose Carreon on 05-19-2022 Urea nitrogen [Mass/Vol] 26 mg/dL 7-18 [facility] Thin prep Papanicolaou smear with manual screeningOrdered By: Yvrose [place] on 05-19-2022 Thin prep Papanicolaou smear with manual screening 13 U/L 15-37 [facility] Thin prep Papanicolaou smear with manual screening 8 5-15 [facility] Thin prep Papanicolaou smear with manual screening 13.6 mg/L NO RANGE EST. [facility] Basophil percentageon 2021 Chloride [Moles/Vol] 101 mmol/L 98-107 [facility] Work Phone: Glucose [Mass/Vol] 222 mg/dL 74-106 [facility] Work Phone: Comment on above: Glucose result great er than or equal to 200 mg/dLsuggests DIABETES MELLITUS per A.D.A. criteria. Potassium [Moles/Vol] 3.9 mmol/L 3.5-5.1 [facility] Work Phone: Sodium [Moles/Vol] 137 mmol/L 136-145 [facility] Work Phone: Laboratory - Chemistry and C hemistry - challengeon 09-29-2021 CO2 [Moles/Vol] 29.0 mmol/L 21.0-32.0 [facility] Work Phone: Urea nitrogen/Creatinine [Mass ratio] 24.6 mg/mg 10-20 [facility] Work Phone: No Panel Informationon 09-29 Estimated GFR (MDRD) Amer 91 mL/min >60 [facility] Work Phone: Comment on above: GFR Calc Estimated GFR (MDRD) Non-Af Amer 76 mL/min >60 [facility] Work Phone: Comment on above: Non- GFR Calc Serum or plasma calcium tracey urement (mass/volume)on 09-29-2021 Calcium [Mass/Vol] 10.0 mg/dL 8.5-10.1 [facility] Work Phone: Serum or plasma creatinine m easurement (mass/volume)on 09-29-2021 Creatinine [Mass/Vol] 0.81 mg/dL 0.55-1.02 [facility] Work Phone: Comment on above: The validity of the calculated GFR & GFRAA in patients over 70 years has not been determined. Clinical correlation is essential. Serum or plasma urea nitroge n measurement (mass/volume)on 09-29-2021 Urea nitrogen [Mass/Vol] 20 mg/dL 7-18 [facility] Work Phone: Thin prep Papanicolaou smear with manual screeningon 09-29-2021 Thin prep Papanicolaou smear with manual screening 7 5-15 [facility] Work Phone: Basophil percentageon 2021 Chloride [Moles/Vol] 104 mmol/L 98-107 [facility] Work [facility]: Glucose [Mass/Vol] 138 mg/dL 74-106 [facility] Work Phone: Comment on above: Fasting Glucose resu lt greater than or equal to 126 mg/dL suggests DIABETES MELLITUS per A.D.A. criteria. Potassium [Moles/Vol] 4.0 mmol/L 3.5-5.1 [facility] Work Phone: [phone] Sodium [Moles/Vol] 139 mmol/L 136-145 [facility] Work Phone: WBC (Bld) [#/Vol] 8.9 10*3/uL 4.4-11.0 [facility] Work Phone: Blood erythrocytes count (nu mber/volume)on 09-13-2021 RBC (Bld) [#/Vol] 5.11 10*6/uL 4.2-5.4 [facility] Work Phone: Blood hemoglobin measurement (mass/volume)on 09-13-2021 Hemoglobin (Bld) [Mass/Vol] 14.0 g/dL 12.0-15.0 [facility] Work Phone: Blood platelet mean volumeon 09-13-2021 Platelet mean volume (Bld) [Entitic vol] 10.5 fL 6.2-12.0 [facility] Work Phone: Determination of erythrocyte mean corpuscular volume (MCV)on 09-13-2021 MCV (RBC) [Entitic vol] 82.8 fL 81-99 [facility] Work Phone: Hematocrit Auto (Bld) [Volum e fraction]on 09-13-2021 Hematocrit (Bld) [Volume fraction] 42.3 % 37-47 [facility] Work Phone: INR in Blood by Coagulation assayon 09-13-2021 INR Coag (Bld) [Relative time] 0.9 {INR} [facility] Work Phone: Laboratory - Chemistry and C hemistry - challengeon 09-13-2021 CO2 [Moles/Vol] 32.0 mmol/L 21.0-32.0 [facility] Work Phone: Urea nitrogen/Creatinine [Mass ratio] 26.2 mg/mg 10-20 [facility] Work Phone: Laboratory - Coagulationon 0 09-13-2021 aPTT Coag (Bld) [Time] 27.0 s 24.1-36.2 brian [facility] Work Phone: PT Coag (PPP) [Time] 11.7 s 11.7-14.[address] [facility] Work Phone: Laboratory - Hematology and Cell countson 09-13-2021 Erythrocyte distribution width (RBC) [Entitic vol] 44.3 fL 35.1-43.9 [facility] Work Phone: Erythrocyte distribution width (RBC) [Ratio] 14.9 % 11.6-14.6 [facility] Work Phone: MCH (RBC) [Entitic mass] 27.4 pg 27.0-32.0 [facility] Work Phone: MCHC Auto (RBC) [Mass/Vol]on 09-13-2021 MCHC (RBC) [Mass/Vol] 33.1 g/dL 32-36 [facility] Work Phone: No Panel Informationon 09-13 Estimated GFR (MDRD) Amer 98 mL/min >60 [facility] Work Phone: Comment on above: GFR Calc Estimated GFR (MDRD) Non-Af Amer 81 mL/min >60 [facility] Work Phone: Comment on above: Non- GFR Calc Platelets bldon 09-13-2021 Platelets (Bld) [#/Vol] 282 10*3/uL 150-450 [facility] Work Phone: Serum or plasma calcium tracey urement (mass/volume)on 09-13-2021 Calcium [Mass/Vol] 9.4 mg/dL 8.5-10.1 [facility] Work Phone: Serum or plasma creatinine m easurement (mass/volume)on 09-13-2021 Creatinine [Mass/Vol] 0.76 mg/dL 0.55-1.02 [facility] Work Phone: Comment on above: The validity of the calculated GFR & GFRAA in patients over 70 years has not been determined. Clinical correlation is essential. Serum or plasma urea nitroge n measurement (mass/volume)on 09-13-2021 Urea nitrogen [Mass/Vol] 20 mg/dL 7-18 [facility] Work Phone: Thin prep Papanicolaou smear with manual screeningon 09-13-2021 Thin prep Papanicolaou smear with manual screening 3 -15 [facility] Work Phone: CNOVon 05-31-2020 CNOV Office Visit (AGPOB1 ) DAPHNEY BENSON ([id number]) 1960 F Date Time Provider Department 05/31/20 11:00 AM WILLAM GRAVES AGPOB1 During your visit today, we recorded the following information about you: Respiration Weight Height 18/minute 107.5 kg 1.6 m Sandy Montanez CMA 05/31/2020 11:30 AM Signed REVIEW OF SYSTEMS: GENERAL: Well developed, well nourished. No acute distress PAIN: Negative for pain, history of chronic pain or current treatment for chronic pain conditions CARDIOVASCULAR: Hypertension MSK: Negative for joint swelling SKIN: Negative for lesions, rash, itching, metal sensitivity NEURO: Negative for seizure, trauma, numbness/tingling of extremities. ENDOCRINE: Positive for diabetic associated symptoms HEMATOLOGY: Negative for excessive bleeding, clots, bleeding disorders. Willam Graves MD 05/31/2020 11:30 AM Signed 05/31/2020 RE: Daphney Benson DATE OF : 1960 Vitals: Resp 18 Ht 5' 3 (1.60m) Wt 237 lb (107.5kg) BMI 41.99 kg/(m2). FOLLOW UP VISIT: Fracture right tibial plateau, dislocation right ankle open, fracture proximal phalanx left thumb HPI: She is having much less discomfort in her right lower extremity. She has been able to resume ambulation. She still has a small open area over the lateral aspect of the right ankle. He is not having any discomfort in her left hand and has resumed normal activities. 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 MRSA. hospitalized for abdominal abscesses - PAST SURGICAL HISTORY OF c/s - TOTAL ABDOM HYSTERECTOMY 2003 abnormal bleeding Social History Tobacco Use - Smoking status: Current Every Day Smoker Packs/day: 1.00 Years: 40.00 Pack years: 40.00 Last attempt to quit: 06/16/2010 Years since quittin.9 - Smokeless tobacco: Never Used Substance Use Topics - Alcohol use: Yes Comment: rare - Drug use: No ALLERGIES Allergen Reactions - Isoniazid Other: See Comments Chemically induced hepatitis. Patient was hospitalized. Current Medications: Current Outpatient Medications Medication Sig Dispense Refill - polyethylene glycol 3350 (MIRALAX) 17 gram/dose powder Take 17 g by mouth once daily. - metFORMIN (GLUCOPHAGE) 500 mg tablet Take 250 mg by mouth daily with dinner. In addition to 500mg in the morning - fluticasone (FLONASE) 50 mcg/actuation nasal spray Use 1 [place] in each nostril once daily. - losartan (COZAAR) 25 mg tablet Take 25 mg by mouth once daily. - ubidecarenone Q-10 (COENZYME Q-10) 10 mg cap Take 10 mg by mouth once daily. - sertraline (ZOLOFT) 50 mg tablet Take 1 tablet by mouth once daily. 2 - cholecalciferol, Vitamin D3, (VITAMIN D3) 1,250 mcg (50,000 unit) cap capsule Take 50,000 Units by mouth every Sunday. 2 - omeprazole (PRILOSEC) 20 mg capsule Take 1 capsule by mouth once daily. 0 - metFORMIN (GLUCOPHAGE) 500 mg tablet Take 1 tablet by mouth once daily. In addition to 250mg in the evening 2 - montelukast (SINGULAIR) 10 mg tablet Take 1 tablet by mouth once daily. 2 - Hydrochlorothiazide 12.5 mg capsule Take 1 capsule by mouth once daily. 90 capsule 1 - budesonide-formoterol (SYMBICORT) 160-4.5 mcg/actuation inhaler Inhale 2 Puffs as instructed twice daily. 6 Inhaler 1 - albuterol HFA (VENTOLIN HFA) 90 mcg/actuation inhaler Inhale 2 Puffs as instructed every 4 hours as needed (FOR COUGH OR WHEEZE). 3 Inhaler 1 - naproxen (NAPROSYN) 500 mg tablet Take 1 tablet by mouth twice daily as needed (pain/inflammation, take with food.). 180 tablet 3 - ketoconazole (NIZORAL) 2 % cream Apply 1 application to affected area twice daily. 60 g 1 - VITAMIN B COMPLEX (B COMPLEX 1 ORAL) Take 1 tablet by mouth once daily. - multivitamin tablet Take 1 tablet by mouth once daily. No current facility-administered medications for this visit. PHYSICAL EXAMINATION: She has good range of motion of her left hand. There is good rough rounder machine. There is no tenderness over the ulnar aspect of the left thumb. The right knee shows good range of motion. The incision is healed nicely. No instability is noted on varus valgus stress. The right ankle has good range of motion. No instability is noted on anterior posterior or varus valgus stress. She has no pain with motion. There is a small open area over the lateral aspect of the ankle in the region of the open wound. Currently following this with a foot doctor. RADIOGRAPHIC EXAMINATION: See note IMPRESSION: Fracture left thumb proximal phalanx, open dislocation right ankle, fracture right tibial plateau PLAN: She should continue with ambulation as tolerated. I am releasing her to further follow-up. Willam Graves MD Referring Provider: [facility] CONSULTS-EMERGENCY GEN SURG [[id number]] Allergies As of Date: 05/31/2020 Noted Allergy Reaction ISONIAZID 07/11/2013 14 - Other: See Comments Comments: Chemically induced hepatitis. Patient was hospitalized. Date Reviewed: 05/31/2020 Reviewed by: Willam Graves - Fully Assessed Reason for Visit: Established Patient [175] Follow Up [171] Primary Visit Diagnosis:Tibial plateau fracture, right, closed, with routine healing, subsequent encounter [S82.141D] Other Visit Diagnoses:Dislocation of right ankle joint, subsequent encounter [S93.04XD] Gamekeeper's thumb of left hand, subsequent encounter [S53.32XD] Order(s):XR KNEE GENERAL 4V AP BOTH/PA BOTH/LAT/MERC RT [[id number]] Order #: [id number] XR ANKLE 2V AP/LAT RT [[id number]] Order #: [id number] XR HAND 2V AP/LAT LT [[id number]] Order #: [id number] Prescriptions as of 05/31/2020 Sig: POLYETHYLENE GLYCOL 3350 17 G* Take 17 g by mouth once daily. METFORMIN 500 MG TABLET Take 250 mg by mouth daily wi* FLUTICASONE PROPIONATE 50 MCG* Use 1 [place] in each nostril o* LOSARTAN 25 MG TABLET Take 25 mg by mouth once aditi* COENZYME Q10 10 MG CAPSULE Take 10 mg by mouth once aditi* SERTRALINE 50 MG TABLET Take 1 tablet by mouth once d* CHOLECALCIFEROL (VITAMIN D3) * Take 50,000 Units by mouth ev* OMEPRAZOLE 20 MG CAPSULE,CRISTIANA* Take 1 capsule by mouth once * METFORMIN 500 MG TABLET Take 1 tablet by mouth once d* MONTELUKAST 10 MG TABLET Take 1 tablet by mouth once d* HYDROCHLOROTHIAZIDE 12.5 MG C* Take 1 capsule by mouth once * BUDESONIDE-FORMOTEROL HFA 160* Inhale 2 Puffs as instructed * ALBUTEROL SULFATE HFA 90 MCG/* Inhale 2 Puffs as instructed * NAPROXEN 500 MG TABLET Take 1 tablet by mouth twice * KETOCONAZOLE 2 % TOPICAL CREAM Apply 1 application to affect* B COMPLEX 1 ORAL Take 1 tablet by mouth once d* MULTIVITAMIN TABLET Take 1 tablet by mouth once d* Problem List As Of Date 05/31/2020 Noted Resolved Positive PPD [R76.11] 07/31/2013 Urge incontinence [N39.41] 07/31/2013 HTN (hypertension) [I10] 07/31/2013 Asthma [J45.909] 07/31/2013 Backache, unspecified [M54.9] 01/02/2014 Other chronic pain [G89.29] 01/02/2014 Morbid obesity due to excess calories (HCC) [E6*03/31/2015 GERD (gastroesophageal reflux disease) [K21.9] 03/31/2015 OAB (overactive bladder) [N32.81] 03/31/2015 Primary osteoarthritis of right knee [M17.11] 11/30/2015 Chronic pain of right knee [M25.561, G89.29] 11/30/2015 Colonic polyp [K63.5] 05/26/2016 Open right ankle fracture [S82.891B] 02/18/2020 02/24/2020 Elevated LFTs [R79.89] 02/19/2020 02/24/2020 Liver laceration, grade I [S36.114A] 02/19/2020 Closed fracture of multiple ribs of left side [*02/19/2020 Closed fracture of body of sternum [S22.22XA] 02/19/2020 Closed fracture of right tibial plateau [S82.14*02/19/2020 02/24/2020 Elevated lipase [R74.8] 02/19/2020 02/24/2020 Effusion of right knee [M25.461] 02/19/2020 Obesity, Class III, BMI >= 40 [E66.01] 02/20/2020 Hypokalemia [E87.6] 02/20/2020 02/24/2020 Acute urinary retention [R33.8] 02/20/2020 02/24/2020 Nicotine use disorder, F17.2 [F17.200] 02/21/2020 Disposition: Return in about 1 week (around 06/07/2020), or if symptoms worsen or fail to improve. Follow-up and Disposition History Recorded Encounter Status:Closed by WILLAM GRAVES MD on 05/31/20 [facility] PROGRESSon 05-31-2020 PROGRESS HNO ID: [id number] Author: Willam Graves Service: ? Author Type: Physician Type: Progress Notes Filed: 05/31/2020 11:30 AM Note Text: 05/31/2020 RE: Daphney Benson DATE OF : 1960 Vitals: Resp 18 Ht 5' 3 (1.60m) Wt 237 lb (107.5kg) BMI 41.99 kg/(m2). FOLLOW UP VISIT: Fracture right tibial plateau, dislocation right ankle open, fracture proximal phalanx left thumb HPI: She is having much less discomfort in her right lower extremity. She has been able to resume ambulation. She still has a small open area over the lateral aspect of the right ankle. He is not having any discomfort in her left hand and has resumed normal activities. 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 MRSA. hospitalized for abdominal abscesses - PAST SURGICAL HISTORY OF c/s - TOTAL ABDOM HYSTERECTOMY 2003 abnormal bleeding Social History Tobacco Use - Smoking status: Current Every Day Smoker Packs/day: 1.00 Years: 40.00 Pack years: 40.00 Last attempt to quit: 06/16/2010 Years since quittin.9 - Smokeless tobacco: Never Used Substance Use Topics - Alcohol use: Yes Comment: rare - Drug use: No ALLERGIES Allergen Reactions - Isoniazid Other: See Comments Chemically induced hepatitis. Patient was hospitalized. Current Medications: Current Outpatient Medications Medication Sig Dispense Refill - polyethylene glycol 3350 (MIRALAX) 17 gram/dose powder Take 17 g by mouth once daily. - metFORMIN (GLUCOPHAGE) 500 mg tablet Take 250 mg by mouth daily with dinner. In addition to 500mg in the morning - fluticasone (FLONASE) 50 mcg/actuation nasal spray Use 1 [place] in each nostril once daily. - losartan (COZAAR) 25 mg tablet Take 25 mg by mouth once daily. - ubidecarenone Q-10 (COENZYME Q-10) 10 mg cap Take 10 mg by mouth once daily. - sertraline (ZOLOFT) 50 mg tablet Take 1 tablet by mouth once daily. 2 - cholecalciferol, Vitamin D3, (VITAMIN D3) 1,250 mcg (50,000 unit) cap capsule Take 50,000 Units by mouth every Sunday. 2 - omeprazole (PRILOSEC) 20 mg capsule Take 1 capsule by mouth once daily. 0 - metFORMIN (GLUCOPHAGE) 500 mg tablet Take 1 tablet by mouth once daily. In addition to 250mg in the evening 2 - montelukast (SINGULAIR) 10 mg tablet Take 1 tablet by mouth once daily. 2 - Hydrochlorothiazide 12.5 mg capsule Take 1 capsule by mouth once daily. 90 capsule 1 - budesonide-formoterol (SYMBICORT) 160-4.5 mcg/actuation inhaler Inhale 2 Puffs as instructed twice daily. 6 Inhaler 1 - albuterol HFA (VENTOLIN HFA) 90 mcg/actuation inhaler Inhale 2 Puffs as instructed every 4 hours as needed (FOR COUGH OR WHEEZE). 3 Inhaler 1 - naproxen (NAPROSYN) 500 mg tablet Take 1 tablet by mouth twice daily as needed (pain/inflammation, take with food.). 180 tablet 3 - ketoconazole (NIZORAL) 2 % cream Apply 1 application to affected area twice daily. 60 g 1 - VITAMIN B COMPLEX (B COMPLEX 1 ORAL) Take 1 tablet by mouth once daily. - multivitamin tablet Take 1 tablet by mouth once daily. No current facility-administered medications for this visit. PHYSICAL EXAMINATION: She has good range of motion of her left hand. There is good rough rounder machine. There is no tenderness over the ulnar aspect of the left thumb. The right knee shows good range of motion. The incision is healed nicely. No instability is noted on varus valgus stress. The right ankle has good range of motion. No instability is noted on anterior posterior or varus valgus stress. She has no pain with motion. There is a small open area over the lateral aspect of the ankle in the region of the open wound. Currently following this with a foot doctor. RADIOGRAPHIC EXAMINATION: See note IMPRESSION: Fracture left thumb proximal phalanx, open dislocation right ankle, fracture right tibial plateau PLAN: She should continue with ambulation as tolerated. I am releasing her to further follow-up. Willam Graves MD [facility] PROGRESS HNO ID: [id number] Author: Sandy Montanez Service: ? Author Type: Stem Threshing Machine Operator Type: Progress Notes Filed: 05/31/2020 11:30 AM Note Text: REVIEW OF SYSTEMS: GENERAL: Well developed, well nourished. No acute distress PAIN: Negative for pain, history of chronic pain or current treatment for chronic pain conditions CARDIOVASCULAR: Hypertension MSK: Negative for joint swelling SKIN: Negative for lesions, rash, itching, metal sensitivity NEURO: Negative for seizure, trauma, numbness/tingling of extremities. ENDOCRINE: Positive for diabetic associated symptoms HEMATOLOGY: Negative for excessive bleeding, clots, bleeding disorders. [facility] CNPCarmen 05-18-2020 CNPN Telephone (AGPOB1) DAPHNEY BENSON ([id number]) 1960 F Date Time Provider Department 05/18/20 WILLAM GRAVES AGPOB1 During your visit today, we recorded the following information about you: Diane Duckworth 05/18/2020 9:05 AM Signed Attached is an order for a wheeled walker (rollator) for your approval. Her insurance company will cover the cost with her diagnosis. (to [facility] [employer] [facility] , [email or web address] Diane Duckworth 05/18/2020 2:06 PM Signed Faxed order for Rollator to [employer], per her insurance company's request. Diane Duckworth May 18, 2020 2:06 PM Allergies As of Date: 05/18/2020 Noted Allergy Reaction ISONIAZID 07/11/2013 14 - Other: See Comments Comments: Chemically induced hepatitis. Patient was hospitalized. Date Reviewed: 05/03/2020 Reviewed by: Willam Graves - Fully Assessed Reason for Visit: Orders [681] Cmt: Rollator Primary Visit Diagnosis:Tibial plateau fracture, right, closed, with routine healing, subsequent encounter [S82.141D] Other Visit Diagnosis:Dislocation of right ankle joint, subsequent encounter [S93.04XD] Order(s):WALKER, WHEELED, SEAT [[id number]] Order #: [id number] Prescriptions as of 05/18/2020 Sig: POLYETHYLENE GLYCOL 3350 17 G* Take 17 g by mouth once daily. METFORMIN 500 MG TABLET Take 250 mg by mouth daily wi* FLUTICASONE PROPIONATE 50 MCG* Use 1 [place] in each nostril o* LOSARTAN 25 MG TABLET Take 25 mg by mouth once aditi* COENZYME Q10 10 MG CAPSULE Take 10 mg by mouth once aditi* SERTRALINE 50 MG TABLET Take 1 tablet by mouth once d* CHOLECALCIFEROL (VITAMIN D3) * Take 50,000 Units by mouth ev* OMEPRAZOLE 20 MG CAPSULE,CRISTIANA* Take 1 capsule by mouth once * METFORMIN 500 MG TABLET Take 1 tablet by mouth once d* MONTELUKAST 10 MG TABLET Take 1 tablet by mouth once d* HYDROCHLOROTHIAZIDE 12.5 MG C* Take 1 capsule by mouth once * BUDESONIDE-FORMOTEROL HFA 160* Inhale 2 Puffs as instructed * ALBUTEROL SULFATE HFA 90 MCG/* Inhale 2 Puffs as instructed * NAPROXEN 500 MG TABLET Take 1 tablet by mouth twice * KETOCONAZOLE 2 % TOPICAL CREAM Apply 1 application to affect* B COMPLEX 1 ORAL Take 1 tablet by mouth once d* MULTIVITAMIN TABLET Take 1 tablet by mouth once d* Problem List As Of Date 05/18/2020 Noted Resolved Positive PPD [R76.11] 07/31/2013 Urge incontinence [N39.41] 07/31/2013 HTN (hypertension) [I10] 07/31/2013 Asthma [J45.909] 07/31/2013 Backache, unspecified [M54.9] 01/02/2014 Other chronic pain [G89.29] 01/02/2014 Morbid obesity due to excess calories (HCC) [E6*03/31/2015 GERD (gastroesophageal reflux disease) [K21.9] 03/31/2015 OAB (overactive bladder) [N32.81] 03/31/2015 Primary osteoarthritis of right knee [M17.11] 11/30/2015 Chronic pain of right knee [M25.561, G89.29] 11/30/2015 Colonic polyp [K63.5] 05/26/2016 Open right ankle fracture [S82.891B] 02/18/2020 02/24/2020 Elevated LFTs [R79.89] 02/19/2020 02/24/2020 Liver laceration, grade I [S36.114A] 02/19/2020 Closed fracture of multiple ribs of left side [*02/19/2020 Closed fracture of body of sternum [S22.22XA] 02/19/2020 Closed fracture of right tibial plateau [S82.14*02/19/2020 02/24/2020 Elevated lipase [R74.8] 02/19/2020 02/24/2020 Effusion of right knee [M25.461] 02/19/2020 Obesity, Class III, BMI >= 40 [E66.01] 02/20/2020 Hypokalemia [E87.6] 02/20/2020 02/24/2020 Acute urinary retention [R33.8] 02/20/2020 02/24/2020 Nicotine use disorder, F17.2 [F17.200] 02/21/2020 Encounter Status:Closed by WILLAM GRAVES MD on 05/18/20 [facility] Telephone (AGPOB1) DAPHNEY BENSON ([id number]) 1960 F Date Time Provider Department 05/04/20 WILLAM GRAVES AGPOB1 During your visit today, we recorded the following information about you: Diane Duckworth 05/04/2020 12:56 PM Signed Daphney finished up her Home Care PT/OT today and is requesting to take outpatient PT. Attached is an order for your approval. Allergies As of Date: 05/04/2020 Noted Allergy Reaction ISONIAZID 07/11/2013 14 - Other: See Comments Comments: Chemically induced hepatitis. Patient was hospitalized. Date Reviewed: 05/03/2020 Reviewed by: Willam Graves - Fully Assessed Reason for Visit: Orders [681] Cmt: Physical Therapy Primary Visit Diagnosis:Tibial plateau fracture, right, closed, with routine healing, subsequent encounter [S82.141D] Other Visit Diagnosis:Dislocation of right ankle joint, subsequent encounter [S93.04XD] Order(s):CONSULT TO PHYSICAL THERAPY [9032] Order #: [id number]: 1 FUTURE CONSULT TO PHYSICAL THERAPY (AG) [[id number]] Order #: [id number]: 1 Prescriptions as of 05/04/2020 Sig: POLYETHYLENE GLYCOL 3350 17 G* Take 17 g by mouth once daily. METFORMIN 500 MG TABLET Take 250 mg by mouth daily wi* FLUTICASONE PROPIONATE 50 MCG* Use 1 [place] in each nostril o* LOSARTAN 25 MG TABLET Take 25 mg by mouth once aditi* COENZYME Q10 10 MG CAPSULE Take 10 mg by mouth once aditi* SERTRALINE 50 MG TABLET Take 1 tablet by mouth once d* CHOLECALCIFEROL (VITAMIN D3) * Take 50,000 Units by mouth ev* OMEPRAZOLE 20 MG CAPSULE,CRISTIANA* Take 1 capsule by mouth once * METFORMIN 500 MG TABLET Take 1 tablet by mouth once d* MONTELUKAST 10 MG TABLET Take 1 tablet by mouth once d* HYDROCHLOROTHIAZIDE 12.5 MG C* Take 1 capsule by mouth once * BUDESONIDE-FORMOTEROL HFA 160* Inhale 2 Puffs as instructed * ALBUTEROL SULFATE HFA 90 MCG/* Inhale 2 Puffs as instructed * NAPROXEN 500 MG TABLET Take 1 tablet by mouth twice * KETOCONAZOLE 2 % TOPICAL CREAM Apply 1 application to affect* B COMPLEX 1 ORAL Take 1 tablet by mouth once d* MULTIVITAMIN TABLET Take 1 tablet by mouth once d* Problem List As Of Date 05/04/2020 Noted Resolved Positive PPD [R76.11] 07/31/2013 Urge incontinence [N39.41] 07/31/2013 HTN (hypertension) [I10] 07/31/2013 Asthma [J45.909] 07/31/2013 Backache, unspecified [M54.9] 01/02/2014 Other chronic pain [G89.29] 01/02/2014 Morbid obesity due to excess calories (HCC) [E6*03/31/2015 GERD (gastroesophageal reflux disease) [K21.9] 03/31/2015 OAB (overactive bladder) [N32.81] 03/31/2015 Primary osteoarthritis of right knee [M17.11] 11/30/2015 Chronic pain of right knee [M25.561, G89.29] 11/30/2015 Colonic polyp [K63.5] 05/26/2016 Open right ankle fracture [S82.891B] 02/18/2020 02/24/2020 Elevated LFTs [R79.89] 02/19/2020 02/24/2020 Liver laceration, grade I [S36.114A] 02/19/2020 Closed fracture of multiple ribs of left side [*02/19/2020 Closed fracture of body of sternum [S22.22XA] 02/19/2020 Closed fracture of right tibial plateau [S82.14*02/19/2020 02/24/2020 Elevated lipase [R74.8] 02/19/2020 02/24/2020 Effusion of right knee [M25.461] 02/19/2020 Obesity, Class III, BMI >= 40 [E66.01] 02/20/2020 Hypokalemia [E87.6] 02/20/2020 02/24/2020 Acute urinary retention [R33.8] 02/20/2020 02/24/2020 Nicotine use disorder, F17.2 [F17.200] 02/21/2020 Encounter Status:Closed by DIANE DUCKWORTH on 05/04/20 [facility] Rian 05-03-2020 CNOV Office Visit (AGPOB1 ) DAPHNEY BENSON ([id number]) 1960 F Date Time Provider Department 05/03/20 11:15 AM WILLAM GRAVES During your visit today, we recorded the following information about you: Respiration Weight Height 14/minute 107.5 kg 1.6 m Willam Graves MD 05/03/2020 11:46 AM Signed 05/03/2020 RE: Daphney Benson DATE OF : 1960 Vitals: Resp 14 Ht 5' 3 (1.60m) Wt 237 lb (107.5kg) BMI 41.99 kg/(m2). FOLLOW UP VISIT: Fracture right tibial plateau, dislocation right ankle, fracture proximal phalanx left thumb HPI: She has been able to resume some ambulation involving the right lower extremity. She continues to have some discomfort in the lateral aspect of the right ankle. Not having significant knee pain. She is also not having significant discomfort in her left hand. 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 MRSA. hospitalized for abdominal abscesses - PAST SURGICAL HISTORY OF c/s - TOTAL ABDOM HYSTERECTOMY 2003 abnormal bleeding Social History Tobacco Use - Smoking status: Current Every Day Smoker Packs/day: 1.00 Years: 40.00 Pack years: 40.00 Last attempt to quit: 06/16/2010 Years since quittin.8 - Smokeless tobacco: Never Used Substance Use Topics - Alcohol use: Yes Comment: rare - Drug use: No ALLERGIES Allergen Reactions - Isoniazid Other: See Comments Chemically induced hepatitis. Patient was hospitalized. Current Medications: Current Outpatient Medications Medication Sig Dispense Refill - polyethylene glycol 3350 (MIRALAX) 17 gram/dose powder Take 17 g by mouth once daily. - metFORMIN (GLUCOPHAGE) 500 mg tablet Take 250 mg by mouth daily with dinner. In addition to 500mg in the morning - fluticasone (FLONASE) 50 mcg/actuation nasal spray Use 1 [place] in each nostril once daily. - losartan (COZAAR) 25 mg tablet Take 25 mg by mouth once daily. - ubidecarenone Q-10 (COENZYME Q-10) 10 mg cap Take 10 mg by mouth once daily. - sertraline (ZOLOFT) 50 mg tablet Take 1 tablet by mouth once daily. 2 - cholecalciferol, Vitamin D3, (VITAMIN D3) 1,250 mcg (50,000 unit) cap capsule Take 50,000 Units by mouth every Sunday. 2 - omeprazole (PRILOSEC) 20 mg capsule Take 1 capsule by mouth once daily. 0 - metFORMIN (GLUCOPHAGE) 500 mg tablet Take 1 tablet by mouth once daily. In addition to 250mg in the evening 2 - montelukast (SINGULAIR) 10 mg tablet Take 1 tablet by mouth once daily. 2 - Hydrochlorothiazide 12.5 mg capsule Take 1 capsule by mouth once daily. 90 capsule 1 - budesonide-formoterol (SYMBICORT) 160-4.5 mcg/actuation inhaler Inhale 2 Puffs as instructed twice daily. 6 Inhaler 1 - albuterol HFA (VENTOLIN HFA) 90 mcg/actuation inhaler Inhale 2 Puffs as instructed every 4 hours as needed (FOR COUGH OR WHEEZE). 3 Inhaler 1 - naproxen (NAPROSYN) 500 mg tablet Take 1 tablet by mouth twice daily as needed (pain/inflammation, take with food.). 180 tablet 3 - ketoconazole (NIZORAL) 2 % cream Apply 1 application to affected area twice daily. 60 g 1 - VITAMIN B COMPLEX (B COMPLEX 1 ORAL) Take 1 tablet by mouth once daily. - multivitamin tablet Take 1 tablet by mouth once daily. No current facility-administered medications for this visit. PHYSICAL EXAMINATION: There is swelling of the right lower extremity. The open wounds have largely closed though she has one area of skin opening over the lateral aspect of the right ankle. The left hand shows good range of motion of the left thumb. There is no significant instability at the base of the left thumb to valgus stress. RADIOGRAPHIC EXAMINATION: See note IMPRESSION: Right tibial plateau, open location right ankle, fracture left thumb proximal phalanx PLAN: She should continue with progression of weightbearing ambulation involving the right lower extremity. He may discontinue the splint to the left thumb. Return in 1 month for recheck with x-rays. Willam Graves MD Referring Provider: SELF [[id number]] Allergies As of Date: 05/03/2020 Noted Allergy Reaction ISONIAZID 07/11/2013 14 - Other: See Comments Comments: Chemically induced hepatitis. Patient was hospitalized. Date Reviewed: 05/03/2020 Reviewed by: Willam Graves - Fully Assessed Reason for Visit: Post Op [174] Primary Visit Diagnosis:Tibial plateau fracture, right, closed, with routine healing, subsequent encounter [S82.141D] Other Visit Diagnoses:Dislocation of right ankle joint, subsequent encounter [S93.04XD] Gamekeeper's thumb of left hand, subsequent encounter [S53.32XD] Order(s):XR KNEE LIMITED 2V AP/LAT RT [[id number]] Order #: [id number] XR ANKLE 2V AP/LAT RT [[id number]] Order #: [id number] XR HAND 2V AP/LAT LT [[id number]] Order #: [id number] Prescriptions as of 05/03/2020 Sig: POLYETHYLENE GLYCOL 3350 17 G* Take 17 g by mouth once daily. METFORMIN 500 MG TABLET Take 250 mg by mouth daily wi* FLUTICASONE PROPIONATE 50 MCG* Use 1 [place] [facility] in each nostril o* LOSARTAN 25 MG TABLET Take 25 mg by mouth once aditi* COENZYME Q10 10 MG CAPSULE Take 10 mg by mouth once aditi* SERTRALINE 50 MG TABLET Take 1 tablet by mouth once d* CHOLECALCIFEROL (VITAMIN D3) * Take 50,000 Units by mouth ev* OMEPRAZOLE 20 MG CAPSULE,CRISTIANA* Take 1 capsule by mouth once * METFORMIN 500 MG TABLET Take 1 tablet by mouth once d* MONTELUKAST 10 MG TABLET Take 1 tablet by mouth once d* HYDROCHLOROTHIAZIDE 12.5 MG C* Take 1 capsule by mouth once * BUDESONIDE-FORMOTEROL HFA 160* Inhale 2 Puffs as instructed * ALBUTEROL SULFATE HFA 90 MCG/* Inhale 2 Puffs as instructed * NAPROXEN 500 MG TABLET Take 1 tablet by mouth twice * KETOCONAZOLE 2 % TOPICAL CREAM Apply 1 application to affect* B COMPLEX 1 ORAL Take 1 tablet by mouth once d* MULTIVITAMIN TABLET Take 1 tablet by mouth once d* Problem List As Of Date 05/03/2020 Noted Resolved Positive PPD [R76.11] 07/31/2013 Urge incontinence [N39.41] 07/31/2013 HTN (hypertension) [I10] 07/31/2013 Asthma [J45.909] 07/31/2013 Backache, unspecified [M54.9] 01/02/2014 Other chronic pain [G89.29] 01/02/2014 Morbid obesity due to excess calories (HCC) [E6*03/31/2015 GERD (gastroesophageal reflux disease) [K21.9] 03/31/2015 OAB (overactive bladder) [N32.81] 03/31/2015 Primary osteoarthritis of right knee [M17.11] 11/30/2015 Chronic pain of right knee [M25.561, G89.29] 11/30/2015 Colonic polyp [K63.5] 05/26/2016 Open right ankle fracture [S82.891B] 02/18/2020 02/24/2020 Elevated LFTs [R79.89] 02/19/2020 02/24/2020 Liver laceration, grade I [S36.114A] 02/19/2020 Closed fracture of multiple ribs of left side [*02/19/2020 Closed fracture of body of sternum [S22.22XA] 02/19/2020 Closed fracture of right tibial plateau [S82.14*02/19/2020 02/24/2020 Elevated lipase [R74.8] 02/19/2020 02/24/2020 Effusion of right knee [M25.461] 02/19/2020 Obesity, Class III, BMI >= 40 [E66.01] 02/20/2020 Hypokalemia [E87.6] 02/20/2020 02/24/2020 Acute urinary retention [R33.8] 02/20/2020 02/24/2020 Nicotine use disorder, F17.2 [F17.200] 02/21/2020 Disposition: Return in about 1 month (around 05/31/2020). Follow-up and Disposition History Recorded Encounter Status:Closed by WILLAM GRAVES MD on 05/03/20 [facility] PROGRESSon 05-03-2020 PROGRESS HNO ID: [id number] Author: Willam Graves Service: ? Author Type: Physician Type: Progress Notes Filed: 05/03/2020 11:46 AM Note Text: 05/03/2020 RE: Daphney Benson DATE OF : 1960 Vitals: Resp 14 Ht 5' 3 (1.60m) Wt 237 lb (107.5kg) BMI 41.99 kg/(m2). FOLLOW UP VISIT: Fracture right tibial plateau, dislocation right ankle, fracture proximal phalanx left thumb HPI: She has been able to resume some ambulation involving the right lower extremity. She continues to have some discomfort in the lateral aspect of the right ankle. Not having significant knee pain. She is also not having significant discomfort in her left hand. 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 MRSA. hospitalized for abdominal abscesses - PAST SURGICAL HISTORY OF c/s - TOTAL ABDOM HYSTERECTOMY 2003 abnormal bleeding Social History Tobacco Use - Smoking status: Current Every Day Smoker Packs/day: 1.00 Years: 40.00 Pack years: 40.00 Last attempt to quit: 06/16/2010 Years since quittin.8 - Smokeless tobacco: Never Used Substance Use Topics - Alcohol use: Yes Comment: rare - Drug use: No ALLERGIES Allergen Reactions - Isoniazid Other: See Comments Chemically induced hepatitis. Patient was hospitalized. Current Medications: Current Outpatient Medications Medication Sig Dispense Refill - polyethylene glycol 3350 (MIRALAX) 17 gram/dose powder Take 17 g by mouth once daily. - metFORMIN (GLUCOPHAGE) 500 mg tablet Take 250 mg by mouth daily with dinner. In addition to 500mg in the morning - fluticasone (FLONASE) 50 mcg/actuation nasal spray Use 1 [place] in each nostril once daily. - losartan (COZAAR) 25 mg tablet Take 25 mg by mouth once daily. - ubidecarenone Q-10 (COENZYME Q-10) 10 mg cap Take 10 mg by mouth once daily. - sertraline (ZOLOFT) 50 mg tablet Take 1 tablet by mouth once daily. 2 - cholecalciferol, Vitamin D3, (VITAMIN D3) 1,250 mcg (50,000 unit) cap capsule Take 50,000 Units by mouth every Sunday. 2 - omeprazole (PRILOSEC) 20 mg capsule Take 1 capsule by mouth once daily. 0 - metFORMIN (GLUCOPHAGE) 500 mg tablet Take 1 tablet by mouth once daily. In addition to 250mg in the evening 2 - montelukast (SINGULAIR) 10 mg tablet Take 1 tablet by mouth once daily. 2 - Hydrochlorothiazide 12.5 mg capsule Take 1 capsule by mouth once daily. 90 capsule 1 - budesonide-formoterol (SYMBICORT) 160-4.5 mcg/actuation inhaler Inhale 2 Puffs as instructed twice daily. 6 Inhaler 1 - albuterol HFA (VENTOLIN HFA) 90 mcg/actuation inhaler Inhale 2 Puffs as instructed every 4 hours as needed (FOR COUGH OR WHEEZE). 3 Inhaler 1 - naproxen (NAPROSYN) 500 mg tablet Take 1 tablet by mouth twice daily as needed (pain/inflammation, take with food.). 180 tablet 3 - ketoconazole (NIZORAL) 2 % cream Apply 1 application to affected area twice daily. 60 g 1 - VITAMIN B COMPLEX (B COMPLEX 1 ORAL) Take 1 tablet by mouth once daily. - multivitamin tablet Take 1 tablet by mouth once daily. No current facility-administered medications for this visit. PHYSICAL EXAMINATION: There is swelling of the right lower extremity. The open wounds have largely closed though she has one area of skin opening over the lateral aspect of the right ankle. The left hand shows good range of motion of the left thumb. There is no significant instability at the base of the left thumb to valgus stress. RADIOGRAPHIC EXAMINATION: See note IMPRESSION: Right tibial plateau, open location right ankle, fracture left thumb proximal phalanx PLAN: She should continue with progression of weightbearing ambulation involving the right lower extremity. He may discontinue the splint to the left thumb. Return in 1 month for recheck with x-rays. Willam Graves MD [facility] CNOVon 04-05-2020 CNOV Office Visit (AGPOB1 ) DAPHNEY BENSON ([id number]) 1960 F Date Time Provider Department 04/05/20 11:15 AM WILLAM GRAVES AGPOB1 During your visit today, we recorded the following information about you: Respiration Weight Height 16/minute 112.5 kg 1.6 m Willam Graves MD 04/05/2020 11:20 AM Signed 04/05/2020 RE: Daphney Benson DATE OF : 1960 Vitals: Resp 16 Ht 5' 3 (1.60m) Wt 248 lb (112.5kg) BMI 43.94 kg/(m2). FOLLOW UP VISIT: Right tibial plateau fracture, dislocation right ankle, fracture proximal phalanx left thumb HPI: She is having less discomfort in her lower extremity as well as her left thumb. Is been immobilized. She has been nonweightbearing on the right lower extremity. Has been using a thumb spica splint on the left thumb. 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 MRSA. hospitalized for abdominal abscesses - PAST SURGICAL HISTORY OF c/s - TOTAL ABDOM HYSTERECTOMY 2004 abnormal bleeding Social History Tobacco Use - Smoking status: Current Every Day Smoker Packs/day: 1.00 Years: 40.00 Pack years: 40.00 Last attempt to quit: 06/16/2010 Years since quittin.8 - Smokeless tobacco: Never Used Substance Use Topics - Alcohol use: Yes Comment: rare - Drug use: No ALLERGIES Allergen Reactions - Isoniazid Other: See Comments Chemically induced hepatitis. Patient was hospitalized. Current Medications: Current Outpatient Medications Medication Sig Dispense Refill - polyethylene glycol 3350 (MIRALAX) 17 gram/dose powder Take 17 g by mouth once daily. - metFORMIN (GLUCOPHAGE) 500 mg tablet Take 250 mg by mouth daily with dinner. In addition to 500mg in the morning - fluticasone (FLONASE) 50 mcg/actuation nasal spray Use 1 [place] in each nostril once daily. - losartan (COZAAR) 25 mg tablet Take 25 mg by mouth once daily. - ubidecarenone Q-10 (COENZYME Q-10) 10 mg cap Take 10 mg by mouth once daily. - sertraline (ZOLOFT) 50 mg tablet Take 1 tablet by mouth once daily. 2 - cholecalciferol, Vitamin D3, (VITAMIN D3) 1,250 mcg (50,000 unit) cap capsule Take 50,000 Units by mouth every Sunday. 2 - omeprazole (PRILOSEC) 20 mg capsule Take 1 capsule by mouth once daily. 0 - metFORMIN (GLUCOPHAGE) 500 mg tablet Take 1 tablet by mouth once daily. In addition to 250mg in the evening 2 - montelukast (SINGULAIR) 10 mg tablet Take 1 tablet by mouth once daily. 2 - Hydrochlorothiazide 12.5 mg capsule Take 1 capsule by mouth once daily. 90 capsule 1 - budesonide-formoterol (SYMBICORT) 160-4.5 mcg/actuation inhaler Inhale 2 Puffs as instructed twice daily. 6 Inhaler 1 - albuterol HFA (VENTOLIN HFA) 90 mcg/actuation inhaler Inhale 2 Puffs as instructed every 4 hours as needed (FOR COUGH OR WHEEZE). 3 Inhaler 1 - naproxen (NAPROSYN) 500 mg tablet Take 1 tablet by mouth twice daily as needed (pain/inflammation, take with food.). 180 tablet 3 - ketoconazole (NIZORAL) 2 % cream Apply 1 application to affected area twice daily. 60 g 1 - VITAMIN B COMPLEX (B COMPLEX 1 ORAL) Take 1 tablet by mouth once daily. - multivitamin tablet Take 1 tablet by mouth once daily. No current facility-administered medications for this visit. PHYSICAL EXAMINATION: The incision of the right knee is healing nicely. There is 1 small eschar noted however no drainage is noted. The right ankle is healing nicely. There is still a small amount of sanguinous drainage from the open wound. The left thumb shows good stability. There is no tenderness over the ulnar aspect of the base of the proximal phalanx. RADIOGRAPHIC EXAMINATION: See note IMPRESSION: Fracture proximal phalanx left thumb, right tibial plateau fracture, right ankle dislocation PLAN: She may progress now with weightbearing ambulation on the right lower extremity. I have given her a prescription for physical therapy for this. She should continue wearing the thumb spica splint on the left thumb. Return in 1 month for recheck with x-ray all locations. Willam Graves MD Referring Provider: EMERGENCY STAFF [facility] [[id number]] Allergies As of Date: 04/05/2020 Noted Allergy Reaction ISONIAZID 07/11/2013 14 - Other: See Comments Comments: Chemically induced hepatitis. Patient was hospitalized. Date Reviewed: 04/05/2020 Reviewed by: Willam Graves - Fully Assessed Reason for Visit: Post Op [174] Primary Visit Diagnosis:Tibial plateau fracture, right, closed, with routine healing, subsequent encounter [S82.141D] Other Visit Diagnoses:Dislocation of right ankle joint, subsequent encounter [S93.04XD] Gamekeeper's thumb of left hand, subsequent encounter [S53.32XD] Order(s):XR KNEE LIMITED 2V AP/LAT RT [[id number]] Order #: [id number] XR ANKLE 2V AP/LAT LT [[id number]] Order #: [id number] XR HAND 2V AP/LAT LT [[id number]] Order #: [id number] CONSULT TO PHYSICAL THERAPY (AG) [[id number]] Order #: [id number]: 1 Prescriptions as of 04/05/2020 Sig: POLYETHYLENE GLYCOL 3350 17 G* Take 17 g by mouth once daily. METFORMIN 500 MG TABLET Take 250 mg by mouth daily wi* FLUTICASONE PROPIONATE 50 MCG* Use 1 [place] in each nostril o* LOSARTAN 25 MG TABLET Take 25 mg by mouth once aditi* COENZYME Q10 10 MG CAPSULE Take 10 mg by mouth once aditi* SERTRALINE 50 MG TABLET Take 1 tablet by mouth once d* CHOLECALCIFEROL (VITAMIN D3) * Take 50,000 Units by mouth ev* OMEPRAZOLE 20 MG CAPSULE,CRISTIANA* Take 1 capsule by mouth once * METFORMIN 500 MG TABLET Take 1 tablet by mouth once d* MONTELUKAST 10 MG TABLET Take 1 tablet by mouth once d* HYDROCHLOROTHIAZIDE 12.5 MG C* Take 1 capsule by mouth once * BUDESONIDE-FORMOTEROL HFA 160* Inhale 2 Puffs as instructed * ALBUTEROL SULFATE HFA 90 MCG/* Inhale 2 Puffs as instructed * NAPROXEN 500 MG TABLET Take 1 tablet by mouth twice * KETOCONAZOLE 2 % TOPICAL CREAM Apply 1 application to affect* B COMPLEX 1 ORAL Take 1 tablet by mouth once d* MULTIVITAMIN TABLET Take 1 tablet by mouth once d* Problem List As Of Date 04/05/2020 Noted Resolved Positive PPD [R76.11] 07/31/2013 Urge incontinence [N39.41] 07/31/2013 HTN (hypertension) [I10] 07/31/2013 Asthma [J45.909] 07/31/2013 Backache, unspecified [M54.9] 01/02/2014 Other chronic pain [G89.29] 01/02/2014 Morbid obesity due to excess calories (HCC) [E6*03/31/2015 GERD (gastroesophageal reflux disease) [K21.9] 03/31/2015 OAB (overactive bladder) [N32.81] 03/31/2015 Primary osteoarthritis of right knee [M17.11] 11/30/2015 Chronic pain of right knee [M25.561, G89.29] 11/30/2015 Colonic polyp [K63.5] 05/26/2016 Open right ankle fracture [S82.891B] 02/18/2020 02/24/2020 Elevated LFTs [R79.89] 02/19/2020 02/24/2020 Liver laceration, grade I [S36.114A] 02/19/2020 Closed fracture of multiple ribs of left side [*02/19/2020 Closed fracture of body of sternum [S22.22XA] 02/19/2020 Closed fracture of right tibial plateau [S82.14*02/19/2020 02/24/2020 Elevated lipase [R74.8] 02/19/2020 02/24/2020 Effusion of right knee [M25.461] 02/19/2020 Obesity, Class III, BMI >= 40 [E66.01] 02/20/2020 Hypokalemia [E87.6] 02/20/2020 02/24/2020 Acute urinary retention [R33.8] 02/20/2020 02/24/2020 Nicotine use disorder, F17.2 [F17.200] 02/21/2020 Disposition: Return in about 1 month (around 05/06/2020). Follow-up and Disposition History Recorded Encounter Status:Closed by WILLAM GRAVES MD on 04/05/20 [facility] PROGRESSon 04-05-2020 PROGRESS HNO ID: [id number] Author: Willam Graves Service: ? Author Type: Physician Type: Progress Notes Filed: 04/05/2020 11:20 AM Note Text: 04/05/2020 RE: Daphney Benson DATE OF : 1960 Vitals: Resp 16 Ht 5' 3 (1.60m) Wt 248 lb (112.5kg) BMI 43.94 kg/(m2). FOLLOW UP VISIT: Right tibial plateau fracture, dislocation right ankle, fracture proximal phalanx left thumb HPI: She is having less discomfort in her lower extremity as well as her left thumb. Is been immobilized. She has been nonweightbearing on the right lower extremity. Has been using a thumb spica splint on the left thumb. 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 MRSA. hospitalized for abdominal abscesses - PAST SURGICAL HISTORY OF c/s - TOTAL ABDOM HYSTERECTOMY 2003 abnormal bleeding Social History Tobacco Use - Smoking status: Current Every Day Smoker Packs/day: 1.00 Years: 40.00 Pack years: 40.00 Last attempt to quit: 06/16/2010 Years since quittin.8 - Smokeless tobacco: Never Used Substance Use Topics - Alcohol use: Yes Comment: rare - Drug use: No ALLERGIES Allergen Reactions - Isoniazid Other: See Comments Chemically induced hepatitis. Patient was hospitalized. Current Medications: Current Outpatient Medications Medication Sig Dispense Refill - polyethylene glycol 3350 (MIRALAX) 17 gram/dose powder Take 17 g by mouth once daily. - metFORMIN (GLUCOPHAGE) 500 mg tablet Take 250 mg by mouth daily with dinner. In addition to 500mg in the morning - fluticasone (FLONASE) 50 mcg/actuation nasal spray Use 1 [place] in each nostril once daily. - losartan (COZAAR) 25 mg tablet Take 25 mg by mouth once daily. - ubidecarenone Q-10 (COENZYME Q-10) 10 mg cap Take 10 mg by mouth once daily. - sertraline (ZOLOFT) 50 mg tablet Take 1 tablet by mouth once daily. 2 - cholecalciferol, Vitamin D3, (VITAMIN D3) 1,250 mcg (50,000 unit) cap capsule Take 50,000 Units by mouth every Sunday. 2 - omeprazole (PRILOSEC) 20 mg capsule Take 1 capsule by mouth once daily. 0 - metFORMIN (GLUCOPHAGE) 500 mg tablet Take 1 tablet by mouth once daily. In addition to 250mg in the evening 2 - montelukast (SINGULAIR) 10 mg tablet Take 1 tablet by mouth once daily. 2 - Hydrochlorothiazide 12.5 mg capsule Take 1 capsule by mouth once daily. 90 capsule 1 - budesonide-formoterol (SYMBICORT) 160-4.5 mcg/actuation inhaler Inhale 2 Puffs as instructed twice daily. 6 Inhaler 1 - albuterol HFA (VENTOLIN HFA) 90 mcg/actuation inhaler Inhale 2 Puffs as instructed every 4 hours as needed (FOR COUGH OR WHEEZE). 3 Inhaler 1 - naproxen (NAPROSYN) 500 mg tablet Take 1 tablet by mouth twice daily as needed (pain/inflammation, take with food.). 180 tablet 3 - ketoconazole (NIZORAL) 2 % cream Apply 1 application to affected area twice daily. 60 g 1 - VITAMIN B COMPLEX (B COMPLEX 1 ORAL) Take 1 tablet by mouth once daily. - multivitamin tablet Take 1 tablet by mouth once daily. No current facility-administered medications for this visit. PHYSICAL EXAMINATION: The incision of the right knee is healing nicely. There is 1 small eschar noted however no drainage is noted. The right ankle is healing nicely. There is still a small amount of sanguinous drainage from the open wound. The left thumb shows good stability. There is no tenderness over the ulnar aspect of the base of the proximal phalanx. RADIOGRAPHIC EXAMINATION: See note IMPRESSION: Fracture proximal phalanx left thumb, right tibial plateau fracture, right ankle dislocation PLAN: She may progress now with weightbearing ambulation on the right lower extremity. I have given her a prescription for physical therapy for this. She should continue wearing the thumb spica splint on the left thumb. Return in 1 month for recheck with x-ray all locations. Willam Graves MD [facility] 03-22-2020 [facility] Office Visit (AGPOB1 ) DAPHNEY BENSON ([id number]) 1960 F Date Time Provider Department 03/22/20 11:00 AM WILLAM GRAVES AGPOB1 During your visit today, we recorded the following information about you: Respiration Weight Height 18/minute 112.5 kg 1.6 m Willam Graves MD 03/22/2020 11:05 AM Signed 03/22/2020 RE: Daphney Benson DATE OF : 1960 Vitals: Resp 18 Ht 5' 3 (1.60m) Wt 248 lb (112.5kg) BMI 43.94 kg/(m2). FOLLOW UP VISIT: Right tibial plateau fracture, dislocation right ankle, fracture proximal phalanx left thumb HPI: She has been nonweightbearing on the right lower extremity as well as her left upper extremity. Not having any significant discomfort. She still is noting a small amount of drainage from the right ankle. 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 lateral knee, AP and lateral lower leg, AP, lateral and oblique ankle, AP, lateral and oblique foot. COMPARISON: None available. RESULT: Comminuted fracture of the lateral tibial plateau with inferior depression of fragments. A sagittally oriented fracture line extends into the proximal tibial metaphysis. Medial compartment shows degenerative narrowing. Small joint effusion noted in the lateral projection. Included distal femur negative for fracture. Right lower leg: Remainder of the tibia as well as the fibula are intact. Dislocation at the tibiotalar joint. The talus is dislocated laterally relative to the distal tibia. Small fracture fragment projecting over the medial aspect of the medial malleolus may represent a fragment arising from the dislocated talus but this is uncertain. Calcaneus is also from the talus. No calcaneal fracture detected. Remainder of the bones of the foot are intact. COMBINED IMPRESSION: Pelvis and right hip: Negative. Lateral tibial plateau comminuted fracture with inferior depression of fragments. Knee joint effusion. Complex dislocation of the talus and calcaneus. The talus is dislocated laterally relative to the distal tibia and the dome of the calcaneus. Small fracture fragment projecting over the medial malleolus may have arisen from the talus. Recommend CT for closer evaluation of the ankle fracture/dislocation. Motorcycle Assembler: PSCB Transcribe Date/Time: Feb 18 2020 7:51P Dictated by : NHAN LEIJA MD This examination was interpreted and the report reviewed and electronically signed by: NHAN LEIJA MD on Feb 18 2020 8:01PM EST Normal [facility] XR TIBIA FIBULA 2V AP/LAT RT on 02-18-2020 XR TIBIA FIBULA 2V AP/LAT RT Final Report DATE OF EXAM: Feb 18 2020 7:26PM [id number] - XR TIBIA FIBULA 2V AP/LAT RT / PROCEDURE REASON: Ankle trauma, syndesmotic injury suspected Physician Interpretation EXAM 1:RIGHT HIP X-RAY SERIES HISTORY: Polytrauma, critical, lower ext injury suspected TECHNIQUE: Portable AP pelvis, right hip true AP and crosstable lateral views COMPARISON: None available. RESULT: Hip joint spaces are preserved and symmetric. No fracture or dislocation. Included right proximal femur intact. EXAM 2/07/05: RIGHT KNEE, lower leg, ankle and foot X-RAY SERIES HISTORY: Polytrauma, critical, lower ext injury suspected TECHNIQUE: AP and crosstable lateral knee, AP and lateral lower leg, AP, lateral and oblique ankle, AP, lateral and oblique foot. COMPARISON: None available. RESULT: Comminuted fracture of the lateral tibial plateau with inferior depression of fragments. A sagittally oriented fracture line extends into the proximal tibial metaphysis. Medial compartment shows degenerative narrowing. Small joint effusion noted in the lateral projection. Included distal femur negative for fracture. Right lower leg: Remainder of the tibia as well as the fibula are intact. Dislocation at the tibiotalar joint. The talus is dislocated laterally relative to the distal tibia. Small fracture fragment projecting over the medial aspect of the medial malleolus may represent a fragment arising from the dislocated talus but this is uncertain. Calcaneus is also from the talus. No calcaneal fracture detected. Remainder of the bones of the foot are intact. COMBINED IMPRESSION: Pelvis and right hip: Negative. Lateral tibial plateau comminuted fracture with inferior depression of fragments. Knee joint effusion. Complex dislocation of the talus and calcaneus. The talus is dislocated laterally relative to the distal tibia and the dome of the calcaneus. Small fracture fragment projecting over the medial malleolus may have arisen from the talus. Recommend CT for closer evaluation of the ankle fracture/dislocation. Motorcycle Assembler: PSCB Transcribe Date/Time: Feb 18 2020 7:51P Dictated by : NHAN LEIJA MD This examination was interpreted and the report reviewed and electronically signed by: NHAN LEIJA MD on Feb 18 2020 8:01PM EST Normal [facility] aPTT PPPon 02-18-2020 aPTT Coag (PPP) [Time] 21.9 s Low 23.0-32.4 [facility] Comment on above: Order Comment: Speci men Type: BLOOD SPECIMEN Performed By: #### 3 4528-0, 37563-5 #### [facility] CLIA [id number] [address] [place] [address] EMERGENCY REPORTon 9 EMERGENCY REPORT [facility] EMERGENCY ROOM REPORT NAME ACCOUNT SEX AGE ADMIT DISCHARGE PT MED. RECORD# NUMBER DATE DATE WILMAN BENSON [id number] F 58 12/22/18 12/22/18 3 DAPHNEY Mcintosh [id number] ROOM: ER DATE OF : 1960 DICTATING PHYSICIAN: Ana Logan ADDENDUM: DIAGNOSTIC DATA: Her sugar came back at 287. Her electrolytes look good. Her kidney function is normal. Her urine is clean. She was dumping glucose at 1000 mg/dL. EMERGENCY DEPARTMENT COURSE AND TREATMENT: She received 1 liter of fluid. She received IV insulin and now her sugar is down to 151, fingerstick at the bedside. She is feeling better. DIAGNOSIS: Hyperglycemia in type 2 diabetic, secondary to steroids. PLAN/DISPOSITION: I explained to her that she could have other spikes in her sugars while she is on the steroids and she is finishing those up. Dictated By: Ana Logan MD 12/22/18 18:33 JOB #: [id number] Transcribed By: vaishali 12/23/18 11:42 Electronically signed by: E-Sign: Ana Logan MD 01/17/19 12:14 Page 1 of 1 DAPHNEY BENSON Emergency Room Report Normal [facility] EMERGENCY REPORT [facility] EMERGENCY ROOM REPORT NAME ACCOUNT SEX AGE ADMIT DISCHARGE PT MED. RECORD# NUMBER DATE DATE WILMAN BENSON [id number] F 58 12/22/18 12/22/18 3 DAPHNEY Mcintosh [id number] ROOM: ER DATE OF : 1960 DICTATING PHYSICIAN: Ana Logan CHIEF COMPLAINT: Elevated blood glucose at 461. HISTORY OF PRESENT ILLNESS: The patient is a type 2 diabetic on Metformin. Has been on steroids for asthmatic exacerbation. She states that her sugars at home were 340. She has been very lightheaded, thirsty and having polyuria. No fever, chills, signs of infection. She thinks it is all steroid driven. She does not have any insulin at home. We will check her and see where she is at here. We will give fluids and insulin. Her finger stick here is 340. No other associated signs or symptoms. Nothing made it better. It appears that the steroids were making it worse. Having a recent asthma exacerbation with viral bronchitis. PAST MEDICAL HISTORY: COPD, asthma, NIDDM, hypertension, bouts of hyperglycemia. PAST SURGICAL HISTORY: Cholecystectomy, . SOCIAL HISTORY: Smokes a pack per day. Here with significant others. Drinks occasionally. PHYSICAL EXAMINATION: Well-developed obese female. Blood pressure 192/95, pulse 104, respiratory rate 17, temperature 98.7, pulse oximetry 93% on room air. Skin is warm and dry. No rash, petechiae or bruises. HEENT: Normocephalic and atraumatic. Sclerae anicteric. Pupils are reactive to light. Oropharynx is clear. Neck is supple. Trachea is midline. No stridor. No JVD. Lungs: Clear. Cardiac: Regular rate and rhythm. No clicks, gallops, rubs or murmurs. Abdomen: Benign, nontender. Bowel sounds present. Extremities: No cyanosis or edema. No signs of cellulitis. Neurologic: Cranial nerves II-XII are intact. Psychiatric: Alert and oriented x4, nonfocal. EMERGENCY DEPARTMENT COURSE AND TREATMENT: The patient will be hydrated here and given insulin to bring her sugar down to a reasonable level. Check her electrolytes with a BMP. DIAGNOSES: 1. Hyperglycemia secondary to steroid treatment. 2. Tobaccoism. 3. History of asthma exacerbation and chronic obstructive pulmonary disease. Page 1 of 2 DAPHNEY BENSON Emergency Room Report PLAN/DISPOSITION: We will have her follow up with her primary physician. We encouraged her to stop smoking. Dictated By: Ana Logan MD 12/22/18 16:37 JOB #: [id number] Transcribed By: vaishali 12/23/18 11:13 Electronically signed by: E-Sign: Ana Logan MD 01/17/19 12:11 Page 2 of 2 DAPHNEY BENSON Emergency Room Report Normal [facility] EMERGENCY REPORTon 9 EMERGENCY REPORT [facility] EMERGENCY ROOM REPORT NAME ACCOUNT SEX AGE ADMIT DISCHARGE PT MED. RECORD# NUMBER DATE DATE TYPE MARCELINO [id number] F 58 12/19/18 12/19/18 3 DAPHNEY Mcintosh [id number] ROOM: ER DATE OF : 1960 DICTATING PHYSICIAN: Edmundo Wall CHIEF COMPLAINT: Cough, congestion and shortness of breath. HISTORY OF PRESENT ILLNESS: The patient does have a history of asthma and states that for the past 2-3 days she has been having increasing cough, congestion and shortness of breath. She as seen in [facility] yesterday where she had chest x-ray and labs. She states that she was told that the x-ray looked okay. She was given several aerosols and discharged with prednisone and an inhaler which she has been using. She states that she continues to feel short of breath. She has had some low- grade fever. Cough is mostly nonproductive. No vomiting. PAST MEDICAL HISTORY: Hypertension, asthma, history of diabetes. PAST SURGICAL HISTORY: Appendectomy, cholecystectomy, hysterectomy. MEDICATIONS: Per medication reconciliation list. ALLERGIES: Per allergy list. SOCIAL HISTORY: The patient lives at home. She does smoke. She drinks alcohol occasional. She does not use other drugs. PHYSICAL EXAMINATION: This is a 58-year-old, female who is alert and appropriate. She is mildly obese. She has occasional dry cough, but no significant respiratory distress. Skin is pink, warm and dry. HEENT: Eyes, ears, nose, mouth and throat have no acute abnormalities. Neck is supple. No adenopathy. She has some mildly diminished breath sounds with some fine expiratory wheezes bilaterally. No tachypnea. Cardiac exam has regular slightly tachy rate without ectopy or murmur. Abdomen is soft and nontender. Moves all extremities appropriately. No focal weakness. Good peripheral pulses and capillary refill. VITAL SIGNS: Temperature 99.3, pulse 105, respirations 18, blood pressure 185/90. DIAGNOSTIC DATA: CBC was basically normal. White count was 10,300, 75% neutrophils. H&H 13.2 and 37.9. Chemistries: Glucose 296. EMERGENCY DEPARTMENT COURSE AND TREATMENT: O2 saturation is 95%. I elected to not get a chest x-ray since she had this yesterday at [facility] per her report . Page 1 of 2 [facility] Emergency Room Report An IV of saline was given. She was given 1 liter IV fluids, Solu-Medrol IV, DuoNeb aerosol. A number of lab studies were obtained. DIAGNOSIS: Bronchitis with reactive airway disease. PLAN/DISPOSITION: She is on steroids. I gave her a gram of Rocephin IV. We will discharge her on Zithromax to take with her present meds. She is to follow up with her family doctor in 1-2 days if no better and return if symptoms worsen. Dictated By: Edmundo Wall MD 12/19/18 19:15 JOB #: [id number] Transcribed By: vaishali 12/20/18 06:57 Electronically signed by: FORD Wall M.D. 12/23/18 07:19 Page 2 of 2 [facility]APH[facility] BENSON Emergency Room Report Normal [facility] BMP with eGFRon 12-22-2018 Age - Reported 58 years Normal [facility] Comment on above: Performed By: #### 2 14795 #### [facility],[address] [place] [address] 52375 Anion gap [Moles/Vol] 13 mmol/L Normal 10 - 20 [facility] Comment on above: Performed By: #### 2 75701 #### [facility],[address] [place] [address] 59846 Calcium [Mass/Vol] 9.8 mg/dL Normal 8.6 - 10.2 [facility] Comment on above: Performed By: #### 2 42778 #### [facility],[address] [place] [address] 31534 Chloride [Moles/Vol] 99 mmol/L Normal 98 - 107 [facility] Comment on above: Performed By: #### 2 77027 #### [facility],[address] [place] [address] 20261 CO2 [Moles/Vol] 26.7 mmol/L Normal 21.0 - 31.0 [facility] Comment on above: Performed By: #### 2 18999 #### [facility],[address] [place] [address] 85246 Creatinine [Mass/Vol] 0.8 mg/dL Normal 0.6 - 1.2 [facility] Comment on above: Performed By: #### 2 78011 #### [facility],[address] [place] [address] 15626 GFR/1.73 sq M predicted among non-blacks MDRD (S/P/Bld) [Vol rate/Area] Normal [facility] Comment on above: Result Comment: BASI C METABOLIC PANEL Performed By: #### 2 26283 #### [facility],[address] [place] [address] 75064 GFR/1.73 sq M predicted among non-blacks MDRD (S/P/Bld) [Vol rate/Area] mL/min/{1.73_m2} Normal 60 - 999 [facility] Comment on above: Performed By: #### 2 03729 #### [facility],[address] [place], [place] [id number] Result Comment: ACCO RDING TO THE NATIONAL KIDNEY DISEASE EDUCATION PROGRAM(NKDE), A NORMAL eGFR IS A VALUE GREATER THAN OR EQUAL TO 60 ML/MIN/1.73 SQ METERS. CHRONIC KIDNEY DISEASE: <60mL/MIN/1.73 SQ METERS KIDNEY FAILURE: <15mL/MIN/1.73 SQ METERS THIS TEST SHOULD ONLY BE USED FOR PATIENTS 18 YEARS OF AGE AND OLDER. Glucose [Mass/Vol] 287 mg/dL High 74 - 106 [facility] Comment on above: Performed By: #### 2 69028 #### [facility],[address] [place] [address] 67629 Potassium [Moles/Vol] 3.9 mmol/L Normal 3.5 - 5.1 [facility] Comment on above: Performed By: #### 2 67668 #### [facility],[address] [place] [address] 11854 Sodium [Moles/Vol] 135 mmol/L Low 136 - 145 [facility] Comment on above: Performed By: #### 2 09335 #### [address] [address] Urea nitrogen [Mass/Vol] 21 mg/dL High 6 - 20 [facility] Comment on above: Performed By: #### 2 54486 #### [facility],[address] [place] [address] 95413 GLUCOSE BEDSIDEon 09-22-2019 GLU BEDSIDE 340 mg/dl High 60 - 100 [facility] Comment on above: Performed By: #### 2 42914 #### [facility],[address] [place] [address] 62232 Glucose [Mass/Vol] Normal [facility] Comment on above: Result Comment: POIN T OF CARE GLUCOSE TEST Performed By: #### 2 25552 #### [facility],[address] [place], [place] [id number] URINALYSISon 12-22-2018 Bilirubin [Mass/Vol] Negative Normal NORMAL: NEGATIVE [facility] Comment on above: Performed By: #### 2 13954 #### [facility],[address] [place], [place] [id number] Blood Negative Normal NORMAL: NEGATIVE [facility] Comment on above: Performed By: #### 2 52041 #### [facility],[address] [place] [address] Clarity (U) clear Normal NORMAL: CLEAR [facility] Comment on above: Performed By: #### 2 08060 #### [facility],[address] [place], [place] [id number] Color (U) p.yel Normal NORMAL: YELLOW [facility] Comment on above: Performed By: #### 2 54284 #### [facility],[address] [place] [address] 37929 Glucose [Mass/Vol] 1000 Abnormal NORMAL: NORMAL [facility] Comment on above: Performed By: #### 2 77758 #### [facility],[address] [place] [address] 01434 Ketone Negative Normal NORMAL: NEGATIVE [facility] Comment on above: Performed By: #### 2 25945 #### [facility],[address] [place], [place] [phone] Microscopic NOT Normal [facility] Comment on above: Performed By: #### 2 38633 #### [facility],[address] [place] [address] Nitrite Ql (U) Negative Normal NORMAL: NEGATIVE [facility] Comment on above: Performed By: #### 2 62105 #### [facility],[address] [place] [address] pH (Bld) 5 Normal NORMAL: 5.0-8.0 [facility] Comment on above: Performed By: #### 2 36130 #### [facility],[address] [place] [address] Protein (U) [Mass/Vol] Negative Normal SACHI L: NEGATIVE [facility] Comment on above: Performed By: #### 2 89387 #### [facility],[address] [place] [address] Sp [place] 1.010 Normal NORMAL: 1.010-1.03 0 [facility] Comment on above: Performed By: #### 2 11493 #### [facility],[address] [place] [address] Specimen type Nom (Spec) UNSPECIFIED Normal [facility] Comment on above: Performed By: #### 2 93966 #### [facility],[address] [place] [address] Urobilinog NORM Normal NORMAL: NORMAL [facility] Comment on above: Performed By: #### 2 88555 #### [facility],[address] [place] [address] WBC (Bld) [#/Vol] Negative Normal NORMAL: NEGATIVE [facility] Comment on above: Performed By: #### 2 18556 #### [facility],[address] [place] [address] BNP (B-TYPE NATRIURETIC PEPT EMILIANO)on 12-19-2018 Natriuretic peptide B (Bld) [Mass/Vol] 5 pg/mL Normal 1 - 100 [facility] Comment on above: Performed By: #### 2 25670 #### [facility],[address] [place] [address] 01892 CBC + DIFFon 12-19-2018 Basophils (Bld) [#/Vol] 0.10 x10EE3/UL Normal 0.00 - 0.10 [facility] Comment on above: Performed By: #### 2 25518 #### [facility],[address] [place] [address] 67030 Basophils/100 WBC (Bld) 1.0 % Normal 0.0 - 2.0 [facility] Comment on above: Performed By: #### 2 41680 #### [facility],[address] [place] [address] CBC + DIFF Normal [facility] Comment on above: Result Comment: CBC- COMPLETE BLOOD COUNT Performed By: #### 2 06587 #### [facility],[address] [place] [address] Eosinophils (Bld) [#/Vol] 0.00 x10EE3/UL Normal 0.00 - 0.50 [facility] Comment on above: Performed By: #### 2 82036 #### [facility],[address] [place] [address] 06625 Eosinophils/100 WBC (Bld) 0.1 % Normal 0.0 - 7.0 [facility] Comment on above: Performed By: #### 2 83189 #### [facility],[address] [place], [place] [id number] Erythrocyte distribution width (RBC) [Ratio] 15.3 % Normal 12.0 - 15.6 [facility] Comment on above: Performed By: #### 2 50197 #### [facility],[address] [place] [address] Hematocrit (Bld) [Volume fraction] 37.9 % Normal 34.0 - 46.0 [facility] Comment on above: Performed By: #### 2 85908 #### [facility],[address] [place] [address] 16744 Hemoglobin (Bld) [Mass/Vol] 13.2 g/dL Normal 12.0 - 16.0 [facility] Comment on above: Performed By: #### 2 66866 #### [facility],[address] [place] [address] 83699 Lymphocytes (Bld) [#/Vol] 1.80 x10EE3/UL Normal 0.80 - 2.80 [facility] Comment on above: Performed By: #### 2 13805 #### [facility],[address] [place], [place] [id number] Lymphocytes/100 WBC (Bld) 17.8 % Low 20.0 - 45.0 [facility] Comment on above: Performed By: #### 2 35435 #### [facility],[address] [place] [address] 91551 MANUAL DIFF N/A Normal [facility] Comment on above: Performed By: #### 2 05140 #### [facility],[address] [place], [place] [id number] MCH (RBC) [Entitic mass] 29 pg Normal 27 - 33 [facility] Comment on above: Performed By: #### 2 75139 #### [facility],[address] [place] [address] 89201 MCHC (RBC) [Mass/Vol] 35 X10 3 Normal 32 - 36 [facility] Comment on above: Performed By: #### 2 76560 #### [facility],[address] [place] [address] 84327 MCV (RBC) [Entitic vol] 83 fL Normal 80 - 99 [facility] Comment on above: Performed By: #### 2 54515 #### [address] [address] Monocytes (Bld) [#/Vol] 0.30 x10EE3/UL Normal 0.20 - 1.00 [facility] Comment on above: Performed By: #### 2 93268 #### [address],[place] [address] MONOS % 3.3 % Normal 0.0 - 10.0 [facility] Comment on above: Performed By: #### 2 10589 #### [facility],[address] [place] [address] 76693 Morphology Bart (Bld) [Interp] N/A Normal [facility] Comment on above: Performed By: #### 2 92930 #### [facility],[address] [place] [address] 39960 Neutrophils (Bld) [#/Vol] 8.00 x10EE3/UL High 1.50 - 7.10 [facility] Comment on above: Performed By: #### 2 65171 #### [address] [address] Neutrophils/100 WBC (Bld) 77.8 % High 46.0 - 76.0 [facility] Comment on above: Performed By: #### 2 76428 #### [facility],[address] [place] [address] 79973 Platelet mean volume (Bld) [Entitic vol] 8.5 fL Normal 6.6 - 10.5 [facility] Comment on above: Result Comment: AUTO MATED DIFFERENTIAL Performed By: #### 2 51955 #### [address] [address] Platelets (Bld) [#/Vol] 243 x10EE3/UL Normal 150 - 450 [facility] Comment on above: Performed By: #### 2 95626 #### [facility],[address] [place] [address] 32719 RBC (Bld) [#/Vol] 4.57 x 10EE6/UL Normal 4.10 - 5.30 [facility] Comment on above: Performed By: #### 2 29901 #### [facility],[address] [place] [address] 48634 WBC (Bld) [#/Vol] 10.3 x 10EE3/UL Normal 4.5 - 10.[address] [facility] Comment on above: Performed By: #### 2 22700 #### [facility],[address] [place] [address] 26709 CMP with eGFRon 12-19-2018 Age - Reported 58 years Normal [facility] Comment on above: Performed By: #### 2 05580 #### [facility],[address] [place] [address] 06414 Albumin [Mass/Vol] 4.3 g/dL Normal 3.4 - 4.8 [facility] Comment on above: Performed By: #### 2 59952 #### [facility],[address] [place] [address] Albumin/Globulin [Mass ratio] 1.5 {ratio} Normal 0.9 - 1.6 [facility] Comment on above: Performed By: #### 2 96860 #### [facility],[address] [place] [address] 13608 ALK PHOS 77 U/L Normal 38 - 126 [facility] Comment on above: Performed By: #### 2 95398 #### [facility],[address] [place] [address] 09794 ALT/SGPT 15 U/L Normal 8 - 35 [facility] Comment on above: Performed By: #### 2 95926 #### [facility],[address] [place] [address] 45990 Anion gap [Moles/Vol] 13 mmol/L Normal 10 - 20 [facility] Comment on above: Performed By: #### 2 26769 #### [address] [address] AST/SGOT 12 U/L Low 13 - 39 [facility] Comment on above: Performed By: #### 2 27898 #### [facility],[address] [place] [address] 52331 B/C RATIO 24 ratio Normal 0 - 30 [facility] Comment on above: Performed By: #### 2 18149 #### [facility],[address] [place] [address] 06718 Bilirubin [Mass/Vol] 0.3 mg/dL Normal 0.0 - 1.5 [facility] Comment on above: Performed By: #### 2 86242 #### [facility],[address] [place] [address] 15900 Calcium [Mass/Vol] 9.9 mg/dL Normal 8.6 - 10.2 [facility] Comment on above: Performed By: #### 2 32459 #### [facility],[address] [place] [address] 74130 Chloride [Moles/Vol] 102 mmol/L Normal 98 - 107 [facility] Comment on above: Performed By: #### 2 73237 #### [facility],[address] [place] [address] 74082 CO2 [Moles/Vol] 25.7 mmol/L Normal 21.0 - 31.0 [facility] Comment on above: Performed By: #### 2 78834 #### [facility],[address] [place] [address] 57781 Creatinine [Mass/Vol] 0.8 mg/dL Normal 0.6 - 1.2 [facility] Comment on above: Performed By: #### 2 00736 #### [facility],[address] [place] [address] 08311 GFR/1.73 sq M predicted among non-blacks MDRD (S/P/Bld) [Vol rate/Area] mL/min/{1.73_m2} Normal 60 - 999 [facility] Comment on above: Performed By: #### 2 34284 #### [facility],[address] [place] [address] 63460 Result Comment: ACCO RDING TO THE NATIONAL KIDNEY DISEASE EDUCATION PROGRAM(NKDE), A NORMAL eGFR IS A VALUE GREATER THAN OR EQUAL TO 60 ML/MIN/1.73 SQ METERS. CHRONIC KIDNEY DISEASE: <60mL/MIN/1.73 SQ METERS KIDNEY FAILURE: <15mL/MIN/1.73 SQ METERS THIS TEST SHOULD ONLY BE USED FOR PATIENTS 18 YEARS OF AGE AND OLDER. GFR/1.73 sq M predicted among non-blacks MDRD (S/P/Bld) [Vol rate/Area] Normal [facility] Comment on above: Result Comment: COMP REHENSIVE METABOLIC PANEL Performed By: #### 2 22807 #### [facility],[address] [place] [address] 49945 Globulin (S) [Mass/Vol] 2.9 g/dL Normal 1.5 - 3.8 [facility] Comment on above: Performed By: #### 2 76180 #### [facility],[address] [place] [address] 32269 Glucose [Mass/Vol] 296 mg/dL High 74 - 106 [facility] Comment on above: Performed By: #### 2 24101 #### [facility],[address] [place] [address] 35038 Potassium [Moles/Vol] 3.7 mmol/L Normal 3.5 - 5.1 [facility] Comment on above: Performed By: #### 2 50743 #### [address] [address] Protein [Mass/Vol] 7.2 g/dL Normal 6.4 - 8.3 [facility] Comment on above: Performed By: #### 2 54923 #### [facility],[address] [place] [address] 39773 Sodium [Moles/Vol] 137 mmol/L Normal 136 - 145 [facility] Comment on above: Performed By: #### 2 07374 #### [facility],[address] [place] [address] 73383 Urea nitrogen [Mass/Vol] 19 mg/dL Normal 6 - 20 [facility] Comment on above: Performed By: #### 2 30338 #### [facility],[address] [address] Vital Signs Date Time Vital Sign Value Performing Clinician Zack rossi 01-16-2025 09:44-0400 Body height 154.94 cm Yvrose Carreon PROCTOLOGIST-C Work Phone: 8(712)934-095774 [place] [address] 01-16-2025 09:44-0400 Body mass index (BMI) [Ratio] 42.1 kg/m2 Yvrose Carreon PROCTOLOGIST-C Work Phone: 9(385)824-726874 [place] [address] 01-16-2025 09:44-0400 Body weight 101.15 kg Yvrose Carreon PROCTOLOGIST-C Work Phone: 0(789)021-640474 [place] [address] 01-12-2025 14:05-0400 Body weight 102.6 kg Yvrose Carreon PROCTOLOGIST-C Work Phone: 3(307)494-192074 [place] [address] 01-07-2025 07:26-0400 Body mass index (BMI) [Ratio] 42.1 kg/m2 Yvrose Carreon PROCTOLOGIST-C Work Phone: 3(396)913-912374 [place] [address] 01-07-2025 07:26-0400 Body weight 101.15 kg Yvrose Carreon PROCTOLOGIST-C Work Phone: 1(502)400-507874 [place] [address] 01-07-2025 07:26-0400 Diastolic blood pressure 77 mm[Hg] Yvrose Carreon PROCTOLOGIST-C Work Phone: 1(927)527-710074 [place] [address] 01-07-2025 07:26-0400 Heart rate 87 /min Yvrose Carreon PROCTOLOGIST-C Work Phone: 0(199)608-031974 [place] [address] 01-07-2025 07:26-0400 Respiratory rate 20 /min Yvrose Carreon PROCTOLOGIST-C Work Phone: 6(275)162-180674 [place] [address] 01-07-2025 07:26-0400 SaO2% (BldA) [Mass fraction] 99 % Yvrose Carreon PROCTOLOGIST-C Work Phone: 9(648)511-521274 [place] [address] 01-07-2025 07:26-0400 Systolic blood pressure 127 mm[Hg] Yvrose Carreon PROCTOLOGIST-C Work Phone: 4(422)646-560274 [place] [address] 12-02-2024 09:37-0400 Body height 154.94 cm Yvrose Carreon PROCTOLOGIST-C Work Phone: 8(317)382-444074 [place] [address] 12-02-2024 09:37-0400 Body weight 97.79 kg Yvrose Carreon PROCTOLOGIST-C Work Phone: 7(272)186-717774 [place] [address] 11-03-2024 10:04-0400 Body height 154.94 cm Yvrose Carreon PROCTOLOGIST-C Work Phone: 8(769)261-415474 [place] [address] 11-03-2024 10:04-0400 Body mass index (BMI) [Ratio] 41.8 kg/m2 Yvrosecandy Carreon PROCTOLOGIST-C Work Phone: 8(774)232-103674 [place] [address] 11-03-2024 10:04-0400 Body weight 100.41 kg Yvrose Carreon PROCTOLOGIST-C Work Phone: 6(954)527-570074 [place] [address] 11-03-2024 10:04-0400 Diastolic blood pressure 62 mm[Hg] Yvrose Carreon PROCTOLOGIST-C Work Phone: 1(545)054-684774 [place] [address] 11-03-2024 10:04-0400 Heart rate 60 /min Yvrosecandy Carreon PROCTOLOGIST-C Work Phone: 2(009)755-852774 [place] [address] 11-03-2024 10:04-0400 Systolic blood pressure 128 mm[Hg] Yvrose Carreon PROCTOLOGIST-C Work Phone: 5(496)426-130074 [place] [address] 10-29-2024 13:50-0400 Body height 154.94 cm Yvrose Carreon PROCTOLOGIST-C Work Phone: 4(596)201-742674 [place] [address] 10-29-2024 13:50-0400 Body weight 100.42 kg Yvrose Carreon PROCTOLOGIST-C Work Phone: 5(369)987-063074 [place] [address] 10-16-2024 09:06-0400 Body height 154.94 cm Yvrose Carreon PROCTOLOGIST-C Work Phone: 3(281)807-640174 [place] [address] 10-16-2024 09:06-0400 Body mass index (BMI) [Ratio] 40.6 kg/m2 Yvrose Carreon PROCTOLOGIST-C Work Phone: 6(385)749-125174 [place] [address] 10-16-2024 09:06-0400 Body weight 97.52 kg Yvrosecandy Carreon PROCTOLOGIST-C Work Phone: 0(200)160-480574 [place] [address] 09-18-2024 10:29-0400 Body height 154.94 cm Yvroseapolinar Carreon PROCTOLOGIST-C Work Phone: 0(087)075-788574 [place] [address] 09-18-2024 09:43-0400 Body height 154.94 cm Yvrosecandy Carreon PROCTOLOGIST-C Work Phone: 8(936)331-296474 [place] [address] 09-18-2024 09:43-0400 Body mass index (BMI) [Ratio] 41 kg/m2 Yvrosecandy Carreon PROCTOLOGIST-C Work Phone: 6(373)639-869274 [place] [address] 09-18-2024 09:43-0400 Body weight 98.42 kg Yvrosecandy Carreno PROCTOLOGIST-C Work Phone: 5(442)153-945274 [place] [address] 08-22-2024 10:48-0400 Body height 154.94 cm Yvrosecandy Carreon PROCTOLOGIST-C Work Phone: 4(118)652-308374 [place] [address] 08-22-2024 10:48-0400 Body mass index (BMI) [Ratio] 40.6 kg/m2 Yvrosecandy Carreon PROCTOLOGIST-C Work Phone: 6(785)509-392174 [place] [address] 08-22-2024 10:48-0400 Body weight 97.52 kg Yvroseapolinar Carreon PROCTOLOGIST-C Work Phone: 8(577)926-815874 [place] [address] 08-13-2024 11:11-0400 Body height 154.94 cm Yvrosecandy Carreon PROCTOLOGIST-C Work Phone: 5(648)399-236974 [place] [address] 07-15-2024 10:44-0400 Body mass index (BMI) [Ratio] 41.5 kg/m2 Yvrose Carreon PROCTOLOGIST-C Work Phone: 8(998)403-803374 [place] [address] 07-15-2024 10:44-0400 Body weight 99.79 kg Yvrosecandy Carreon PROCTOLOGIST-C Work Phone: 0(551)991-980774 [place] [address] 04-25-2024 11:58-0500 Body mass index (BMI) [Ratio] 42.3 kg/m2 Yvrose Carreon PROCTOLOGIST-C Work Phone: 1(958)745-015074 [place] [address] 04-25-2024 11:58-0500 Body temperature 98.6 [degF] Yvrose Carreon PROCTOLOGIST-C Work Phone: 7(998)656-783156 [place] [address] 04-25-2024 11:58-0500 Body weight 101.6 kg Yvrose Carreon PROCTOLOGIST-C Work Phone: 3(137)458-663874 [place] [address] 04-25-2024 11:58-0500 Diastolic blood pressure 78 mm[Hg] Yvrose Carreon PROCTOLOGIST-C Work Phone: 5(244)739-959374 [place] [address] 04-25-2024 11:58-0500 Heart rate 76 /min Yvrose Carreon PROCTOLOGIST-C Work Phone: 8(313)983-435374 [place] [address] 04-25-2024 11:58-0500 SaO2% (BldA) [Mass fraction] 98 % Yvrose Carreon PROCTOLOGIST-C Work Phone: 8(273)861-670205 [address] 04-25-2024 11:58-0500 Systolic blood pressure 124 mm[Hg] Yvrose Carreon PROCTOLOGIST-C Work Phone: 1(793)846-378974 [place] [address] 07-26-2023 14:11-0400 Body temperature 98.2 [degF] [facility] Work Phone: 3(141)897-904074 [place] [address] 07-26-2023 14:11-0400 Diastolic blood pressure 61 mm[Hg] [facility] Work Phone: 9(934)874-206474 [place] [address] 07-26-2023 14:11-0400 Heart rate 94 /min [facility] Work Phone: 7(581)564-366405 [address] 07-26-2023 14:11-0400 Respiratory rate 18 /min [facility] Work Phone: 7(189)892-952474 [place] [address] 07-26-2023 14:11-0400 SaO2% (BldA) [Mass fraction] 94 % [facility] Work Phone: 7(916)053-477274 [place] [address] 07-26-2023 14:11-0400 Systolic blood pressure 129 mm[Hg] [facility] Work Phone: 0(810)777-231374 [place] [address] 07-26-2023 09:39-0400 Inhaled oxygen flow rate 0 L/min [facility] Work Phone: [facility] 07-25-2023 17:51-0400 Body height 160.02 cm [facility] Work Phone: 9(830)169-262874 [place] [address] 07-25-2023 17:51-0400 Body mass index (BMI) [Ratio] 42 kg/m2 [facility] Work Phone: 2(573)968-035374 [place] [address] 07-25-2023 17:51-0400 Body weight 107.8 kg [facility] Work Phone: 3(832)677-000274 [place] [address] 07-03-2023 09:22-0400 Body height 160.02 cm [facility] [facility] Work Phone: 8(150)259-098874 [place] [address] 07-03-2023 09:22-0400 Body mass index (BMI) [Ratio] 42.3 kg/m2 [facility] Work Phone: 7(654)707-493774 [place] [address] 07-03-2023 09:22-0400 Body weight 108.52 kg [facility] Work Phone: 2(509)181-192674 [place] [address] 04-01-2023 12:07-0500 Body temperature 98.4 [degF] [facility] Work Phone: 6(683)645-856174 [place] [address] 04-01-2023 12:07-0500 Diastolic blood pressure 88 mm[Hg] [facility] Work Phone: 0(789)833-412174 [place] [address] 04-01-2023 12:07-0500 Heart rate 104 /min [facility] Work Phone: 3(608)657-960274 [place] [address] 04-01-2023 12:07-0500 Respiratory rate 18 /min [facility] Work Phone: 2(249)098-827574 [place] [address] 04-01-2023 12:07-0500 SaO2% (BldA) [Mass fraction] 96 % [facility] Work Phone: 6(759)339-567074 [place] [address] 04-01-2023 12:07-0500 Systolic blood pressure 142 mm[Hg] [facility] Work Phone: 7(296)731-431474 [place] [address] 01-04-2023 15:05-0400 Body height 160.02 cm [facility] Work Phone: 6(101)691-741174 [place] [address] 01-04-2023 15:05-0400 Body mass index (BMI) [Ratio] 46.4 kg/m2 [facility] Work Phone: 5(582)354-186174 [place] [address] 01-04-2023 15:05-0400 Body weight 118.84 kg [facility] Work Phone: 2(303)253-475174 [place] [address] 01-04-2023 15:05-0400 Diastolic blood pressure 74 mm[Hg] [facility] Work Phone: 2(925)270-414174 [place] [address] 01-04-2023 15:05-0400 Heart rate 89 /min [facility] Work Phone: 1(032)255-535574 [place] [address] 01-04-2023 15:05-0400 Respiratory rate 22 /min [facility] Work Phone: 5(870)543-238974 [place] [address] 01-04-2023 15:05-0400 SaO2% (BldA) [Mass fraction] 98 % [facility] Work Phone: 5(309)198-348174 [place] [address] 01-04-2023 15:05-0400 Systolic blood pressure 138 mm[Hg] [facility] Work Phone: 4(739)684-403974 [place] [address] 12-13-2022 10:30-0400 Body weight 118.2 kg [facility] Work Phone: 5(559)938-806774 [place] [address] 12-01-2022 00:11-0400 Body weight 117.66 kg [facility] Work Phone: 3(817)244-897974 [place] [address] 11-29-2022 14:30-0400 Body height 160.02 cm [facility] Work Phone: 6(922)023-784274 [place] [address] 11-29-2022 14:30-0400 Body weight 118.2 kg [facility] Work Phone: 5(193)453-955074 [place] [address] 11-14-2022 10:08-0400 Body weight 117.66 kg [facility] Work Phone: 2(845)534-913374 [place] [address] 11-08-2022 15:05-0400 Body height 160 cm Otilia Disla APRN.CNP Work Phone: [facility] 11-08-2022 15:05-0400 Body weight 117.44 kg Otilia Disla JULIANA Work Phone: [facility] 11-02-2022 18:05-0400 Diastolic blood pressure 86 mm[Hg] [facility] Work Phone: 5(830)479-126574 [place] [address] 11-02-2022 18:05-0400 Heart rate 88 /min [facility] Work Phone: 9(493)308-472674 [place] [address] 11-02-2022 18:05-0400 Respiratory rate 16 /min [facility] Work Phone: 1(624)701-477974 [place] [address] 11-02-2022 18:05-0400 SaO2% (BldA) [Mass fraction] 97 % [facility] Work Phone: 0(716)703-742974 [place] [address] 11-02-2022 18:05-0400 Systolic blood pressure 134 mm[Hg] [facility] Work Phone: 1(719)925-367974 [place] [address] 11-02-2022 15:25-0400 Body height 160.02 cm [facility] Work Phone: 3(414)672-823374 [place] [address] 11-02-2022 15:25-0400 Body mass index (BMI) [Ratio] 46.3 kg/m2 [facility] Work Phone: 3(284)920-773874 [place] [address] 11-02-2022 15:25-0400 Body temperature 97.1 [degF] [facility] Work Phone: 2(366)597-062374 [place] [address] 11-02-2022 15:25-0400 Body weight 118.47 kg [facility] Work Phone: 9(714)507-602774 [place] [address] 10-18-2022 10:06-0400 Body height 160.02 cm [facility] Work Phone: 3(563)011-630674 [place] [address] 10-18-2022 10:06-0400 Body weight 115.84 kg [facility] Work Phone: 5(674)509-307874 [place] [address] 09-27-2022 10:36-0400 Body temperature 97 [degF] [facility] Work Phone: 6(821)056-335174 [place] [address] 09-27-2022 10:36-0400 Diastolic blood pressure 89 mm[Hg] [facility] Work Phone: 6(667)155-203174 [place] [address] 09-27-2022 10:36-0400 Heart rate 82 /min [facility] Work Phone: 8(661)268-467974 [place] [address] 09-27-2022 10:36-0400 Respiratory rate 16 /min [facility] Work Phone: 1(774)006-053974 [place] [address] 09-27-2022 10:36-0400 SaO2% (BldA) [Mass fraction] 92 % [facility] Work Phone: 2(033)709-216974 [place] [address] 09-27-2022 10:36-0400 Systolic blood pressure 140 mm[Hg] [facility] Work Phone: 6(952)196-025474 [place] [address] 09-27-2022 10:15-0400 Inhaled oxygen flow rate 2 L/min [facility] Work Phone: 1(043)228-256274 [place] [address] 09-27-2022 09:04-0400 Body height 160.02 cm [facility] Work Phone: 1(204)379-659774 [place] [address] 09-26-2022 08:14-0400 Body weight 118.38 kg [facility] Work Phone: 1(400)249-849774 [place] [address] 09-19-2022 10:10-0400 Body weight 115.93 kg [facility] Work Phone: 1(653)052-858274 [place] [address] 09-14-2022 15:09-0400 Body temperature 97.7 [degF] [facility] Work Phone: 6(810)282-381374 [place] [address] 09-14-2022 15:09-0400 Body weight 116.11 kg [facility] Work Phone: 8(053)587-741474 [place] [address] 09-14-2022 15:09-0400 Diastolic blood pressure 70 mm[Hg] [facility] Work Phone: 8(143)445-280874 [place] [address] 09-14-2022 15:09-0400 Heart rate 95 /min [facility] Work Phone: 1(287)720-720874 [place] [address] 09-14-2022 15:09-0400 Respiratory rate 18 /min [facility] Work Phone: [facility] 09-14-2022 15:09-0400 SaO2% (BldA) [Mass fraction] 94 % [facility] Work Phone: 6(103)707-515574 [place] [address] 09-14-2022 15:09-0400 Systolic blood pressure 145 mm[Hg] [facility] Work Phone: 8(439)330-471974 [place] [address] 09-01-2022 12:52-0400 Body height 160.02 cm [facility] Work Phone: 1(772)817-299774 [place] [address] 09-01-2022 12:52-0400 Body mass index (BMI) [Ratio] 46.5 kg/m2 [facility] Work Phone: 7(045)388-667174 [place] [address] 09-01-2022 12:52-0400 Body temperature 98.5 [degF] [facility] Work Phone: 1(701)509-120774 [place] [address] 09-01-2022 12:52-0400 Body weight 119.29 kg [facility] Work Phone: 8(659)571-709174 [place] [address] 09-01-2022 12:52-0400 Diastolic blood pressure 72 mm[Hg] [facility] Work Phone: 6(674)931-656974 [place] [address] 09-01-2022 12:52-0400 Heart rate 103 /min [facility] Work Phone: 9(877)965-831174 [place] [address] 09-01-2022 12:52-0400 Respiratory rate 18 /min [facility] Work Phone: 1(278)089-621274 [place] [address] 09-01-2022 12:52-0400 SaO2% (BldA) [Mass fraction] 99 % [facility] Work Phone: 4(679)475-187274 [place] [address] 09-01-2022 12:52-0400 Systolic blood pressure 174 mm[Hg] [facility] Work Phone: 7(460)647-338074 [place] [address] 09-01-2022 12:21-0400 Body temperature 97.5 [degF] [facility] Work Phone: 4(251)583-468974 [place] [address] 09-01-2022 12:21-0400 Diastolic blood pressure 78 mm[Hg] [facility] Work Phone: 3(610)484-512674 [place] [address] 09-01-2022 12:21-0400 Heart rate 106 /min [facility] Work Phone: 6(965)160-484774 [place] [address] 09-01-2022 12:21-0400 Respiratory rate 14 /min [facility] Work Phone: 5(417)249-490874 [place] [address] 09-01-2022 12:21-0400 SaO2% (BldA) [Mass fraction] 96 % [facility] Work Phone: 0(442)909-166474 [place] [address] 09-01-2022 12:21-0400 Systolic blood pressure 138 mm[Hg] [facility] Work Phone: 1(927)982-972374 [place] [address] 08-31-2022 00:36-0400 Body weight 118.75 kg [facility] Work Phone: 4(860)498-342874 [place] [address] 08-28-2022 14:00-0400 Body temperature 97.8 [degF] [facility] Work Phone: 5(305)121-190774 [place] [address] 08-28-2022 14:00-0400 Diastolic blood pressure 85 mm[Hg] [facility] Work Phone: 6(338)747-711574 [place] [address] 08-28-2022 14:00-0400 Heart rate 72 /min [facility] Work Phone: 5(293)074-976174 [place] [address] 08-28-2022 14:00-0400 Respiratory rate 16 /min [facility] Work Phone: 7(880)723-779874 [place] [address] 08-28-2022 14:00-0400 SaO2% (BldA) [Mass fraction] 97 % [facility] Work Phone: 0(723)234-769774 [place] [address] 08-28-2022 14:00-0400 Systolic blood pressure 134 mm[Hg] [facility] Work Phone: 4(194)642-392074 [place] [address] 08-28-2022 11:00-0400 Body height 157.48 cm [facility] Work Phone: 8(697)917-961974 [place] [address] 08-28-2022 11:00-0400 Body mass index (BMI) [Ratio] 47.9 kg/m2 [facility] Work Phone: 5(240)434-941574 [place] [address] 08-28-2022 11:00-0400 Body weight 118.84 kg [facility] Work Phone: 2(341)781-243974 [place] [address] 08-22-2022 10:15-0400 Body weight 118.11 kg [facility] Work Phone: 6(785)540-134074 [place] [address] 08-11-2022 15:56-0400 Body mass index (BMI) [Ratio] 45.7 kg/m2 [facility] Work Phone: 2(580)820-574274 [place] [address] 08-11-2022 15:56-0400 Body temperature 97.5 [degF] [facility] Work Phone: 8(315)669-361874 [place] [address] 08-11-2022 15:56-0400 Body weight 113.39 kg [facility] Work Phone: 6(155)177-305274 [place] [address] 08-11-2022 15:56-0400 Diastolic blood pressure 68 mm[Hg] [facility] Work Phone: 8(740)991-967174 [place] [address] 08-11-2022 15:56-0400 Heart rate 107 /min [facility] Work Phone: 5(092)842-073974 [place] [address] 08-11-2022 15:56-0400 Respiratory rate 18 /min [facility] Work Phone: 3(622)861-018774 [place] [address] 08-11-2022 15:56-0400 SaO2% (BldA) [Mass fraction] 94 % [facility] Work Phone: 8(769)418-360274 [place] [address] 08-11-2022 15:56-0400 Systolic blood pressure 148 mm[Hg] [facility] Work Phone: 8(113)028-459274 [place] [address] 07-31-2022 00:44-0400 Body weight 118.75 kg [facility] Work Phone: 5(742)394-662474 [place] [address] 07-17-2022 10:10-0400 Body height 160.02 cm [facility] Work Phone: 6(040)837-359474 [place] [address] 07-17-2022 10:10-0400 Body weight 118.75 kg [facility] Work Phone: 7(004)878-575474 [place] [address] 07-03-2022 13:42-0400 Body height 160.02 cm [facility] Work Phone: 8(427)379-996105 [address] 07-03-2022 13:42-0400 Body weight 117.[address] [facility] Work Phone: 7(219)498-127374 [place] [address] 06-19-2022 14:12-0400 Body height 160.02 cm [facility] Work Phone: 4(736)936-135874 [place] [address] 06-19-2022 14:12-0400 Body weight 118.02 kg [facility] Work Phone: 5(774)162-705474 [place] [address] 05-24-2022 11:04-0500 Body height 160.02 cm [facility] Work Phone: 7(996)546-795574 [place] [address] 05-24-2022 10:46-0500 Body mass index (BMI) [Ratio] 45.7 kg/m2 [facility] Work Phone: 9(891)966-185974 [place] [address] 05-24-2022 10:46-0500 Body weight 117.14 kg [facility] Work Phone: 3(154)512-374674 [place] [address] 01-13-2022 15:00-0400 Body height 160.02 cm [facility] Work Phone: 3(175)189-010774 [place] [address] Work Phone: 01-13-2022 15:00-0400 Body mass index (BMI) [Ratio] 44.1 kg/m2 [facility] Work Phone: 5(572)045-532056 [place] [address] Work Phone: 01-13-2022 15:00-0400 Body temperature 97.9 [degF] [facility] Work Phone: 6(154)096-614656 [place] [address] Work Phone: 01-13-2022 15:00-0400 Body weight 112.94 kg [facility] Work Phone: 7(113)515-998056 [place] [address] Work Phone: 01-13-2022 15:00-0400 Diastolic blood pressure 77 mm[Hg] [facility] Work Phone: 9(427)454-674256 [place] [address] Work Phone: 01-13-2022 15:00-0400 Heart rate 99 /min [facility] Work Phone: [facility] Work Phone: 01-13-2022 15:00-0400 Respiratory rate 18 /min [facility] Work Phone: [facility] Work Phone: 01-13-2022 15:00-0400 SaO2% (BldA) [Mass fraction] 99 % [facility] Work Phone: [facility] Work Phone: 01-13-2022 15:00-0400 Systolic blood pressure 158 mm[Hg] [facility] Work Phone: [facility] Work Phone: 10-19-2021 11:45-0400 Body mass index (BMI) [Ratio] 42.8 kg/m2 [facility] Work Phone: [facility] Work Phone: 10-19-2021 11:45-0400 Body weight 109.76 kg [facility] Work Phone: [facility] Work Phone: 10-19-2021 11:45-0400 Diastolic blood pressure 83 mm[Hg] [facility] Work Phone: [facility] Work Phone: 10-19-2021 11:45-0400 Heart rate 91 /min [facility] Work Phone: [facility] Work Phone: 10-19-2021 11:45-0400 Respiratory rate 22 /min [facility] Work Phone: [facility] Work Phone: 10-19-2021 11:45-0400 SaO2% (BldA) [Mass fraction] 95 % [facility] Work Phone: [facility] Work Phone: 10-19-2021 11:45-0400 Systolic blood pressure 134 mm[Hg] [facility] Work Phone: [facility] Work Phone: 09-27-2021 07:42-0400 Body height 160.[address] [facility] Work Phone: [facility] Work Phone: 09-27-2021 07:42-0400 Body weight 109.76 kg [facility] Work Phone: [facility] Work Phone: 09-26-2021 07:58-0400 Body mass index (BMI) [Ratio] 42.8 kg/m2 [facility] Work Phone: [facility] Work Phone: 08-11-2021 11:03-0400 Body mass index (BMI) [Ratio] 42.8 kg/m2 [facility] Work Phone: [facility] Work Phone: 08-11-2021 11:03-0400 Body weight 109.76 kg [facility] Work Phone: [facility] Work Phone: 08-11-2021 11:03-0400 Diastolic blood pressure 86 mm[Hg] [facility] Work Phone: [facility] Work Phone: 08-11-2021 11:03-0400 Heart rate 100 /min [facility] Work Phone: [facility] Work Phone: 08-11-2021 11:03-0400 Respiratory rate 18 /min [facility] Work Phone: [facility] Work Phone: 08-11-2021 11:03-0400 Systolic blood pressure 148 mm[Hg] [facility] Work Phone: [facility] Work Phone: 08-11-2021 11:03-0400 Body height 160.[address] [facility] Work Phone: [facility] Work Phone: 08-11-2021 11:03-0400 Body mass index (BMI) [Ratio] 42.8 kg/m2 [facility] Work Phone: [facility] Work Phone: 08-11-2021 11:03-0400 Body weight 109.[address] [facility] Work Phone: [facility] Work Phone: 08-11-2021 11:03-0400 Diastolic blood pressure 86 mm[Hg] [facility] Work Phone: [facility] Work Phone: 08-11-2021 11:03-0400 Heart rate 100 /min [facility] Work Phone: [facility] Work Phone: 08-11-2021 11:03-0400 Respiratory rate 18 /min [facility] Work Phone: [facility] Work Phone: 08-11-2021 11:03-0400 Systolic blood pressure 148 mm[Hg] [facility] Work Phone: [facility] Work Phone: 08-03-2021 13:22-0400 Body mass index (BMI) [Ratio] 43.9 kg/m2 [facility] Work Phone: [facility] Work Phone: 08-03-2021 13:22-0400 Body weight 112.[address] [facility] Work Phone: [facility] Work Phone: 08-03-2021 13:22-0400 Body mass index (BMI) [Ratio] 43.9 kg/m2 [facility] Work Phone: [facility] Work Phone: 08-03-2021 13:22-0400 Body weight 112.49 kg [facility] Work Phone: [facility] Work Phone: Encounters Encounter Date Encounter Type Care Provider Facility Start: 03-02-2025 ambulatory Yvrose Carreon [facility] Fa cility:[facility] Start: 01-26-2025 End: 01-26-2025 ambulatory [facility] Facility:[facility] Start: 01-16-2025 End: 01-16-2025 Patient encounter procedure Christiana Amaral PROCTOLOGIST-C -[facility] Work Phone: Start: 01-16-2025 End: 01-16-2025 ambulatory Yvrose Nikhil PROCTOLOGIST-C Work Phone: -[facility] Start: 01-14-2025 ambulatory Yvrose Nikhil [facility] Fa cility:[facility] Start: 01-14-2025 Non-patient / Non-visit Dr. Flor smith MD -[facility]- Start: 01-14-2025 End: 01-14-2025 Patient encounter procedure [facility] Yvrose Nikhil PROCTOLOGIST-C -Pulmonary Services/Neurology Work Phone: Start: 01-14-2025 End: 01-14-2025 ambulatory Yvrose Nikhil [facility] Facility:[facility] Start: 01-12-2025 Registered Recurring Christiana Amaral PROCTOLOGIST-C -Nutritional Services Work Phone: Start: 01-12-2025 End: 01-30-2025 [facility] Start: 01-08-2025 Non-patient / Non-visit Kajal giles LPN -[facility] Work Phone: Start: 01-08-2025 [facility] Start: 01-07-2025 End: 01-07-2025 Patient encounter procedure Riley Ruiz PROCTOLOGIST-C -[facility] Work Phone: Start: 01-07-2025 End: 01-07-2025 ambulatory Yvrose Nikhil PROCTOLOGIST-C Work Phone: -[facility] Start: 01-07-2025 ambulatory Yvrose Carreon [facility] Fa cility:[facility] Start: 01-05-2025 End: 01-05-2025 ambulatory Yvrose Nikhil PROCTOLOGIST-C Work Phone: -[facility] Start: 01-05-2025 End: 01-05-2025 Patient encounter procedure Tacho Lai PROCTOLOGIST-C -[facility] Start: 01-05-2025 End: 01-05-2025 [facility] Start: 12-29-2024 Non-patient / Non-visit Miryam rausch -[facility] Work Phone: Start: 12-29-2024 ambulatory [facility] Fa [facility]ility:[facility] Start: 12-15-2024 End: 12-15-2024 ambulatory Yvrose Carreon PROCTOLOGIST-C Work Phone: -[facility] Start: 12-15-2024 End: 12-15-2024 Patient encounter procedure Tacho Lai PROCTOLOGIST-C -[facility] Work Phone: Start: 12-15-2024 End: 12-15-2024 ambulatory Yvrose [facility] Facility:[facility] Start: 12-02-2024 End: 12-30-2024 Discharged Recurring Christiana Amaral PROCTOLOGIST-C -Nutritional Servic es Work Phone: Start: 12-02-2024 Registered Recurring Christiana Amaral PROCTOLOGIST-C -Nutritional Services Work Phone: Start: 12-02-2024 End: 12-30-2024 ambulatory Yvrose Nikhil PROCTOLOGIST-C Work Phone: -Nutritional Services Start: 11-03-2024 End: 11-03-[address] Triny Moctezuma MD -[facility] Work Phone: Start: 11-03-2024 End: 11-03-2024 ambulatory Yvroseapolinar Carreon PROCTOLOGIST-C Work Phone: -[facility] Start: 10-29-2024 End: 10-30-2024 Discharged Recurring Christiana Amaral PROCTOLOGIST-C -[facility]al Serv[facility] es Work Phone: Start: 10-29-2024 End: 10-30-2024 ambulatory Yvrose Nikhil PROCTOLOGIST-C Work Phone: -Nutritional Services Start: 10-16-2024 End: 10-16-2024 Patient encounter procedure Christiana Amaral PROCTOLOGIST-C -[facility] Work Phone: Start: 10-16-2024 End: 10-16-2024 ambulatory Yvrose Carreon PROCTOLOGIST-C Work Phone: -[facility] Start: 10-09-2024 End: 10-09-2024 Patient encounter procedure Christiana Amaral PROCTOLOGIST-C -[facility] Work Phone: Start: 10-09-2024 End: 10-09-2024 ambulatory Yvrose Nikhil PROCTOLOGIST-C Work Phone: -[facility] Start: 10-07-2024 End: 10-07-2024 ambulatory Yvrose Carreon PROCTOLOGIST-C Work Phone: -Laboratory Start: 10-07-2024 End: 10-07-2024 Patient encounter procedure [facility] Yvrose Nikhil PROCTOLOGIST-C -Laboratory Work Phone: Start: 10-07-2024 End: 10-07-2024 ambulatory Yvroseapolinar Carreon [facility] Facility:[facility] Start: 10-02-2024 End: 10-02-2024 Patient encounter procedure Christiana Amaral PROCTOLOGIST-C -[facility] Work Phone: Start: 10-02-2024 End: 10-02-2024 ambulatory Yvrose Nikhil PROCTOLOGIST-C Work Phone: -[facility] Start: 09-30-2024 Non-patient / Non-visit Dr. Triny rico MD -[facility] Work Phone: Start: 09-19-2024 End: 09-19-2024 ambulatory Yvrose Nikhil PROCTOLOGIST-C Work Phone: -Physical Therapy Start: 09-19-2024 End: 09-19-2024 Discharged Recurring Christiana Amaral PROCTOLOGIST-C -Physical Therapy Work Phone: Start: 09-19-2024 Registered Recurring Christiana Munir PROCTOLOGIST-C -Physical Therapy Work Phone: Start: 09-18-2024 End: 09-18-2024 Patient encounter procedure Christianaarnaldo Amaral PROCTOLOGIST-C -[facility] Work Phone: Start: 09-18-2024 End: 09-18-2024 ambulatory Yvrose Carreon PROCTOLOGIST-C Work Phone: [facility] Work Phone: Start: 09-17-2024 Registered Recurring Christiana Munir PROCTOLOGIST-C -Physical Therapy Work Phone: Start: 09-12-2024 Registered Recurring Christiana Amaral PROCTOLOGIST-C -Physical Therapy Work Phone: Start: 09-09-2024 End: 09-09-2024 ambulatory Yvrose Nikhil PROCTOLOGIST-C [facility] [facility] Work Phone: Start: 09-09-2024 End: 09-09-[address] Edson Adamson MD -[facility] Work Phone: Start: 09-09-2024 End: 09-09-2024 ambulatory Yvrose Carreon [facility] Facility:[facility] Start: 08-22-2024 End: 08-22-2024 Patient encounter procedure Christianaarnaldo Amaral PROCTOLOGIST-C -[facility] Work Phone: Start: 08-22-2024 End: 08-22-2024 ambulatory Yvrose Nikhil VS Facility:[facility] Start: 08-14-2024 End: 08-14-[address] Guanakito Siu MD -[facility] Start: 08-14-2024 End: 08-14-2024 ambulatory Yvrose Carreon PROCTOLOGIST-C Work Phone: [facility] Work Phone: Start: 07-15-2024 End: 07-15-[address]io [address] MD -[facility] Work Phone: Start: 07-15-2024 End: 07-15-2024 ambulatory Yvrose [facility] Facility:[facility] Start: 07-14-2024 ambulatory [facility] Start: 07-08-2024 End: 07-08-2024 Refill David Gallagher MD Work Phone: Urology Comment on above: Refill Request Start: 04-25-2024 End: 04-25-2024 Patient encounter procedure Nicolas ALEX -[facility] Work Phone: Start: 04-25-2024 End: 04-25-2024 [facility] Start: 04-25-2024 End: 04-25-2024 ambulatory [facility] Facility:[facility] Start: 04-12-2024 End: 04-14-2024 Refill Otilia 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 Work Phone: Urology Comment on above: Refill Request Start: 04-08-2024 End: 04-08-2024 ambulatory [facility] Facility:[facility] Start: 03-25-2024 End: 03-25-2024 ambulatory Nicolas ALEX Facility:[facility] Start: 03-25-2024 End: 03-25-2024 ambulatory Nicolas ALEX Facility:[facility] Start: 2024 End: 2024 ambulatory [facility] Facility:[facility] Start: 07-31-2023 Refill Otilia Shelbyyner AERONAUTICAL ENGINEERING TECHNOLOGIST.CATTLE RANCHER Work Phone: Urology Comment on above: Refill Request Start: 07-26-2023 Non-patient / Non-visit [facility] Work Phone: [facility] Work Phone: Start: 07-26-2023 Non-patient / Non-visit [facility] Work Phone: [facility] Start: 07-25-2023 Non-patient / Non-visit [facility] Work Phone: [facility] Inpatient Physicians Work Phone: Start: 07-25-2023 End: 07-26-2023 Evaluation and management of inpatient [facility] Work Phone: [facility]-Medical Surgical 3 Work Phone: Start: 07-25-2023 End: 07-26-2023 observation encounter [facility] Work Phone: [facility] Work Phone: Start: 07-25-2023 Non-patient / Non-visit [facility] Start: 07-05-2023 End: 07-05-2023 ambulatory [facility] Work Phone: [facility] Work Phone: Start: 07-05-2023 End: 07-05-2023 Patient encounter procedure [facility] Work Phone: [facility]-Laboratory, Specimen Work Phone: Start: 07-05-2023 End: 07-05-2023 Non-patient / Non-visit [facility] Work Phone: [facility] Heart Group Work Phone: Start: 07-03-2023 End: 07-03-2023 Patient encounter procedure [facility] Work Phone: [facility] Work Phone: Start: 06-28-2023 End: 06-28-2023 ambulatory [facility] Work Phone: [facility] Work Phone: Start: 06-28-2023 End: 06-28-2023 Patient encounter procedure [facility] Work Phone: [facility]-Laboratory Work Phone: Start: 04-01-2023 End: 04-01-2023 Patient encounter procedure [facility] Work Phone: [facility] Work Phone: Start: 2023 End: 2023 Patient encounter procedure [facility] Work Phone: [facility] Work Phone: Start: 03-17-2023 End: 03-17-2023 ambulatory PROCTOLOGIST-C Yvrose Carreon PROCTOLOGIST Work Phone: [facility] Work Phone: Start: 03-17-2023 End: 03-17-2023 Patient encounter procedure PROCTOLOGIST-C Yvrose Carreon PROCTOLOGIST Work Phone: [facility]-Cat Scan, [facility] Work Phone: Start: 03-06-2023 End: 03-06-2023 Patient encounter procedure PROCTOLOGIST-C Yvrose Carreon PROCTOLOGIST Work Phone: [facility] Work Phone: Start: 02-28-2023 End: 02-28-2023 ambulatory PROCTOLOGIST-C Yvrose Carreon PROCTOLOGIST Work Phone: [facility] Work Phone: Start: 02-28-2023 End: 02-28-2023 Patient encounter procedure PROCTOLOGIST-C Yvrose Carreon PROCTOLOGIST Work Phone: [facility] Work Phone: Start: 02-09-2023 End: 02-09-2023 ambulatory OTILIA DISLA Facility:[facility] Start: 02-08-2023 End: 02-08-2023 Patient encounter procedure PROCTOLOGIST-C Yvrose Carreon PROCTOLOGIST Work Phone: [facility] Work Phone: Start: 01-18-2023 End: 01-18-2023 Patient encounter procedure PROCTOLOGIST-C Yvrose Carreon PROCTOLOGIST Work Phone: [facility] Work Phone: Start: 01-15-2023 End: 01-15-2023 ambulatory [facility] Work Phone: [facility] Work Phone: Start: 01-15-2023 End: 01-15-2023 Discharged Recurring [facility] Work Phone: [facility]-Physical Therapy Work Phone: Start: 01-04-2023 End: 01-04-2023 Patient encounter procedure [facility] Work Phone: [facility] Work Phone: Start: 12-26-2022 End: 12-26-2022 ambulatory CAROLIN RODRIGUEZ Facility:[facility] Start: 12-25-2022 End: 12-25-2022 Patient encounter procedure [facility] Work Phone: [facility] Work Phone: Start: 12-22-2022 End: 12-22-2022 Patient encounter procedure [facility] Work Phone: [facility]-Laboratory Work Phone: Start: 12-18-2022 Registered Recurring [facility] Work Phone: [facility]-Physical Therapy Work Phone: Start: 12-13-2022 End: 12-30-2022 Discharged Recurring [facility] Work Phone: [facility]-Nutritional Services Work Phone: Start: 12-13-2022 Registered Rec[facility] Work Phone: [facility]-Nutritional Services Work Phone: Start: 12-12-2022 End: 12-12-2022 ambulatory [facility] Work Phone: [facility] Work Phone: Start: 12-12-2022 End: 12-12-2022 Patient encounter procedure [facility] Work Phone: [facility]-Outpatient Bone Densitometry Work Phone: Start: 12-01-2022 End: 12-01-2022 ambulatory CAROLIN RODRIGUEZ Facility:[facility] Start: 12-01-2022 End: 12-01-2022 ambulatory Carolin Rodriguez PT Work Phone: [facility] Physical Therapy Comment on above: Urgency of urination (Primary Dx); HOOD (stress urinary incontinence, female) Start: 11-30-2022 Registered Recurring [facility] Work Phone: [facility]-Physical Therapy Work Phone: Start: 11-29-2022 End: 11-30-2022 ambulatory [facility] Work Phone: [facility] Work Phone: Start: 11-29-2022 End: 11-30-2022 Discharged Recurring [facility] Work Phone: [facility]-Nutritional Services Work Phone: Start: 11-24-2022 End: 11-24-2022 ambulatory Carolin Rodriguez PT Work Phone: [facility] Physical Therapy Comment on above: Urgency of urination (Primary Dx); HOOD (stress urinary incontinence, female) Start: 11-24-2022 Telephone encounter Otilia garcia APRN.CATTLE RANCHER Work Phone: Urology Comment on above: Urology Outside [facility] Start: 11-14-2022 End: 11-14-2022 ambulatory CAROLIN RODRIGUEZ Facility:[facility] Start: 11-14-2022 End: 11-14-2022 ambulatory Carolin Rodriguez PT Work Phone: [facility] Physical Therapy Comment on above: Urgency of urination (Primary Dx); HOOD (stress urinary incontinence, female) Start: 11-13-2022 End: 11-13-2022 Patient encounter procedure [facility] Work Phone: [facility] Work Phone: Start: 11-08-2022 End: 11-08-2022 ambulatory OTILIA DISLA Facility:[facility] Start: 11-08-2022 End: 11-08-2022 Patient encounter procedure Otilia 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 Work Phone: Urology Comment on above: Urgency of urination (Primary Dx); HOOD (stress urinary incontinence, female); Recurrent UTI Start: 11-06-2022 Registered Recurring [facility] Work Phone: [facility]-Physical Therapy Work Phone: Start: 11-02-2022 Non-patient / Non-visit [facility] Work Phone: [facility] Start: 11-02-2022 End: 11-02-2022 Emergency department patient visit [facility] Work Phone: [facility]-Emergency Department Work Phone: Start: 11-02-2022 End: 11-02-2022 ambulatory [facility] Work Phone: [facility] Work Phone: Start: 11-02-2022 End: 11-02-2022 Patient encounter procedure [facility] Work Phone: [facility]-Laboratory Work Phone: Start: 10-30-2022 Registered Recurring [facility] Work Phone: [facility]-Physical Therapy Work Phone: Start: 10-23-2022 Registered Recurring [facility] Work Phone: [facility]-Physical Therapy Work Phone: Start: 10-18-2022 End: 10-30-2022 ambulatory [facility] Work Phone: [facility] Work Phone: Start: 10-18-2022 End: 10-30-2022 Discharged Recurring [facility] Work Phone: [facility]-Nutritional Services Work Phone: Start: 10-18-2022 Registered Recurring [facility] Work Phone: [facility]-Nutritional Services Work Phone: Start: 10-16-2022 End: 10-16-2022 Patient encounter procedure [facility] Work Phone: [facility] Work Phone: Start: 10-12-2022 Registered Recurring [facility] Work Phone: [facility]-Physical Therapy Work Phone: Start: 10-10-2022 End: 10-10-2022 ambulatory [facility] Work Phone: [facility] Work Phone: Start: 10-10-2022 End: 10-10-2022 Patient encounter procedure [facility] Work Phone: [facility]-Cardiovascular Services Work Phone: Start: 09-29-2022 End: 09-29-2022 Patient encounter procedure [facility] Work Phone: [facility] Work Phone: Start: 09-27-2022 Non-patient / Non-visit [facility] Work Phone: [facility] Start: 09-27-2022 End: 09-27-2022 Admission to same day surgery center [facility] Work Phone: [facility]-Surgical Day Care Start: 09-27-2022 End: 09-27-2022 ambulatory [facility] Work Phone: [facility] Work Phone: Start: 09-19-2022 End: 09-29-2022 Discharged Recurring [facility] Work Phone: [facility]-Nutritional Services Work Phone: Start: 09-19-2022 Registered Recurring [facility] Work Phone: [facility]-Nutritional Services Start: 09-18-2022 Non-patient / Non-visit [facility] Work Phone: [facility] Start: 09-18-2022 End: 09-18-2022 ambulatory [facility] Work Phone: [facility] Work Phone: Start: 09-18-2022 End: 09-18-2022 Patient encounter procedure [facility] Work Phone: [facility]-Cardiovascular Services Start: 09-14-2022 End: 09-14-2022 Patient encounter procedure [facility] Work Phone: [facility] Vascular Surgery Start: 09-13-2022 End: 09-13-2022 Patient encounter procedure [facility] Work Phone: [facility]-Laboratory Start: 09-08-2022 End: 09-08-2022 Patient encounter procedure [facility] Work Phone: [facility] Start: 09-01-2022 Non-patient / Non-visit [facility] Work Phone: [facility] Start: 09-01-2022 End: 09-01-2022 Emergency department patient visit [facility] Work Phone: [facility]-Emergency Department Start: 09-01-2022 End: 09-01-2022 Patient encounter procedure [facility] Work Phone: [facility] Clinic Start: 08-28-2022 End: 08-28-2022 Emergency department patient visit [facility] Work Phone: [facility]-Emergency Department Start: 08-23-2022 End: 08-23-2022 ambulatory [facility] Work Phone: [facility] Work Phone: Start: 08-23-2022 End: 08-23-2022 Discharged Recurring [facility] Work Phone: [facility]-Physical Therapy Work Phone: Start: 08-23-2022 Registered Recurring [facility] Work Phone: [facility]-Physical Therapy Start: 08-22-2022 End: 08-30-2022 ambulatory [facility] Work Phone: [facility] Work Phone: Start: 08-22-2022 End: 08-30-2022 Discharged Recurring [facility] Work Phone: [facility]-Nutritional Services Start: 08-22-2022 Registered Recurring [facility] Work Phone: [facility]-Nutritional Services Start: 08-18-2022 End: 08-18-2022 Patient encounter procedure [facility] Work Phone: [facility] Start: 08-11-2022 End: 08-11-2022 Patient encounter procedure [facility] Work Phone: [facility] Start: 07-25-2022 Registered Recurring [facility] Work Phone: [facility]-Physical Therapy Start: 07-18-2022 Registered Recurring [facility] Work Phone: [facility]-Physical Therapy Start: 07-17-2022 End: 07-30-2022 ambulatory [facility] Work Phone: [facility] Work Phone: Start: 07-17-2022 End: 07-30-2022 Discharged Recurring [facility] Work Phone: [facility]-Nutritional Services Start: 07-17-2022 Registered Recurring [facility] ical [facility] Work Phone: [facility]-Nutritional Services Start: 07-12-2022 End: 07-12-2022 ambulatory [facility] Work Phone: [facility] Work Phone: Start: 07-12-2022 End: 07-12-2022 Patient encounter procedure [facility] Work Phone: [facility]-Laboratory Start: 07-06-2022 End: 07-06-2022 Patient encounter procedure [facility] Work Phone: [facility] Start: 06-19-2022 End: 06-30-2022 ambulatory [facility] Work Phone: [facility] Work Phone: Start: 06-19-2022 End: 06-30-2022 Discharged Recurring [facility] Work Phone: [facility]-Nutritional Services Start: 06-07-2022 End: 06-07-2022 Patient encounter procedure [facility] Work Phone: [facility] Start: 05-25-2022 End: 05-25-2022 Patient encounter procedure [facility] Work Phone: [facility] Start: 05-24-2022 End: 05-24-2022 Patient encounter procedure [facility] Work Phone: [facility] Start: 05-19-2022 End: 05-19-2022 ambulatory [facility] Work Phone: [facility] Work Phone: Start: 05-19-2022 End: 05-19-2022 Patient encounter procedure [facility] Work Phone: [facility]-Laboratory Start: 02-10-2022 End: 02-10-2022 Patient encounter procedure [facility] Work Phone: [facility] Start: 01-13-2022 End: 01-13-2022 Emergency department patient visit [facility] Work Phone: [facility]-Emergency Department Start: 10-19-2021 End: 10-19-2021 Patient encounter procedure [facility] Work Phone: [facility] Start: 09-29-2021 End: 09-29-2021 Patient encounter procedure [facility] Work Phone: [phone] [place] [address]-Laboratory Start: 09-27-2021 End: 09-27-2021 Admission to same day surgery center [facility] Work Phone: [phone] [place] [address]-Building Construction Estimator/Special Procedures Start: 09-26-2021 Non-patient / Non-visit [facility] Work Phone: [facility] Start: 09-13-2021 End: 09-13-2021 Patient encounter procedure [facility] Work Phone: [phone] [place] [address] [facility] Start: 09-06-2021 Non-patient / Non-visit [facility] Work Phone: [phone] [place] [address] Start: 09-06-2021 End: 09-06-2021 Patient encounter procedure [facility] Work Phone: [facility]-Cardiovascular Services Start: 08-11-2021 End: 08-11-2021 Patient encounter procedure [facility] Work Phone: [facility] Start: 08-03-2021 End: 08-03-2021 Patient encounter procedure [facility] Work Phone: [facility] Start: 07-14-2021 End: 07-14-2021 Patient encounter procedure [facility] Work Phone: [facility] Start: 02-18-2020 End: 02-18-2020 Patient encounter procedure UNKNOWN PROVIDER Facility:[facility] Start: 12-22-2018 End: 12-22-2018 Emergency department patient visit ANA LOGAN [facility] Start: 12-19-2018 End: 12-19-2018 Emergency department patient visit EDMUNDO WALL [facility] Procedures Date Procedure Procedure Detail Performing Clinician Start: 01-05-2025 Total iron binding c apacity measurement Yvrose Carreon PROCTOLOGIST-C Work Phone: Start: 12-15-2024 Screening mammography Christelle Carreon PROCTOLOGIST-C Work Phone: Start: 10-07-2024 Vitamin D, 25-hydrox y measurement Yvrose Carreon PROCTOLOGIST-C Work Phone: Comment on above: Vitamin D StatusDefi ciency: <20 ng/mL (50nmol/L)Insufficiency: 20-30 ng/mL (50-75 nmol/L)Sufficiency: 30-100 ng/mL (75-250 nmol/L)Toxicity: >100 ng/mL (>250 nmol/L) Start: 09-18-2024 X-ray of knee, four or more views Yvrose Carreon PROCTOLOGIST-C Work Phone: Start: 09-09-2024 MRI of lumbar spine Varsha Carreon PROCTOLOGIST-C Work Phone: Start: 08-14-2024 X-ray of lumbosacral spine Yvrose Carreon PROCTOLOGIST-C Work Phone: Start: 08-14-2024 Plain x-ray of pelvi s and lower extremity Yvrose Carreon PROCTOLOGIST-C Work Phone: Start: 07-15-2024 Plain X-ray of shoulder Yvrose Carreon PROCTOLOGIST-C Work Phone: Start: 04-25-2024 XR knee, 3 views Niurka Carreon PROCTOLOGIST-C Work Phone: Start: 07-25-2023 Fluoroscopic guidance 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 [facility] Work Phone: Start: 07-05-2023 Measurement of occul t blood in stool specimen using immunoassay [facility] Work Phone: Start: 07-05-2023 Nasal Screen MRSA/MSSA [facility] Work Phone: Start: 03-17-2023 CT of upper limb wit hout contrast PROCTOLOGIST-C Yvrose Carreon PROCTOLOGIST Work Phone: Start: 02-28-2023 MRI of joint of lowe r extremity PROCTOLOGIST-C Yvrose Carreon PROCTOLOGIST Work Phone: Start: 02-08-2023 Plain X-ray of shoulder PROCTOLOGIST-C Yvrose Carreon PROCTOLOGIST Work Phone: Start: 12-12-2022 Dual energy X-ray absorptiometry [facility] Work Phone: Start: 11-08-2022 Urnls dip stick/tabl et rgnt auto w/o microscopy Otilia 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 Work Phone: Start: 11-02-2022 CT angiography of ch est with contrast [facility] Work Phone: Start: 10-16-2022 Plain x-ray of pelvi s and lower extremity [facility] Work Phone: Start: 09-27-2022 Procedure on shoulder joint [facility] Work Phone: Start: 09-13-2022 Plain chest X-ray [facility] Work Phone: Start: 05-25-2022 Plain X-ray of shoulder [facility] Work Phone: Start: 05-19-2022 X-ray of cervical spine [facility] Work Phone: Start: 01-13-2022 Pelvis X-ray [facility] Work Phone: Start: 09-06-2021 Cardiovascular stres s test using pharmacologic stress agent [facility] Work Phone: Start: 08-11-2021 Plain chest X-ray [facility] Work Phone: Start: 08-03-2021 Radiologic examinati on of knee [facility] Work Phone: Start: 07-14-2021 End: 07-14-2021 Radiologic examination of knee [facility] Work Phone: Start: 02-18-2020 Antibody screen Comment on above: Order Comment: Speci men Type: BLOOD SPECIMEN Performed By: #### T SCR ####[facility] B[facility] [id number] Start: 12-22-2018 Urinalysis EDMUNDO WALL Comment on above: Result Comment: URIN ALYSIS Performed By: #### [id number] #### [place] [id number] Start: 12-19-2018 Microscopic examinat ion of blood, culture EDMUNDO WALL Comment on above: Performed By: #### [id number] #### [place] [id number] Start: 06-22-2016 Colonoscopy Otilia Coyn er AERONAUTICAL ENGINEERING TECHNOLOGIST.CATTLE RANCHER Work Phone: Start: 06-07-2016 Mammography Otilia Coyn er AERONAUTICAL ENGINEERING TECHNOLOGIST.CATTLE RANCHER Work Phone: Start: 08-05-2013 Lipid 1996 panel - S daksha or Plasma Otilia Coyner AERONAUTICAL ENGINEERING TECHNOLOGIST.CATTLE RANCHER Work Phone: Plan of Treatment Date Care Activity Detail Author Start: 01-26-2025 Ultrasound elastography of liver ABD Limited w/ Elastography [facility] Start: 01-26-2025 Patient encounter procedure Registered Clinical -Ultrasound [facility] Work Phone: Start: 12-29-2024 Non-patient / Non-visit Non-patient / Non-visit -[facility] Work Phone: Start: 11-03-2024 US scan of bladder [facility] Start: 09-18-2024 X-ray of knee, four or more views Knee 4 or More Views [facility] Start: 09-18-2024 XR Knee GE 4 Views [facility] Start: 08-14-2024 Patient referral [facility] Work Phone: Start: 08-14-2024 Plain X-ray of hip Hip uni 4+ views with Pelvis [facility] Start: 08-14-2024 X-ray of lumbosacral spine L/S Spine Min 4 Views [facility] Start: 08-14-2024 XR Hip Views [facility] Start: 08-14-2024 XR Spine Lumbar and Sacrum GE 4 Views [facility] Start: 08-14-2024 Plain x-ray of pelvis and lower extremity HIP, UNI W/ Pelvis 2-3 Views [facility] Start: 08-14-2024 XR Pelvis and Hip Views [facility] Start: 04-02-2024 Advance Directive Discussion Advance Directive Discussion [facility] Start: 12-02-2023 Covid-19 Vaccine () Covid-19 Vaccine () [facility] Start: 12-02-2023 Influenza vaccination Influenza Vaccine (#1) [facility] Start: 07-26-2023 Referral to occupational therapist [facility] Start: 07-26-2023 Referral to service [facility] Start: 07-26-2023 Inhalation therapy procedure [facility] Start: 07-26-2023 Patient discharge [facility] Start: 07-25-2023 Care regimes management [facility] Start: 07-25-2023 Notification of physician [facility] Start: 07-25-2023 [facility] Start: 07-25-2023 Assessment of risk of venous thromboembolism [facility] Start: 07-25-2023 Insertion of catheter into peripheral vein [facility] Start: 07-25-2023 Providing care according to standard [facility] Start: 07-25-2023 [facility] Start: 07-25-2023 Oxygen therapy [facility] Start: 07-25-2023 Following clinical pathway protocol [facility] Start: 07-25-2023 Application of intermittent pneumatic compression device [facility] Start: 07-25-2023 Admission procedure [facility] Start: 07-25-2023 Application of ice collar, cap or bag [facility] Start: 07-25-2023 Assessment of risk of venous thromboembolism [facility] Start: 07-25-2023 Catheterization of vein [facility] Start: 07-25-2023 Deep breathing and coughing exercises [facility] Start: 07-25-2023 Following clinical pathway protocol [facility] Start: 07-25-2023 Incentive spirometry [facility] Start: 07-25-2023 Introduction of urinary catheter [facility] Start: 07-25-2023 Patient education [facility] Start: 07-25-2023 Taking patient vital signs [facility] Start: 07-25-2023 Vital signs measurements [facility] Start: 07-25-2023 [facility] Start: 07-25-2023 Medication education [facility] Start: 05-13-2023 Covid-19 Vaccine () Covid-19 Vaccine () [facility] Start: 04-02-2023 Advance Directive Discussion Advance Directive Discussion [facility] Start: 04-02-2023 Behavioral Health Screening Behavioral Health Screening [facility] Start: 2023 Screening for osteoporosis Bone Density Screening [facility] Start: 03-05-2023 DIABETES SCREEN DIABETES SCREEN [facility] Start: 03-05-2023 Diabetes Screening Diabetes Screening [facility] Start: 12-01-2022 Influenza vaccination INFLUENZA (#1) [facility] Start: 11-13-2022 Patient referral [facility] Work Phone: Start: 11-02-2022 Assay of blood/uric acid ASSAY OF BLOOD/URIC ACID [facility] Start: 11-02-2022 Blood count complete auto&auto difrntl wbc COMPLETE CBC W/AUTO DIFF WBC [facility] Start: 11-02-2022 Collection venous blood venipuncture ROUTINE VENIPUNCTURE [facility] Start: 11-02-2022 Fibrin dgradj products d-dimer quantitative FIBRIN DEGRADATION QUANT [facility] Start: 09-29-2022 Patient referral [facility] Work Phone: Start: 09-27-2022 Anes arthrs humeral h/n strnclav & shoulder nos ANESTH SURGERY OF SHOULDER [facility] Start: 09-27-2022 Arthroscopy shoulder surg debridement limited NORMAN ARTHRS SRG LMTD DBRDMT [facility] Start: 09-27-2022 Arthroscopy shoulder w/coracoacrm ligmnt release NORMAN ARTHRS SRG DECOMPRESSION [facility] Start: 06-28-2023 Application of device [facility] Start: 09-27-2022 Assessment of risk of venous thromboembolism [facility] Start: 09-27-2022 Catheterization of vein [facility] Start: 09-27-2022 Deep breathing and coughing exercises [facility] Start: 09-27-2022 Following clinical pathway protocol [facility] Start: 09-27-2022 Incentive spirometry [facility] Start: 09-27-2022 Introduction of urinary catheter [facility] Start: 09-27-2022 Patient discharge [facility] Start: 09-27-2022 Patient education [facility] Start: 09-27-2022 Taking patient vital signs [facility] Start: 09-27-2022 Vital signs measurements [facility] Start: 09-27-2022 [facility] Start: 09-27-2022 Medication education [facility] Start: 07-06-2022 Patient referral [facility] Work Phone: Start: 04-02-2022 DEPRESSION ASSESSMENT DEPRESSION ASSESSMENT [facility] Start: 06-22-2021 Colonoscopy COLONOSCOPY [facility] Start: 06-22-2021 COLORECTAL CANCER SCREENING COLORECTAL CANCER SCREENING [facility] Start: 06-22-2021 Screening for malignant neoplasm of colon [facility] Start: 02-17-2021 Influenza vaccination LUNG CANCER SCREENING [facility] Start: 02-17-2021 Screening for malignant neoplasm of lung Lung Cancer Screening [facility] Start: 01-14-2019 Shingrix Vaccine (2 of 2) Shingrix Vaccine (2 of 2) [facility] Start: 08-05-2018 Lipid panel Lipid Screening [facility] Start: 08-05-2018 LIPID SCREEN LIPID SCREEN [facility] Start: 2018 RSV Vaccine (1 - 1-dose 60+ series) RSV Vaccine (1 - 1-dose 60+ series) [facility] Start: 2018 RSV Vaccine (1 - Risk 60-74 years 1-dose series) RSV Vaccine (1 - Risk 60-74 years 1-dose series) [facility] Start: 06-07-2017 Mammography MAMMOGRAM [facility] Start: 06-07-2017 Screening for malignant neoplasm of breast Mammogram Screening [facility] Start: 2008 SHINGRIX VACCINE (1 of 2) SHINGRIX VACCINE (1 of 2) [facility] Start: 2003 COLOGUARD (FIT-DNA) COLOGUARD (FIT-DNA) [facility] Start: [address] COLONOGRAPHY [facility] Start: 2003 FECAL OCCULT BLOOD FECAL OCCULT BLOOD [facility] Start: 2003 Screening for malignant neoplasm of colon [facility] Start: 2003 SIGMOIDOSCOPY SIGMOIDOSCOPY [facility] Start: [address] [facility] Start: 1976 ANNUAL PCP TEAM CHRONIC DISEASE VISIT ANNUAL PCP TEAM CHRONIC DISEASE VISIT [facility] Start: 1976 Anxiety Screening Anxiety Screening [facility] Start: 1976 BP CONTROLLED (<130/80) BP CONTROLLED (<130/80) [facility] Start: 1976 Depression Screening Depression Screening [facility] Start: 1976 HIV SCREENING HIV SCREENING [facility] Start: 1976 HIV screening HIV Screening [facility] Start: 1964 PNEUMOCOCCAL (1 - PCV) PNEUMOCOCCAL (1 - PCV) [place] BLADDER SCAN BLADDER SCAN Procedures Routine Urgency of urination Ordered: 11/08/2022 [facility] Work Phone: Comment on above: Ordered: 11/08/2022 Electrocardiographic procedure [facility] MR Lower Extremity Joint [facility] Patient Education [facility] Work Phone: Patient referral [facility] Work Phone: XR Knee 3 Views [facility] Immunizations Immunization Date Immunization Notes Care Provider Nisa franco 01-14-2024 influenza, high dose seasonal, preservative-free Yvrose [facility]ON[facility] Work Phone: [facility] 04-20-2023 RSV Adult BiValent (Abrysvo) [facility] Work Phone: [facility] 01-10-2023 Covid (Spikevax) [facility] Work Phone: [facility] 12-08-2022 influenza, injectabl e, quadrivalent, preservative free [facility] Work Phone: [facility] 12-08-2022 Pneumococcal Vaccine PCV20 (Prevnar 20) [facility] Work Phone: [facility] 12-08-2022 influenza virus vaccine, unspecified formulation Otilia 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 Work Phone: [facility] 12-14-2021 Covid Pfizer Bivalen t Booster [facility] Work Phone: [facility] 12-14-2021 influenza, injectabl e, quadrivalent, preservative free [facility] Work Phone: [phone] [place] [address] 03-30-2021 Covid (Pfizer) [facility] Work Phone: [phone] [place] [address] 02-22-2021 influenza, injectabl e, quadrivalent, preservative free [facility] Work Phone: [phone] [place] [address] 07-01-2020 Covid (Pfizer) [facility] Work Phone: [phone] [place] [address] 06-10-2020 Covid (Pfizer) [facility] Work Phone: [phone] [place] [address] 12-02-2019 Influenza virus vaccine [facility] Work Phone: [phone] [place] [address] 11-19-2018 zoster vaccine recombinant [facility] Work Phone: [phone] [place] [address] 02-12-2017 influenza, injectabl e, quadrivalent, preservative free [facility] Work Phone: [facility] 02-12-2017 influenza, seasonal, injectable [facility] Work Phone: [phone] [place] [address] 02-12-2017 Seasonal, quadrivale nt, recombinant, injectable influenza vaccine, preservative free [facility] Work Phone: [facility] 12-24-2015 influenza, injectabl e, quadrivalent, preservative free [facility] Work Phone: [facility] 12-24-2015 influenza, seasonal, injectable Otilia 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 Work Phone: [facility] Work Phone: 01-18-2015 influenza virus vaccine, unspecified formulation Otilia 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 Work Phone: [facility] 01-18-2015 influenza, injectabl e, quadrivalent, preservative free [facility] Work Phone: [facility] 01-20-2014 influenza, injectabl e, quadrivalent, preservative free [facility] Work Phone: [facility] 01-20-2014 influenza, seasonal, injectable Otilia 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 Work Phone: [facility] Payers Date Payer Category Payer Private Health Insurance [id number] 2024 Self-pay [id number] 2023 Medicare [id number] 2023 Medicare HUMANA MEDICARE HUMANA GOLD PLUS [id number] 2023- [phone] [place] [phone] [facility] [id number] 2023 Medicare (Managed Care) HUMANA G OLD PLUS Member Subscriber Plan / Payer (Effective 2023-Present) Name: Daphney Benson Relation to Subscriber: Self Name: Daphney Benson Payer ID: [id number] (NAIC) Group ID: Not on file Type: HMO Address: [address] [place], [place] [address] [id number] 05-03-2022 Medicaid [facility] MEDICAID [id number] 05/03/2022-Present [phone] [address] [place] [address] Medicaid [id number] 05-03-2022 Unknown [id number] 02-18-2020 Unknown [id number] 1960 Unknown [id number] 2.16.840.1.422763.3.579.2. 651 1960 Unknown [id number] 2.16.840.1.427413.3.579.2. 651 1960 Unknown [id number] 2.16.840.1.238336.3.579.2. 732 Medicare MEDICARE PART A B [id number] Private Health Insurance [id number] Unknown [id number] Unknown [id number] 2.16.840.1.699188.3.579.2. 462 Unknown [id number] 2.16.840.1.925455.3.579.2. 462 Unknown [id number] 2.16.840.1.906522.3.579.2. 462 Unknown [id number] 2.16.840.1.489868.3.579.2. 462 Unknown [id number] 2.16.840.1.097439.3.579.2. 462 Unknown [id number] 2.16.840.1.901769.3.579.2. 462 Unknown [id number] 2.16.840.1.446175.3.579.2. 462 Unknown [id number] 2.16.840.1.853980.3.579.2. 462 Unknown [id number] 2.16840.1.534906.3.579.2. 462 Unknown [id number] 2.16840.1.454194.3.579.2. 462 Unknown [id number] 2.16.840.1.766751.3.579.2. 462 Unknown [id number] 2.16840.1.657534.3.579.2. 462 Unknown [id number] 2.840.1.809795.3.579.2. 462 Unknown [id number] 2.840.1.625053.3.579.2. 462 Unknown [id number] 2.840.1.168374.3.579.2. 462 Unknown [id number] 2.840.1.447761.3.579.2. 462 Unknown [id number] 2.840.1.247837.3.579.2. 462 Unknown [id number] 2.840.1.994978.3.579.2. 462 Unknown [id number] 2.840.1.027460.3.579.2. 462 Unknown [id number] 2.840.1.649215.3.579.2. 462 Unknown [id number] 2.840.1.100781.3.579.2. 462 Unknown [id number] 2.840.1.368483.3.579.2. 462 Unknown [id number] 2.840.1.856110.3.579.2. 462 Unknown [id number] 2.840.1.250905.3.579.2. 462 Unknown [id number] 2.840.1.984709.3.579.2. 462 Unknown [id number] 2.840.1.030951.3.579.2. 462 Unknown [id number] 2.840.1.652986.3.579.2. 462 Unknown [id number] 2.16.840.1.138612.3.579.2. 462 Unknown [id number] 2.16.840.1.531473.3.579.2. 462 Unknown [id number] 2.16.840.1.963192.3.579.2. 462 Unknown [id number] 2.16.840.1.044523.3.579.2. 462 Unknown [id number] 2.16.840.1.504184.3.579.2. 462 Unknown [id number] 2.16.840.1.197012.3.579.2. 462 Unknown [id number] 2.16.840.1.127957.3.579.2. 462 Unknown [id number] 2.16.840.1.219468.3.579.2. 462 Unknown [id number] 2.16.840.1.765907.3.579.2. 462 Social History Date Type Detail Facility Start: 08-11-2021 End: 07-25-2023 Tobacco smoking status [facility] Unknown if ever smoked [facility] Start: 12-18-2018 None [facility] Start: 12-18-2018 Alone [facility] Start: 08-15-2020 Cigarettes [facility] Start: 1960 Sex Assigned At Female [facility] Start: 11-08-2022 End: 10-28-2024 Tobacco smoking status ILIS Ex-smoker [facility] Start: 06-16-1970 End: 06-16-2010 History of tobacco use Current smoker [facility] Start: 06-16-1970 End: 06-16-2010 History of tobacco use Cigarette Smoker [facility] Start: 03-06-2020 End: 11-08-2022 Cigarettes smoked current (pack per day) - Reported 1 [facility] Work Phone: Start: 11-08-2022 Tobacco use and exposure Smokeless tobacco non-user [facility] Start: 11-08-2022 End: 02-09-2023 Alcohol intake Current drinker of alcohol (finding) [facility] Start: 03-06-2020 End: 11-08-2022 Tobacco use panel [facility] Work Phone: How hard is it for you to pay for the very basics like food, housing, medical care, and heating Not hard at all [facility] Work Phone: (I/We) worried whether (my/our) food would run out before (I/we) got money to buy more. Never true [facility] Work Phone: Start: 07-31-2013 [facility] Start: 1960 Sex Assigned At Not on file [facility] Start: 08-13-2024 End: 09-18-2024 Tobacco smoking status NHIS Smokes tobacco daily (finding) [facility] NEGATED: Highlighted row [facility] Medical Equipment Procedure Code Equipment Code Equipment Origin al Text Equipment Identifier Dates Cj Bn Void 3ml Ca Phos Fbr - [id number] Start: 02-19-2020 Plate Lcp Combi Contour Stainless Steel 102mm Bone 6 Hole Limit Contact Low - [id number] Start: 02-19-2020 Screw Lcp 3.5mm Stainless Steel 50mm Bone Locking Self Tapping T15 Star - [id number] Start: 02-19-2020 Screw Lc-Dcp Dcp 3.5mm 6mm Full Thread Stainless Steel 36mm Bone Self - [id number] Start: 02-19-2020 Screw Lcp 3.5mm Full Thread Stainless Steel 60mm Bone Stardrive Recess Self - [id number] Start: 02-19-2020 Screw Lcp 3.5mm T15 Full Thread Stainless Steel 65mm Bone Fix Angle Lock - [id number] Start: 02-19-2020 Screw Lcp 3.5mm T15 Full Thread Stainless Steel 70mm Bone Fix Angle Lock - [id number] _imp Start: 02-19-2020 Screw Dcp Lc-Dcp 3.5mm 6mm Full Thread Hexagon Stainless Steel 44mm Bone - [id number] _imp Start: 02-19-2020 SCREW FDA Start: 07-25-2023 TORNIER HUMERAL STEM FDA Star t: 07-25-2023 TORNIER REVERSED INSERT +0MM FDA Start: 07-25-2023 TORNIER STANDARD GLENOSPHERE FDA Start: 07-25-2023 Reverse shoulder prosthesis base plate [id number] FDA Start: 07-25-2023 SCREW FDA Start: 07-25-2023 TORNIER HUMERAL STEM FDA Star t: 07-25-2023 TORNIER REVERSED INSERT +0MM FDA Start: 07-25-2023 TORNIER STANDARD GLENOSPHERE FDA Start: 07-25-2023 SCREW FDA Start: 07-25-2023 TORNIER HUMERAL STEM FDA Star t: 07-25-2023 TORNIER REVERSED INSERT +0MM FDA Start: 07-25-2023 TORNIER STANDARD GLENOSPHERE FDA Start: 07-25-2023 SCREW FDA Start: 07-25-2023 TORNIER HUMERAL STEM FDA Star t: 07-25-2023 TORNIER REVERSED INSERT +0MM FDA Start: 07-25-2023 TORNIER STANDARD GLENOSPHERE FDA Start: 07-25-2023 SCREW FDA Start: 07-25-2023 TORNIER HUMERAL STEM FDA Star t: 07-25-2023 TORNIER REVERSED INSERT +0MM FDA Start: 07-25-2023 TORNIER STANDARD GLENOSPHERE FDA Start: 07-25-2023 SCREW FDA Start: 07-25-2023 TORNIER HUMERAL STEM FDA Star t: 07-25-2023 TORNIER REVERSED INSERT +0MM FDA Start: 07-25-2023 TORNIER STANDARD GLENOSPHERE FDA Start: 07-25-2023 SCREW FDA Start: 07-25-2023 TORNIER HUMERAL STEM FDA Star t: 07-25-2023 TORNIER REVERSED INSERT +0MM FDA Start: 07-25-2023 TORNIER STANDARD GLENOSPHERE FDA Start: 07-25-2023 SCREW FDA Start: 07-25-2023 TORNIER HUMERAL STEM FDA Star t: 07-25-2023 TORNIER REVERSED INSERT +0MM FDA Start: 07-25-2023 TORNIER STANDARD GLENOSPHERE FDA Start: 07-25-2023 SCREW FDA Start: 07-25-2023 TORNIER HUMERAL STEM FDA Star t: 07-25-2023 TORNIER REVERSED INSERT +0MM FDA Start: 07-25-2023 TORNIER STANDARD GLENOSPHERE FDA Start: 07-25-2023 SCREW FDA Start: 07-25-2023 TORNIER HUMERAL STEM FDA Star t: 07-25-2023 TORNIER REVERSED INSERT +0MM FDA Start: 07-25-2023 TORNIER STANDARD GLENOSPHERE FDA Start: 07-25-2023 SCREW FDA Start: 07-25-2023 TORNIER HUMERAL STEM FDA Star t: 07-25-2023 TORNIER REVERSED INSERT +0MM FDA Start: 07-25-2023 TORNIER STANDARD GLENOSPHERE FDA Start: 07-25-2023 SCREW FDA Start: 07-25-2023 TORNIER HUMERAL STEM FDA Star t: 07-25-2023 TORNIER REVERSED INSERT +0MM FDA Start: 07-25-2023 TORNIER STANDARD GLENOSPHERE FDA Start: 07-25-2023 SCREW FDA Start: 07-25-2023 TORNIER HUMERAL STEM FDA Star t: 07-25-2023 TORNIER REVERSED INSERT +0MM FDA Start: 07-25-2023 TORNIER STANDARD GLENOSPHERE FDA Start: 07-25-2023 SCREW FDA Start: 07-25-2023 TORNIER HUMERAL STEM FDA Star t: 07-25-2023 TORNIER REVERSED INSERT +0MM FDA Start: 07-25-2023 TORNIER STANDARD GLENOSPHERE FDA Start: 07-25-2023 SCREW FDA Start: 07-25-2023 TORNIER HUMERAL STEM FDA Star t: 07-25-2023 TORNIER REVERSED INSERT +0MM FDA Start: 07-25-2023 TORNIER STANDARD GLENOSPHERE FDA Start: 07-25-2023 SCREW FDA Start: 07-25-2023 TORNIER HUMERAL STEM FDA Star t: 07-25-2023 TORNIER REVERSED INSERT +0MM FDA Start: 07-25-2023 TORNIER STANDARD GLENOSPHERE FDA Start: 07-25-2023 SCREW FDA Start: 07-25-2023 TORNIER HUMERAL STEM FDA Star t: 07-25-2023 TORNIER REVERSED INSERT +0MM FDA Start: 07-25-2023 TORNIER STANDARD GLENOSPHERE FDA Start: 07-25-2023 Goals Date Patient Goal Desired Activity /State Functional Status Date Assessment Result Facility 07-26-2023 Functional status Chair [facility] Work Phone: 02-24-2020 Are you deaf, or do you have serious difficulty hearing No 02/24/2020 1:00 PM Jill Adrian RN No [facility] 02-24-2020 Are you blind, or do you have serious difficulty seeing, even when wearing glasses No 02/24/2020 1:00 PM Jill Adrian RN No [facility] 02-24-2020 Do you have serious difficulty walking or climbing stairs Yes 02/24/2020 1:00 PM Jill Adrian, BENNY Yes [facility] 02-24-2020 Do you have difficul ty dressing or bathing Yes 02/24/2020 1:00 PM Jill Adrian, BENNY Yes [facility] 02-24-2020 Because of a physica l, mental, or emotional condition, do you have difficulty doing errands alone such as visiting a physician's office or shopping Yes 02/24/2020 1:00 PM Jill Adrian RN Yes [facility] Mental Status Date Assessment Result Facility 07-26-2023 Cognitive function Level Of Cons ciousness Awake;Alert;Appropriate;Fol lows Commands [facility] Work Phone: 07-26-2023 Cognitive function Voice/Name [facility] Work Phone: 11-02-2022 Cognitive function Level Of Cons ciousness Awake;Alert;Appropriate;Fol lows Commands [facility] Work Phone: 09-27-2022 Cognitive function Level Of Cons ciousness Awake;Appropriate;Follows Commands;Drowsy [facility] Work Phone: 09-01-2022 Cognitive function Level Of Cons ciousness Awake;Alert;Appropriate;Fol lows Commands [facility] Work Phone: 08-28-2022 Cognitive function Level Of Cons ciousness Awake;Alert;Appropriate;Fol lows Commands [facility] Work Phone: 02-24-2020 Because of a physica l, mental, or emotional condition, do you have serious difficulty concentrating, remembering, or making decisions No 02/24/2020 1:00 PM Jill Adrian RN No [facility] Clinical Notes 02-20-2020 to 01-16-2025 Note Date & Type Note Facility 01-16-2025 Progress note [facility] 12-08-2024 Discharge summary Note Date/Time December 08, 2024 2:08pm [facility] Physical Therapy [facility] [place] [address] / REHABILITATION SERVICES DISCHARGE SUMMARY MR#: [id number] Acct: [id number] Name: DAPHNEY BENSON Rep #: [id number] : 1960 64 From: Fabienne Tompkins Referring Dr.: SENTHIL Amaral Status: REG [facility] Insurance: [employer] INSURANCE Patient Information Patient Information: DAPHNEY BENSON was seen in my office for initial evaluation on 08/26/24. The following Plan of Care was established for this patient: POC Established Initial Frequency: 2x /Week Initial Duration: 2 Months Anticipated Interventions Patient/Client Instruction: Educate patient on: Condition and Plan of Care For the Purpose of:: To decrease pain, To increase ROM, To improve nutrient delivery to tissue, To improve muscle performance and motor function, To improveability to perform ADL's, To increase tolerance to activity/condition/position, To improve performance and independence with ADL's, To decrease level of supervision to perform tasks, To improve ability of physical actions for home/community/work/leisure, To improve gait and locomotor functions, To improvehealth of tissue, To decrease soft tissue restriction, To increase flexibility/ROM and To improve endurance Therapeutic Exercise to Include: Strength training, Postural training, Flexibilty training, Gait and locomotor training, Active ROM and Dynamic Lumbar Stabilization For the Purpose of:: To decrease pain, To decrease swelling/inflammation, To increase ROM, To improve nutrient delivery to tissue, To improve muscle performance and motor function, To improve ability to perform ADL's, To increasetolerance to activity/condition/position, To improve ability of physical actionsfor home/community/work/leisure, To improve gait and locomotor functions, To improve health of tissue, To decrease soft tissue restriction and To increase flexibility/ROM Functional Training to Include: Gait training For the Purpose of:: To improve gait and locomotor functions Manual Therapy Techniques to Include: Passive ROM For the Purpose of:: To increase ROM and To improve muscle performance and motorfunction Last Seen Last Seen: This patient was last seen in our office 09/19/24. Pertinent comments regardingtheir Physical therapy will appear below: DC PT At this point I will be discontinuing this patient from physical therapy. I would be happy to see this patient again in the future if found appropriate by the physician. Thank you! Fabienne Brambila, DENISE Balance/Gait/Functional tests Balance/Special Test Scores Oswestry Low Back Score: 17 <Electronically signed by Fabienne Brambila MPT> 12/08/24 1408 CC: SENTHIL Amaral; [facility] SENTHIL Carreon ~ Signed [facility] Work Phone: 1(326) 954-799009-08-2025 Discharge summary [facility] Physical Therapy [address] [place] [address] / REHABILITATION SERVICES DISCHARGE SUMMARY MR#: [id number] Acct: [id number] Name: DAPHNEY BENSON Rep #: [id number] : 1960 64 From: Fabienne Brambila MP T Referring Dr.: SENTHIL Amaral Status: REG RCR Insurance: [employer]URANCE Patient Information Patient Information: DAPHNEY BENSON was seen in my office for initial evaluation on 08/26/24. The following Plan of Care was established for this patient: POC Established Initial Frequency: 2x /Week Initial Duration: 2 Months Anticipated Interventions Patient/Client Instruction: Educate patient on: Condition and Plan of Care For the Purpose of:: To decrease pain, To increase ROM, To improve nutrient delivery to tissue, To improve muscle performance and motor function, To improveability to perform ADL's, To increase tolerance to activity/condition/position, To improve performance and independence with ADL's, To decreaselevel of supervision to perform tasks, To improve ability of physical actions for home/community/work/leisure, To improve gait and locomotor functions, To improvehealth of tissue, To decrease soft tissue restriction, To increase flexibility/ROM and To improve endurance Therapeutic Exercise to Include: Strength training, Postural training, Flexibilty training, Gait and locomotor training, Active ROM and Dynamic Lumbar Stabilization For the Purpose of:: To decrease pain, To decrease swelling/inflammation, To increase ROM, To improve nutrient delivery to tissue, To improve muscle performance and motor function, To improve abilityto perform ADL's, To increasetolerance to activity/condition/position, To improve ability of physical actionsfor home/community/work/leisure, To improve gait and locomotor functions, To improve health of tissue, To decrease soft tissue restriction and To increase flexibility/ROM Functional Training to Include: Gait training For the Purpose of:: To improve gait and locomotor functions Manual Therapy Techniques to Include: Passive ROM For the Purpose of:: To increase ROM and To improve muscle performance and motorfunction Last Seen Last Seen: This patient was last seen in our office 09/19/24. Pertinent comments regardingtheir Physical therapy will appear below: DC PT At this point I will be discontinuing this patient from physical therapy. I would be happy to see this patient again in the future if found appropriate by the physician. Thank you! Fabienne Brambila, MPT Balance/Gait/Functional tests Balance/Special Test Scores Oswestry Low Back Score: 17 12/08/24 1408 CC: SENTHIL Amaral; [facility] SENTHIL Carreon ~ Signed [facility]07-03-2025 Evaluation note* Diagnosis Onset Date Resolution Status Admit Date Localized osteoarthritis of left knee acute October 02, 2024 9 :53am Right knee DJD acute October 02, 2024 9:53am Localized osteoarthritis of left knee acute October 09, 2024 9:51am Right knee DJD acute October 09, 2024 9:51am Localized osteoarthritis of left knee acute October 16, 2024 9:05am Right knee DJD acute October 16, 2024 9:05am Bacteriuria acute November 03, 2 025 9:47am Mixed incontinence acute November 03, 2024 9:47am Nocturia acute November 03 9:47am Overactive bladder acute November 03, 2024 9:47am Atherosclerotic heart diseas e of [place] coronary artery without angina pectoris acute January 07 9:20am Essential hypertension acute 2024 9:20am Hyperlipidemia chronic December 9:20am Localized osteoarthritis of left knee acute January 16 9:33am Obesity, class 3 acute January 16, 2025 9:33am Right knee DJD acute January 162024 9:33am [facility] Work Phone: 1(183) 503-953906-19-2025 Evaluation note* Diagnosis Onset Date Resolution Status Admit Date Body mass index [BMI] 40.0-4 4.9, adult acute September 18, 2024 9:37am Localized osteoarthritis of left knee acute September 18, 2024 9:37am Obesity, class 3 acute August 9:37am Right knee DJD acute September 18, 2024 9:37am SI (sacroiliac) joint dysfunction acute September 18, 2024 9:37am Localized osteoarthritis of left knee acute October 02, 2024 9 :53am Right knee DJD acute October 02, 2024 9:53am Localized osteoarthritis of left knee acute October 09, 2024 9:51am Right knee DJD acute October 09, 2024 9:51am Localized osteoarthritis of left knee acute October 16, 2024 9:05am Right knee DJD acute October 16, 2024 9:05am Bacteriuria acute November 03, 9:47am Mixed incontinence acute November 03, 2024 9:47am Nocturia acute November 03 9:47am Overactive bladder acute November 03, 2024 9:47am [facility] Work Phone: 1([phone]) 751-628606-19-2025 Evaluation note* Diagnosis Onset Date Resolution Status Admit Date Body mass index [BMI] 40.0-4 4.9, adult acute September 18, 2024 9:37am Localized osteoarthritis of left knee acute September 18, 2024 9:37am Obesity, class 3 acute August 9:37am Right knee DJD acute September 18, 2024 9:37am SI (sacroiliac) joint dysfunction acute September 18, 2024 9:37am Localized osteoarthritis of left knee acute October 02, 2024 9 :53am Right knee DJD acute October 02, 2024 9:53am Localized osteoarthritis of left knee acute October 09, 2024 9:51am Right knee DJD acute October 09, 2024 9:51am Localized osteoarthritis of left knee acute October 16, 2024 9:05am Right knee DJD acute October 16, 2024 9:05am Bacteriuria acute November 03, 025 9:47am Mixed incontinence acute November 03, 2024 9:47am Nocturia acute November 03 9:47am Overactive bladder acute November 03, 2024 9:47am Atherosclerotic heart diseas e of [place] coronary artery without angina pectoris acute January 07 9:20am Essential hypertension acute Oc 2024 9:20am Hyperlipidemia chronic December 9:20am [facility] Work Phone: 1(876) 536-595305-15-2025 Evaluation note* Diagnosis Onset Date Resolution Status Admit Date Left knee DJD acute August 14, 025 9:26am Primary localized osteoarthr itis of left hip acute August 14, 2024 9 :26am Radicular low back pain acute 2024 9:26am Sacral pressure sore acute August 14, 2024 9:26am SI (sacroiliac) joint dysfunction acute August 14, 2024 9 :26am Left knee DJD acute August 22, 025 10:14am Localized osteoarthritis of left knee acute August 22, 2024 1 0:14am Body mass index [BMI] 40.0-4 4.9, adult acute September 18, 2024 9:37am Localized osteoarthritis of left knee acute September 18, 2024 9:37am Obesity, class 3 acute August 9:37am Right knee DJD acute September 18, 2024 9:37am SI (sacroiliac) joint dysfunction acute September 18, 2024 9:37am Localized osteoarthritis of left knee acute October 02, 2024 9 :53am Right knee DJD acute October 02, 2024 9:53am Localized osteoarthritis of left knee acute October 09, 2024 9:51am Right knee DJD acute October 09, 2024 9:51am Localized osteoarthritis of left knee acute October 16, 2024 9:05am Right knee DJD acute October 16, 2024 9:05am Bacteriuria acute November 03, 025 9:47am Mixed incontinence acute November 03, 2024 9:47am Nocturia acute November 03, 9:47am Overactive bladder acute November 03, 2024 9:47am [facility] Work Phone: 1([phone]) 603-442204-15-2025 Evaluation note* Diagnosis Onset Date Resolution Status Admit Date Arthritis of left shoulder region ac [place] July 15, 2024 10:43am Left knee DJD acute August 14, 025 9:26am Primary localized osteoarthr itis of left hip acute August 14, 2024 9 :26am Radicular low back pain acute M ay 2024 9:26am Sacral pressure sore acute August 14, 2024 9:26am SI (sacroiliac) joint dysfunction ac [place] August 14, 2024 9:26am Left knee DJD acute August 22, 025 10:14am Localized osteoarthritis of left knee acute August 22, 2024 1 0:14am [facility] Work Phone: 1([phone]) 766-753704-15-2025 Evaluation note* Diagnosis Onset Date Resolution Status Admit Date Arthritis of left shoulder region ac [place] July 15, 2024 10:43am Left knee DJD acute August 14, 025 9:26am Primary localized osteoarthr itis of left hip acute August 14, 2024 9 :26am Radicular low back pain acute M ay 2024 9:26am Sacral pressure sore acute August 14, 2024 9:26am SI (sacroiliac) joint dysfunction [place] August 14, 2024 9:26am Left knee DJD acute August 22, 025 10:14am Localized osteoarthritis of left knee acute August 22, 2024 1 0:14am Right knee DJD acute September 18, 2024 9:37am [facility] Work Phone: 1([phone]) 814-791704-15-2025 Evaluation note* Diagnosis Onset Date Resolution Status Admit Date Arthritis of left shoulder region ac [place] July 15, 2024 10:43am Left knee DJD acute August 14 025 9:26am Primary localized osteoarthr itis of left hip acute August 14, 2024 9 :26am Radicular low back pain acute M 2024 9:26am Sacral pressure sore acute August 14, 2024 9:26am SI (sacroiliac) joint dysfunction ac [place] August 14, 2024 9:26am Left knee DJD acute August 22 10:14am Localized osteoarthritis of left knee acute August 22, 2024 1 0:14am Body mass index [BMI] 40.0-4 4.9, adult acute September 18, 2024 9:37am Localized osteoarthritis of left knee acute September 18, 2024 9:37am Obesity, class 3 acute August 9:37am Right knee DJD acute September 18, 2024 9:37am SI (sacroiliac) joint dysfunction [facility] September 18, 2024 9:37am [facility] Work Phone: 1([phone]) 174-285104-15-2025 Evaluation note* Diagnosis Onset Date Resolution Status Admit Date Arthritis of left shoulder region ac [place] July 15, 2024 10:43am Left knee DJD acute August 14 025 9:26am Primary localized osteoarthr itis of left hip acute August 14, 2024 9 :26am Radicular low back pain acute [facility] 2024 9:26am Sacral pressure sore acute August 14, 2024 9:26am SI (sacroiliac) joint dysfunction [facility] August 14, 2024 9:26am Left knee DJD acute August 22 025 10:14am Localized osteoarthritis of left knee acute August 22, 2024 1 0:14am Body mass index [BMI] 40.0-4 4.9, adult acute September 18, 2024 9:37am Localized osteoarthritis of left knee acute September 18, 2024 9:37am Obesity, class 3 acute August 9:37am Right knee DJD acute September 18, 2024 9:37am SI (sacroiliac) joint dysfunction ac [place] September 18, 2024 9:37am Localized osteoarthritis of left knee acute October 02, 2024 9 :53am Right knee DJD acute October 02, 2024 9:53am [facility] Work Phone: 1([phone] 425-371604-15-2025 Evaluation note* Diagnosis Onset Date Resolution Status Admit Date Arthritis of left shoulder region ac [place] July 15, 2024 10:43am Left knee DJD acute August 14 025 9:26am Primary localized osteoarthr itis of left hip acute August 14, 2024 9 :26am Radicular low back pain acute M ay 2024 9:26am Sacral pressure sore acute August 14, 2024 9:26am SI (sacroiliac) joint dysfunction ac [place] August 14, 2024 9:26am Left knee DJD acute August 22 025 10:14am Localized osteoarthritis of left knee acute August 22, 2024 1 0:14am Body mass index [BMI] 40.0-4 4.9, adult acute September 18, 2024 9:37am Localized osteoarthritis of left knee acute September 18, 2024 9:37am Obesity, class 3 acute August 9:37am Right knee DJD acute September 18, 2024 9:37am SI (sacroiliac) joint dysfunction [place] September 18, 2024 9:37am Localized osteoarthritis of left knee acute October 02, 2024 9 :53am Right knee DJD acute October 02, 2024 9:53am Localized osteoarthritis of left knee acute October 09, 2024 9:51am Right knee DJD acute October 09, 2024 9:51am [facility] Work Phone: 1(442) 373-588204-15-2025 Evaluation note* Diagnosis Onset Date Resolution Status Admit Date Arthritis of left shoulder region ac [place] July 15, 2024 10:43am Left knee DJD acute August 14, 025 9:26am Primary localized osteoarthr itis of left hip acute August 14, 2024 9 :26am Radicular low back pain acute M ay 2024 9:26am Sacral pressure sore acute August 14, 2024 9:26am SI (sacroiliac) joint dysfunction ac [place] August 14, 2024 9:26am Left knee DJD acute August 22 10:14am Localized osteoarthritis of left knee acute August 22, 2024 1 0:14am Body mass index [BMI] 40.0-4 4.9, adult acute September 18, 2024 9:37am Localized osteoarthritis of left knee acute September 18, 2024 9:37am Obesity, class 3 acute August 9:37am Right knee DJD acute September 18, 2024 9:37am SI (sacroiliac) joint dysfunction ac [place] September 18, 2024 9:37am Localized osteoarthritis of left knee acute October 02, 2024 9 :53am Right knee DJD acute October 02, 2024 9:53am Localized osteoarthritis of left knee acute October 09, 2024 9:51am Right knee DJD acute October 09, 2024 9:51am Localized osteoarthritis of left knee acute October 16, 2024 9:05am Right knee DJD acute October 16, 2024 9:05am [facility] Work Phone: 1([phone]) 358-253204-15-2025 Evaluation note* Diagnosis Onset Date Resolution Status Admit Date Arthritis of left shoulder region acute July 15, 2024 10:43am Left knee DJD acute August 14 9:26am Primary localized osteoarthr itis of left hip acute August 14, 2024 9 :26am Radicular low back pain acute M 2024 9:26am Sacral pressure sore acute August 14, 2024 9:26am SI (sacroiliac) joint dysfunction acute August 14, 2024 9 :26am Left knee DJD acute August 22 10:14am Localized osteoarthritis of left knee acute August 22, 2024 1 0:14am Body mass index [BMI] 40.0-4 4.9, adult acute September 18, 2024 9:37am Localized osteoarthritis of left knee acute September 18, 2024 9:37am Obesity, class 3 acute August 9:37am Right knee DJD acute September 18, 2024 9:37am SI (sacroiliac) joint dysfunction acute September 18, 2024 9:37am Localized osteoarthritis of left knee acute October 02, 2024 9 :53am Right knee DJD acute October 02, 2024 9:53am Localized osteoarthritis of left knee acute October 09, 2024 9:51am Right knee DJD acute October 09, 2024 9:51am Localized osteoarthritis of left knee acute October 16, 2024 9:05am Right knee DJD acute October 16, 2024 9:05am Nocturia acute November 03 9:47am Overactive bladder acute November 03, 2024 9:47am [facility] Work Phone: [phone]) 839-322004-08-2025 Telephone encounter Note* Telephone Encounter - Melita Beach RN - 07/08/2024 12:41 PM EDT Patient given supply in April to make appt. Sending message again. [facility]04-08-2025 Miscellaneous Notes* Telephone Encounter - Melita Beach RN - 07/08/2024 12:41 PM EDT Patient given supply in April to make appt. Sending message again. [facility] Evaluation note* Diagnosis Onset Date Resolution Status Admit Date Strain of left knee acute 2024 11:20am Arthritis of left shoulder region acute July 15, 2024 10:43am Radicular low back pain acute 2024 9:26am Sacral pressure sore acute August 14, 2024 9:26am [facility] Work Phone: 1([phone]) 798-363801-13-2025 Telephone encounter Note* Telephone Encounter - Melita Beach RN - 04/14/2024 8:47 AM EST Advised Overdue for appt. Sent My Chart. Will you fill? [facility]01-13-2025 Miscellaneous Notes* Telephone Encounter - Melita Beach RN - 04/14/2024 8:47 AM EST Advised Overdue for appt. Sent My Chart. Will you fill? [facility]24 Progress note Author Ingris Sam [facility] July 26, 2023 10:43am Note Date/Time July 26, 2023 10: 43am [facility] Medical Records Department [address] [place] [address] Progress Note - Hospitalist 07/26/23 1042 MR#: [id number] Acct: [id number] Name: DAPHNEY BENSON Rep #:[id number] : 1960 63 From: Ingris Sam DO PCP: [facility] St atus:ADM KENNEDY Location: [place] [address] Hospitalist Note Patient is clinically stable. Ambulatory pulse ox was done and she required no oxygen today. I do highly suspect her oxygen requirement last evening was related to obstructive sleep apnea and postoperative sedation/pain medication. Her labs appear to be stable and from my standpoint she is safe for discharge home. 07/26/231042 <Electronically signed by Ingris Sam DO> Cosigner Signature (if applicable): CC: ~ Signed [facility] Work Phone: 1(149) 800-599204-25-2024 Progress note [address]io [address] [facility] July 26, 2023 8:59am Note Date/Time July 26, 2023 8:5 9am [facility] Medical Records Department [address] [place] [address] Progress Note - Orthopedic 07/26/23 0857 MR#: [id number] Acct: [id number] Name: DAPHNEY BENSON Rep #:[id number] : 1960 63 From: Silverio Street MD PCP: [facility] St atus:ADM KENNEDY Location: [place] [id number] Subjective Subjective POD 1 L RTSA. doing well. doing an 'off oxygen' test to monitor sats and abilityto dc home. some pain to shoulder. in the sling. no active SOB at the moment, eating well. Objective Data Objective Data Vital Signs: Vital Signs Temp Pulse Resp BP Pulse Ox O2 Del Method O2 Flow Rate 98.8 F 96 18 143/70 H 91 Room Air 3 07/26/23 08:45 07/26/23 08:45 07/26/23 08:45 07/26/23 08:45 07/26/23 08:45 07/26/23 08:45 07/26/23 07:35 Oxygen Flow Rate (L/min) 3 Oxygen Delivery Method Room Air Weight: 237 lb 10.533 oz Body Mass Index (BMI) 42.0 Intake & Output: Intake and Output for Last 24 Hours 07/24/23 07/25/23 07/26/23 23:59 23:59 23:59 Intake Total 3434 / 3434 Balance 3434 / 3434 Lab / Micro Data 07/26/23 06:20 07/26/23 06:20 Labs: Laboratory Results - last 24 hr 07/25/23 06:52: POC Glucose 182 H 07/25/23 12:04: POC Glucose 207 H 07/25/23 20:21: POC Glucose 269 H 07/26/23 04:45: POC Glucose 189 H 07/26/23 06:20: WBC 9.6, RBC 4.14 L, Hgb 9.1 L, Hct 30.0 L, MCV 72.5 L, MCH 22.0L, MCHC 30.3 L, RDW Std Deviation 48.8 H, RDW Coeff of Christina 18.9 H, Plt Count 303, MPV 9.6, Sodium 134 L, Potassium 3.7, Chloride 96 L, Carbon Dioxide 34.0 H,Anion Gap 4 L, BUN 9, Creatinine 0.77, Estim Creat Clear Calc 82.52, Est GFR (MDRD) Af Amer 97, Est GFR (MDRD) Non-Af 80, BUN/Creatinine Ratio 11.7, Glucose 172 H, Calcium 8.8 Micro: Microbiology 07/05/23 10:50 Swab (Method) Nasal Screen MRSA/MSSA - Final Radiography Diagnostic Testing: Radiology Impression Shoulder X-Ray 07/25/23 10:36 IMPRESSION: Satisfactory alignment with no gross complications Electronically Signed: Zoltan Rascon MD at 18:05 EDT , Physical Exam Narrative spencer chaney, nvi to ax, mru and ain/pin nerves. strong radial pulse. Const alert General Appearance: cooperative Assessment & Plan Assessment/Plan (1) Arthritis of left shoulder region: PLAN: POD 1 . If stable off O2 and hospitalist agrees, can dc patient and FU as outpatient early next week or in 2 weeks. Ok to remove sling for hand wrist elbow ROM gently, no lifting over 1-2 pounds. 07/26/23 0859 <Electronically signed by Silverio Street MD> Cosigner Signature (if applicable): CC: ~ Signed [facility] Work Phone: 1(362) 409-960104-25-2024 Consult note Author Zaheer Pemberton [facility] July 26, 2023 1:21am Note Date/Time July 25, 2023 9:3 1pm [facility] Medical Records Department [address] [place] [id number] Consultation - Hospitalist 07/25/232130 MR#: [id number] Acct: [id number] Name: DAPHNEY BENSON Rep #:[id number] : 1960 63 From: Zaheer mcfarland DO PCP: [facility] St atus:ADM KENNEDY Location: [place] [address] Assessment & Plan Assessment/Plan (1) Arthritis of left shoulder region: (2) Hypoxia: PLAN: Plan Patient is a 63-year-old female who presented to [facility] on 07/25/2023 for a planned orthopedic procedure. Medicine consulted postoperatively for medical management. 1. Left shoulder osteoarthritis ? Orthopedics primary. S/p left shoulder reverse total shoulder arthroplasty with Dr. Street on 07/24. No intraoperative complications noted. PT/OT/case management following. Pain control per orthopedics. 2. Mild postoperative hypoxia ? Breathing comfortably on 2 L of cannula at rest with good saturations on evening of operation. Not on home oxygen. Suspect mild hypoxia is secondary toanesthesia and will resolve by tomorrow. Okay for nasal cannula as needed overnight given history of sleep apnea as noted below. Continue home inhalers as noted below. 3. Anemia ? Baseline hemoglobin appears to be around 9-10 since May 2022. Follow-up a.m. CBC. Home regimen is apparently ferrous sulfate 325 mg 3 times daily, willdecrease to daily as there is no benefit to twice daily or 3 times daily dosing per the literature. 4. Type 2 diabetes mellitus ? Home regimen of metformin 1000 mg twice daily, Trulicity 3 mg weekly. Okay for Humalog sliding scale insulin with meals while inpatient, can plan to resumehome regimen on discharge. Chronic medical conditions: ? Morbid obesity: BMI 42 on admit. Complicated hospital course, care and prognosis. ? History of nonobstructive CAD/hypertension/hyperlipidemia: Follows with [facility]. Continue home aspirin, statin, hydrochlorothiazide, losartan. ? Mood disorder/insomnia: Stable. Continue home bupropion, sertraline, trazodone at night. ? NADEEM: Nonadherent to home CPAP. Continue nasal cannula at night as needed while inpatient. ? COPD/asthma/seasonal allergies: Stable. Continue home inhalers, montelukast, loratadine. ? Overactive bladder: Continue home mirabegron. ? GERD: Continue home PPI. DVT prophylaxis: Lovenox Total clinical time spent by myself addressing the patient's medical issues, reviewing all the data, and collaborating with patient's care team: 35 minutes. HPI Consult Data Date of Consult: 07/26/23 HPI Narrative Reason for Consultation: Medical management HPI Narrative: DAPHNEY BENSON, is a 63 F who presented to [facility] on 07/25/2023 for a planned orthopedic procedure. Medicine consulted postoperatively for medical management. Patient has history of left shoulder OAand had left shoulder reverse total shoulder arthroplasty done with Dr. Briones today. I saw the patient at the bedside this evening around 22:00. Patient was sitting up comfortably in bed, in no acute distress. She did appearsomewhat fatigued but was conversing normally and answering all questions appropriately for me. She was breathing very comfortably on 2 L nasal cannula with good oxygen saturations at that time. Her left arm was stable in a sling. Patient did report mild to moderate left shoulder pain at this time. Stated thepain medication should be given earlier was somewhat helpful. She had not been out of bed yet since coming back up to the floor from the OR. She denies any fevers or chills. Denies any other pain or discomfort. No other acute concerns. [facility] Medical History (Updated 07/26/23 @ 01:[address] Zaheer Pemberton, ) Abnormal stress test Alcohol use Ambulates with cane Anemia Anxiety Arthritis Asthma Atherosclerotic heart disease of [place] coronary artery without angina pectoris Back pain Bronchitis Cardiology follow-up encounter Chronic cough COPD (chronic obstructive pulmonary disease) COVID-19 CPAP (continuous positive airway pressure) dependence Depression Diabetes Diabetes Dietary restriction Excessive bleeding Fracture, tibial plateau Gastric reflux GERD (gastroesophageal reflux disease) High cholesterol History of echocardiogram History of edema History of left heart catheterization (LHC) (~09/27/21) History of stress test History of ulceration Hypertension Internal impingement of left shoulder Left rotator cuff tear Left shoulder pain Leg cramps Loss of hearing Low iron MRSA (methicillin resistant staph aureus) culture positive MRSA infection Palpitations Post-menopausal Primary osteoarthritis, left shoulder Right hip pain Shortness of breath on exertion Sleep apnea Smoker Syncope Tinnitus Type 2 diabetes mellitus Vertigo Wears dentures Wears glasses Home Medications coenzyme I92-epsrhiz E 100 mg-5 unit capsule 1 cap PO DAILY SUPPLEMENT 04/14/20 [History Last Taken 07/24/23] ferrous sulfate 325 mg (65 mg iron) tablet 325 mg PO TID SUPPLEMENT 04/14/20 [History Last Taken 07/24/23] losartan 50 mg tablet 50 mg PO DAILY 04/14/20 [History Last Taken 07/24/23] metformin 1,000 mg tablet 1,000 mg PO BID DM 04/14/20 [History Last Taken 07/24/23] montelukast 10 mg tablet 10 mg PO DAILY 04/14/20 [History Last Taken 04/14/20] omeprazole 20 mg capsule,delayed release 20 mg PO QHS GERD 04/14/20 [History Last Taken 07/25/23] sertraline 100 mg tablet 150 mg PO DAILY 04/14/20 [History Last Taken 07/24/23] fluticasone propionate 50 mcg/actuation nasal spray,suspension 2 spray intranasal DAILY Wheezing 08/03/21 [History Last Taken 07/24/23] mometasone-formoterol HFA 200 mcg-5 mcg/actuation aerosol inhaler 2 inh inhalation PRN PRN Wheezing 08/03/21 [History Last Taken Unknown] Brain health 1 tablet PO DAILY 08/11/21 [History Last Taken 07/24/23] hydroxyzine pamoate 50 mg capsule 50 mg PO BID 08/11/21 [History Last Taken Unknown] naproxen sodium 220 mg tablet 220 mg PO BID PRN Pain 08/11/21 [History Last Taken 07/24/23] aspirin 81 mg tablet,delayed release (Adult Low Dose Aspirin) 81 mg PO DAILY 09/13/21 [History Last Taken 07/19/23] mirabegron 25 mg tablet,extended release 24 hr (Myrbetriq) 50 mg PO DAILY 02/10/22 [History Last Taken 07/24/23] compress.stocking,knee,reg,lrg (Relief Knee Close Toe Stocking) #2 ea 09/01/22 [Rx Last Taken Unknown] compression socks, large #2 ea 09/01/22 [Rx Last Taken Unknown] bupropion HCl 150 mg 24 hr tablet, extended release 150 mg PO DAILY 09/20/22 [History Last Taken 07/25/23] loratadine 10 mg capsule 10 mg PO DAILY 09/20/22 [History Last Taken Unknown] polyethylene glycol 3350 17 gram oral powder packet (Miralax) 17 g PO DAILY 09/20/22 [History Last Taken 07/24/23] sennosides 8.6 mg-docusate sodium 50 mg tablet 1 tab-cap PO QHS 09/20/22 [History Last Taken Unknown] trazodone 50 mg tablet 50 mg PO QHS 09/20/22 [History Last Taken 07/24/23] atorvastatin 20 mg tablet 20 mg PO QHS #90 tabs 10/30/22 [Rx Last Taken 07/24/23] hydrochlorothiazide 25 mg tablet 25 mg PO DAILY 01/04/23 [History Last Taken 07/24/23] dulaglutide 0.75 mg/0.5 mL subcutaneous pen injector (Trulicity) 3 mg subcut QWEEK 03/23/23 [History Last Taken 07/18/23] Lactobacillus acidophilus 10 billion cell capsule (Probiotic) 100 mmu cells PO DAILY 07/04/23 [History Last Taken 07/24/23] budesonide 160 mcg-glycopyr 9 mcg-formot 4.8 mcg/actuation HFA inhaler (Breztri Aerosphere) 2 inh inhalation BID 07/04/23 [History Last Taken 07/24/23] cartilage 40 mg-collagen II-boron 5 mg-hyaluronate sod 3.3 mg tablet (Move Free Ultra Triple Action (boron)) 1 tab PO QHS 07/04/23 [History Last Taken 07/24/23] cholecalciferol (vitamin D3) 1,250 mcg (50,000 unit) capsule 1,250 mcg PO FR 07/04/23 [History Last Taken 07/20/23] mecobalamin (vitamin B12) 5,000 mcg chewable tablet 5,000 mcg PO QHS 07/04/23 [History Last Taken 07/24/23] upjydxji-mirp-nadd 8 mg-folic 400 mcg-K 50 mcg-lutein 300 mcg tablet (Centrum Silver Women) 1 tab PO DAILY 07/04/23 [History Last Taken 07/24/23] oxycodone-acetaminophen 5 mg-325 mg tablet (Endocet) 1 tab PO Q4H PRN pain 5 days #30 tabs 07/25/23 [Rx Last Taken Unknown] Allergy/AdvReac Type Severity Reaction Status Date / Time isoniazid Allergy Other Verified 07/25/23 06:56 Family History Brother Atrial fibrillation Grandfather Myocardial infarction Grandmother Myocardial infarction Mother Dementia CAD (coronary artery disease) Hypertension Father COPD (chronic obstructive pulmonary disease) Hypertension Cancer Prostate, Colon, Surgical History (Updated 07/04/23 @ 09:06 by Celina Gaffney) H/O: hysterectomy History of cardiac catheterization History of colonoscopy History of esophagogastroduodenoscopy (EGD) History of shoulder surgery Hx laparoscopic cholecystectomy Hx of section Hx of eye surgery Hx of right knee surgery Social History household members: none current occupational exposures/hazards: No history of recent travel: No Smoking Status: Current every day smoker tobacco type: cigarettes alcohol intake: current alcohol intake frequency: holidays/special occasions only substance use type: does not use caffeine: Yes Type: coffee Number of servings: 5 ROS Constitutional Constitutional: Reports fatigue; Denies chills, fever(s) or weakness Eyes Eyes: Denies change in vision Cardiovascular Cardiovascular: Denies chest pain Respiratory/Chest Respiratory/Chest: Denies cough, shortness of breath at rest or wheezing Gastrointestinal Gastrointestinal: Denies abdominal pain Neurologic Neurologic: Denies dizziness, focal weakness or headache(s) Physical Exam Const alert, oriented x3 and no apparent distress Constitutional Narrative: Pleasant elderly female, morbidly obese, mildly fatigued appearing but otherwisesitting up comfortably bed, conversing normally, in no acute distress. General Appearance: cooperative and comfortable HEENT normocephalic, head/scalp atraumatic, hearing grossly normal bilaterally, nasal mucous membranes and turbinates normal and moist oral mucous membranes Eyes PERRL, EOMs intact bilaterally and conjunctivae normal Eyes Narrative: Lazy eye noted. Neck full ROM Chest inspection of chest normal Resp normal respiratory effort, normal air movement, no use of accessory muscles and clear to auscultation bilaterally Resp Narrative: Breathing comfortably on 2 L nasal cannula. Good air movement bilaterally, no wheezing or crackles noted. Cardio regular rate, regular rhythm, no murmurs and peripheral pulses 2+ throughout GI normal to inspection, nondistended, normoactive bowel sounds, soft to palpation,non-tender and non-distended Back/Spine normal ROM Extremity Extremity Narrative: Left arm stable in sling. Skin no rashes or lesions noted Neuro no focal motor deficits Speech: speech normal Psych mental status grossly normal Lab / Micro Data 07/05/23 10:50 Labs: Laboratory Results - last 24 hr 07/25/23 06:52: POC Glucose 182 H 07/25/23 12:04: POC Glucose 207 H 07/25/23 20:21: POC Glucose 269 H Imaging Radiology Impression Shoulder X-Ray 07/25/23 10:36 IMPRESSION: Satisfactory alignment with no gross complications Electronically Signed: Zoltan Rascon MD at 18:05 EDT , Charges/Coding Visit Charges Inpatient E&M: 04774 Subs Hosp L2 07/26/23 0121 <Electronically signed by Zaheer Pemberton DO> Cosigner Signature (if applicable): CC: Dr. Silverio Street MD; [facility]~ Signed [facility] Work Phone: 1(458) 963-536904-24-2024 Discharge summary Author Silverio Street [facility] July 25, 2023 11:44am Note Date/Time July 25, 2023 11: 42am [facility] Medical Records Department [address] [place] [address] Instructions for Home/Discharge Instructions 07/25/23 1141 MR#: [id number] Acct: [id number] Name: DAPHNEY BENSON Rep #:[id number] : 1960 63 From: Silverio Street MD PCP: [facility] atus:REG SDC 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, sling time study engineer Additional Activity Instructions:: ok for hand wrist elbow rom 4-6/day Dressing / Incision Call your doctor if your incision/area has: Continuous Slow Oozing, Sudden Increased Bleeding, Increased Pain/ Swelling, Increased Redness, Foul Smelling Discharge and Swelling at the incision site Remove Dressing in: leave in place till F/U Cleanse incision/area with: Do not get Incision Wet Follow Up Care Please Follow Up With: Silverio Street MD When: 2 days Test Results: Test results from this visit will be discussed in further detail at your follow- up appointment, if applicable. Discharge Plan Admission Attending Provider: Silverio Street Primary Care Provider: [facility] Instructions Patient Instructions: Reverse Total Shoulder Replace Discharge Orders/Prescriptions Prescriptions: New oxycodone-acetaminophen [Endocet] 5-325 mg tablet 1 tab PO Q4H MDD 6 PRN (Reason: pain) 5 Days Qty: 30 0RF No Action Dulera 200-5 mcg/actuation HFA aerosol inhaler 2 inh inhalation PRN PRN (Reason: Wheezing) Patient Comments: INHALE 2 PUFFS BY MOUTH TWICE DAILY fluticasone propionate 50 mcg/actuation spray,suspension 2 spray intranasal DAILY naproxen sodium 220 mg tablet 220 mg PO BID PRN (Reason: Pain) hydroxyzine pamoate 50 mg capsule 50 mg PO BID Brain health 1 tablet PO DAILY aspirin [Adult Low Dose Aspirin] 81 mg tablet,delayed release (DR/EC) 81 mg PO DAILY Myrbetriq 25 mg tablet extended release 24 hr 50 mg PO DAILY hydrochlorothiazide 25 mg tablet 25 mg PO DAILY Trulicity 0.75 mg/0.5 mL pen injector 3 mg subcut QWEEK losartan 50 MG tablet 50 mg PO DAILY sertraline 100 MG tablet 150 mg PO DAILY montelukast 10 MG tablet 10 mg PO DAILY ferrous sulfate 325 MG tablet 325 mg PO TID metformin 1,000 MG tablet 1,000 mg PO BID omeprazole 20 MG capsule 20 mg PO QHS coenzyme O73-eaenyot E 1 EACH capsule 1 cap PO DAILY (DME) compression socks, large Misc See Rx Instructions .Route Qty: 2 0RF Rx Instructions: As directed (DME) Relief Knee Close Toe Stocking Misc See Rx Instructions .ROUTE .COMPLEX Qty: 2 0RF Rx Instructions: Keep on during day, remove at night trazodone 50 mg tablet 50 mg PO QHS polyethylene glycol 3350 [Miralax] 17 gram Powder In Packet 17 g PO DAILY sennosides-docusate sodium [Senna Laxative-Stool Softener] 8.6-50 mg Tablet 1 tab-cap PO QHS bupropion HCl 150 mg tablet extended release 24 hr 150 mg PO DAILY Patient Comments: TAKE 1 TABLET BY MOUTH ONCE DAILY IN THE MORNING loratadine 10 mg Capsule 10 mg PO DAILY Breztri Aerosphere 160-9-4.8 mcg/actuation HFA aerosol inhaler 2 inh inhalation BID Probiotic 10 billion cell capsule 100 mmu cells PO DAILY mecobalamin (vitamin B12) 5,000 mcg tablet,chewable 5,000 mcg PO QHS Centrum Silver Women 8 mg iron-400 mcg-50 mcg tablet 1 tab PO DAILY pwwgrhpxt-rgniqfjd-xeb-hyalur [Move Free Ultra Triple Action] 40-5-3.3 mg tablet 1 tab PO QHS cholecalciferol (vitamin D3) 1,250 mcg (50,000 unit) capsule 1,250 mcg PO FR atorvastatin 20 mg tablet 20 mg PO QHS Qty: 90 3RF Other Ambulatory Orders: 12 Lead EKG (Routine) Timeframe: [id number] Location: None Selected Ordered By: Silverio Street [facility] - Disposition Disposition (needs filled in before D/C Order can be placed): Home, Self Care 07/25/23 1144<Electronically signed by Silverio Street MD>Silverio Street MD CC: [facility] ~ Signed [facility] Work Phone: 1(488) 103-407304-24-2024 Procedure [facility] 07-25-2023 History and physical note Author Silverio Street [facility] July 25, 2023 7:17am Note Date/Time July 25, 2023 7:1 7am [facility] Medical Records Department [address] [place] [address] History & Physical Exam 07/25/23 0717 MR#: [id number] Acct: [id number] Name: DAPHNEY BENSON Rep #:[id number] : 1960 63 From: Silverio Street MD PCP: [facility] atus:[facility] Location: [place] [address] HPI - General HPI Narrative DAPHNEY BENSON, is a 63 F who presents for left RTSA. no changes to h and p. cannot have block due to some cough today chronic. rab, instructions and narcotic counselling. ok to proceed. consent UTD, and left shoulder marked. MR#: [id number] Acct: [id number] Name: DAPHNEY BENSON Rep #: [id number] : 1960 Provider: Dr. Silverio Street MD Age/Sex: 63/F Location: [facility] [place] Status: Signed Intake Vital Signs 01/04/2315:05 07/02/2408:22 Height 5 ft 3 in 5 ft 3 in Weight: 239 lb 4 oz BMI 42.3 Intake Visit Reasons: left shoulder Accompanied by: Self Is patient in pain?: Yes Allergies isoniazid Allergy (Verified 07/03/23 09:23) Other Medications coenzyme X96-jlfhuiu E 100 mg-5 unit capsule 1 cap PO DAILY SUPPLEMENT 04/14/20 [History Confirmed 07/03/23] ferrous sulfate 325 mg (65 mg iron) tablet 325 mg PO DAILY SUPPLEMENT 04/14/20 [History Confirmed 07/03/23] losartan 50 mg tablet 50 mg PO DAILY 04/14/20 [History Confirmed 07/03/23] metformin 1,000 mg tablet 1,000 mg PO BID DM 04/14/20 [History Confirmed 07/03/23] montelukast 10 mg tablet 10 mg PO DAILY 04/14/20 [History Confirmed 07/03/23] multivitamin 1 tab PO DAILY SUPPLEMENT 04/14/20 [History Confirmed 07/03/23] omeprazole 20 mg capsule,delayed release 20 mg PO DAILY GERD 04/14/20 [History Confirmed 07/03/23] sertraline 100 mg tablet 150 mg PO DAILY 04/14/20 [History Confirmed 07/03/23] fluticasone propionate 50 mcg/actuation nasal spray,suspension 2 spray intranasal PRN PRN Wheezing 08/03/21 [History Confirmed 07/03/23] mometasone-formoterol HFA 200 mcg-5 mcg/actuation aerosol inhaler 2 inh inhalation PRN PRN Wheezing 08/03/21 [History Confirmed 07/03/23] Brain health 1 tablet PO DAILY 08/11/21 [History Confirmed 07/03/23] ergocalciferol (vitamin D2) 1,250 mcg (50,000 unit) capsule 1,250 mcg PO QWEEK 08/11/21 [History Confirmed 07/03/23] hydroxyzine pamoate 50 mg capsule 50 mg PO BID 08/11/21 [History Confirmed 07/03/23] naproxen sodium 220 mg tablet 220 mg PO BID PRN Pain 08/11/21 [History Confirmed 07/03/23] aspirin 81 mg tablet,delayed release (Adult Low Dose Aspirin) 81 mg PO DAILY 09/13/21 [History Confirmed 07/03/23] mirabegron 25 mg tablet,extended release 24 hr (Myrbetriq) 100 mg PO DAILY 02/10/22 [History Confirmed 07/03/23] glimepiride 2 mg tablet 2 mg PO DAILY 05/24/22 [History Confirmed 07/03/23] compress.stocking,knee,reg,lrg (Relief Knee Close Toe Stocking) #2 ea 09/01/22 [Rx Confirmed 07/03/23] compression socks, large #2 ea 09/01/22 [Rx Confirmed 07/03/23] furosemide 20 mg tablet 20 mg PO DAILY 09/08/22 [History Confirmed 07/03/23] bupropion HCl 150 mg 24 hr tablet, extended release 150 mg PO DAILY 09/20/22 [History Confirmed 07/03/23] loratadine 10 mg capsule 10 mg PO DAILY 09/20/22 [History Confirmed 07/03/23] polyethylene glycol 3350 17 gram oral powder packet (Miralax) 17 g PO DAILY 09/20/22 [History Confirmed 07/03/23] sennosides 8.6 mg-docusate sodium 50 mg tablet 1 tab-cap PO QHS 09/20/22 [History Confirmed 07/03/23] trazodone 50 mg tablet 50 mg PO QHS 09/20/22 [History Confirmed 07/03/23] turmeric 400 mg capsule 400 mg PO DAILY 09/20/22 [History Confirmed 07/03/23] vitamin B complex 1 tab PO DAILY 09/20/22 [History Confirmed 07/03/23] atorvastatin 20 mg tablet 20 mg PO QHS #90 tabs 10/30/22 [Rx Confirmed 07/03/23] hydrochlorothiazide 25 mg tablet 25 mg PO DAILY 01/04/23 [History Confirmed 07/03/23] lorazepam 1 mg tablet (Ativan) 1 mg PO DAILY PRN for MRI #2 tabs 03/09/23 [Rx Confirmed 07/03/23] dulaglutide 0.75 mg/0.5 mL subcutaneous pen injector (Trulicity) 0.75 mg subcut QWEEK 03/23/23 [History Confirmed 07/03/23] PFSH Medical History Abnormal stress test Anxiety Arthritis Asthma Atherosclerotic heart disease of [place] coronary artery without angina pectoris Back pain Bronchitis Cardiology follow-up encounter Chronic cough COPD (chronic obstructive pulmonary disease) COVID-19 Depression Diabetes Excessive bleeding Fracture, tibial plateau Gastric reflux History of echocardiogram History of edema History of left heart catheterization (LHC) (~09/27/21) History of stress test Hypertension Internal impingement of left shoulder Left rotator cuff tear Left shoulder pain Leg cramps MRSA (methicillin resistant staph aureus) culture positive Palpitations Post-menopausal Primary osteoarthritis, left shoulder Right hip pain Shortness of breath on exertion Sleep apnea Smoker Syncope Type 2 diabetes mellitus Vertigo Wears dentures Wears glasses Surgical History H/O: hysterectomy History of cardiac catheterization History of shoulder surgery Hx laparoscopic cholecystectomy Hx of section Hx of eye surgery Hx of right knee surgery Family History Brother Atrial fibrillationGrandfather Myocardial infarctionGrandmother Myocardial infarctionMother Dementia CAD (coronary artery disease) HypertensionFather COPD (chronic obstructive pulmonary disease) Hypertension Cancer Prostate, Colon, Social History household members: none current occupational exposures/hazards: No history of recent travel: No Smoking Status: Former smoker alcohol intake: current alcohol intake frequency: holidays/special occasions only substance use type: does not use caffeine: Yes Type: coffee Number of servings: 5 HPI left shoulder Details: This documentation accurately reflects the service provided and the decisions made by me, Dr. Silverio Street MD 07/03/23 0918. Part of today?s visit was documented by [ ], acting as scribe. DAPHNEY BENSON is a 63 year old F here today for FU L shoulder pain, pending going ahead with left RTSA, Ortho Exam General General: Yes no acute distress Neurologic: Yes alert and Yes oriented x3 Psychologic: Yes reasonable and appropriate Left Shoulder Skin/Wound: Yes CDI SHOULDER: active FE 30 and quite painful today Coding Level of Care Code Off vis,est,level 4 Diagnoses Left rotator cuff tear M75.102 Primary osteoarthritis, left shoulder M19.012 Left shoulder pain M25.512 Assessment and Plan Assessment and Plan (1) Left rotator cuff tear: Status: Acute Plan: 63-year-old female with left shoulder pain weakness and osteoarthritis for open surgery left reverse total shoulder arthroplasty. The patient be at increased risk due to the diabetes to get hemoglobin A1c prior to proceeding and make surethat is under 7, as well as other risks for infection and other problems like obesity and cellulitis in legs recently treated. Patient understands explained the pros cons risk and benefits of surgery to the patient they wish to go ahead and sign a consent for left reverse total shoulder arthroplasty. Pros and cons risks and benefits were discussed with the patient including but not limited to infection, pain, stiffness, bleeding, damage to surrounding structures, neurovascular injury, recurrence or retear, failure or wear of hardware or fixation, instability, fracture, deep vein thrombosis and pulmonary embolism, anesthetic risks, , patient dissatisfaction, need for further surgery and other risks. Patient understood and wished to proceed with surgery,and signed the informed consent documentation. (2) Primary osteoarthritis, left shoulder: Status: Acute (3) Left shoulder pain: Status: Acute [facility] Medical History (Updated 07/04/23 @ 09:06 by Celina Gaffney) Abnormal stress test Alcohol use Ambulates with cane Anemia Anxiety Arthritis Asthma Atherosclerotic heart disease of [place] coronary artery without angina pectoris Back pain Bronchitis Cardiology follow-up encounter Chronic cough COPD (chronic obstructive pulmonary disease) COVID-19 CPAP (continuous positive airway pressure) dependence Depression Diabetes Diabetes Dietary restriction Excessive bleeding Fracture, tibial plateau Gastric reflux GERD (gastroesophageal reflux disease) High cholesterol History of echocardiogram History of edema History of left heart catheterization (LHC) (~09/27/21) History of stress test History of ulceration Hypertension Internal impingement of left shoulder Left rotator cuff tear Left shoulder pain Leg cramps Loss of hearing Low iron MRSA (methicillin resistant staph aureus) culture positive MRSA infection Palpitations Post-menopausal Primary osteoarthritis, left shoulder Right hip pain Shortness of breath on exertion Sleep apnea Smoker Syncope Tinnitus Type 2 diabetes mellitus Vertigo Wears dentures Wears glasses Home Medications coenzyme H10-joifkom E 100 mg-5 unit capsule 1 cap PO DAILY SUPPLEMENT 04/14/20 [History Last Taken 07/24/23] ferrous sulfate 325 mg (65 mg iron) tablet 325 mg PO TID SUPPLEMENT 04/14/20 [History Last Taken 07/24/23] losartan 50 mg tablet 50 mg PO DAILY 04/14/20 [History Last Taken 07/24/23] metformin 1,000 mg tablet 1,000 mg PO BID DM 04/14/20 [History Last Taken 07/24/23] montelukast 10 mg tablet 10 mg PO DAILY 04/14/20 [History Last Taken 04/14/20] omeprazole 20 mg capsule,delayed release 20 mg PO QHS GERD 04/14/20 [History Last Taken 07/25/23] sertraline 100 mg tablet 150 mg PO DAILY 04/14/20 [History Last Taken 07/24/23] fluticasone propionate 50 mcg/actuation nasal spray,suspension 2 spray intranasal DAILY Wheezing 08/03/21 [History Last Taken 07/24/23] mometasone-formoterol HFA 200 mcg-5 mcg/actuation aerosol inhaler 2 inh inhalation PRN PRN Wheezing 08/03/21 [History Last Taken Unknown] Brain health 1 tablet PO DAILY 08/11/21 [History Last Taken 07/24/23] hydroxyzine pamoate 50 mg capsule 50 mg PO BID 08/11/21 [History Last Taken Unknown] naproxen sodium 220 mg tablet 220 mg PO BID PRN Pain 08/11/21 [History Last Taken 07/24/23] aspirin 81 mg tablet,delayed release (Adult Low Dose Aspirin) 81 mg PO DAILY 09/13/21 [History Last Taken 07/19/23] mirabegron 25 mg tablet,extended release 24 hr (Myrbetriq) 50 mg PO DAILY 02/10/22 [History Last Taken 07/24/23] compress.stocking,knee,reg,lrg (Relief Knee Close Toe Stocking) #2 ea 09/01/22 [Rx Last Taken Unknown] compression socks, large #2 ea 09/01/22 [Rx Last Taken Unknown] bupropion HCl 150 mg 24 hr tablet, extended release 150 mg PO DAILY 09/20/22 [History Last Taken 07/25/23] loratadine 10 mg capsule 10 mg PO DAILY 09/20/22 [History Last Taken Unknown] polyethylene glycol 3350 17 gram oral powder packet (Miralax) 17 g PO DAILY 09/20/22 [History Last Taken 07/24/23] sennosides 8.6 mg-docusate sodium 50 mg tablet 1 tab-cap PO QHS 09/20/22 [History Last Taken Unknown] trazodone 50 mg tablet 50 mg PO QHS 09/20/22 [History Last Taken 07/24/23] atorvastatin 20 mg tablet 20 mg PO QHS #90 tabs 10/30/22 [Rx Last Taken 07/24/23] hydrochlorothiazide 25 mg tablet 25 mg PO DAILY 01/04/23 [History Last Taken 07/24/23] dulaglutide 0.75 mg/0.5 mL subcutaneous pen injector (Trulicity) 3 mg subcut QWEEK 03/23/23 [History Last Taken 07/18/23] Lactobacillus acidophilus 10 billion cell capsule (Probiotic) 100 mmu cells PO DAILY 07/04/23 [History Last Taken 07/24/23] budesonide 160 mcg-glycopyr 9 mcg-formot 4.8 mcg/actuation HFA inhaler (Breztri Aerosphere) 2 inh inhalation BID 07/04/23 [History Last Taken 07/24/23] cartilage 40 mg-collagen II-boron 5 mg-hyaluronate sod 3.3 mg tablet (Move Free Ultra Triple Action (boron)) 1 tab PO QHS 07/04/23 [History Last Taken 07/24/23] cholecalciferol (vitamin D3) 1,250 mcg (50,000 unit) capsule 1,250 mcg PO FR 07/04/23 [History Last Taken 07/20/23] mecobalamin (vitamin B12) 5,000 mcg chewable tablet 5,000 mcg PO QHS 07/04/23 [History Last Taken 07/24/23] ichblkwj-smjx-whtd 8 mg-folic 400 mcg-K 50 mcg-lutein 300 mcg tablet (Centrum Silver Women) 1 tab PO DAILY 07/04/23 [History Last Taken 07/24/23] Allergy/AdvReac Type Severity Reaction Status Date / Time isoniazid Allergy Other Verified 07/25/23 06:56 Family History Brother Atrial fibrillation Grandfather Myocardial infarction Grandmother Myocardial infarction Mother Dementia CAD (coronary artery disease) Hypertension Father COPD (chronic obstructive pulmonary disease) Hypertension Cancer Prostate, Colon, Surgical History (Updated 07/04/23 @ 09:06 by Celina Gaffney) H/O: hysterectomy History of cardiac catheterization History of colonoscopy History of esophagogastroduodenoscopy (EGD) History of shoulder surgery Hx laparoscopic cholecystectomy Hx of section Hx of eye surgery Hx of right knee surgery Social History household members: none current occupational exposures/hazards: No history of recent travel: No Smoking Status: Current every day smoker tobacco type: cigarettes alcohol intake: current alcohol intake frequency: holidays/special occasions only substance use type: does not use caffeine: Yes Type: coffee Number of servings: 5 Vital Signs Vital Signs Vital Signs: 07/25/23 07:03 Temperature 98.9 F Temperature Source Temporal Pulse Rate 83 Respiratory Rate 12 Blood Pressure 135/70 H Blood Pressure Mean 91 Blood Pressure Source Monitor Blood Pressure Position Semi-Fowlers Blood Pressure Location Right Arm Pulse Ox 95 Oxygen Delivery Method Room Air Weight Weight: 237 lb 10.533 oz Body Mass Index (BMI) 42.0 Results Lab / Micro Data 07/05/23 10:50 07/25/23 0717 <Electronically signed by Silverio Street MD> Cosigner Signature (if applicable): CC: Dr. Silverio Street MD; [facility]~ Signed [facility] Work Phone: 1(810) 352-952711-10-2023 NoteHNO ID: [id number] Author: Otilia Disla APRN.[facility] Service: ? Author Type: Nurse Practitioner Type: Progress Notes Filed: 02/09/2023 2:41 PM Note Text: Daphney Benson is a 62 year old female who presents today for evaluation of No chief complaint on file. CHIEF COMPLAINT AND HISTORY OF PRESENT ILLNESS CC: follow up 62 year old female with a history of asthma, HTN, DM, JUSTYN, recurrent uti presents for follow up, she is currently taking mirabegron 50 mg she continues to have urinary frequency, urgency and incontinence. PVR 11 cc, reports of intermittent left flank discomfort since her last visit, no past history of renal calculi, outside urine culture positive for proteus Completed 4 sessions of PFPT and now completes on her own She is asking for further treatment options, third line therapy was discussed DTF hourly, NTF 1-2 Denies straining to void Denies gross hematuria Using vaginal estrace 2 evenings per week one set of twins second was a miscarriage Denies vaginal bulge Pelvic 3 months ago, declined Fluid intake 3-4 cups coffee per day water Past Urological History: Stones:no Surgery:no Tumors:no Infections:yes: currently VITALS: There were no vitals taken for this visit. ALLERGIES: Isoniazid MEDICATIONS: Current Outpatient Medications Medication Sig Dispense Refill buPROPion XL (WELLBUTRIN XL) 150 mg 24 hr tablet cefdinir (OMNICEF) 300 mg capsule furosemide (LASIX) 20 mg tablet glimepiride (AMARYL) 2 mg tablet MYRBETRIQ 50 mg Tb24 DULERA 200-5 mcg/actuation inhaler loratadine (CLARITIN) 10 mg tablet hydrOXYzine pamoate (VISTARIL) 50 mg capsule atorvastatin (LIPITOR) 20 mg tablet traZODone (DESYREL) 50 mg tablet sertraline (ZOLOFT) 100 mg tablet metFORMIN (GLUCOPHAGE) 1,000 mg tablet Take 1,000 mg by mouth daily with breakfast. estradiol (ESTRACE) 0.01 % (0.1 mg/gram) vaginal cream apply one gram over the vagina opening every night for 2 weeks then 2 evenings per week 42.5 g 2 polyethylene glycol 3350 (MIRALAX) 17 gram/dose powder Take 17 g by mouth once daily. metFORMIN (GLUCOPHAGE) 500 mg tablet Take 250 mg by mouth daily with dinner. In addition to 500mg in the morning fluticasone (FLONASE) 50 mcg/actuation nasal spray Use 1 [place] in each nostril once daily. losartan (COZAAR) 25 mg tablet Take 25 mg by mouth once daily. ubidecarenone Q-10 (COENZYME Q-10) 10 mg cap Take 10 mg by mouth once daily. (Patient not taking: Reported on 11/08/2022) sertraline (ZOLOFT) 50 mg tablet Take 1 tablet by mouth once daily. 2 cholecalciferol, Vitamin D3, (VITAMIN D3) 1,250 mcg (50,000 unit) cap capsule Take 50,000 Units by mouth every Sunday. 2 omeprazole (PRILOSEC) 20 mg capsule Take 1 capsule by mouth once daily. 0 metFORMIN (GLUCOPHAGE) 500 mg tablet Take 1 tablet by mouth once daily. In addition to 250mg in the evening 2 montelukast (SINGULAIR) 10 mg tablet Take 1 tablet by mouth once daily. 2 Hydrochlorothiazide 12.5 mg capsule Take 1 capsule by mouth once daily. 90 capsule 1 budesonide-formoterol (SYMBICORT) 160-4.5 mcg/actuation inhaler Inhale 2 Puffs as instructed twice daily. (Patient not taking: Reported on 11/08/2022) 6 Inhaler 1 albuterol HFA (VENTOLIN HFA) 90 mcg/actuation inhaler Inhale 2 Puffs as instructed every 4 hours as needed (FOR COUGH OR WHEEZE). (Patient not taking: Reported on 11/08/2022) 3 Inhaler 1 naproxen (NAPROSYN) 500 mg tablet Take 1 tablet by mouth twice daily as needed (pain/inflammation, take with food.). 180 tablet 3 ketoconazole (NIZORAL) 2 % cream Apply 1 application to affected area twice daily. (Patient not taking: Reported on 11/08/2022) 60 g 1 VITAMIN B COMPLEX (B COMPLEX 1 ORAL) Take 1 tablet by mouth once daily. multivitamin tablet Take 1 tablet by mouth once daily. No current facility-administered medications for this visit. 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 MRSA. hospitalized for abdominal abscesses PAST SURGICAL HISTORY OF c/s (more content not included)...[facility]10-16-2023 Discharge summary Author Suzette Salinas [facility] January 15, 2023 10:47am Note Date/Time January 15, 2023 1 0:47am [facility] Physical Therapy [facility] [address] [place] [address] [address] [place] [id number] / REHABILITATION SERVICES DISCHARGE SUMMARY MR#: [id number] Acct: [id number] Name: DAPHNEY BENSON Rep #: [id number] : 1960 62 From: Suzette Tompkins Referring Dr.: Dr. Silverio Street MD Status: [facility] Insurance: [facility] SELF PAY INSURANCE Discharge Summary D/C summary: It has been my pleasure to treat DAPHNEY BENSON referred by Dr. Silverio Street MD, with the diagnosis of 09/27- L should arthroscopy subacromial decombiceps tenotomy debride of RTC for a total of 20 visit(s). Discharge Date: Please see the following information for a summary of their discharge status. Subjective Subjective: Patient reports that she has a lot of pain in the anterior shoulder currently a 1/10 but when she moves it its a 7/10. She does not have an apt to go back to the MD for awhile. She feels that its really stiff in the AM when she gets up in the AM- she is really frustrated with the shoulder. She feels like the shoulder may have been better prior to surgery- it might have been painful but she felt like she had better mobility. Once she gets to sleep- [place] she is normally able to stay asleep. Pain Left Shoulder: Pain Intensity (Out of 10): 1 Overall Improvement % Improvement: 0 Objective Objective/Function: Posture: forward head, rounded shoulders- mild guarding of the left UE Gait: good arm swing and trunk rotation Palpation: severe tender along bicipital groove Left Shoulder AROM: Flexion: 130 degrees with severe pain at end range and slow movements Abd: 50 degrees IR: belt line, ER:50 degrees Strength: 4/5 isometric- mild soreness with all motions- elbow: 4+/5 Goals Goal 1:: Patient will be I with HEP and progression Goal Progress: Progressing Goal 2:: Patient will demo full AROM of the left shoulder. Goal Progress: Progressing Goal 3:: Patient will maintain proper posture t/o tx to demo increased scap s/s Goal Progress: Goal Met Goal 4:: Patient will report 80% improvement Goal Progress: 50% Goal 5:: 130 aROM elevation to help with ADLs Goal Progress: NEW GOAL Plan Plan: 01/15/23: Return to MD for further evaluation- severe pain with all mobility- limiting progression 2x/week for 4-6 week for strengthening progression, take care with biceps, Pt doing phase 3 shoulder via HEP ...work toward I program at [employer] to tolerance. Continue PROM , end range stretches each session. D/C Information d/c sentence: If there are questions or concerns regarding this patient's physical therapy, please feel free to call me at [phone]. Thank you for the referral of thispatient. Sincerely, Suzette Salinas, DPT Balance/Gait/Functional tests Balance/Special Test Scores Quick DASH Score: 36.3625 Improvement % Improvement: 0 <Electronically signed by Suzette Salinas DPT> 01/15/23 1047 CC: Dr. Silverio Street MD; [facility] ~ ELR Signed [facility] Work Phone: 1([phone]) 940-507509-26-2023 NoteHNO ID: [id number] Author: Carolin Dumont, PT Service: ? Author Type: Physical Therapist Type: Progress Notes Filed: 12/26/2022 2:28 PM Note Text: Episode Visit Count: 4 Therapist That Will Accept/Oversee The Plan Of Care: Carolin Rodriguez Start of Care Date: 11/14/22 Onset Date: 11/14/02 Plan of Care Certification Date: 11/14/22 Next Certification Due Date: 01/13/23 Patient Identified by Name and Date of : Yes REHABILITATION AND SPORTS THERAPY PHYSICAL THERAPY DISCONTINUANCE OF CARE PLAN OF CARE UPDATE: Assessment: Daphney Benson is discontinued from Physical Therapy services due to goal achievement and maximal benefit.. Patient was seen for 4 visits from Start of Care Date: 11/14/22 to 12/26/2022 and treatment included: Therapeutic exercise and Self-jail management. Goals for Episode of Care: created on 11/14/22 Updated on: 12/26/22 [place] in home exercise program.-MET Patient will demonstrate increase in BLE strength to 5/5 during manual muscle testing in order to improve function for prior functional tasks.-MET Patient to increase strength of pelvic floor to Power: at least 3/5 in order to improve bladder control.-MET (on 12/01) Patient to correctly isolate pelvic floor muscles without compensatory patterns to improve bladder control.-MET (on 12/01) Patient to urinate every 2-4 hours during the daytime to demonstrate normalized bladder function.-MET Patient reports nocturia less than or equal to 1 time to demonstrate normalized bladder function.-MET Patient reports at least 75% less bladder urgency to avoid incontinent Episodes.-MET Patient reports at least 75% improvement in bladder leaks while coughing/sneezing compared to evaluation in order to increase bladder function in activities of daily living. -MOSTLY MET Patient reports increased ability to fully empty bladder at least 75% of the time to normalize bladder function.-MET Patient Goals: improve bladder function SUBJECTIVE: Pt reports bladder has been feeling good, states she has UI whenever she holds for too long due to not feeling like getting up. Pt reports good compliance with HEP, feels comfortable continuing on her own at home. Pain: Pain Pain Level: 0 Post Treatment Pain Post Treatment Pain Level: 0 PROMIS Scales Higher is Better 11/14/2022 Phys Func - Score 35 (moderate dysfunction) Phys Func - Percentile 7 % Self-Eff Symptom - Score 36 (Low) Self-Eff Symptom - Percentile 8 % T-scores: mean of general population = 50. 5 points is clinically meaningfully difference Percentiles provide an indication of how the patient's score ranks in relation to the general population. Higher percentile rankings indicate better function/quality of life. 50th percentile is the average of the general population and indicates half of respondents had a worse score. OBJECTIVE MEASURES WITH LEVEL OF FUNCTION: Pelvic Floor Incomplete emptying: No Stress Incontinence: Cough/sneeze (minimal) Urgency: Sometimes Frequency of Urgency Episodes: 2x/week Frequency of Leaks Secondary to Urge: 2x/week Nocturia (times per night): (0-1) Daytime Frequency (hours): 2-3 Water : not enough LE Strength R LE Strength: 5/5 grossly L LE Strength: 5/5 grossly TREATMENT: Therapeutic Exercise: 1: Reassessment 2: sit to stand with kegal, 1x5 3: *seated rows with PF bracing, L3, 2x10 4: *seated pull downs with PF bracing, L3 TB, 2x10 5: Discussed discharge planning Skilled Intervention: Patient was educated in proper exercise technique and purpose for exercises. Reviewed and educated patient on additions/changes for home exercise program as above (*). Skilled judgment was provided in selection of appropriate interventions. Provided written instruction for home exercise program to facilitate proper performance and compliance. Self-Custodial Management: 1: Reviewed importance of appropriate water intake for bladder health 2: Reviewed benefits of bracing PF during functional tasks, knack technique Skilled Intervention: Skilled judgment in the selection of proper modification for activity of daily living/home management based on clinical presentation, deficits, and needs. Billing Therapeutic Exercise Treatment Minutes: 23 Self-Care/Home Management Treatment Minutes: 3 Skilled Treatment Time Minutes (timed and untimed codes): 26 Total Session Time (minutes): 26 Session Start Time : 1400 Session Stop Time : 1426 Carolin Rodriguez [facility]09-05-2023 Miscellaneous Notes* Telephone Encounter - Otilia Disla APRN.[facility] - 12/05/2022 10:53 AM EDT Reviewed and sent to scanning Urine culture on 11/03/2022 Proteus mirabilis * Telephone Encounter - Melita Beach RN - 11/24/2022 2:51 PM EDT Type of letter/form/fax request - Old Records Form received from [facility] on 6th floor and placed on MD mailbox for completion. Sent to scanning and given to Otilia. [facility]-2023 NoteHNO ID: [id number] Author: Carolin Dumont PT Service: ? Author Type: Physical Therapist Type: Progress Notes Filed: 12/01/2022 9:59 AM Note Text: Episode Visit Count: 3 Therapist That Will Accept/Oversee The Plan Of Care: Carolin Rodriguez Start of Care Date: 11/14/22 Onset Date: 11/14/02 Plan of Care Certification Date: 11/14/22 Next Certification Due Date: 01/13/23 Patient Identified by Name and Date of : Yes REHABILITATION AND SPORTS THERAPY PHYSICAL THERAPY TREATMENT NOTE ASSESSMENT: Daphney Benson tolerated the session with no issues. She demonstrated improvements in nocturia, frequency of urinary urgency and urge incontinence episodes. Upon pelvic floor muscle assessment, patient demonstrated good pelvic floor muscle strength and coordination. The patient will continue to benefit from ongoing skilled physical therapy to progress toward set goals. PLAN FOR NEXT VISIT: progress standing exercises as tolerated SUBJECTIVE: Pt reports feeling great, has gone a few days without any UI. Pt reports being able to sleep through the night without urinating. Pt reports being more aware of bladder, is able to listen to signal without it being urgent all the time. Pt reports good compliance with HEP. Pain: Pain Pain Level: 0 Post Treatment Pain Post Treatment Pain Level: 0 OBJECTIVE MEASURES WITH LEVEL OF FUNCTION: Pelvic Floor Urgency: Yes Frequency of Urgency Episodes: a couple times a day Frequency of Leaks Secondary to Urge: not every day Nocturia (times per night): 0 Pelvic Floor Muscle Assessment Consent for pelvic assessment/testing and treatment: Patient was educated regarding pelvic floor physical therapy assessment/treatment which may include pelvic floor and girdle muscle assessment externally or internally (vaginal or rectal approach)., Patient verbalized consent for the above treatment approaches today. Patient understands they have control of the treatment and an opportunity to stop treatment at any time. Pelvic Floor Muscle Assessment: PERFECT, Muscle Dynamics Power: 3 Endurance: 7 Fast Reps: 10 Contracton Pressure: Moderate squeeze, felt all the way around finger surface Duration of Contraction: >3 seconds Recruitment of pelvic floor muscles: Coordinated Range of Motion: Normal Ability to Lengthen pelvic floor: Yes TREATMENT: Therapeutic Exercise: 1: PF mm assessment 2: standing quick kegals, 1x10 3: *standing hip abduction with PF bracing, 2x10 each 4: *standing hip extension with PF bracing, 2x10 each 5: seated TA bracing, 1x10 6: seated TA bracing with alternating marches, 1x10 Skilled Intervention: Patient was educated in proper exercise technique and purpose for exercises. Reviewed and educated patient on additions/changes for home exercise program as above (*). Skilled judgment was provided in selection of appropriate interventions. Provided written instruction for home exercise program to facilitate proper performance and compliance. Billing Therapeutic Exercise Treatment Minutes: 38 Total Session Time (minutes): 38 Session Start Time : 919 Session Stop Time : 957 Carolin Rodriguez, [facility]09-01-2023 History of Present illness Narrative* Carolin Dumont, PT - 12/01/2022 9:20 AM EDT Episode Visit Count: 3 Therapist That Will Accept/Oversee The Plan Of Care: Carolin Rodriguez Start of Care Date: 11/14/22 Onset Date: 11/14/02 Plan of Care Certification Date: 11/14/22 Next Certification Due Date: 01/13/23 Patient Identified by Name and Date of : Yes REHABILITATION AND SPORTS THERAPY PHYSICAL THERAPY TREATMENT NOTE ASSESSMENT: Daphney Benson tolerated the session with no issues. She demonstrated improvements in nocturia, frequency of urinary urgency and urge incontinence episodes. Upon pelvic floor muscle assessment, patient demonstrated good pelvic floor muscle strength and coordination. The patient will continue to benefit from ongoing skilled physical therapy to progress toward set goals. PLAN FOR NEXT VISIT: progress standing exercises as tolerated SUBJECTIVE: Pt reports feeling great, has gone a few days without any UI. Pt reports being able to sleep through the night without urinating. Pt reports being more aware of bladder, is able to listento signal without it being urgent all the time. Pt reports good compliance with HEP. Pain: Pain Pain Level: 0 Post Treatment Pain Post Treatment Pain Level: 0 OBJECTIVE MEASURES WITH LEVEL OF FUNCTION: Pelvic Floor Urgency: Yes Frequency of Urgency Episodes: a couple times a day Frequency of Leaks Secondary to Urge: not every day Nocturia (times per night): 0 Pelvic Floor Muscle Assessment Consent for pelvic assessment/testing and treatment: Patient was educated regarding pelvic floor physical therapy assessment/treatment which may include pelvic floor and girdle muscle assessment externally or internally (vaginal or rectal approach)., Patient verbalized consent for the above treatment approaches today. Patient understands they have control of the treatment and an opportunity to stop treatment at any time. Pelvic Floor Muscle Assessment: PERFECT, Muscle Dynamics Power: 3 Endurance: 7 Fast Reps: 10 Contracton Pressure: Moderate squeeze, felt all the way around finger surface Duration of Contraction: >3 seconds Recruitment of pelvic floor muscles: Coordinated Range of Motion: Normal Ability to Lengthen pelvic floor: Yes TREATMENT: Therapeutic Exercise: 1: PF mm assessment 2: standing quick kegals, 1x10 3: *standing hip abduction with PF bracing, 2x10 each 4: *standing hip extension with PF bracing, 2x10 each 5: seated TA bracing, 1x10 6: seated TA bracing with alternating marches, 1x10 Skilled Intervention: Patient was educated in proper exercise technique and purpose for exercises. Reviewed and educated patient on additions/changes for home exercise program as above (*). Skilled judgment was provided in selection of appropriate interventions. Provided written instruction for home exercise program to facilitate proper performance and compliance. Billing Therapeutic Exercise Treatment Minutes: 38 Total Session Time (minutes): 38 Session Start Time : 919 Session Stop Time : 957 Carolin Rodriguez PT documented in this encounterReg[facility] Center08-25-2023 NoteHNO ID: [id number] Author: Carolin Dumont PT Service: ? Author Type: Physical Therapist Type: Progress Notes Filed: 11/24/2022 3:30 PM Note Text: Episode Visit Count: 2 Therapist That Will Accept/Oversee The Plan Of Care: Carolin Rodriguez Start of Care Date: 11/14/22 Onset Date: 11/14/02 Plan of Care Certification Date: 11/14/22 Next Certification Due Date: 01/13/23 Patient Identified by Name and Date of : Yes REHABILITATION AND SPORTS THERAPY PHYSICAL THERAPY TREATMENT NOTE ASSESSMENT: Daphney Benson tolerated the session with fatigue. She demonstrated difficulty with unchanged urinary urgency, improvement in nocturia. Pelvic floor muscle assessment deferred this date due to patient request. The patient will continue to benefit from ongoing skilled physical therapy to progress toward set goals. PLAN FOR NEXT VISIT: review bladder diary, PF mm assessment, progress exercises as tolerated SUBJECTIVE: Pt reports forgetting to bring bladder diary today. Pt states some days are better than others, is trying to cut back on coffee. Pt reports no change in urinary urgency but does state nocturia has improved. Pt declines PF mm assessment this date. Pt reports good compliance with HEP. Pain: Pain Pain Level: 0 Post Treatment Pain Post Treatment Pain Level: 0 OBJECTIVE MEASURES WITH LEVEL OF FUNCTION: Pelvic Floor Urgency: Yes Frequency of Urgency Episodes: multiple times a day Frequency of Leaks Secondary to Urge: multiple times a day Nocturia (times per night): (0-1) Coffee: 3 Pelvic Floor Muscle Assessment Consent for pelvic assessment/testing and treatment: (PF mm assessment deferred due to pt request.) TREATMENT: Therapeutic Exercise: 1: Pt declined PF mm assessment this date. 2: Pt declined table exercises, requested to perform sitting exercises. 3: *seated quick kegals, 2x10 4: seated TA bracing, 1x10 5: *seated TA bracing with alternating marches, 2x10 6: *sit to stand with PF bracing, 2x5 Skilled Intervention: Patient was educated in proper exercise technique and purpose for exercises. Reviewed and educated patient on additions/changes for home exercise program as above (*). Skilled judgment was provided in selection of appropriate interventions. Provided written instruction for home exercise program to facilitate proper performance and compliance. Billing Therapeutic Exercise Treatment Minutes: 38 Total Treatment Time Minutes (timed/untimed): 38 Session Start Time : 1452 Session Stop Time : 1530 Carolin Rodriguez, [facility]08-25-2023 History of Present illness Narrative* Carolin Dumont, PT - 11/24/2022 2:52 PM EDT Episode Visit Count: 2 Therapist That Will Accept/Oversee The Plan Of Care: Carolin Rodriguez Start of Care Date: 11/14/22 Onset Date: 11/14/02 Plan of Care Certification Date: 11/14/22 Next Certification Due Date: 01/13/23 Patient Identified by Name and Date of : Yes REHABILITATION AND SPORTS THERAPY PHYSICAL THERAPY TREATMENT NOTE ASSESSMENT: Daphney Benson tolerated the session with fatigue. She demonstrated difficulty with unchanged urinary urgency, improvement in nocturia. Pelvic floor muscle assessment deferred this date due to patient request. The patient will continue to benefit from ongoing skilled physical therapyto progress toward set goals. PLAN FOR NEXT VISIT: review bladder diary, PF mm assessment, progress exercises as tolerated SUBJECTIVE: Pt reports forgetting to bring bladder diary today. Pt states some days are better thanothers, is trying to cut back on coffee. Pt reports no change in urinary urgency but does state nocturia has improved. Pt declines PF mm assessment this date. Pt reports good compliance with HEP. Pain: Pain Pain Level: 0 Post Treatment Pain Post Treatment Pain Level: 0 OBJECTIVE MEASURES WITH LEVEL OF FUNCTION: Pelvic Floor Urgency: Yes Frequency of Urgency Episodes: multiple times a day Frequency of Leaks Secondary to Urge: multiple times a day Nocturia (times per night): (0-1) Coffee: 3 Pelvic Floor Muscle Assessment Consent for pelvic assessment/testing and treatment: (PF mm assessment deferred due to pt request.) TREATMENT: Therapeutic Exercise: 1: Pt declined PF mm assessment this date. 2: Pt declined table exercises, requested to perform sitting exercises. 3: *seated quick kegals, 2x10 4: seated TA bracing, 1x10 5: *seated TA bracing with alternating marches, 2x10 6: *sit to stand with PF bracing, 2x5 Skilled Intervention: Patient was educated in proper exercise technique and purpose for exercises. Reviewed and educated patient on additions/changes for home exercise program as above (*). Skilled judgment was provided in selection of appropriate interventions. Provided written instruction for home exercise program to facilitate proper performance and compliance. Billing Therapeutic Exercise Treatment Minutes: 38 Total Treatment Time Minutes (timed/untimed): 38 Session Start Time : 1452 Session Stop Time : 1530 Carolin Rodriguez, PT [facility] NoteHNO ID: [id number] Author: Carolin Dumont PT Service: ? Author Type: Physical Therapist Type: Progress Notes Filed: 11/14/2022 8:51 AM Note Text: Episode Visit Count: 1 Therapist That Will Accept/Oversee The Plan Of Care: Carolin Rodriguez Start of Care Date: 11/14/22 Onset Date: 11/14/02 Plan of Care Certification Date: 11/14/22 Next Certification Due Date: 01/13/23 Patient Identified by Name and Date of : Yes REHABILITATION AND SPORTS THERAPY PHYSICAL THERAPY EVALUATION PLAN OF CARE: Assessment: Daphney Benson presents with chief complaint of mixed urinary incontinence that interferes with bladder function . She presents with impairments in decreased BLE strength; impaired bladder function. Pelvic floor muscle assessment deferred this date, to be performed next visit. PROMIS? (Patient-Reported Outcomes Measurement Information System) scores were reviewed and physical function domain and self efficacy domain identified as a rehabilitation concern. Prognosis for therapy is Fair due to: clinical presentation, chronic nature of impairments . She will benefit from skilled therapy services to meet the goals established for this plan of care as noted below. Goals for Episode of Care: created on 11/14/22 through 01/13/23 [place] in home exercise program. Patient will demonstrate increase in BLE strength to 5/5 during manual muscle testing in order to improve function for prior functional tasks. Patient to increase strength of pelvic floor to Power: at least 3/5 in order to improve bladder control.-TBA Patient to correctly isolate pelvic floor muscles without compensatory patterns to improve bladder control.-TBA Patient to urinate every 2-4 hours during the daytime to demonstrate normalized bladder function. Patient reports nocturia less than or equal to 1 time to demonstrate normalized bladder function. Patient reports at least 75% less bladder urgency to avoid incontinent episodes. Patient reports at least 75% improvement in bladder leaks while coughing/sneezing compared to evaluation in order to increase bladder function in activities of daily living. Patient reports increased ability to fully empty bladder at least 75% of the time to normalize bladder function. Patient Goals: improve bladder function Planned Interventions, Frequency, and Duration: Current Frequency: 1x/week Duration: 4 weeks (reassess at 4 weeks and progress as indicated) Total Number of Visits Planned: 4 Planned Treatment Interventions: Therapeutic exercise (76174), Manual therapy (79335), Self-jail management (25537), Patient/Family/Caregiver Education PLAN FOR NEXT VISIT: review bladder diary, PF mm assessment Patient demonstrates good understanding of plan of care and treatment. The above goals and plan of care were discussed and agreed upon by patient/family. SUBJECTIVE: Pt reports UI began about 20 years ago. Patient Goals: improve bladder function Functional Limitations: bladder function Prior Level of Function: Independent without limitations Relevant History Past Relevant Medical Conditions: (see note) Past Relevant Surgical Conditions: (see note) Employment: Unemployed Recreation / Current Exercise: starting to use treadmill at [employer] Intake Information: Prescription present Previous Treatment: Over Active Bladder Medication Falls Interview: No positive findings with falls interview Aquatic Screen: No Pain: Pain Pain Level: 0 Post Treatment Pain Post Treatment Pain Level: 0 PROMIS Scales Higher is Better 11/14/2022 Phys Func - Score 35 (moderate dysfunction) Phys Func - Percentile 7 % Self-Eff Symptom - Score 36 (Low) Self-Eff Symptom - Percentile 8 % T-scores: mean of general population = 50. 5 points is clinically meaningfully difference Percentiles provide an indication of how the patient's score ranks in relation to the general population. Higher percentile rankings indicate better function/quality of life. 50th percentile is the average of the general population and indicates half of respondents had a worse score. OBJECTIVE MEASURES WITH LEVEL OF FUNCTION: Pelvic Floor Pregnancies: 3 Births: 2 (1 set of twins, 1 single) : 1 Vaginal Delivery: (1) Pain with penetration: Not sexually active Urinary/Bowel History : Urinary History, Bowel History Difficulty starting stream: No slow or intermittent stream: Sometimes Incomplete emptying: Sometimes Stress Incontinence: Cough/sneeze, Position change Urgency: Yes Frequency of Urgency Episodes: multiple times a day Frequency of Leaks Secondary to Urge: multiple times a day Nocturia (times per night): (2-3) Daytime Frequency (hours): 1-1.5 Bladder Padding: Changes padding 4-5x/day Fluid Intake: Water, Coffee, Other beverage, Pop/Diet Pop (8 oz measurements) Water : 0-1 Coffee: 2-4 Pop/Diet Pop : 2 Other beverage : 2-3 (carbonate (more content not included)...[facility]08-15-[facility] History of Present illness Narrative* Carolin Dumont, PT - 11/14/2022 7:53 AM EDT Episode Visit Count: 1 Therapist That Will Accept/Oversee The Plan Of Care: Carolin Macdonaldell Rodriguez Start of Care Date: 11/14/22 Onset Date: 11/14/02 Plan of Care Certification Date: 11/14/22 Next Certification Due Date: 01/13/23 Patient Identified by Name and Date of : Yes REHABILITATION AND SPORTS THERAPY PHYSICAL THERAPY EVALUATION PLAN OF CARE: Assessment: Daphney Benson presents with chief complaint of mixed urinary incontinence that interferes with bladder function . She presents with impairments in decreased BLE strength; impaired bladder function. Pelvic floor muscle assessment deferred this date, to be performed next visit. PROMIS (Patient-Reported Outcomes Measurement Information System) scores were reviewed and physical function domain and self efficacy domain identified as a rehabilitation concern. Prognosis for therapy is Fair due to: clinical presentation, chronic nature of impairments . She will benefit from skilled the rapy services to meet the goals established for this plan of care as noted below. Goals for Episode of Care: created on 11/14/22 through 01/13/23 [place] in home exercise program. Patient will demonstrate increase in BLE strength to 5/5 during manual muscle testing in order to improve function for prior functional tasks. Patient to increase strength of pelvic floor to Power: at least 3/5 in order to improve bladder control.-TBA Patient to correctly isolate pelvic floor muscles without compensatory patterns to improve bladder control.-TBA Patient to urinate every 2-4 hours during the daytime to demonstrate normalized bladder function. Patient reports nocturia less than or equal to 1 time to demonstrate normalized bladder function. Patient reports at least 75% less bladder urgency to avoid incontinent episodes. Patient reports at least 75% improvement in bladder leaks while coughing/sneezing compared to evaluation in order to increase bladder function in activities of daily living. Patient reports increased ability to fully empty bladder at least 75% of the time to normalize bladder function. Patient Goals: improve bladder function Planned Interventions, Frequency, and Duration: Current Frequency: 1x/week Duration: 4 weeks (reassess at 4 weeks and progress as indicated) Total Number of Visits Planned: 4 Planned Treatment Interventions: Therapeutic exercise (53169), Manual therapy (26965), Self-jail management (00578), Patient/Family/Caregiver Education PLAN FOR NEXT VISIT: review bladder diary, PF mm assessment Patient demonstrates good understanding of plan of care and treatment. The above goals and plan of care were discussed and agreed upon by patient/family. SUBJECTIVE: Pt reports UI began about 20 years ago. Patient Goals: improve bladder function Functional Limitations: bladder function Prior Level of Function: Independent without limitations Relevant History Past Relevant Medical Conditions: (see note) Past Relevant Surgical Conditions: (see note) Employment: Unemployed Recreation / Current Exercise: starting to use treadmill at [employer] Intake Information: Prescription present Previous Treatment: Over Active Bladder Medication Falls Interview: No positive findings with falls interview Aquatic Screen: No Pain: Pain Pain Level: 0 Post Treatment Pain Post Treatment Pain Level: 0 PROMIS Scales Higher is Better 11/14/2022 Phys Func - Score 35 (moderate dysfunction) Phys Func - Percentile 7 % Self-Eff Symptom - Score 36 (Low) Self-Eff Symptom - Percentile 8 % T-scores: mean of general population = 50. 5 points is clinically meaningfully difference Percentiles provide an indication of how the patient's score ranks in relation to the general population. Higher percentile rankings indicate better function/quality of life. 50th percentile is the average of the general population and indicates half of respondents had a worse score. OBJECTIVE MEASURES WITH LEVEL OF FUNCTION: Pelvic Floor Pregnancies: 3 Births: 2 (1 set of twins, 1 single) : 1 Vaginal Delivery: (1) Pain with penetration: Not sexually active Urinary/Bowel History : Urinary History, Bowel History Difficulty starting stream: No slow or intermittent stream: Sometimes Incomplete emptying: Sometimes Stress Incontinence: Cough/sneeze, Position change Urgency: Yes Frequency of Urgency Episodes: multiple times a day Frequency of Leaks Secondary to Urge: multiple times a day Nocturia (times per night): (2-3) Daytime Frequency (hours): 1-1.5 Bladder Padding: Changes padding 4-5x/day Fluid Intake: Water, Coffee, Other beverage, Pop/Diet Pop (8 oz measurements) Water : 0-1 Coffee: 2-4 Pop/Diet Pop : 2 Other beverage : 2-3 (carbonated water) Difficulty evacuating / Excessive Straining: No Incomplete emptying: No Bowel Movement Frequency: 1x/day Fecal incontinence: No Pelvic Floor Muscle Assessment Consent for pelvic assessment/testing and treatment: (PF mm assessment deferred this date.) LE AROM R LE AROM: WFL L LE AROM: WFL LE Strength Trunk Strength: Lower Abdominals: 4/5 R LE Strength: 4/5 grossly L LE Strength: 4/5 grossly Education: Education Learning Preferences: Demonstration, Explanation, Performance, Printed Materials Barriers: None Learning/educational needs: Home exercise program, Plan of Care Education Provided: Yes, see treatment interventions for education provided Education Provided To: Patient Education Mode/Type: Demonstration, Explanation/Discussion, Literature/Printed Materials, Performance Response to Education/Teach Back: States/Identifies, Return Demonstration TREATMENT: PT Treatment Interventions: Therapeutic Exercise, Self-Custodial Management Evaluation Therapeutic Exercise: 1: *isometric hip adduction, 2x10 2: *hooklying hip abduction, L3 TB, 2x10 Skilled Intervention: Patient was educated in proper exercise technique and purpose for exercises. Reviewed and educated patient on additions/changes for home exercise program as above (*). Skilled judgment was provided in selection of appropriate interventions. Provided written instruction for home exercise program to facilitate proper performance and compliance. Self-Custodial Management: 1: Reviewed pelvic floor anatomy and function with 3D pelvic model 2: Reviewed typical vs dysfunctional bladder health 3: Reviewed bladder irritants, importance of water intake 4: Reviewed urinary urgency suppression techniques 5: Reviewed toileting techniques to fully empty bladder without straining 6: Reviewed strategies to improve urinary frequency, nocturia 7: *bladder diary: reviewed purpose and instructions Skilled Intervention: Skilled judgment in the selection of proper modification for activity of daily living/home management based on clinical presentation, deficits, and needs. Provided written instruction for activities of daily living techniques to facilitate proper performance and compliance. Billing * Evaluation Low Complexity: 1 Unit Therapeutic Exercise Treatment Minutes: 4 Self-Care/Home Management Treatment Minutes: 21 Total Treatment Time Minutes (timed/untimed): 50 Session Start Time : 752 Session Stop Time : 842 Carolin Rodriguez PT [facility]23 NoteHNO ID: [id number] Author: Otilia Disla APRN.[employer] Service: ? Author Type: Nurse Practitioner Type: Progress Notes Filed: 12/05/2022 11:02 AM Note Text: Daphney Benson is a 62 year old female who presents today for evaluation of Patient presents with: Consult Urinary Incontinence CHIEF COMPLAINT AND HISTORY OF PRESENT ILLNESS CC: leakage 62 year old female with a history of ashtma, HTN, DM presents today for inability to hold urine and she is not able to feel half of her bladder, 3-4 uti's over the last few months. +leakage with coughing laughing. She is currently taking cefdinir 300 mg and has 2 doses Typical symptoms of uti are frequency, leakage. DTF hourly, NTF 1-2 Denies straining to void Denies gross hematuria Not taking anything for UTI prevention Currently taking mirabegron 50 mg for the past 4 months one set of twins second was a miscarriage Denies vaginal bulge Pelvic 3 months ago Fluid intake 3-4 cups coffee per day water Past Urological History: Stones:no Surgery:no Tumors:no Infections:yes: currently VITALS: Height 160 cm (5' 3), weight 117.4 kg (258 lb 14.4 oz). ALLERGIES: Isoniazid MEDICATIONS: Current Outpatient Medications Medication Sig Dispense Refill buPROPion XL (WELLBUTRIN XL) 150 mg 24 hr tablet cefdinir (OMNICEF) 300 mg capsule furosemide (LASIX) 20 mg tablet glimepiride (AMARYL) 2 mg tablet MYRBETRIQ 50 mg Tb24 DULERA 200-5 mcg/actuation inhaler loratadine (CLARITIN) 10 mg tablet hydrOXYzine pamoate (VISTARIL) 50 mg capsule traZODone (DESYREL) 50 mg tablet sertraline (ZOLOFT) 100 mg tablet metFORMIN (GLUCOPHAGE) 1,000 mg tablet Take 1,000 mg by mouth daily with breakfast. polyethylene glycol 3350 (MIRALAX) 17 gram/dose powder Take 17 g by mouth once daily. fluticasone (FLONASE) 50 mcg/actuation nasal spray Use 1 [place] in each nostril once daily. losartan (COZAAR) 25 mg tablet Take 25 mg by mouth once daily. cholecalciferol, Vitamin D3, (VITAMIN D3) 1,250 mcg (50,000 unit) cap capsule Take 50,000 Units by mouth every Sunday. 2 omeprazole (PRILOSEC) 20 mg capsule Take 1 capsule by mouth once daily. 0 montelukast (SINGULAIR) 10 mg tablet Take 1 tablet by mouth once daily. 2 Hydrochlorothiazide 12.5 mg capsule Take 1 capsule by mouth once daily. 90 capsule 1 naproxen (NAPROSYN) 500 mg tablet Take 1 tablet by mouth twice daily as needed (pain/inflammation, take with food.). 180 tablet 3 VITAMIN B COMPLEX (B COMPLEX 1 ORAL) Take 1 tablet by mouth once daily. multivitamin tablet Take 1 tablet by mouth once daily. atorvastatin (LIPITOR) 20 mg tablet metFORMIN (GLUCOPHAGE) 500 mg tablet Take 250 mg by mouth daily with dinner. In addition to 500mg in the morning ubidecarenone Q-10 (COENZYME Q-10) 10 mg cap Take 10 mg by mouth once daily. (Patient not taking: Reported on 11/08/2022) sertraline (ZOLOFT) 50 mg tablet Take 1 tablet by mouth once daily. 2 metFORMIN (GLUCOPHAGE) 500 mg tablet Take 1 tablet by mouth once daily. In addition to 250mg in the evening 2 budesonide-formoterol (SYMBICORT) 160-4.5 mcg/actuation inhaler Inhale 2 Puffs as instructed twice daily. (Patient not taking: Reported on 11/08/2022) 6 Inhaler 1 albuterol HFA (VENTOLIN HFA) 90 mcg/actuation inhaler Inhale 2 Puffs as instructed every 4 hours as needed (FOR COUGH OR WHEEZE). (Patient not taking: Reported on 11/08/2022) 3 Inhaler 1 ketoconazole (NIZORAL) 2 % cream Apply 1 application to affected area twice daily. (Patient not taking: Reported on 11/08/2022) 60 g 1 No current facility-administered medications for this visit. 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 MRSA. hospitalized for abdominal abscesses PAST SURGICAL HISTORY OF c/s TOTAL ABDOM HYSTERECTOMY 2003 abnormal bleeding FAMILY HISTORY: FAMILY HISTORY Problem Relation Age of Onset Colon Cancer Father Prostate Cancer Father Prostate Cancer Brother Alzheimer's Disease Mother Heart Mother All histories reviewed on this date 11/08 (more content not included)...[facility]08-09-2023 History of Present illness Narrative* Otilia Disla, AERONAUTICAL ENGINEERING TECHNOLOGIST.[employer] - 11/08/2022 3:25 PM EDT Daphney Benson is a 62 year old female who presents today for evaluation of Patient presents with: Consult Urinary Incontinence CHIEF COMPLAINT & HISTORY OF PRESENT ILLNESS CC: leakage 62 year old female with a history of ashtma, HTN, DM presents today for inability to hold urine and she is not able to feel half of her bladder, 3-4 uti's over the last few months. +leakage with coughing laughing. She is currently taking cefdinir 300 mg and has 2 doses Typical symptoms of uti are frequency, leakage. DTF hourly, NTF 1-2 Denies straining to void Denies gross hematuria Not taking anything for UTI prevention Currently taking mirabegron 50 mg for the past 4 months one set of twins second was a miscarriage Denies vaginal bulge Pelvic 3 months ago Fluid intake 3-4 cups coffee per day water Past Urological History: Stones:no Surgery:no Tumors:no Infections:yes: currently VITALS: Height 160 cm (5' 3), weight 117.4 kg (258 lb 14.4 oz). ALLERGIES: Isoniazid MEDICATIONS: Current Outpatient Medications Medication Sig Dispense Refill buPROPion XL (WELLBUTRIN XL) 150 mg 24 hr tablet cefdinir (OMNICEF) 300 mg capsule furosemide (LASIX) 20 mg tablet glimepiride (AMARYL) 2 mg tablet MYRBETRIQ 50 mg Tb24 DULERA 200-5 mcg/actuation inhaler loratadine (CLARITIN) 10 mg tablet hydrOXYzine pamoate (VISTARIL) 50 mg capsule traZODone (DESYREL) 50 mg tablet sertraline (ZOLOFT) 100 mg tablet metFORMIN (GLUCOPHAGE) 1,000 mg tablet Take 1,000 mg by mouth daily with breakfast. polyethylene glycol 3350 (MIRALAX) 17 gram/dose powder Take 17 g by mouth once daily. fluticasone (FLONASE) 50 mcg/actuation nasal spray Use 1 [place] in each nostril once daily. losartan (COZAAR) 25 mg tablet Take 25 mg by mouth once daily. cholecalciferol, Vitamin D3, (VITAMIN D3) 1,250 mcg (50,000 unit) cap capsule Take 50,000 Units by mouth every Sunday. 2 omeprazole (PRILOSEC) 20 mg capsule Take 1 capsule by mouth once daily. 0 montelukast (SINGULAIR) 10 mg tablet Take 1 tablet by mouth once daily. 2 Hydrochlorothiazide 12.5 mg capsule Take 1 capsule by mouth once daily. 90 capsule 1 naproxen (NAPROSYN) 500 mg tablet Take 1 tablet by mouth twice daily as needed (pain/inflammation, take with food.). 180 tablet 3 VITAMIN B COMPLEX (B COMPLEX 1 ORAL) Take 1 tablet by mouth once daily. multivitamin tablet Take 1 tablet by mouth once daily. atorvastatin (LIPITOR) 20 mg tablet metFORMIN (GLUCOPHAGE) 500 mg tablet Take 250 mg by mouth daily with dinner. In addition to 500mg in the morning ubidecarenone Q-10 (COENZYME Q-10) 10 mg cap Take 10 mg by mouth once daily. (Patient not taking: Reported on 11/08/2022) sertraline (ZOLOFT) 50 mg tablet Take 1 tablet by mouth once daily. 2 metFORMIN (GLUCOPHAGE) 500 mg tablet Take 1 tablet by mouth once daily. In addition to 250mg in theevening 2 budesonide-formoterol (SYMBICORT) 160-4.5 mcg/actuation inhaler Inhale 2 Puffs as instructed twice daily. (Patient not taking: Reported on 11/08/2022) 6 Inhaler 1 albuterol HFA (VENTOLIN HFA) 90 mcg/actuation inhaler Inhale 2 Puffs as instructed every 4 hours asneeded (FOR COUGH OR WHEEZE). (Patient not taking: Reported on 11/08/2022) 3 Inhaler 1 ketoconazole (NIZORAL) 2 % cream Apply 1 application to affected area twice daily. (Patient not taking: Reported on 11/08/2022) 60 g 1 No current facility-administered medications for this visit. 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 MRSA. hospitalized for abdominal abscesses PAST SURGICAL HISTORY OF c/s TOTAL ABDOM HYSTERECTOMY 2003 abnormal bleeding FAMILY HISTORY: FAMILY HISTORY Problem Relation Age of Onset Colon Cancer Father Prostate Cancer Father Prostate Cancer Brother Alzheimer's Disease Mother Heart Mother All histories reviewed on this date 11/08/2022: Yes REVIEW OF SYSTEMS: CONSTITUTIONAL: Patient reports no recent fever or weight loss CARDIOVASCULAR: Negative for chest pain. RESPIRATORY: Negative for cough, hemoptysis, wheezing, COPD, dyspnea or shortness of breath GI: No nausea, vomiting, or diarrhea MUSCULOSKELETAL: denies back pain or muscular weakness All other systems reviewed and are negative other than HPI. PHYSICAL EXAM: constitutional: appears healthy in no acute distress, obese respiratory: normal respiratory motion gi: abdomen soft, non-tender without masses, hernia or organomegaly gu: bladder: not palpable, no tenderness. no cvat Neuro: Gait normal. Sensation grossly intact. RADIOLOGY REPORTS REVIEWED: Yes LAB RESULTS REVIEWED: Yes Component Latest Ref Rng & Units 11/08/2022 GLUCOSE UA (POCT) Negative mg/dL Negative BILIRUBIN UA (POCT) Negative Negative KETONE UA (POCT) Negative mg/dL Trace SPECIFIC GRAVITY UA (POCT) 1.005 - 1.030 1.020 HEMOGLOBIN/BLOOD UA (POCT) Negative Negative PH UA (POCT) 4.5 - 8.0 6.5 PROTEIN UA (POCT) Negative mg/dL Negative UROBILINOGEN UA (POCT) Normal E.U./dL 1.0 NITRITE UA (POCT) Negative Negative LEUKOCYTES UA (POCT) Negative Trace (A) COLOR UA (POCT) Yellow CLARITY UA (POCT) Clear IMAGING STUDIES INDEPENDENTLY REVIEWED: No OLD RECORDS REVIEWED: Yes: Extensive: No ASSESSMENT/PLAN: 1. Urgency of urination - ICD9: 788.63, ICD10: R39.15 (primary diagnosis) -continue with mirabegron 50 mg po daily -PVR 0 cc -decrease caffeine intake -start PFPT - BLADDER SCAN - CONSULT TO PHYSICAL THERAPY 2. HOOD (stress urinary incontinence, female) - ICD9: 625.6, ICD10: N39.3 -kegels -start PFPT - CONSULT TO PHYSICAL THERAPY 3. Recurrent UTI - ICD9: 599.0, ICD10: N39.0 -requested urine culture results from PCP -start topical estrace -strict hygiene -complete course of cefdinir Patient is instructed to schedule a follow up in 3 months. Otilia Disla APRN.CATTLE RANCHER [facility] Nurse Note* Beth Costa MA - 11/08/2022 3:05 PM EDT Patient had bladderscan in office and had a PVR of 0ml. documented in [facility]23 Discharge summary Author Suzette Salinas [facility] October 12, 2022 5:09pm Note Date/Time October 12, 2022 5:09 pm [facility] Physical Therapy [facility] [address] [place] [address]. [address] [place] [address] / REHABILITATION SERVICES DISCHARGE SUMMARY MR#: [id number] Acct: [id number] Name: DAPHNEY BENSON Rep #: [id number] : 1960 62 From: Suzette WILSON T Referring Dr.: Dr. Silverio Street MD Status: REG R Insurance: [facility] SELF PAY INSURANCE Patient Information Patient Information: DAPHNEY BENSON was seen in my office for initial evaluation on 07/18/22. The following Plan of Care was established for this patient: POC Established Initial Frequency: 2x /Week Initial Duration: 4 Weeks Anticipated Interventions Patient/Client Instruction: Educate patient on: Benefits of Fitness Program Therapeutic Exercise to Include: Strength training, Endurance training, Coordination, Agility training, Body mechanics, Postural training, Flexibilty training, Gait and locomotor training, Neuromotor development, Passive ROM, Active ROM, Dynamic Lumbar Stabilization and Scapular Strength/Stabilization For the Purpose of:: To improve muscle performance and motor function TENS: Yes Cryotherapy (ice pack, ice massage): Yes Thermo therapy (hot pack): Yes Ultrasound (thermal/non thermal): Yes Last Seen Last Seen: This patient was last seen in our office . Pertinent comments regarding their Physical therapy will appear below: Pt appropriate to be d/c- had surgery At this point I will be discontinuing this patient from physical therapy. I would be happy to see this patient again in the future if found appropriate by the physician. Thank you! Suzette Salinas, DPT Balance/Gait/Functional tests Balance/Special Test Scores Quick DASH Score: 47.7250 <Electronically signed by Suzette Salinas DPT> 10/12/22 2250 CC: Dr. Silverio Street MD; [facility] ~ ELR Signed [facility] Work Phone: 1(365) 725-630806-28-2023 Discharge summary [address] Silverio Street [facility] September 27, 2022 9:06am Note Date/Time September 27, 2022 9:04 am [facility] Medical Records Department [address] [place] [address] Instructions for Home/Discharge Instructions 09/27/22 0903 MR#: [id number] Acct: [id number] Name: DAPHNEY BENSON Rep #:[id number] : 1960 62 From: Silverio Street MD PCP: [facility] St atus:REG SDC Discharge Instructions Diet Discharge Diet: No restrictions Activity Keep extremity elevated above heart level: Operative Extremity Additional Activity Instructions:: pendulums 4x/day shoulder Dressing / Incision Call your doctor if your incision/area has: Continuous Slow Oozing, Sudden Increased Bleeding, Increased Pain/ Swelling, Increased Redness, Foul Smelling Discharge and Swelling at the incision site Remove Dressing in: leave in place till F/U Follow Up Care Please Follow Up With: Silverio Street MD When: 2 days Test Results: Test results from this visit will be discussed in further detail at your follow- up appointment, if applicable. Discharge Plan Admission Attending Provider: Silverio Street [facility] Consulting Providers: Yvrose Carreon PROCTOLOGIST Discharge Orders/Prescriptions Prescriptions: New oxycodone-acetaminophen [Percocet] 5-325 mg tablet 1 tab PO Q6H MDD 6 PRN (Reason: pain) 5 Days Qty: 30 0RF No Action Dulera 200-5 mcg/actuation HFA aerosol inhaler 2 inh inhalation PRN PRN (Reason: Wheezing) Patient Comments: INHALE 2 PUFFS BY MOUTH TWICE DAILY fluticasone propionate 50 mcg/actuation spray,suspension 2 spray intranasal PRN PRN (Reason: Wheezing) naproxen sodium 220 mg tablet 220 mg PO BID PRN (Reason: Pain) hydroxyzine pamoate 50 mg capsule 50 mg PO BID Brain health 1 tablet PO DAILY ergocalciferol (vitamin D2) 1,250 mcg (50,000 unit) capsule 1,250 mcg PO QWEEK Patient Comments: TAKE 1 CAPSULE BY MOUTH ONCE A WEEK aspirin [Adult Low Dose Aspirin] 81 mg tablet,delayed release (DR/EC) 81 mg PO DAILY Myrbetriq 25 mg tablet extended release 24 hr 100 mg PO DAILY glimepiride 2 mg tablet 2 mg PO DAILY Patient Comments: TAKE 1 TABLET BY MOUTH ONCE DAILY IN THE MORNING furosemide 20 mg tablet 20 mg PO DAILY losartan 50 MG tablet 50 mg PO DAILY sertraline 100 MG tablet 150 mg PO DAILY montelukast 10 MG tablet 10 mg PO DAILY multivitamin 1 EACH tablet 1 tab PO DAILY ferrous sulfate 325 MG tablet 325 mg PO DAILY metformin 1,000 MG tablet 1,000 mg PO BID omeprazole 20 MG capsule 20 mg PO DAILY coenzyme [id number] E 1 EACH capsule 1 cap PO DAILY hydrocodone-acetaminophen [hydrocodone-acetaminophen] 5-325 mg tablet 1 tab PO Q6H PRN PRN (Reason: Pain) 2 Days Qty: 8 0RF (DME) compression socks, large Misc See Rx Instructions .Route Qty: 2 0RF Rx Instructions: As directed (DME) Relief Knee Close Toe Stocking Misc See Rx Instructions .ROUTE .COMPLEX Qty: 2 0RF Rx Instructions: Keep on during day, remove at night trazodone 50 mg tablet 50 mg PO QHS polyethylene glycol 3350 [Miralax] 17 gram Powder In Packet 17 g PO DAILY sennosides-docusate sodium [Senna Laxative-Stool Softener] 8.6-50 mg Tablet 1 tab-cap PO QHS vitamin B complex Tablet 1 tab PO DAILY bupropion HCl 150 mg tablet extended release 24 hr 150 mg PO DAILY Patient Comments: TAKE 1 TABLET BY MOUTH ONCE DAILY IN THE MORNING loratadine 10 mg Capsule 10 mg PO DAILY turmeric 400 mg Capsule 400 mg PO DAILY atorvastatin 20 mg tablet 20 mg PO QHS Qty: 30 12RF Referrals / Follow Up: Silverio Street MD [Med Staff - Active Staff] - [facility] [Primary Care Provider] - Disposition Disposition (needs filled in before D/C Order can be placed): Home, Self Care 09/27/22 0906<Electronically signed by Silverio Street MD>Silverio Street MD CC: PROCTOLOGIST-Shannan Carreon; [facility] ~ Signed [facility] Work Phone: 1(161) 602-240106-28-2023 Procedure [facility] 08-28-[address] Gutierrez [facility] August 28, 2022 12:37pm Note Date/Time August 28, 2022 11:09 am [facility] Medical Records Department [address] [place] [address] Emergency Department Summary 08/28/22 MR#: [id number] Acct: [id number] Name: DAPHNEY BENSON Rep #:[id number] : 1960 62 From: Moncho Cash [facility] St atus:REG ER Location: ED HPI History of Present Illness Chief Complaint: Cellulitis [facility] Medical History (Updated 08/28/22 @ 12:[address] Moncho Gutierrez, DO) Abnormal stress test Atherosclerotic heart disease of [place] coronary artery without angina pectoris Bronchitis COVID-19 Depression Depression Diabetes Essential hypertension Fracture, tibial plateau History of hypertension History of left heart catheterization (LHC) (~09/27/21) Hypertension Internal impingement of left shoulder Left rotator cuff tear Left shoulder pain MRSA (methicillin resistant staph aureus) culture positive Palpitations Primary osteoarthritis, left shoulder Type 2 diabetes mellitus Vertigo Home Medications coenzyme [id number] E 100 mg-5 unit capsule 1 cap PO DAILY SUPPLEMENT 04/14/20 [History Last Taken 04/14/20] ferrous sulfate 325 mg (65 mg iron) tablet 325 mg PO DAILY SUPPLEMENT 04/14/20 [History Last Taken 04/14/20] hydrochlorothiazide 25 mg tablet 25 mg PO DAILY 04/14/20 [History Last Taken 04/14/20] losartan 50 mg tablet 50 mg PO DAILY 04/14/20 [History Last Taken 09/27/21] metformin 1,000 mg tablet 1,000 mg PO BID DM 04/14/20 [History Last Taken 04/14/20] montelukast 10 mg tablet 10 mg PO DAILY 04/14/20 [History Last Taken 04/14/20] multivitamin 1 tab PO DAILY SUPPLEMENT 04/14/20 [History Last Taken 04/14/20] omeprazole 20 mg capsule,delayed release 20 mg PO DAILY GERD 04/14/20 [History Last Taken 04/13/20] sertraline 100 mg tablet 100 mg PO DAILY 04/14/20 [History Last Taken 04/14/20] vitamin B complex-vitamin C-folic acid 0.8 mg tablet 0.8 mg PO DAILY SUPPLEMENT 04/14/20 [History Last Taken 04/14/20] fluticasone propionate 50 mcg/actuation nasal spray,suspension 2 spray intranasal PRN PRN Wheezing 08/03/21 [History Last Taken Unknown] mometasone-formoterol HFA 200 mcg-5 mcg/actuation aerosol inhaler 2 inh inhalation PRN PRN Wheezing 08/03/21 [History Last Taken Unknown] Brain health 1 tablet PO DAILY 08/11/21 [History Last Taken Unknown] ergocalciferol (vitamin D2) 1,250 mcg (50,000 unit) capsule 1,250 mcg PO QWEEK 08/11/21 [History Last Taken Unknown] hydroxyzine pamoate 50 mg capsule 50 mg PO BID 08/11/21 [History Last Taken Unknown] naproxen sodium 220 mg tablet 220 mg PO BID PRN Pain 08/11/21 [History Last Taken Unknown] aspirin 81 mg tablet,delayed release (Adult Low Dose Aspirin) 81 mg PO DAILY 09/13/21 [History Last Taken 09/27/21] atorvastatin 20 mg tablet 20 mg PO QHS #30 tabs 09/27/21 [Rx Last Taken Unknown] hydrocodone-acetaminophen 5-325mg 5mg-325mg 1 tab PO Q6H PRN PRN Pain 2 days #8 TABLETS 01/13/22 [Rx Last Taken Unknown] mirabegron 25 mg tablet,extended release 24 hr (Myrbetriq) 25 mg PO DAILY 02/10/22 [History Last Taken Unknown] glimepiride 2 mg tablet ea PO 05/24/22 [History Last Taken Unknown] lorazepam 1 mg tablet 1 mg PO DAILY PRN pre MRI #1 TAB 08/11/22 [Rx Last Taken Unknown] benzonatate 100 mg capsule ea PO 08/18/22 [History Last Taken Unknown] prednisone 20 mg tablet ea PO 08/18/22 [History Last Taken Unknown] cephalexin 500 mg capsule 500 mg PO TID #21 caps 08/28/22 [Rx Last Taken Unknown] sulfamethoxazole 800 mg-trimethoprim 160 mg tablet (Bactrim DS) 1 tab PO BID 7 days #14 tabs 08/28/22 [Rx Last Taken Unknown] Allergy/AdvReac Type Severity Reaction Status Date / Time isoniazid Allergy Other Verified 08/28/22 11:00 Family History Brother Atrial fibrillation Grandfather Myocardial infarction Grandmother Myocardial infarction Mother Dementia CAD (coronary artery disease) Hypertension Father COPD (chronic obstructive pulmonary disease) Hypertension Cancer Prostate, Colon, Surgical History H/O: hysterectomy Hx of right knee surgery Social History household members: none current occupational exposures/hazards: No history of recent travel: No Smoking Status: Current every day smoker tobacco type: cigarettes alcohol intake: current alcohol intake frequency: holidays/special occasions only substance use type: does not use caffeine: Yes Type: coffee Number of servings: 5 EXAM Physical Exam Const Vital Signs: 08/28/22 11:00 08/28/22 11:36 Temperature 97.4 F L Temperature Source Temporal Pulse Rate 95 Respiratory Rate 18 Respiratory Effort Normal Respiratory Pattern Normal Blood Pressure 127/79 H Blood Pressure Mean 95 Pulse Ox 94 Oxygen Delivery Method Room Air [facility] [place] Medical decision making narrative: HISTORY OF PRESENT ILLNESS: 62-year-old female here with bilateral skin redness. She is concerned she has another episode of cellulitis. States her blood sugars been running in the low 100s. Denies any fever, vomiting, fatigue. REVIEW OF SYSTEMS: Pertinent positives: Skin redness Pertinent negatives: Syncope, fatigue, fever, vomiting PHYSICAL EXAM: Nursing triage notes reviewed, Vital signs reviewed Constitutional: please see mdm Extremities: No edema, compartments are soft Neuro: Intact sensation L1-S1 dermatomal distributions. Intact 5/5 strength in hip flexion (T12-L3). Knee extension (L2-L4). Ankle dorsiflexion (L4-L5). Ankle plantar flexion (S1). Great toe extension (L5). 2+ patellar and AchillesDTRs. Skin: Confluent erythema noted to the left anterior tibia going midway up the tibia, there is about confluent erythema noted in the right medial tibia, no crepitus or bullae fluctuance or induration noted. MEDICAL DECISION MAKING: Chief Complaint: External records reviewed: Seen on 08/11/2022 for left leg cellulitis. Prescribed Keflex for 10 days Factors affecting care: History of type 2 diabetes, obesity Social determinants of health: Never smoker History obtained from others: None Consults: ALL IMAGES HAVE BEEN PERSONALLY REVIEWED AND INTERPRETED BY MYSELF. [facility] Narrative: The patient was hemodynamically stable, afebrile, nontoxic-appearing. Exam consistent with bilateral lower extremity cellulitis. I obtained labs to ascertain that the patient had systemic inflammation. I gave 1 dose of IV vancomycin for MRSA coverage and gram-positive coverage. Labs without evidence of significant systemic inflammation, no evidence of significant anion gap to suggest endorgan hypoperfusion, noted hyperglycemia likely exacerbated by ongoing infection. Patient remained hemodynamically stable. She was offered hospitalization given her age, history of diabetes, relative immunocompromise state and for IV antibiotics. Patient was alert and orient x3 and had capacity to make all medical decisions and chose to be discharged home with oral antibiotics. She was prescribed Keflex and Bactrim for strep and MRSA coverage. The patient was appropriate for discharge home. There is no evidence of necrotizing fasciitis on my exam. Total critical care time today provided was at least 0 minutes. This excludes separately billable procedures. There was a high probability of clinically significant/life threatening deterioration in the patient's condition which required my urgent intervention. Shared decision making: I will have a discussion with the patient and or visitors regarding risk/benefits of further testing or admission. They will be made aware of of the risk/benefits inherent in this decision they will be given the opportunity to voice understanding. Lab Data Attestation: I reviewed the patient's lab results. Lab results narrative: CBC without leukocytosis, severe anemia, no thrombocytopenia. BMP without evidence of significant electrolyte abnormalities, no anion gap, no acute kidney injury. Labs: Laboratory Results - last 24 hr 08/28/22 08/28/22 11:50 11:50 WBC 8.6 RBC 4.66 Hgb 12.7 Hct 38.3 MCV 82.2 MCH 27.3 MCHC 33.2 RDW Std Deviation 42.6 RDW Coeff of Christina 14.5 Plt Count 274 MPV 9.7 Immature Gran % (Auto) 0.800 Neut % (Auto) 71.9 H Lymph % (Auto) 18.9 L Mckenzie % (Auto) 4.9 Eos % (Auto) 2.8 Baso % (Auto) 0.7 Absolute Neuts (auto) 6.2 Absolute Lymphs (auto) 1.62 Nucleated RBC % 0 Sodium 136 Potassium 3.8 Chloride 99 Carbon Dioxide 28.0 Anion Gap 9 BUN 14 Creatinine 0.81 Estim Creat Clear Calc 55.49 Est GFR (MDRD) Af Amer 92 Est GFR (MDRD) Non-Af 76 BUN/Creatinine Ratio 17.3 Glucose 242 H Calcium 9.2 Discharge Plan Triage Chief Complaint: Cellulitis ED Provider: Moncho Gutierrez Dx/Rx/DC Orders Clinical Impression: Cellulitis Instructions: Cellulitis Dc Prescriptions: New cephalexin 500 mg capsule 500 mg PO TID Qty: 21 0RF sulfamethoxazole-trimethoprim [Bactrim DS] 800-160 mg tablet 1 tab PO BID 7 Days Qty: 14 0RF No Action Dulera 200-5 mcg/actuation HFA aerosol inhaler 2 inh inhalation PRN PRN (Reason: Wheezing) Label Comments: INHALE 2 PUFFS BY MOUTH TWICE DAILY fluticasone propionate 50 mcg/actuation spray,suspension 2 spray intranasal PRN PRN (Reason: Wheezing) naproxen sodium 220 mg tablet 220 mg PO BID PRN (Reason: Pain) hydroxyzine pamoate 50 mg capsule 50 mg PO BID Brain health 1 tablet PO DAILY ergocalciferol (vitamin D2) 1,250 mcg (50,000 unit) capsule 1,250 mcg PO QWEEK Label Comments: TAKE 1 CAPSULE BY MOUTH ONCE A WEEK aspirin [Adult Low Dose Aspirin] 81 mg tablet,delayed release (DR/EC) 81 mg PO DAILY Myrbetriq 25 mg tablet extended release 24 hr 25 mg PO DAILY glimepiride 2 mg tablet PO Label Comments: TAKE 1 TABLET BY MOUTH ONCE DAILY IN THE MORNING prednisone 20 mg tablet PO Label Comments: TAKE 2 TABLETS BY MOUTH ONCE DAILY FOR 5 DAYS benzonatate 100 mg capsule PO Label Comments: TAKE 1 CAPSULE BY MOUTH TWICE DAILY NEEDED FOR COUGH losartan 50 MG tablet 50 mg PO DAILY sertraline 100 MG tablet 100 mg PO DAILY montelukast 10 MG tablet 10 mg PO DAILY B complex-vitamin C-folic acid 0.8 MG tablet 0.8 mg PO DAILY hydrochlorothiazide 25 MG tablet 25 mg PO DAILY multivitamin 1 EACH tablet 1 tab PO DAILY ferrous sulfate 325 MG tablet 325 mg PO DAILY metformin 1,000 MG tablet 1,000 mg PO BID omeprazole 20 MG capsule 20 mg PO DAILY coenzyme [id number] E 1 EACH capsule 1 cap PO DAILY hydrocodone-acetaminophen [hydrocodone-acetaminophen] 5-325 mg tablet 1 tab PO Q6H PRN PRN (Reason: Pain) 2 Days Qty: 8 0RF atorvastatin 20 mg tablet 20 mg PO QHS Qty: 30 12RF lorazepam 1 mg tablet 1 mg PO DAILY MDD 1 PRN (Reason: pre MRI) Qty: 1 0RF Primary Care Provider: Alayna Schrader Referrals: Alayna Schrader [Primary Care Provider] - Activity Restrictions/Additional Instructions: Thank you for trusting us with your care today! Please take Tylenol (2 pills, 650 mg), ibuprofen (2 pills, 400 mg) every 6 hoursas needed for pain and fever control. Please take antibiotics as prescribed. Please return to the emergency department if your symptoms change or worsen. Specifically if you develop blisters, pain that is worse and not improved after antibiotics. If you cannot tolerate antibiotics by mouth. Please follow with your primary care physician for further outpatient evaluationand management. Disposition Disposition: Home, Self Care What to do if you have Problems For any increased pain, shortness of breath, bleeding, nausea or vomiting, chestpain, or any unexpected problems, contact your Primary Care Provider. Call [facility] ([phone]) or report to the closest Emergency Room. Call 911 if necessary. 08/28/22 7743 <Electronically signed by Moncho Gutierrez DO> Cosigner Signature (if applicable): CC: [facility] ~ Signed [facility] Work Phone: 1(282) 792-539011-20-2020 History of Past illness Narrative* Problem Noted Date Diagnosed Date Resolved Date Hypokalemia 02/20/2020 02/24/2020 Acute urinary retention 02/20/202002/01 Elevated LFTs 02/19/2020 02/24/2020 Closed fracture of right tibial plateau 02/19/2020 02/24/2020 Elevated lipase 02/19/2020 02/24/2020 Open right ankle fracture 02/18/2020 documented as of this encounter (statuses as of 11/09/2022) [facility] Narrative* Problem Noted Date Diagnosed Date Resolved Date Hypokalemia 02/20/2020 02/24/2020 Acute urinary retention 02/20/202002/01 Elevated LFTs 02/19/2020 02/24/2020 Closed fracture of right tibial plateau 02/19/2020 02/24/2020 Elevated lipase 02/19/2020 02/24/2020 Open right ankle fracture 02/18/2020 documented as of this encounter (statuses as of 11/14/2022) [facility] Narrative* Problem Noted Date Diagnosed Date Resolved Date Hypokalemia 02/20/2020 02/24/2020 Acute urinary retention 02/20/202002/01 Elevated LFTs 02/19/2020 02/24/2020 Closed fracture of right tibial plateau 02/19/2020 02/24/2020 Elevated lipase 02/19/2020 02/24/2020 Open right ankle fracture 02/18/2020 documented as of this encounter (statuses as of 11/24/2022) [facility] Narrative* Problem Noted Date Diagnosed Date Resolved Date Hypokalemia 02/20/2020 02/24/2020 Acute urinary retention 02/20/202002/01 Elevated LFTs 02/19/2020 02/24/2020 Closed fracture of right tibial plateau 02/19/2020 02/24/2020 Elevated lipase 02/19/2020 02/24/2020 Open right ankle fracture 02/18/2020 documented as of this encounter (statuses as of 12/01/2022) [facility] Narrative* Problem Noted Date Diagnosed Date Resolved Date Hypokalemia 02/20/2020 02/24/2020 Acute urinary retention 02/20/202002/01 Elevated LFTs 02/19/2020 02/24/2020 Closed fracture of right tibial plateau 02/19/2020 02/24/2020 Elevated lipase 02/19/2020 02/24/2020 Open right ankle fracture 02/18/2020 documented as of this encounter (statuses as of 12/05/2022) [facility] Diagnosis Onset Date Resolution Status Primary osteoarthritis of knees, bilateral acute Bronchitis acute Essential hypertension acute Palpitations acute Hyperlipidemia [facility] Work Phone: Evaluation note* Diagnosis Onset Date Resolution Status Atherosclerotic heart diseas e of [place] coronary artery without angina pectoris acute Essential hypertension acute COPD (chronic obstructive pulmonary disease) chronic Hyperlipidemia chronic Obesity [facility] Work Phone: Evaluation note* Diagnosis Onset Date Resolution Status Primary osteoarthritis of knees, bilateral acute Left knee DJD acute Obesity acute Right knee DJD acute Type 2 diabetes mellitus acu te Internal impingement of left shoulder acute Left shoulder pain acute Primary osteoarthritis, left shoulder acute [facility] Work Phone: Evaluation note* Diagnosis Onset Date Resolution Status Left knee DJD acute Obesity acute Right knee DJD acute Type 2 diabetes mellitus acu te Internal impingement of left shoulder acute Left shoulder pain acute Primary osteoarthritis, left shoulder acute Left knee DJD acute Right knee DJD acute [facility] Work Phone: Evaluation note* Diagnosis Onset Date Resolution Status Left knee DJD acute Obesity acute Right knee DJD acute Type 2 diabetes mellitus acu te Internal impingement of left shoulder acute Left shoulder pain acute Primary osteoarthritis, left shoulder acute Left knee DJD acute Right knee DJD acute Internal impingement of left shoulder acute Primary osteoarthritis, left shoulder acute [facility] Work Phone: Evaluation note* Diagnosis Onset Date Resolution Status Left knee DJD acute Obesity acute Right knee DJD acute Type 2 diabetes mellitus acu te Internal impingement of left shoulder acute Left shoulder pain acute Primary osteoarthritis, left shoulder acute Left knee DJD acute Right knee DJD acute Internal impingement of left shoulder acute Primary osteoarthritis, left shoulder acute Left leg cellulitis acute Internal impingement of left shoulder acute Left rotator cuff tear acute Left shoulder pain acute [facility] Work Phone: Evaluation note* Diagnosis Onset Date Resolution Status Left knee DJD acute Obesity acute Right knee DJD acute Type 2 diabetes mellitus acu te Internal impingement of left shoulder acute Left shoulder pain acute Primary osteoarthritis, left shoulder acute Left knee DJD acute Right knee DJD acute Internal impingement of left shoulder acute Primary osteoarthritis, left shoulder acute Left leg cellulitis acute Internal impingement of left shoulder acute Left rotator cuff tear acute Left shoulder pain acute Cellulitis of both lower extremities acute Pain of left calf acute [facility] Work Phone: Evaluation note* Diagnosis Onset Date Resolution Status Left knee DJD acute Obesity acute Right knee DJD acute Type 2 diabetes mellitus acu te Internal impingement of left shoulder acute Left shoulder pain acute Primary osteoarthritis, left shoulder acute Left knee DJD acute Right knee DJD acute Internal impingement of left shoulder acute Primary osteoarthritis, left shoulder acute Left leg cellulitis acute Internal impingement of left shoulder acute Left rotator cuff tear acute Left shoulder pain acute Cellulitis of both lower extremities acute Pain of left calf acute Left rotator cuff tear acute Bilateral lower extremity edema acute [facility] Work Phone: Evaluation note* Diagnosis Onset Date Resolution Status Left knee DJD acute Right knee DJD acute Internal impingement of left shoulder acute Primary osteoarthritis, left shoulder acute Left leg cellulitis acute Internal impingement of left shoulder acute Left rotator cuff tear acute Left shoulder pain acute Cellulitis of both lower extremities acute Pain of left calf acute Left rotator cuff tear acute Bilateral lower extremity edema acute Internal impingement of left shoulder acute [facility] Work Phone: Evaluation note* Diagnosis Onset Date Resolution Status Internal impingement of left shoulder acute Primary osteoarthritis, left shoulder acute Left leg cellulitis acute Internal impingement of left shoulder acute Left rotator cuff tear acute Left shoulder pain acute Cellulitis of both lower extremities acute Pain of left calf acute Left rotator cuff tear acute Bilateral lower extremity edema acute Internal impingement of left shoulder acute Left shoulder pain acute [facility] Work Phone: Evaluation note* Diagnosis Onset Date Resolution Status Internal impingement of left shoulder acute Primary osteoarthritis, left shoulder acute Left leg cellulitis acute Internal impingement of left shoulder acute Left rotator cuff tear acute Left shoulder pain acute Cellulitis of both lower extremities acute Pain of left calf acute Left rotator cuff tear acute Bilateral lower extremity edema acute Internal impingement of left shoulder acute Left shoulder pain acute Internal impingement of left shoulder acute Right hip pain acute [facility] Work Phone: Evaluation note* Diagnosis Onset Date Resolution Status Left leg cellulitis acute Internal impingement of left shoulder acute Left rotator cuff tear acute Left shoulder pain acute Cellulitis of both lower extremities acute Pain of left calf acute Left rotator cuff tear acute Bilateral lower extremity edema acute Internal impingement of left shoulder acute Left shoulder pain acute Internal impingement of left shoulder acute Right hip pain acute [facility] Work Phone: Evaluation note* Diagnosis Urgency of urination- Primary HOOD (stress urinary incontinence, female) Female stress incontinence Recurrent UTI Urinary tract infection, site not specified [facility] Diagnosis Urgency of urination- Primary HOOD (stress urinary incontinence, female) Female stress incontinence [facility] Diagnosis Urgency of urination- Primary HOOD (stress urinary incontinence, female) Female stress incontinence [facility] Diagnosis Onset Date Resolution Status Left leg cellulitis acute Internal impingement of left shoulder acute Left rotator cuff tear acute Left shoulder pain acute Cellulitis of both lower extremities acute Pain of left calf acute Left rotator cuff tear acute Bilateral lower extremity edema acute Internal impingement of left shoulder acute Left shoulder pain acute Internal impingement of left shoulder acute Right hip pain acute Internal impingement of left shoulder acute [facility] Work Phone: Evaluation note* Diagnosis Urgency of urination- Primary HOOD (stress urinary incontinence, female) Female stress incontinence [facility] Onset Date Resolution Status Cellulitis of both lower extremities acute Pain of left calf acute Left rotator cuff tear acute Bilateral lower extremity edema acute Internal impingement of left shoulder acute Left shoulder pain acute Internal impingement of left shoulder acute Right hip pain acute Internal impingement of left shoulder acute [facility] Work Phone: Evaluation note* Diagnosis Onset Date Resolution Status Internal impingement of left shoulder acute Left shoulder pain acute Internal impingement of left shoulder acute Right hip pain acute Internal impingement of left shoulder acute Internal impingement of left shoulder acute Left rotator cuff tear acute Left shoulder pain acute Atherosclerotic heart diseas e of [place] coronary artery without angina pectoris acute Essential hypertension acute Hyperlipidemia chronic [facility] Work Phone: Evaluation note* Diagnosis Onset Date Resolution Status Internal impingement of left shoulder acute Internal impingement of left shoulder acute Left rotator cuff tear acute Left shoulder pain acute Atherosclerotic heart diseas e of [place] coronary artery without angina pectoris acute Essential hypertension acute Hyperlipidemia chronic Internal impingement of left shoulder acute Left shoulder pain acute Primary osteoarthritis, left shoulder acute Internal impingement of left shoulder acute Left shoulder pain acute [facility] Work Phone: Evaluation note* Diagnosis Onset Date Resolution Status Internal impingement of left shoulder acute Left rotator cuff tear acute Left shoulder pain acute Atherosclerotic heart diseas e of [place] coronary artery without angina pectoris acute Essential hypertension acute Hyperlipidemia chronic Internal impingement of left shoulder acute Left shoulder pain acute Primary osteoarthritis, left shoulder acute Internal impingement of left shoulder acute Left shoulder pain acute Internal impingement of left shoulder acute Primary osteoarthritis, left shoulder acute [facility] Work Phone: Evaluation note* Diagnosis Onset Date Resolution Status Internal impingement of left shoulder acute Primary osteoarthritis, left shoulder acute Left shoulder pain acute Primary osteoarthritis, left shoulder acute Cellulitis acute Left rotator cuff tear acute Left shoulder pain acute Primary osteoarthritis, left shoulder acute [facility] Work Phone: Evaluation note* Diagnosis Onset Date Resolution Status Left shoulder pain acute Primary osteoarthritis, left shoulder acute Cellulitis acute Left rotator cuff tear acute Left shoulder pain acute Primary osteoarthritis, left shoulder acute [facility] Work Phone: Evaluation note* Diagnosis Onset Date Resolution Status Cellulitis acute Left rotator cuff tear acute Left shoulder pain acute Primary osteoarthritis, left shoulder acute Arthritis of left shoulder region acute Hypoxia acute Primary osteoarthritis, left shoulder acute [facility] Work Phone: Evaluation note* Diagnosis OAB (overactive bladder) Hypertonicity of bladder [facility] OAB (overactive bladder) Hypertonicity of bladder documented in this encounter [facility] Discharge instructions Additional Instructions Thank you for trusting us with your care today! Please take Tylenol (2 pills, 650 mg), ibuprofen (2 pills, 400 mg) every 6 hours as needed for pain and fever control. Please take antibiotics as prescribed. Please return to the emergency department if your symptoms change or worsen. Specifically if you develop blisters, pain that is worse and not improved after antibiotics. If you cannot tolerate antibiotics by mouth. Please follow with your primary care physician for further outpatient evaluation and management.[facility] Work Phone: Hospital Discharge instructions Additional Instructions Wear compression socks during the day, remove at night, keep your feet elevated when you are sitting/down. Try to walk around more throughout the day.[facility] Work Phone: Progress note Author Christiana Amaral [facility] Note Date/Time January 16, 2025 1 0:10am [facility] [address] [place] [id number] OFFICE VISIT Date of Service: 01/16/25 MR#: [id number] Acct: [id number] Name: DAPHNEY BENSON Rep #: [id number] : 1960 Provider: SENTHIL Amaral Age/Sex: 64/F Location: [facility] Status: Signed Intake Vital Signs 10/16/24 09:06 01/12/25 14:05 01/16/25 09:44 Height 5 ft 1 in 5 ft 1 in 5 ft 1 in Weight: 223 lb BMI 42.1 Intake Visit Reasons: BILATERAL KNEES Chief Complaint: 3 month follow up Accompanied by: Self Is patient in pain?: No Allergies isoniazid Allergy (Verified 01/16/25 09:48) Other Medications ?Medication ?Instructions ?Recorded ?Confirmed ?Type metformin 1,000 mg tablet 1,000 mg PO BID DM 04/14/20 01/16/25 History montelukast 10 mg tablet 10 mg PO DAILY 04/14/2012/31 History mometasone-formoterol HFA 200 2 inh inhalation PRN Whe ezing 08/03/21 01/16/25 History mcg-5 mcg/actuation aerosol inhaler bupropion HCl 150 mg 24 hr tablet, 150 mg PO DAILY 01/16/25 History extended release trazodone 50 mg tablet 50 mg PO QHS 09/20/22 History hydrochlorothiazide 25 mg tablet 25 mg PO DAILY 01/16/25 History budesonide 160 mcg-glycopyr 9 2 inh inhalation BID 06/2301/16/25 History mcg-formot 4.8 mcg/actuation HFA inhaler (Breztri Aerosphere) cartilage 40 mg-collagen II-boron 1 tab PO QHS 4 01/16/25 History 5 mg-hyaluronate sod 3.3 mg tablet (Move Free Ultra Triple Action (boron)) dulaglutide 3 mg/0.5 mL 3 mg subcut QWEEK 01/13/24 1 History subcutaneous pen injector (Trulicity) loratadine 10 mg tablet 10 mg PO DAILY 01/13/2412/31 History losartan 100 mg tablet 100 mg PO DAILY 01/13/24 History Bacillus coagulans 10 billion cell cell PO 09/18/24 History capsule,delayed release (Probiotic (B. coagulans)) vibegron 75 mg tablet (Gemtesa) 75 mg PO QDAY 09/18/24 01/16/25 History acetaminophen 650 mg 650 mg PO Q12H 12/29/2412/31 History tablet,extended release (Tylenol Arthritis Pain) fluticasone propionate 50 2 spray intranasal QDAY 12/0201/16/25 History mcg/actuation nasal spray,suspension (Flonase Allergy Relief) multivitamin 1 tab PO QAM 12/29/24 History omeprazole 20 mg capsule,delayed 20 mg PO QDAY 5 01/16/25 History release vit B complex-folic acid 400 cap PO 12/29/24 01/16/25 History mcg-choline 20 mg-inositol 50 mg capsule (Super B-50 Complex) atorvastatin 10 mg tablet (Lipitor) 10 mg PO QPM 01/0801/16/25 History diclofenac sodium 1 % topical gel 2 g topical ONCE 12/2501/16/25 History gabapentin 300 mg capsule 300 mg PO BID 01/08/2501/16 History prednisone 10 mg tablet mg PO 01/08/25 01/16/25 Hist ory valacyclovir 500 mg tablet 500 mg PO QDAY 01/08/25 History Have you fallen in the past year?: No PFSH Medical History Tinnitus Loss of hearing MRSA infection Alcohol use Diabetes Ambulates with cane Low iron Anemia High cholesterol Dietary restriction History of ulceration GERD (gastroesophageal reflux disease) CPAP (continuous positive airway pressure) dependence Right hip pain Wears dentures Wears glasses Post-menopausal Anxiety Arthritis Excessive bleeding Back pain Syncope Gastric reflux Sleep apnea Smoker Asthma COPD (chronic obstructive pulmonary disease) Shortness of breath on exertion Chronic cough Leg cramps History of edema History of echocardiogram History of stress test Cardiology follow-up encounter Left rotator cuff tear Primary osteoarthritis, left shoulder Internal impingement of left shoulder Left shoulder pain Atherosclerotic heart disease of [place] coronary artery without angina pectoris History of left heart catheterization (LHC) (~09/27/21) Abnormal stress test Bronchitis Palpitations Type 2 diabetes mellitus Diabetes COVID-19 MRSA (methicillin resistant staph aureus) culture positive Hypertension Vertigo Fracture, tibial plateau Depression Surgical History History of surgery on lower extremity H/O cataract removal with insertion of prosthetic lens History of esophagogastroduodenoscopy (EGD) History of colonoscopy History of shoulder surgery History of cardiac catheterization Hx of eye surgery Hx laparoscopic cholecystectomy Hx of section Hx of right knee surgery H/O: hysterectomy Family History Brother Atrial fibrillation Grandfather Myocardial infarction Grandmother Myocardial infarction Mother Dementia CAD (coronary artery disease) Hypertension Father COPD (chronic obstructive pulmonary disease) Hypertension Cancer Prostate, Colon, Other Blood clot associated with vein wall inflammation Breast cancer Colon cancer Diabetes Heart disease Social History household members: none current occupational exposures/hazards: No history of recent travel: No Smoking Status: Former smoker quit date: 09/11/24 alcohol intake: never substance use type: does not use caffeine: Yes Type: coffee Number of servings: 5 what type of physical activity do you participate in: other frequency: other duration: other do you feel safe at home: Yes HPI BILATERAL KNEES Details: This documentation accurately reflects the service provided and the decisions made by me, GAMALIEL SuazoC 01/16/25 0944. Part of today?s visit was documented by Rhonda Chicas MA, acting as scribe. DAPHNEY BENSON is a 64 year old F here today for bilateral knee 3 month follow up. Patient states that she doesn't have any pain today. She had an bilateral knee viscosupplementation 3 months ago with, great results. Patient reports significant pain reduction and ease of activities. On rare occasion, she will flare some knee pain, however it resolved spontaneously after stopping what everactivity she is performing at that time. No new injuries. No Tylenol or topicals for knee OA symptoms. No current planned exercises except routine chores and tasks. Reports recent asthma flare. No HEP currently. 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 ROS Const All systems reviewed & are unremarkable except as noted in H and other (A&O x 3,no apparent distress. No recent illness.) ENT Denies dizziness Card Denies chest pain, Denies dyspnea, Denies edema and Reports other (No palpitations) Resp Denies cough, Denies dyspnea and Reports other (No recent URI) GI Reports system reviewed and no additional complaints, except as documented, Denies nausea and Denies vomiting Musc Reports as per HPI Neuro No dizziness Psych Reports system reviewed and no additional complaints, except as documented Noe/Lymph Denies easy bleeding and Denies easy bruising Ortho Exam General General: Yes no acute distress and Yes well groomed Neurologic: Yes alert and Yes oriented x3 Psychologic: Yes reasonable and appropriate Right Knee KNEE: History of proximal tibia ORIF 2019, scar well-healed Skin is pink, warm, dry and intact. No swelling present, no skin discoloration. Palpation: No tenderness with exam or palpation ROM 0-130 Special testing negative for laxity with varus or valgus stress, anterior or posterior drawer, Ariella Full range of distal joints with no symptom aggravation Distal motor or sensory intact with cap refill at 2-3 seconds Left Knee KNEE: Skin is pink, warm, dry and intact. No swelling present, no skin discoloration Palpation: No pain with palpation or range of motion ROM 0 to 100 degrees, positive stiffness 80 to 100 degrees Testing positive Ariella, negative anterior posterior drawer, negative laxity with varus and valgus stressing Gait: + varus alignment with faint limping gait; significantly improved since last visit No crepitus on today's exam Full range of distal joints with no symptom aggravation Distal motor or sensory intact with cap refill at 2-3 seconds Coding Level of Care Code Off vis,est,level 3 Diagnoses Localized osteoarthritis of left knee M17.12 Osteoarthritis of right knee, unspecified osteoarthritis type M17.11 Osteoarthritis type: unspecified Obesity, class 3 E66.813 Assessment and Plan Assessment and Plan (1) Localized osteoarthritis of left knee: Status: Acute Plan: We discussed symptom control and to continue to use OTC Tylenol, topical gels and activity modification Encouraged to initiate some physical activity and advance as tolerated Patient provided with AAOS knee conditioning exercises to begin 3 times a week for 2 weeks and then advance to most days of the week. We did discuss option offormal PT on as needed basis. Plan for follow-up here on as needed basis if effect of viscosupplementation wears off or any new concerns. In agreement with plan of care This document has been transcribed using [employer] dictation software. There may beincorrect words, spelling, and punctuation. (2) Right knee DJD: Status: Acute Qualifiers: Osteoarthritis type: unspecified Qualified Code(s): M17.11 - Unilateralprimary osteoarthritis, right knee Plan: Same as above (3) Obesity, class 3: Status: Acute Plan: Reviewed following up with PCP regarding weight loss plan Plan Details Additional Comments: Thank you for allowing us to participate in the patients plan of care, if you have any questions please do not hesitate to call. Plan was reviewed with patient/family member along with red flag symptoms. Understanding was acknowledged. Questions were answered to apparent satisfaction. This note was generated using a voice recognition system and there may be incorrect words, spelling or punctuation that were not noted when reviewing the office note prior to saving. Portions of this documentation were copied and pasted from previous office visitnotes to provide a cohesive continuity of the history. The note has been reviewed, edited, and updated, as necessary. Clinical Quality Measures Falls Risk Screening/Assistive Devices Have you fallen in the past year?: No 01/16/25 1114 <Electronically signed by Christiana NDIAYE> Date _ Christiana NDIAYE Cosigner Signature: Date (if applicable) CC: ~ [facility] Work Phone: Reason for referral (narrative)No reason for referral information [facility] Work [facility]: Summary Purpose Family History No Family History Records Found Relationship Condition Age at Onset Recorded Date/T dona brother Atrial fibrillation Unknown grandfather Myocardial infarction Unknown grandmother Myocardial infarction Unknown Relationship Condition Age at Onset Recorded Date/T dona brother Atrial fibrillation Unknown grandfather Myocardial infarction Unknown grandmother Myocardial infarction Unknown mother Dementia Unknown Coronary artery disease Unknown Hypertension Unknown father Chronic obstructive pulmonary disease Unk nown Malignant neoplasm Unknown Relationship Condition Age at Onset Recorded Date/T dona Not Specified Malignant neoplasm of colon Unknown Diabetes mellitus Unknown Phlebitis and thrombophlebitis Unknown Cardiac disease Unknown Malignant neoplasm of breast Unknown brother Atrial fibrillation Unknown grandfather Myocardial infarction Unknown grandmother Myocardial infarction Unknown mother Dementia Unknown Coronary artery disease Unknown Hypertension Unknown father Chronic obstructive pulmonary disease Unk nown Malignant neoplasm Unknown Advance Directives No Advanced Directives Records Found Advance Directive Response Recorded Date/ Time Advance Directives No May 7:09pm Living Will No April 15 4:25pm Power of Battalion Chief No April 15, 2021 4:25pm Advance Directive Response Recorded Date/ Time Advance Directives No September 27 7:42am Living Will No September 27, 2021 7:42am Power of Battalion Chief No September 27 7:42am Advance Directive Response Recorded Date/ Time Advance Directives No September 27 7:42am Living Will No January 13 3:44pm Power of Battalion Chief No January 13, 2022 3:44pm Advance Directive Response Recorded Date/ Time Advance Directives No May 11:04am Living Will No May 24, 023 11:04am Power of Battalion Chief No May 24, 2022 11:04am Advance Directive Response Recorded Date/ Time Advance Directives No May 12:04pm Living Will No May 24, 023 12:04pm Power of Battalion Chief No May 24, 2022 12:04pm Advance Directive Response Recorded Date/ Time Advance Directives No May 12:04pm Living Will No August 28, 2022 1 0:59am Power of Battalion Chief No August 28, 2022 10:59am Advance Directive Response Recorded Date/ Time Advance Directives No May 12:04pm Living Will No September 01, 2022 1 :06pm Power of Battalion Chief No September 01, 2022 1:06pm Advance Directive Response Recorded Date/ Time Advance Directives No May 12:04pm Living Will No September 20, 2022 10:37am Power of Battalion Chief No September 20 10:37am Advance Directive Response Recorded Date/ Time Advance Directives No May 12:04pm Living Will No November 02, 2022 4:53pm Power of Battalion Chief No November 02 4:53pm Advance Directive Response Recorded Date/ Time Advance Directives No December 11:33am Living Will No December 25, 2022 11:33am Power of Battalion Chief No December 11:33am Advance Directive Response Recorded Date/ Time Advance Directives No December 10:33am Living Will No December 25, 2022 10:33am Power of Battalion Chief No December 10:33am Advance Directive Response Recorded Date/ Time Advance Directives No December 11:33am Living Will No July 04, 2023 8:52am Power of Battalion Chief No July 03 8:52am Advance Directive Response Recorded Date/ Time Advance Directives No December 11:33am Living Will No July 25, 2023 5:51pm Power of Battalion Chief No July 24 5:51pm Advance Directive Response Recorded Date/ Time Advance Directives No August 13 11:11am Advance Directive Response Recorded Date/ Time Advance Directives No September 18 10:29am Advance Directive Response Recorded Date/ Time Living Will No July 25, 2023 5:51pm Do you have a Healthcare Power of Battalion Chief? No July 25, 2023 5:51pm Advance Directives No September 18 10:29am Hospital Course Note HNO ID: [id number] Author: Robert Munguia Service: General Surgery Author Type: Physician Type: Discharge Summary Filed: 02/24/2020 10:02 AM Note Text: DISCHARGE SUMMARY PATIENT NAME: Daphney Benson Code Status: Not on file Highest Readmission Risk Score: 17 The 30 day readmissions risk score is derived from an internally validated risk model which evaluates patient level characteristics, utilization history, medication orders and lab results up until the day of discharge. Patients with a score of 40 or above are considered highest risk for readmission. Specific patient level drivers will be listed at the bottom of the summary. Admission Information Admission Information ADMIT DATE: 02/18/2020 DISCHARGE DATE: 02/24/2020 MY DOCTORS AND MEDICAL TEAM: My Main [facility] Doctor: Franci Fox MD Primary Care Provider: Alayna Smart My Medical Team Members: Treatment Team: Attending Provider: Franci Fox MD Consulting: Willam Graves MY CONDITION AT DISCH (more content not included)... Note HNO ID: [id number] Author: Bakari becerril ([facility] Disability Manager) Deana Service: ? Author Type: Nurse Oil Burner Technician Type: Anesthesia Procedure Notes Filed: 02/19/2020 8:29 AM Note Text: ANESTHESIOLOGY PROCEDURE NOTE Airway General Information Procedure Start Time/Medication Administration: 02/19/2020 8:14 AM Patient location during procedure: OR Timeout Performed Pre-procedure: timeout performed Consent Obtained: Yes Patient identity confirmed: arm band and patient Staffing Anesthesiologist: Maykel Gunn MAT MAKING MACHINE TENDER: Efra ([facility] Disability Manager) Dougis Performed by: SCOTTY Indications and Patient Condition Preoxygenated: yes Manual In-Line Stabilization: No Difficult Mask: No Indications for airway management: anesthesia anesthesia circuit Method: asleep Cricoid Pressure: No Final Airway Details Final airway type: endotracheal airway Final Endotracheal Airway: ETT Cuffed: yes Successful intubation technique: direct laryngoscopy Endotracheal tube insertion site: oral Blade: Shakeel Blade size: #4 ETT size (mm): 7.0 Measured (more content not included)... Note HNO ID: [id number] Author: Boston Carlson MD Service: Orthopaedic Surgery Author Type: Resident Type: Brief Op Note Filed: 02/19/2020 10:42 AM Note Text: BRIEF OPERATIVE / PROCEDURE NOTE LOG ID: [id number] SURGERY/PROCEDURE DATE: 02/19/2020 INCISION/PROCEDURE START TIME: 8:37 AM INCISION CLOSE/PROCEDURE END TIME: 10:02 AM SURGEON(S)/PROCEDURALIST(S) AND OUT PATIENT THERAPIST(S): Surgeon(s) and Role: * Willam Graves - Primary * Miki Carlson MD - Resident - Assisting No Additional Staff SURGERY/PROCEDURE(S): ORIF right tibial plateau fracture ANESTHESIA: General FINDINGS: see operative report FLUIDS: per anaesthesia ESTIMATED BLOOD LOSS: 0 mls ANTIBIOTICS: ancef 2 g SPECIMENS: None COMPLICATIONS: None PRE-OP/PRE-PROCEDURE DIAGNOSIS: Right tibial plateau fracture POST-OP/POST-PROCEDURE DIAGNOSIS: same Post-Operative Plan: -Management per trauma service -Pain control -Abx: 1g ancef x 2 doses post operatively -DVT ppx: per primary -PT/OT eval and recs -OT consulted for thumb spica splint -M (more content not included)... Note HNO ID: [id number] Author: Christelle Gunn Service: ? Author Type: Physician Type: Anesthesia Procedure Notes Filed: 02/19/2020 11:41 AM Note Text: ANESTHESIOLOGY PROCEDURE NOTE A-Line General Information Preparation Sterility Preparation: hand hygiene performed prior to procedure, gown used during line insertion, surgical cap used, mask used, sterile drape used during line insertion, skin prep agent completely dried prior to procedure Procedure Details Catheter Size: 20 G SIGNATURE: Maykel Gunn MD PATIENT NAME: Daphney Benson DATE: February 19, 2020 TIME: 11:40 AM CSN: [id number] Procedure Findings Note HNO ID: [id number] Author: Bakari Treviñon Disability Manager) Deana Service: ? Author Type: Nurse Oil Burner Technician Type: Anesthesia Procedure Notes Filed: 02/19/2020 8:29 AM Note Text: ANESTHESIOLOGY PROCEDURE NOTE Airway General Information Procedure Start Time/Medication Administration: 02/19/2020 8:14 AM Patient location during procedure: OR Timeout Performed Pre-procedure: timeout performed Consent Obtained: Yes Patient identity confirmed: arm band and patient Staffing Anesthesiologist: Maykel Gunn MAT MAKING MACHINE TENDER: Efra Coronel Disability Manager) Deana Performed by: SCOTTY Indications and Patient Condition Preoxygenated: yes Manual In-Line Stabilization: No Difficult Mask: No Indications for airway management: anesthesia anesthesia circuit Method: asleep Cricoid Pressure: No Final Airway Details Final airway type: endotracheal airway Final Endotracheal Airway: ETT Cuffed: yes Successful intubation technique: direct laryngoscopy Endotracheal tube insertion site: oral Blade: Shakeel Blade size: #4 ETT size (mm): 7.0 Measured (more content not included)... Note HNO ID: [id number] Author: Boston Carlson MD Service: Orthopaedic Surgery Author Type: Resident Type: Brief Op Note Filed: 02/19/2020 10:42 AM Note Text: BRIEF OPERATIVE / PROCEDURE NOTE LOG ID: [id number] SURGERY/PROCEDURE DATE: 02/19/2020 INCISION/PROCEDURE START TIME: 8:37 AM INCISION CLOSE/PROCEDURE END TIME: 10:02 AM SURGEON(S)/PROCEDURALIST(S) AND OUT PATIENT THERAPIST(S): Surgeon(s) and Role: * Willam Graves - Primary * Miki Carlson MD - Resident - Assisting No Additional Staff SURGERY/PROCEDURE(S): ORIF right tibial plateau fracture ANESTHESIA: General FINDINGS: see operative report FLUIDS: per anaesthesia ESTIMATED BLOOD LOSS: 0 mls ANTIBIOTICS: ancef 2 g SPECIMENS: None COMPLICATIONS: None PRE-OP/PRE-PROCEDURE DIAGNOSIS: Right tibial plateau fracture POST-OP/POST-PROCEDURE DIAGNOSIS: same Post-Operative Plan: -Management per trauma service -Pain control -Abx: 1g ancef x 2 doses post operatively -DVT ppx: per primary -PT/OT eval and recs -OT consulted for thumb spica splint -M (more content not included)... Note HNO ID: [id number] Author: Christelle Gunn Service: ? Author Type: Physician Type: Anesthesia Procedure Notes Filed: 02/19/2020 11:41 AM Note Text: ANESTHESIOLOGY PROCEDURE NOTE A-Line General Information Preparation Sterility Preparation: hand hygiene performed prior to procedure, gown used during line insertion, surgical cap used, mask used, sterile drape used during line insertion, skin prep agent completely dried prior to procedure Procedure Details Catheter Size: 20 G SIGNATURE: Maykel Gunn MD PATIENT NAME: Daphney Benson DATE: February 19, 2020 TIME: 11:40 AM CSN: [id number] Chief Complaint and Reason for Visit Chief Complaint Bilat knees xray CP, HTN (VSFC) BRONCHITIS Reason for Visit Primary osteoarthrit is of knees, bilateral Bronchitis Essential hypertension Palpitations Hyperlipidemia Chief Complaint Bilat knees xray CP, HTN (VSFC) BRONCHITIS PALPITATIONS, CHEST PAIN PALPITATIONS, CHEST PAIN Reason for Visit Primary osteoarthrit is of knees, bilateral Bronchitis Essential hypertension Palpitations Hyperlipidemia Chief Complaint Bilat knees xray CP, HTN (VSFC) BRONCHITIS PALPITATIONS, CHEST PAIN PALPITATIONS, CHEST PAIN PER M.S. CATH TEACHING ABN STRESS TEST CHEST PAIN ABN STRESS TEST CHEST PAIN Reason for Visit Primary osteoarthrit is of knees, bilateral Bronchitis Essential hypertension Palpitations Hyperlipidemia Chief Complaint Bilat knees xray CP, HTN ([facility]) BRONCHITIS PALPITATIONS, CHEST PAIN PALPITATIONS, CHEST PAIN PER M.S. CATH TEACHING ABN STRESS TEST CHEST PAIN ABN STRESS TEST CHEST PAIN E ORDER Reason for Visit Primary osteoarthrit is of knees, bilateral Bronchitis Essential hypertension Palpitations Hyperlipidemia Chief Complaint ABN STRESS TEST CHES T PAIN ABN STRESS TEST CHEST PAIN E ORDER 6 wk FU HIP Reason for Visit Atherosclerotic hear t disease of [place] coronary artery without angina pectoris Essential hypertension COPD (chronic obstructive pulmonary disease) Hyperlipidemia Obesity Chief Complaint BL KNEES BL KNEE LEFT SHOULDER room 1 Reason for Visit Primary osteoarthrit is of knees, bilateral Left knee DJD Obesity Right knee DJD Type 2 diabetes mellitus Internal impingement of left shoulder Left shoulder pain Primary osteoarthritis, left shoulder Chief Complaint BL KNEE LEFT SHOULDER room 1 BL knee OBESITY Reason for Visit Left knee DJD Obesity Right knee DJD Type 2 diabetes mellitus Internal impingement of left shoulder Left shoulder pain Primary osteoarthritis, left shoulder Left knee DJD Right knee DJD Chief Complaint BL KNEE LEFT SHOULDER room 1 BL knee OBESITY LEFT SHOULDER NEED LAB ORDER OBESITY L SHOULDER OA RX HERE Reason for Visit Left knee DJD Obesity Right knee DJD Type 2 diabetes mellitus Internal impingement of left shoulder Left shoulder pain Primary osteoarthritis, left shoulder Left knee DJD Right knee DJD Internal impingement of left shoulder Primary osteoarthritis, left shoulder Chief Complaint BL KNEE LEFT SHOULDER room 1 BL knee OBESITY LEFT SHOULDER NEED LAB ORDER OBESITY Cellulitis LEFT LEG LEFT SHOULDER OBESITY L SHOULDER OA RX HERE cellulitis Reason for Visit Left knee DJD Obesity Right knee DJD Type 2 diabetes mellitus Internal impingement of left shoulder Left shoulder pain Primary osteoarthritis, left shoulder Left knee DJD Right knee DJD Internal impingement of left shoulder Primary osteoarthritis, left shoulder Left leg cellulitis Internal impingement of left shoulder Left rotator cuff tear Left shoulder pain Chief Complaint BL KNEE LEFT SHOULDER room 1 BL knee OBESITY LEFT SHOULDER NEED LAB ORDER OBESITY Cellulitis LEFT LEG LEFT SHOULDER OBESITY L SHOULDER OA RX HERE cellulitis B/L CELLULITIS CELLULITIS Reason for Visit Left knee DJD Obesity Right knee DJD Type 2 diabetes mellitus Internal impingement of left shoulder Left shoulder pain Primary osteoarthritis, left shoulder Left knee DJD Right knee DJD Internal impingement of left shoulder Primary osteoarthritis, left shoulder Left leg cellulitis Internal impingement of left shoulder Left rotator cuff tear Left shoulder pain Cellulitis of both lower extremities Pain of left calf Chief Complaint BL KNEE LEFT SHOULDER room 1 BL knee OBESITY LEFT SHOULDER NEED LAB ORDER OBESITY Cellulitis LEFT LEG LEFT SHOULDER OBESITY L SHOULDER OA RX HERE cellulitis B/L CELLULITIS CELLULITIS LEFT SHOULDER Bilateral lower extremity edema and celluitis EDEMA OBESITY Reason for Visit Left knee DJD Obesity Right knee DJD Type 2 diabetes mellitus Internal impingement of left shoulder Left shoulder pain Primary osteoarthritis, left shoulder Left knee DJD Right knee DJD Internal impingement of left shoulder Primary osteoarthritis, left shoulder Left leg cellulitis Internal impingement of left shoulder Left rotator cuff tear Left shoulder pain Cellulitis of both lower extremities Pain of left calf Left rotator cuff tear Bilateral lower extremity edema Chief Complaint BL knee OBESITY LEFT SHOULDER NEED LAB ORDER OBESITY Cellulitis LEFT LEG LEFT SHOULDER OBESITY L SHOULDER OA RX HERE cellulitis B/L CELLULITIS CELLULITIS LEFT SHOULDER Bilateral lower extremity edema and celluitis EDEMA OBESITY LT SHOULDER ARTHRSCOPY, SUBACROMIAL DECOMPRESSION LT SHOULDER ARTHRSCOPY, SUBACROMIAL DECOMPRESSION Reason for Visit Left knee DJD Right knee DJD Internal impingement of left shoulder Primary osteoarthritis, left shoulder Left leg cellulitis Internal impingement of left shoulder Left rotator cuff tear Left shoulder pain Cellulitis of both lower extremities Pain of left calf Left rotator cuff tear Bilateral lower extremity edema Internal impingement of left shoulder Chief Complaint OBESITY LEFT SHOULDER NEED LAB ORDER OBESITY Cellulitis LEFT LEG LEFT SHOULDER OBESITY L SHOULDER OA RX HERE cellulitis B/L CELLULITIS CELLULITIS LEFT SHOULDER Bilateral lower extremity edema and celluitis EDEMA OBESITY LT SHOULDER ARTHRSCOPY, SUBACROMIAL DECOMPRESSION LT SHOULDER ARTHRSCOPY, SUBACROMIAL DECOMPRESSION left shoulder ARTERIAL INSUFFICIENCY L SHOULDER PAIN RX HERE Reason for Visit Internal impingement of left shoulder Primary osteoarthritis, left shoulder Left leg cellulitis Internal impingement of left shoulder Left rotator cuff tear Left shoulder pain Cellulitis of both lower extremities Pain of left calf Left rotator cuff tear Bilateral lower extremity edema Internal impingement of left shoulder Left shoulder pain Chief Complaint LEFT SHOULDER NEED LAB ORDER OBESITY Cellulitis LEFT LEG LEFT SHOULDER OBESITY L SHOULDER OA RX HERE cellulitis B/L CELLULITIS CELLULITIS LEFT SHOULDER Bilateral lower extremity edema and celluitis EDEMA OBESITY LT SHOULDER ARTHRSCOPY, SUBACROMIAL DECOMPRESSION LT SHOULDER ARTHRSCOPY, SUBACROMIAL DECOMPRESSION left shoulder ARTERIAL INSUFFICIENCY left shoulder Room 2 OBESITY L SHOULDER PAIN RX HERE Reason for Visit Internal impingement of left shoulder Primary osteoarthritis, left shoulder Left leg cellulitis Internal impingement of left shoulder Left rotator cuff tear Left shoulder pain Cellulitis of both lower extremities Pain of left calf Left rotator cuff tear Bilateral lower extremity edema Internal impingement of left shoulder Left shoulder pain Internal impingement of left shoulder Right hip pain Chief Complaint NEED LAB ORDER OBESITY Cellulitis LEFT LEG LEFT SHOULDER OBESITY L SHOULDER OA RX HERE cellulitis B/L CELLULITIS CELLULITIS LEFT SHOULDER Bilateral lower extremity edema and celluitis EDEMA OBESITY LT SHOULDER ARTHRSCOPY, SUBACROMIAL DECOMPRESSION LT SHOULDER ARTHRSCOPY, SUBACROMIAL DECOMPRESSION left shoulder ARTERIAL INSUFFICIENCY left shoulder Room 2 OBESITY Pain in left lower leg abn levels L SHOULDER PAIN RX HERE Reason for Visit Left leg cellulitis Internal impingement of left shoulder Left rotator cuff tear Left shoulder pain Cellulitis of both lower extremities Pain of left calf Left rotator cuff tear Bilateral lower extremity edema Internal impingement of left shoulder Left shoulder pain Internal impingement of left shoulder Right hip pain Chief Complaint Cellulitis LEFT LEG LEFT SHOULDER OBESITY L SHOULDER OA RX HERE cellulitis B/L CELLULITIS CELLULITIS LEFT SHOULDER Bilateral lower extremity edema and celluitis EDEMA OBESITY LT SHOULDER ARTHRSCOPY, SUBACROMIAL DECOMPRESSION LT SHOULDER ARTHRSCOPY, SUBACROMIAL DECOMPRESSION left shoulder ARTERIAL INSUFFICIENCY left shoulder Room 2 OBESITY Pain in left lower leg abn levels LEFT SHOULDER OBESITY L SHOULDER PAIN RX HERE Reason for Visit Left leg cellulitis Internal impingement of left shoulder Left rotator cuff tear Left shoulder pain Cellulitis of both lower extremities Pain of left calf Left rotator cuff tear Bilateral lower extremity edema Internal impingement of left shoulder Left shoulder pain Internal impingement of left shoulder Right hip pain Internal impingement of left shoulder Chief Complaint OBESITY L SHOULDER OA RX HERE cellulitis B/L CELLULITIS CELLULITIS LEFT SHOULDER Bilateral lower extremity edema and celluitis EDEMA OBESITY LT SHOULDER ARTHRSCOPY, SUBACROMIAL DECOMPRESSION LT SHOULDER ARTHRSCOPY, SUBACROMIAL DECOMPRESSION left shoulder ARTERIAL INSUFFICIENCY left shoulder Room 2 OBESITY Pain in left lower leg abn levels LEFT SHOULDER OBESITY POST SHADE OBESITY L SHOULDER PAIN RX HERE Reason for Visit Cellulitis of both l ower extremities Pain of left calf Left rotator cuff tear Bilateral lower extremity edema Internal impingement of left shoulder Left shoulder pain Internal impingement of left shoulder Right hip pain Internal impingement of left shoulder Chief Complaint EDEMA OBESITY LT SHOULDER ARTHRSCOPY, SUBACROMIAL DECOMPRESSION LT SHOULDER ARTHRSCOPY, SUBACROMIAL DECOMPRESSION left shoulder ARTERIAL INSUFFICIENCY left shoulder Room 2 OBESITY Pain in left lower leg abn levels LEFT SHOULDER OBESITY POST SHADE OBESITY NEED ORDER LEFT SHOULDER 1 Y FU PREV PFM L SHOULDER PAIN RX HERE Reason for Visit Internal impingement of left shoulder Left shoulder pain Internal impingement of left shoulder Right hip pain Internal impingement of left shoulder Internal impingement of left shoulder Left rotator cuff tear Left shoulder pain Atherosclerotic heart disease of [place] coronary artery without angina pectoris Essential hypertension Hyperlipidemia Chief Complaint Pain in left lower l eg abn levels LEFT SHOULDER OBESITY POST SHADE OBESITY NEED ORDER LEFT SHOULDER 1 Y FU PREV PFM L SHOULDER PAIN RX HERE LEFT SHOULDER LEFT SHOULDER Room 5 LEFT SHOULDER OSTEO Reason for Visit Internal impingement of left shoulder Internal impingement of left shoulder Left rotator cuff tear Left shoulder pain Atherosclerotic heart disease of [place] coronary artery without angina pectoris Essential hypertension Hyperlipidemia Internal impingement of left shoulder Left shoulder pain Primary osteoarthritis, left shoulder Internal impingement of left shoulder Left shoulder pain Chief Complaint OBESITY POST SHADE OBESITY NEED ORDER LEFT SHOULDER 1 Y FU PREV PFM L SHOULDER PAIN RX HERE LEFT SHOULDER LEFT SHOULDER Room 5 LEFT SHOULDER OSTEO left shoulder FOR SURGICAL PLANNING REVERSE SHOULDER REPLACEMENT Reason for Visit Internal impingement of left shoulder Left rotator cuff tear Left shoulder pain Atherosclerotic heart disease of [place] coronary artery without angina pectoris Essential hypertension Hyperlipidemia Internal impingement of left shoulder Left shoulder pain Primary osteoarthritis, left shoulder Internal impingement of left shoulder Left shoulder pain Internal impingement of left shoulder Primary osteoarthritis, left shoulder Chief Complaint left shoulder FOR SURGICAL PLANNING REVERSE SHOULDER REPLACEMENT LEFT SHOULDER CONCERN FOR Cellulitis left shoulder Reason for Visit Internal impingement of left shoulder Primary osteoarthritis, left shoulder Left shoulder pain Primary osteoarthritis, left shoulder Cellulitis Left rotator cuff tear Left shoulder pain Primary osteoarthritis, left shoulder Chief Complaint FOR SURGICAL PLANNIN G REVERSE SHOULDER REPLACEMENT LEFT SHOULDER CONCERN FOR Cellulitis left shoulder CHECKING INTO ORDER Reason for Visit Left shoulder pain Primary osteoarthritis, left shoulder Cellulitis Left rotator cuff tear Left shoulder pain Primary osteoarthritis, left shoulder Chief Complaint CONCERN FOR Cellulit is left shoulder PREOP CHECKING INTO ORDER Reverse Total Shoulder Replacement post op pain control post op pain control post op pain control post op pain control Reason for Visit Cellulitis Left rotator cuff tear Left shoulder pain Primary osteoarthritis, left shoulder Arthritis of left shoulder region Hypoxia Primary osteoarthritis, left shoulder Chief Complaint Admit Date L KNEE PAIN April 25, 2024 1 1:20am pain- LEFT KNEE April 25, 2024 1 1:29am LEFT SHOULDER July 15, 2024 10: 43am Room 3 July 15, 2024 10: 46am LEFT HIP August 14, 2024 9:26a m Rm 3 August 14, 2024 10:07 am Reason for Visit Admit Date Strain of left knee April 25, 2024 1 1:20am Arthritis of left shoulder region July 15, 2024 10:43am Radicular low back pain August 14, 2024 9 :26am Sacral pressure sore August 14, 2024 9:26 am Chief Complaint Admit Date LEFT SHOULDER July 15, 2024 10: 43am Room 3 July 15, 2024 10: 46am LEFT HIP August 14, 2024 9:26a m Rm 3 August 14, 2024 10:07 am LEFT KNEE August 22, 2024 10:14 am LUMBAR RADICULOPATHY September 09, 2024 9:4 6am LOW BACK PAIN. RX HERE September 12, 2024 1 2:30pm Reason for Visit Admit Date Arthritis of left shoulder region July 15, 2024 10:43am Left knee DJD August 14, 2024 9:26a m Primary localized osteoarthritis of left hip August 14, 2024 9:26am Radicular low back pain August 14, 2024 9 :26am Sacral pressure sore August 14, 2024 9:26 am SI (sacroiliac) joint dysfunction August 142024 9:26am Left knee DJD August 22, 2024 10:14 am Localized osteoarthritis of left knee Ma y 2024 10:14am Chief Complaint Admit Date LEFT SHOULDER July 15, 2024 10: 43am Room 3 July 15, 2024 10: 46am LEFT HIP August 14, 2024 9:26a m Rm 3 August 14, 2024 10:07 am LEFT KNEE August 22, 2024 10:14 am LUMBAR RADICULOPATHY September 09, 2024 9:4 6am LOW BACK PAIN. RX HERE September 17, 2024 1 2:30pm LEFT HIP September 18, 2024 9:37 am Reason for Visit Admit Date Arthritis of left shoulder region July 15, 2024 10:43am Left knee DJD August 14, 2024 9:26a m Primary localized osteoarthritis of left hip August 14, 2024 9:26am Radicular low back pain August 14, 2024 9 :26am Sacral pressure sore August 14, 2024 9:26 am SI (sacroiliac) joint dysfunction August 142024 9:26am Left knee DJD August 22, 2024 10:14 am Localized osteoarthritis of left knee Ma y 2024 10:14am Right knee DJD September 18, 2024 9:37 am Chief Complaint Admit Date LEFT SHOULDER July 15, 2024 10: 43am Room 3 July 15, 2024 10: 46am LEFT HIP August 14, 2024 9:26a m Rm 3 August 14, 2024 10:07 am LEFT KNEE August 22, 2024 10:14 am LUMBAR RADICULOPATHY September 09, 2024 9:4 6am LOW BACK PAIN. RX HERE September 17, 2024 1 2:30pm LEFT HIP September 18, 2024 9:37 am XRAY September 18, 2024 10:3 0am Chief Complaint Admit Date LEFT SHOULDER July 15, 2024 10: 43am Room 3 July 15, 2024 10: 46am LEFT HIP August 14, 2024 9:26a m 3 August 14, 2024 10:07 am LEFT KNEE August 22, 2024 10:14 am LUMBAR RADICULOPATHY September 09, 2024 9:4 6am LEFT HIP September 18, 2024 9:37 am XRAY September 18, 2024 10:3 0am LOW BACK PAIN. RX HERE September 19, 2024 1 0:00am left knee October 02, 2024 9:53a m Reason for Visit Admit Date Arthritis of left shoulder region July 15, 2024 10:43am Left knee DJD August 14, 2024 9:26a m Primary localized osteoarthritis of left hip August 14, 2024 9:26am Radicular low back pain August 14, 2024 9 :26am Sacral pressure sore August 14, 2024 9:26 am SI (sacroiliac) joint dysfunction August 142024 9:26am Left knee DJD August 22, 2024 10:14 am Localized osteoarthritis of left knee Ma y 2024 10:14am Body mass index [BMI] 40.0-44.9, adult J une 2024 9:37am Localized osteoarthritis of left knee Ju ne 2024 9:37am Obesity, class 3 September 18, 2024 9:37 am Right knee DJD September 18, 2024 9:37 am SI (sacroiliac) joint dysfunction August 312024 9:37am Chief Complaint Admit Date LEFT SHOULDER July 15, 2024 10: 43am Room 3 July 15, 2024 10: 46am LEFT HIP August 14, 2024 9:26a m Rm 3 August 14, 2024 10:07 am LEFT KNEE August 22, 2024 10:14 am LUMBAR RADICULOPATHY September 09, 2024 9:4 6am LEFT HIP September 18, 2024 9:37 am XRAY September 18, 2024 10:3 0am LOW BACK PAIN. RX HERE September 19, 2024 1 0:00am left knee October 02, 2024 9:53a m BILATERAL KNEES October 09, 2024 9:51 am Reason for Visit Admit Date Arthritis of left shoulder region July 15, 2024 10:43am Left knee DJD August 14, 2024 9:26a m Primary localized osteoarthritis of left hip August 14, 2024 9:26am Radicular low back pain August 14, 2024 9 :26am Sacral pressure sore August 14, 2024 9:26 am SI (sacroiliac) joint dysfunction August 142024 9:26am Left knee DJD August 22, 2024 10:14 am Localized osteoarthritis of left knee Ma y 2024 10:14am Body mass index [BMI] 40.0-44.9, adult J une 2024 9:37am Localized osteoarthritis of left knee Ju ne 2024 9:37am Obesity, class 3 September 18, 2024 9:37 am Right knee DJD September 18, 2024 9:37 am SI (sacroiliac) joint dysfunction August 312024 9:37am Localized osteoarthritis of left knee Ju 2024 9:53am Right knee DJD October 02, 2024 9:53a m Reason for Visit Admit Date Arthritis of left shoulder region July 15, 2024 10:43am Left knee DJD August 14, 2024 9:26a m Primary localized osteoarthritis of left hip August 14, 2024 9:26am Radicular low back pain August 14, 2024 9 :26am Sacral pressure sore August 14, 2024 9:26 am SI (sacroiliac) joint dysfunction August 142024 9:26am Left knee DJD August 22, 2024 10:14 am Localized osteoarthritis of left knee Ma y 2024 10:14am Body mass index [BMI] 40.0-44.9, adult J une 2024 9:37am Localized osteoarthritis of left knee Ju ne 2024 9:37am Obesity, class 3 September 18, 2024 9:37 am Right knee DJD September 18, 2024 9:37 am SI (sacroiliac) joint dysfunction August 312024 9:37am Localized osteoarthritis of left knee Ju ly 2024 9:53am Right knee DJD October 02, 2024 9:53a m Localized osteoarthritis of left knee Ju ly 2024 9:51am Right knee DJD October 09, 2024 9:51 am Chief Complaint Admit Date LEFT SHOULDER July 15, 2024 10: 43am Room 3 July 15, 2024 10: 46am LEFT HIP August 14, 2024 9:26a m Rm 3 August 14, 2024 10:07 am LEFT KNEE August 22, 2024 10:14 am LUMBAR RADICULOPATHY September 09, 2024 9:4 6am LEFT HIP September 18, 2024 9:37 am XRAY September 18, 2024 10:3 0am LOW BACK PAIN. RX HERE September 19, 2024 1 0:00am left knee October 02, 2024 9:53a m BILATERAL KNEES October 09, 2024 9:51 am BILATERAL KNEES October 16, 2024 9:05 am Chief Complaint Admit Date LEFT SHOULDER July 15, 2024 10: 43am Room 3 July 15, 2024 10: 46am LEFT HIP August 14, 2024 9:26a m Rm 3 August 14, 2024 10:07 am LEFT KNEE August 22, 2024 10:14 am LUMBAR RADICULOPATHY September 09, 2024 9:4 6am LEFT HIP September 18, 2024 9:37 am XRAY September 18, 2024 10:3 0am LOW BACK PAIN. RX HERE September 19, 2024 1 0:00am left knee October 02, 2024 9:53a m BILATERAL KNEES October 09, 2024 9:51 am BILATERAL KNEES October 16, 2024 9:05 am TYPE 2 DM October 29, 2024 1:45 pm Reason for Visit Admit Date Arthritis of left shoulder region July 15, 2024 10:43am Left knee DJD August 14, 2024 9:26a m Primary localized osteoarthritis of left hip August 14, 2024 9:26am Radicular low back pain August 14, 2024 9 :26am Sacral pressure sore August 14, 2024 9:26 am SI (sacroiliac) joint dysfunction August 142024 9:26am Left knee DJD August 22, 2024 10:14 am Localized osteoarthritis of left knee Ma y 2024 10:14am Body mass index [BMI] 40.0-44.9, adult J une 2024 9:37am Localized osteoarthritis of left knee Ju ne 2024 9:37am Obesity, class 3 September 18, 2024 9:37 am Right knee DJD September 18, 2024 9:37 am SI (sacroiliac) joint dysfunction August 312024 9:37am Localized osteoarthritis of left knee Ju ly 2024 9:53am Right knee DJD October 02, 2024 9:53a m Localized osteoarthritis of left knee Ju ly 2024 9:51am Right knee DJD October 09, 2024 9:51 am Localized osteoarthritis of left knee Ju ly 2024 9:05am Right knee DJD October 16, 2024 9:05 am Chief Complaint Admit Date LEFT SHOULDER July 15, 2024 10: 43am Room 3 July 15, 2024 10: 46am LEFT HIP August 14, 2024 9:26a m Rm 3 August 14, 2024 10:07 am LEFT KNEE August 22, 2024 10:14 am LUMBAR RADICULOPATHY September 09, 2024 9:4 6am LEFT HIP September 18, 2024 9:37 am XRAY September 18, 2024 10:3 0am LOW BACK PAIN. RX HERE September 19, 2024 1 0:00am left knee October 02, 2024 9:53a m BILATERAL KNEES October 09, 2024 9:51 am BILATERAL KNEES October 16, 2024 9:05 am TYPE 2 DM October 29, 2024 1:45 pm Med f/u Gemtesa November 03, 2024 9:4 7am Reason for Visit Admit Date Arthritis of left shoulder region July 15, 2024 10:43am Left knee DJD August 14, 2024 9:26a m Primary localized osteoarthritis of left hip August 14, 2024 9:26am Radicular low back pain August 14, 2024 9 :26am Sacral pressure sore August 14, 2024 9:26 am SI (sacroiliac) joint dysfunction August 142024 9:26am Left knee DJD August 22, 2024 10:14 am Localized osteoarthritis of left knee Ma y 2024 10:14am Body mass index [BMI] 40.0-44.9, adult J une 2024 9:37am Localized osteoarthritis of left knee Ju ne 2024 9:37am Obesity, class 3 September 18, 2024 9:37 am Right knee DJD September 18, 2024 9:37 am SI (sacroiliac) joint dysfunction August 312024 9:37am Localized osteoarthritis of left knee Ju ly 2024 9:53am Right knee DJD October 02, 2024 9:53a m Localized osteoarthritis of left knee Ju ly 2024 9:51am Right knee DJD October 09, 2024 9:51 am Localized osteoarthritis of left knee Ju ly 2024 9:05am Right knee DJD October 16, 2024 9:05 am Nocturia November 03, 2024 9:4 7am Overactive bladder November 03, 2024 9:4 7am Chief Complaint Admit Date LEFT HIP August 14, 2024 9:26a m Rm 3 August 14, 2024 10:07 am LEFT KNEE August 22, 2024 10:14 am LUMBAR RADICULOPATHY September 09, 2024 9:4 6am LEFT HIP September 18, 2024 9:37 am XRAY September 18, 2024 10:3 0am LOW BACK PAIN. RX HERE September 19, 2024 1 0:00am left knee October 02, 2024 9:53a m BILATERAL KNEES October 09, 2024 9:51 am BILATERAL KNEES October 16, 2024 9:05 am TYPE 2 DM October 29, 2024 1:45 pm Med f/u Gemtesa November 03, 2024 9:4 7am TYPE 2 DM December 02, 2024 9:31am Reason for Visit Admit Date Left knee DJD August 14, 2024 9:26a m Primary localized osteoarthritis of left hip August 14, 2024 9:26am Radicular low back pain August 14, 2024 9 :26am Sacral pressure sore August 14, 2024 9:26 am SI (sacroiliac) joint dysfunction August 142024 9:26am Left knee DJD August 22, 2024 10:14 am Localized osteoarthritis of left knee Ma y 2024 10:14am Body mass index [BMI] 40.0-44.9, adult J une 2024 9:37am Localized osteoarthritis of left knee Ju ne 2024 9:37am Obesity, class 3 September 18, 2024 9:37 am Right knee DJD September 18, 2024 9:37 am SI (sacroiliac) joint dysfunction August 312024 9:37am Localized osteoarthritis of left knee Ju ly 2024 9:53am Right knee DJD October 02, 2024 9:53a m Localized osteoarthritis of left knee Ju ly 2024 9:51am Right knee DJD October 09, 2024 9:51 am Localized osteoarthritis of left knee Ju ly 2024 9:05am Right knee DJD October 16, 2024 9:05 am Bacteriuria November 03, 2024 9:4 7am Mixed incontinence November 03, 2024 9:4 7am Nocturia November 03, 2024 9:4 7am Overactive bladder November 03, 2024 9:4 7am Chief Complaint Admit Date LUMBAR RADICULOPATHY September 09, 2024 9:4 6am LEFT HIP September 18, 2024 9:37 am XRAY September 18, 2024 10:3 0am LOW BACK PAIN. RX HERE September 19, 2024 1 0:00am left knee October 02, 2024 9:53a m BILATERAL KNEES October 09, 2024 9:51 am BILATERAL KNEES October 16, 2024 9:05 am TYPE 2 DM October 29, 2024 1:45 pm Med f/u Gemtesa November 03, 2024 9:4 7am TYPE 2 DM December 02, 2024 9:31am SCREENING December 15, 2024 3:17pm Amb Documentation December 29, 2024 12:28pm Reason for Visit Admit Date Body mass index [BMI] 40.0-44.9, adult J une 2024 9:37am Localized osteoarthritis of left knee Ju ne 2024 9:37am Obesity, class 3 September 18, 2024 9:37 am Right knee DJD September 18, 2024 9:37 am SI (sacroiliac) joint dysfunction August 312024 9:37am Localized osteoarthritis of left knee Ju 2024 9:53am Right knee DJD October 02, 2024 9:53a m Localized osteoarthritis of left knee Ju ly 2024 9:51am Right knee DJD October 09, 2024 9:51 am Localized osteoarthritis of left knee Ju ly 2024 9:05am Right knee DJD October 16, 2024 9:05 am Bacteriuria November 03, 2024 9:4 7am Mixed incontinence November 03, 2024 9:4 7am Nocturia November 03, 2024 9:4 7am Overactive bladder November 03, 2024 9:4 7am Chief Complaint Admit Date LUMBAR RADICULOPATHY September 09, 2024 9:4 6am LEFT HIP September 18, 2024 9:37 am XRAY September 18, 2024 10:3 0am LOW BACK PAIN. RX HERE September 19, 2024 1 0:00am left knee October 02, 2024 9:53a m BILATERAL KNEES October 09, 2024 9:51 am BILATERAL KNEES October 16, 2024 9:05 am TYPE 2 DM October 29, 2024 1:45 pm Med f/u Gemtesa November 03, 2024 9:4 7am TYPE 2 DM December 02, 2024 9:31am SCREENING December 15, 2024 3:17pm Amb Documentation December 29, 2024 12:28pm 1 Y FU/PREV PFM January 07, 2025 9: 20am Reason for Visit Admit Date Body mass index [BMI] 40.0-44.9, adult J une 2024 9:37am Localized osteoarthritis of left knee Ju ne 2024 9:37am Obesity, class 3 September 18, 2024 9:37 am Right knee DJD September 18, 2024 9:37 am SI (sacroiliac) joint dysfunction August 312024 9:37am Localized osteoarthritis of left knee Ju ly 2024 9:53am Right knee DJD October 02, 2024 9:53a m Localized osteoarthritis of left knee Ju ly 2024 9:51am Right knee DJD October 09, 2024 9:51 am Localized osteoarthritis of left knee Ju ly 2024 9:05am Right knee DJD October 16, 2024 9:05 am Bacteriuria November 03, 2024 9:4 7am Mixed incontinence November 03, 2024 9:4 7am Nocturia November 03, 2024 9:4 7am Overactive bladder November 03, 2024 9:4 7am Atherosclerotic heart diseas e of [place] coronary artery without angina pectoris January 07, 2025 9:20am Essential hypertension January 07, 2025 9:20am Hyperlipidemia January 07, 2025 9: 20am Chief Complaint Admit Date left knee October 02, 2024 9:53a m BILATERAL KNEES October 09, 2024 9:51 am BILATERAL KNEES October 16, 2024 9:05 am TYPE 2 DM October 29, 2024 1:45 pm Med f/u Gemtesa November 03, 2024 9:4 7am TYPE 2 DM December 02, 2024 9:31am SCREENING December 15, 2024 3:17pm Amb Documentation December 29, 2024 12:28pm 1 Y FU/PREV PFM January 07, 2025 9: 20am Amb Documentation January 08, 2025 9: 49am TYPE 2 DM January 12, 2025 1 :26pm POLYNEUROPATHY,UNSPECIFIED January 14, 2025 12:03pm POLYNEUROPATHY,UNSPECIFIED January 14, 2025 2:10pm BILATERAL KNEES January 16, 2025 9 :33am RUQ January 26, 2025 8 :32am Reason for Visit Admit Date Localized osteoarthritis of left knee Ju ly 2024 9:53am Right knee DJD October 02, 2024 9:53a m Localized osteoarthritis of left knee Ju ly 2024 9:51am Right knee DJD October 09, 2024 9:51 am Localized osteoarthritis of left knee Ju ly 2024 9:05am Right knee DJD October 16, 2024 9:05 am Bacteriuria November 03, 2024 9:4 7am Mixed incontinence November 03, 2024 9:4 7am Nocturia November 03, 2024 9:4 7am Overactive bladder November 03, 2024 9:4 7am Atherosclerotic heart diseas e of [place] coronary artery without angina pectoris January 07, 2025 9:20am Essential hypertension January 07, 2025 9:20am Hyperlipidemia January 07, 2025 9: 20am Localized osteoarthritis of left knee Oc tober 2024 9:33am Obesity, class 3 January 16, 2025 9 :33am Right knee DJD January 16, 2025 9 :33am Reason for Referral Specialty Diagnoses / Procedures Referred By Contac t Referred To Contact [facility] Diagnoses Urgency of urination HOOD (stress urinary incontinence, female) Procedures CONSULT TO PHYSICAL THERAPY PHYSICAL THERAPY EVALUATION HIGH COMPLEX 45 MINS Otilia Disla, AERONAUTICAL ENGINEERING TECHNOLOGIST.CATTLE R[employer]CHER [address] [place] [address] [facility] [place] [id number] Referral ID Status Reason Start Date Expiration Date Visits Requested Visits Authorized [id number] Pending Review Auto-Generat ed Referral 11/08/2022 11/08/2023 1 1 Specialty Diagnoses / Procedures Referred By Odette tompkins Referred To Contact [facility] Diagnoses Urgency of urination HOOD (stress urinary incontinence, female) Procedures PT REHAB FOLLOW UP ORDER THERAPEUTIC EXERCISES RE, EA 15 MIN. Carolin Dumont, PT [address] [place] [address] [facility] [place] [id number] Referral ID Status Reason Start Date Expiration Date Visits Requested Visits Authorized [id number] Authorized PCP Requested Referral Auto-Generate d Referral 11/14/2022 04/01/2023 4 4 Additional Source Comments INFORMATION SOURCE (unrecogn ized section and content) DATE CREATED AUTHOR 01/17/2019 [facility] DATE CREATED AUTHOR AUTHOR'S ORGANIZ ATION 03/18/2020 [facility] DATE CREATED AUTHOR AUTHOR'S ORGANIZ ATION 06/01/2020 [facility] DATE CREATED AUTHOR AUTHOR'S ORGANIZ ATION 06/01/2020 [facility] DATE CREATED AUTHOR AUTHOR'S ORGANIZ ATION 02/11/2023 [facility] DATE CREATED AUTHOR AUTHOR'S ORGANIZ ATION 02/07/2025 [facility] Goals (unrecognized section and content) Goals may be documented in a n alternate sectionGoals may be documented in an alternate sectionGoals may be documented in an alternate sectionGoals may be documented in an alternate sectionGoals may be documented in an alternate sectionGoals may be documented in an alternate sectionGoals may be documented in an alternate sectionGoals may be documented in an alternate sectionGoals may be documented in an alternate sectionGoals may be documented in an alternate sectionGoals may be documented in an alternate sectionGoals may be documented in an alternate sectionGoals may be documented in an alternate sectionGoals may be documented in an alternate sectionGoals may be documented in an alternate sectionGoals may be documented in an alternate sectionGoals may be documented in an alternate sectionGoals may be documented in an alternate sectionGoals may be documented in an alternate sectionGoals may be documented in an alternate sectionGoals may be documented in an alternate sectionGoals may be documented in an alternate sectionGoals may be documented in an alternate sectionGoals may be documented in an alternate sectionGoals may be documented in an alternate sectionGoals may be documented in an alternate sectionGoals may be documented in an alternate sectionGoals may be documented in an alternate sectionGoals may be documented in an alternate sectionGoals may be documented in an alternate sectionGoals may be documented in an alternate sectionGoals may be documented in an alternate sectionGoals may be documented in an alternate sectionGoals may be documented in an alternate section Care Teams (unrecognized sec tion and content) Team Status: Active Member Role Status Dates [facility] Family Provider Active [facility] Primary Care Provider A ctive Team Status: Inactive Member Role Status Dates [facility] Primary Care Provider, Referring Provider Active Dr. Maykel Mckinley DO Attending Provider Active Team Status: Inactive Member Role Status Dates [facility] Primary Care Provider, Referring Provider Active Silverio Street MD Attending Provider Active Team Status: Inactive Member Role Status Dates [facility] Primary Care Provider A ctive Dr. Guanakito Siu MD Attending Provider Active Team Status: Inactive Member Role Status Dates [facility] Primary Care Provider A ctive Yvrose Carreon PROCTOLOGIST, PROCTOLOGIST-C Attending Provider Active Team Status: Inactive Member Role Status Dates [facility] Primary Care Provider A ctive Dr. Maykel Mckinley DO Attending Provider Active Team Status: Active Member Role Status Dates [facility] Primary Care Provider A ctive Dr. Maykel Mckinley DO Attending Provider Active Team Status: Active Member Role Status Dates [facility] Primary Care Provider A ctive Silverio Street MD Attending Provider, Referring Prov ider Active Team Status: Inactive Member Role Status [facility] Primary C are Provider, Attending Provider, Referring Provider Active Yvrose Carreon PROCTOLOGIST, PROCTOLOGIST-C Other Provider Active Team Status: Inactive Member Role Status [facility] Primary Care Provider, Referring Provider Active Nicolas Wen PA, PA Attending Provider Active Team Status: Active Member Role Status Dates [facility] Primary Care Provider A ctive Dr. Maykel Mckinley DO Attending Provider, Referring Provider Active Team Status: Inactive Member Role Status Dates [facility] Primary Care Provider A ctive Dr. Moncho Gutierrez DO Emergency Provider Active Team Status: Inactive Member Role Status [facility] Primary Care Provider A ctive Dr. Maykel Mckinley DO Attending Provider, Referring Provider Active Team Status: Inactive Member Role Status Dates [facility] Primary Care Provider A ctive Dr. Emory Hugo MD Emergency Provider Active Team Status: Active Member Role Status Dates [facility] Primary Care Provider A ctive Dr. Antonio Donahue MD Attending Provider Active Dr. Emory Hugo MD Referring Provider Active Team Status: Inactive Member Role Status [facility] Primary Care Provider, Referring Provider Active Dr. Jerry Boggs MD Attending Provider Active Team Status: Active Member Role Status Dates [facility] Primary Care Provider A ctive Dr. Declan Méndez MD Attending Provider Active Team Status: Active Member Role Status [facility] Primary Care Provider A ctive Dr. Jerry Boggs MD Attending Provider Active Team Status: Inactive Member Role Status Dates [facility] Primary Care Provider A ctive Dr. Moncho Gutierrez DO Attending Provider, Emergency P rovider Active Team Status: Inactive Member Role Status [facility] Primary Care Provider A ctive Dr. Emory Hugo MD Attending Provider, Emergency Provi roselia Active Team Status: Inactive Member Role Status Dates [facility] Primary Care Provider A ctive ISAI Cedeno Attending Provider, Referring Provider Active Team Status: Active Member Role Status Dates [facility] Primary Care Provider A ctive Silverio Street MD Attending Provider, Referring Provider, Other Provider Active Yvrose Carreon PROCTOLOGIST, PROCTOLOGIST-C Other Provider Active Team Status: Inactive Member Role Status [facility] Primary Care Provider A ctive Silverio Street MD Attending Provider, Referring Prov ider Active Yvrose Carreon PROCTOLOGIST, PROCTOLOGIST-C Other Provider Active Team Status: Active Member Role Status [facility] Primary Care Provider A ctive Dr. Declan Méndez MD Attending Provider, Referring Pr ovider Active Team Status: Inactive Member Role Status [facility] Primary Care Provider A ctive Yvrose Carreon PROCTOLOGIST, PROCTOLOGIST-C Attending Provider, Referrin g Provider Active Team Status: Active Member Role Status [facility] Primary Care Provider A ctive Dr. Jerry Boggs MD Attending Provider Active ISAI Cedeno Referring Provider Active Team Status: Inactive Member Role Status [facility] Primary Care Provider A ctmagen Street MD Attending Provider, Referring Prov ider Active Team Status: Inactive Member Role Status [facility] Primary Care Provider, Referring Provider Active Dr. Jerry Boggs MD Active ISAI Cedeno Attending Provider Active Team Status: Active Member Role Status [facility] Family Provider Active Yvrose Carreon PROCTOLOGIST, PROCTOLOGIST-C Primary Care Provider Active Team Status: Active Member Role Status Dates Yvrose Carreon NP, PROCTOLOGIST-C Primary Care Provider Active Dr. Jerry Boggs MD Attending Provider Active Team Status: Inactive Member Role Status Dates Yvrose Carreon PROCTOLOGIST, PROCTOLOGIST-C Primary Care Provider Active Dr. Yamilet Rivera MD Emergency Provider Active Team Status: Inactive Member Role Status Dates Yvrose Carreon PROCTOLOGIST, PROCTOLOGIST-C Primary Care P rovider, Attending Provider, Referring Provider Active Mother Superior Relationship Specialty Start Date End Date Genesis Koroma CNP [address] [place] [address] Referring Internal Medicine 02/23/21 Yvrose Carreon NP [address] [place] [address] Referring Family Medicine 10/13/22 Mother Superior Relationship Specialty Start Date End Date Genesis Koroma CNP [address] [place] [address] Referring Internal Medicine 02/23/21 Yvrose Carreon NP [address] [place] [address] Referring Family Medicine 10/13/22 Mother Superior Relationship Specialty Start Date End Date Genesis Koroma CNP [address] [place] [address] Referring Internal Medicine 02/23/21 Yvrose Carreon NP [address] [place] [address] Referring Family Medicine 10/13/22 Team Status: Inactive Member Role Status Dates [facility] Referring Provider Jovan Street MD Attending Provider Active Yvrose Carreon PROCTOLOGIST, PROCTOLOGIST-C Primary Care Provider Active Team Status: Active Member Role Status Dates Yvrose Carreon PROCTOLOGIST, PROCTOLOGIST-C Primary Care Provider Active Dr. Jerry Boggs MD Attending Provider Active Dr. Yamilet Rivera MD Referring Provider Active Team Status: Inactive Member Role Status Dates Dr. Maykel Mckinley DO Attending Provider, Referring Provider Active Yvrose Carreon PROCTOLOGIST, PROCTOLOGIST-C Primary Care Provider Active Team Status: Inactive Member Role Status Dates Yvrose Carreon PROCTOLOGIST, PROCTOLOGIST-C Primary Care Provider Active Dr. Yamilet Rivera MD Attending Provider, Emergency Provider Active Mother Superior Relationship Specialty Start Date End Date FranciGenesis, CATTLE RANCHER [address] [place] [address] Referring Internal Medicine 02/23/21 Yvrose Carreon NP [address] [place], [place] [address] Referring Family Medicine 10/13/22 Mother Superior Relationship Specialty Start Date End Date FranciGenesis CATTLE RANCHER [address] [place] [address] Referring Internal Medicine 02/23/21 Yvrose Carreon NP [address] [place], [place] [address] Referring Family Medicine 10/13/22 Team Status: Inactive Member Role Status Dates [facility] Primary Care Provider, Referring Provider Active Dr. Jerry Boggs MD Active ISAI Iglesias Attending Provider Active Team Status: Active Member Role Status Dates [facility] Primary Care Provider A ctive Dr. Jerry Boggs MD Attending Provider Active ISAI Iglesias Referring Provider Active Team Status: Inactive Member Role Status Dates [facility] Primary Care Provider A ctive ISAI Iglesias Attending Provider, Referring Provid er Active Team Status: Inactive Member Role Status Dates Yvrose Carreon PROCTOLOGIST, PROCTOLOGIST-C Primary Care Provider Active KAJAL BLANTON NP-C Attending Provider, Referring Provider Active Team Status: Active Member Role Status Dates Dr. Maykel Mckinley DO Attending Provider, Referring Provider Active Yvrose Carreon PROCTOLOGIST, PROCTOLOGIST-C Primary Care Provider Active Team Status: Inactive Member Role Status Dates Dr. Fred Vines MD Active Juju Monroe PROCTOLOGIST, PROCTOLOGIST-C Attending Provider Active [facility] Primary Care Provider, Referring Provider Active Team Status: Inactive Member Role Status Dates Yvrose Carreon PROCTOLOGIST, PROCTOLOGIST-C Referring Provider Active Silverio Street MD Attending Provider Active [facility] Primary Care Provider A ctive Team Status: Inactive Member Role Status Dates Yvrose Carreon PROCTOLOGIST, PROCTOLOGIST-C Other Provider Active [facility] Primary C are Provider, Attending Provider, Referring Provider Active Team Status: Inactive Member Role Status Dates [facility] Primary Care Provider, Referring Provider Active ISAI Rascon Attending Provider Active Team Status: Inactive Member Role Status Dates [facility] Primary Care Provider A ctive Yvrose Carreon VSC, PROCTOLOGIST-C Attending Provider, Referri ng Provider Active Team Status: Active Member Role Status Dates [facility] Family Provider Active Yvrose Carreon VSC, PROCTOLOGIST-C Primary Care Provider Activ e Team Status: Inactive Member Role Status Dates Yvrose Carreon VSC, PROCTOLOGIST-C Primary Care Provider, Attending Provider, Referring Provider Active Team Status: Active Member Role Status Dates [facility] Primary Care Provider A ctive Dr. Guanakito Siu MD Attending Provider Active Silverio Street MD Referring Provider Active Team Status: Active Member Role Status Dates [facility] Primary Care Provider A ctive Silverio Street MD Attending Provider, Referring Provider, Other Provider Active Team Status: Active Member Role Status Dates [facility] Primary Care Provider A ctive Silverio Street MD Admit Provider, Refe rring Provider, Other Provider Active Dr. Zaheer Pemberton DO Attending Provider Active Team Status: Active Member Role Status Dates [facility] Primary Care Provider A ctmagen Street MD Admit Provider, Atte nding Provider, Referring Provider, Other Provider Active Dr. Ingris Sam DO Other Provider Active Team Status: Active Member Role Status Dates [facility] Primary Care Provider A ctive Silverio Street MD Admit Provider, Refe rring Provider, Other Provider Active Dr. Ingris Sam DO Attending Provider, Other Provide r Active Team Status: Inactive Member Role Status Dates [facility] Primary Care Provider A neda Street MD Admit Provider, Atte nding Provider, Referring Provider Active Dr. Ingris Sam DO Other Provider Active Mother Superior Relationship Specialty Start Date End Date Genesis Koroma, CATTLE RANCHER [address] [place] [address] [phone] (Work) Referring Internal Medicine 02/23/21 Yvrose Carreon NP [facility] [place] [phone] Referring Family Medicine 10/13/22 Mother Superior Relationship Specialty Start Date End Date Genesis Koroma CNP [address] [place] [address] [id number] Referring Internal Medicine 02/23/21 Yvrose Carreon NP [address] [place] [address] [phone] Referring Family Medicine 10/13/22 Mother Superior Relationship Specialty Start Date End Date Genesis Koroma CNP [address] [place] [address] [id number] Referring Internal Medicine 02/23/21 Yvrose Carreon NP [address] [place] [address] [phone] Referring Family Medicine 10/13/22 Team Status: Active Member Role Status Dates Yvrose PARKER, PROCTOLOGIST-C Primary Care Provider Activ e Team Status: Inactive Member Role Status Dates Yvrose PARKER PROCTOLOGIST-C Primary Care Provider Activ e Start: April 25, 2024 End: April 25, 2024 Yvrose PARKER, PROCTOLOGIST-C Referring Provider Active Start: April 25, 2024 End: April 25, 2024 ISAI Sierra Attending Provider Active Sta rt: April 25, 2024 End: April 25, 2024 Team Status: Inactive Member Role Status Dates ISAI Sierra Attending Provider Active Sta rt: April 25, 2024 End: April 25, 2024 ISAI Sierra Referring Provider Active Sta rt: April 25, 2024 End: April 25, 2024 Yvrose Nikhil VSC, PROCTOLOGIST-C Primary Care Provider Activ e Start: April 25, 2024 End: April 25, 2024 Team Status: Inactive Member Role Status Dates Yvrose ANGELC, PROCTOLOGIST-C Primary Care Provider Activ e Start: July 15, 2024 End: July 15, 2024 Yvrose ANGELC, PROCTOLOGIST-C Referring Provider Active Start: July 15, 2024 End: July 15, [address] MD Attending Provider Active St art: July 15, 2024 End: July 15, 2024 Team Status: Inactive Member Role Status Dates Yvrose ANGELC, PROCTOLOGIST-C Primary Care Provider Activ e Start: July 15, 2024 End: July 15, 2024 Dr. Guanakito Siu MD Attending Provider Active S tart: July 15, 2024 End: July 15, 2024 Team Status: Active Member Role Status Dates Yvrose ANGELC, PROCTOLOGIST-C Primary Care Provider Activ e Start: August 14, 2024 Yvrose ANGELC, PROCTOLOGIST-C Referring Provider Active Start: August 14, 2024 Christiana Amaral NP-C Attending Provider Active Start: August 14, 2024 Team Status: Inactive Member Role Status Dates Yvrose ANGELC, PROCTOLOGIST-C Primary Care Provider Activ e Start: August 14, 2024 End: August 14, 2024 Dr. Guanakito Siu MD Attending Provider Active S tart: August 14, 2024 End: August 14, 2024 Team Status: Inactive Member Role Status Dates Yvrose ANGELC, PROCTOLOGIST-C Primary Care Provider Activ e Start: August 14, 2024 End: August 14, 2024 Yvrose ANGELC, PROCTOLOGIST-C Referring Provider Active Start: August 14, 2024 End: August 14, 2024 GAMALIEL SuazoC Attending Provider Active Start: August 14, 2024 End: August 14, 2024 Team Status: Inactive Member Role Status Dates Yvrose ANGELC, PROCTOLOGIST-C Primary Care Provider Activ e Start: August 22, 2024 End: August 22, 2024 Yvrosecandy ANGELC, PROCTOLOGIST-C Referring Provider Active Start: August 22, 2024 End: August 22, 2024 Christiana Amaral , PROCTOLOGIST-C Attending Provider Active Start: August 22, 2024 End: August 22, 2024 Team Status: Inactive Member Role Status Dates Yvrose Nikhil STANLEYC, PROCTOLOGIST-C Primary Care Provider Activ e Start: September 09, 2024 End: September 09, 2024 Dr. Edson Adamson MD Attending Provider Active Start: September 09, 2024 End: September 09, 2024 Dr. Edson Adamson MD Referring Provider Active Start: September 09, 2024 End: September 09, 2024 Team Status: Active Member Role Status Dates Yvrose Nikhil STANLEYC, PROCTOLOGIST-C Primary Care Provider Activ e Start: September 12, 2024 Christiana Amaral PROCTOLOGIST-C Attending Provider Active Start: September 12, 2024 Christiana Amaral PROCTOLOGIST-C Referring Provider Active Start: September 12, 2024 Team Status: Active Member Role Status Dates Yvrose Nikhil STANLEYC, PROCTOLOGIST-C Primary Care Provider Activ e Start: September 17, 2024 Christiana Amaral PROCTOLOGIST-C Attending Provider Active Start: September 17, 2024 Christiana Amaral PROCTOLOGIST-C Referring Provider Active Start: September 17, 2024 Team Status: Inactive Member Role Status Dates Yvrose Nikhil STANLEYC, PROCTOLOGIST-C Primary Care Provider Activ e Start: September 18, 2024 End: September 18, 2024 Yvrose Nikhil STANLEYC, PROCTOLOGIST-C Referring Provider Active Start: September 18, 2024 End: September 18, 2024 Christiana Amaral PROCTOLOGIST-C Attending Provider Active Start: September 18, 2024 End: September 18, 2024 Team Status: Inactive Member Role Status Dates Yvrose Nikhil STANLEYC, PROCTOLOGIST-C Primary Care Provider Activ e Start: September 18, 2024 End: September 18, 2024 Dr. Guanakito Siu MD Attending Provider Active S tart: September 18, 2024 End: September 18, 2024 Team Status: Active Member Role/Relationship Status Dates Yvrose Nikhil VSC, PROCTOLOGIST-C Primary Care Provider Activ e Team Status: Inactive Member Role/Relationship Status Dates Yvrose Nikhil VSC, PROCTOLOGIST-C Primary Care Provider Activ e Start: July 15, 2024 End: July 15, 2024 Yvrose Carreon VSC, PROCTOLOGIST-C Referring Provider Active Start: July 15, 2024 End: July 15, [address] MD Attending Provider Active St art: July 15, 2024 End: July 15, 2024 Team Status: Inactive Member Role/Relationship Status Dates Yvrose ANGELC, PROCTOLOGIST-C Primary Care Provider Activ e Start: July 15, 2024 End: July 15, 2024 Dr. Guanakito Siu MD Attending Provider Active S tart: July 15, 2024 End: July 15, 2024 Team Status: Inactive Member Role/Relationship Status Dates Yvrose Carreon VSC, PROCTOLOGIST-C Primary Care Provider Activ e Start: August 14, 2024 End: August 14, 2024 Yvrose ANGELC, PROCTOLOGIST-C Referring Provider Active Start: August 14, 2024 End: August 14, 2024 Christiana Amaral NP-C Attending Provider Active Start: August 14, 2024 End: August 14, 2024 Team Status: Inactive Member Role/Relationship Status Dates Yvrose Carreon VSC, PROCTOLOGIST-C Primary Care Provider Activ e Start: August 14, 2024 End: August 14, 2024 Dr. Guanakito Siu MD Attending Provider Active S tart: August 14, 2024 End: August 14, 2024 Team Status: Inactive Member Role/Relationship Status Dates Yvrose ANGELC, PROCTOLOGIST-C Primary Care Provider Activ e Start: August 22, 2024 End: August 22, 2024 Yvrosecandy ANGELC, PROCTOLOGIST-C Referring Provider Active Start: August 22, 2024 End: August 22, 2024 Christiana Amaral NP-C Attending Provider Active Start: August 22, 2024 End: August 22, 2024 Team Status: Inactive Member Role/Relationship Status Dates Yvrose Carreon VSC, PROCTOLOGIST-C Primary Care Provider Activ e Start: September 09, 2024 End: September 09, 2024 Dr. Edson Adamson MD Attending Provider Active Start: September 09, 2024 End: September 09, 2024 Dr. Edson Adamson MD Referring Provider Active Start: September 09, 2024 End: September 09, 2024 Team Status: Inactive Member Role/Relationship Status Dates Yvrose Carreon VSC, PROCTOLOGIST-C Primary Care Provider Activ e Start: September 18, 2024 End: September 18, 2024 Yvrosecandy Carreon VSC, PROCTOLOGIST-C Referring Provider Active Start: September 18, 2024 End: September 18, 2024 Christiana Amaral PROCTOLOGIST-C Attending Provider Active Start: September 18, 2024 End: September 18, 2024 Team Status: Inactive Member Role/Relationship Status Dates Yvrose Nikhil VSC, PROCTOLOGIST-C Primary Care Provider Activ e Start: September 18, 2024 End: September 18, 2024 Dr. Guanakito Siu MD Attending Provider Active S tart: September 18, 2024 End: September 18, 2024 Team Status: Active Member Role/Relationship Status Dates Yvrose Nikhil VSC, PROCTOLOGIST-C Primary Care Provider Activ e Start: September 19, 2024 Christiana Amaral PROCTOLOGIST-C Attending Provider Active Start: September 19, 2024 Christiana Amaral PROCTOLOGIST-C Referring Provider Active Start: September 19, 2024 Team Status: Inactive Member Role/Relationship Status Dates Yvrose Nikhil VSC, PROCTOLOGIST-C Primary Care Provider Activ e Start: October 02, 2024 End: October 02, 2024 Yvrose ANGELC, PROCTOLOGIST-C Referring Provider Active Start: October 02, 2024 End: October 02, 2024 Christiana Amaral PROCTOLOGIST-C Attending Provider Active Start: October 02, 2024 End: October 02, 2024 Team Status: Active Member Role/Relationship Status Dates Yvrose Nikhil ANGELC, PROCTOLOGIST-C Primary Care Provider Activ e Start: October 07, 2024 Yvrose ANGELC, PROCTOLOGIST-C Attending Provider Active Start: October 07, 2024 Yvrose Carreon VSC, PROCTOLOGIST-C Referring Provider Active Start: October 07, 2024 Team Status: Inactive Member Role/Relationship Status Dates Yvrose Nikhil VSC, PROCTOLOGIST-C Primary Care Provider Activ e Start: October 09, 2024 End: October 09, 2024 Yvrose Carreon VSC, PROCTOLOGIST-C Referring Provider Active Start: October 09, 2024 End: October 09, 2024 Christiana Amaral PROCTOLOGIST-C Attending Provider Active Start: October 09, 2024 End: October 09, 2024 Team Status: Inactive Member Role/Relationship Status Dates Yvrose Carreon VSC, PROCTOLOGIST-C Primary Care Provider Activ e Start: October 07, 2024 End: October 07, 2024 Yvrose Carreon VSC, PROCTOLOGIST-C Attending Provider Active Start: October 07, 2024 End: October 07, 2024 Yvrose Carreon VSC, PROCTOLOGIST-C Referring Provider Active Start: October 07, 2024 End: October 07, 2024 Team Status: Inactive Member Role/Relationship Status Dates Yvrose Carreon VSC, PROCTOLOGIST-C Primary Care Provider Activ e Start: October 16, 2024 End: October 16, 2024 Yvrose Carreon VSC, PROCTOLOGIST-C Referring Provider Active Start: October 16, 2024 End: October 16, 2024 Christiana Amaral PROCTOLOGIST-C Attending Provider Active Start: October 16, 2024 End: October 16, 2024 Team Status: Inactive Member Role/Relationship Status Dates Yvrose Carreon VSC, PROCTOLOGIST-C Primary Care Provider Activ e Start: September 30, 2024 Dr. Triny Moctezuma MD Attending Provider Active Start: September 30, 2024 Team Status: Inactive Member Role/Relationship Status Dates Yvrose Carreon VSC, PROCTOLOGIST-C Primary Care Provider Activ e Start: October 02, 2024 End: October 02, 2024 Yvrose Carreon VSC, PROCTOLOGIST-C Referring Provider Active Start: October 02, 2024 End: October 02, 2024 Christiana Amaral PROCTOLOGIST-C Attending Provider Active Start: October 02, 2024 End: October 02, 2024 Team Status: Inactive Member Role/Relationship Status Dates Yvrose ANGELC, PROCTOLOGIST-C Primary Care Provider Activ e Start: October 07, 2024 End: October 07, 2024 Yvrose Carreon VSC, PROCTOLOGIST-C Attending Provider Active Start: October 07, 2024 End: October 07, 2024 Yvrose Carreon VSC, PROCTOLOGIST-C Referring Provider Active Start: October 07, 2024 End: October 07, 2024 Team Status: Inactive Member Role/Relationship Status Dates Yvrose Carreon VSC, PROCTOLOGIST-C Primary Care Provider Activ e Start: October 09, 2024 End: October 09, 2024 Yvrose Carreon VSC, PROCTOLOGIST-C Referring Provider Active Start: October 09, 2024 End: October 09, 2024 Christiana Amaral PROCTOLOGIST-C Attending Provider Active Start: October 09, 2024 End: October 09, 2024 Team Status: Inactive Member Role/Relationship Status Dates Yvrose Carreon VSC, PROCTOLOGIST-C Primary Care Provider Activ e Start: October 16, 2024 End: October 16, 2024 Yvrose PARKER, PROCTOLOGIST-C Referring Provider Active Start: October 16, 2024 End: October 16, 2024 Christiana Amaral PROCTOLOGIST-C Attending Provider Active Start: October 16, 2024 End: October 16, 2024 Team Status: Inactive Member Role/Relationship Status Dates Yvrose Nikhil STANLEYC, PROCTOLOGIST-C Primary Care Provider Activ e Start: October 29, 2024 End: October 30, 2024 Chrsitiana Amaral PROCTOLOGIST-C Attending Provider Active Start: October 29, 2024 End: October 30, 2024 Christiana Amaral PROCTOLOGIST-C Referring Provider Active Start: October 29, 2024 End: October 30, 2024 Team Status: Inactive Member Role/Relationship Status Dates Yvrose Carreon VSC, PROCTOLOGIST-C Primary Care Provider Activ e Start: November 03, 2024 End: November 03, 2024 Yvrose Nikhil VSC, PROCTOLOGIST-C Referring Provider Active Start: November 03, 2024 End: November 03, 2024 Dr. Triny Moctezuma MD Attending Provider Active Start: November 03, 2024 End: November 03, 2024 Team Status: Inactive Member Role/Relationship Status Dates Yvrose Nikhil VSC, PROCTOLOGIST-C Primary Care Provider Activ e Start: August 14, 2024 End: August 14, 2024 Yvroseapolinar Carreon STANLEYC, PROCTOLOGIST-C Referring Provider Active Start: August 14, 2024 End: August 14, 2024 Christiana Amaral PROCTOLOGIST-C Attending Provider Active Start: August 14, 2024 End: August 14, 2024 Team Status: Inactive Member Role/Relationship Status Dates Yvrose Nikhil VSC, PROCTOLOGIST-C Primary Care Provider Activ e Start: August 14, 2024 End: August 14, 2024 Dr. Guanakito Siu MD Attending Provider Active S tart: August 14, 2024 End: August 14, 2024 Team Status: Inactive Member Role/Relationship Status Dates Yvrose Nikhil VSC, PROCTOLOGIST-C Primary Care Provider Activ e Start: August 22, 2024 End: August 22, 2024 Yvrose PARKER, PROCTOLOGIST-C Referring Provider Active Start: August 22, 2024 End: August 22, 2024 Christiana Amaral PROCTOLOGIST-C Attending Provider Active Start: August 22, 2024 End: August 22, 2024 Team Status: Inactive Member Role/Relationship Status Dates Yvrose Carreon VSC, PROCTOLOGIST-C Primary Care Provider Activ e Start: September 09, 2024 End: September 09, 2024 Dr. Edson Adamson MD Attending Provider Active Start: September 09, 2024 End: September 09, 2024 Dr. Edson Adamson MD Referring Provider Active Start: September 09, 2024 End: September 09, 2024 Team Status: Inactive Member Role/Relationship Status Dates Yvrose Nikhil VSC, PROCTOLOGIST-C Primary Care Provider Activ e Start: September 18, 2024 End: September 18, 2024 Yvrose Nikhil VSC, PROCTOLOGIST-C Referring Provider Active Start: September 18, 2024 End: September 18, 2024 Christiana Amaral PROCTOLOGIST-C Attending Provider Active Start: September 18, 2024 End: September 18, 2024 Team Status: Inactive Member Role/Relationship Status Dates Yvrose Carreon VSC, PROCTOLOGIST-C Primary Care Provider Activ e Start: September 18, 2024 End: September 18, 2024 Dr. Guanakito Siu MD Attending Provider Active S tart: September 18, 2024 End: September 18, 2024 Team Status: Inactive Member Role/Relationship Status Dates Yvrose Carreon VSC, PROCTOLOGIST-C Primary Care Provider Activ e Start: September 19, 2024 End: September 19, 2024 Christiana Amaral PROCTOLOGIST-C Attending Provider Active Start: September 19, 2024 End: September 19, 2024 Christiana Amaral PROCTOLOGIST-C Referring Provider Active Start: September 19, 2024 End: September 19, 2024 Team Status: Inactive Member Role/Relationship Status Dates Yvrose Carreon VSC, PROCTOLOGIST-C Primary Care Provider Activ e Start: September 30, 2024 Dr. Triny Moctezuma MD Attending Provider Active Start: September 30, 2024 Team Status: Inactive Member Role/Relationship Status Dates Yvrose Carreon VSC, PROCTOLOGIST-C Primary Care Provider Activ e Start: October 02, 2024 End: October 02, 2024 Yvrose Nikhil VSC, PROCTOLOGIST-C Referring Provider Active Start: October 02, 2024 End: October 02, 2024 Christiana Amaral PROCTOLOGIST-C Attending Provider Active Start: October 02, 2024 End: October 02, 2024 Team Status: Inactive Member Role/Relationship Status Dates Yvrose ANGELC, PROCTOLOGIST-C Primary Care Provider Activ e Start: October 07, 2024 End: October 07, 2024 Yvrose Carreon VSC, PROCTOLOGIST-C Attending Provider Active Start: October 07, 2024 End: October 07, 2024 Yvrose Carreon VSC, PROCTOLOGIST-C Referring Provider Active Start: October 07, 2024 End: October 07, 2024 Team Status: Inactive Member Role/Relationship Status Dates Yvrose Carreon VSC, PROCTOLOGIST-C Primary Care Provider Activ e Start: October 09, 2024 End: October 09, 2024 Yvrose Carreon VSC, PROCTOLOGIST-C Referring Provider Active Start: October 09, 2024 End: October 09, 2024 Christiana Amaral PROCTOLOGIST-C Attending Provider Active Start: October 09, 2024 End: October 09, 2024 Team Status: Inactive Member Role/Relationship Status Dates Yvrose Carreon VSC, PROCTOLOGIST-C Primary Care Provider Activ e Start: October 16, 2024 End: October 16, 2024 Yvrose ANGELC, PROCTOLOGIST-C Referring Provider Active Start: October 16, 2024 End: October 16, 2024 Christiana Amaral PROCTOLOGIST-C Attending Provider Active Start: October 16, 2024 End: October 16, 2024 Team Status: Inactive Member Role/Relationship Status Dates Yvrose ANGELC, PROCTOLOGIST-C Primary Care Provider Activ e Start: October 29, 2024 End: October 30, 2024 Christiana Amaral PROCTOLOGIST-C Attending Provider Active Start: October 29, 2024 End: October 30, 2024 Christiana Amaral PROCTOLOGIST-C Referring Provider Active Start: October 29, 2024 End: October 30, 2024 Team Status: Inactive Member Role/Relationship Status Dates Yvrose Carreon VSC, PROCTOLOGIST-C Primary Care Provider Activ e Start: November 03, 2024 End: November 03, 2024 Yvrose Carreon VSC, PROCTOLOGIST-C Referring Provider Active Start: November 03, 2024 End: November 03, 2024 Dr. Triny Moctezuma MD Attending Provider Active Start: November 03, 2024 End: November 03, 2024 Team Status: Active Member Role/Relationship Status Dates Yvrose Nikhil VSC, PROCTOLOGIST-C Primary Care Provider Activ e Start: December 02, 2024 Christiana Amaral PROCTOLOGIST-C Attending Provider Active Start: December 02, 2024 Christiana Amaral NP-C Referring Provider Active Start: December 02, 2024 Team Status: Active Member Role/Relationship Status Dates Yvrose PARKER, PROCTOLOGIST-C Primary care physician Acti ve Team Status: Inactive Member Role/Relationship Status Dates Yvrose PARKER, PROCTOLOGIST-C Primary care physician Acti ve Start: September 09, 2024 End: September 09, 2024 Dr. Edson Adamson MD Attending physician Active Start: September 09, 2024 End: September 09, 2024 Dr. Edson Adamson MD Referring Provider Active Start: September 09, 2024 End: September 09, 2024 Team Status: Inactive Member Role/Relationship Status Dates Yvrose PARKER, PROCTOLOGIST-C Primary care physician Acti ve Start: September 18, 2024 End: September 18, 2024 Yvrose PARKER, PROCTOLOGIST-C Referring Provider Active Start: September 18, 2024 End: September 18, 2024 Christiana Amaral NP-C Attending physician Active Start: September 18, 2024 End: September 18, 2024 Team Status: Inactive Member Role/Relationship Status Dates Yvrosecandy ANGELC, PROCTOLOGIST-C Primary care physician Acti ve Start: September 18, 2024 End: September 18, 2024 Dr. Guanakito Siu MD Attending physician Active Start: September 18, 2024 End: September 18, 2024 Team Status: Inactive Member Role/Relationship Status Dates Yvrose PARKER, PROCTOLOGIST-C Primary care physician Acti ve Start: September 19, 2024 End: September 19, 2024 Christiana Amaral NP-C Attending physician Active Start: September 19, 2024 End: September 19, 2024 Christiana Amaral NP-C Referring Provider Active Start: September 19, 2024 End: September 19, 2024 Team Status: Inactive Member Role/Relationship Status Dates Yvrose PARKER, PROCTOLOGIST-C Primary care physician Acti ve Start: September 30, 2024 Dr. Triny Moctezuma MD Attending physician Active Start: September 30, 2024 Team Status: Inactive Member Role/Relationship Status Dates Yvrose ANGELC, PROCTOLOGIST-C Primary care physician Acti ve Start: October 02, 2024 End: October 02, 2024 Yvrose PARKER, PROCTOLOGIST-C Referring Provider Active Start: October 02, 2024 End: October 02, 2024 Christiana Amaral PROCTOLOGIST-C Attending physician Active Start: October 02, 2024 End: October 02, 2024 Team Status: Inactive Member Role/Relationship Status Dates Yvroseapolinar ANGELC, PROCTOLOGIST-C Primary care physician Acti ve Start: October 07, 2024 End: October 07, 2024 Yvrose PARKER, PROCTOLOGIST-C Attending physician Active Start: October 07, 2024 End: October 07, 2024 Yvrose ANGELC, PROCTOLOGIST-C Referring Provider Active Start: October 07, 2024 End: October 07, 2024 Team Status: Inactive Member Role/Relationship Status Dates Yvrose ANGELC, PROCTOLOGIST-C Primary care physician Acti ve Start: October 09, 2024 End: October 09, 2024 Yvrose PARKER, PROCTOLOGIST-C Referring Provider Active Start: October 09, 2024 End: October 09, 2024 Christiana Amaral PROCTOLOGIST-C Attending physician Active Start: October 09, 2024 End: October 09, 2024 Team Status: Inactive Member Role/Relationship Status Dates Yvrose Nikhil ANGELC, PROCTOLOGIST-C Primary care physician Acti ve Start: October 16, 2024 End: October 16, 2024 Yvrose PARKER, PROCTOLOGIST-C Referring Provider Active Start: October 16, 2024 End: October 16, 2024 Christiana Amaral PROCTOLOGIST-C Attending physician Active Start: October 16, 2024 End: October 16, 2024 Team Status: Inactive Member Role/Relationship Status Dates Yvroseapolinar PARKER, PROCTOLOGIST-C Primary care physician Acti ve Start: October 29, 2024 End: October 30, 2024 Christiana Amaral NP-C Attending physician Active Start: October 29, 2024 End: October 30, 2024 Christiana Amaral PROCTOLOGIST-C Referring Provider Active Start: October 29, 2024 End: October 30, 2024 Team Status: Inactive Member Role/Relationship Status Dates Yvrose ANGELC, PROCTOLOGIST-C Primary care physician Acti ve Start: November 03, 2024 End: November 03, 2024 Yvrose PARKER, PROCTOLOGIST-C Referring Provider Active Start: November 03, 2024 End: November 03, 2024 Dr. Triny Moctezuma MD Attending physician Active Start: November 03, 2024 End: November 03, 2024 Team Status: Active Member Role/Relationship Status Dates vYrose PARKER, PROCTOLOGIST-C Primary care physician Acti ve Start: December 02, 2024 Christiana Amaral NP-C Attending physician Active Start: December 02, 2024 Christiana Amaral NP-C Referring Provider Active Start: December 02, 2024 Team Status: Inactive Member Role/Relationship Status Dates Yvrose ANGELC, PROCTOLOGIST-C Primary care physician Acti ve Start: December 15, 2024 End: December 15, 2024 Tacho Lai VSC, PROCTOLOGIST-C Attending physician Active Start: December 15, 2024 End: December 15, 2024 Tacho Lai VSC, PROCTOLOGIST-C Referring Provider Active Start: December 15, 2024 End: December 15, 2024 Team Status: Active Member Role/Relationship Status Dates Yvrose PARKER, PROCTOLOGIST-C Primary care physician Acti ve Start: December 29, 2024 Miryam Bautista Attending physician Active Start: December 29, 2024 Team Status: Inactive Member Role/Relationship Status Dates Yvrose PARKER, PROCTOLOGIST-C Primary care physician Acti ve Start: December 02, 2024 End: December 30, 2024 Christiana Amaral NP-C Attending physician Active Start: December 02, 2024 End: December 30, 2024 Christiana Amaral NP-C Referring Provider Active Start: December 02, 2024 End: December 30, 2024 Team Status: Active Member Role/Relationship Status Dates Yvrose ANGELC, PROCTOLOGIST-C Primary care physician Acti ve Start: January 05, 2025 Tacho PARKER, PROCTOLOGIST-C Attending physician Active Start: January 05, 2025 Team Status: Inactive Member Role/Relationship Status Dates [facility] Referring Provider Acti ve Start: January 07, 2025 End: January 07, 2025 Riley Ruiz NP, PROCTOLOGIST-C Attending physician Active Start: January 07, 2025 End: January 07, 2025 Yvrose PARKER, PROCTOLOGIST-C Primary care physician Acti ve Start: January 07, 2025 End: January 07, 2025 Team Status: Inactive Member Role/Relationship Status Dates Yvrose ANGELC, PROCTOLOGIST-C Primary care physician Acti ve Start: September 30, 2024 Dr. Triny Moctezuma MD Attending physician Active Start: September 30, 2024 Team Status: Inactive Member Role/Relationship Status Dates Yvrose PARKER, PROCTOLOGIST-C Primary care physician Acti ve Start: October 02, 2024 End: October 02, 2024 Yvrose PARKER, PROCTOLOGIST-C Referring Provider Active Start: October 02, 2024 End: October 02, 2024 Christiana Amaral NP-C Attending physician Active Start: October 02, 2024 End: October 02, 2024 Team Status: Inactive Member Role/Relationship Status Dates Yvrose PARKER, PROCTOLOGIST-C Primary care physician Acti ve Start: October 07, 2024 End: October 07, 2024 Yvrose PARKER, PROCTOLOGIST-C Attending physician Active Start: October 07, 2024 End: October 07, 2024 Yvrose PARKER, PROCTOLOGIST-C Referring Provider Active Start: October 07, 2024 End: October 07, 2024 Team Status: Inactive Member Role/Relationship Status Dates Yvrose PARKER, PROCTOLOGIST-C Primary care physician Acti ve Start: October 09, 2024 End: October 09, 2024 Yvrose PARKER, PROCTOLOGIST-C Referring Provider Active Start: October 09, 2024 End: October 09, 2024 Christiana Amaral NP-C Attending physician Active Start: October 09, 2024 End: October 09, 2024 Team Status: Inactive Member Role/Relationship Status Dates Yvrose PARKER, PROCTOLOGIST-C Primary care physician Acti ve Start: October 16, 2024 End: October 16, 2024 Yvrose PARKER, PROCTOLOGIST-C Referring Provider Active Start: October 16, 2024 End: October 16, 2024 Christiana Amaral NP-C Attending physician Active Start: October 16, 2024 End: October 16, 2024 Team Status: Inactive Member Role/Relationship Status Dates Yvrose PARKER, PROCTOLOGIST-C Primary care physician Acti ve Start: October 29, 2024 End: October 30, 2024 Christiana Amaral NP-C Attending physician Active Start: October 29, 2024 End: October 30, 2024 Christiana Amaral NP-C Referring Provider Active Start: October 29, 2024 End: October 30, 2024 Team Status: Inactive Member Role/Relationship Status Dates Yvrose PARKER, PROCTOLOGIST-C Primary care physician Acti ve Start: November 03, 2024 End: November 03, 2024 Yvrose PARKER, PROCTOLOGIST-C Referring Provider Active Start: November 03, 2024 End: November 03, 2024 Dr. Triny Moctezuma MD Attending physician Active Start: November 03, 2024 End: November 03, 2024 Team Status: Inactive Member Role/Relationship Status Dates Yvrose PARKER, PROCTOLOGIST-C Primary care physician Acti ve Start: December 02, 2024 End: December 30, 2024 Christiana Amaral PROCTOLOGIST-C Attending physician Active Start: December 02, 2024 End: December 30, 2024 Christiana Amaral NP-C Referring Provider Active Start: December 02, 2024 End: December 30, 2024 Team Status: Inactive Member Role/Relationship Status Dates Yvrose ANGELC, PROCTOLOGIST-C Primary care physician Acti ve Start: December 15, 2024 End: December 15, 2024 Tacho Lai VSC, PROCTOLOGIST-C Attending physician Active Start: December 15, 2024 End: December 15, 2024 Tacho Lai VSC, PROCTOLOGIST-C Referring Provider Active Start: December 15, 2024 End: December 15, 2024 Team Status: Active Member Role/Relationship Status Dates Yvrose PARKER, PROCTOLOGIST-C Primary care physician Acti ve Start: December 29, 2024 Miryam Bautsita Attending physician Active Start: December 29, 2024 Team Status: Inactive Member Role/Relationship Status Dates Yvrose PARKER, PROCTOLOGIST-C Primary care physician Acti ve Start: January 05, 2025 End: January 05, 2025 Tacho Lai VSC, PROCTOLOGIST-C Attending physician Active Start: January 05, 2025 End: January 05, 2025 Team Status: Inactive Member Role/Relationship Status Dates [facility] Referring Provider Acti ve Start: January 07, 2025 End: January 07, 2025 Riley Ruiz NP, PROCTOLOGIST-C Attending physician Active Start: January 07, 2025 End: January 07, 2025 Yvrose ANGELC, PROCTOLOGIST-C Primary care physician Acti ve Start: January 07, 2025 End: January 07, 2025 Team Status: Active Member Role/Relationship Status Dates Yvrose Carreon VSC, PROCTOLOGIST-C Primary care physician Acti ve Start: January 08, 2025 Kajal Nunez LPN Attending physician Active Start: January 08, 2025 Team Status: Active Member Role/Relationship Status Dates Yvrose ANGELC, PROCTOLOGIST-C Primary care physician Acti ve Start: January 12, 2025 Christiana Amaral PROCTOLOGIST-C Attending physician Active Start: January 12, 2025 Christiana Amaral PROCTOLOGIST-C Referring Provider Active Start: January 12, 2025 Team Status: Inactive Member Role/Relationship Status Dates Yvrose Carreon VSC, PROCTOLOGIST-C Primary care physician Acti ve Start: January 14, 2025 End: January 14, 2025 Yvrose ANGELC, PROCTOLOGIST-C Attending physician Active Start: January 14, 2025 End: January 14, 2025 Yvrose Carreon VSC, PROCTOLOGIST-C Referring Provider Active Start: January 14, 2025 End: January 14, 2025 Team Status: Active Member Role/Relationship Status Dates Yvrose Carreon VSC, PROCTOLOGIST-C Primary care physician Acti ve Start: January 14, 2025 Yvrose Carreon VSC, PROCTOLOGIST-C Referring Provider Active Start: January 14, 2025 Yvrose ANGELC, PROCTOLOGIST-C Nurse Practitioner Active Start: January 14, 2025 Dr. Flor London MD Attending physician Active Start: January 14, 2025 Team Status: Inactive Member Role/Relationship Status Dates Yvrose Carreon VSC, PROCTOLOGIST-C Primary care physician Acti ve Start: January 16, 2025 End: January 16, 2025 Yvrose ANGELC, PROCTOLOGIST-C Referring Provider Active Start: January 16, 2025 End: January 16, 2025 Christiana Amaral PROCTOLOGIST-C Attending physician Active Start: January 16, 2025 End: January 16, 2025 Team Status: Active Member Role/Relationship Status Dates Yvrose Carreon VSC, PROCTOLOGIST-C Primary care physician Acti ve Start: January 26, 2025 Zebulun Beam VSC, PROCTOLOGIST-C Attending physician Active Start: January 26, 2025 Zebulun Beam VSC, PROCTOLOGIST-C Referring Provider Active Start: January 26, 2025 Team Status: Inactive Member Role/Relationship Status Dates Yvrose PARKER, PROCTOLOGIST-C Primary care physician Acti ve Start: October 02, 2024 End: October 02, 2024 Yvrose PARKER, PROCTOLOGIST-C Referring Provider Active Start: October 02, 2024 End: October 02, 2024 Christiana Amaral PROCTOLOGIST-C Attending physician Active Start: October 02, 2024 End: October 02, 2024 Team Status: Inactive Member Role/Relationship Status Dates Yvrose PARKER, PROCTOLOGIST-C Primary care physician Acti ve Start: October 07, 2024 End: October 07, 2024 Yvrose PARKER, PROCTOLOGIST-C Attending physician Active Start: October 07, 2024 End: October 07, 2024 Yvrose PARKER, PROCTOLOGIST-C Referring Provider Active Start: October 07, 2024 End: October 07, 2024 Team Status: Inactive Member Role/Relationship Status Dates Yvrose PARKER, PROCTOLOGIST-C Primary care physician Acti ve Start: October 09, 2024 End: October 09, 2024 Yvrose PARKER, PROCTOLOGIST-C Referring Provider Active Start: October 09, 2024 End: October 09, 2024 Christiana Amaral PROCTOLOGIST-C Attending physician Active Start: October 09, 2024 End: October 09, 2024 Team Status: Inactive Member Role/Relationship Status Dates Yvrose PARKER, PROCTOLOGIST-C Primary care physician Acti ve Start: October 16, 2024 End: October 16, 2024 Yvrose PARKER, PROCTOLOGIST-C Referring Provider Active Start: October 16, 2024 End: October 16, 2024 Christiana Amaral PROCTOLOGIST-C Attending physician Active Start: October 16, 2024 End: October 16, 2024 Team Status: Inactive Member Role/Relationship Status Dates Yvrose PARKER, PROCTOLOGIST-C Primary care physician Acti ve Start: October 29, 2024 End: October 30, 2024 Christiana Amaral PROCTOLOGIST-C Attending physician Active Start: October 29, 2024 End: October 30, 2024 Christiana Amaral PROCTOLOGIST-C Referring Provider Active Start: October 29, 2024 End: October 30, 2024 Team Status: Inactive Member Role/Relationship Status Dates Yvrose PARKER, PROCTOLOGIST-C Primary care physician Acti ve Start: November 03, 2024 End: November 03, 2024 Yvrose Carreon VSC, PROCTOLOGIST-C Referring Provider Active Start: November 03, 2024 End: November 03, 2024 Dr. Triny Moctezuma MD Attending physician Active Start: November 03, 2024 End: November 03, 2024 Team Status: Inactive Member Role/Relationship Status Dates Yvroseapolinar ANGELC, PROCTOLOGIST-C Primary care physician Acti ve Start: December 02, 2024 End: December 30, 2024 Christiana Amaral PROCTOLOGIST-C Attending physician Active Start: December 02, 2024 End: December 30, 2024 Christiana Amaral PROCTOLOGIST-C Referring Provider Active Start: December 02, 2024 End: December 30, 2024 Team Status: Inactive Member Role/Relationship Status Dates Yvrose ANGELC, PROCTOLOGIST-C Primary care physician Acti ve Start: December 15, 2024 End: December 15, 2024 Tacho Lai VSC, PROCTOLOGIST-C Attending physician Active Start: December 15, 2024 End: December 15, 2024 Tacho Lai VSC, PROCTOLOGIST-C Referring Provider Active Start: December 15, 2024 End: December 15, 2024 Team Status: Active Member Role/Relationship Status Dates Yvroseapolinar ANGELC, PROCTOLOGIST-C Primary care physician Acti ve Start: December 29, 2024 Miryam Bautista Attending physician Active Start: December 29, 2024 Team Status: Inactive Member Role/Relationship Status Dates Yvrosecandy Carreon VSC, PROCTOLOGIST-C Primary care physician Acti ve Start: January 05, 2025 End: January 05, 2025 Tacho Lai VSC, PROCTOLOGIST-C Attending physician Active Start: January 05, 2025 End: January 05, 2025 Team Status: Inactive Member Role/Relationship Status Dates [facility] Referring Provider Acti ve Start: January 07, 2025 End: January 07, 2025 Riley Ruiz NP, PROCTOLOGIST-C Attending physician Active Start: January 07, 2025 End: January 07, 2025 Yvrose Carreon VSC, PROCTOLOGIST-C Primary care physician Acti ve Start: January 07, 2025 End: January 07, 2025 Team Status: Active Member Role/Relationship Status Dates Yvrose ANGELC, PROCTOLOGIST-C Primary care physician Acti ve Start: January 08, 2025 Kajal Nunez LPN Attending physician Active Start: January 08, 2025 Team Status: Active Member Role/Relationship Status Dates Yvrose PARKER, PROCTOLOGIST-C Primary care physician Acti ve Start: January 12, 2025 Christiana Amaral NP-C Attending physician Active Start: January 12, 2025 Christiana Amaral NP-C Referring Provider Active Start: January 12, 2025 Team Status: Inactive Member Role/Relationship Status Dates Yvrose PARKER, PROCTOLOGIST-C Primary care physician Acti ve Start: January 14, 2025 End: January 14, 2025 Yvrose PARKER, PROCTOLOGIST-C Attending physician Active Start: January 14, 2025 End: January 14, 2025 Yvrose PARKER, PROCTOLOGIST-C Referring Provider Active Start: January 14, 2025 End: January 14, 2025 Team Status: Active Member Role/Relationship Status Dates Yvrose PARKER, PROCTOLOGIST-C Primary care physician Acti ve Start: January 14, 2025 Yvrose PARKER, PROCTOLOGIST-C Referring Provider Active Start: January 14, 2025 Yvrose PARKER, PROCTOLOGIST-C Nurse Practitioner Active Start: January 14, 2025 Dr. Flor London MD Attending physician Active Start: January 14, 2025 Team Status: Inactive Member Role/Relationship Status Dates Yvrose PARKER, PROCTOLOGIST-C Primary care physician Acti ve Start: January 16, 2025 End: January 16, 2025 Yvrose PARKER, PROCTOLOGIST-C Referring Provider Active Start: January 16, 2025 End: January 16, 2025 Christiana Amaral NP-C Attending physician Active Start: January 16, 2025 End: January 16, 2025 Team Status: Active Member Role/Relationship Status Dates Yvrose PARKER, PROCTOLOGIST-C Primary care physician Acti ve Start: January 26, 2025 Tacho Lai VSC, PROCTOLOGIST-C Attending physician Active Start: January 26, 2025 Tacho Lai VSC, PROCTOLOGIST-C Referring Provider Active Start: January 26, 2025 Source Comments (unrecognize d section and content) In the event this informatio n is protected by the Federal Confidentiality of Alcohol and Drug Abuse Patient Records regulations: The Federal rules restrict any use of the information to criminally investigate or prosecute any alcohol or drug abuse patient.[facility] the event this information is protected by the Federal Confidentiality of Alcohol and Drug Abuse Patient Records regulations: The Federal rules restrict any use of the information to criminally investigate or prosecute any alcohol or drug abuse patient.[facility] Center[facility] the event this information is protected by the Federal Confidentiality of Alcohol and Drug Abuse Patient Records regulations: The Federal rules restrict any use of the information to criminally investigate or prosecute any alcohol or drug abuse patient.[facility] the event this information is protected by the Federal Confidentiality of Alcohol and Drug Abuse Patient Records regulations: The Federal rules restrict any use of the information to criminally investigate or prosecute any alcohol or drug abuse patient.[facility] the event this information is protected by the Federal Confidentiality of Alcohol and Drug Abuse Patient Records regulations: The Federal rules restrict any use of the information to criminally investigate or prosecute any alcohol or drug abuse patient.[facility] Center[facility] the event this information is protected by the Federal Confidentiality of Alcohol and Drug Abuse Patient Records regulations: The Federal rules restrict any use of the information to criminally investigate or prosecute any alcohol or drug abuse patient.[facility] Center[facility] the event this information is protected by the Federal Confidentiality of Alcohol and Drug Abuse Patient Records regulations: The Federal rules restrict any use of the information to criminally investigate or prosecute any alcohol or drug abuse patient.[facility] Center[facility] the event this information is protected by the Federal Confidentiality of Alcohol and Drug Abuse Patient Records regulations: The Federal rules restrict any use of the information to criminally investigate or prosecute any alcohol or drug abuse patient.[facility] Reason for Visit (unrecogniz ed section and content) Reason Comments Consult Urinary Incontinence Reason Comments PT Eval Specialty Diagnoses / Procedures Referred By Contac t Referred To Contact [facility] Diagnoses Urgency of urination HOOD (stress urinary incontinence, female) Procedures CONSULT TO PHYSICAL THERAPY PHYSICAL THERAPY EVALUATION HIGH COMPLEX 45 MINS Otilia Disla APRN.[facility] [address] [place] [address] [facility] [place] [id number] Referral ID Status Reason Start Date Expiration Date V isits Requested Visits Authorized [id number] Closed Auto-Generate d Referral 11/11/2022 04/01/2023 1 1 Reason Comments Physical Therapy Specialty Diagnoses / Procedures Referred By Contac t Referred To Contact [facility] Diagnoses Urgency of urination HOOD (stress urinary incontinence, female) Procedures PT REHAB FOLLOW UP ORDER THERAPEUTIC EXERCISES RE, EA 15 MIN. Carolin Dumont, PT [address] [place] [address] [place] [id number] Referral ID Status Reason Start Date Expiration Date Visits Requested Visits Authorized [id number] Authorized PCP Requested Referral Auto-Generate d Referral 11/14/2022 04/01/2023 4 4 Reason Comments Urology Outside records Reason Comments Refill Request FOR RECORDS PERTAINING TO PATIENTS WHO ARE OR HAVE BEEN ENROLLED IN A CHEMICAL DEPENDENCY/SUBSTANCEABUSE PROGRAM, SOME INFORMATION MAY BE OMITTED. This clinical summary was aggregated from multiple sources. Caution should be exercised in using it in the provision of clinical care. This summary normalizes information from multiple sources, and as a consequence, information in this document may materially change the coding, format and clinical context of patient data. In addition, data may be omitted in some cases. CLINICAL DECISIONS SHOULD BE BASED ON THE PRIMARY CLINICAL RECORDS. [employer] provides no warranty or guarantee of the accuracy or completeness of information in this document.
== END | disposition home or self-care (01) ==
LOC: LABSPEC 14:34
PROVIDERS: PCP Nurse Practitioner Family; Referring Provider Nurse Practitioner Family; Visit Provider Nurse Practitioner Family
DX: R10.9 Unspecified abdominal pain (principal)
CPT/HCPCS: 81001; 87086; 87088; 87186

== ENCOUNTER → 2025-02-25 | Outpatient (CLI) | payer MEDICARE, SELFPAY ==
--- NOTE | 2025-02-25 12:58 | US_ITS ---
PROCEDURE: KIDNEY AND BLADDER 02/25/2025 REASON FOR EXAM: ABDOMINAL PAIN TECHNIQUE: Procedure Code: USKI Modality: US Procedure: KIDNEY AND BLADDER FINDINGS: Right kidney measures 13 cm and left kidney measures 13 cm. Normal echotexture of bilateral kidneys. No hydronephrosis. No renal stones. Urinary bladder is unremarkable. US/Kidney and Bladder IMPRESSION: No hydronephrosis. Reading Location: [id number]
== END | disposition home or self-care (01) ==
PROVIDERS: PCP Nurse Practitioner Family; Referring Provider Nurse Practitioner Family; Visit Provider Nurse Practitioner Family
DX: R10.11 Right upper quadrant pain (principal)
CPT/HCPCS: 76770; 82274

== ENCOUNTER 2025-03-02 13:57 | Outpatient (RCR) | payer MEDICARE, SELFPAY | END 2025-04-01 23:59 | LOC: NS 13:57 | PROVIDERS: PCP Nurse Practitioner Family; Referring Provider Nurse Practitioner Family; Visit Provider Nurse Practitioner Family | DX: Z71.3 Dietary counseling and surveillance (principal); E11.9 Type 2 diabetes mellitus without complications; E66.813 Obesity, class 3; Z68.41 Body mass index [BMI] 40.0-44.9, adult | CPT/HCPCS: 97803 ==

== ENCOUNTER → 2025-03-02 | Outpatient (CLI) | payer MEDICARE, SELFPAY ==
[2025-03-02 11:59] LABS: Mucous, Urine 0 SEEN /hpf (<or=2+); Red Blood Cells-Urine 0 SEEN /hpf (0-5); Squamous Epithelial Cells - UA 0 SEEN /hpf (5-10)
[2025-03-02 16:54] LABS: Color, Urine Yellow (Yellow); Glucose, Dipstick Normal (Normal); Ketone-Dipstick Negative (Negative); Leukocyte Esterase-Dipstick 100 /ul (Negative); Nitrite-Dipstick Negative (Negative); Occult Blood-Urine Negative /ul (Negative); Protein-Dipstick Negative (Negative); Specific Gravity, Urine 1.005 (1.002-1.030); Urine Bilirubin Dipstick Negative (Negative)
== END | disposition home or self-care (01) ==
LOC: LABSPEC 11:56
PROVIDERS: PCP Nurse Practitioner Family
DX: E11.9 Type 2 diabetes mellitus without complications (principal); R10.A2 Flank pain, left side
CPT/HCPCS: 36415; 81001; 87077; 87086; 87088; 87186